=== PATIENT | male | born 1945 | race Caucasian/White ===

== ENCOUNTER → 2020-05-29 11:38 | Outpatient (CLI) | payer MEDICARE, SELFPAY ==
--- NOTE | ~2020-05-29 | CT_ITS ---
EXAMINATION: CT lung screening DATE: 05/29/2020 12:47 INDICATION: Personal history of tobacco dependence, current smoker with 30 pack year history TECHNIQUE: Computed tomography (CT) of the chest was performed without intravenous contrast. The dose -length product (DLP) was 144.58 mGy-cm. Automated exposure control and iterative reconstruction tech [employer] were employed. COMPARISON: 08/14/2019 FINDINGS: There is mild emphysema. There are stable 5 mm nodules of the right lower lobe on images 69 and 101. There are subpleural reticular and groundglass opacities with a lower lung zone predominanc e, likely mild chronic interstitial lung disease. There is no pleural effusion or pneumothorax. No pa thologically enlarged thoracic lymph nodes are identified. The heart size is normal. Calcified wise ry artery atherosclerosis is noted. There are bridging osteophytes at multiple levels in the spine, c onsistent with diffuse idiopathic skeletal hyperostosis (DISH). Pain management devices are implanted in the flanks with their leads coursing through the posterior subcutaneous tissues beyond the superi or margin of the CT. IMPRESSION: 1. Lung-RADS category 2: Benign appearance or behavior. Continue annual screening with noncontrast lo w-dose chest CT in 12 months. Reviewed, dictated and finalized at location B. IMPRESSION: 1. Lung-RADS category 2: Benign appearance or behavior. Continue annual screeni ng with noncontrast low-dose chest CT in 12 months.
== END ==
PROVIDERS: Visit Provider Family Medicine
DX: Z87.891 Personal history of nicotine dependence (principal)
CPT/HCPCS: G0297

== ENCOUNTER 2020-07-24 01:32 | Outpatient (CLI) | payer MEDICARE, SELFPAY ==
[2020-07-25 03:00] LABS: SARS-CoV-2 RNA PCR Negative
== END 2020-07-24 01:33 | disposition home or self-care (01) ==
LOC: ANHCOVIDDT 01:33
PROVIDERS: Visit Provider Internal Medicine Gastroenterology
DX: Z01.812 Encounter for preprocedural laboratory examination (principal); Z20.828 Contact with and (suspected) exposure to other viral communicable diseases
CPT/HCPCS: 87635; C9803; U0003

== ENCOUNTER 2020-07-26 01:26 | Day surgery (SDC) | payer MEDICARE, SELFPAY ==
[2020-07-23 13:19] VITALS: BMI 23.3
[2020-07-26 07:22] VITALS: BP 115/62; PULSE 55; RESP 18; TEMP 36.4; O2SAT 96
[2020-07-26] MEDS: LACTATED RINGERS 1,000 ML 150 ML IV CONT (07:31)
--- NOTE | 2020-07-26 07:35 | WPDANESEPPF ---
Anes - Initial Pre Proc Eval Procedure: Operation Date: 07/26/20 08:30 Proposed Procedures p Esophagogastroduodenoscopy - Armando Ang MD Date/Time: 07/26/20 07:35 Surgeon: Armando Ang MD Pre Op Diagnosis: Martin's Esophagus Patient Data Age: 75 Gender: M Height: 6 ft Weight: 80.2 kg Last Vital Signs Temp 36.4 C L 07/26/20 07:22 Pulse 55 L 07/26/20 07:22 Resp 18 07/26/20 07:22 BP 115/62 07/26/20 07:22 Pulse Ox 96 07/26/20 07:22 Allergies Allergy/AdvReac Type Severity Reaction Status Date / Time No Known Allergies Allergy Verified 07/26/20 07:21 Home Medications Medication Instructions Recorded Confirmed Type aspirin 81 mg PO DAILY 08/14/19 07/23/20 History fexofenadine [Allergy Relief 180 mg PO DAILY 08/14/19 07/23/20 History (fexofenadine)] hydrocodone-acetaminophen 1 tablet PO TID PRN 08/14/19 07/23/20 History lidocaine 1 patch TRANSDERMAL DAILY PRN 08/14/19 07/23/20 History nitroglycerin 1 tab-cap SUBLINGUAL Q15-20M PRN 08/14/19 07/23/20 History pantoprazole 40 mg PO DAILY 08/14/19 07/23/20 History duloxetine 20 mg capsule,delayed 20 mg PO BID #180 cap 01/16/20 07/23/20 Rx release zolpidem 10 mg tablet 10 mg PO .QHS #90 tablet 02/28/20 07/23/20 Rx tizanidine 4 mg capsule 4 mg PO BID #180 cap 03/26/20 07/23/20 Rx diclofenac sodium 75 mg 75 mg PO BID #180 tablet 04/09/20 07/23/20 Rx tablet,delayed release atorvastatin 20 mg PO HS 07/23/20 07/23/20 History bupropion HCl 150 mg PO DAILY 07/23/20 07/23/20 History cholecalciferol (vitamin D3) 25 mcg PO DAILY 07/23/20 07/23/20 History [Vitamin D3] cyanocobalamin (vitamin B-12) 1,000 mcg PO DAILY 07/23/20 07/23/20 History ferrous sulfate 142 mg PO DAILY 07/23/20 07/23/20 History morphine 07/23/20 History potassium 99 mg PO DAILY 07/23/20 07/23/20 History pregabalin 150 mg PO TID 07/23/20 07/23/20 History ropinirole 1 mg PO HS 07/23/20 07/23/20 History trimethoprim 100 mg PO DAILY 07/23/20 07/23/20 History Patient hx anesthesia problems: none Family hx anesthesia problems: none PMFSH Past Medical History Medical History Acute sepsis Anxiety Arthritis, lumbar spine Barretts esophagus BPH w/o urinary obs/LUTS CAD (coronary artery disease) Carpal tunnel syndrome DDD (degenerative disc disease) Delirium due to general medical condition Depression Elevated blood pressure reading without diagnosis of hypertension Elevated troponin Esophagitis GERD (gastroesophageal reflux disease) History of angina History of heart attack Hypercholesteremia Hyperlipidemia, unspecified Hypertension Infectious encephalopathy Left cataract Nicotine dependence, cigarettes, uncomplicated Nicotine dependence, unspecified, uncomplicated Normocytic anemia Occlusion and stenosis of bilateral carotid arteries Other intervertebral disc degeneration, thoracic region Pneumonia PVD (peripheral vascular disease) Sleep apnea Urinary tract infection UTI (urinary tract infection) Surgical History Surgical History History of angioplasty History of appendectomy History of laminectomy History of repair of right rotator cuff Hx of cardiac cath with 3 stents Family History Family History Grandparent Diabetes mellitus Mother Family history of cardiovascular disease Acute myocardial infarction Father Family history of Alzheimer's disease Social History Social History Smoking packs per day: 1 Smoking cigarettes per day: 20.0 Years smoked: 55 Smoking pack-years: 55.00 Smoking status: Current every day smoker Tobacco type: cigarettes Second hand tobacco smoke exposure: Yes Alcohol intake: current Drinks per week: 5 Substance use: never Substance use type: does not use Living arrangements: with [facility]
--- NOTE | 2020-07-26 07:54 | WPDGICN ---
Assessment and Plan Assessment and plan (1) Martin's esophagus: Code(s): K22.70 - Martin's esophagus without dysplasia Status: Acute Assessment and Plan: Patient with known Martin's esophagus felt to be secondary to acid reflux he has had low-grade dysplasia by endoscopic biopsy as recently as 2018. Plan is to continue proton pump inhibitor on daily basis. Strict anti reflux measures encouraged. Follow-up EGD did at least every 3 years but depending on results of histology (2) Gastro-esophageal reflux disease with esophagitis: Code(s): K21.0 - Gastro-esophageal reflux disease with esophagitis Status: Acute GI Consult Note Consult date/time: 07/26/20 07:54 HPI: Gregory Scherer is a 75 year old male Seen in evaluation at the request of Dr. Encarnacion. Patient has a known history of Martin's esophagus. He denies any heartburn or dysphagia. Most recent endoscopy in 2018 revealed low-grade dysplasia. Patient presents today for surveillance EGD with additional biopsies. Continued use of pantoprazole on a daily basis advised anti-reflux measures strongly encourage. Patient currently denies any overt symptoms. Review of Systems Review of Systems: All systems reviewed & are unremarkable except as noted in HPI and below PMFSH Past Medical History Medical History (Updated 07/26/20 @ 07:55 by Armando Ang MD) Acute sepsis Anxiety Arthritis, lumbar spine Barretts esophagus BPH w/o urinary obs/LUTS CAD (coronary artery disease) Carpal tunnel syndrome DDD (degenerative disc disease) Delirium due to general medical condition Depression Elevated blood pressure reading without diagnosis of hypertension Elevated troponin Esophagitis GERD (gastroesophageal reflux disease) History of angina History of heart attack Hypercholesteremia Hyperlipidemia, unspecified Hypertension Infectious encephalopathy Left cataract Nicotine dependence, cigarettes, uncomplicated Nicotine dependence, unspecified, uncomplicated Normocytic anemia Occlusion and stenosis of bilateral carotid arteries Other intervertebral disc degeneration, thoracic region Pneumonia PVD (peripheral vascular disease) Sleep apnea Urinary tract infection UTI (urinary tract infection) Surgical History Surgical History History of angioplasty History of appendectomy History of laminectomy History of repair of right rotator cuff Hx of cardiac cath with 3 stents Family History Family History Grandparent Diabetes mellitus Mother Family history of cardiovascular disease Acute myocardial infarction Father Family history of Alzheimer's disease Social History Social History Smoking packs per day: 1 Smoking cigarettes per day: 20.0 Years smoked: 55 Smoking pack-years: 55.00 Smoking status: Current every day smoker Tobacco type: cigarettes Second hand tobacco smoke exposure: Yes Alcohol intake: current Drinks per week: 5 Substance use: never Substance use type: does not use Living arrangements: with family Spiritual care concerns: No Agree to blood products: Yes Meds Home Medications and Allergies Home Medications Medication Instructions Recorded Confirmed Type aspirin 81 mg PO DAILY 08/14/19 07/23/20 History fexofenadine [Allergy Relief 180 mg PO DAILY 08/14/19 07/23/20 History (fexofenadine)] hydrocodone-acetaminophen 1 tablet PO TID PRN 08/14/19 07/23/20 History lidocaine 1 patch TRANSDERMAL DAILY PRN 08/14/19 07/23/20 History nitroglycerin 1 tab-cap SUBLINGUAL Q15-20M PRN 08/14/19 07/23/20 History pantoprazole 40 mg PO DAILY 08/14/19 07/23/20 History duloxetine 20 mg capsule,delayed 20 mg PO BID #180 cap 01/16/20 07/23/20 Rx release zolpidem 10 mg tablet 10 mg PO .QHS #90 tablet 02/28/20 07/23/20 Rx tizanidine 4 mg c
[2020-07-26 08:45] VITALS: BP 79/53; PULSE 47; RESP 21; O2SAT 98
[2020-07-26 08:55] VITALS: BP 84/53; PULSE 46; RESP 18; O2SAT 99
[2020-07-26 09:05] VITALS: BP 88/56; PULSE 47; RESP 20; O2SAT 99
[2020-07-26 09:15] VITALS: BP 104/63; PULSE 46; RESP 18; O2SAT 99
== END 2020-07-26 09:28 | disposition home or self-care (01) ==
PROVIDERS: PCP Family Medicine; Visit Provider Internal Medicine Gastroenterology
PROC: 0DJ08ZZ Inspection of Upper Intestinal Tract, Via Natural or Artificial Opening Endoscopic (ICD-10-PCS; CPT 43235; principal; 2020-07-26 08:30)
DX: K22.70 Barrett's esophagus without dysplasia (principal); K21.00 Gastro-esophageal reflux disease with esophagitis, without bleeding; Q39.4 Esophageal web; I10 Essential (primary) hypertension; I65.23 Occlusion and stenosis of bilateral carotid arteries; I73.9 Peripheral vascular disease, unspecified; I20.9 Angina pectoris, unspecified; E78.00 Pure hypercholesterolemia, unspecified; E78.5 Hyperlipidemia, unspecified; G47.30 Sleep apnea, unspecified; N40.0 Benign prostatic hyperplasia without lower urinary tract symptoms; M47.816 Spondylosis without myelopathy or radiculopathy, lumbar region; F41.9 Anxiety disorder, unspecified; F32.9 Major depressive disorder, single episode, unspecified; F17.210 Nicotine dependence, cigarettes, uncomplicated; Z95.5 Presence of coronary angioplasty implant and graft
CPT/HCPCS: 43239; 43450; 88305; 88342; J2704; J7120

== ENCOUNTER → 2021-06-30 08:16 | Outpatient (CLI) | payer MEDICARE, SELFPAY ==
--- NOTE | ~2021-06-30 | CT_ITS ---
EXAMINATION: CT lung screening DATE: 06/30/2021 08:47 INDICATION: Nicotine dependence, cigarettes, with unspecified nicotine-i TECHNIQUE: Computed tomography (CT) of the chest was performed without intravenous contrast. Addition al 3D reconstructions utilizing coronal maximum intensity projection (MIP) were performed. Automated exposure control and iterative reconstruction technique were employed. The dose-length product was 12 7.28 mGy-cm. COMPARISON: 05/29/2020 FINDINGS: Mild emphysema. Chronic irregular septal line thickening at the periphery of the lungs with lower alfonso g predominance without honeycombing consistent with nonspecific interstitial pneumonia (NSIP) pattern chronic interstitial lung disease. Again seen are several scattered small calcified and noncalcified pulmonary nodules. No interval meade ge in the 2 largest a 5 mm noncalcified nodules in the right lower lobe. No new or enlarging pulmonar y nodules, pneumonia, pulmonary edema or pleural effusion. Heart size is normal. Atherosclerotic oriana nary artery calcifications and possible stenting. Aortic valve calcification. Thoracic aorta is mikal l in caliber. No pathologically enlarged thoracic lymphadenopathy. 2 mm nonobstructing stone in upper pole calyx of the left kidney. Moderate thoracic spondylosis. Chronic mild anterior wedging at T5 an d T7. Intrathecal catheter extending cephalad along the upper lumbar and lower thoracic spine with di stal tip at level of T10. Pain management device is at the bilateral flanks with leads extending into the subcutaneous tissues overlying the posterior aspect of the upper thorax and additional leads ext ending into the visualized central canal of the lower cervical spine and beyond the cephalad margin o f the [id number]. IMPRESSION: 1. Lung-RADS category 2: Benign appearance or behavior. Continue annual screening with noncontrast lo w-dose chest CT in 12 months. 2. Mild emphysema with stable appearance of mild NSIP pattern chronic interstitial lung disease. Reviewed, dictated and finalized at location A. IMPRESSION: 1. Lung-RADS category 2: Benign appearance or behavior. Continue annual screeni ng with noncontrast low-dose chest CT in 12 months. 2. Mild emphysema with stable appearance of mild NSIP pattern chronic interstit ial lung disease.
== END ==
PROVIDERS: PCP Family Medicine; Visit Provider Physician Assistant
DX: Z12.2 Encounter for screening for malignant neoplasm of respiratory organs (principal); Z87.891 Personal history of nicotine dependence; J43.9 Emphysema, unspecified
CPT/HCPCS: 71271

== ENCOUNTER 2021-08-25 00:44 | Day surgery (SDC) | payer MEDICARE, SELFPAY ==
[2021-08-06 13:51] VITALS: BMI 23.9
--- NOTE | 2021-08-25 09:20 | WPDGICN ---
Assessment and Plan Assessment and plan (1) Encounter for screening colonoscopy: Code(s): Z12.11 - Encounter for screening for malignant neoplasm of colon Status: Acute Assessment and Plan: Patient appears to be at average risk for colon polyps. Referred for screening colonoscopy which will be performed today. (2) Paula's esophagus: Code(s): K22.70 - Paula's esophagus without dysplasia Status: Acute Assessment and Plan: Patient with Paula's esophagus. [place] be on the basis of chronic GE reflux disease most recent EGD in 2019 revealed no dysplasia. Anticipate follow-up EGD at 3 year intervals if symptoms remain stable. Continue PPI therapy. (3) Gastro-esophageal reflux disease with esophagitis: Code(s): K21.0 - Gastro-esophageal reflux disease with esophagitis Status: Acute Assessment and Plan: Patient has GE reflux appears stable on current therapy. GI Consult Note Consult date/time: 08/25/21 09:20 HPI: Gregory Scherer is a 76 year old male Presents for screening colonoscopy. Is been at least 10 years since last screening exam. His current weight appetite bowel movements are normal. Patient denies any blood in his stools. Family history noncontributory. Patient does have a past medical history of Paula's esophagus. Most recent EGD in 2019 revealed no dysplasia. He is anticipating follow-up EGD in 2022. Continue anti-reflux measures and PPI therapy. He denies heartburn or dysphagia. Review of Systems Review of Systems: All systems reviewed & are unremarkable except as noted in HPI and below PMFSH Past Medical History Medical History (Updated 08/25/21 @ 09:22 by Armando Ang MD) Abnormal findings on esophagogastroduodenoscopy (EGD) 07.26.20 paula's esophagus/ path pending esophageal web bougied Acute sepsis Anxiety Arthritis, lumbar spine Barretts esophagus BPH w/o urinary obs/LUTS CAD (coronary artery disease) Carpal tunnel syndrome DDD (degenerative disc disease) Delirium due to general medical condition Depression Elevated blood pressure reading without diagnosis of hypertension Elevated troponin Esophageal web egd 07.26.20 bougied Esophagitis GERD (gastroesophageal reflux disease) History of angina History of heart attack Hypercholesteremia Hyperlipidemia, unspecified Hypertension Infectious encephalopathy Left cataract Nicotine dependence, cigarettes, uncomplicated Nicotine dependence, unspecified, uncomplicated Normocytic anemia Occlusion and stenosis of bilateral carotid arteries Other intervertebral disc degeneration, thoracic region Pneumonia PVD (peripheral vascular disease) Sleep apnea Urethral stricture dilated Urinary tract infection UTI (urinary tract infection) Surgical History Surgical History (Updated 06/13/21 @ 14:56 by Twyla Reyes [employer]IC[employer]) History of angioplasty History of appendectomy (~1975) History of laminectomy (~01/13/19) History of repair of right rotator cuff (~1998) Hx of cardiac cath with 3 stents Family History Family History Grandparent Diabetes mellitus Mother Family history of cardiovascular disease Acute myocardial infarction Father Family history of Alzheimer's disease Social History Social History Smoking packs per day: 1 Smoking cigarettes per day: 20.0 Years smoked: 55 Smoking pack-years: 55.00 Tobacco type: cigarettes Second hand tobacco smoke exposure: Yes Alcohol intake: current Drinks per week: 5 Substance use: never Substance use type: does not use Living arrangements: with family Spiritual care concerns: No Agree to blood products: Yes Meds Home Medications and Allergies Home Medications Medication Instructions Recorded Confirmed Type fexofenadine [Allergy Relief 180 mg PO DAILY 08/14/19 11
[2021-08-25 09:32] VITALS: BP 102/72; PULSE 63; RESP 16; TEMP 35.7; O2SAT 98; BMI 23.7
[2021-08-25] MEDS: LACTATED RINGERS 1,000 ML 150 ML IV CONT (09:41)
--- NOTE | 2021-08-25 10:00 | WPDANESEPPF ---
Anes - Initial Pre Proc Eval Procedure: Operation Date: 08/25/21 10:00 Proposed Procedures p Screening Colonoscopy - Armando Ang MD Date/Time: 08/25/21 10:00 Surgeon: Armando Ang MD Pre Op Diagnosis: neoplasm screening Patient Data Age: 76 Gender: M Height: 1.83 m Weight: 79.3 kg Last Vital Signs Temp 96.3 F L 08/25/21 09:32 Pulse 63 08/25/21 09:32 Resp 16 08/25/21 09:32 BP 102/72 08/25/21 09:32 Pulse Ox 98 08/25/21 09:32 Allergies Allergy/AdvReac Type Severity Reaction Status Date / Time No Known Allergies Allergy Verified 08/25/21 09:28 Home Medications Medication Instructions Recorded Confirmed Type fexofenadine [Allergy Relief 180 mg PO DAILY 08/14/19 08/06/21 History (fexofenadine)] hydrocodone-acetaminophen 1 tablet PO TID PRN 08/14/19 08/06/21 History lidocaine 1 patch TRANSDERMAL DAILY PRN 08/14/19 08/06/21 History nitroglycerin 1 tab-cap SUBLINGUAL Q15-20M PRN 08/14/19 08/06/21 History cholecalciferol (vitamin D3) 25 mcg PO DAILY 07/23/20 08/06/21 History [Vitamin D3] cyanocobalamin (vitamin B-12) 1,000 mcg PO DAILY 07/23/20 08/06/21 History ferrous sulfate 142 mg PO DAILY 07/23/20 08/06/21 History morphine 07/23/20 06/22/21 History potassium 99 mg PO DAILY 07/23/20 08/06/21 History trimethoprim 100 mg PO DAILY 07/23/20 08/06/21 History bupropion HCl 150 mg 24 hr tablet, See Rx Instructions .ROUTE 12/23/20 08/06/21 Rx extended release .COMPLEX #90 tablet duloxetine 20 mg capsule,delayed See Rx Instructions .ROUTE 05/06/21 08/06/21 Rx release .COMPLEX #180 cap zolpidem 10 mg tablet 10 mg PO QHS #90 tablet 05/27/21 08/06/21 Rx pantoprazole 40 mg tablet,delayed 40 mg PO BID #180 tablet 05/28/21 08/06/21 Rx release pregabalin 150 mg capsule 150 mg PO TID 90 Days #270 cap 08/04/21 08/06/21 Rx atorvastatin 20 mg tablet See Rx Instructions .ROUTE 08/22/21 08/25/21 Rx .COMPLEX #90 tablet diclofenac sodium 75 mg See Rx Instructions .ROUTE 08/22/21 08/25/21 Rx tablet,delayed release .COMPLEX #180 tablet ropinirole 1 mg tablet See Rx Instructions .ROUTE 08/22/21 08/25/21 Rx .COMPLEX #90 tablet tizanidine 4 mg capsule See Rx Instructions .ROUTE 08/22/21 08/25/21 Rx .COMPLEX #180 cap Patient hx anesthesia problems: none Family hx anesthesia problems: none Results Review: All pre-operative results and documents have been reviewed as part of the pre-operative evaluation. [facility] Past Medical History Medical History (Updated 08/25/21 @ 09:22 by Armando Ang MD) Abnormal findings on esophagogastroduodenoscopy (EGD) .20 paula's esophagus/ path pending esophageal web bougied Acute sepsis Anxiety Arthritis, lumbar spine Barretts esophagus BPH w/o urinary obs/LUTS CAD (coronary artery disease) Carpal tunnel syndrome DDD (degenerative disc disease) Delirium due to general medical condition Depression Elevated blood pressure reading without diagnosis of hypertension Elevated troponin Esophageal web egd .20 bougied Esophagitis GERD (gastroesophageal reflux disease) History of angina History of heart attack Hypercholesteremia Hyperlipidemia, unspecified Hypertension Infectious encephalopathy Left cataract Nicotine dependence, cigarettes, uncomplicated Nicotine dependence, unspecified, uncomplicated Normocytic anemia Occlusion and stenosis of bilateral carotid arteries Other intervertebral disc degeneration, thoracic region Pneumonia PVD (peripheral vascular disease) Sleep apnea Urethral stricture dilated Urinary tract infection UTI (urinary tract infection) Surgical History Surgical History (Updated 06/13/21 @ 14:56 by Twyla Reyes CMA) History of angioplasty History of appendectomy (~1975) History of laminectomy (~01/13/19) History of repair of right rotator cuff (~1998) Hx of cardiac cath with 3 stents Family History Family History Sunni
[2021-08-25 10:17] VITALS: BP 91/67; PULSE 62; RESP 13; O2SAT 100
[2021-08-25 10:27] VITALS: BP 92/47; PULSE 61; RESP 16; O2SAT 95
[2021-08-25 10:37] VITALS: BP 127/74; PULSE 54; RESP 16; O2SAT 99
[2021-08-25 10:47] VITALS: BP 118/76; PULSE 57; RESP 16; O2SAT 99
== END 2021-08-25 11:12 | disposition home or self-care (01) ==
PROVIDERS: PCP Family Medicine; Visit Provider Internal Medicine Gastroenterology
PROC: 0DJD8ZZ Inspection of Lower Intestinal Tract, Via Natural or Artificial Opening Endoscopic (ICD-10-PCS; CPT 45378; principal; 2021-08-25 10:00)
DX: Z12.11 Encounter for screening for malignant neoplasm of colon (principal); K64.8 Other hemorrhoids; K57.30 Diverticulosis of large intestine without perforation or abscess without bleeding; K22.70 Barrett's esophagus without dysplasia; K21.00 Gastro-esophageal reflux disease with esophagitis, without bleeding; M19.90 Unspecified osteoarthritis, unspecified site; N40.0 Benign prostatic hyperplasia without lower urinary tract symptoms; I25.10 Atherosclerotic heart disease of native coronary artery without angina pectoris; F41.8 Other specified anxiety disorders; E78.00 Pure hypercholesterolemia, unspecified; I10 Essential (primary) hypertension; E78.5 Hyperlipidemia, unspecified; D64.9 Anemia, unspecified; I73.9 Peripheral vascular disease, unspecified; G47.30 Sleep apnea, unspecified; I65.23 Occlusion and stenosis of bilateral carotid arteries; G56.00 Carpal tunnel syndrome, unspecified upper limb; M51.34 Other intervertebral disc degeneration, thoracic region; F17.210 Nicotine dependence, cigarettes, uncomplicated
CPT/HCPCS: G0121; J2704; J7120

== ENCOUNTER 2021-08-29 15:47 | Emergency (ER) | payer MEDICARE, SELFPAY ==
--- NOTE | ~2021-08-29 | XR_ITS ---
EXAMINATION: XR nasal bones min 3V EXAM DATE: 08/29/2021 16:17 INDICATION: Fell today. Nose pain. TECHNIQUE: Frontal and bilateral lateral projections of the nasal bones. There are no prior studies for comparison. FINDINGS: There may be some soft tissue swelling over the nose. No nasal bone fracture. Orbital rims appear intact. IMPRESSION: No nasal bone fracture. Reviewed, dictated and finalized at location A. ER IMPRESSION: No nasal bone fracture.
--- NOTE | ~2021-08-29 | XR_ITS ---
EXAMINATION: XR wrist LT min 3V, XR forearm LT 2V EXAM DATE: 08/29/2021 16:17 (accession [id number]), 08/29/2021 16:16 (accession [id number]) INDICATION: Fall, left wrist, forearm pain. TECHNIQUE: Left wrist frontal, frontal with ulnar deviation, oblique and lateral projections obtained and reviewed. Frontal and lateral projections left forearm. There are no prior studies for comparis on. FINDINGS: Left wrist scapholunate joint space is maintained. There are no acute forearm or wrist frac tures or dislocations identified. There is no subcutaneous gas. The soft tissue is unremarkable. There are no radiopaque foreign bodies. IMPRESSION: Left forearm, wrist exam without acute osseous findings. Reviewed, dictated and finalized at location A. MECHANIC IMPRESSION: Left forearm, wrist exam without acute osseous findings.
--- NOTE | 2021-08-29 15:54 | ED.FALL ---
HPI - Fall General Chief Complaint: Fall Stated Complaint: fall Time Seen by Provider: 08/29/21 15:54 Source: patient, RN notes reviewed and old records reviewed Mode of arrival: ambulatory Limitations: no limitations History of Present Illness HPI Narrative: 76-year-old male presents with daughter post slip and fall landing on his left arm. Patient also fell and hit his face, small cut noted to the top of the nose, bleeding is controlled. Significant bruising noted. Pain on the ulnar aspect distal forearm and ulnar aspect wrist and hand. Has bruising across the forehead and the nose. Patient denies any loss of consciousness. No headaches, blurry vision, change in vision. Denies chest pain or shortness of breath. No neck pain, midline tenderness. Denies dizziness. Multiple discussions had with patient and daughter in regards to going to the ER for evaluation, concern for brain bleed or fractures of the spine. Both patient and daughter stated that they just want to be evaluated for the wrist today. Also requesting an x-ray of the nose. Discussed that x-rays are limited for face syndrome more accurate would be a CT scan and he would have to go to the ER. Both had declined at this time and would [facility]. Patient's daughter states he is up-to-date with his tetanus. Related Data Home Medications Medication Instructions Recorded Confirmed fexofenadine [Allergy Relief 180 mg PO DAILY 08/14/19 08/29/21 (fexofenadine)] hydrocodone-acetaminophen 1 tablet PO TID PRN 08/14/19 08/29/21 lidocaine 1 patch TRANSDERMAL DAILY PRN 08/14/19 08/29/21 nitroglycerin 1 tab-cap SUBLINGUAL Q15-20M 08/14/19 08/06/21 cholecalciferol (vitamin D3) 25 mcg PO DAILY 07/23/20 08/29/21 [Vitamin D3] cyanocobalamin (vitamin B-12) 1,000 mcg PO DAILY 07/23/20 08/29/21 ferrous sulfate 142 mg PO DAILY 07/23/20 08/29/21 morphine DIRECTED 07/23/20 06/22/21 potassium 99 mg PO DAILY 07/23/20 08/29/21 trimethoprim 100 mg PO DAILY 07/23/20 08/29/21 Allergies Allergy/AdvReac Type Severity Reaction Status Date / Time No Known Allergies Allergy Verified 08/29/21 15:58 Review of Systems Review of Systems: All systems reviewed & are unremarkable except as noted in HPI and below Constitutional: Constitutional: Reports no additional constitutional complaints, Denies chills and Denies fever(s) Eyes: Eyes: Reports no additional eye complaints, Denies change in vision and Denies photophobia ENT: Reports as per HPI, Denies dizziness and Denies nasal congestion Cardiovascular: Cardiovascular: Reports no additional cardiovascular complaints and Denies chest pain Respiratory: Respiratory: Reports no additional respiratory complaints, Denies cough and Denies dyspnea Gastrointestinal: Gastrointestinal: Reports no additional gastrointestinal complaints, Denies abdominal pain, Denies nausea and Denies vomiting Musculoskeletal: Musculoskeletal: Reports as per HPI Comments: Left wrist, forearm Integumentary/Breasts: Skin/Breast: Reports as per HPI Neurologic: Reports system reviewed and no additional complaints, except as documented, Denies confusion, Denies vertigo, Denies dizziness, Denies syncope, Denies headache(s), Denies focal weakness, Denies numbness and Denies weakness Psychiatric: Psychiatric: Reports no additional psychiatric complaints Allergic/Immunologic: Allergic/Immunologic: Reports no additional allergic/immunologic complaints [facility] Past Medical History Medical History (Updated 08/29/21 @ 17:32 by Maryjane Mishra) Abnormal findings on esophagogastroduodenoscopy (EGD) 11.6.20 paula's esophagus/ path pending esophageal web bougied Acute sepsis Anxiety Arthritis, lumbar spine Barretts esophagus BPH w/o urinary obs/LUTS CAD (coronary artery disease) Carpal tunnel syndrome DDD (degenerative disc disease) Delirium due to general medical condition Depression Elevated blood pressure reading without d
[2021-08-29 16:24] VITALS: BP 162/64; PULSE 62; RESP 18; TEMP 36.4; O2SAT 97
== END 2021-08-29 16:42 | disposition home or self-care (01) ==
PROVIDERS: Emergency Provider Nurse Practitioner; PCP Family Medicine
DX: S01.21XA Laceration without foreign body of nose, initial encounter (principal); W19.XXXA Unspecified fall, initial encounter; M25.532 Pain in left wrist; Z87.891 Personal history of nicotine dependence; M47.816 Spondylosis without myelopathy or radiculopathy, lumbar region; K22.70 Barrett's esophagus without dysplasia; N40.0 Benign prostatic hyperplasia without lower urinary tract symptoms; I25.10 Atherosclerotic heart disease of native coronary artery without angina pectoris; K21.9 Gastro-esophageal reflux disease without esophagitis; I65.23 Occlusion and stenosis of bilateral carotid arteries; I73.9 Peripheral vascular disease, unspecified; G47.30 Sleep apnea, unspecified
CPT/HCPCS: 12011; 70160; 73090; 73110; 99214; G0463

== ENCOUNTER 2021-12-17 11:50 | Outpatient (CLI) | payer MEDICARE, SELFPAY ==
--- NOTE | ~2021-12-17 | XR_ITS ---
EXAMINATION: XR scoliosis survey DATE: 12/17/2021 12:36 INDICATION: Scoliosis. TECHNIQUE: Upright and lateral views of the entire spine standing were obtained. COMPARISON: CT chest, abdomen, and pelvis 08/14/2019 FINDINGS: There is 14 degrees dextroscoliosis of thoracolumbar spine from T12 to L4 by the Campos metho d. There is kyphosis of lumbar spine. There is chronic height loss of L4 and L5 vertebral bodies. The re is severely decreased disc height from L2-L3 through L5-S1 with endplate remodeling. There is mild chronic anterior wedging of T5 and T7 vertebral bodies. There is mild thoracic spondylosis. There ar e electrodes in the posterior thorax soft tissues. There are epidural electrodes in cervical spine. IMPRESSION: 1. 14 degrees dextroscoliosis of thoracolumbar spine. 2. Mild thoracic spondylosis and severe lumbar spondylosis. Reviewed, dictated and finalized at location A.
== END 2021-12-17 11:51 | disposition home or self-care (01) ==
PROVIDERS: PCP Family Medicine; Visit Provider Neurological Surgery
DX: M41.9 Scoliosis, unspecified (principal); M47.894 Other spondylosis, thoracic region; M47.896 Other spondylosis, lumbar region
CPT/HCPCS: 72082

== ENCOUNTER 2022-01-06 09:16 | Outpatient (CLI) | payer MEDICARE, SELFPAY ==
--- NOTE | 2022-01-06 09:27 | ECG_ITS ---
Vent rate 67 BPM AL int 366 ms DRS dur 134 ms QT/QTc 407/422 ms P-R-T axes -20 157 73 Avg RR 893 ms QTcB 430 ms OTcF 422 ms Normal Sinus Rhythm INTRAVENTRICULAR CONDUCTION DELAY Electronically Signed On 01-14-2022 13:08:42 CDT by Ember GUPTA
== END 2022-01-06 09:17 | disposition home or self-care (01) ==
LOC: ANHSURGERY 09:23
PROVIDERS: PCP Family Medicine; Visit Provider Urology
DX: N40.0 Benign prostatic hyperplasia without lower urinary tract symptoms (principal); E78.00 Pure hypercholesterolemia, unspecified; Z01.818 Encounter for other preprocedural examination
CPT/HCPCS: 87077; 87086; 87088; 87186; 93005

== ENCOUNTER 2022-01-13 00:50 | Day surgery (SDC) | payer MEDICARE, SELFPAY ==
[2021-12-31 14:04] VITALS: BMI 21.8
--- NOTE | 2021-12-31 14:38 | PC.NURSE ---
Report to the Outpatient Waiting Room, entrance under the green pavilion located off [facility], at time _6:00AM on date __01/13/22 . OR Time: __7:30AM . - You and your visitor will be asked a series of questions to screen for COVID 19 for your protection. - A mask is required within the hospital. Preoperative COVID Testing Requirements: No COVID Test needed if: (proof is required; if not received patient will have Rapid Test prior to entry) - Patient has received COVID Vaccine at least 14 days prior to procedure date or - Patient has positive COVID test result within last 90 days of surgery date. COVID Test needed if above criteria is not met If not COVID vaccinated a COVID test must be conducted within 72 hours of surgery and patient is asked to isolate self from time of testing until procedure. You will go to the [facility] for your COVID testing. The [facility] is located at the corner of [address] [facility]. You will only be called if COVID results are positive and your surgeon may reschedule your elective surgery date. Patients may have clear liquids (water, carbonated beverages, clear teas, apple juice) until 3 hours prior to surgery with a maximum of 20 ounces. - No food from midnight until time of surgery - Infants may have breast milk until 4 hours before surgery, formula 6 hours prior to surgery. - Children will be allowed to drink immediately following surgery. If applicable, please bring a bottle or sippy cup to assist with drinking. Juice, water, soda, and popsicles are readily available. For infants on formula, please bring formula the day of surgery. Pacifiers are allowed. Take the following medications with a SIP of water the morning of surgery: _BUPROPION, DULOXETINE, HYDROCODONE NEEDED, TRIMETHOPRIM Medications to discontinue per physician HOLD ASPIRIN 7 DAYS PRE-OP- LAST DOSE 01/06/22, HOLD ALL VITAMINS/SUPPLEMENTS( VIT D & VIT B) 3 DAYS NM-OP, LAST DOSE 01/09/22__ Please no make-up, nail urdu, hairspray, perfume, deodorant, or body powder the day of surgery. No jewelry (including any body piercings) or valuables the day of surgery, leave them at home. Please take a shower or bath the night before, or the morning of, surgery with an antibacterial soap. Wear comfortable, loose fitting clothing. Children are encouraged to wear pajamas. - Jewelry must be removed prior to entering the operating room. Rings and piercings that are not removed may be cut off. - The hospital will not accept responsibility for valuables. - Please leave all valuables, including medications, at home the day of surgery. If you are going home after surgery, a licensed locomotive driver must drive you home. - NO public transportation without another adult. - We recommend that an adult stay with you for 24 hours following discharge. - We also recommend that you do not drive, make important decision, drink alcoholic beverages, or take any drugs that were not prescribed by your health care provider for at least 24 hours after your discharge time. For Pediatric surgeries, we recommend two adults accompany the child home (only one inside the building at this time). One visitor will be allowed to accompany the patient into the hospital. Patients visitor will be instructed to remain with patient at all times or leave the building. We will allow the visitor to come back to the postoperative area when patient is ready. Follow any additional instructions given to you from your surgeon. Telephone instructions given to __PATIENT and asked if any additional questions and then verbalized understanding. Patient advised to call surgeon office or pre surgery nurse liaison [phone] if any additional questions.
[2022-01-13] VITALS (9 sets, daily range): BP systolic 125–152; BP diastolic 62–80; PULSE 51–78; RESP 10–18; TEMP 36.4–36.5; O2SAT 95–100
--- NOTE | 2022-01-13 06:56 | WPDANESEPPF ---
Anes - Initial Pre Proc Eval Procedure: Operation Date: 01/13/22 07:30 Proposed Procedures p Flexible Cystoscopy - Zak Holley MD s Circumcision - Zak Holley MD Date/Time: 01/13/22 06:56 Surgeon: Zak Holley MD Pre Op Diagnosis: BPH, Phimosis Patient Data Age: 76 Gender: M Height: 1.83 m Weight: 81.1 kg Last Vital Signs Temp 36.4 C 01/13/22 06:28 Pulse 51 L 01/13/22 06:28 Resp 18 01/13/22 06:28 BP 140/62 01/13/22 06:28 Pulse Ox 96 01/13/22 06:28 Allergies Allergy/AdvReac Type Severity Reaction Status Date / Time No Known Allergies Allergy Verified 01/13/22 06:10 Home Medications Medication Instructions Recorded Confirmed Type fexofenadine [Allergy Relief 180 mg PO DAILY 08/14/19 01/13/22 History (fexofenadine)] hydrocodone-acetaminophen 1 tablet PO TID PRN 08/14/19 01/13/22 History lidocaine 1 patch TRANSDERMAL DAILY PRN 08/14/19 12/31/21 History cholecalciferol (vitamin D3) 25 mcg PO DAILY 07/23/20 01/13/22 History [Vitamin D3] cyanocobalamin (vitamin B-12) 1,000 mcg PO DAILY 07/23/20 01/13/22 History morphine See Rx Instructions .ROUTE .COMPLEX 07/23/20 12/31/21 History potassium 99 mg PO DAILY 07/23/20 01/13/22 History trimethoprim 100 mg PO QAM 07/23/20 01/13/22 History pantoprazole 40 mg tablet,delayed 40 mg PO BID #180 tablet 05/28/21 01/13/22 Rx release zolpidem 10 mg tablet 10 mg PO QHS #90 tablet 08/27/21 01/13/22 Rx aspirin [Adult Low Dose Aspirin] 81 mg PO DAILY 12/31/21 01/13/22 History atorvastatin 20 mg PO DAILY 12/31/21 01/13/22 History bupropion HCl 150 mg PO QAM 12/31/21 01/13/22 History diclofenac sodium 75 mg PO BID 12/31/21 01/13/22 History duloxetine 20 mg PO QAM 12/31/21 01/13/22 History nitroglycerin 0.4 mg SUBLINGUAL Q5-10M PRN 12/31/21 12/31/21 History ropinirole 1 mg PO HS 12/31/21 01/13/22 History tamsulosin 0.4 mg PO HS 12/31/21 01/13/22 History tizanidine 4 mg PO BID 12/31/21 01/13/22 History Patient hx anesthesia problems: none Family hx anesthesia problems: none Results Review: All pre-operative results and documents have been reviewed as part of the pre-operative evaluation. [facility] Past Medical History Medical History Abnormal findings on esophagogastroduodenoscopy (EGD) .20 paula's esophagus/ path pending esophageal web bougied Acute sepsis Anxiety Arthritis, lumbar spine Barretts esophagus BPH w/o urinary obs/LUTS CAD (coronary artery disease) Carpal tunnel syndrome DDD (degenerative disc disease) Delirium due to general medical condition Depression Elevated blood pressure reading without diagnosis of hypertension Elevated troponin Esophageal web egd .03.09 bougied Esophagitis GERD (gastroesophageal reflux disease) History of angina History of heart attack Hypercholesteremia Hyperlipidemia, unspecified Hypertension Infectious encephalopathy Left cataract Nicotine dependence, cigarettes, uncomplicated Nicotine dependence, unspecified, uncomplicated Normocytic anemia Occlusion and stenosis of bilateral carotid arteries Other intervertebral disc degeneration, thoracic region Pneumonia PVD (peripheral vascular disease) Sleep apnea Urethral stricture dilated Urinary tract infection UTI (urinary tract infection) Surgical History Surgical History History of angioplasty History of appendectomy (~1975) History of laminectomy (~01/13/19) History of repair of right rotator cuff (~1998) Hx of cardiac cath with 3 stents Family History Family History Grandparent Diabetes mellitus Mother Family history of cardiovascular disease Acute myocardial infarction Father Family history of Alzheimer's disease Social History Social History Smoking packs per day: 1 Sm
[2022-01-13] MEDS: LACTATED RINGERS 1,000 ML 30 ML IV CONT (07:12)
--- NOTE | 2022-01-13 07:23 | WPDHPUPDATE1 ---
History and Physical Update Update Date/Time: 01/13/22 07:23 History and Physical has been reviewed, including an updated exam of the patient. There are NO changes in the patient's condition. Risks, benefits, and alternatives have been discussed and questions answered. Patient agrees to proceed with procedure. Proceed with circumcision and cystoscopy
[2022-01-13] MEDS: ceFAZolin 2 GM/D5W 50 ML 2 GM/50 ML BAG IVPB (07:30)
[2022-01-13] MEDS: BUPIVACAINE HCL 0.5% PF 30 ML VIAL 10 ML INFILTRATE (07:44)
--- NOTE | 2022-01-13 08:35 | W.PM.PROC2 ---
Procedure Note - Detailed Date of Procedure 01/13/22 Pre-op Diagnosis BPH, Phimosis Post-op Diagnosis Same (Meatal stenosis-hypospadiac glanular meatus) Procedure Performed Urethral dilation, flexible cystoscopy, circumcision revision Surgeon Zak Holley MD Anesthesia General Description of Procedure Patient was taken the operative suite correctly identified. Once anesthesia was obtained was prepped draped usual sterile fashion. He had a very tight phimosis with with skin that had the appearance of some BXO. We proceeded to do a dorsal slit in order to retract the foreskin back. Upon retraction it was noted that he had an opening that almost had the appearance of hypospadias with the opening at the coronal ridge area. This was tight and thus we dilated up to 20 Romanian. Sixteen Romanian flexible scope was then inserted. He had some mild bulbar narrowing but allowed passage of the scope. Prostate had some mild lateral lobe hypertrophy. The bladder itself has 1+ trabeculation. Both ureteral orifices normal anatomic position. No tumors noted. Scope was removed. At this point time given the appearance of prior surgical intervention he did not have a lot of foreskin. Simply excised the tissue circumferentially that appeared fibrosed and stenotic. We then reapproximated the skin using 3-0 chromic in interrupted fashion. Patient had minimal subcoronal tissue at the dorsal aspect. We approximated as well as could be expected. Some of this will need to simply heal over with time. Antibiotic ointment was placed around the incision and Xeroform gauze was placed. The patient's then notified me postoperatively that he had circumcision as a child with some sort of revision at the age of 9 or 10. This was not mentioned by the patient initially. Drains No Packing No Pathology Yes Complications No immediate complications Condition Stable Disposition PACU
== END 2022-01-13 10:30 | disposition home or self-care (01) ==
PROVIDERS: PCP Family Medicine; Visit Provider Urology
PROC: (CPT 52352; principal; 2022-01-13 07:30)
PROC: (CPT 54161; 2022-01-13 07:30)
DX: N40.0 Benign prostatic hyperplasia without lower urinary tract symptoms (principal); N47.1 Phimosis; N35.911 Unspecified urethral stricture, male, meatal; N48.0 Leukoplakia of penis; I10 Essential (primary) hypertension; E78.5 Hyperlipidemia, unspecified; K21.9 Gastro-esophageal reflux disease without esophagitis; F41.8 Other specified anxiety disorders; I25.10 Atherosclerotic heart disease of native coronary artery without angina pectoris; I25.2 Old myocardial infarction; I73.9 Peripheral vascular disease, unspecified; Z95.5 Presence of coronary angioplasty implant and graft; F17.210 Nicotine dependence, cigarettes, uncomplicated
CPT/HCPCS: 52281; 54161; 88304; A9270; C1769; J0690; J1100; J2370; J2405; J2704; J3010; J7120

== ENCOUNTER → 2022-05-12 14:19 | Outpatient (CLI) | payer MEDICARE, SELFPAY ==
--- NOTE | ~2022-05-12 | XR_ITS ---
EXAMINATION: XR facial bones min 3V DATE: 05/12/2022 15:09 INDICATION: Unspecified injury of face, initial encounter. TECHNIQUE: 3 views of the facial bones were obtained. COMPARISON: Nasal bone radiographs 08/29/2021, head CT 08/14/2019 FINDINGS: Bone alignment is normal. No fracture. IMPRESSION: 1. No fracture. Reviewed, dictated and finalized at location A. IMPRESSION: 1. No fracture.
--- NOTE | ~2022-05-12 | XR_ITS ---
EXAMINATION: XR shoulder LT min 2V, XR humerus LT DATE: 05/12/2022 15:09 INDICATION: Left shoulder and proximal humeral pain. TECHNIQUE: 1. AP internally and externally rotated, AP oblique externally rotated, axillary and transscapular Y views of the affected shoulder were obtained. 2. Internal and externally rotated views of the left humerus were obtained. COMPARISON: 12/28/2016 FINDINGS: Again seen is an old fracture lateral left clavicle, unclear whether this has united or remains nonun ited from the provided projections. No acute fractures identified. Mild osteoarthritis at the left ac romioclavicular and glenohumeral joints as well as at the radiocapitellar articulation of the left el bow joint. Electric stimulator leads project over the lateral left infraclavicular region. Soft tissu es are unremarkable. Visualized portion of the left lung are clear. Additional stimulator leads proje ct over the lower cervical and upper thoracic spine. IMPRESSION: 1. Old nondisplaced fracture of the lateral left clavicle, unclear whether this remains united or unu nited. If clinically indicated, CT could be obtained for more definitive determination. No acute osse ous abnormality. 2. Mild osteoarthritis at the left shoulder and elbow. Reviewed, dictated and finalized at location A. IMPRESSION: 1. Old nondisplaced fracture of the lateral left clavicle, unclear whether this remains united or ununited. If clinically indicated, CT could be obtained for more definitive determination. No acute osseous abnormality. 2. Mild osteoarthritis at the left shoulder and elbow.
== END ==
PROVIDERS: PCP Family Medicine; Visit Provider Physician Assistant
DX: S09.93XA Unspecified injury of face, initial encounter (principal); X58.XXXA Exposure to other specified factors, initial encounter; M19.022 Primary osteoarthritis, left elbow; M19.012 Primary osteoarthritis, left shoulder
CPT/HCPCS: 70150; 73030; 73060

== ENCOUNTER 2022-06-10 07:49 | Outpatient (CLI) | payer MEDICARE, SELFPAY ==
--- NOTE | 2022-07-09 07:50 | WPDSLEEPSTUD ---
Sleep Study Date of Study: 06/10/22 Ordering Provider: Dayton Irby PA-C Interpreting Physician: Peace Curtis DO Sleep Study Type: Split Polysomnogram Height: 1.83 m Weight: 79.379 kg Body Mass Index: 23.7 Neck Circumference (inches): 16.5 [place]: 5 Reason for Sleep Study Previously diagnosed sleep apnea. Not currently on CPAP. Sleep History The patient is a 71-year-old male with anxiety, Paula's esophagus coronary artery disease depression, GERD hyperlipidemia, hypertension, peripheral vascular disease tobacco use and previously diagnosed sleep apnea a sleep study ordered by his primary care to requalify for PAP. The patient denies awakening from sleep short of breath. He rarely awakens at night with heartburn, belching or. He constantly snores and is frequently loud enough others complain. He rarely has trouble sleeping when he has a cold. He denies waking up gasping for throughout the night. He occasionally has breathing problems at night observed himself or others. He denies sweating excessively at night. He denies having heart palpitations or irregular heartbeats during the night. He frequently falls asleep during the but never while driving. He denies sleep paralysis, cataplexy and hypnagogic / hypnopompic hallucinations. He denies feeling afraid of going to sleep. He denies having nightmares. He denies remembering his dreams. He denies having racing through his mind. He denies feeling sad or depressed. He rarely has anxiety. He rarely has muscular tension. He rarely notices parts of his body jerk. He denies kicking during the night. He denies having crawling and aching feelings in his legs. He occasionally has leg pain during the night. He denies grinding his teeth during sleep and denies awakening with morning jaw pain. He is constantly pain during the day but rarely awakened by pain during the night. He rarely wakes feeling stiff in the morning. He occasionally wakes with sore achy muscles. He constantly wakes with pain in the neck, spine other joints. He goes to bed at 10:30 p.m. on both weekdays and weekends. It takes him 10 minutes to fall asleep. Wakes up 2-3 times throughout the night to urinate. He is able to fall back asleep within to 10 minutes. He wakes up at 8:30 a.m. on both weekdays and weekends. He typically gets 8-10 hours of sleep night. He will stay in bed for 1 hour after waking up in the morning. He currently lives with his . he does not consume any caffeinated beverages within 2 hours of bedtime. He does engage in physical exercise before bedtime. He denies reading watching television before falling asleep. He will take naps afternoon or the evening and they are refreshing. He drinks 1 cup of coffee morning. He quit smoking cigarettes about 1 month ago. He drinks alcohol socially. He denies recreational drug use. [facility] Past Medical History Medical History Abnormal findings on esophagogastroduodenoscopy (EGD) 11.6.20 paula's esophagus/ path pending esophageal web bougied Acute sepsis Anxiety Arthritis, lumbar spine Barretts esophagus BMI 29.0-29.9,adult BPH w/o urinary obs/LUTS CAD (coronary artery disease) Carpal tunnel syndrome Chronic UTI DDD (degenerative disc disease) Delirium due to general medical condition Depression Elevated blood pressure reading without diagnosis of hypertension Elevated troponin Encounter to establish care Esophageal web egd 11.6.20 bougied Esophagitis GERD (gastroesophageal reflux disease) History of angina History of heart attack Hypercholesteremia Hyperlipidemia, unspecified Hypertension Infectious encephalopathy Left cataract Nicotine dependence, cigarettes, uncomplicated Nicotine dependence, unspecified, uncomplicated Normocytic anemia Occlusion and stenosis of bilateral carotid arteries On lobsterman drug therapy Other intervertebral disc degeneration, thoraci
[2022-07-09 09:40] VITALS: BMI 23.7
== END 2022-06-11 07:10 | disposition home or self-care (01) ==
LOC: ANHCSM 07:51
PROVIDERS: PCP Family Medicine; Visit Provider Physician Assistant
DX: G47.39 Other sleep apnea (principal)
CPT/HCPCS: 95811

== ENCOUNTER 2022-06-21 15:52 | Emergency (ER) | payer MEDICARE, SELFPAY ==
[2022-06-21] VITALS (20 sets, daily range): BP systolic 111–172; BP diastolic 52–84; PULSE 54–71; RESP 8–22; TEMP 36.9; O2SAT 96–100
--- NOTE | ~2022-06-21 | CT_ITS ---
EXAMINATION: CT brain wo con DATE: 06/21/2022 18:31 INDICATION: head injury 1 week ago . TECHNIQUE: Computed tomography (CT) of the head was performed without intravenous contrast. The mA wa s adjusted according to patient size. Iterative reconstruction technique was employed. The dose-lengt h product was 605.33 mGy-cm. COMPARISON: 08/14/2019 FINDINGS: No acute intracranial hemorrhage or extra-axial fluid collection. No hydrocephalus, mass, or herniation. No acute ischemic infarct. Unremarkable dural venous sinus attenuation. No acute osseous abnormality. Unfused C1 posterior arch. Left frontal soft tissue contusion. The aerated spaces are clear. Mild chronic white matter change. Moderate atrophy. Atherosclerotic intracranial calcifications. IMPRESSION: No acute intracranial process. Reviewed, dictated and finalized at location K.
--- NOTE | 2022-06-21 16:07 | ECG_ITS ---
Measurements Intervals [place] Rate: 66 P: 98 NC: 153 QRS: -43 QRSD: 137 T: 80 QT: 422 QTc: 443 Interpretive Statements SINUS RHYTHM WITH OCCASIONAL VENTRICULAR PREMATURE COMPLEXES MARKED LEFT AXIS DEVIATION [QRS AXIS < -30]/LEFT ANTERIOR HEMIBLOCK ABNORMAL ECG COMPARED TO ECG 08/14/2019 20:00:21 PVC IS SEEN NO OTHER SIGNIFICANT DIFFERENCE Electronically Signed On 06-22-2022 14:35:46 CDT by Richard Craft M.D.
[2022-06-21 16:19] LABS: Basophils Absolute Auto 0.1 K/mm3 (0.0-0.1); Basophils Percent Auto 1.3 % (0.2-1.2); Eosinophils Absolute Auto 0.9 K/mm3 (0-0.3); Eosinophils Percent Auto 10.4 % (0-4.4); Hematocrit 39.1 % (42.0-52.0); Hemoglobin 12.9 g/dL (14.0-18.0); Immature Granulocyte Absolute 0.02 K/mm3 (0.00-0.031); Immature Granulocyte Percent A 0.2 % (0-0.5); Lymphocytes Absolute Auto 2.46 K/mm3 (0.9-3.2); Lymphocytes Percent Auto 29.3 % (18.3-44.2); Mean Corpuscular Hemoglobin 32.3 pg (26-34); Mean Platelet Volume 9.5 fl (7.4-10.4); Monocytes Absolute Auto 0.8 K/mm3 (0.1-0.6); Monocytes Percent Auto 9.4 % (2.6-8.5); Neutrophils Absolute Auto 4.1 K/mm3 (1.3-6.7); Neutrophils Percent Auto 49.4 % (45.5-73.1); Platelet Count Result 258 k/mm3 (150-375); Red Blood Count 3.99 M/mm3 (4.6-6.20); Red Cell Distribution Width 12.7 % (11.5-14.5); White Blood Count 8.4 K/mm3 (4.5-10.0)
[2022-06-21 16:30] LABS: Alanine Aminotransferase 26 U/L (6-50); Albumin Level 4.1 g/dL (3.5-5.1); Alkaline Phosphatase 74 U/L (38-126); Anion Gap 7 mmol/L (8-16); Aspartate Amino Transferase 26 U/L (17-59); Bilirubin,Total 0.4 mg/dL (0.2-1.3); Blood Urea Nitrogen 25 mg/dL (9-20); Calcium 8.8 mg/dL (8.4-10.2); Carbon Dioxide 28 mmol/L (22-30); Chloride 101 mmol/L (98-107); Estimated CRCL calculation 54 ml/min; Estimated Glomerular Filt Rate > 60; Glucose 144 mg/dL (65-110); Potassium 4.2 mmol/L (3.4-5.0); Prothrombin Time 13.1 Seconds (11.1-14.7); Sodium 136 mmol/L (137-145)
[2022-06-21 16:31] LABS: Partial Thromboplastin Time 34.1 SECONDS (22.3-36.8)
[2022-06-21 17:32] LABS: Appearance Urine Clear (Clear); Bilirubin Urine Negative (Negative); Blood Urine Negative (Negative); Color Urine Yellow (Yellow); Glucose Urine UA Negative (Negative); Ketones Urine Negative (Negative); Leukocyte Esterase Ur 1+ LEU/UL (Negative); Nitrate Urine Negative (Negative); Protein Urine Negative (Negative); Specific Grav Ur 1.015 (1.001-1.035)
[2022-06-21 17:36] LABS: Bacteria Urine 4+ /hpf; Mucus Urine Rare /lpf; RBC Urine 0-2 /hpf (0-2)
[2022-06-21 17:38] LABS: Add Urine Microscopic? YES
--- NOTE | 2022-06-21 20:25 | ED.GENADULT ---
HPI - General Adult General Chief complaint: Weakness Stated complaint: hip and back pain Time Seen by Provider: 06/21/22 16:30 History of Present Illness HPI narrative: 76-year-old male with history of urinary retention presented the emergency department for evaluation for a persistent urinary tract infection. Patint has had prior follow up with [facility] for prostate and urinary retention issues. Patient was started on nitrofurantoin for his urinary tract infection. states that he was started on antibiotics on Wednesday but on Wednesday he was still having some fatigue. Patient states that today he feels that his urine is improving today and it is clear with less of a foul odor. Patient reports he did have a fall last week. Related Data Home Medications Medication Instructions Recorded Confirmed fexofenadine 180 mg tablet 180 mg PO DAILY 08/14/19 05/21/22 (Allergy Relief (fexofenadine)) hydrocodone 10 mg-acetaminophen 1 tablet PO TID PRN Pain 08/14/19 05/21/22 325 mg tablet lidocaine 5 % topical patch 1 patch transdermal DAILY PRN Pain 08/14/19 05/21/22 cholecalciferol (vitamin D3) 25 25 mcg PO DAILY 07/23/20 05/21/22 mcg (1,000 unit) capsule (Vitamin D3) cyanocobalamin (vitamin B-12) 1,000 mcg PO DAILY 07/23/20 05/21/22 1,000 mcg tablet morphine See Rx Instructions .Route .COMPLEX 07/23/20 05/21/22 potassium 99 mg tablet 99 mg PO DAILY 07/23/20 05/21/22 trimethoprim 100 mg tablet 100 mg PO QAM 07/23/20 05/21/22 aspirin 81 mg tablet 81 mg PO DAILY 12/31/21 05/21/22 nitroglycerin 0.4 mg sublingual 0.4 mg sublingual Q5-10M PRN Chest 12/31/21 05/21/22 tablet Pain tamsulosin 0.4 mg capsule 0.4 mg PO HS 12/31/21 05/21/22 Allergies Allergy/AdvReac Type Severity Reaction Status Date / Time No Known Allergies Allergy Verified 05/21/22 14:45 Review of Systems Review of Systems: CONSTITUTIONAL: Denies fever, chills, or sweats. EYES: Denies visual changes, redness, or discharge. ENT: Denies rhinorrhea, congestion, sore throat, or otalgia. CARDIOVASCULAR: Denies chest pain, palpitations, or edema. RESPIRATORY: Denies cough or dyspnea. GASTROINTESTINAL: See HPI GENITOURINARY: See HPI SKIN: Denies rash or itching. MUSCULOSKELETAL: Denies back pain, joint pain, or myalgia. NEUROLOGIC: Denies headache, numbness, or weakness. [facility] Past Medical History Medical History Abnormal findings on esophagogastroduodenoscopy (EGD) 11.03.09 paula's esophagus/ path pending esophageal web bougied Acute sepsis Anxiety Arthritis, lumbar spine Barretts esophagus BPH w/o urinary obs/LUTS CAD (coronary artery disease) Carpal tunnel syndrome DDD (degenerative disc disease) Delirium due to general medical condition Depression Elevated blood pressure reading without diagnosis of hypertension Elevated troponin Esophageal web egd .03.09 bougied Esophagitis GERD (gastroesophageal reflux disease) History of angina History of heart attack Hypercholesteremia Hyperlipidemia, unspecified Hypertension Infectious encephalopathy Left cataract Nicotine dependence, cigarettes, uncomplicated Nicotine dependence, unspecified, uncomplicated Normocytic anemia Occlusion and stenosis of bilateral carotid arteries Other intervertebral disc degeneration, thoracic region Pneumonia PVD (peripheral vascular disease) Sleep apnea Urethral stricture dilated Urinary tract infection UTI (urinary tract infection) Surgical History Surgical History History of angioplasty History of appendectomy (~1975) History of laminectomy (~01/13/19) History of repair of right rotator cuff (~1998) Hx of cardiac cath with 3 stents Family History Family History Grandparent Diabetes mellitus Mother Family history of cardiovascular disease Acute myocardial infarction Father
== END 2022-06-21 21:10 | disposition home or self-care (01) ==
PROVIDERS: Emergency Medicine; Emergency Provider Emergency Medicine; PCP Family Medicine
DX: K59.00 Constipation, unspecified (principal); N39.0 Urinary tract infection, site not specified; I25.10 Atherosclerotic heart disease of native coronary artery without angina pectoris; I25.2 Old myocardial infarction; E78.5 Hyperlipidemia, unspecified; I10 Essential (primary) hypertension; I73.9 Peripheral vascular disease, unspecified; G47.30 Sleep apnea, unspecified; F41.9 Anxiety disorder, unspecified; F32.A Depression, unspecified; N40.0 Benign prostatic hyperplasia without lower urinary tract symptoms; I65.23 Occlusion and stenosis of bilateral carotid arteries; K21.9 Gastro-esophageal reflux disease without esophagitis; F17.210 Nicotine dependence, cigarettes, uncomplicated; Z79.82 Long term (current) use of aspirin; Z95.5 Presence of coronary angioplasty implant and graft; Z79.891 Long term (current) use of opiate analgesic
CPT/HCPCS: 36415; 70450; 80053; 81001; 85025; 85610; 85730; 93005; 99284

== ENCOUNTER 2022-07-13 12:35 | Outpatient (CLI) | payer MEDICARE, SELFPAY ==
--- NOTE | ~2022-07-13 | CT_ITS ---
EXAMINATION: CT lumbar spine wo con DATE: 07/13/2022 13:23 INDICATION: Chronic back pain. TECHNIQUE: Computed tomography (CT) of the lumbar spine was performed without intravenous contrast. A utomated exposure control and iterative reconstruction technique were employed. The dose-length produ ct was 1028.69 mGy-cm. COMPARISON: CT abdomen and pelvis 08/14/2019 FINDINGS: There is 14 degrees dextroscoliosis of lumbar spine. There is 6 mm anterolisthesis of L2 on L3. There is a chronic compression fracture of L4 with 2/5 loss of height. There is severely decreas ed disc height from L2-L3 through L5-S1 with endplate remodeling. There are laminectomies from L2 to L5. There is an intrathecal catheter with tip in thoracic spine. There is a fusiform aneurysm of infr arenal aorta measuring up to 3.5 cm. The following disc levels are specifically discussed: L1-L2: The disc is bulging. There is moderate bilateral facet joint osteoarthritis. There is mild rita ateral neural foraminal stenosis. There is mild central canal stenosis. L2-L3: The disc is bulging. There is severe bilateral facet joint osteoarthritis. There is moderate b ilateral neural foraminal stenosis. There is mild central canal stenosis with posterior decompression . L3-L4: The disc is bulging. There is severe bilateral facet joint osteoarthritis. There is moderate b ilateral neural foraminal stenosis. There is mild central canal stenosis with posterior decompression . L4-L5: The disc is bulging. There is severe right and moderate left facet joint osteoarthritis. There is moderate bilateral neural foraminal stenosis. There is mild central canal stenosis with posterior decompression. L5-S1: The disc is bulging. There is mild bilateral facet joint osteoarthritis. There is moderate rita ateral neural foraminal stenosis. There is mild central canal stenosis with posterior decompression. IMPRESSION: 1. Severe lumbar spondylosis. 2. Lumbar dextroscoliosis. 3. 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 Reviewed, dictated and finalized at location A.
--- NOTE | ~2022-07-13 | XR_ITS ---
XR abdomen/kub 1V 07/13/2022 14:09 INDICATION: Abdomen pain. Chronic pain. TECHNIQUE: KUB COMPARISON: None FINDINGS: Bowel gas pattern is normal. Moderate retained fecal material in the colon. There are multi ple battery packs overlying the abdomen. There is residual contrast in nondilated renal collecting sy stems. There is contrast in the bladder. Severe lumbar spondylosis with compression fractures of L4 a nd L5, likely chronic There is no evidence of free air, mass, organomegaly, ascites or obstruction. No abnormal calculi are seen. The bones appear intact. IMPRESSION: 1: Fecal impaction of the colon. Reviewed, dictated and finalized at location B.
--- NOTE | ~2022-07-13 | CT_ITS ---
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 TECHNIQUE: Computed tomographic angiography (CTA) of the chest was performed with 100 mL Omnipaque-35 0 intravenous contrast. Automated exposure control and iterative reconstruction technique were employ ed. The dose-length product was 658.61 mGy-cm. Maximum intensity projection 3D-reconstructions of the aorta and other arteries were constructed by the technologist on a separate workstation. COMPARISON: Chest CT 06/30/2021 FINDINGS: There is mild emphysema. There is chronic widespread septal thickening in the lungs with a lower lung predominance. There is a stable 5 mm nodule in right lower lobe, likely benign. There is a stable 7 mm nodule at right major fissure, likely benign. No pleural effusion. The heart size is nor mal. There are coronary artery calcifications. No pericardial effusion. Thoracic aorta is normal in c aliber. There is mild aortic atherosclerosis. There is mild bilateral gynecomastia. There are subcuta neous electronic device is in the flanks bilaterally with electrodes in cervical spine. There is left abdominal pump with intrathecal catheter with tip at T10. There is mild chronic anterior wedging of T5 and T7 vertebral bodies. There is mild lumbar spondylosis. IMPRESSION: 1. Mild atherosclerosis of thoracic aorta. No thoracic aortic aneurysm. 2. Diffuse lung disease, likely a combination of mild emphysema and mild chronic interstitial lung di sease. Reviewed, dictated and finalized at location A. IMPRESSION: 1. Mild atherosclerosis of thoracic aorta. No thoracic aortic aneurysm. 2. Diffuse lung disease, likely a combination of mild emphysema and mild chroni c interstitial lung disease.
--- NOTE | ~2022-07-13 | CT_ITS ---
EXAMINATION: CT lung screening DATE: 07/13/2022 13:24 INDICATION: Lung cancer screening examination. TECHNIQUE: Computed tomography (CT) of the chest was performed without intravenous contrast. The dose -length product was 156.62 mGy-cm. Automated exposure control and iterative reconstruction technique were employed. COMPARISON: CT dated 06/30/2021 FINDINGS: Heart size is normal. No thoracic lymphadenopathy. There is atherosclerosis of the aorta an d coronary arteries. There is a small nonobstructing left renal stone partially visualized. No signif icant pleural or pericardial abnormality. There are a few small calcified granulomas of the lungs. Th ere is emphysema. There are chronic interstitial changes peripherally, consistent with chronic inters titial lung disease. There is a 5 mm nodule in the right lower lobe, image 94. Stable 6 mm right lowe r lobe nodule, image 66. Additional smaller nodules are unchanged in both lungs allowing for differen bradley of technique. No endobronchial lesions. No pneumothorax. There are mild wedge compression deformi ties of mid thoracic vertebra. Moderate thoracic spondylosis. IMPRESSION: 1. Lung-RADS category 2: Benign appearance or behavior. Continue annual screening with noncontrast lo w-dose chest CT in 12 months. Reviewed, dictated and finalized at location B. IMPRESSION: 1. Lung-RADS category 2: Benign appearance or behavior. Continue annual screeni ng with noncontrast low-dose chest CT in 12 months.
--- NOTE | ~2022-07-13 | CT_ITS ---
EXAMINATION: CT abdomen pelvis wo con DATE: 07/13/2022 13:24 INDICATION: Urinary tract infection. TECHNIQUE: Computed tomography (CT) of the abdomen and pelvis was performed without intravenous contr ast. Automated exposure control and iterative reconstruction technique were employed. The dose-length product was 768.23 mGy-cm. COMPARISON: CT abdomen and pelvis 08/14/2019 FINDINGS: The visualized portions of the lung bases demonstrate emphysema and chronic lung disease. N o pleural effusion. The heart size is normal. There are coronary artery calcifications. No pericardia l effusion. The liver, gallbladder, spleen, pancreas, and adrenal glands are normal. Calcifications o f the krish of the kidneys are likely vascular. There is calcified atherosclerosis of the aorta and ma ny of the other arteries. There is a 3.5 cm fusiform aneurysm of infrarenal aorta. There is diffuse b ladder wall thickening. The prostate is mildly enlarged. There is diverticulosis of the colon without evidence of diverticulitis. The appendix is normal. There are no pathologically enlarged lymph nodes . There is no free intraperitoneal fluid. There are electronic devices in the subcutaneous fat in the flanks bilaterally. There is an intrathecal catheter with subcutaneous pump in the left anterior abd omen. There is severe lumbar spondylosis. There is a chronic compression fracture of L4. IMPRESSION: 1. Diffuse bladder wall thickening, which may be secondary to chronic outlet obstruction and/or cysti tis. 2. 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 Reviewed, dictated and finalized at location A. IMPRESSION: 1. Diffuse bladder wall thickening, which may be secondary to chronic outlet ob struction and/or cystitis. 2. 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
--- NOTE | ~2022-07-13 | XR_ITS ---
XR lumbar spine 6V w bending 07/13/2022 14:10 Indication: History of chronic back pain Procedure: 7 views of the lumbar spine Comparison: No prior studies for comparison. Findings: There is severe loss of disc height at all lumbar levels. There are mild chronic superior e ndplate compression deformities of L4 and L5. There is degenerative anterolisthesis at L2-3. Osteopen ia. Mild dextroscoliosis. There is residual contrast in the nondilated renal collecting systems and u reters. Large amount of retained fecal material in the colon, consistent with fecal impaction. Impression: 1: Mild chronic superior endplate compression deformities of L4 and L5. 2: Severe lumbar spondylosis with dextroscoliosis. Reviewed, dictated and finalized at location B. Impression: 1: Mild chronic superior endplate compression deformities of L4 and L5. 2: Severe lumbar spondylosis with dextroscoliosis.
== END 2022-07-13 12:36 | disposition home or self-care (01) ==
LOC: ANHIMG 12:43
PROVIDERS: PCP Internal Medicine; Visit Provider Internal Medicine
DX: N39.0 Urinary tract infection, site not specified (principal); M41.9 Scoliosis, unspecified; M54.9 Dorsalgia, unspecified; G89.29 Other chronic pain; Z87.828 Personal history of other (healed) physical injury and trauma; I70.0 Atherosclerosis of aorta; J98.4 Other disorders of lung; M47.896 Other spondylosis, lumbar region; I71.43 Infrarenal abdominal aortic aneurysm, without rupture; Z87.891 Personal history of nicotine dependence
CPT/HCPCS: 71271; 71275; 72114; 72131; 74018; 74176; Q9967

== ENCOUNTER 2022-07-22 14:00 | Outpatient (CLI) | payer MEDICARE, SELFPAY ==
--- NOTE | ~2022-07-22 | US_ITS ---
EXAMINATION: US arterial duplex UE DATE: 07/22/2022 15:10 INDICATION: Peripheral arterial disease. Atherosclerotic heart disease of [place] coronary arteries. TECHNIQUE: Multiple grayscale and Doppler ultrasound images of the upper limb arteries were obtained. COMPARISON: Chest CTA 07/13/22 FINDINGS: Peak systolic velocity is 71 cm/s right common carotid artery, 190 cm/s in right subclavian artery, 57 cm/s in distal right subclavian artery, 64 cm/s in right axillary artery, up to 86 cm/s i n the brachial arteries, 72 cm/s in right radial artery, and 70 cm/s in right ulnar artery. There is no significant stenosis in right subclavian artery on color Doppler images. Peak systolic velocity is 72 cm/s in left common carotid artery, 44 cm/s in left subclavian artery, 3 9 cm/s left axillary artery, up to 45 cm/s in the brachial arteries, 33 cm/s in radial artery, and 42 cm/s in ulnar artery. IMPRESSION: 1. Relatively decreased peak systolic velocity in left subclavian artery secondary to focal total occ lusion of proximal left subclavian artery seen by CTA. The location of the occlusion would be expecte d to cause subclavian steal. Reviewed, dictated and finalized at location A. IMPRESSION: 1. Relatively decreased peak systolic velocity in left subclavian artery second margaret to focal total occlusion of proximal left subclavian artery seen by CTA. Th e location of the occlusion would be expected to cause subclavian steal.
== END 2022-07-22 14:01 | disposition home or self-care (01) ==
PROVIDERS: PCP Internal Medicine; Visit Provider Internal Medicine
DX: I25.118 Atherosclerotic heart disease of native coronary artery with other forms of angina pectoris (principal); I73.9 Peripheral vascular disease, unspecified; I70.0 Atherosclerosis of aorta; I99.8 Other disorder of circulatory system; I72.3 Aneurysm of iliac artery; R68.89 Other general symptoms and signs; I25.10 Atherosclerotic heart disease of native coronary artery without angina pectoris; I71.20 Thoracic aortic aneurysm, without rupture, unspecified
CPT/HCPCS: 93930

== ENCOUNTER 2022-07-27 09:40 | Outpatient (CLI) | payer MEDICARE, SELFPAY ==
[2022-07-27 10:20] LABS: Urine Cotinine NEGATIVE
== END 2022-07-27 09:41 | disposition home or self-care (01) ==
LOC: ANHLAB 09:42
PROVIDERS: PCP Internal Medicine; Visit Provider Internal Medicine
DX: G89.4 Chronic pain syndrome (principal); Z87.891 Personal history of nicotine dependence
CPT/HCPCS: 80307

== ENCOUNTER 2022-09-15 17:48 | Emergency (ER) | payer MEDICARE, SELFPAY ==
[2022-09-15 17:56] VITALS: BP 126/64; PULSE 70; RESP 16; TEMP 36.3; O2SAT 98
--- NOTE | 2022-09-15 20:19 | ED.GENADULT ---
HPI - General Adult General Chief complaint: Urogenital-Male Stated complaint: UTI Time Seen by Provider: 09/15/22 19:34 History of Present Illness HPI narrative: 77-year-old male history of recent Phillips placement after a right subclavian bypass surgery, incontinence, frequent UTIs, presented with dysuria. Patient, had recent surgery for a subclavian bypass about 4 days ago where a Phillips was placed removed after the surgery. Ever since the surgery was done, he has been having burning with urination, feeling similar to his previous UTIs. He denied fevers, chills, nausea, vomiting, abdominal pain, chest pain, shortness of breath, diarrhea. Past medical history: Urinary incontinence, frequent UTIs, CAD status post stent Past surgical history: Right subclavian bypass surgery, appendectomy, back surgery Medications: Aspirin, atorvastatin Allergies: No known drug allergies Social: Denied smoking, alcohol, recreational drugs Related Data Home Medications Medication Instructions Recorded Confirmed fexofenadine 180 mg tablet 180 mg PO DAILY 08/14/19 07/27/22 (Allergy Relief (fexofenadine)) hydrocodone 10 mg-acetaminophen 1 tablet PO TID PRN Pain 08/14/19 07/27/22 325 mg tablet cholecalciferol (vitamin D3) 25 25 mcg PO DAILY 07/23/20 07/27/22 mcg (1,000 unit) capsule (Vitamin D3) cyanocobalamin (vitamin B-12) 1,000 mcg PO DAILY 07/23/20 07/27/22 1,000 mcg tablet morphine See Rx Instructions .Route .COMPLEX 07/23/20 07/27/22 potassium 99 mg tablet 99 mg PO DAILY 07/23/20 07/27/22 trimethoprim 100 mg tablet 100 mg PO QAM 07/23/20 07/27/22 aspirin 81 mg tablet 81 mg PO DAILY 12/31/21 07/27/22 nitroglycerin 0.4 mg sublingual 0.4 mg sublingual Q5-10M PRN Chest 12/31/21 07/27/22 tablet Pain vibegron 75 mg tablet (Gemtesa) 75 mg PO DAILY 07/08/22 07/27/22 pregabalin 150 mg capsule 150 mg PO BID 07/27/22 07/27/22 terbinafine HCl 250 mg tablet 250 mg PO DAILY 07/27/22 07/27/22 Allergies Allergy/AdvReac Type Severity Reaction Status Date / Time No Known Allergies Allergy Verified 07/27/22 09:27 Review of Systems Review of Systems: See [facility] Past Medical History Medical History Abnormal findings on esophagogastroduodenoscopy (EGD) .03.09 paula's esophagus/ path pending esophageal web bougied Acute sepsis Anxiety Arthritis, lumbar spine Barretts esophagus BMI 28.0-28.9,adult BMI 29.0-29.9,adult BPH w/o urinary obs/LUTS CAD (coronary artery disease) Carpal tunnel syndrome Chronic UTI DDD (degenerative disc disease) Delirium due to general medical condition Depression Dextroscoliosis Diastolic dysfunction Elevated blood pressure reading without diagnosis of hypertension Elevated troponin Encounter to establish care Esophageal web egd 07.26.20 bougied Esophagitis Follow up GERD (gastroesophageal reflux disease) History of angina History of heart attack Hypercholesteremia Hyperlipidemia, unspecified Hypertension Infectious encephalopathy Left cataract Muscle weakness Nicotine dependence, cigarettes, uncomplicated Nicotine dependence, unspecified, uncomplicated Normocytic anemia Occlusion and stenosis of bilateral carotid arteries On filler leaf cutter long drug therapy Other intervertebral disc degeneration, thoracic region Personal history of nicotine dependence Pneumonia PVD (peripheral vascular disease) Sleep apnea Spinal stenosis 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
[2022-09-15 20:40] LABS: Add Urine Microscopic? YES; Appearance Urine Slightly Cloudy (Clear); Bilirubin Urine Negative (Negative); Blood Urine Trace-Intact (Negative); Color Urine Yellow (Yellow); Glucose Urine UA Negative (Negative); Ketones Urine Trace mg/dL (Negative); Leukocyte Esterase Ur 1+ LEU/UL (Negative); Nitrate Urine Positive (Negative); Protein Urine Trace mg/dL (Negative)
[2022-09-15 21:12] LABS: Bacteria Urine Trace /hpf; Mucus Urine Rare /lpf; Squamous Epithelial Cell Urine Rare /hpf (Few); WBC Urine >75 /hpf
[2022-09-15] MEDS: CEPHALEXIN 500 MG CAPSULE PO (22:00)
== END 2022-09-15 22:45 | disposition home or self-care (01) ==
PROVIDERS: Family Medicine; Emergency Provider Emergency Medicine; PCP Internal Medicine
DX: N39.0 Urinary tract infection, site not specified (principal); F41.9 Anxiety disorder, unspecified; M19.90 Unspecified osteoarthritis, unspecified site; I25.10 Atherosclerotic heart disease of native coronary artery without angina pectoris; F32.9 Major depressive disorder, single episode, unspecified; K21.9 Gastro-esophageal reflux disease without esophagitis; I10 Essential (primary) hypertension; G47.30 Sleep apnea, unspecified; F17.210 Nicotine dependence, cigarettes, uncomplicated
CPT/HCPCS: 51702; 81001; 87077; 87086; 87186; 99283; A9270

== ENCOUNTER 2022-10-16 15:41 | Emergency (ER) | payer MEDICARE, SELFPAY ==
--- NOTE | ~2022-10-16 | XR_ITS ---
EXAMINATION: XR shoulder LT min 2V DATE: 10/16/2022 16:30 INDICATION: Left shoulder injury. TECHNIQUE: 4 views of left shoulder were obtained. COMPARISON: Chest CT 07/13/2022 FINDINGS: There is an old fracture of distal clavicle with nonunion. No acute fracture. There is mild osteoarthritis of glenohumeral joint. Acromioclavicular joint is normal. There are wires in the post erior thorax. Epidural electrodes are noted. IMPRESSION: 1. 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 2. Mild osteoarthritis of glenohumeral joint. Reviewed, dictated and finalized at location A. HER ADVISOR
--- NOTE | ~2022-10-16 | XR_ITS ---
EXAMINATION: XR knee LT min 4V DATE: 10/16/2022 16:30 INDICATION: Left knee injury. TECHNIQUE: 4 views of left knee were obtained. COMPARISON: Left knee radiographs 12/24/2021 FINDINGS: Bone alignment is normal. No fracture. Osteopenia is noted. There is mild tricompartmental osteoarthritis characterized by marginal osteophytes. No joint space narrowing. No knee joint effusio n. IMPRESSION: 1. Mild left knee osteoarthritis. Reviewed, dictated and finalized at location A. D CARE LEADER
--- NOTE | ~2022-10-16 | CT_ITS ---
EXAMINATION: CT facial bones wo con DATE: 10/16/2022 16:38 INDICATION: Fall. Head injury. TECHNIQUE: Computed tomography (CT) of the facial bones and maxillofacial region was performed withou t intravenous contrast. Automated exposure control and iterative reconstruction technique were employ ed. The dose-length product was 456.16 mGy-cm. COMPARISON: head CT 08/14/19, 06/21/22 FINDINGS: There is left periorbital soft tissue swelling. The orbits are normal. There is rightward d eviation of anterior nasal septum. The posterior nasal septum demonstrates leftward deviation superio rly and rightward deviation inferiorly. There is mild mucosal thickening in the paranasal sinuses. Th ere are fracture deformities of the nasal bones. There is moderate cervical spondylosis. IMPRESSION: 1. Age-indeterminate fracture deformities of the nasal bones. Reviewed, dictated and finalized at location A. L ENGINEER IN TRAINING
--- NOTE | ~2022-10-16 | XR_ITS ---
EXAMINATION: XR scapula LT DATE: 10/16/2022 16:30 INDICATION: Left scapular injury. TECHNIQUE: 2 views of left scapula were obtained. COMPARISON: Chest CT 07/13/2022 FINDINGS: There is an old fracture of distal left clavicle with nonunion. No acute fracture. There is mild osteoarthritis of glenohumeral joint. Epidural electrodes are noted. There are wires in the pos terior thorax. IMPRESSION: 1. Mild osteoarthritis of glenohumeral joint. Reviewed, dictated and finalized at location A. NCT HISTORY INSTRUCTOR
--- NOTE | ~2022-10-16 | CT_ITS ---
EXAMINATION: CT brain wo con DATE: 10/16/2022 16:33 INDICATION: Fall. TECHNIQUE: Computed tomography (CT) of the head was performed without intravenous contrast. The mA wa s adjusted according to patient size. Iterative reconstruction technique was employed. The dose-lengt h product was 605.33 mGy-cm. COMPARISON: Head CT 06/21/2022 FINDINGS: There are scattered areas of low attenuation in the cerebral white matter, which is within normal limits for the patient's age. There is no intracranial hemorrhage, acute infarction, or abnorm al intracranial mass lesion. There is mild mucosal thickening in the paranasal sinuses. There is left periorbital soft tissue swelling. There is a trace left mastoid effusion. IMPRESSION: 1. Normal aging brain. Reviewed, dictated and finalized at location A. ANDER POLICE RESERVES IMPRESSION: 1. Normal aging brain.
[2022-10-16 15:46] VITALS: BP 116/93; PULSE 64; RESP 16; TEMP 36.6; O2SAT 98
--- NOTE | 2022-10-16 17:26 | ED.FALL ---
HPI - Fall General Chief Complaint: Fall Stated Complaint: fall, hit head Time Seen by Provider: 10/16/22 15:46 Source: RN notes reviewed History of Present Illness HPI Narrative: Patient presents emergency department from home for a fall. Patient states he was going to eat fish and beer for lunch today when he was walking in the restaurant and there is a small lip at the door and he fell states he struck his face as well as hurt his left shoulder and his left knee states that following the fall he got up and continue to eat his fish and beer states he then went to the eyeglass store to fix his eyeglasses before coming to the emergency department for further evaluation he notes pain and swelling to the left forehead as well as pain in left shoulder and left knee he has been up and walking throughout the day denies any loss of consciousness denies any chest pain or shortness of breath abdominal pain nausea or vomiting states he has a history of chronic back pain and also had gone to his physical therapy for his back pain following his fall. Unsure of his last tetanus shot Related Data Home Medications Medication Instructions Recorded Confirmed fexofenadine 180 mg tablet 180 mg PO DAILY 08/14/19 07/27/22 (Allergy Relief (fexofenadine)) hydrocodone 10 mg-acetaminophen 1 tablet PO TID PRN Pain 08/14/19 07/27/22 325 mg tablet cholecalciferol (vitamin D3) 25 25 mcg PO DAILY 07/23/20 07/27/22 mcg (1,000 unit) capsule (Vitamin D3) cyanocobalamin (vitamin B-12) 1,000 mcg PO DAILY 07/23/20 07/27/22 1,000 mcg tablet morphine See Rx Instructions .Route .COMPLEX 07/23/20 07/27/22 potassium 99 mg tablet 99 mg PO DAILY 07/23/20 07/27/22 trimethoprim 100 mg tablet 100 mg PO QAM 07/23/20 07/27/22 aspirin 81 mg tablet 81 mg PO DAILY 12/31/21 07/27/22 nitroglycerin 0.4 mg sublingual 0.4 mg sublingual Q5-10M PRN Chest 12/31/21 07/27/22 tablet Pain vibegron 75 mg tablet (Gemtesa) 75 mg PO DAILY 07/08/22 07/27/22 pregabalin 150 mg capsule 150 mg PO BID 07/27/22 07/27/22 terbinafine HCl 250 mg tablet 250 mg PO DAILY 07/27/22 07/27/22 teriparatide 20 mcg/dose (600 20 mcg subcut DAILY 10/15/22 mcg/2.4 mL) subcutaneous pen injector (Forteo) Allergies Allergy/AdvReac Type Severity Reaction Status Date / Time No Known Allergies Allergy Verified 07/27/22 09:27 Review of Systems Review of Systems: Gen.: Denies fevers or chills Eyes: Denies eye pain or visual change ENT: Denies congestion Respiratory: Denies shortness of breath or cough CV: Denies chest pain or palpitations GI: Denies abdominal pain nausea, emesis Musculoskeletal: See HPI Neuro: Denies numbness, tingling, weakness or focal weakness Skin: Denies rash Except as documented, all other systems reviewed and negative [facility] Past Medical History Medical History Abnormal findings on esophagogastroduodenoscopy (EGD) 07.26.20 paula's esophagus/ path pending esophageal web bougied Acute sepsis Anxiety Arthritis, lumbar spine Barretts esophagus BMI 28.0-28.9,adult BMI 29.0-29.9,adult BPH w/o urinary obs/LUTS CAD (coronary artery disease) Carpal tunnel syndrome Chronic UTI DDD (degenerative disc disease) Delirium due to general medical condition Depression Dextroscoliosis Diastolic dysfunction Elevated blood pressure reading without diagnosis of hypertension Elevated troponin Encounter to establish care Esophageal web egd 07.26.20 bougied Esophagitis Follow up GERD (gastroesophageal reflux disease) History of angina History of heart attack Hypercholesteremia Hyperlipidemia, unspecified Hypertension Infectious encephalopathy Left cataract Muscle weakness Nicotine dependence, cigarettes, uncomplicated Nicotine dependence, unspecified, uncomplicated Normocytic anemia Occlusion and stenosis of bilateral carotid arteries On fdc drug therapy Other intervertebral disc degeneration, thoracic region Per
== END 2022-10-16 18:24 | disposition home or self-care (01) ==
PROVIDERS: Emergency Provider Emergency Medicine; PCP Internal Medicine
DX: S80.02XA Contusion of left knee, initial encounter (principal); S40.012A Contusion of left shoulder, initial encounter; S05.12XA Contusion of eyeball and orbital tissues, left eye, initial encounter; S60.512A Abrasion of left hand, initial encounter; I25.10 Atherosclerotic heart disease of native coronary artery without angina pectoris; I25.2 Old myocardial infarction; E78.00 Pure hypercholesterolemia, unspecified; I10 Essential (primary) hypertension; I65.23 Occlusion and stenosis of bilateral carotid arteries; I73.9 Peripheral vascular disease, unspecified; N40.0 Benign prostatic hyperplasia without lower urinary tract symptoms; K22.70 Barrett's esophagus without dysplasia; K21.9 Gastro-esophageal reflux disease without esophagitis; G47.30 Sleep apnea, unspecified; E53.1 Pyridoxine deficiency; E55.9 Vitamin D deficiency, unspecified; F17.210 Nicotine dependence, cigarettes, uncomplicated; Z95.5 Presence of coronary angioplasty implant and graft; Z79.82 Long term (current) use of aspirin; Z87.440 Personal history of urinary (tract) infections; M17.12 Unilateral primary osteoarthritis, left knee; M19.012 Primary osteoarthritis, left shoulder; W18.09XA Striking against other object with subsequent fall, initial encounter
CPT/HCPCS: 70450; 70486; 73010; 73030; 73564; 99284

== ENCOUNTER 2022-11-24 11:54 | Outpatient (CLI) | payer MEDICARE, SELFPAY ==
--- NOTE | ~2022-11-24 | XR_ITS ---
XR heel RT min 2V DATE: 11/24/2022 12:29 INDICATION: Wound from popped blister nonhealing TECHNIQUE: Axial and lateral views COMPARISON: None FINDINGS: No subcutaneous emphysema. Mild posterior calcaneal enthesopathy. No fracture or bone destr uction of the calcaneus. IMPRESSION: Mild posterior calcaneal enthesopathy Reviewed, dictated and finalized at location L. L EXPERT
== END 2022-11-24 11:55 | disposition home or self-care (01) ==
PROVIDERS: PCP Internal Medicine; Visit Provider Internal Medicine
DX: M79.673 Pain in unspecified foot (principal); S91.309A Unspecified open wound, unspecified foot, initial encounter; X58.XXXA Exposure to other specified factors, initial encounter; M77.31 Calcaneal spur, right foot
CPT/HCPCS: 73650

== ENCOUNTER 2022-12-15 11:00 | Outpatient (RCR) | payer MEDICARE, SELFPAY ==
--- NOTE | 2022-09-30 11:35 | PTOPEVAL1 ---
Assessment and note entered by Sujata Barros DPT Evaluation Information Assessment Status Evaluation Subjective Information Pt reports he is having trouble walking, stooped over for awhile . Multiple back surgeries, most recently in 2020. Has been referred for a total back reconstruction, has meeting Wednesday to discuss the options. Implanted TENS unit. Patient has fallen several times, had surgery for subclavial artery occlusion and surgery on September 10. Related the occlusion to the falls. Has been diagnosed with stenosis as well. Difficulty getting up and down from a chair. Pt has a morphine pump, reports back pain at times. reports they have been weaning the morphine dose in order to do surgery. Highest back pain 8-9/10 and lowest 0/10. Pain increases significantly with walking, also reports fatigue. Diagnosed with covid and UTI end of August. Patient goal: build up muscles, get out of a chair easier. Dresses and bathes independently, not cooking or cleaning currently. Patient and his wfie report no restrictions per MD right now. Has several walkers , arrives to therapy with a cane. Reported Pain Level Pain Score 2: Self Report Assessment PT Clinical Summary The patient is presenting to skilled therapy with a history of falls, back pain and multiple back surgeries, and a recent surgery for subclavial artery occlusion. He presents with decreased strength and endurance, flexibility impairments, decreased balance and gait impairments impacting his ability to do household walking and his safety with mobility. He will benefit from therapy to address these impairments and improve household navigation and decrease fall risk. Plan of Care Interventions Gait Training,Hot Pack/Cold Pack,Manual Therapy, Neuro Re-education,Patient/Caregiver Education, Therapeutic Activities,Therapeutic Exercise,Self- Care/Home Management PT Services Indicated Yes Treatment Frequency and 2 times a week for 6weeks Duration These treatments will address the objective and functional deficits as defined above. The patient will be advanced safely and appropriately in order for the patient to progress towards his/her prior level of function. Additional exercises will be introduced and as well as a comprehensive home exercise program upon discharge, if needed, ?to ensure carryover of functional gains achieved in the clinic. This treatment plan has been reviewed and agreement upon by the patient.
--- NOTE | 2022-09-30 11:53 | OTOPDC ---
Assessment and note entered by Janett Reyna OTR/Estrella Evaluation Information Assessment Status Evaluation Assessment Status Evaluation Diagnosis Subclavian Steal syndrome L UE Subjective Information Patient presents to Outpatient OT for Subclavian Steal Syndrome which he had surgery to correct on September 10, 2022. Patient does not report any changes with functional use of L UE. Patient reports had a previous injury to L UE about 15 years ago which affected use of L digit 2 ROM. Patient reports chronic pain in L shoulder for the past 7 years Reported Pain Level Pain Score 0: Self Report Pain Score 2: Self Report Assessment OT Clinical Summary Gregory Reid is a 77 year old male who presents to Outpatient OT following a surgery to correct a subclavian steal syndrome of L UE. Patient has a history of previous L UE injuries from ~15 year prior which has overall affected strength of L UE. Patient reports functional use of L UE has not changed since surgery or diagnosis of subclavian steal syndrome. Patient demonstrated decreased strength/coordination in L UE compared to R UE, although patient reports this is his baseline function. Patient was issued a theraputty and theraband HEP for UE strengthening, good return demo and verbalization of understanding from patient and patient's . Patient is to be discharged from skilled OT at this time, independent with HEP. Patient and patient's agreeable to plan. Thank you for the refferal. Plan of Care OT Services Indicated No
--- NOTE | 2022-10-28 15:10 | PTOPPROG ---
Assessment and note entered by Sujata Barros DPT Evaluation Information Assessment Status Progress Subjective Information Pt's reports she is noticing some improvements with therapy, but other times has more trouble getting around but thinks it may be medication related. One fall since starting therapy. Has to go on a medicine for 3 months then will be getting a neck surgery. Then likely will be getting a back reconstruction sometime this year. reports he has been able to walk longer distances when using his walker. Pt reports highest back pain in the last week 6-03/29 and lowest 5/10. States it is easier for him to stand up with his walker. Assessment PT Clinical Summary The patient has made some progress in therapy. He reports decreased back pain and improvements with his ability to stand. He demonstrates improved distance on the 2 minute walk test, improved time on 5 times sit to stand, and improved hamstring flexibility. He continues to display overall weakness and postural impairments and will highly benefit from further therapy to improve functional mobility and decrease fall risk. Plan of Care Interventions Gait Training,Hot Pack/Cold Pack,Manual Therapy, Neuro Re-education,Patient/Caregiver Education, Therapeutic Activities,Therapeutic Exercise,Self- Care/Home Management PT Services Indicated Yes Treatment Frequency and 2 times a week for 4 weeks starting after patients Duration return from [place] These treatments will address the objective and functional deficits as defined above. The patient will be advanced safely and appropriately in order for the patient to progress towards his/her prior level of function. Additional exercises will be introduced and as well as a comprehensive home exercise program upon discharge, if needed, ?to ensure carryover of functional gains achieved in the clinic. This treatment plan has been reviewed and agreement upon by the patient.
--- NOTE | 2022-11-24 14:01 | PCPTNOTE ---
Patient no showed this date. Patient unaware of appointed this date and states he will make his next appointment.
--- NOTE | 2022-12-21 13:13 | PCPTNOTE ---
Patient's called to cancel, Franklin fell and fractured his femur and had surgery over the weekend. Will be going to inpatient therapy.
--- NOTE | 2022-12-23 08:42 | PTOPDC ---
Assessment and note entered by Sujata Barros DPT Evaluation Information Assessment Status Discharge - Pt Not Present Subjective Information Assessment PT Clinical Summary Patient is being discharged from outpatient therapy. He fell over the weekend and sustained a femur fracture and is now an inpatient at [facility]. Plan of Care PT Services Indicated
== END 2022-12-23 10:22 | disposition home or self-care (01) ==
LOC: ANHGOSHPT 11:00
PROVIDERS: PCP Internal Medicine; Visit Provider Internal Medicine
DX: G45.8 Other transient cerebral ischemic attacks and related syndromes (principal)
CPT/HCPCS: 97110; 97112; 97116; 97140; 97163; 97165; 97530; 99199

== ENCOUNTER 2022-12-18 19:12 | Inpatient (IN) | payer MEDICARE, SELFPAY ==
[2022-12-18] VITALS (11 sets, daily range): BP systolic 127–157; BP diastolic 60–81; PULSE 68–94; RESP 13–20; TEMP 36.3–36.6; O2SAT 95–100; BMI 21.5
--- NOTE | ~2022-12-18 | CT_ITS ---
EXAMINATION: CT brain wo con INDICATION: Head injury COMPARISON: 10/16/2022 TECHNIQUE: Standard unenhanced head CT. The dose-length product (DLP) was 605.33 mGy-cm. The mA was a djusted according to patient size. Iterative reconstruction technique was employed. FINDINGS: There is no acute intraparenchymal hemorrhage. No evidence of mass lesion. No evidence of a cute infarction. There is moderate periventricular and subcortical hypodensity probably related to sm all vessel ischemic disease. There is moderate prominence of the sulci and ventricles related to cere bral atrophy. Intracranial calcified cerebral atherosclerosis is noted. There are no extra-axial benito ections. There is no mass effect or midline shift. The orbits and soft tissues are unremarkable. The visualized sinuses and mastoid air cells are well aerated. IMPRESSION: 1. No acute intracranial abnormality. 2. Age related findings. Reviewed, dictated and finalized at location F.
--- NOTE | ~2022-12-18 | CT_ITS ---
EXAMINATION: CT cervical spine wo con DATE: 12/18/2022 19:50 INDICATION: Neck pain TECHNIQUE: Computed tomography (CT) of the cervical spine was performed without intravenous contrast. The dose-length product (DLP) was 429.75 mGy-cm. Automated exposure control and iterative reconstruc tion technique were employed. COMPARISON: 09/17/2006 FINDINGS: Bone alignment is normal. There is no fracture. There is moderate loss of intervertebral di sc space height at C5-6. The vertebral body heights and alignment are maintained. The odontoid proces s is intact. Neurostimulator leads project in the central spinal canal at C5, C6, and C7. The prevert ebral soft tissues are normal. There is moderate multilevel facet and uncovertebral joint osteoarthri tis. There is fibrous union of the posterior C1 ring. IMPRESSION: 1. Moderate cervical spondylosis without acute osseous abnormality. Reviewed, dictated and finalized at location F.
--- NOTE | ~2022-12-18 | XR_ITS ---
EXAMINATION: XR surgery orthopedic DATE: 12/19/2022 14:15 CDT INDICATION: LT IT NAIL . TECHNIQUE: 7 fluoroscopic images of the left hip were obtained during left intertrochanteric nail darlene cement performed by the surgeon. I was not present in the operating room. Fluoroscopy exposure time w as seconds. Air Kerma 35.467 mGy. DAP 0.7031 mGym2. COMPARISON: X-ray left hip, 12/18/2022 FINDINGS: Multiple fluoroscopic images demonstrate intertrochanteric nail placement in the left hip, bridging a n intertrochanteric fracture in near-anatomic alignment. IMPRESSION: Fluoroscopic documentation of left intertrochanteric nail placement. Please refer to the operative no te for complete procedural details . Reviewed, dictated and finalized at location K. IMPRESSION: Fluoroscopic documentation of left intertrochanteric nail placement. Please ref er to the operative note for complete procedural details .
--- NOTE | ~2022-12-18 | XR_ITS ---
EXAMINATION: XR hip LT 2V w AP pelvis INDICATION: Left hip pain, initial encounter TECHNIQUE: AP view the pelvis and two views of the left hip are obtained. COMPARISON: 08/29/2021 FINDINGS: There is an acute, traumatic, closed, intertrochanteric fracture of the left femur. The fem oral head is well-seated in the acetabulum. The lesser trochanter appears to exist as a separate frac ture fragment. No additional acute fracture is identified. There is severe lumbar spondylosis. A supr apubic catheter is noted. IMPRESSION: 1. Acute intertrochanteric fracture of the left femur. Reviewed, dictated and finalized at location F.
--- NOTE | ~2022-12-18 | XR_ITS ---
EXAMINATION: XR chest 1V INDICATION: Pain after fall TECHNIQUE: Frontal view of the chest is obtained. COMPARISON: 08/14/2019 FINDINGS: The lungs are free of acute opacities. No pleural effusion or pneumothorax. Multiple neuros timulator wires project over the thorax. The cardiomediastinal silhouette is normal. IMPRESSION: 1. No acute cardiopulmonary abnormality. Reviewed, dictated and finalized at location F.
--- NOTE | 2022-12-18 19:16 | ECG_ITS ---
Measurements Intervals [place] Rate: 73 P: 49 NC: 151 QRS: -57 QRSD: 132 T: 81 QT: 395 QTc: 436 Interpretive Statements SINUS RHYTHM RIGHT BUNDLE BRANCH BLOCK LEFT ANTERIOR FASCICULAR BLOCK BASELINE ARTIFACT- I, II, III, AVR, AVL, AVF, V3-V5 ABNORMAL ECG COMPARED TO ECG 06/21/2022 16:16:00 RIGHT BUNDLE BRANCH BLOCK NOW PRESENT Electronically Signed On 12-18-2022 22:01:54 CDT by Mulugeta Zayas D.O.
[2022-12-18 19:36] LABS: Basophils Absolute Auto 0.1 K/mm3 (0.0-0.1); Basophils Percent Auto 0.4 % (0.2-1.2); Eosinophils Absolute Auto 0.1 K/mm3 (0-0.3); Eosinophils Percent Auto 0.5 % (0-4.4); Hematocrit 38.6 % (42.0-52.0); Hemoglobin 12.8 g/dL (14.0-18.0); Immature Granulocyte Absolute 0.04 K/mm3 (0.00-0.031); Immature Granulocyte Percent A 0.3 % (0-0.5); Lymphocytes Absolute Auto 1.26 K/mm3 (0.9-3.2); Lymphocytes Percent Auto 9.1 % (18.3-44.2); Mean Corpuscular HGB Conc 33.2 g/dl (32-36); Mean Corpuscular Hemoglobin 31.4 pg (26-34); Mean Corpuscular Volume 94.8 fl (80-100); Mean Platelet Volume 9.4 fl (7.4-10.4); Monocytes Percent Auto 7.3 % (2.6-8.5); Neutrophils Absolute Auto 11.4 K/mm3 (1.3-6.7); Neutrophils Percent Auto 82.4 % (45.5-73.1); Platelet Count Result 280 k/mm3 (150-375); Red Blood Count 4.07 M/mm3 (4.6-6.20); Red Cell Distribution Width 13.8 % (11.5-14.5); White Blood Count 13.8 K/mm3 (4.5-10.0)
[2022-12-18 19:46] LABS: INR 1.1; Prothrombin Time 14.2 Seconds (11.1-14.7)
[2022-12-18 19:47] LABS: Alanine Aminotransferase 35 U/L (6-50); Albumin Level 4.2 g/dL (3.5-5.1); Alkaline Phosphatase 77 U/L (38-126); Anion Gap 6 mmol/L (8-16); Aspartate Amino Transferase 35 U/L (17-59); Bilirubin,Total 0.5 mg/dL (0.2-1.3); Blood Urea Nitrogen 29 mg/dL (9-20); Calcium 9.7 mg/dL (8.4-10.2); Carbon Dioxide 30 mmol/L (22-30); Chloride 99 mmol/L (98-107); Estimated CRCL calculation 85 ml/min; Estimated Glomerular Filt Rate > 60; Glucose 118 mg/dL (65-110); Partial Thromboplastin Time 29.4 SECONDS (22.3-36.8); Potassium 4.1 mmol/L (3.4-5.0); Sodium 135 mmol/L (137-145)
[2022-12-18 19:51] LABS: Appearance Urine Cloudy (Clear); Bacteria Urine 4+ /hpf; Bilirubin Urine 1+ (Negative); Blood Urine Negative (Negative); Color Urine Dark Yellow (Yellow); Glucose Urine UA Negative (Negative); Ketones Urine Trace mg/dL (Negative); Leukocyte Esterase Ur 3+ LEU/UL (Negative); Need Manual Microscopic Reviewed; Nitrate Urine Positive (Negative); Non Pathogenic Casts 0-2; Protein Urine 1+ mg/dL (Negative); Specific Grav Ur 1.024 (1.001-1.035); Squamous Epithelial Cell Urine None seen /hpf (Few); WBC Urine 51-100 /hpf; pH Urine 5.5 (5.0-9.0)
[2022-12-18 19:52] LABS: Add Urine Microscopic? YES
--- NOTE | 2022-12-18 20:12 | ED.GENADULT ---
HPI - General Adult General Chief complaint: Extremity Injury, Lower Stated complaint: fall, hip pain Source: RN notes reviewed History of Present Illness HPI narrative: Patient presents emergency department from home via EMS for left hip pain. Patient states he was going outside and tripped over his feet and fell landing on his left side at that time the patient was laying on the ground was unable to get up and neighbors came over and help carry him into the house. Patient bit in the house for an hour when his returned home and patient was unable to get up and called EMS. Patient was noted to have deformity to his left hip for further evaluation. Patient is mildly slow to respond but does not believe that he struck his head he does get frequent UTIs per the and is slower to respond when he has UTIs he denies any fevers or chills chest pain shortness of breath or any other symptoms. He does have a wound on his right heel that he is currently being treated for Related Data Home Medications Medication Instructions Recorded Confirmed fexofenadine 180 mg tablet 180 mg PO DAILY 08/14/19 11/24/22 (Allergy Relief (fexofenadine)) hydrocodone 10 mg-acetaminophen 1 tablet PO TID PRN Pain 08/14/19 11/24/22 325 mg tablet cholecalciferol (vitamin D3) 25 25 mcg PO DAILY 07/23/20 11/24/22 mcg (1,000 unit) capsule (Vitamin D3) cyanocobalamin (vitamin B-12) 1,000 mcg PO DAILY 07/23/20 11/24/22 1,000 mcg tablet morphine See Rx Instructions .Route .COMPLEX 07/23/20 11/24/22 potassium 99 mg tablet 99 mg PO DAILY 07/23/20 11/24/22 trimethoprim 100 mg tablet 100 mg PO QAM 07/23/20 11/24/22 aspirin 81 mg tablet 81 mg PO DAILY 12/31/21 11/24/22 nitroglycerin 0.4 mg sublingual 0.4 mg sublingual Q5-10M PRN Chest 12/31/21 11/24/22 tablet Pain vibegron 75 mg tablet (Gemtesa) 75 mg PO DAILY 07/08/22 11/24/22 terbinafine HCl 250 mg tablet 250 mg PO DAILY 07/27/22 11/24/22 Allergies Allergy/AdvReac Type Severity Reaction Status Date / Time No Known Allergies Allergy Verified 10/29/22 09:43 Review of Systems Review of Systems: Gen.: Denies fevers or chills ENT: Denies congestion Respiratory: Denies shortness of breath or cough CV: Denies chest pain or palpitations GI: Denies abdominal pain nausea, emesis or diarrhea Musculoskeletal: see HPI Neuro: Denies numbness, tingling, weakness or focal weakness Skin: Denies rash Except as documented, all other systems reviewed and negative [facility] Past Medical History Medical History Abnormal findings on esophagogastroduodenoscopy (EGD) 11.03.09 paula's esophagus/ path pending esophageal web bougied Acute sepsis Anxiety Arthritis, lumbar spine Barretts esophagus BMI 24.0-24.9, adult BMI 28.0-28.9,adult BMI 29.0-29.9,adult BPH w/o urinary obs/LUTS CAD (coronary artery disease) Carpal tunnel syndrome Chronic UTI DDD (degenerative disc disease) Delirium due to general medical condition Depression Dextroscoliosis Diastolic dysfunction Elevated blood pressure reading without diagnosis of hypertension Elevated troponin Encounter to establish care Esophageal web egd .03.09 bougied Esophagitis Follow up GERD (gastroesophageal reflux disease) Heel pain History of angina History of heart attack Hypercholesteremia Hyperlipidemia, unspecified Hypertension Infectious encephalopathy Left cataract Muscle weakness Nicotine dependence, cigarettes, uncomplicated Nicotine dependence, unspecified, uncomplicated Normocytic anemia Occlusion and stenosis of bilateral carotid arteries On rn long term care drug therapy Open wound of right heel Other intervertebral disc degeneration, thoracic region Personal history of nicotine dependence Pneumonia PVD (peripheral vascular disease) Sleep apnea Spinal stenosis 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
[2022-12-18] MEDS: MORPHINE SULFATE (*CRX) 2 MG/ML INJ IV PUSH ×2 (20:20→21:43)
[2022-12-18] MEDS: SODIUM CHLORIDE 0.9% IV 1,000 ML 100 ML IV CONT (21:43)
[2022-12-19] VITALS (10 sets, daily range): BP systolic 113–174; BP diastolic 64–95; PULSE 71–102; RESP 11–20; TEMP 36.2–37.1; O2SAT 97–100
--- NOTE | 2022-12-19 00:06 | PC.NURSE ---
This patient, Gregory Scherer, was admitted to 3 Medical Room 340-01. Patient/family oriented to hospital policies and general routines including ID bracelet, bed and alarms, visiting hours, pain management, procedures, bathroom and other care routines, personal items, smoking policy, room service/diet, and visiting hours. Information on how to activate the Rapid Response Team has been discussed. Patient/Family are encouraged to report perceived risks to care and to ask questions if they do not understand what they are told or what they should do. Pt unsure regarding some of his medical history call placed to and message left for return call.
[2022-12-19 06:16] LABS: Basophils Absolute Auto 0.1 K/mm3 (0.0-0.1); Basophils Percent Auto 0.5 % (0.2-1.2); Eosinophils Absolute Auto 0.1 K/mm3 (0-0.3); Eosinophils Percent Auto 1.1 % (0-4.4); Hematocrit 37.1 % (42.0-52.0); Hemoglobin 12.3 g/dL (14.0-18.0); Immature Granulocyte Absolute 0.03 K/mm3 (0.00-0.031); Immature Granulocyte Percent A 0.3 % (0-0.5); Lymphocytes Absolute Auto 2.47 K/mm3 (0.9-3.2); Lymphocytes Percent Auto 21.3 % (18.3-44.2); Mean Corpuscular HGB Conc 33.2 g/dl (32-36); Mean Corpuscular Hemoglobin 31.5 pg (26-34); Mean Corpuscular Volume 95.1 fl (80-100); Mean Platelet Volume 9.2 fl (7.4-10.4); Monocytes Absolute Auto 1.2 K/mm3 (0.1-0.6); Monocytes Percent Auto 10.5 % (2.6-8.5); Neutrophils Absolute Auto 7.7 K/mm3 (1.3-6.7); Neutrophils Percent Auto 66.3 % (45.5-73.1); Platelet Count Result 259 k/mm3 (150-375); Red Cell Distribution Width 13.7 % (11.5-14.5); White Blood Count 11.6 K/mm3 (4.5-10.0)
[2022-12-19 06:29] LABS: Alanine Aminotransferase 34 U/L (6-50); Albumin Level 4.1 g/dL (3.5-5.1); Alkaline Phosphatase 68 U/L (38-126); Anion Gap 5 mmol/L (8-16); Aspartate Amino Transferase 34 U/L (17-59); Bilirubin,Total 0.6 mg/dL (0.2-1.3); Blood Urea Nitrogen 24 mg/dL (9-20); Calcium 9.6 mg/dL (8.4-10.2); Carbon Dioxide 33 mmol/L (22-30); Chloride 99 mmol/L (98-107); Estimated CRCL calculation 79 ml/min; Estimated Glomerular Filt Rate > 60; Glucose 110 mg/dL (65-110); Potassium 4.2 mmol/L (3.4-5.0); Sodium 137 mmol/L (137-145)
--- NOTE | 2022-12-19 06:59 | WPDANESEPP ---
Anes - Eval Pre Procedure Procedure: Operation Date: 12/19/22 09:00 Proposed Procedures p Left Intertrochanteric Nail - Jareth Simmons MD Date/Time: 12/19/22 06:59 Pre Op Diagnosis: left hip fracture uti Patient Data Age: 77 Gender: M Height: 1.83 m Weight: 72 kg Last Vital Signs Temp 97.2 F L 12/19/22 04:25 Pulse 77 12/19/22 04:25 Resp 16 12/19/22 04:25 BP 143/69 H 12/19/22 04:25 Pulse Ox 97 12/19/22 04:25 O2 Del Method Room Air 12/19/22 00:01 Allergies Allergy/AdvReac Type Severity Reaction Status Date / Time No Known Allergies Allergy Verified 10/29/22 09:43 Home Medications Medication Instructions Recorded Confirmed Type fexofenadine 180 mg tablet 180 mg PO DAILY 08/14/19 11/24/22 History (Allergy Relief (fexofenadine)) hydrocodone 10 mg-acetaminophen 1 tablet PO TID PRN Pain 08/14/19 11/24/22 History 325 mg tablet cholecalciferol (vitamin D3) 25 25 mcg PO DAILY 07/23/20 11/24/22 History mcg (1,000 unit) capsule (Vitamin D3) cyanocobalamin (vitamin B-12) 1,000 mcg PO DAILY 07/23/20 11/24/22 History 1,000 mcg tablet morphine See Rx Instructions .Route .COMPLEX 07/23/20 11/24/22 History potassium 99 mg tablet 99 mg PO DAILY 07/23/20 11/24/22 History trimethoprim 100 mg tablet 100 mg PO QAM 07/23/20 11/24/22 History aspirin 81 mg tablet 81 mg PO DAILY 12/31/21 11/24/22 History nitroglycerin 0.4 mg sublingual 0.4 mg sublingual Q5-10M PRN Chest 12/31/21 11/24/22 History tablet Pain duloxetine 20 mg capsule,delayed See Rx Instructions .Route 05/21/22 11/24/22 Rx release .COMPLEX #180 caps vibegron 75 mg tablet (Gemtesa) 75 mg PO DAILY 07/08/22 11/24/22 History pantoprazole 40 mg tablet,delayed 40 mg PO BID #180 tabs 07/27/22 11/24/22 Rx release terbinafine HCl 250 mg tablet 250 mg PO DAILY 07/27/22 11/24/22 History atorvastatin 20 mg tablet See Rx Instructions .Route 08/14/22 11/24/22 Rx .COMPLEX #90 tabs pen needle, diabetic 31 gauge x #50 ea 10/26/22 11/24/22 Rx 12/03 (Comfort EZ Pen [place]) gabapentin 100 mg capsule 200 mg PO TID #180 caps 10/29/22 11/24/22 Rx tizanidine 2 mg capsule 2 mg PO BID PRN muscle spasticity 11/24/22 11/24/22 Rx #60 caps diclofenac sodium 75 mg See Rx Instructions .Route 12/03/22 Rx tablet,delayed release .COMPLEX #180 tabs teriparatide 20 mcg/dose (600 See Rx Instructions .Route 12/18/22 Rx mcg/2.4 mL) subcutaneous pen .COMPLEX #2.4 mL injector (TimeLyneseAarki) Laboratory Tests 12/18/22 12/18/22 12/18/22 19:24 19:24 19:24 WBC 13.8 K/mm3 H K/mm3 (4.5-10.0) RBC 4.07 M/mm3 L M/mm3 (4.6-6.20) Hgb 12.8 g/dL L g/dL (14.0-18.0) Hct 38.6 % L % (42.0-52.0) MCV 94.8 fl fl (80-100) MCH 31.4 pg pg (26-34) MCHC 33.2 g/dl g/dl (32-36) RDW 13.8 % % (11.5-14.5) Plt Count 280 k/mm3 k/mm3 (150-375) MPV 9.4 fl fl (7.4-10.4) Immature Gran % (Auto) 0.3 % % (0-0.5) Neut % (Auto) 82.4 % H % (45.5-73.1) Lymph % (Auto) 9.1 % L % (18.3-44.2) [place] % (Auto) 7.3 % % (2.6-8.5) Eos % (Auto) 0.5 % % (0-4.4) Baso % (Auto) 0.4 % % (0.2-1.2) Lymph # (Auto) 1.26 K/mm3 K/mm3 (0.9-3.2) [place] # (Auto) 1.0 K/mm3 H K/mm3 (0.1-0.6) Eos # (Auto) 0.1 K/mm3 K/mm3 (0-0.3) Baso # (Auto) 0.1 K/mm3 K/mm3 (0.0-0.1) Abs Immat Gran (auto) 0.04 K/mm3 H K/mm3 (0.00-0.031) Absolute Neuts (auto) 11.4 K/mm3 H K/mm3 (1.3-6.7) Absolute Nucleated RBC 0.0 K/mm3 K/mm3 (0.0-0.012) Nucleated RBC % 0.0 % % (0.0-0.2) PT 14.2 Seconds Seconds (11.1-14.7) INR 1.1 APTT 29.4 SECONDS SECONDS (22.3-36.8) Sodium 135 mmol/L L mmol/L (137-145) Potassium 4.1 mmol/L mmol/L (3.4-5.0) Chloride 99 mmol/L mmol/L (98-107) Carbon
--- NOTE | 2022-12-19 07:21 | PC.NURSE ---
Spoke with Dr. Simmons and he would like the hospitilast to see pt as soon as possible prior to OR and would also like cardiology consult for clearance also. Spoke with Rebecca and Dr. Travis regarding seeing pt.
--- NOTE | 2022-12-19 08:50 | PM.IMHP ---
H&P: HPI History of Present Illness Date/Time: 12/19/22 08:50 Chief Complaint: 12/19/2022 Narrative: date of service: 12/19/2022 Gregory Scherer is a 77-year-old male with an extensive medical history to include chronic back pain with history of laminectomy and active morphine pain pump and spinal cord stimulator implant, peripheral vascular disease and chronic right foot wound established with podiatry and vascular surgery with questionable reports of bone infection currently on oral antibiotics for 1 month, scheduled to see ID in 2 weeks, coronary artery disease s/p angioplasty and cardiac stents, chronic UTIs, tobacco abuse, hypertension, hyperlipidemia, subclavian steal syndrome s/p subclavian bypass, and suspected dementia followed by memory care but not formally diagnosed, and multiple other medical problems who presented to the emergency department on 12/18/2022 with complaints of left hip pain. On presentation to the ED, the patient's vital signs were stable, WBC 13.8, additional laboratory workup unremarkable, UA slightly abnormal with positive nitrates and 3+ leuk esterase, head CT showed no acute findings, cervical spine CT showed moderate cervical spondylosis, CXR with no acute findings, and hip/pelvis x-ray showed acute intertrochanteric fracture of the left femur. On my evaluation of the patient, when asked what brought him into the hospital he replies I don't know. I then asked him if he fell and he said he thought so. I asked him if he lost his balance or felt dizzy and he said I think I lost my balance. He endorses 10/10 pain but when asked to point to where he is having pain he had to stop to think. His then asked him where he was having pain and he stated he did not know. At this point his stepped in to provide the remaining history. She stated that she was not home at the time and the patient went outside using his cane instead of his walker. She states that he has been wearing slip-on shoes due to his foot wound and she believes that his shoe caught on the sidewalk or slid off of him and he fell onto the sidewalk. His neighbors witnessed the event and were able to bring him inside and put him in a recliner. When the got home shortly after she was not able to assist him to get out of the recliner at which time she called EMS to bring the patient in for evaluation. She states that he became confused upon arrival to the hospital when he was found to have a urinary tract infection. She states that this is quite typical for him to be confused this way with a UTI and it sounds that there are some chronic issues with confusion and the patient has undiagnosed dementia. She states the patient has not complained of any dysuria, hematuria, urgency, or frequency over the past several days. She states that he does have occasional episodes of incontinence and lately has been reluctant to leave the house due to concerns for incontinence. He is established with Urology and being managed for treatment of chronic UTIs with daily trimethoprim therapy. His is quite frustrated that his right foot wound has not been wrapped properly. She states that this wound requires a compressive dressing per direction of his vascular surgeon, Dr. Aragon. the patient has been admitted to the hospitalist service and will be seen in consultation by Orthopedic surgery and Cardiology. Review of Systems Review of Systems: ROS unobtainable: Yes unobtainable due to mental status PMFSH Past Medical History Medical History Abnormal findings on esophagogastroduodenoscopy (EGD) 11.6.20 paula's esophagus/ path pending esophageal web bougied Acute sepsis Anxiety Arthritis, lumbar spine Barretts esophagus BPH w/o urinary obs/LUTS CAD (coronary artery disease) Carpal tunnel syndrome Chronic back pain with active pain pump Chronic UTI DDD (degenerative disc disease) Delirium due t
--- NOTE | 2022-12-19 09:24 | PM.CNCAR ---
Assessment and Plan Assessment and plan (1) Preop cardiovascular exam: Code(s): Z01.810 - Encounter for preprocedural cardiovascular examination Status: Acute Assessment and Plan: 77-year-old male with CAD, history of ME in the remote ME in 2007, status post PTCA/stenting of RCA, and subsequent PTCA stenting of LAD-intervention report not available; hypertension, dyslipidemia, LILO intolerant to CPAP, Martin's esophagus. Patient admitted to the hospital after he had a fall, found to have Acute intertrochanteric fracture of the left femur. Patient is anticipated to undergo orthopedic surgery. Patient has known CAD, history of ME, and remote PCI/stenting. At present, he does not have any active cardiac ischemic symptoms. EKG does not show any acute ST segment abnormality. Patient recently had left subclavian vascular surgery, and apparently did reasonably well without any major adverse cardiovascular events. Based on patient's current clinical status, he would be at an intermediate but acceptable risk for orthopedic surgery for any major adverse cardiovascular events. Continue aspirin, statin. (2) CAD (coronary artery disease): Code(s): I25.10 - Atherosclerotic heart disease of [place] coronary artery without angina pectoris Status: Acute Assessment and Plan: Known CAD, history of PCI/stenting. No active ischemic symptoms. Continue aspirin, statin. (3) Aortic stenosis: Code(s): I35.0 - Nonrheumatic aortic (valve) stenosis Status: Acute Assessment and Plan: Outpatient clinical and echocardiographic surveillance for progression of aortic stenosis. History of Present Illness History of Present Illness Consult date/time: 12/19/22 09:24 Requesting physician: Jareth Simmons MD Consult reason: pre-op evaluation Reason For Visit: left hip fracture uti Narrative: DATE OF CONSULT: 12/19/2022 REASON FOR CONSULT: Preop evaluation REQUESTING PHYSICIAN:MD Iris CHIEF COMPLAINT: Fall, left hip pain HPI: 77-year-old male with CAD, history of ME in the remote ME in 2007, status post PTCA/stenting of RCA, and subsequent PTCA stenting of LAD-intervention report not available; hypertension, dyslipidemia, LILO intolerant to CPAP, Martin's esophagus. Patient follows up with Dr. Craft for his cardiovascular care. He presented to [facility] Emergency Room on 12/18/2022 after he had a mechanical fall. He denied any preceding symptoms of chest pain, shortness of breath, dizziness or syncope. At baseline, patient has limited mobility due to back pain. He has not had any recent angina or dyspnea for his lower activity. Patient follows up with Dr. Craft for his cardiovascular care. X-ray showed Acute intertrochanteric fracture of the left femur. CT head did not show any acute intracranial abnormality. Chest x-ray unremarkable. EKG on my personal evaluation showed sinus rhythm, right bundle-branch block, left anterior fascicular block. No acute ST segment abnormality. Review of patient's previous medical records showed echocardiogram from 06/29/2018 which reported normal LVEF, grade 1 diastolic dysfunction, mild biatrial enlargement, calcified aortic valve with mild aortic stenosis with mild aortic regurgitation. Subsequent echocardiogram performed in outpatient clinic with unknown date reportedly showed mild aortic stenosis based on the clinical notes. He had MPI done on 08/05/2022 which reportedly showed LVEF 48% with ischemia. Based on the outpatient notes from Dr. Craft, patient was deemed to be appropriate candidate for recent left subclavian vascular surgery. As per patient's , he did well after recent vascular surgery without any major cardiovascular events. I personally reviewed patient's extensive medical records from [facility] and from [facility]. Review of Systems Review of Systems: General: Positive for fatigue Psychological: Negative for anxiety
[2022-12-19] MEDS: GABAPENTIN 100 MG CAPSULE 200 MG PO ×2 (10:29→17:25)
[2022-12-19] MEDS: PANTOPRAZOLE 40 MG TABLET PO ×2 (10:29→20:19)
[2022-12-19] MEDS: CYANOCOBALAMIN 1,000 MCG TABLET 1000 MCG PO (10:29)
[2022-12-19] MEDS: DOXYCYCLINE HYCLATE 100 MG TABLET PO ×2 (10:29→20:19)
[2022-12-19] MEDS: DULoxetine HCL 20 MG CAPSULE.DR PO ×2 (10:30→20:19)
--- NOTE | 2022-12-19 12:06 | PM.CNOR ---
Assessment and Plan Assessment and plan (1) Intertrochanteric fracture of left femur: Code(s): S72.142A - Displaced intertrochanteric fracture of left femur, initial encounter for closed fracture Status: Acute Assessment and Plan: Patient is a 77-year-old gentleman who was admitted to the hospital yesterday evening after a fall sustaining a closed comminuted displaced left intertrochanteric hip fracture. Patient has a rather extensive past medical history. 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 He has a pain pump in the left lower quadrant for that. He also has pain pump or stimulator in the cervical spine that is scheduled to be removed in January. He sees a neurosurgeon at [facility] monitoring his lumbar spine disease as well. After the catheter or lead removal from his cervical spine he is planning to undergo a major reconstructive fusion in lumbar spine. Patient has history of severe neuropathy and he has he will ulceration of the right heel and has seen the paper sorter and counter Dr. Bonilla for that and he recently saw the vascular specialist in [place] who felt that he had adequate circulation to heal this and did not need a vascular procedure. His past medical history also includes significant heart disease with stenting and aortic stenosis. He does take a baby aspirin daily. The county agricultural agent Dr. Toure saw him this morning and reviewed his history and his previous testing and felt that he was at intermediate risk for cardiac event but was stable to proceed with repair of his left hip fracture at this time without further intervention. On exam he is a little bit confused. He knew the year but he could not remember the name of present by Sahil or President Bradley. He did not know which hospital he was at. Is usually less confused this according to his but since he has been in the hospital he has had bit more confusion associated with the medications he has been on here. He was noted on admission to have a significant urinary tract infection. He takes trimethoprim and chronically and was started on doxycycline this morning. On exam he does have a 2+ dorsalis pedis pulse. His numbness in his feet he is able to wiggle his toes. Impression: Patient has comminuted left intertrochanteric hip fracture. I have discussed treatment options and have recommended proceeding with open reduction internal fixation with trochanteric nail device. I discussed risks of surgery with him and his in detail and we reviewed risk of infection which is elevated in smokers and risk of delayed healing which is elevated in smokers. Risk of blood clots was discussed and I would recommend we use Eliquis for 5 weeks postoperatively for DVT prophylaxis. He is at increased risk for cardiac complications because of his history of previous stenting in heart attack. He is at increased risk for stroke because of history of carotid artery atherosclerotic disease. His hemoglobin is 12.3 this morning. Some patients will require transfusion with this type of fracture. We discussed the risk of medical complications leading to mortality and patient and his understand. Option of non operative treatment was discussed but it would be very unlikely he would walk again with that option and he would like to proceed with surgery to attempt to have the best possible result. He does use a walker or cane normally and plans to use a walker consistently from now on to decrease his risk of further falls. We will proceed as discussed. 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
--- NOTE | 2022-12-19 12:17 | WPDHPUPDATE1 ---
History and Physical Update Update Date/Time: 12/19/22 12:17 History and Physical has been reviewed, including an updated exam of the patient. There are NO changes in the patient's condition. Risks, benefits, and alternatives have been discussed and questions answered. Patient agrees to proceed with procedure.
[2022-12-19] MEDS: TRANEXAMIC ACID 1,000MG/ISO100 1,000 MG/100 ML BAG 200 MG IVPB (12:21)
[2022-12-19] MEDS: LACTATED RINGERS 1,000 ML 30 ML IV CONT ×2 (12:52→15:43)
--- NOTE | 2022-12-19 12:59 | WPDANESEPPF ---
Anes - Initial Pre Proc Eval Procedure: Operation Date: 12/19/22 12:30 Proposed Procedures p Left Intertrochanteric Nail - Jareth Simmons MD Date/Time: 12/19/22 12:59 Surgeon: Rebecca Mckee PA-C Pre Op Diagnosis: left hip fracture uti Patient Data Age: 77 Gender: M Height: 1.83 m Weight: 72 kg Last Vital Signs Temp 36.2 C L 12/19/22 04:25 Pulse 77 12/19/22 04:25 Resp 16 12/19/22 04:25 BP 143/69 H 12/19/22 04:25 Pulse Ox 97 12/19/22 04:25 O2 Del Method Room Air 12/19/22 00:01 Allergies Allergy/AdvReac Type Severity Reaction Status Date / Time No Known Allergies Allergy Verified 10/29/22 09:43 Home Medications Medication Instructions Recorded Confirmed Type hydrocodone 10 mg-acetaminophen 1 tablet PO TID PRN Pain 08/14/19 12/19/22 History 325 mg tablet cholecalciferol (vitamin D3) 25 25 mcg PO DAILY 07/23/20 12/19/22 History mcg (1,000 unit) capsule (Vitamin D3) cyanocobalamin (vitamin B-12) 1,000 mcg PO DAILY 07/23/20 12/19/22 History 1,000 mcg tablet morphine See Rx Instructions .Route .COMPLEX 07/23/20 12/19/22 History potassium 99 mg tablet 99 mg PO DAILY 07/23/20 12/19/22 History trimethoprim 100 mg tablet 100 mg PO QAM 07/23/20 12/19/22 History aspirin 81 mg tablet 81 mg PO DAILY 12/31/21 12/19/22 History nitroglycerin 0.4 mg sublingual 0.4 mg sublingual Q5-10M PRN Chest 12/31/21 12/19/22 History tablet Pain pantoprazole 40 mg tablet,delayed 40 mg PO BID #180 tabs 07/27/22 12/19/22 Rx release atorvastatin 20 mg tablet See Rx Instructions .Route 08/14/22 12/19/22 Rx .COMPLEX #90 tabs pen needle, diabetic 31 gauge x #50 ea 10/26/22 11/24/22 Rx 12/03 (Comfort EZ Pen Carrington) diclofenac sodium 75 mg See Rx Instructions .Route 12/03/22 12/19/22 Rx tablet,delayed release .COMPLEX #180 tabs teriparatide 20 mcg/dose (600 See Rx Instructions .Route 12/18/22 12/19/22 Rx mcg/2.4 mL) subcutaneous pen .COMPLEX #2.4 mL injector (Forteo) collagenase clostridium histo. 250 250 unit topical BID 12/19/22 12/19/22 History unit/gram topical ointment (Santyl) doxycycline hyclate 100 mg capsule 100 mg PO BID 12/19/22 12/19/22 History duloxetine 20 mg capsule,delayed 20 mg PO BID 12/19/22 12/19/22 History release gabapentin 100 mg capsule 200 mg PO BID 12/19/22 12/19/22 History teriparatide 20 mcg/dose (600 20 mcg subcut HS 12/19/22 12/19/22 History mcg/2.4 mL) subcutaneous pen injector (Forteo) trospium 20 mg tablet 20 mg PO BID 12/19/22 12/19/22 History Laboratory Tests 12/18/22 12/18/22 12/18/22 19:24 19:24 19:24 WBC 13.8 K/mm3 H K/mm3 (4.5-10.0) RBC 4.07 M/mm3 L M/mm3 (4.6-6.20) Hgb 12.8 g/dL L g/dL (14.0-18.0) Hct 38.6 % L % (42.0-52.0) MCV 94.8 fl fl (80-100) MCH 31.4 pg pg (26-34) MCHC 33.2 g/dl g/dl (32-36) RDW 13.8 % % (11.5-14.5) Plt Count 280 k/mm3 k/mm3 (150-375) MPV 9.4 fl fl (7.4-10.4) Immature Gran % (Auto) 0.3 % % (0-0.5) Neut % (Auto) 82.4 % H % (45.5-73.1) Lymph % (Auto) 9.1 % L % (18.3-44.2) [place] % (Auto) 7.3 % % (2.6-8.5) Eos % (Auto) 0.5 % % (0-4.4) Baso % (Auto) 0.4 % % (0.2-1.2) Lymph # (Auto) 1.26 K/mm3 K/mm3 (0.9-3.2) [place] # (Auto) 1.0 K/mm3 H K/mm3 (0.1-0.6) Eos # (Auto) 0.1 K/mm3 K/mm3 (0-0.3) Baso # (Auto) 0.1 K/mm3 K/mm3 (0.0-0.1) Abs Immat Gran (auto) 0.04 K/mm3 H K/mm3 (0.00-0.031) Absolute Neuts (auto) 11.4 K/mm3 H K/mm3 (1.3-6.7) Absolute Nucleated RBC 0.0 K/mm3 K/mm3 (0.0-0.012) Nucleated RBC % 0.0 % % (0.0-0.2) PT 14.2 Seconds Seconds (11.1-14.7) INR 1.1 APTT 29.4 SECONDS SECONDS (22.3-36.8) Sodium 135 mmol/L L mmol/L (137-145) Potassium 4.1 mmol/L mmol/L
--- NOTE | 2022-12-19 15:24 | P.OP_ITS ---
Procedure Note - Detailed Date of Procedure 12/19/22 Pre-op Diagnosis Four part left intertrochanteric hip fracture Post-op Diagnosis Same Procedure Performed Open reduction internal fixation left intertrochanteric hip fracture with Arthr ex ES trochanteric nail device Surgeon Jareth Simmons MD [employer] Wheel Operator Parvin Arguello Anesthesia General Description of Procedure Patient brought to the operating room and general anesthesia was administered. He received 2 g Ancef weight based vancomycin 1 g of tranexamic acid. The left hip and thigh was scrubbed with the chlorhexidine cloth. Soft roll and Coban placed on the left foot and he was placed in the traction boot the right hip flexed abducted out of the way. Left hip was prepped draped usual fashion. Under fluoro we could bring the fracture out to length with longitudinal traction but the medial translation of the distal medial spike of the head neck fragment remained medially displaced by about 6 or 7 mm. We tried various maneuvers such as pushing on the left thigh medially and pushing on the right hip medially applying traction in different degrees of rotation but that bit of displacement did not correct. A 2 in incision was made proximal to the greater trochanter guide pin inserted through the fashion through the fracture between the superior femoral neck and greater trochanter and we used a starter Reamer to open this area up and then paced placed along guidewire. We measured for a 33 cm huy. The canal was reamed to 13 mm which obtained significant chatter. His isthmus was markedly smaller than the proximal diameter of the intramedullary canal due to unusually thick cortices. The 33 cm x 11 mm 125 degree huy was inserted to the appropriate depth. We then made a 2 in incision for the lag screw in the anti rotation screw and used a [place] elevator to elevate the vastus lateralis off the lateral and anterior surface of the femoral shaft there and placed a small bone hook carefully along the bone and over the top of the distal spike of the head neck fragment and I tried various maneuvers to try to pull this spike against the medial femoral shaft to reduce the but was unsuccessful and I have concluded that there is displacement of the iliopsoas tendon preventing reduction as much of the lesser trochanter was still intact. We reduced the fracture otherwise bringing the fully out to length with longitudinal traction and use of muscle paralysis and endotracheal anesthesia to avoid a varus alignment and maintained pressure on the lateral aspect of the right hip to avoid varus distraction and placed a guide pin low in the femoral head perfect center on the lateral view and then a 2nd guide pin used in the anti rotation hole. We drilled for 120 mm telescoping lag screw which was inserted to about 8 mm from subchondral bone the lag screw locked to the huy and the activation pin removed. Traction was released to allow impaction and minimal impaction occurred and a 100 mm anti rotation screw was placed superiorly. We then placed the interlocking screw in the mid shaft hole completing fixation. Final fluoroscopic x-rays showed appropriate alignment of the fracture and hardware position the wounds irrigated with antibiotic solution. The fascia and the proximal and middle incisions were closed was closed with 1. Vicryl and the skin closed with 2-0 subcutaneous Vicryl and glue EBL was 150. Bone quality seemed to be very good. No known complications.
--- NOTE | 2022-12-19 15:42 | SUR.OPER ---
left foot color remains same stronger +2 pulse
[2022-12-19] MEDS: fentaNYL CITRATE INJ (*CRX) 100 MCG/2 ML VIAL 25 MCG IV PUSH ×4 (16:12→16:47)
--- NOTE | 2022-12-19 16:44 | PC.NURSE ---
Returned from OR per []. Report received from [kelsey].
[2022-12-19] MEDS: COLLAGENASE OINT 30 GM TUBE 1 APPLIC TOPICAL (17:22)
[2022-12-19] MEDS: SENNA/DOCUSATE SODIUM TABLET 2 TAB PO (17:24)
[2022-12-19] MEDS: ACETAMINOPHEN 500 MG TABLET 1000 MG PO (17:25)
--- NOTE | 2022-12-19 19:04 | PHAR ---
RX [id number] IDENTIFIED Forteo Subcutaneous Solution: 250 MCG/1 ML AMDINISTER 0.08ML (20MCG) UNDER THE SKIN DAILY
[2022-12-19] MEDS: APIXABAN 2.5 MG TABLET PO (20:19)
[2022-12-19] MEDS: oxyCODONE HCL (*CRX) 5 MG TAB IR PO (20:19)
[2022-12-19] MEDS: ATORVASTATIN 20 MG TABLET PO (20:19)
[2022-12-19] MEDS: ceFAZolin 1 GM/NS 50 ML 1 GM/50 ML BAG IVPB (20:24)
[2022-12-20] VITALS (10 sets, daily range): BP systolic 118–131; BP diastolic 52–78; PULSE 66–82; RESP 18–20; TEMP 36.6–37; O2SAT 95–99
[2022-12-20] MEDS: ACETAMINOPHEN 500 MG TABLET 1000 MG PO ×4 (00:06→17:08)
[2022-12-20] MEDS: oxyCODONE HCL (*CRX) 5 MG TAB IR PO ×6 (00:07→20:23)
[2022-12-20] MEDS: ceFAZolin 1 GM/NS 50 ML 1 GM/50 ML BAG IVPB (05:07)
[2022-12-20 06:03] LABS: Basophils Percent Auto 0.4 % (0.2-1.2); Eosinophils Percent Auto 0.2 % (0-4.4); Hematocrit 30.1 % (42.0-52.0); Hemoglobin 9.8 g/dL (14.0-18.0); Immature Granulocyte Absolute 0.04 K/mm3 (0.00-0.031); Immature Granulocyte Percent A 0.4 % (0-0.5); Lymphocytes Absolute Auto 1.86 K/mm3 (0.9-3.2); Lymphocytes Percent Auto 16.5 % (18.3-44.2); Mean Corpuscular HGB Conc 32.6 g/dl (32-36); Mean Corpuscular Hemoglobin 31.4 pg (26-34); Mean Corpuscular Volume 96.5 fl (80-100); Mean Platelet Volume 9.4 fl (7.4-10.4); Monocytes Absolute Auto 1.5 K/mm3 (0.1-0.6); Monocytes Percent Auto 13.2 % (2.6-8.5); Neutrophils Absolute Auto 7.8 K/mm3 (1.3-6.7); Neutrophils Percent Auto 69.3 % (45.5-73.1); Platelet Count Result 204 k/mm3 (150-375); Red Blood Count 3.12 M/mm3 (4.6-6.20); Red Cell Distribution Width 14.1 % (11.5-14.5); White Blood Count 11.3 K/mm3 (4.5-10.0)
[2022-12-20 06:15] LABS: Anion Gap 4 mmol/L (8-16); Blood Urea Nitrogen 17 mg/dL (9-20); Calcium 8.6 mg/dL (8.4-10.2); Carbon Dioxide 32 mmol/L (22-30); Chloride 101 mmol/L (98-107); Estimated CRCL calculation 91 ml/min; Estimated Glomerular Filt Rate > 60; Glucose 114 mg/dL (65-110); Potassium 4.1 mmol/L (3.4-5.0); Sodium 137 mmol/L (137-145)
[2022-12-20] MEDS: PANTOPRAZOLE 40 MG TABLET PO ×2 (07:59→20:23)
[2022-12-20] MEDS: ASPIRIN 81 MG CHEWABLE TABLET PO (07:59)
[2022-12-20] MEDS: APIXABAN 2.5 MG TABLET PO ×2 (07:59→20:23)
[2022-12-20] MEDS: CYANOCOBALAMIN 1,000 MCG TABLET 1000 MCG PO (08:00)
[2022-12-20] MEDS: CHOLECALCIFEROL 1,000 UNITS TABLET 1000 UNITS PO (08:00)
[2022-12-20] MEDS: GABAPENTIN 100 MG CAPSULE 200 MG PO ×2 (08:00→16:40)
[2022-12-20] MEDS: SENNA/DOCUSATE SODIUM TABLET 2 TAB PO ×2 (08:00→16:40)
[2022-12-20] MEDS: DOXYCYCLINE HYCLATE 100 MG TABLET PO ×2 (08:00→20:23)
[2022-12-20] MEDS: DULoxetine HCL 20 MG CAPSULE.DR PO ×2 (08:01→20:24)
[2022-12-20] MEDS: polyethylene glycoL 3350 17 GM POWD.PACK PO (08:01)
[2022-12-20] MEDS: COLLAGENASE OINT 30 GM TUBE 1 APPLIC TOPICAL ×2 (08:02→16:41)
--- NOTE | 2022-12-20 10:46 | PM.PNORT ---
Progress Note: A&P Assessment and Plan (1) Intertrochanteric fracture of left femur: Code(s): S72.142A - Displaced intertrochanteric fracture of left femur, initial encounter for closed fracture Status: Acute Assessment and Plan: Patient is postop day 1 after internal fixation left intertrochanteric fracture. He is comfortable sitting up in the chair today. The pain control regimen has worked satisfactorily for him thus far. We will continue with the current regimen. At discharge I would expect he would return to his pre-injury regimen of 10 mg Lynd[place] 4 times a day. He is in good spirits today talkative pleasant cheerful. He shows signs of some confusion still. He misspoke and said that he lived in [place] but when I corrected him and stated that I thought he lives in [place] he immediately corrected himself. He knows he is at [facility] and he is here because he injured his leg. I reviewed the surgery that he had with him yesterday showed him the incisions which are dry and no sign of bleeding. There is no significant swelling in his thigh. His laboratory studies are satisfactory. His hemoglobin is 9.8 which is expected drop with this type of fracture and surgery. Platelets 166416. Creatinine 0.6. Urine culture came back at E coli. 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 The E coli is sensitive to ceftriaxone which he is currently on 1 g Q 24 hours. We will discontinue the Ancef dose that he had for this afternoon since he is on the chart ceftriaxone and will defer to the hospitalist service to switch him to an appropriate oral alternative when they feel that is appropriate. His right heel is wrapped with gauze over a Telfa with the special ointment on the heel sore. I had a long discussion with the patient's yesterday. The nurse from the vascular surgeon's office recommended that he wrap the heel with an Sumit wrap on top of the dressings. I explained that that is usually not what we do for a pressure sore over a bony prominence but the Sumit wrap compression dressing is more appropriate for venous stasis ulcerations and that is not what this is. We do have the Mepilex special heel sponge dressing on the back of his left heel to protect that was in the hospital. She is going to clarify with the vascular surgeon's office precisely how the right heel is supposed to be addressed. I offered to refer her to the local [facility] as they are experts with managing these types of wounds. The vascular surgeon has already indicated that he is not going to recommend any type of vascular treatment as he feels the vascular supply to the right foot is adequate for healing. Dr. Elmore is following the patient. At discharge I am concerned that will be confusion on what specific orders the rehab facility is to follow with respect to the right heel pressure sore. I am going to consult Dr. Elmore is to see possibly tomorrow to address that question as he is managing the heel sore and I would like it to be managed according to his wishes. I spoke to patient's Shilo this morning and she has decided she would like patient to go to acute rehab as her 1st choice at the [facility] rehab facility which would be excellent for this patient as he would benefit from rehab. He was not doing particularly well from a functional standpoint prior to his fall. If he is not accepted into the acute rehab her 2nd choice would be the [facility] senior care Unit. Subjective Subjective Date/Time Seen: 12/20/22 10:46 Objective Data Vital Signs Vital Signs: Vital Signs - 24 hr 12/19/22 15:50 12/19/22 16:05 12/19/22 16:20 Temperature 37.1 C Pulse Rate 71 78 72 Respiratory Rate 14 20 11 L Blood Pressure 168/78 H 174/90 H 124/95 H Pulse Oximetry 100 100 100 Oxygen Delivery Simple Face Mask Simple Face Mask Simple Face Mask Oxygen Flow Rate 8 8 8 12/19/22
--- NOTE | 2022-12-20 11:57 | P.PNAN_ITS ---
Anes - Prog Note Post-Op Date/Time: 12/20/22 11:57 Cardiovascular status: normal Respiratory status: normal Airway patency: baseline Mental status: baseline Post-Op hydration status: normal Vital Signs: Last Vital Signs Temp 37.0 C 12/20/22 10:38 Pulse 80 12/20/22 10:38 Resp 20 12/20/22 10:38 BP 128/66 12/20/22 10:38 Pulse Ox 96 12/20/22 10:38 O2 Del Method Room Air 12/20/22 09:59 O2 Flow Rate 8 12/19/22 16:20 Pain Score (VAS): 11/27 I/O: Intake & Output 12/19/22 12/20/22 12/20/22 23:59 07:59 15:59 Intake Total 1270 250 490 Output Total 720 1850 Balance 550 -1600 490 Laboratory Tests 12/20/22 05:49 12/20/22 05:49 12/20/22 12/20/22 05:49 05:49 WBC 11.3 H RBC 3.12 L Hgb 9.8 L Hct 30.1 L MCV 96.5 MCH 31.4 MCHC 32.6 RDW 14.1 Plt Count 204 MPV 9.4 Immature Gran % (Auto) 0.4 Neut % (Auto) 69.3 Lymph % (Auto) 16.5 L [place] % (Auto) 13.2 H Eos % (Auto) 0.2 Baso % (Auto) 0.4 Lymph # (Auto) 1.86 [place] # (Auto) 1.5 H Eos # (Auto) 0.0 Baso # (Auto) 0.0 Abs Immat Gran (auto) 0.04 H Absolute Neuts (auto) 7.8 H Absolute Nucleated RBC 0.0 Nucleated RBC % 0.0 Sodium 137 Potassium 4.1 Chloride 101 Carbon Dioxide 32 H Anion Gap 4 L BUN 17 Creatinine 0.60 L Estim Creat Clear Calc 91 Estimated GFR > 60 Glucose 114 H Calcium 8.6 Microbiology 12/18/22 19:27 Urine Clean Catch Urine Culture - Final Escherichia Coli Post-procedural complaints: none Patient Feedback: Patient satisfied with anesthetic care.
--- NOTE | 2022-12-20 12:26 | PM.PNCARD ---
Progress Note: A&P Assessment and Plan (1) Preop cardiovascular exam: Code(s): Z01.810 - Encounter for preprocedural cardiovascular examination Status: Acute Assessment and Plan: 77-year-old male with CAD, history of [place], status post PTCA/stenting of RCA, and subsequent PTCA stenting of LAD-intervention report not available; hypertension, dyslipidemia, LILO intolerant to CPAP, Martin's esophagus. Patient admitted to the hospital after he had a fall, found to have Acute intertrochanteric fracture of the left femur. He is post op day 1 ORIF of left intertrochanteric fracture. Postop care as per primary team/orthopedic surgery. Stable from cardiovascular standpoint. continue aspirin, statin. DVT prophylaxis. Outpatient follow-up with Dr. Craft for longitudinal cardiac care. Will sign off. Please call with any questions. Subjective Date/time seen: 12/20/22 12:26 Interval history: 12/20/2022-patient is sitting up in the chair, denies any cardiovascular symptoms including chest pain or shortness of breath. He is post op day 1 ORIF of left intertrochanteric fracture Exam Narrative: PHYSICAL EXAMINATION: GENERAL: Alert, no acute distress MENTAL STATUS: affect appropriate to mood EYES: Extraocular movements intact, no pallor EARS: External ears appear normal, hearing grossly normal NOSE: Normal and patent, no discharge MOUTH: Mucous membranes moist, tongue normal NECK: Supple, no JVD CHEST: Good respiratory effort, clear to auscultation HEART: Normal rate, regular rhythm, distant heart sounds, soft systolic murmur ABDOMEN: Soft, nontender NEUROLOGICAL: Mildly somnolent, speech coherent MUSCULOSKELETAL: No major deformity, no amputation EXTREMITIES: No pedal edema, limited movement left lower extremity SKIN: no rash on the exposed area, no cyanosis PSYCHIATRIC: Normal mood, appropriate affect Objective Data Vital Signs Vital Signs: Vital Signs - 24 hr 12/19/22 15:50 12/19/22 16:05 12/19/22 16:20 Temperature 37.1 C Pulse Rate 71 78 72 Respiratory Rate 14 20 11 L Blood Pressure 168/78 H 174/90 H 124/95 H Pulse Oximetry 100 100 100 Oxygen Delivery Simple Face Mask Simple Face Mask Simple Face Mask Oxygen Flow Rate 8 8 8 12/19/22 16:35 12/19/22 17:38 12/19/22 18:38 Temperature 36.6 C 36.6 C Pulse Rate 74 102 H 80 Respiratory Rate 16 20 20 Blood Pressure 171/76 H 145/76 H 126/69 Pulse Oximetry 98 97 98 Oxygen Delivery Room Air Oxygen Flow Rate 12/19/22 20:02 12/19/22 20:00 12/19/22 20:00 Temperature 36.3 C L Pulse Rate 93 91 93 Respiratory Rate 18 18 Blood Pressure 127/64 Pulse Oximetry 97 97 Oxygen Delivery Room Air Oxygen Flow Rate 12/19/22 23:59 12/20/22 00:00 12/20/22 04:02 Temperature 36.3 C L 36.6 C Pulse Rate 80 77 66 Respiratory Rate 16 18 Blood Pressure 113/67 131/78 Pulse Oximetry 98 97 Oxygen Delivery Oxygen Flow Rate 12/20/22 04:00 12/20/22 08:31 12/20/22 08:00 Temperature Pulse Rate 70 74 Respiratory Rate Blood Pressure Pulse Oximetry Oxygen Delivery Room Air Oxygen Flow Rate 12/20/22 09:59 12/20/22 10:38 12/20/22 12:00 Temperature 37.0 C 36.8 C Pulse Rate 80 75 Respiratory Rate 20 20 Blood Pressure 128/66 118/59 L Pulse Oximetry 95 96 99 Oxygen Delivery Room Air Oxygen Flow Rate Intake/Output Intake/Output: Intake & Output 12/17/22 12/18/22 12/19/22 12/20/22 23:59 23:59 23:59 23:59 Intake Total 150 2620 740 Output Total 1070 1850 Balance 150 1550 -1110 Meds/Results Medications: Active Medications Generic Name Dose Route Start Last Admin Trade Name Marija PRN Reason Stop Dose Admin Acetaminophen 1,000 mg 12/19/22 18:00 12/20/22 11:05 Acetaminophen 500 Mg Tablet PO 1,000 mg Q6HR SHAHRIAR Administration Apixaban 2.5 mg 12/19/22 21:00 12/20/22 07:59 Apixaban 2.5 Mg Tablet PO 2.5 mg Q12HR SHAHRIAR Administra
--- NOTE | 2022-12-20 12:46 | P.PNIM_ITS ---
Progress Note: A&P Assessment and Plan (1) Closed intertrochanteric fracture of left hip: Code(s): S72.142A - Displaced intertrochanteric fracture of left femur, initial encounter for closed fracture Status: Acute Assessment and Plan: secondary to mechanical fall. Hip/pelvis x-ray revealed acute intertrochanteric fracture of the left femur * appreciate orthopedic surgery consultation. * patient underwent ORIF on 12/19/2022. Tolerated the procedure well * appreciate PT/OT eval * supportive care. continue analgesics as needed (2) Acute UTI: Code(s): N39.0 - Urinary tract infection, site not specified Status: Acute Assessment and Plan: Patient with history of frequent UTIs maintained on daily trimethoprim. UA abnormal on presentation with positive nitrates and 3+ leuk esterase * urine culture with growth of >100k E coli * continue IV ceftriaxone based on susceptibility report (3) Fall: Code(s): W19.XXXA - Unspecified fall, initial encounter Status: Acute Assessment and Plan: sounds to be a mechanical fall. Patient did not report precipitating symptoms, however is a poor historian * unclear if the patient hit his head, however head CT with no acute finding * implement fall precautions (4) Wound of right foot: Code(s): S91.301A - Unspecified open wound, right foot, initial encounter Status: Acute Assessment and Plan: patient with chronic right foot wound managed by podiatry and vascular surgery, awaiting ID evaluation * continue p.o. doxycycline 100 mg q.12 * will need to continue with outpatient follow-up (5) CAD (coronary artery disease): Code(s): I25.10 - Atherosclerotic heart disease of [place] coronary artery without angina pectoris Status: Acute Assessment and Plan: no acute issues at this time * patient was evaluated by Cardiology prior to surgery * continue to follow-up with his primary housing quality standard inspector (6) Chronic back pain: Code(s): M54.9 - Dorsalgia, unspecified; G89.29 - Other chronic pain Status: Acute Assessment and Plan: ongoing issue, patient is established with neurosurgery. * Patient does have an active pain pump * also has an implanted TENS unit which is scheduled for removal and replacement in January * continue supportive care (7) Altered mental status: Code(s): R41.82 - Altered mental status, unspecified Status: Acute Assessment and Plan: mental status is significantly improved today * likely secondary to UTI * patient does have chronic memory deficit and is established with a memory care physician. does not seem to be far off his baseline at this time Subjective Date/time seen: 12/20/22 12:46 Interval history: Date of service: 12/20/22 Gregory cSherer is a 77-year-old male with an extensive medical history to include chronic back pain with history of laminectomy and active morphine pain pump and spinal cord stimulator implant,? peripheral vascular disease and chronic right foot wound established with podiatry and vascular surgery with questionable reports of bone infection currently on oral antibiotics for 1 month, scheduled to see ID in 2 weeks, coronary artery disease s/p angioplasty and cardiac stents, chronic UTIs, tobacco abuse, hypertension, hyperlipidemia, subclavian steal syndrome s/p subclavian bypass, and suspected dementia followed by memory care but not formally diagnosed, and multiple other medical problems who Is seen in follow-up f
--- NOTE | 2022-12-20 12:46 | PM.IMPN ---
Progress Note: A&P Assessment and Plan (1) Closed intertrochanteric fracture of left hip: Code(s): S72.142A - Displaced intertrochanteric fracture of left femur, initial encounter for closed fracture Status: Acute Assessment and Plan: secondary to mechanical fall. Hip/pelvis x-ray revealed acute intertrochanteric fracture of the left femur appreciate orthopedic surgery consultation. patient underwent ORIF on 12/19/2022. Tolerated the procedure well appreciate PT/OT eval supportive care. continue analgesics as needed (2) Acute UTI: Code(s): N39.0 - Urinary tract infection, site not specified Status: Acute Assessment and Plan: Patient with history of frequent UTIs maintained on daily trimethoprim. UA abnormal on presentation with positive nitrates and 3+ leuk esterase urine culture with growth of >100k E coli continue IV ceftriaxone based on susceptibility report (3) Fall: Code(s): W19.XXXA - Unspecified fall, initial encounter Status: Acute Assessment and Plan: sounds to be a mechanical fall. Patient did not report precipitating symptoms, however is a poor historian unclear if the patient hit his head, however head CT with no acute finding implement fall precautions (4) Wound of right foot: Code(s): S91.301A - Unspecified open wound, right foot, initial encounter Status: Acute Assessment and Plan: patient with chronic right foot wound managed by podiatry and vascular surgery, awaiting ID evaluation continue p.o. doxycycline 100 mg q.12 will need to continue with outpatient follow-up (5) CAD (coronary artery disease): Code(s): I25.10 - Atherosclerotic heart disease of [place] coronary artery without angina pectoris Status: Acute Assessment and Plan: no acute issues at this time patient was evaluated by Cardiology prior to surgery continue to follow-up with his primary form press operator (6) Chronic back pain: Code(s): M54.9 - Dorsalgia, unspecified; G89.29 - Other chronic pain Status: Acute Assessment and Plan: ongoing issue, patient is established with neurosurgery. Patient does have an active pain pump also has an implanted TENS unit which is scheduled for removal and replacement in January continue supportive care (7) Altered mental status: Code(s): R41.82 - Altered mental status, unspecified Status: Acute Assessment and Plan: mental status is significantly improved today likely secondary to UTI patient does have chronic memory deficit and is established with a memory care physician. does not seem to be far off his baseline at this time Subjective Date/time seen: 12/20/22 12:46 Interval history: Date of service: 12/20/22 Gregory Scherer is a 77-year-old male with an extensive medical history to include chronic back pain with history of laminectomy and active morphine pain pump and spinal cord stimulator implant,? peripheral vascular disease and chronic right foot wound established with podiatry and vascular surgery with questionable reports of bone infection currently on oral antibiotics for 1 month, scheduled to see ID in 2 weeks, coronary artery disease s/p angioplasty and cardiac stents, chronic UTIs, tobacco abuse, hypertension, hyperlipidemia, subclavian steal syndrome s/p subclavian bypass, and suspected dementia followed by memory care but not formally diagnosed, and multiple other medical problems who Is seen in follow-up for left hip fracture. patient reports that he is better today. he is much more alert with a more logical thought process. he tells me that he is having a significant amount of pain today, states it is pretty bad , especially when he got out of bed and moved to the chair. States it is not much better rest but slightly improved. He was able to pivot with a walker and felt he did well with this. He d
[2022-12-20] MEDS: ATORVASTATIN 20 MG TABLET PO (20:23)
--- NOTE | 2022-12-20 21:18 | PC.NURSE ---
Consult for Dr. Bonilla attempted to leave message through exchange however voice mail box is full. Will try cell phone in AM.
[2022-12-21] VITALS: PULSE 79
[2022-12-21] MEDS: oxyCODONE HCL (*CRX) 5 MG TAB IR PO ×6 (00:20→20:43)
[2022-12-21] MEDS: ACETAMINOPHEN 500 MG TABLET 1000 MG PO ×5 (00:20→23:56)
[2022-12-21 04:00] VITALS: PULSE 80
[2022-12-21 06:26] LABS: Hemoglobin 8.6 g/dL (14.0-18.0); Mean Corpuscular HGB Conc 33.1 g/dl (32-36); Mean Corpuscular Volume 96.7 fl (80-100); Mean Platelet Volume 9.5 fl (7.4-10.4); Platelet Count Result 207 k/mm3 (150-375); Red Blood Count 2.69 M/mm3 (4.6-6.20); White Blood Count 12.5 K/mm3 (4.5-10.0)
[2022-12-21 06:36] LABS: Anion Gap 2 mmol/L (8-16); Blood Urea Nitrogen 18 mg/dL (9-20); Calcium 8.7 mg/dL (8.4-10.2); Carbon Dioxide 32 mmol/L (22-30); Chloride 98 mmol/L (98-107); Estimated CRCL calculation 107 ml/min; Estimated Glomerular Filt Rate > 60; Glucose 113 mg/dL (65-110); Potassium 3.7 mmol/L (3.4-5.0); Sodium 132 mmol/L (137-145)
[2022-12-21 08:30] VITALS: PULSE 69
[2022-12-21] MEDS: CYANOCOBALAMIN 1,000 MCG TABLET 1000 MCG PO (08:47)
[2022-12-21] MEDS: ASPIRIN 81 MG CHEWABLE TABLET PO (08:47)
[2022-12-21] MEDS: PANTOPRAZOLE 40 MG TABLET PO ×2 (08:47→20:43)
[2022-12-21] MEDS: DULoxetine HCL 20 MG CAPSULE.DR PO ×2 (08:47→20:43)
[2022-12-21] MEDS: SENNA/DOCUSATE SODIUM TABLET 2 TAB PO ×2 (08:47→16:42)
[2022-12-21] MEDS: COLLAGENASE OINT 30 GM TUBE 1 APPLIC TOPICAL ×2 (08:48→16:42)
[2022-12-21] MEDS: CHOLECALCIFEROL 1,000 UNITS TABLET 1000 UNITS PO (08:48)
[2022-12-21] MEDS: GABAPENTIN 100 MG CAPSULE 200 MG PO ×2 (08:48→16:42)
[2022-12-21] MEDS: DOXYCYCLINE HYCLATE 100 MG TABLET PO ×2 (08:48→20:43)
[2022-12-21] MEDS: polyethylene glycoL 3350 17 GM POWD.PACK PO (08:48)
[2022-12-21] MEDS: APIXABAN 2.5 MG TABLET PO ×2 (08:48→20:43)
--- NOTE | 2022-12-21 11:42 | PC.NURSE ---
RN attempted to call Dr. Elmore for consult with no response
[2022-12-21 12:00] VITALS: PULSE 88
--- NOTE | 2022-12-21 13:46 | PM.PNORT ---
Subjective Subjective Date/Time Seen: 12/21/22 13:46 patient is postop day 2. He is alert. He is up in chair. He states that his pain is well controlled at this point. 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 This is most likely due from the sore his posterior calcaneus. They did have an appointment set up with Infectious Disease in [address]. Care coordination is working on acute rehab facility placement. They have not found 1 yet. Hemoglobin is at 8.6 today, he seems to be tolerating this without any issues. Therapy has had him standing but has not ambulated at this point. Hopefully patient will get accepted to rehab facility and be discharged tomorrow. We will continue to follow while he is here. Objective Data Vital Signs Vital Signs: Vital Signs - 24 hr 12/20/22 16:00 12/20/22 14:38 12/20/22 20:00 Temperature 36.6 C Pulse Rate 80 77 82 Respiratory Rate 20 Blood Pressure 120/52 L Pulse Oximetry 98 Oxygen Delivery 12/20/22 20:00 12/21/22 00:00 12/21/22 04:00 Temperature Pulse Rate 82 79 80 Respiratory Rate 20 Blood Pressure Pulse Oximetry 98 Oxygen Delivery Room Air 12/21/22 08:30 12/21/22 08:30 12/21/22 12:00 Temperature Pulse Rate 69 88 Respiratory Rate Blood Pressure Pulse Oximetry Oxygen Delivery Room Air Intake/Output Intake/Output: Intake & Output 12/18/22 12/19/22 12/20/22 12/21/22 23:59 23:59 23:59 23:59 Intake Total 150 2620 1470 480 Output Total 1070 2300 Balance 150 1550 -830 480 Meds/Results Medications: Active Medications Generic Name Dose Route Start Last Admin Trade Name Freq PRN Reason Stop Dose Admin Acetaminophen 1,000 mg 12/19/22 18:00 12/21/22 12:42 Acetaminophen 500 Mg Tablet PO 1,000 mg Q6HR SHAHRIAR Administration Apixaban 2.5 mg 12/19/22 21:00 12/21/22 08:48 Apixaban 2.5 Mg Tablet PO 2.5 mg Q12HR SHAHRIAR Administration Aspirin 81 mg 12/20/22 08:00 12/21/22 08:47 Aspirin 81 Mg Chewable Tablet PO 81 mg DAILY@0800 SHAHRIAR Administration Atorvastatin Calcium 20 mg 12/19/22 21:00 12/20/22 20:23 Atorvastatin 20 Mg Tablet PO 20 mg HS SHAHRIAR Administration Collagenase 1 applic 12/21/22 09:00 Collagenase Oint 30 Gm Tube TOPICAL DAILY SHAHRIAR Cyanocobalamin 1,000 mcg 12/19/22 09:00 12/21/22 08:47 Cyanocobalamin 1,000 Mcg Tablet PO 1,000 mcg DAILY SHAHRIAR Administration Doxycycline Hyclate 100 mg 12/20/22 21:00 12/21/22 08:48 Doxycycline Hyclate 100 Mg Tablet PO 100 mg Q12HR SHAHRIAR Administration Duloxetine HCl 20 mg 12/19/22 10:00 12/21/22 08:47 Duloxetine Hcl 20 Mg Capsule.Dr PO 20 mg Q12HR SHAHRIAR Administration Gabapentin 200 mg 12/19/22 10:00 12/21/22 08:48 Gabapentin 100 Mg Capsule PO 200 mg BID SHAHRIAR Administration Home Med 1 each 12/19/22 21:00 12/20/22 20:24 Home Medicationnonformulary Drug (Teriparatide [Forteo] 20 Mcg/Dose (600mcg/2.4ml) Pen Inj SUB-Q 01/18/23 20:59 1 each HS SHAHRIAR Administration Ceftriaxone Sodium 1 gm in 50 mls @ 100 mls/hr 12/19/22 21:00 12/20/22 20:55 Rocephin 1 Gm/Ns 50 Ml IVPB Infused Q24H SHAHRIAR Infusion Miscellaneous Information 0 each 12/19/22 00:01 Trospium Is Nonformulary - Can Patient Bring From Home? XX 01/18/23 00:00 CLARIFY SHAHRIAR Morphine Sulfate 2 mg 12/19/22 16:53 Morphine Sulfate (*Crx) 2 Mg/Ml Inj IV PUSH Q1H PRN Pain Rated 7-10 Naloxone HCl 0.1 mg 12/19/22 16:53 Naloxone Hcl 0.4 Mg/Ml Vial IV PUSH Q2M PRN Opiate Reversal Nitroglycerin 0.4 mg 12/19/22 09:50 Nitroglycerin Sl 0.4 Mg Tablet SUBLINGUAL Q5MIN PRN Chest Pain Non-Formulary Medication 20 mg 12/19/22 17:00 Trospium PO 01/18/23 16:59 BID SHAHRIAR Non-Formulary Medication 99 mg 12/20/22 09:00 Potassium PO 05/02/23 08:59 DAILY SHAHRIAR Oxycodone HCl 5 mg 12/19/22 21:00 12/21/22 12:42 Oxycodo
[2022-12-21 14:35] VITALS: BP 120/62; PULSE 80; RESP 18; TEMP 36.8; O2SAT 97
--- NOTE | 2022-12-21 16:47 | P.PNIM_ITS ---
Progress Note: A&P Assessment and Plan (1) Closed intertrochanteric fracture of left hip: Code(s): S72.142A - Displaced intertrochanteric fracture of left femur, initial encounter for closed fracture Status: Acute Assessment and Plan: secondary to mechanical fall. Hip/pelvis x-ray revealed acute intertrochanteric fracture of the left femur * appreciate orthopedic surgery consultation. * patient underwent ORIF on 12/19/2022. Tolerated the procedure well * appreciate PT/OT eval * supportive care. continue analgesics as needed (2) Acute UTI: Code(s): N39.0 - Urinary tract infection, site not specified Status: Acute Assessment and Plan: Patient with history of frequent UTIs maintained on daily trimethoprim. UA abnormal on presentation with positive nitrates and 3+ leuk esterase * urine culture with growth of >100k E coli * continue IV ceftriaxone based on susceptibility report (3) Fall: Code(s): W19.XXXA - Unspecified fall, initial encounter Status: Acute Assessment and Plan: sounds to be a mechanical fall. Patient did not report precipitating symptoms, however is a poor historian * unclear if the patient hit his head, however head CT with no acute finding * implement fall precautions (4) Wound of right foot: Code(s): S91.301A - Unspecified open wound, right foot, initial encounter Status: Acute Assessment and Plan: patient with chronic right foot wound managed by podiatry and vascular surgery, awaiting ID evaluation * continue p.o. doxycycline 100 mg q.12 * will need to continue with outpatient follow-up * spoke with patient's infectious disease doctor's office today, recommends contacting vascular surgeon for further management. Will call tomorrow during business hours (5) CAD (coronary artery disease): Code(s): I25.10 - Atherosclerotic heart disease of [place] coronary artery without angina pectoris Status: Acute Assessment and Plan: no acute issues at this time * patient was evaluated by Cardiology prior to surgery * continue to follow-up with his primary manager metal (6) Chronic back pain: Code(s): M54.9 - Dorsalgia, unspecified; G89.29 - Other chronic pain Status: Acute Assessment and Plan: ongoing issue, patient is established with neurosurgery. * Patient does have an active pain pump * also has an implanted TENS unit which is scheduled for removal and replacement in January * continue supportive care (7) Altered mental status: Code(s): R41.82 - Altered mental status, unspecified Status: Acute Assessment and Plan: mental status is overall improved * likely secondary to UTI * patient does have chronic memory deficit and is established with a memory care physician. * patient is near his baseline at this time Time Spent With Patient Time: 60 minutes Time with patient: Greater than 35 minutes Subjective Date/time seen: 12/21/22 16:47 Interval history: Date of service: 12/20/22 Gregory Scherer is a 77-year-old male with an extensive medical history to include chronic back pain with history of laminectomy and active morphine pain pump and spinal cord stimulator implant,? peripheral vascular disease and chronic right foot wound established with podiatry and vascular surgery with questionable reports of bone infection currently on oral antibiotics for 1 month, scheduled to see ID in 2 weeks, coronary artery disease s/p angioplasty an
--- NOTE | 2022-12-21 16:47 | PM.IMPN ---
Progress Note: A&P Assessment and Plan (1) Closed intertrochanteric fracture of left hip: Code(s): S72.142A - Displaced intertrochanteric fracture of left femur, initial encounter for closed fracture Status: Acute Assessment and Plan: secondary to mechanical fall. Hip/pelvis x-ray revealed acute intertrochanteric fracture of the left femur appreciate orthopedic surgery consultation. patient underwent ORIF on 12/19/2022. Tolerated the procedure well appreciate PT/OT eval supportive care. continue analgesics as needed (2) Acute UTI: Code(s): N39.0 - Urinary tract infection, site not specified Status: Acute Assessment and Plan: Patient with history of frequent UTIs maintained on daily trimethoprim. UA abnormal on presentation with positive nitrates and 3+ leuk esterase urine culture with growth of >100k E coli continue IV ceftriaxone based on susceptibility report (3) Fall: Code(s): W19.XXXA - Unspecified fall, initial encounter Status: Acute Assessment and Plan: sounds to be a mechanical fall. Patient did not report precipitating symptoms, however is a poor historian unclear if the patient hit his head, however head CT with no acute finding implement fall precautions (4) Wound of right foot: Code(s): S91.301A - Unspecified open wound, right foot, initial encounter Status: Acute Assessment and Plan: patient with chronic right foot wound managed by podiatry and vascular surgery, awaiting ID evaluation continue p.o. doxycycline 100 mg q.12 will need to continue with outpatient follow-up spoke with patient's infectious disease doctor's office today, recommends contacting vascular surgeon for further management. Will call tomorrow during business hours (5) CAD (coronary artery disease): Code(s): I25.10 - Atherosclerotic heart disease of [place] coronary artery without angina pectoris Status: Acute Assessment and Plan: no acute issues at this time patient was evaluated by Cardiology prior to surgery continue to follow-up with his primary database programmer analyst (6) Chronic back pain: Code(s): M54.9 - Dorsalgia, unspecified; G89.29 - Other chronic pain Status: Acute Assessment and Plan: ongoing issue, patient is established with neurosurgery. Patient does have an active pain pump also has an implanted TENS unit which is scheduled for removal and replacement in May continue supportive care (7) Altered mental status: Code(s): R41.82 - Altered mental status, unspecified Status: Acute Assessment and Plan: mental status is overall improved likely secondary to UTI patient does have chronic memory deficit and is established with a memory care physician. patient is near his baseline at this time Time Spent With Patient Time: 60 minutes Time with patient: Greater than 35 minutes Subjective Date/time seen: 12/21/22 16:47 Interval history: Date of service: 12/20/22 Gregory Scherer is a 77-year-old male with an extensive medical history to include chronic back pain with history of laminectomy and active morphine pain pump and spinal cord stimulator implant,? peripheral vascular disease and chronic right foot wound established with podiatry and vascular surgery with questionable reports of bone infection currently on oral antibiotics for 1 month, scheduled to see ID in 2 weeks, coronary artery disease s/p angioplasty and cardiac stents, chronic UTIs, tobacco abuse, hypertension, hyperlipidemia, subclavian steal syndrome s/p subclavian bypass, and suspected dementia followed by memory care but not formally diagnosed, and multiple other medical problems who is seen in follow-up for left hip fracture. patient states he is doing fairly well today. He does complain of pain that he rates as 8/10. When asked where his pain is, the patient is unable t
--- NOTE | 2022-12-21 17:33 | PM.IMHP ---
H&P: HPI History of Present Illness Date/Time: 12/21/22 17:33 Chief Complaint: wound to the right posterior heel Review of Systems Review of Systems: No F/C/N/V. No right heel pain. [facility] Past Medical History Medical History Abnormal findings on esophagogastroduodenoscopy (EGD) .03.09 paula's esophagus/ path pending esophageal web bougied Acute sepsis Anxiety Arthritis, lumbar spine Barretts esophagus BPH w/o urinary obs/LUTS CAD (coronary artery disease) Carpal tunnel syndrome Chronic back pain with active pain pump Chronic UTI DDD (degenerative disc disease) Delirium due to general medical condition Depression Dextroscoliosis Diastolic dysfunction Elevated blood pressure reading without diagnosis of hypertension Elevated troponin Encounter to establish care Esophageal web egd 07.26.20 bougied Esophagitis Follow up GERD (gastroesophageal reflux disease) Heel pain History of angina History of heart attack Hypercholesteremia Hyperlipidemia, unspecified Hypertension Infectious encephalopathy Left cataract Nicotine dependence, cigarettes, uncomplicated Nicotine dependence, unspecified, uncomplicated Normocytic anemia Occlusion and stenosis of bilateral carotid arteries On fdc drug therapy Open wound of right heel Other intervertebral disc degeneration, thoracic region Personal history of nicotine dependence Pneumonia PVD (peripheral vascular disease) Sleep apnea Spinal cord stimulator status Spinal stenosis 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 Urethral stricture dilated UTI (urinary tract infection) Vitamin B6 deficiency Vitamin D deficiency Surgical History Surgical History History of angioplasty History of appendectomy (~1975) History of circumcision (~12/2021) History of laminectomy (~01/13/19) History of repair of right rotator cuff (~1998) Hx of cardiac cath with 3 stents Family History Family History Grandparent Diabetes mellitus Mother Family history of cardiovascular disease Acute myocardial infarction Hyperlipidemia Father Family history of Alzheimer's disease Sibling Alive and well Social History Social History Social History: lives at home with . PCP is Dr. Israel Smoking packs per day: 1 Smoking cigarettes per day: 20.0 Years smoked: 50 Smoking pack-years: 50.00 Smoking status: Former smoker Tobacco type: cigarettes Second hand tobacco smoke exposure: Yes Alcohol intake: current Drinks per week: 0 Alcohol use details: Social use Substance use: never Substance use type: does not use Lack of Transportation: No Lack of Food: Never True Current Housing: I Have Housing Concerned About Future Housing: No Difficulty Paying Gas/Electric Bills: Decline to Answer Difficulty Paying for Meds: Decline to Answer Currently Unemployed: Decline to Answer Education: Decline to Answer Difficulty w/ Childcare or Family Care: No Living arrangements: with family Occupation/Education: retired Gender identity (if verbalized by the patient): Male Spiritual care concerns: No Agree to blood products: Yes Meds Home Medications and Allergies Home Medications Medication Instructions Recorded Confirmed Type hydrocodone 10 mg-acetaminophen 1 tablet PO TID PRN Pain 08/14/19 12/19/22 History 325 mg tablet cholecalciferol (vitamin D3) 25 25 mcg PO DAILY 07/23/20 12/19/22 History mcg (1,000 unit) capsule (Vitamin D3) cyanocobalamin (vitamin B-12) 1,000 mcg PO DAILY 07/23/20 12/19/22 History 1,000 mcg tablet morphine See Rx Instructions .Route .COMPLEX 07/23/20 12/19/22 History potassium 99 mg tablet 99 mg PO DAILY 07/23/20 12/19/22 History trimet
[2022-12-21 20:00] VITALS: PULSE 80; PULSE 86; RESP 18; O2SAT 97
[2022-12-21] MEDS: ATORVASTATIN 20 MG TABLET PO (20:43)
[2022-12-22] VITALS: PULSE 75
[2022-12-22] MEDS: oxyCODONE HCL (*CRX) 5 MG TAB IR PO ×4 (01:54→13:23)
[2022-12-22 04:00] VITALS: PULSE 96
[2022-12-22] MEDS: ACETAMINOPHEN 500 MG TABLET 1000 MG PO ×2 (05:29→12:41)
--- NOTE | 2022-12-22 06:47 | PM.PNORT ---
Subjective Subjective Date/Time Seen: 12/22/22 06:47 postop day 3 patient is alert. Dressings are dry. Morning labs have been ordered. Care coordination is working on rehab placement at this point. Discharge instructions have been completed under orthopedic standpoint as well as medications. He may be transferred when placement is available. Objective Data Vital Signs Vital Signs: Vital Signs - 24 hr 12/21/22 08:30 12/21/22 08:30 12/21/22 12:00 Temperature Pulse Rate 69 88 Respiratory Rate Blood Pressure Pulse Oximetry Oxygen Delivery Room Air 12/21/22 14:35 12/21/22 20:00 12/21/22 20:00 Temperature 36.8 C Pulse Rate 80 86 80 Respiratory Rate 18 18 Blood Pressure 120/62 Pulse Oximetry 97 97 Oxygen Delivery Room Air 12/22/22 00:00 12/22/22 04:00 Temperature Pulse Rate 75 96 Respiratory Rate Blood Pressure Pulse Oximetry Oxygen Delivery Intake/Output Intake/Output: Intake & Output 12/19/22 12/20/22 12/21/22 12/22/22 23:59 23:59 23:59 23:59 Intake Total 2620 1470 1510 Output Total 1070 2300 Balance 1550 -830 1510 Meds/Results Medications: Active Medications Generic Name Dose Route Start Last Admin Trade Name Thomasq PRN Reason Stop Dose Admin Acetaminophen 1,000 mg 12/19/22 18:00 12/22/22 05:29 Acetaminophen 500 Mg Tablet PO 1,000 mg Q6HR SHAHRIAR Administration Apixaban 2.5 mg 12/19/22 21:00 12/21/22 20:43 Apixaban 2.5 Mg Tablet PO 2.5 mg Q12HR SHAHRIAR Administration Aspirin 81 mg 12/20/22 08:00 12/21/22 08:47 Aspirin 81 Mg Chewable Tablet PO 81 mg DAILY@0800 SHAHRIAR Administration Atorvastatin Calcium 20 mg 12/19/22 21:00 12/21/22 20:43 Atorvastatin 20 Mg Tablet PO 20 mg HS SHAHRIAR Administration Collagenase 1 applic 12/21/22 09:00 12/21/22 16:42 Collagenase Oint 30 Gm Tube TOPICAL 1 applic DAILY SHAHRIAR Administration Cyanocobalamin 1,000 mcg 12/19/22 09:00 12/21/22 08:47 Cyanocobalamin 1,000 Mcg Tablet PO 1,000 mcg DAILY SHAHRIAR Administration Doxycycline Hyclate 100 mg 12/20/22 21:00 12/21/22 20:43 Doxycycline Hyclate 100 Mg Tablet PO 100 mg Q12HR SHAHRIAR Administration Duloxetine HCl 20 mg 12/19/22 10:00 12/21/22 20:43 Duloxetine Hcl 20 Mg Capsule.Dr PO 20 mg Q12HR SHAHRIAR Administration Gabapentin 200 mg 12/19/22 10:00 12/21/22 16:42 Gabapentin 100 Mg Capsule PO 200 mg BID SHAHRIAR Administration Home Med 1 each 12/19/22 21:00 12/21/22 20:51 Home Medicationnonformulary Drug (Teriparatide [Forteo] 20 Mcg/Dose (600mcg/2.4ml) Pen Inj SUB-Q 01/18/23 20:59 1 each HS SHAHRIAR Administration Ceftriaxone Sodium 1 gm in 50 mls @ 100 mls/hr 12/19/22 21:00 12/21/22 21:13 Rocephin 1 Gm/Ns 50 Ml IVPB Infused Q24H SHAHRIAR Infusion Miscellaneous Information 0 each 12/19/22 00:01 Trospium Is Nonformulary - Can Patient Bring From Home? XX 01/18/23 00:00 CLARIFY SHAHRIAR Morphine Sulfate 2 mg 12/19/22 16:53 Morphine Sulfate (*Crx) 2 Mg/Ml Inj IV PUSH Q1H PRN Pain Rated 7-10 Naloxone HCl 0.1 mg 12/19/22 16:53 Naloxone Hcl 0.4 Mg/Ml Vial IV PUSH Q2M PRN Opiate Reversal Nitroglycerin 0.4 mg 12/19/22 09:50 Nitroglycerin Sl 0.4 Mg Tablet SUBLINGUAL Q5MIN PRN Chest Pain Non-Formulary Medication 20 mg 12/19/22 17:00 Trospium PO 01/18/23 16:59 BID SHAHRIAR Non-Formulary Medication 99 mg 12/20/22 09:00 Potassium PO 01/19/23 08:59 DAILY SHAHRIAR Oxycodone HCl 5 mg 12/19/22 21:00 12/22/22 05:30 Oxycodone Hcl (*Crx) 5 Mg Tab Ir PO 5 mg Q4HR SHAHRIAR Administration Oxycodone HCl 5 mg 12/19/22 16:53 Oxycodone Hcl (*Crx) 5 Mg Tab Ir PO Q4H PRN Pain Rated 4-10 Pantoprazole Sodium 40 mg 12/19/22 10:00 12/21/22 20:43 Pantoprazole 40 Mg Tablet PO 40 mg Q12HR SHAHRIAR Administration Polyethylene Glycol 17 gm 12/20/22 09:00 12/21/22 08:48 Polyethylene Glycol 3350 17 Gm Powd.Pack PO 17
[2022-12-22 07:10] LABS: Basophils Absolute Auto 0.1 K/mm3 (0.0-0.1); Basophils Percent Auto 0.7 % (0.2-1.2); Eosinophils Absolute Auto 0.4 K/mm3 (0-0.3); Eosinophils Percent Auto 4.3 % (0-4.4); Hematocrit 25.3 % (42.0-52.0); Hemoglobin 8.2 g/dL (14.0-18.0); Immature Granulocyte Absolute 0.03 K/mm3 (0.00-0.031); Immature Granulocyte Percent A 0.3 % (0-0.5); Lymphocytes Absolute Auto 1.73 K/mm3 (0.9-3.2); Lymphocytes Percent Auto 17.1 % (18.3-44.2); Mean Corpuscular HGB Conc 32.4 g/dl (32-36); Mean Corpuscular Hemoglobin 31.3 pg (26-34); Mean Corpuscular Volume 96.6 fl (80-100); Mean Platelet Volume 9.2 fl (7.4-10.4); Monocytes Absolute Auto 1.1 K/mm3 (0.1-0.6); Monocytes Percent Auto 10.9 % (2.6-8.5); Neutrophils Absolute Auto 6.8 K/mm3 (1.3-6.7); Neutrophils Percent Auto 66.7 % (45.5-73.1); Platelet Count Result 211 k/mm3 (150-375); Red Blood Count 2.62 M/mm3 (4.6-6.20); Red Cell Distribution Width 13.9 % (11.5-14.5); White Blood Count 10.1 K/mm3 (4.5-10.0)
[2022-12-22 07:20] LABS: Anion Gap 2 mmol/L (8-16); Blood Urea Nitrogen 16 mg/dL (9-20); Calcium 9.1 mg/dL (8.4-10.2); Carbon Dioxide 35 mmol/L (22-30); Chloride 98 mmol/L (98-107); Estimated CRCL calculation 91 ml/min; Estimated Glomerular Filt Rate > 60; Glucose 110 mg/dL (65-110); Potassium 4.2 mmol/L (3.4-5.0); Sodium 135 mmol/L (137-145)
[2022-12-22 08:00] VITALS: PULSE 74
[2022-12-22] MEDS: SENNA/DOCUSATE SODIUM TABLET 2 TAB PO (08:08)
[2022-12-22] MEDS: DOXYCYCLINE HYCLATE 100 MG TABLET PO (08:08)
[2022-12-22] MEDS: DULoxetine HCL 20 MG CAPSULE.DR PO (08:08)
[2022-12-22] MEDS: PANTOPRAZOLE 40 MG TABLET PO (08:08)
[2022-12-22] MEDS: CHOLECALCIFEROL 1,000 UNITS TABLET 1000 UNITS PO (08:09)
[2022-12-22] MEDS: CYANOCOBALAMIN 1,000 MCG TABLET 1000 MCG PO (08:09)
[2022-12-22] MEDS: GABAPENTIN 100 MG CAPSULE 200 MG PO (08:09)
[2022-12-22] MEDS: APIXABAN 2.5 MG TABLET PO (08:09)
[2022-12-22] MEDS: polyethylene glycoL 3350 17 GM POWD.PACK PO (08:10)
[2022-12-22] MEDS: COLLAGENASE OINT 30 GM TUBE 1 APPLIC TOPICAL (08:10)
[2022-12-22] MEDS: ASPIRIN 81 MG CHEWABLE TABLET PO (08:10)
[2022-12-22 11:59] VITALS: BP 135/87; PULSE 61; RESP 16; TEMP 36.9; O2SAT 97
[2022-12-22 12:00] VITALS: PULSE 78
--- NOTE | 2022-12-22 12:19 | P.DS_ITS ---
DS: Admitting Diagnosis Discharge Date 12/22/2022 Admitting Diagnosis Left hip fracture DS: Discharge Diagnosis Discharge Diagnosis (1) Closed intertrochanteric fracture of left hip: Code(s): S72.142A - Displaced intertrochanteric fracture of left femur, initial encounter for closed fracture Status: Acute Assessment and Plan: secondary to mechanical fall. Hip/pelvis x-ray revealed acute intertrochanteric fracture of the left femur * appreciate orthopedic surgery consultation. * patient underwent ORIF on 12/19/2022. Tolerated the procedure well * appreciate PT/OT eval. continue therapy at SNF * supportive care provided. continue analgesics as needed (2) Acute UTI: Code(s): N39.0 - Urinary tract infection, site not specified Status: Acute Assessment and Plan: Patient with history of frequent UTIs maintained on daily trimethoprim. UA abnormal on presentation with positive nitrates and 3+ leuk esterase * urine culture with growth of >100k E coli * received IV ceftriaxone based on susceptibility report * continue p.o. cefdinir to complete 7 day course * hold prophylactic trimethoprim while on antibiotics (3) Fall: Code(s): W19.XXXA - Unspecified fall, initial encounter Status: Acute Assessment and Plan: sounds to be a mechanical fall. Patient did not report precipitating symptoms, however is a poor historian * unclear if the patient hit his head, however head CT with no acute finding * implement fall precautions (4) Wound of right foot: Code(s): S91.301A - Unspecified open wound, right foot, initial encounter Status: Acute Assessment and Plan: patient with chronic right foot wound managed by podiatry and vascular surgery, awaiting ID evaluation as an outpatient * discussed case with patient's vascular surgeon. recommends continuing p.o. doxycycline 100 mg q.12 hours as an outpatient and continue with dressing changes as instructed * patient has IV follow-up scheduled for 12/29/2022 (5) CAD (coronary artery disease): Code(s): I25.10 - Atherosclerotic heart disease of [place] coronary artery without angina pectoris Status: Acute Assessment and Plan: no acute issues * patient was evaluated by Cardiology prior to surgery * continue to follow-up with his primary preparer samples and repairs (6) Chronic back pain: Code(s): M54.9 - Dorsalgia, unspecified; G89.29 - Other chronic pain Status: Acute Assessment and Plan: ongoing issue, patient is established with neurosurgery. * Patient does have an active pain pump * also has an implanted TENS unit which is scheduled for removal and r eplacement in January * continue supportive care (7) Altered mental status: Code(s): R41.82 - Altered mental status, unspecified Status: Resolved Assessment and Plan: resolved. Likely secondary to UTI * patient does have chronic memory deficit and is established with a memory care physician. * patient returned to baseline mental status with appropriate treatment for UTI DS: Summary Hospital Course Hospital Course: Date of admission: 12/18/2022 Date of discharge: 12/22/2022 Gregory Scherer is a 77-year-old male with an extensive medical history to include chronic back pain with history of laminectomy and active morphine pain pump and spinal cord stimulator implant,? peripheral vascular disease and chronic right foot wound established with podiatry and vascular surgery with qu
--- NOTE | 2022-12-22 12:19 | PM.DS ---
DS: Admitting Diagnosis Discharge Date 12/22/2022 Admitting Diagnosis Left hip fracture DS: Discharge Diagnosis Discharge Diagnosis (1) Closed intertrochanteric fracture of left hip: Code(s): S72.142A - Displaced intertrochanteric fracture of left femur, initial encounter for closed fracture Status: Acute Assessment and Plan: secondary to mechanical fall. Hip/pelvis x-ray revealed acute intertrochanteric fracture of the left femur appreciate orthopedic surgery consultation. patient underwent ORIF on 12/19/2022. Tolerated the procedure well appreciate PT/OT eval. continue therapy at SNF supportive care provided. continue analgesics as needed (2) Acute UTI: Code(s): N39.0 - Urinary tract infection, site not specified Status: Acute Assessment and Plan: Patient with history of frequent UTIs maintained on daily trimethoprim. UA abnormal on presentation with positive nitrates and 3+ leuk esterase urine culture with growth of >100k E coli received IV ceftriaxone based on susceptibility report continue p.o. cefdinir to complete 7 day course hold prophylactic trimethoprim while on antibiotics (3) Fall: Code(s): W19.XXXA - Unspecified fall, initial encounter Status: Acute Assessment and Plan: sounds to be a mechanical fall. Patient did not report precipitating symptoms, however is a poor historian unclear if the patient hit his head, however head CT with no acute finding implement fall precautions (4) Wound of right foot: Code(s): S91.301A - Unspecified open wound, right foot, initial encounter Status: Acute Assessment and Plan: patient with chronic right foot wound managed by podiatry and vascular surgery, awaiting ID evaluation as an outpatient discussed case with patient's vascular surgeon. recommends continuing p.o. doxycycline 100 mg q.12 hours as an outpatient and continue with dressing changes as instructed patient has IV follow-up scheduled for 12/29/2022 (5) CAD (coronary artery disease): Code(s): I25.10 - Atherosclerotic heart disease of [place] coronary artery without angina pectoris Status: Acute Assessment and Plan: no acute issues patient was evaluated by Cardiology prior to surgery continue to follow-up with his primary nurse outreach case manager (6) Chronic back pain: Code(s): M54.9 - Dorsalgia, unspecified; G89.29 - Other chronic pain Status: Acute Assessment and Plan: ongoing issue, patient is established with neurosurgery. Patient does have an active pain pump also has an implanted TENS unit which is scheduled for removal and replacement in May continue supportive care (7) Altered mental status: Code(s): R41.82 - Altered mental status, unspecified Status: Resolved Assessment and Plan: resolved. Likely secondary to UTI patient does have chronic memory deficit and is established with a memory care physician. patient returned to baseline mental status with appropriate treatment for UTI DS: Summary Hospital Course Hospital Course: Date of admission: 12/18/2022 Date of discharge: 12/22/2022 Gregory Scherer is a 77-year-old male with an extensive medical history to include chronic back pain with history of laminectomy and active morphine pain pump and spinal cord stimulator implant,? peripheral vascular disease and chronic right foot wound established with podiatry and vascular surgery with questionable reports of bone infection currently on oral antibiotics for 1 month, scheduled to see ID in 2 weeks, coronary artery disease s/p angioplasty and cardiac stents, chronic UTIs, tobacco abuse, hypertension, hyperlipidemia, subclavian steal syndrome s/p subclavian bypass, and suspected dementia followed by memory care but not formally diagnosed, and multiple other medical problems who presented to the emergency department on
[2022-12-22 14:00] VITALS: BP 136/56; PULSE 71; RESP 16; TEMP 36.6; O2SAT 96
== END 2022-12-22 16:45 | DRG 481 ==
LOC: ANHED 21:13 → ANH3MED 22:39
PROVIDERS: Orthopaedic Surgery; Physician Assistant Surgical; Admitting Provider Internal Medicine; Emergency Provider Emergency Medicine; PCP Internal Medicine; Visit Provider Physician Assistant
PROC: 0QS704Z Reposition Left Upper Femur with Internal Fixation Device, Open Approach (ICD-10-PCS; CPT 27245; principal; 2022-12-19 12:30)
DX: S72.142A Displaced intertrochanteric fracture of left femur, initial encounter for closed fracture (principal); N39.0 Urinary tract infection, site not specified; B96.20 Unspecified Escherichia coli [E. coli] as the cause of diseases classified elsewhere; T14.8XXA Other injury of unspecified body region, initial encounter; I25.10 Atherosclerotic heart disease of native coronary artery without angina pectoris; M54.9 Dorsalgia, unspecified; G89.29 Other chronic pain; I25.2 Old myocardial infarction; G47.33 Obstructive sleep apnea (adult) (pediatric); I10 Essential (primary) hypertension; E78.5 Hyperlipidemia, unspecified; I35.0 Nonrheumatic aortic (valve) stenosis; Z95.5 Presence of coronary angioplasty implant and graft; Z87.891 Personal history of nicotine dependence; W19.XXXA Unspecified fall, initial encounter
CPT/HCPCS: 36415; 51702; 70450; 71045; 72125; 73502; 80048; 80053; 81001; 85025; 85027; 85610; 85730; 86850; 86900; 86901; 87077; 87086; 87186; 93005; 96365; 96375; 96376; 97110; 97161; 97165; 97530; 97535; 99199; 99285; A9270; C1713; G0378; J0131; J0360; J0690; J0696; J1100; J1170; J2270; J2405; J2704; J2710; J3010; J3370; J7030; J7120

== ENCOUNTER 2023-01-03 09:49 | Emergency (ER) | payer OTHER, MEDICARE, SELFPAY ==
--- NOTE | ~2023-01-03 | US_ITS ---
EXAMINATION: US venous doppler [facility] DATE: 01/03/2023 10:30 INDICATION: Lower limb pain TECHNIQUE: Lim scale images without and with compression and Doppler images of the left lower extrem ity veins were obtained. COMPARISON: None FINDINGS: The left common femoral vein, profunda femoral vein, femoral vein, popliteal vein, peroneal trunk, posterior tibial veins, and greater saphenous vein are patent. IMPRESSION: 1. Patent left lower extremity veins. No evidence of deep venous thrombosis. Reviewed, dictated and finalized at location A.
[2023-01-03 09:32] VITALS: BP 118/79; PULSE 64; RESP 16; TEMP 36.8; O2SAT 100
--- NOTE | 2023-01-03 09:55 | ED.EXTPRO ---
HPI - Extremity Problem General Chief complaint: Extremity Problem,Nontraumatic <Ramon Nichols PA-C - Last Filed: 01/03/23 11:25> Stated complaint: leg pain <TYSHAWN Lee Last Filed: 01/03/23 11:25> Source: patient <Ramon Nichols PA-C - Last Filed: 01/03/23 11:25> Mode of arrival: ambulatory <Ramon Nichols PA-C - Last Filed: 01/03/23 11:25> Limitations: no limitations <Ramon Nichols PA-C - Last Filed: 01/03/23 11:25> History of Present Illness HPI Narrative: This is a 77-year-old male who presents to the ED via EMS from rehab facility for DVT rule out. He had a recent hip fracture and surgery a couple of weeks ago. His rehab hospital staff thought that his left lower extremity looked red and swollen so they ordered a DVT yesterday. He came to the hospital yesterday but the ultrasound department was not staffed. He is returning today to have this order done. He is completely asymptomatic. Denies calf pain, shortness of breath, chest pain. He is on Eliquis. <Ramon Nichols PA-C - Last Filed: 01/03/23 11:25> Related Data Home medications: Home Medications Medication Instructions Recorded Confirmed hydrocodone 10 mg-acetaminophen 1 tablet PO TID PRN Pain 08/14/19 12/25/22 325 mg tablet cholecalciferol (vitamin D3) 25 50 mcg PO DAILY 07/23/20 12/25/22 mcg (1,000 unit) capsule (Vitamin D3) cyanocobalamin (vitamin B-12) 1,000 mcg PO DAILY 07/23/20 12/25/22 1,000 mcg tablet morphine See Rx Instructions .Route .COMPLEX 07/23/20 12/25/22 potassium 99 mg tablet 99 mg PO DAILY 07/23/20 12/25/22 trimethoprim 100 mg tablet 100 mg PO QAM 07/23/20 12/25/22 aspirin 81 mg tablet 81 mg PO DAILY 12/31/21 12/25/22 nitroglycerin 0.4 mg sublingual 0.4 mg sublingual Q5-10M PRN Chest 12/31/21 12/25/22 tablet Pain duloxetine 20 mg capsule,delayed 20 mg PO BID 12/19/22 12/25/22 release gabapentin 100 mg capsule 200 mg PO BID 12/19/22 12/25/22 teriparatide 20 mcg/dose (600 20 mcg subcut HS 12/19/22 12/25/22 mcg/2.4 mL) subcutaneous pen injector (Forteo) trospium 20 mg tablet 20 mg PO BID 12/19/22 12/25/22 atorvastatin 20 mg tablet 20 mg PO DAILY 12/25/22 12/25/22 cetirizine 10 mg tablet 10 mg PO DAILY PRN Allergy Symptoms 12/25/22 12/25/22 diclofenac sodium 75 mg 150 mg PO BID 12/25/22 12/25/22 tablet,delayed release lidocaine 4 % topical patch 1 patch topical DAILY PRN Pain 12/25/22 12/25/22 (Salonpas (lidocaine)) pyridoxine (vitamin B6) 100 mg 100 mg PO DAILY 12/25/22 12/25/22 tablet sennosides 8.6 mg tablet (senna) 17.2 mg PO QAM 12/25/22 12/25/22 sennosides 8.6 mg tablet (senna) 25.8 mg PO HS 12/25/22 12/25/22 zolpidem 10 mg tablet 10 mg PO HS PRN Sleep 12/25/22 12/25/22 <Ramon Nichols PA-C - Last Filed: 01/03/23 11:25> Allergies/Adverse reactions: Allergies Allergy/AdvReac Type Severity Reaction Status Date / Time No Known Allergies Allergy Verified 10/29/22 09:43 <Ramon Nichols PA-C - Last Filed: 01/03/23 11:25> Review of Systems Review of Systems: CONSTITUTIONAL: Denies fever, chills, or sweats. EYES: Denies visual changes, redness, or discharge. ENT: Denies rhinorrhea, congestion, sore throat, or otalgia. CARDIOVASCULAR: Denies chest pain, palpitations, or edema. RESPIRATORY: Denies cough or dyspnea. GASTROINTESTINAL: Denies abdominal pain, nausea, vomiting, or diarrhea. GENITOURINARY: Denies dysuria or hematuria. SKIN: Denies rash or itching. MUSCULOSKELETAL: Endorses left leg swelling and redness, (resolved) Denies back pain, joint pain, or myalgia. NEUROLOGIC: Denies headache, numbness, dizziness, or weakness. PSYCHIATRIC: Denies anxiety or depression. 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
--- NOTE | 2023-01-03 11:46 | PC.NURSE ---
Report called to Yo[facility]. All questions answered. Pt on way back to facility with EMS.
[2023-01-03 11:48] VITALS: BP 121/74; PULSE 66; RESP 18; O2SAT 99
== END 2023-01-03 11:50 | disposition home or self-care (01) ==
PROVIDERS: Emergency Provider Physician Assistant; PCP Internal Medicine
DX: M79.662 Pain in left lower leg (principal); L89.90 Pressure ulcer of unspecified site, unspecified stage; F41.9 Anxiety disorder, unspecified; M19.90 Unspecified osteoarthritis, unspecified site; I25.10 Atherosclerotic heart disease of native coronary artery without angina pectoris; F32.A Depression, unspecified; K21.9 Gastro-esophageal reflux disease without esophagitis
CPT/HCPCS: 93971; 99284

== ENCOUNTER 2023-01-06 09:17 | Outpatient (CLI) | payer MEDICARE, SELFPAY ==
--- NOTE | ~2023-01-06 | CT_ITS ---
Noncontrast CT scan of the right foot CLINICAL HISTORY: Osteomyelitis TECHNIQUE: Axial noncontrast imaging of the foot was performed. Sagittal coronal reformatted images w ere constructed. Dose reduction technique was used on this scan by utilizing automated exposure contr ol and iterative reconstruction technique. The dose-length product (DLP) was 576.25 mGy-cm. Findings: No fracture or dislocation seen. No bony destructive change or cortical erosive change seen to suggest osteomyelitis. There is mild degenerative change at the sesamoid first metatarsal articul ations and first metatarsophalangeal joint. Remaining joint spaces appear preserved. No gross soft tissue abnormality seen. No fluid collection or soft tissue mass seen. Visualized soft tissue structures are grossly intact. IMPRESSION: No CT evidence for osteomyelitis. Consider MR for more sensitive evaluation, as clinically indicated. Mild degenerative changes about the first MTP joint region. Reviewed, dictated and finalized at [facility].
== END 2023-01-06 09:18 | disposition home or self-care (01) ==
PROVIDERS: PCP Internal Medicine; Visit Provider Internal Medicine Infectious Disease
DX: M19.071 Primary osteoarthritis, right ankle and foot (principal)
CPT/HCPCS: 73700

== ENCOUNTER 2023-05-04 09:31 | Outpatient (CLI) | payer MEDICARE, SELFPAY ==
--- NOTE | ~2023-05-04 | CT_ITS ---
EXAMINATION: CT foot RT wo con DATE: 05/04/2023 10:09 INDICATION: Diabetic ulcer at the right foot TECHNIQUE: High resolution computed tomography (CT) of the right foot was performed without intraveno us contrast. Additional sagittal and coronal reconstructions were performed. Automated exposure contr ol and iterative reconstruction technique were employed. The dose-length product was 716.59 mGy-cm. COMPARISON: 01/06/2023 FINDINGS: Bone alignment is normal. No fracture. No cortical erosions or periosteal reaction to suggest osteomy elitis. Small Achilles and plantar calcaneal spurs. Mild polyarticular osteoarthritis at the right an kle, subtalar, talonavicular and, first metatarsophalangeal and several tarsal metatarsal and interph alangeal joints. Soft tissues are unremarkable. No soft tissue gas or radiopaque foreign bodies. No a nkle joint effusion. IMPRESSION: 1. 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 No findings to suggest oste omyelitis. Reviewed, dictated and finalized at location A. IMPRESSION: 1. 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 No fi ndings to suggest osteomyelitis.
[2023-05-04 10:57] LABS: Alanine Aminotransferase 25 U/L (6-50); Albumin Level 4.2 g/dL (3.5-5.1); Alkaline Phosphatase 62 U/L (38-126); Anion Gap 7 mmol/L (8-16); Aspartate Amino Transferase 26 U/L (17-59); Bilirubin,Total 0.4 mg/dL (0.2-1.3); Blood Urea Nitrogen 19 mg/dL (9-20); Calcium 9.7 mg/dL (8.4-10.2); Carbon Dioxide 32 mmol/L (22-30); Chloride 99 mmol/L (98-107); Estimated Glomerular Filt Rate > 60; Glucose 89 mg/dL (65-110); Potassium 4.2 mmol/L (3.4-5.0); Sodium 138 mmol/L (137-145)
[2023-05-04 11:28] LABS: Erythrocyte Sedimentation Rate 43 mm/hr (0-20)
== END 2023-05-04 09:32 | disposition home or self-care (01) ==
PROVIDERS: PCP Internal Medicine; Visit Provider Internal Medicine Infectious Disease
DX: E13.621 Other specified diabetes mellitus with foot ulcer (principal); L97.519 Non-pressure chronic ulcer of other part of right foot with unspecified severity; R74.01 Elevation of levels of liver transaminase levels; M19.071 Primary osteoarthritis, right ankle and foot
CPT/HCPCS: 36415; 73700; 80053; 85652

== ENCOUNTER 2023-09-29 13:00 | Outpatient (RCR) | payer MEDICARE, SELFPAY ==
--- NOTE | 2023-08-04 10:09 | OPREHPOC ---
Outpatient Therapy Plan of Care This is a Multidisciplinary Plan of Care that may contain components documented by all disciplines (PT, OT, and ST.) PT Problem 1 PT Problem #1 Knowledge Deficit PT Goal 1 Goal * indep with HEP PT Problem 2 PT Problem #2 Pain PT Goal 1 Goal * pt report pain rating of 8/10 with increased activity level PT Problem 3 PT Problem #3 Impaired Flexibility PT Goal 1 Goal to improve standing/upright posture, increase ROM in supine: 1* R hip extension 0' 2* R knee extension 0' 3* L hip extension (-5') 4* L knee extension (-5') PT Problem 4 PT Problem #4 Impaired Strength PT Goal 1 Goal 1* pt able to tolerate 40 minutes of aquatic exercises 2* pt report at home, standing/walking tolerance of 15 minutes 3* pt perform 20 reps of R and L supine exercises 4* pt transfer sit to supine without use of UE for L LE PT Problem 5 PT Problem #5 Impaired Functional Mobil PT Goal 1 Goal 1* TUG with wheeled walker 15 seconds 2* sit/stand with use of 1 UE 3* 2 minute walking test distance of 375' 4* Tinetti balance/gait score of 21/28 5* pt able to static stand, without use of UE x 10 seconds
--- NOTE | 2023-08-04 10:09 | PTOPEVAL1 ---
Assessment and note entered by Katie Aaron, PT Evaluation Information Assessment Status Evaluation Diagnosis chronic pain,back pain,s/p L femur fx,spinal stenosis,weakness,decr mobilit Subjective Information to see neuro dr in Sep, for possible lumbar surgery; history includes neck and back surgery with pain; L femur fracture with ORIF December- short stay at [place], then had neck surgery, return to [place], returned home February, then [facility] therapy; no falls in the past 6 months; have lost about 50 # in the past 4-5 years; is not doing any exercises at home; goes to chiropractor 3x/wk for dry needling over L scapular muscle that is tight; ACTIVITY: use wheeled walker, large base quad cane all the time; ranch home with few entry steps, does not go into the basement; is going to manager personal at fitness center-- just started there for strengthening; GOAL: get stronger, move and walk better, not have as much pain; Reported Pain Level Pain Score 9: Self Report Additional Pain Score Comments pain in L shoulder, low back, L hip, radicular pain into L LE to foot; reported walking/standing tolerance 5 minutes; no awakening from sleep due to back pain Assessment PT Clinical Summary Franklin has multiple diagnosis: chronic pain, weakness decreased mobility. History includes neck and back surgery, pain pump, in November had ORIF L femur and neck surgery after fracture. , Dianna is supportive. He uses a rollator or quad cane. Self assessment functional score of 50% limitation in activity level. In September he has an appointment with his neurologist about possible lumbar surgery. With the evaluation: he has weakness of both legs, L weaker than R, with decreased extension ROM of both hips and knees; poor standing balance-- can hold 3 seconds and has loss of balance; poor standing position of trunk and legs; Tinetti balance score of 10/28; TUG of 19 seconds and 2 minute walking test distance of 310'. Skilled PT services are
--- NOTE | 2023-08-10 11:10 | PCPTNOTE ---
Pt cancelled session today due to illness.
--- NOTE | 2023-09-08 12:06 | PTOPEVAL1 ---
Assessment and note entered by Richard Hubbard Evaluation Information Assessment Status Progress Diagnosis chronic pain, back pain, s/p L femur fx, spinal stenosis, weakness Subjective Information Pt. reports that he has improved slightly since beginning therapy. 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 He reports that he is able to stand for 10-15 minutes while at home, but improvements in standing endurance are minimal. He states that he still desires to use a cane and would like to be able to stand longer. He reports that he has been able to return to short distance driving since beginning PT. He states that he is visiting with the neurosurgeon on 10/06/23 Reported Pain Level Pain Score 7: Self Report Assessment PT Clinical Summary Pt. has attended a total of 9 treatment session consisting of land based treatment and aquatic rehab. In this time pt. has demonstrated slight improvements in funcitonal testing and l.e. strength. He continues to present as a high fall risk with funcitonal testing. He continues to present with poor postural awareness because of reduced flexibility and postural awareness. At this time recommend continued skilled PT to continue to improve standing endurance and strength to allow the pt. to continue to improve endurance with standing activities. Plan of Care Interventions Gait Training,Manual Therapy,Neuro Re-education, Therapeutic Activities,Therapeutic Exercise PT Services Indicated Yes Treatment Frequency and 1x/week of aquatic rehab and 1x/week of land based Duration rehab x 6 visits continuing focus on improving strength and standing enduraance. These treatments will address the objective and functional deficits as defined above. The patient will be advanced safely and appropriately in order for the patient to progress towards his/her prior level of function. Additional exercises will be introduced and as well as a comprehensive home exercise program upon discharge, if needed, ?to ensure carryover of functional gains achieved in the clinic. This treatment plan has been reviewed and agreement upon by the patient.
--- NOTE | 2023-09-29 14:16 | PTOPDC ---
Assessment and note entered by Richard Hubbard Discharge Information Assessment Status Discharge Diagnosis chronic pain, back pain, s/p L femur fx, spinal stenosis, weakness Subjective Information Pt. reports that he notices little change in regards to his pain. He states that he will meet with the neurosurgeon on 10/06/23. He reports that he still has difficulty with long periods of standing and cannot stand for any duration without his walker. He reports that he will continue with exercise at home and is ready for discharge. Reported Pain Level Pain Score 8: Self Report Assessment PT Clinical Summary At this time pt. demonstrates only mild improvements in regards to strength, endurance, gait and balance. He continues to present with impaired postural awareness indicating continued need for the walker due to displaced center of gravity. At this time encourage pt. to continue with his HEP and communicate with the surgeon to determine if surgery is indicated. Plan of Care PT Services Indicated D/C from PT to an independent HEP.
== END 2023-09-29 14:48 | disposition home or self-care (01) ==
LOC: ANHPT 13:00
PROVIDERS: PCP Internal Medicine; Visit Provider Internal Medicine
DX: M54.9 Dorsalgia, unspecified (principal); M48.00 Spinal stenosis, site unspecified; R53.1 Weakness; S72.142D Displaced intertrochanteric fracture of left femur, subsequent encounter for closed fracture with routine healing; G89.29 Other chronic pain; Z74.09 Other reduced mobility
CPT/HCPCS: 97110; 97113; 97140; 97162; 97530; 97750

== ENCOUNTER 2024-05-22 18:33 | Inpatient (IN) | payer MEDICARE, SELFPAY ==
[2024-05-22] VITALS (16 sets, daily range): BP systolic 111–135; BP diastolic 55–76; PULSE 77–89; RESP 15–20; TEMP 36.7; O2SAT 98–100
--- NOTE | ~2024-05-22 | XR_ITS ---
EXAMINATION: XR chest 2V DATE: 05/22/2024 20:45 INDICATION: Weakness TECHNIQUE: frontal and lateral views of the chest were obtained. COMPARISON: Chest radiograph dated 12/18/[address] dated 07/13/2022 FINDINGS: Unchanged mild reticular opacities at the bilateral costophrenic angles consistent with chronic inter stitial lung disease. No new airspace opacities, pulmonary edema, pleural effusion or pneumothorax. T he cardiomediastinal silhouette is normal. There are electronic devices projecting over the bilateral upper quadrants with leads extending 05/21/2024 soft tissues posterior to the upper back and shoulders and over the lower cervical spine. Instrumented lower cervical and cervicothoracic posterior spinal fusion. IMPRESSION: 1. Stable appearance of mild chronic interstitial lung disease at the bilateral costophrenic angles. No acute cardiopulmonary disease. Reviewed, dictated and finalized at location A.
--- NOTE | ~2024-05-22 | CT_ITS ---
EXAMINATION: CT brain wo con DATE: 05/22/2024 20:41 INDICATION: Altered mental status TECHNIQUE: Computed tomography (CT) of the head was performed without intravenous contrast. Sagittal and coronal reconstructions were performed. The mA was adjusted according to patient size. Iterative reconstruction technique was employed. The dose-length product was 1059.33 mGy-cm. COMPARISON: head CT dated 12/18/22 FINDINGS: No acute intracranial hemorrhage, acute infarction or abnormal extra axial fluid collection. There is moderate scattered white matter hypoattenuation consistent with chronic small vessel ischemic diseas e. Symmetric prominence of the sulci and ventricles consistent with moderate age-appropriate diffuse cerebral volume loss. No mass/mass effect. The orbits, paranasal sinuses and mastoid air cells are n ormal. IMPRESSION: 1. Age-related changes including moderate diffuse on loss and moderate scattered white matter hypoatt enuation consistent with chronic small vessel ischemic disease. No acute intracranial process. Reviewed, dictated and finalized at location A. IMPRESSION: 1. Age-related changes including moderate diffuse on loss and moderate scattere d white matter hypoattenuation consistent with chronic small vessel ischemic di sease. No acute intracranial process.
--- NOTE | ~2024-05-22 | CT_ITS ---
CT of the Abdomen and Pelvis, and lumbar spine: Indication: Back pain, leukocytosis Technique: 2.5 mm axial scans were obtained through the abdomen and pelvis following intravenous adm inistration of 100 cc of Omnipaque 350. Axial imaging of the lumbar spine was also performed, sagitta l and coronal reformations. Dose reduction technique was used on this scan by utilizing automated exp osure control and iterative reconstruction technique. The dose-length product (DLP) was 804.71 mGy-cm . Findings: Scans through the lung bases are unremarkable. There are a few very subtle hypodense hepatic structure, measuring up to approximately [address] diameter, nonspecific. The spleen, pancreas, gallbladder, and adrenal glands are within normal elrner its. Possible small bilateral nonobstructing renal stones versus renal vascular calcifications. Suspe cted subtle patchy decreased enhancement in the left kidney. There are extensive atherosclerotic calc ifications of the aorta and iliac vessels, with infrarenal abdominal aortic aneurysm measuring 4.2 cm in maximum diameter.. No lymphadenopathy. No bowel obstruction or bowel wall thickening. There is prominent stool at the rectum. Images through the pelvis were performed. There is probable diffuse urinary bladder wall thickening. No pelvic mass seen. No ascites. Lumbar spine findings: There are chronic mild compression deformities L4-L5. There is minimal grade 1 retrolisthesis of L5 over S1. There is 4 mm anterolisthesis of L2 over L3. At L1-L2, there is minimal disc bulge with moderate to advanced facet arthropathy. There is probable moderate central canal stenosis. There is moderate bilateral neural foraminal narrowing. At L2-L3, there is severe degenerative disc narrowing. Disc bulge and severe facet arthropathy result in probable moderate central canal stenosis. There is severe bilateral neural foraminal narrowing. L3-L4, there is severe degenerative disc disease. There is disc bulge and facet arthropathy, probable prior posterior decompression. There is probable moderate central canal stenosis. There is moderate to severe left neural foraminal narrowing, and severe right neural foraminal narrowing. At L4-L5, there is advanced facet arthropathy without disc bulge and probable prior posterior decompr ession. No lesia central canal stenosis. There is severe bilateral neural foraminal compromise. L5-S1, there is severe degenerative disc narrowing. There is disc bulge and severe facet arthropathy with prior posterior decompression. There is advanced bilateral neural foraminal narrowing. Impression: Suspected left pyelonephritis and cystitis. 4.2 cm infrarenal abdominal aortic aneurysm with extensive atherosclerotic calcification of the aorta and iliac vessels. Several subtle hypodense hepatic structure measuring up to 7 mm in greatest diameter. These are too s mall to accurately characterize. Consider follow-up MR imaging to attempt to further evaluate, as ind icated. Possible fecal impaction/constipation. Severe degenerative spondylosis of the lumbar spine, as detailed above, with probable chronic dannie humberto deformities of L4 and L5. Reviewed, dictated and finalized at location M. Impression: Suspected left pyelonephritis and cystitis. 4.2 cm infrarenal abdominal aortic aneurysm with extensive atherosclerotic calc ification of the aorta and iliac vessels. Several subtle hypodense hepatic structure measuring up to 7 mm in greatest nadine meter. These are too small to accurately characterize. Consider follow-up MR im aging to attempt to further evaluate, as indicated. Possible fecal impaction/constipation. Severe degenerative spondylosis of the lumbar spine, as detailed above
--- NOTE | 2024-05-22 20:16 | ECG_ITS ---
Test Date: 2024-05-22 20:51:49 Measurements Intervals [place] Rate: 83 P: 66 TX: 151 QRS: -42 QRSD: 129 T: 98 QT: 373 QTc: 439 Interpretive Statements SINUS RHYTHM WITH SINUS ARRHYTHMIA WITH OCCASIONAL SUPRAVENTRICULAR PREMATURE COMPLEXES LEFT AXIS DEVIATION INTRAVENTRICULAR CONDUCTION DELAY DELAYED PRECORDIAL R/S TRANSITION BORDERLINE ST-T WAVE ABNORMALITY- LAT/HIGH LAT LEADS BASELINE ARTIFACT- I, II, III, AVR, AVL, AVF, V1-V6 BORDERLINE ECG No previous ECG available for comparison Electronically Signed On 05-23-2024 06:39:54 CDT by Mulugeta Zayas D.O.
--- NOTE | 2024-05-22 20:31 | ED.WEAKNESS ---
HPI - Weakness General Chief complaint: Altered Mental Status Stated complaint: poss UTI, weakness, lethargy, AMS Time Seen by Provider: 05/22/24 20:16 Source: patient and family Mode of arrival: wheelchair History of Present Illness HPI Narrative: This is a 78-year-old male that presents to the emergency department for generalized weakness. His brought him in out of concern he may have a UTI. Reports he has been sleeping most of the day. Has been quite lethargic. He has been a little confused as well. Reports he has had UTIs in the past with similar symptoms. He has had a little congestion lately. Otherwise has no focal symptoms. Denies fevers, cough, vomiting, diarrhea. Related Data Home Medications Medication Instructions Recorded Confirmed hydrocodone 10 mg-acetaminophen 1 tablet PO TID PRN Pain 08/14/19 04/19/24 325 mg tablet cyanocobalamin (vitamin B-12) 1,000 mcg PO DAILY 07/23/20 04/19/24 1,000 mcg tablet morphine See Rx Instructions .Route .COMPLEX 07/23/20 04/19/24 aspirin 81 mg tablet 81 mg PO DAILY 12/31/21 04/19/24 nitroglycerin 0.4 mg sublingual 0.4 mg sublingual Q5-10M PRN Chest 12/31/21 04/19/24 tablet Pain trospium 20 mg tablet 20 mg PO BID 12/19/22 04/19/24 cetirizine 10 mg tablet 10 mg PO DAILY PRN Allergy Symptoms 12/25/22 04/19/24 pyridoxine (vitamin B6) 100 mg 100 mg PO DAILY 12/25/22 04/19/24 tablet sennosides 8.6 mg tablet (senna) 25.8 mg PO HS 12/25/22 04/19/24 mirtazapine 15 mg tablet 15 mg PO DAILY 04/01/23 04/19/24 cholecalciferol (vitamin D3) 50 100 mcg PO DAILY 06/17/23 04/19/24 mcg (2,000 unit) capsule Allergies Allergy/AdvReac Type Severity Reaction Status Date / Time No Known Allergies Allergy Verified 04/19/24 10:55 [facility] Past Medical History Medical History (Updated 05/23/24 @ 02:27 by Brie Rendon PA-C) Abnormal CT lung screening Abnormal findings on esophagogastroduodenoscopy (EGD) 07.26.20 paula's esophagus/ path pending esophageal web bougied Acute sepsis Allergic rhinitis Anxiety Arthritis, lumbar spine Paula's esophagus without dysplasia Barretts esophagus BMI 20.0-20.9, adult BMI 21.0-21.9, adult BMI 24.0-24.9, adult BMI 28.0-28.9,adult BMI 29.0-29.9,adult BPH w/o urinary obs/LUTS CAD (coronary artery disease) Carpal tunnel syndrome Chronic back pain with active pain pump Chronic UTI Colon cancer screening DDD (degenerative disc disease) Delirium due to general medical condition Depression Dextroscoliosis Diastolic dysfunction Diverticulosis Elevated blood pressure reading without diagnosis of hypertension Elevated troponin Encounter for Medicare annual wellness exam Encounter to establish care Esophageal web egd 07.26.20 bougied Esophagitis Facial injury Fall Follow up GERD (gastroesophageal reflux disease) Heel pain History of angina History of heart attack Hypercholesteremia Hyperlipidemia, unspecified Hypertension Infectious encephalopathy Left cataract Nicotine dependence Nicotine dependence, cigarettes, uncomplicated Nicotine dependence, unspecified, uncomplicated Normocytic anemia Occlusion and stenosis of bilateral carotid arteries On intermediate project manager drug therapy Open wound of right heel Other intervertebral disc degeneration, thoracic region Personal history of nicotine dependence Pneumonia Preop cardiovascular exam PVD (peripheral vascular disease) Sleep apnea Sleep apnea Spinal cord stimulator status Spinal stenosis 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
[2024-05-22 20:32] LABS: Basophils Absolute Auto 0.1 K/mm3 (0.0-0.1); Basophils Percent Auto 0.3 % (0.2-1.2); Hematocrit 39.9 % (42.0-52.0); Hemoglobin 13.1 g/dL (14.0-18.0); Immature Granulocyte Absolute 0.15 K/mm3 (0.00-0.031); Immature Granulocyte Percent A 0.6 % (0-0.5); Lymphocytes Percent Auto 4.4 % (18.3-44.2); Mean Corpuscular HGB Conc 32.8 g/dl (32-36); Mean Corpuscular Hemoglobin 32.1 pg (26-34); Mean Corpuscular Volume 97.8 fl (80-100); Monocytes Absolute Auto 1.6 K/mm3 (0.1-0.6); Monocytes Percent Auto 6.3 % (2.6-8.5); Neutrophils Absolute Auto 22.3 K/mm3 (1.3-6.7); Neutrophils Percent Auto 88.4 % (45.5-73.1); Platelet Count Result 232 k/mm3 (150-375); Red Blood Count 4.08 M/mm3 (4.6-6.20); Red Cell Distribution Width 12.8 % (11.5-14.5); White Blood Count 25.2 K/mm3 (4.5-10.0)
[2024-05-22 20:46] LABS: INR 1.2; Prothrombin Time 15.2 Seconds (11.1-14.7)
[2024-05-22 20:47] LABS: Partial Thromboplastin Time 34.3 Seconds (22.3-36.8)
[2024-05-22 20:49] LABS: Alanine Aminotransferase 17 U/L (6-50); Albumin Level 4.2 g/dL (3.5-5.1); Alkaline Phosphatase 53 U/L (38-126); Anion Gap 9 mmol/L (4-12); Aspartate Amino Transferase 19 U/L (17-59); Bilirubin,Total 0.8 mg/dL (0.2-1.3); Blood Urea Nitrogen 36 mg/dL (9-20); Calcium 9.5 mg/dL (8.4-10.2); Carbon Dioxide 28 mmol/L (22-30); Chloride 96 mmol/L (98-107); Estimated CRCL calculation 51 ml/min; Estimated Glomerular Filt Rate > 60; Glucose 135 mg/dL (65-110); Sodium 133 mmol/L (137-145)
[2024-05-22 20:59] LABS: CRP 19.4 mg/dL (<1.0)
[2024-05-22] MEDS: SODIUM CHLORIDE 0.9% IV 1,000 ML 999 ML IV CONT ×2 (21:18→22:37)
[2024-05-22 21:25] LABS: Lactic Acid Reflex 1.8 mmol/L (0.7-2.0)
[2024-05-22 21:48] LABS: Bacteria Urine 4+ /hpf; Non Pathogenic Casts 0-2; RBC Urine 0-2 /hpf (0-2); Squamous Epithelial Cell Urine None Seen /hpf (Few); WBC Urine 21-50 /hpf (0-3)
[2024-05-22 21:51] LABS: Influenza A QL RT-PCR Negative (Negative); Influenza B QL RT-PCR Negative (Negative); RSV RNA, RT-PCR Negative (Negative); SARS-CoV-2 RNA PCR Negative (Negative)
[2024-05-22 21:54] LABS: Appearance Urine Sl Cloudy (Clear); Color Urine Yellow (Yellow); pH Urine 5.5 (5.0-9.0)
[2024-05-22 21:55] LABS: Add Urine Microscopic? YES; Bilirubin Urine 1+ (Negative); Blood Urine 1+ (Negative); Glucose Urine UA Negative (Negative); Ketones Urine Trace mg/dL (Negative); Leukocyte Esterase Ur Trace LEU/UL (Negative); Nitrate Urine Negative (Negative); Protein Urine 2+ mg/dL (Negative)
[2024-05-22 22:47] LABS: Lipase 71 U/L (23-300)
[2024-05-23] VITALS (16 sets, daily range): BP systolic 98–128; BP diastolic 48–69; PULSE 58–94; RESP 15–21; TEMP 36.4–37.1; O2SAT 98–100
[2024-05-23] MEDS: IBUPROFEN IV 400 MG in SODIUM CHLORIDE 0.9% IV 100 ML 208 MG IVPB (01:41)
--- NOTE | 2024-05-23 02:55 | PC.NURSE ---
Patient is unable to answer admission questions per self; RN placed left a message for Dianna Scherer, patient's spouse, to assist in completing the admission process.
--- NOTE | 2024-05-23 03:03 | ADMGEN ---
This patient, Gregory Scherer, was admitted to Medical Room 247-. Patient/family oriented to hospital policies and general routines including ID bracelet, bed and alarms, visiting hours, pain management, procedures, bathroom and other care routines, personal items, smoking policy, room service/diet, and visiting hours. Information on how to activate the Rapid Response Team has been discussed. Patient/Family are encouraged to report perceived risks to care and to ask questions if they do not understand what they are told or what they should do.
[2024-05-23] MEDS: BISACODYL 10 MG SUPPOSITORY RECTAL (03:37)
--- NOTE | 2024-05-23 07:29 | PM.IMHP ---
H&P: HPI History of Present Illness Date/Time: 05/23/24 07:29 Chief Complaint: weakness, sleepiness, UTI Narrative: 78-year-old male with PMH CAD s/p 3 stents, HLD, anxiety, BPH, Barretts esophagus, chronic back pain, diverticulosis, GERD, HTN, nicotine dependance, heel wound, LILO, PVD, spinal cord stimulator, urethral stricture, UTI, vit b6, vit d deficiency that presents to the emergency department for generalized weakness. His brought him in out of concern he may have a UTI. Reports he has been sleeping most of the day. Has been quite lethargic. He has been a little confused as well. Reports he has had UTIs in the past with similar symptoms. He has had a little congestion lately. Otherwise has no focal symptoms. Denies fevers, cough, vomiting, diarrhea. in ED: patient presents to ED for altered mental status. Patient is afebrile and nontoxic appearing. His vitals are stable. CBC with leukocytosis to 25.2. Metabolic panel without concerning findings. Lactic acid is not elevated. Urine concerning for UTI- culture is pending. Blood culture pending. Patient started on Rocephin based on previous culture results. CT brain WNL. Chest x-ray without acute cardiopulmonary abnormality. CT abdomen/ pelvis/lumbar spine - bilateral pyelonephritis. 05/23- unable to get much history from pt- he is poor historian. Knows his name and and hospital, but thinks he is in [place] and it is 1983. Denies chest pain, n/v/d. Reports no falling but feeling weak overall. Review of Systems Review of Systems: All systems reviewed & are unremarkable except as noted in HPI and below (h/p) [facility] Past Medical History Medical History (Updated 05/23/24 @ 02:27 by Brie Rendon PA-C) Abnormal CT lung screening Abnormal findings on esophagogastroduodenoscopy (EGD) 11.6.20 paula's esophagus/ path pending esophageal web bougied Acute sepsis Allergic rhinitis Anxiety Arthritis, lumbar spine Paula's esophagus without dysplasia Barretts esophagus BMI 20.0-20.9, adult BMI 21.0-21.9, adult BMI 24.0-24.9, adult BMI 28.0-28.9,adult BMI 29.0-29.9,adult BPH w/o urinary obs/LUTS CAD (coronary artery disease) Carpal tunnel syndrome Chronic back pain with active pain pump Chronic UTI Colon cancer screening DDD (degenerative disc disease) Delirium due to general medical condition Depression Dextroscoliosis Diastolic dysfunction Diverticulosis Elevated blood pressure reading without diagnosis of hypertension Elevated troponin Encounter for Medicare annual wellness exam Encounter to establish care Esophageal web egd 07.26.20 bougied Esophagitis Facial injury Fall Follow up GERD (gastroesophageal reflux disease) Heel pain History of angina History of heart attack Hypercholesteremia Hyperlipidemia, unspecified Hypertension Infectious encephalopathy Left cataract Nicotine dependence Nicotine dependence, cigarettes, uncomplicated Nicotine dependence, unspecified, uncomplicated Normocytic anemia Occlusion and stenosis of bilateral carotid arteries 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 Open wound of right heel Other intervertebral disc degeneration, thoracic region Personal history of nicotine dependence Pneumonia Preop cardiovascular exam PVD (peripheral vascular disease) Sleep apnea Sleep apnea Spinal cord stimulator status Spinal stenosis 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
[2024-05-23] MEDS: ENOXAPARIN 40 MG/0.4 ML SYRINGE SUB-Q (08:41)
--- NOTE | 2024-05-23 14:21 | PC.NURSE ---
On 05/23/24, the student, [Kaur Vivas], provided care and completed [facility] documentation on this patient. I have reviewed the student's documentation and agree with the findings.
[2024-05-24 06:00] VITALS: BP 140/67; PULSE 77; RESP 18; TEMP 36.4; O2SAT 98
[2024-05-24 06:29] VITALS: BP 140/67; PULSE 77; RESP 18; TEMP 36.6; O2SAT 98
--- NOTE | 2024-05-24 07:25 | PM.IMPN ---
Progress Note: A&P Assessment and Plan (1) Acute pyelonephritis: Code(s): N10 - Acute pyelonephritis Status: Acute Assessment and Plan: U/A concerning for UTI with trace leukocyte esterase, pyuria, and 4+ bacteria. CT abdomen pelvis shows suspected left pyelonephritis cystitis. WBC 25.2, lactic normal at 1.8, afebrile, normotensive. - dose of ceftriaxone in ED - continue Rocephin but increase to 2 g given bacteremia. - leukocytosis has improved 11.9 today - blood cultures are growing Gram-negative bacilli - repeat blood cultures ordered 24 hours after antibiotic change - urine culture pending - intake and output (2) Weakness: Code(s): R53.1 - Weakness Status: Acute Assessment and Plan: Likely related to infection verses chronic pain PT/OT consulted and recs are appreciated fall precautions Plan DVT prophylaxis: Lovenox 40 mg Glycemic control: NA Code Status: FULL CODE Disposition: This is a 78-year-old male who presents with increased weakness and some confusion from baseline was found have a urinary tract infection with bilateral pyelonephritis. Blood cultures are growing Gram-negative bacilli. Patient was started on Rocephin 2 g. Blood cultures will be repeated in 24 hours. Patient is from home with his anticipate discharge back home with possibly home health for PT OT. Medication reconciliation obtained via the following: Nurse completed on admission The file time of this note does not necessarily represent the time the patient was seen. Subjective Date/time seen: 05/24/24 07:25 Interval history: 78-year-old male with PMH CAD s/p 3 stents, HLD, anxiety, BPH, Barretts esophagus, chronic back pain, diverticulosis, GERD, HTN, nicotine dependance, heel wound, LILO, PVD, spinal cord stimulator, urethral stricture, UTI, vit b6, vit d deficiency that presents to the emergency department for generalized weakness. 05/24: Seen resting on the edge of the bed with his bedside. He is in no acute distress. He states he is having bowel movements now was able to tolerate his breakfast this morning. He complains of chronic low back pain for which he has a implanted morphine pump. Patient states he follows with rylee Dowd At [facility]. At his last visit he answered all the cognitive questions appropriately. He seemed slightly more confused from his baseline which is what prompted his to bring him to the hospital. Review of Systems Review of Systems: All systems reviewed & are unremarkable except as noted in HPI and below Exam Narrative: General: well appearing, thin, appears stated age. HEENT: normocephalic, atraumatic. Mucous membranes moist. EOMI, PERRLA, bilateral sclera anicteric, no conjunctival injection. Neck supple without JVD, lymphadenopathy, or bruit. Respiratory: clear to auscultation bilaterally. No rales/rhonic/wheezes. Cardiovascular: Regular rate and rhythm, normal S1-S2 upon auscultation. No murmurs, rubs, or clicks. PMI is nondisplaced, capillary refill less than 3 second. Abdomen: Soft, round, no pulsatile masses, nondistended and nontender. No rebound, no guarding. No CVA tenderness, no hepatosplenomegaly. Bowel sounds present to all four quadrants. No high pitch or tinkling sounds, resonant to percussion. Extremities: No cyanosis, clubbing, or edema present. Pulses are palpable 2/2. Active ROM to all four extremities. Neuro: Alert and orientated x 4. PERRLA. Cranial nerves 2-12 intact without focal deficit. Skin: Warm, dry, and intact, without rash, erythema, or lesion. Lines: PIV Incisions: Psych: pleasant, cooperative, normal speech, normal affect, no hallucinations, no dysarthria Objective Data Vital Signs Vital Signs: Vital Signs - 24 hr 05/23/24 08:00 05/23/24 13:50 05/23/24 20:15 Temperature 97.9 F Pulse Rate 66 Re
[2024-05-24 09:12] LABS: Basophils Absolute Auto 0.1 K/mm3 (0.0-0.1); Basophils Percent Auto 0.6 % (0.2-1.2); Eosinophils Absolute Auto 0.1 K/mm3 (0-0.3); Eosinophils Percent Auto 0.5 % (0-4.4); Hemoglobin 12.9 g/dL (14.0-18.0); Immature Granulocyte Absolute 0.04 K/mm3 (0.00-0.031); Immature Granulocyte Percent A 0.3 % (0-0.5); Lymphocytes Absolute Auto 2.12 K/mm3 (0.9-3.2); Lymphocytes Percent Auto 17.8 % (18.3-44.2); Mean Corpuscular HGB Conc 31.5 g/dl (32-36); Mean Corpuscular Hemoglobin 31.6 pg (26-34); Mean Corpuscular Volume 100.5 fl (80-100); Monocytes Absolute Auto 1.2 K/mm3 (0.1-0.6); Monocytes Percent Auto 9.8 % (2.6-8.5); Neutrophils Absolute Auto 8.4 K/mm3 (1.3-6.7); Platelet Count Result 231 k/mm3 (150-375); Red Blood Count 4.08 M/mm3 (4.6-6.20); White Blood Count 11.9 K/mm3 (4.5-10.0)
[2024-05-24] MEDS: CHOLECALCIFEROL 1,000 UNITS TABLET 2000 UNITS PO (09:16)
[2024-05-24] MEDS: PANTOPRAZOLE 40 MG TABLET PO ×2 (09:17→17:07)
[2024-05-24] MEDS: ATORVASTATIN 20 MG TABLET PO (09:17)
[2024-05-24] MEDS: CYANOCOBALAMIN 1,000 MCG TABLET 1000 MCG PO (09:17)
[2024-05-24] MEDS: ASPIRIN 81 MG ENTERIC TABLET PO (09:17)
[2024-05-24] MEDS: ENOXAPARIN 40 MG/0.4 ML SYRINGE SUB-Q (09:19)
[2024-05-24 09:33] LABS: Alanine Aminotransferase 45 U/L (6-50); Alkaline Phosphatase 60 U/L (38-126); Anion Gap 9 mmol/L (4-12); Aspartate Amino Transferase 50 U/L (17-59); Bilirubin,Total 0.4 mg/dL (0.2-1.3); Blood Urea Nitrogen 29 mg/dL (9-20); Calcium 9.8 mg/dL (8.4-10.2); Carbon Dioxide 31 mmol/L (22-30); Chloride 99 mmol/L (98-107); Estimated CRCL calculation 56 ml/min; Estimated Glomerular Filt Rate > 60; Glucose 114 mg/dL (65-110); Magnesium 2.3 mg/dL (1.6-2.3); Potassium 4.4 mmol/L (3.4-5.0); Sodium 139 mmol/L (137-145)
[2024-05-24 12:34] LABS: CRP 16.1 mg/dL (<1.0)
[2024-05-24 14:00] VITALS: BP 137/42; PULSE 69; RESP 16; TEMP 36.2; O2SAT 90
[2024-05-24] MEDS: cefTRIAXone 2 GM/NS 100 ML 2 GM/100 ML BAG IVPB (17:07)
[2024-05-24 20:48] VITALS: BP 127/64; PULSE 70; RESP 18; TEMP 36.7; O2SAT 100
[2024-05-24] MEDS: MIRTAZAPINE 30 MG TABLET PO (20:59)
[2024-05-25 06:00] VITALS: BP 109/58; PULSE 61; RESP 18; TEMP 36.4; O2SAT 97
[2024-05-25 06:20] LABS: Basophils Absolute Auto 0.1 K/mm3 (0.0-0.1); Basophils Percent Auto 0.7 % (0.2-1.2); Eosinophils Absolute Auto 0.1 K/mm3 (0-0.3); Eosinophils Percent Auto 1.7 % (0-4.4); Hematocrit 34.9 % (42.0-52.0); Hemoglobin 11.1 g/dL (14.0-18.0); Immature Granulocyte Absolute 0.02 K/mm3 (0.00-0.031); Immature Granulocyte Percent A 0.3 % (0-0.5); Lymphocytes Absolute Auto 1.43 K/mm3 (0.9-3.2); Lymphocytes Percent Auto 19.7 % (18.3-44.2); Mean Corpuscular HGB Conc 31.8 g/dl (32-36); Mean Corpuscular Hemoglobin 31.4 pg (26-34); Mean Corpuscular Volume 98.9 fl (80-100); Mean Platelet Volume 9.9 fl (7.4-10.4); Monocytes Absolute Auto 0.8 K/mm3 (0.1-0.6); Monocytes Percent Auto 11.6 % (2.6-8.5); Neutrophils Absolute Auto 4.8 K/mm3 (1.3-6.7); Platelet Count Result 217 k/mm3 (150-375); Red Blood Count 3.53 M/mm3 (4.6-6.20); White Blood Count 7.3 K/mm3 (4.5-10.0)
[2024-05-25 06:30] LABS: Alanine Aminotransferase 89 U/L (6-50); Albumin Level 3.3 g/dL (3.5-5.1); Alkaline Phosphatase 57 U/L (38-126); Anion Gap 4 mmol/L (4-12); Aspartate Amino Transferase 71 U/L (17-59); Bilirubin,Total 0.3 mg/dL (0.2-1.3); Blood Urea Nitrogen 24 mg/dL (9-20); Calcium 9.5 mg/dL (8.4-10.2); Carbon Dioxide 31 mmol/L (22-30); Chloride 102 mmol/L (98-107); Estimated CRCL calculation 61 ml/min; Estimated Glomerular Filt Rate > 60; Glucose 95 mg/dL (65-110); Magnesium 2.1 mg/dL (1.6-2.3); Potassium 4.2 mmol/L (3.4-5.0); Sodium 137 mmol/L (137-145)
--- NOTE | 2024-05-25 06:57 | PM.IMPN ---
Progress Note: A&P Assessment and Plan (1) Acute pyelonephritis: Code(s): N10 - Acute pyelonephritis Status: Acute Assessment and Plan: U/A concerning for UTI with trace leukocyte esterase, pyuria, and 4+ bacteria. CT abdomen pelvis shows suspected left pyelonephritis cystitis. WBC 25.2, lactic normal at 1.8, afebrile, normotensive. - dose of ceftriaxone in ED - continue Rocephin but increase to 2 g given bacteremia. - leukocytosis has improved 11.9---> 7.3 - blood cultures are growing Gram-negative bacilli - repeat blood cultures ordered 24 hours after antibiotic change - urine culture pending - intake and output (2) Weakness: Code(s): R53.1 - Weakness Status: Acute Assessment and Plan: Likely related to infection verses chronic pain PT/OT consulted and recs are appreciated fall precautions Plan DVT prophylaxis: Lovenox 40 mg Glycemic control: NA Code Status: FULL CODE Disposition: This is a 78-year-old male who presents with increased weakness and some confusion from baseline was found have a urinary tract infection with bilateral pyelonephritis. Blood cultures are growing Gram-negative bacilli. Patient was started on Rocephin 2 g. Blood cultures will be repeated in 24 hours. Patient is from home with his anticipate discharge back home with possibly home health for PT OT. Medication reconciliation obtained via the following: Nurse completed on admission The file time of this note does not necessarily represent the time the patient was seen. Subjective Date/time seen: 05/25/24 06:57 Interval history: 78-year-old male with PMH CAD s/p 3 stents, HLD, anxiety, BPH, Barretts esophagus, chronic back pain, diverticulosis, GERD, HTN, nicotine dependance, heel wound, LILO, PVD, spinal cord stimulator, urethral stricture, UTI, vit b6, vit d deficiency that presents to the emergency department for generalized weakness. 05/24: Seen resting on the edge of the bed with his bedside. He is in no acute distress. He states he is having bowel movements now was able to tolerate his breakfast this morning. He complains of chronic low back pain for which he has a implanted morphine pump. Patient states he follows with rylee Dowd At [facility]. At his last visit he answered all the cognitive questions appropriately. He seemed slightly more confused from his baseline which is what prompted his to bring him to the hospital. 05/25: Acute events overnight. Blood cultures did positive for Gram-negative bacilli. Patient continues to feel better than when he 1st presented to the hospital. He is having bowel movements and tolerating a diet. He denies fever chills. Review of Systems Review of Systems: All systems reviewed & are unremarkable except as noted in HPI and below Exam Narrative: General: well appearing, thin, appears stated age. HEENT: normocephalic, atraumatic. Mucous membranes moist. EOMI, PERRLA, bilateral sclera anicteric, no conjunctival injection. Neck supple without JVD, lymphadenopathy, or bruit. Respiratory: clear to auscultation bilaterally. No rales/rhonic/wheezes. Cardiovascular: Regular rate and rhythm, normal S1-S2 upon auscultation. No murmurs, rubs, or clicks. PMI is nondisplaced, capillary refill less than 3 second. Abdomen: Soft, round, no pulsatile masses, nondistended and nontender. No rebound, no guarding. No CVA tenderness, no hepatosplenomegaly. Bowel sounds present to all four quadrants. No high pitch or tinkling sounds, resonant to percussion. Extremities: No cyanosis, clubbing, or edema present. Pulses are palpable 2/2. Active ROM to all four extremities. Neuro: Alert and orientated x 4. PERRLA. Cranial nerves 2-12 intact without focal deficit. Skin: Warm, dry, and intact, without rash, erythema, or lesion. Lines: PIV Incisions: Psych: plea
[2024-05-25] MEDS: PANTOPRAZOLE 40 MG TABLET PO ×2 (08:50→17:08)
[2024-05-25] MEDS: ENOXAPARIN 40 MG/0.4 ML SYRINGE SUB-Q (08:50)
[2024-05-25] MEDS: CYANOCOBALAMIN 1,000 MCG TABLET 1000 MCG PO (08:50)
[2024-05-25] MEDS: CHOLECALCIFEROL 1,000 UNITS TABLET 2000 UNITS PO (08:50)
[2024-05-25] MEDS: ATORVASTATIN 20 MG TABLET PO (08:50)
[2024-05-25] MEDS: ASPIRIN 81 MG ENTERIC TABLET PO (08:50)
[2024-05-25 14:00] VITALS: BP 120/66; PULSE 99; RESP 18; TEMP 36.5; O2SAT 99
[2024-05-25] MEDS: cefTRIAXone 2 GM/NS 100 ML 2 GM/100 ML BAG IVPB (14:00)
[2024-05-25] MEDS: MIRTAZAPINE 30 MG TABLET PO (20:24)
[2024-05-25 22:00] VITALS: BP 127/61; PULSE 62; RESP 20; TEMP 36.5; O2SAT 98
[2024-05-26 06:00] VITALS: BP 134/59; PULSE 53; RESP 18; TEMP 36.2; O2SAT 96
[2024-05-26 06:44] LABS: Basophils Absolute Auto 0.1 K/mm3 (0.0-0.1); Basophils Percent Auto 0.8 % (0.2-1.2); Eosinophils Absolute Auto 0.2 K/mm3 (0-0.3); Hematocrit 36.9 % (42.0-52.0); Hemoglobin 11.9 g/dL (14.0-18.0); Immature Granulocyte Absolute 0.01 K/mm3 (0.00-0.031); Immature Granulocyte Percent A 0.1 % (0-0.5); Lymphocytes Absolute Auto 2.11 K/mm3 (0.9-3.2); Lymphocytes Percent Auto 28.3 % (18.3-44.2); Mean Corpuscular HGB Conc 32.2 g/dl (32-36); Mean Corpuscular Hemoglobin 31.5 pg (26-34); Mean Corpuscular Volume 97.6 fl (80-100); Mean Platelet Volume 9.9 fl (7.4-10.4); Monocytes Absolute Auto 0.8 K/mm3 (0.1-0.6); Monocytes Percent Auto 11.1 % (2.6-8.5); Neutrophils Absolute Auto 4.3 K/mm3 (1.3-6.7); Neutrophils Percent Auto 57.7 % (45.5-73.1); Platelet Count Result 242 k/mm3 (150-375); Red Blood Count 3.78 M/mm3 (4.6-6.20); Red Cell Distribution Width 12.7 % (11.5-14.5); White Blood Count 7.5 K/mm3 (4.5-10.0)
--- NOTE | 2024-05-26 06:50 | PM.IMPN ---
Progress Note: A&P Assessment and Plan (1) Acute pyelonephritis: Code(s): N10 - Acute pyelonephritis Status: Acute Assessment and Plan: U/A concerning for UTI with trace leukocyte esterase, pyuria, and 4+ bacteria. CT abdomen pelvis shows suspected left pyelonephritis cystitis. WBC 25.2, lactic normal at 1.8, afebrile, normotensive. - dose of ceftriaxone in ED - continue Rocephin but increase to 2 g given bacteremia. - leukocytosis has improved 11.9---> 7.3 ---> 7.5 - blood cultures are growing Gram-negative bacilli, Ecoli resistant to oral options - Patient needs Rocephin 2 gram daily through 05/30. - repeat blood cultures ordered 24 hours after antibiotic change - urine culture with Ecoli - intake and output (2) Weakness: Code(s): R53.1 - Weakness Status: Acute Assessment and Plan: Likely related to infection verses chronic pain PT/OT consulted and recs are appreciated fall precautions Plan DVT prophylaxis: Lovenox 40 mg Glycemic control: NA Code Status: FULL CODE Disposition: This is a 78-year-old male who presents with increased weakness and some confusion from baseline was found have a urinary tract infection with bilateral pyelonephritis. Blood cultures are growing Gram-negative bacilli. Patient was started on Rocephin 2 g, needs IV antibiotics through 05/30/24. Awaiting clearance of blood cultures. Patient is from home with his anticipate discharge back home with possibly home health for PT OT. May need home health for IV antibiotics vs remaining inpatient for hospitalization. Medication reconciliation obtained via the following: Nurse completed on admission The file time of this note does not necessarily represent the time the patient was seen. Subjective Date/time seen: 05/26/24 06:50 Interval history: 78-year-old male with PMH CAD s/p 3 stents, HLD, anxiety, BPH, Barretts esophagus, chronic back pain, diverticulosis, GERD, HTN, nicotine dependance, heel wound, LILO, PVD, spinal cord stimulator, urethral stricture, UTI, vit b6, vit d deficiency that presents to the emergency department for generalized weakness. 05/24: Seen resting on the edge of the bed with his bedside. He is in no acute distress. He states he is having bowel movements now was able to tolerate his breakfast this morning. He complains of chronic low back pain for which he has a implanted morphine pump. Patient states he follows with [facility] At [facility]. At his last visit he answered all the cognitive questions appropriately. He seemed slightly more confused from his baseline which is what prompted his to bring him to the hospital. 05/25: Acute events overnight. Blood cultures did positive for Gram-negative bacilli. Patient continues to feel better than when he 1st presented to the hospital. He is having bowel movements and tolerating a diet. He denies fever chills. 05/26: No acute events overnight. He is doing well today. No oral options for his infection. Will need line placed and home health consult for IV antibiotics versus remaining in patient to compelte his therapy. Review of Systems Review of Systems: All systems reviewed & are unremarkable except as noted in HPI and below Exam Narrative: General: well appearing, thin, appears stated age. HEENT: normocephalic, atraumatic. Mucous membranes moist. EOMI, PERRLA, bilateral sclera anicteric, no conjunctival injection. Neck supple without JVD, lymphadenopathy, or bruit. Respiratory: clear to auscultation bilaterally. No rales/rhonic/wheezes. Cardiovascular: Regular rate and rhythm, normal S1-S2 upon auscultation. No murmurs, rubs, or clicks. PMI is nondisplaced, capillary refill less than 3 second. Abdomen: Soft, round, no pulsatile masses, nondistended and nontender. No rebound, no guarding. No CVA tenderness, no hepatospl
[2024-05-26 06:58] LABS: Alanine Aminotransferase 85 U/L (6-50); Albumin Level 3.5 g/dL (3.5-5.1); Alkaline Phosphatase 51 U/L (38-126); Anion Gap 7 mmol/L (4-12); Aspartate Amino Transferase 53 U/L (17-59); Bilirubin,Total 0.3 mg/dL (0.2-1.3); Blood Urea Nitrogen 20 mg/dL (9-20); Calcium 9.5 mg/dL (8.4-10.2); Carbon Dioxide 30 mmol/L (22-30); Chloride 100 mmol/L (98-107); Estimated CRCL calculation 69 ml/min; Estimated Glomerular Filt Rate > 60; Glucose 91 mg/dL (65-110); Magnesium 2.1 mg/dL (1.6-2.3); Potassium 3.9 mmol/L (3.4-5.0); Sodium 137 mmol/L (137-145)
[2024-05-26] MEDS: ATORVASTATIN 20 MG TABLET PO (08:11)
[2024-05-26] MEDS: CYANOCOBALAMIN 1,000 MCG TABLET 1000 MCG PO (08:11)
[2024-05-26] MEDS: CHOLECALCIFEROL 1,000 UNITS TABLET 2000 UNITS PO (08:11)
[2024-05-26] MEDS: ENOXAPARIN 40 MG/0.4 ML SYRINGE SUB-Q (08:11)
[2024-05-26] MEDS: PANTOPRAZOLE 40 MG TABLET PO ×2 (08:12→16:18)
[2024-05-26] MEDS: ASPIRIN 81 MG ENTERIC TABLET PO (08:12)
[2024-05-26] MEDS: LORATADINE 10 MG TABLET PO (08:13)
[2024-05-26 14:00] VITALS: BP 123/53; PULSE 99; RESP 12; O2SAT 100
[2024-05-26] MEDS: cefTRIAXone 2 GM/NS 100 ML 2 GM/100 ML BAG IVPB (14:19)
[2024-05-26] MEDS: MIRTAZAPINE 30 MG TABLET PO (20:26)
[2024-05-26] MEDS: SENNOSIDES 8.6 MG TABLET 25.8 MG PO (20:26)
[2024-05-26 21:59] VITALS: BP 128/55; PULSE 70; RESP 20; TEMP 36.3; O2SAT 98
[2024-05-27 04:58] LABS: Basophils Absolute Auto 0.1 K/mm3 (0.0-0.1); Basophils Percent Auto 1.3 % (0.2-1.2); Eosinophils Absolute Auto 0.2 K/mm3 (0-0.3); Eosinophils Percent Auto 3.1 % (0-4.4); Hematocrit 36.2 % (42.0-52.0); Hemoglobin 10.9 g/dL (14.0-18.0); Immature Granulocyte Absolute 0.02 K/mm3 (0.00-0.031); Immature Granulocyte Percent A 0.3 % (0-0.5); Lymphocytes Absolute Auto 2.25 K/mm3 (0.9-3.2); Lymphocytes Percent Auto 33.7 % (18.3-44.2); Mean Corpuscular HGB Conc 30.1 g/dl (32-36); Mean Corpuscular Hemoglobin 31.1 pg (26-34); Mean Corpuscular Volume 103.4 fl (80-100); Mean Platelet Volume 9.8 fl (7.4-10.4); Monocytes Absolute Auto 0.7 K/mm3 (0.1-0.6); Monocytes Percent Auto 10.8 % (2.6-8.5); Neutrophils Absolute Auto 3.4 K/mm3 (1.3-6.7); Neutrophils Percent Auto 50.8 % (45.5-73.1); Platelet Count Result 242 k/mm3 (150-375); Red Cell Distribution Width 12.7 % (11.5-14.5); White Blood Count 6.7 K/mm3 (4.5-10.0)
[2024-05-27 05:20] LABS: Alanine Aminotransferase 74 U/L (6-50); Albumin Level 3.5 g/dL (3.5-5.1); Alkaline Phosphatase 48 U/L (38-126); Anion Gap 11 mmol/L (4-12); Aspartate Amino Transferase 44 U/L (17-59); Bilirubin,Total 0.3 mg/dL (0.2-1.3); Blood Urea Nitrogen 18 mg/dL (9-20); Calcium 9.2 mg/dL (8.4-10.2); Carbon Dioxide 24 mmol/L (22-30); Chloride 101 mmol/L (98-107); Estimated CRCL calculation 69 ml/min; Estimated Glomerular Filt Rate > 60; Glucose 93 mg/dL (65-110); Magnesium 2.2 mg/dL (1.6-2.3); Potassium 3.7 mmol/L (3.4-5.0); Sodium 136 mmol/L (137-145)
[2024-05-27 06:00] VITALS: BP 128/64; PULSE 57; RESP 20; TEMP 36.2; O2SAT 100
--- NOTE | 2024-05-27 07:10 | PM.DS ---
DS: Admitting Diagnosis Discharge Date 05/27 Admitting Diagnosis Weakness DS: Discharge Diagnosis Discharge Diagnosis (1) Acute pyelonephritis: Code(s): N10 - Acute pyelonephritis Status: Acute Assessment and Plan: U/A concerning for UTI with trace leukocyte esterase, pyuria, and 4+ bacteria. CT abdomen pelvis shows suspected left pyelonephritis cystitis. WBC 25.2, lactic normal at 1.8, afebrile, normotensive. - dose of ceftriaxone in ED - continue Rocephin but increase to 2 g given bacteremia. - leukocytosis has improved 11.9---> 7.3 ---> 7.5 - blood cultures are growing Gram-negative bacilli, Ecoli resistant to oral options - Patient needs Rocephin 2 gram daily through 05/30. - repeat blood cultures ordered 24 hours after antibiotic change - urine culture with Ecoli - intake and output (2) Weakness: Code(s): R53.1 - Weakness Status: Acute Assessment and Plan: Likely related to infection verses chronic pain PT/OT consulted and recs are appreciated fall precautions Plan DVT prophylaxis: Lovenox 40 mg Glycemic control: NA Code Status: FULL CODE Disposition: This is a 78-year-old male who presents with increased weakness and some confusion from baseline was found have a urinary tract infection with bilateral pyelonephritis. Blood cultures are growing Gram-negative bacilli. Patient was started on Rocephin 2 g, needs IV antibiotics through 05/30/24. Awaiting clearance of blood cultures. Patient is from home with his anticipate discharge back home with possibly home health for PT OT. May need home health for IV antibiotics vs remaining inpatient for hospitalization. Medication reconciliation obtained via the following: Nurse completed on admission The file time of this note does not necessarily represent the time the patient was seen. DS: Summary Hospital Course Hospital Course: 78-year-old male with PMH CAD s/p 3 stents, HLD, anxiety, BPH, Barretts esophagus, chronic back pain, diverticulosis, GERD, HTN, nicotine dependance, heel wound, LILO, PVD, spinal cord stimulator, urethral stricture, UTI, vit b6, vit d deficiency that presents to the emergency department for generalized weakness. His brought him in out of concern he may have a UTI. Reports he has been sleeping most of the day. Has been quite lethargic. He has been a little confused as well. Reports he has had UTIs in the past with similar symptoms. He has had a little congestion lately. Otherwise has no focal symptoms. Denies fevers, cough, vomiting, diarrhea. in ED: patient presents to ED for altered mental status. Patient is afebrile and nontoxic appearing. His vitals are stable. CBC with leukocytosis to 25.2. Metabolic panel without concerning findings. Lactic acid is not elevated. Urine concerning for UTI- culture is pending. Blood culture pending. Patient started on Rocephin based on previous culture results. CT brain WNL. Chest x-ray without acute cardiopulmonary abnormality. CT abdomen/ pelvis/lumbar spine - bilateral pyelonephritis. Patient was admitted given IV antibiotics with Rocephin. Urine culture and blood cultures grew E coli. No oral options for treatment were available. It was decided that patient would discharge with home health care with his PCP following his IV antibiotics. Repeat blood cultures were negative. PICC line was inserted prior to discharge. Patient discharged with [facility] for daily Rocephin 2 g with last day of antibiotics on 05-30. Overall the patient did well and he was discharged in stable condition. Time Spent with Patient Time attestation: Total time spent providing and/or coordinating discharge services: 75 Exam Narrative: General: well appearing, thin, appears stated age. HEENT: normocephalic, atraumatic. Mucous membranes moist. EOMI, PE
[2024-05-27] MEDS: CYANOCOBALAMIN 1,000 MCG TABLET 1000 MCG PO (08:49)
[2024-05-27] MEDS: ATORVASTATIN 20 MG TABLET PO (08:49)
[2024-05-27] MEDS: CHOLECALCIFEROL 1,000 UNITS TABLET 2000 UNITS PO (08:49)
[2024-05-27] MEDS: ENOXAPARIN 40 MG/0.4 ML SYRINGE SUB-Q (08:49)
[2024-05-27] MEDS: PANTOPRAZOLE 40 MG TABLET PO (08:49)
[2024-05-27] MEDS: ASPIRIN 81 MG ENTERIC TABLET PO (08:49)
[2024-05-27] MEDS: LIDOCAINE HCL 1% LOCAL INJ 2 ML AMPUL 5 ML INFILTRATE (11:45)
[2024-05-27] MEDS: SALINE LOCK FLUSH 10 ML IV PUSH (13:13)
[2024-05-27] MEDS: cefTRIAXone 2 GM/NS 100 ML 2 GM/100 ML BAG IVPB (13:13)
[2024-05-27 14:00] VITALS: BP 113/48; PULSE 89; RESP 12; TEMP 36.4; O2SAT 100
== END 2024-05-27 15:50 | disposition home health service (06) | DRG 690 ==
LOC: ANHED 05-23 02:27 → ANH2MED 05-23 02:53
PROVIDERS: Nurse Practitioner Acute Care; Admitting Provider Internal Medicine; Emergency Provider Physician Assistant; PCP Internal Medicine; Visit Provider Internal Medicine
DX: N10 Acute pyelonephritis (principal); N39.0 Urinary tract infection, site not specified; B96.20 Unspecified Escherichia coli [E. coli] as the cause of diseases classified elsewhere; E78.2 Mixed hyperlipidemia; E55.9 Vitamin D deficiency, unspecified; E53.8 Deficiency of other specified B group vitamins; F41.9 Anxiety disorder, unspecified; G89.29 Other chronic pain; G47.33 Obstructive sleep apnea (adult) (pediatric); I10 Essential (primary) hypertension; I73.9 Peripheral vascular disease, unspecified; I25.10 Atherosclerotic heart disease of native coronary artery without angina pectoris; K22.70 Barrett's esophagus without dysplasia; K57.90 Diverticulosis of intestine, part unspecified, without perforation or abscess without bleeding; K21.9 Gastro-esophageal reflux disease without esophagitis; M54.9 Dorsalgia, unspecified; N40.1 Benign prostatic hyperplasia with lower urinary tract symptoms; R39.12 Poor urinary stream; Z95.5 Presence of coronary angioplasty implant and graft; Z87.891 Personal history of nicotine dependence; Z96.82 Presence of neurostimulator
CPT/HCPCS: 36415; 36569; 70450; 71046; 72132; 74177; 80053; 81001; 83605; 83690; 83735; 85025; 85610; 85730; 86140; 87040; 87077; 87086; 87088; 87186; 87637; 93005; 96361; 96365; 96366; 96367; 96372; 97110; 97161; 97165; 97530; 97535; 99285; A9270; G0378; J0696; J1650; J1741; J7030; Q9967

== ENCOUNTER 2024-08-02 13:13 | Outpatient (NON) | payer MEDICARE, SELFPAY ==
[2024-08-02 13:44] LABS: Add Urine Microscopic? YES; Appearance Urine Turbid (Clear); Bacteria Urine 4+ /hpf; Bilirubin Urine Negative (Negative); Blood Urine Non-Hemolyzed Trace (Negative); Color Urine Yellow (Yellow); Glucose Urine UA Negative (Negative); Ketones Urine Negative (Negative); Leukocyte Esterase Ur 3+ LEU/UL (Negative); Nitrate Urine Negative (Negative); Protein Urine Trace mg/dL (Negative); RBC Urine 0-2 /hpf (0-2); Squamous Epithelial Cell Urine None Seen /hpf (Few); WBC Urine >100 /hpf (0-3)
== END 2024-08-02 13:14 | disposition home or self-care (01) ==
LOC: ANHLAB 13:14
PROVIDERS: PCP Internal Medicine; Visit Provider Internal Medicine
DX: N39.0 Urinary tract infection, site not specified (principal)
CPT/HCPCS: 81001; 87077; 87086; 87186

== ENCOUNTER 2024-08-15 10:54 | Outpatient (NON) | payer MEDICARE, SELFPAY ==
[2024-08-15 11:28] LABS: Add Urine Microscopic? YES; Appearance Urine Clear (Clear); Bacteria Urine None Seen /hpf; Bilirubin Urine Negative (Negative); Blood Urine Negative (Negative); Color Urine Yellow (Yellow); Glucose Urine UA Negative (Negative); Ketones Urine Negative (Negative); Leukocyte Esterase Ur 1+ LEU/UL (Negative); Need Manual Microscopic Reviewed; Nitrate Urine Negative (Negative); Non Pathogenic Casts 0-2; Protein Urine Negative (Negative); RBC Urine 0-2 /hpf (0-2); Specific Grav Ur 1.017 (1.001-1.035); Squamous Epithelial Cell Urine None Seen /hpf (Few); Urobilinogen Urine 0.2 mg/dL (<2.0); WBC Urine 0-5 /hpf (0-3); pH Urine 6.5 (5.0-9.0)
== END 2024-08-15 10:55 | disposition home or self-care (01) ==
PROVIDERS: PCP Internal Medicine; Visit Provider Internal Medicine
DX: N39.0 Urinary tract infection, site not specified (principal); R39.15 Urgency of urination; R30.0 Dysuria
CPT/HCPCS: 81001; 87086

== ENCOUNTER 2024-08-15 14:47 | Outpatient (CLI) | payer MEDICARE, SELFPAY ==
--- NOTE | ~2024-08-15 | XR_ITS ---
EXAMINATION: XR thoracic spine min 4V DATE: 08/15/2024 15:19 INDICATION: Thoracic spine pain. TECHNIQUE: 5 views of thoracic spine were obtained. COMPARISON: None. FINDINGS: There is 12 degrees levoscoliosis of cervicothoracic spine. There are changes of posterior fusion procedure from C4 to T1 with screws and rods. There is a chronic compression fracture of T7 wi th 2/5 loss of height. There are endplate osteophytes at all levels. There is mildly decreased disc h eight at T6-T7. There are disc calcifications at many thoracic levels. Electrodes are noted in the po sterior soft tissues. IMPRESSION: 1. Mild thoracic spondylosis. 2. Posterior fusion of cervicothoracic spine. 3. Cervicothoracic levoscoliosis. Reviewed, dictated and finalized at location A. [employer]
== END 2024-08-15 14:48 | disposition home or self-care (01) ==
LOC: ANHIMG 14:53
PROVIDERS: PCP Internal Medicine; Visit Provider Chiropractor
DX: M47.894 Other spondylosis, thoracic region (principal)
CPT/HCPCS: 72074

== ENCOUNTER 2024-08-24 13:52 | Outpatient (CLI) | payer MEDICARE, SELFPAY ==
--- NOTE | ~2024-08-24 | CT_ITS ---
CT Scan of the Chest without Contrast: Clinical Indication: Lung cancer screening, nicotine dependence Technique: Contiguous sections were acquired throughout the chest without intravenous contrast. Dose reduction technique was used on this scan by utilizing automated exposure control and iterative recon struction technique. The dose-length product (DLP) was 112.47 mGy-cm. COMPARISON: 07/13/2022 Findings: There is no evidence of any significant mediastinal, hilar or axillary lymphadenopathy. There are ext ensive atherosclerotic calcifications of the coronary arteries and aorta. There is no evidence of pleural or pericardial effusion. Calcified right upper lobe granuloma noted. There is mild chronic interstitial change, with mild subp leural reticulation and mild interstitial thickening. There is basilar predominance of findings. Images through the upper abdomen reveal no abnormalities. Impression: Lung RADS 2: Benign appearance. 12 month follow-up screening CT advised. Chronic interstitial pulmonary disease, as above. Reviewed, dictated and finalized at [facility]. P [employer]UCK [employer] Impression: Lung RADS 2: Benign appearance. 12 month follow-up screening CT advised. Chronic interstitial pulmonary disease, as above.
== END 2024-08-24 13:53 | disposition home or self-care (01) ==
PROVIDERS: PCP Internal Medicine; Visit Provider Internal Medicine
DX: Z12.2 Encounter for screening for malignant neoplasm of respiratory organs (principal); Z87.891 Personal history of nicotine dependence; J84.9 Interstitial pulmonary disease, unspecified
CPT/HCPCS: 71271

== ENCOUNTER 2024-09-14 12:20 | Outpatient (CLI) | payer MEDICARE, SELFPAY ==
[2024-09-14 16:03] LABS: Add Urine Microscopic? YES; Appearance Urine Turbid (Clear); Bacteria Urine 4+ /hpf; Bilirubin Urine Negative (Negative); Blood Urine 1+ (Negative); Color Urine Yellow (Yellow); Glucose Urine UA Negative (Negative); Ketones Urine Negative (Negative); Leukocyte Esterase Ur 3+ LEU/UL (Negative); Nitrate Urine Positive (Negative); Protein Urine Trace mg/dL (Negative); RBC Urine 0-2 /hpf (0-2); Specific Grav Ur 1.015 (1.001-1.035); Squamous Epithelial Cell Urine None Seen /hpf (Few); Urobilinogen Urine 0.2 mg/dL (<2.0); WBC Urine >100 /hpf (0-3)
[2024-09-14 16:27] LABS: Need Manual Microscopic Reviewed
== END 2024-09-14 12:21 | disposition home or self-care (01) ==
LOC: ANHLAB 12:22
PROVIDERS: PCP Internal Medicine; Visit Provider Internal Medicine
DX: N39.0 Urinary tract infection, site not specified (principal)
CPT/HCPCS: 81001; 87077; 87086; 87186

== ENCOUNTER 2024-10-04 01:42 | Day surgery (SDC) | payer MEDICARE, SELFPAY ==
[2024-10-03 15:12] VITALS: BMI 21.7
[2024-10-04 11:19] VITALS: BP 140/55; PULSE 72; RESP 18; TEMP 36.3; O2SAT 98
[2024-10-04] MEDS: LACTATED RINGERS 1,000 ML 150 ML IV CONT (11:29)
--- NOTE | 2024-10-04 11:45 | WPDANESEPPF ---
Anes - Initial Pre Proc Eval Procedure: Operation Date: 10/04/24 12:30 Proposed Procedures p Esophagogastroduodenoscopy - Spencer Hoyos MD Date/Time: 10/04/24 11:45 Surgeon: Spencer Hoyos MD Pre Op Diagnosis: Paula's esophagus, GERD, aphagia Patient Data Age: 79 Gender: M Height: 1.83 m Weight: 64.7 kg Last Vital Signs Temp 97.4 F L 10/04/24 11:19 Pulse 72 10/04/24 11:19 Resp 18 10/04/24 11:19 BP 140/55 L 10/04/24 11:19 Pulse Ox 98 10/04/24 11:19 O2 Del Method Room Air 10/04/24 11:19 Allergies Allergy/AdvReac Type Severity Reaction Status Date / Time No Known Allergies Allergy Verified 10/04/24 11:16 Home Medications ?Medication ?Instructions ?Recorded ?Confirmed ?Type hydrocodone 10 mg-acetaminophen 1 tablet PO Q8H PRN Pain 08/14/19 10/04/24 History 325 mg tablet cyanocobalamin (vitamin B-12) 1,000 mcg PO DAILY 07/23/20 10/04/24 History 1,000 mcg tablet morphine See Rx Instructions .Route .COMPLEX 07/23/20 10/03/24 History aspirin 81 mg tablet 81 mg PO DAILY 12/31/21 10/04/24 History nitroglycerin 0.4 mg sublingual 0.4 mg sublingual Q5-10M PRN Chest 12/31/21 10/03/24 History tablet Pain cetirizine 10 mg tablet 10 mg PO DAILY PRN Allergy Symptoms 12/25/22 10/04/24 History sennosides 8.6 mg tablet (senna) 25.8 mg PO BID 12/25/22 10/04/24 History cholecalciferol (vitamin D3) 50 50 mcg PO DAILY 06/17/23 10/04/24 History mcg (2,000 unit) capsule pantoprazole 40 mg tablet,delayed 40 mg PO BID 90 days #180 tabs 11/22/23 10/04/24 Rx release atorvastatin 20 mg tablet 20 mg PO DAILY #90 tabs 03/17/24 10/04/24 Rx acetaminophen 325 mg tablet 325 mg PO DAILY PAIN 05/23/24 10/04/24 History (Tylenol) lidocaine 5 % topical patch 1 patch transdermal DAILY PRN Pain 05/23/24 10/03/24 History mirtazapine 30 mg tablet 30 mg PO HS 05/23/24 10/04/24 History mupirocin 2 % topical ointment 1 applic topical BID 05/23/24 10/04/24 History naproxen 375 mg tablet 375 mg PO BID PRN pain 05/23/24 10/03/24 History vibegron 75 mg tablet (Gemtesa) 75 mg PO HS 05/23/24 10/04/24 History nitrofurantoin See Rx Instructions PO .COMPLEX 09/18/24 10/04/24 Rx monohydrate/macrocrystals 100 mg #30 caps capsule (Macrobid) collagenase clostridium histo. 250 1 applic topical DAILY 10/03/24 10/04/24 History unit/gram topical ointment (Santyl) trimethoprim 100 mg tablet 100 mg PO HS 10/03/24 10/04/24 History Patient hx anesthesia problems: none Family hx anesthesia problems: none Results Review: All pre-operative results and documents have been reviewed as part of the pre-operative evaluation. FORMERLY [facility] Past Medical History Medical History (Reviewed 08/15/24 @ 09:10 by Twyla Siddiqi, [facility]) Abnormal CT lung screening Abnormal findings on esophagogastroduodenoscopy (EGD) 11.6.20 paula's esophagus/ path pending esophageal web bougied Acute sepsis Allergic rhinitis Anxiety Arthritis, lumbar spine Paula's esophagus without dysplasia Barretts esophagus BMI 20.0-20.9, adult BMI 21.0-21.9, adult BMI 24.0-24.9, adult BMI 28.0-28.9,adult BMI 29.0-29.9,adult BPH w/o urinary obs/LUTS CAD (coronary artery disease) Carpal tunnel syndrome Chronic back pain with active pain pump Chronic UTI Colon cancer screening DDD (degenerative disc disease) Delirium due to general medical condition Depression Dextroscoliosis Diastolic dysfunction Diverticulosis Elevated blood pressure reading without diagnosis of hypertension Elevated troponin Encounter for Medicare annual wellness exam Encounter to establish care Esophageal web egd 11.6.20 bougied Esophagitis Facial injury Fall Follow up GERD (gastroesophageal reflux disease) Heel pain History of angina History of heart attack Hypercholesteremia Hyperlipidemia, unspecified Hypertension Infectious encephalopathy Left cataract Nicotine dependence Nicotine dependence, cigarettes, uncomplicated Nicotine dependence, unspecified, uncomplicated Normocytic anemia Occlusion and stenosis of bilateral carotid arteries On mcc drug therapy Open wound of right heel Other intervertebral disc degeneration, thoracic region Personal history of nicotine dependence Pneumonia Preop cardiovascular exam PVD (peripheral vascular disease) Sleep apnea Sleep apnea Spinal cord stimulator status Spinal stenosis 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 Urethral stricture dilated UTI (urinary tract infection) Vitamin B6 deficiency Vitamin D deficiency Wound of right foot Surgical History Surgical History (Reviewed 08/15/24 @ 09:10 by Twyla Siddiqi [facility]) History of angioplasty History of appendectomy (~1975) History of circumcision (~12/2021) History of laminectomy (~01/13/19) History of repair of right rotator cuff (~1998) Hx of cardiac cath with 3 stents Family History Family History (Reviewed 08/15/24 @ 09:10 by Twyla Siddiqi [facility]) Grandparent Diabetes mellitus Mother Family history of cardiovascular disease Acute myocardial infarction Hyperlipidemia Father Family history of Alzheimer's disease Sibling Alive and well Social History Social History (Reviewed 08/15/24 @ 09:10 by Twyla Siddiqi [facility]) Social History: lives at home with . PCP is Dr. Israel Smoking packs per day: 1 Smoking cigarettes per day: 20.0 Years smoked: 60 Smoking pack-years: 60.00 Smoking status: Former smoker Tobacco type: cigarettes Second hand tobacco smoke exposure: Yes Alcohol intake: current Drinks per week: 0 Alcohol use details: Social use Substance use: never Substance use type: does not use Lack of Transportation: No Lack of Food: Never True Current Housing: I Have Housing Concerned About Future Housing: No Difficulty Paying Gas/Electric Bills: Decline to Answer Difficulty Paying for Meds: Decline to Answer Currently Unemployed: Decline to Answer Education: Decline to Answer Difficulty w/ Childcare or Family Care: No Living arrangements: with family Occupation/Education: retired Gender identity (if verbalized by the patient): Male Spiritual care concerns: No Agree to blood products: Yes Anes - Eval Final PreProcedure Day of Procedure 10/04/24 11:45 Patient weight: normal Heart: regular rate and rhythm Lungs: clear to auscultation Airway: Mallampati scale class II Neurological: alert and oriented Last oral intake: >/= 8 hours ASA classification: III Emergent: no Anesthetic plan: proceed Anesthesia type and monitoring: general GIVS and standard monitoring Results Review: All pre-operative results and documents have been reviewed as part of the pre-operative evaluation. Informed Consent: The patient's anesthetic plan and its attendant risks and benefits were discussed with the patient/family/POA. Questions were solicited and answers provided to the satisfaction of the patient/family/POA.
--- NOTE | 2024-10-04 12:35 | P.HP_ITS ---
H&P: HPI History of Present Illness Date/Time: 10/04/24 12:35 Chief Complaint: Dysphagia - vomiting Narrative: the patient is a poor historian but states that over the past few weeks he has been experiencing intolerance to foods, not being able to define if it is dysphagia or vomiting. Regardless, patient describes retching and food coming up back to his mouth immediately after eating and has lost about 10 lb in the past few months. Review of Systems Review of Systems: All systems reviewed & are unremarkable except as noted in HPI and below PMFSH Past Medical History Medical History (Updated 10/04/24 @ 12:38 by Spencer Hoyos MD) Dysphagia BMI 20.0-20.9, adult Diverticulosis Colon cancer screening Encounter for Medicare annual wellness exam BMI 21.0-21.9, adult Preop cardiovascular exam Wound of right foot Chronic back pain with active pain pump Spinal cord stimulator status Fall Open wound of right heel Heel pain BMI 24.0-24.9, adult Dextroscoliosis Diastolic dysfunction Spinal stenosis Vitamin D deficiency Vitamin B6 deficiency Follow up BMI 28.0-28.9,adult 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 Personal history of nicotine dependence Chronic UTI BMI 29.0-29.9,adult On emt intermediate drug therapy Encounter to establish care Sleep apnea Facial injury Urethral stricture dilated Esophageal web egd ..20 bougied Abnormal findings on esophagogastroduodenoscopy (EGD) 07.26.20 paula's esophagus/ path pending esophageal web bougied Nicotine dependence Allergic rhinitis Carpal tunnel syndrome Nicotine dependence, cigarettes, uncomplicated Occlusion and stenosis of bilateral carotid arteries Other intervertebral disc degeneration, thoracic region Abnormal CT lung screening Arthritis, lumbar spine Paula's esophagus without dysplasia Elevated blood pressure reading without diagnosis of hypertension Hyperlipidemia, unspecified BPH w/o urinary obs/LUTS Nicotine dependence, unspecified, uncomplicated Normocytic anemia Esophagitis Infectious encephalopathy Elevated troponin Acute sepsis Delirium due to general medical condition Anxiety Depression DDD (degenerative disc disease) UTI (urinary tract infection) Barretts esophagus GERD (gastroesophageal reflux disease) Sleep apnea Pneumonia Hypertension Hypercholesteremia PVD (peripheral vascular disease) CAD (coronary artery disease) History of angina History of heart attack Left cataract Surgical History Surgical History History of circumcision (~12/2021) History of repair of right rotator cuff (~1998) History of laminectomy (~01/13/19) History of appendectomy (~1975) History of angioplasty Hx of cardiac cath with 3 stents Family History Family History Grandparent Diabetes mellitus Mother Family history of cardiovascular disease Acute myocardial infarction Hyperlipidemia Father Family history of Alzheimer's disease Sibling Alive and well Social History Social History Social History: lives at home with . PCP is Dr. Israel Smoking packs per day: 1 Smoking cigarettes per day: 20.0 Years smoked: 60 Smoking pack-years: 60.00 Smoking status: Former smoker Tobacco type: cigarettes Second hand tobacco smoke exposure: Yes Alcohol intake: current Drinks per week: 0 Alcohol use details: Social use Substance use: never Substance use type: does not use Lack of Transportation: No Lack of Food: Never True Current Housing: I Have Housing Concerned About Future Housing: No Difficulty Paying Gas/Electric Bills: Decline to Answer Difficulty Paying for Meds: Decline to Answer Currently Unemployed: Decline to Answer Education: Decline to Answer Difficulty w/ Childcare or Family Care: No Living arrangements: with family Occupation/Education: retired Gender identity (if verbalized by the patient): Male Spiritual care concerns: No Agree to blood products: Yes Meds Home Medications and Allergies Home Medications ?Medication ?Instructions ?Recorded ?Confirmed ?Type hydrocodone 10 mg-acetaminophen 1 tablet PO Q8H PRN Pain 08/14/19 10/04/24 History 325 mg tablet cyanocobalamin (vitamin B-12) 1,000 mcg PO DAILY 07/23/20 10/04/24 History 1,000 mcg tablet morphine See Rx Instructions .Route .COMPLEX 07/23/20 10/03/24 History aspirin 81 mg tablet 81 mg PO DAILY 12/31/21 10/04/24 History nitroglycerin 0.4 mg sublingual 0.4 mg sublingual Q5-10M PRN Chest 12/31/21 10/03/24 History tablet Pain cetirizine 10 mg tablet 10 mg PO DAILY PRN Allergy Symptoms 12/25/22 10/04/24 History sennosides 8.6 mg tablet (senna) 25.8 mg PO BID 12/25/22 10/04/24 History cholecalciferol (vitamin D3) 50 50 mcg PO DAILY 06/17/23 10/04/24 History mcg (2,000 unit) capsule pantoprazole 40 mg tablet,delayed 40 mg PO BID 90 days #180 tabs 11/22/23 10/04/24 Rx release atorvastatin 20 mg tablet 20 mg PO DAILY #90 tabs 03/17/24 10/04/24 Rx acetaminophen 325 mg tablet 325 mg PO DAILY PAIN 05/23/24 10/04/24 History (Tylenol) lidocaine 5 % topical patch 1 patch transdermal DAILY PRN Pain 05/23/24 10/03/24 History mirtazapine 30 mg tablet 30 mg PO HS 05/23/24 10/04/24 History mupirocin 2 % topical ointment 1 applic topical BID 05/23/24 10/04/24 History naproxen 375 mg tablet 375 mg PO BID PRN pain 05/23/24 10/03/24 History vibegron 75 mg tablet (Gemtesa) 75 mg PO HS 05/23/24 10/04/24 History nitrofurantoin See Rx Instructions PO .COMPLEX 09/18/24 10/04/24 Rx monohydrate/macrocrystals 100 mg #30 caps capsule (Macrobid) collagenase clostridium histo. 250 1 applic topical DAILY 10/03/24 10/04/24 History unit/gram topical ointment (Santyl) trimethoprim 100 mg tablet 100 mg PO HS 10/03/24 10/04/24 History Allergies Allergy/AdvReac Type Severity Reaction Status Date / Time No Known Allergies Allergy Verified 10/04/24 11:16 Vital Signs Vital Signs - 24 hr 10/04/24 11:19 Temperature 97.4 F L Pulse Rate 72 Respiratory Rate 18 Blood Pressure 140/55 L Pulse Oximetry 98 Oxygen Delivery Room Air Exam Const: General: cooperative and healthy appearing Resp: Effort & Inspection: normal respiratory effort and able to speak in complete sentences Auscultation: clear to auscultation bilaterally Cardio: Rate: regular rate Rhythm: regular rhythm GI: Inspection: normal to inspection GI Palp: No No hepatosplenomegaly present Auscultation: normal bowel sounds Rectal Exam: deferred Skin: General skin exam: normal color Psych: Appearance: grossly normal Mental Status: mental status grossly normal Assessment and Plan Assessment and plan (1) Dysphagia: Code(s): R13.10 - Dysphagia, unspecified Status: Acute Assessment and Plan: The patient is deemed a good candidate for the procedure. Consent signed. Will proceed.
[2024-10-04 13:09] VITALS: BP 133/51; PULSE 65; RESP 17; O2SAT 100
[2024-10-04 13:19] VITALS: BP 129/52; PULSE 60; RESP 20; O2SAT 100
[2024-10-04 13:29] VITALS: BP 125/57; PULSE 62; RESP 20; O2SAT 100
== END 2024-10-04 13:43 | disposition home or self-care (01) ==
PROVIDERS: PCP Internal Medicine; Referring Provider Nurse Practitioner; Visit Provider Internal Medicine Gastroenterology
PROC: 0DJ08ZZ Inspection of Upper Intestinal Tract, Via Natural or Artificial Opening Endoscopic (ICD-10-PCS; CPT 43239; principal; 2024-10-04 12:30)
DX: C15.5 Malignant neoplasm of lower third of esophagus (principal); K44.9 Diaphragmatic hernia without obstruction or gangrene; Z87.891 Personal history of nicotine dependence
CPT/HCPCS: 43239; 88305; 88342; J2003; J2704; J7120

== ENCOUNTER 2024-10-12 12:32 | Outpatient (CLI) | payer MEDICARE, SELFPAY ==
--- NOTE | ~2024-10-12 | CT_ITS ---
Clinical Indication: Esophageal mass CT Scan of the Chest, Abdomen, and Pelvis with Contrast: Technique: Contiguous sections were acquired throughout the chest, abdomen, and pelvis after intraven ous administration of 100 cc of Omnipaque 350. Dose reduction technique was used on this scan by josé luis arauz automated exposure control and iterative reconstruction technique. The dose-length product (DL P) was 623.35 mGy-cm. Comparison: 08/24/2024 Findings: There is no evidence of any significant mediastinal, hilar or axillary lymphadenopathy. 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 There is wall thickening of the distal esophagus, especially on the right side (ax ial image 87 for example).. There is no evidence of pleural or pericardial effusion. There there are mild peripheral chronic interstitial changes, worst at the lung bases. Stable calcifi ed granulomas. Stable 4 mm right lower lobe pulmonary nodule (axial image 59). Innumerable hypodense hepatic masses are present, compatible with numerous hepatic metastases. Larges t individual lesion measures approximately 3.1 cm in diameter. The spleen, pancreas, gallbladder, adr enals and kidneys are within normal limits. There is atherosclerotic calcification the aorta with inf rarenal abdominal aortic aneurysm measuring 4.3 cm in maximum diameter, just proximal to the bifurcat ion. 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 No lymphadenopathy. No bowel obstruction or bowel wall thickening. There is no evidence to suggest acute appendicitis. There is diffuse urinary bladder wall thickening. No pelvic mass seen. No ascites. There is probable chronic compression deformity of L4. There is diffuse degenerative spondylosis thro ughout the spine. Impression: Wall thickening of the distal esophagus, especially right side. This is suspicious for esophageal ann plasm given history and associated findings. Consider endoscopy for direct inspection/tissue sampling . Numerous hepatic metastases, as detailed above. Mild chronic pulmonary interstitial disease. 4.3 cm infrarenal abdominal aortic aneurysm. Left common iliac artery dilated to 2.2 cm. Findings compatible with cystitis. Correlate with urinalysis as indicated. Reviewed, dictated and finalized at location [facility]. [facility] Impression: Wall thickening of the distal esophagus, especially right side. This is suspici ous for esophageal neoplasm given history and associated findings. Consider end oscopy for direct inspection/tissue sampling. Numerous hepatic metastases, as detailed above. Mild chronic pulmonary interstitial disease. 4.3 cm infrarenal abdominal aortic aneurysm. Left common iliac artery dilated t o 2.2 cm. Findings compatible with cystitis. Correlate with urinalysis as indicated.
[2024-10-12 13:06] LABS: Estimated Glomerular Filt Rate > 60
== END 2024-10-12 12:33 | disposition home or self-care (01) ==
PROVIDERS: PCP Internal Medicine; Visit Provider Internal Medicine Gastroenterology
DX: J44.9 Chronic obstructive pulmonary disease, unspecified (principal); I71.43 Infrarenal abdominal aortic aneurysm, without rupture; K22.89 Other specified disease of esophagus
CPT/HCPCS: 71260; 74177; Q9967

== ENCOUNTER 2024-10-22 14:24 | Inpatient (IN) | payer MEDICARE, SELFPAY ==
--- NOTE | ~2024-10-22 | XR_ITS ---
EXAMINATION: XR chest 1V portable DATE: 10/22/2024 17:19 INDICATION: Altered mental status. Dehydration. TECHNIQUE: frontal view of the chest was obtained. COMPARISON: Chest CT dated 10/12/2024 and chest radiograph dated 05/22/2024 FINDINGS: There are coarse reticular opacities in the bilateral lower lung zones, right greater left consistent with chronic interstitial lung disease. No new airspace opacities, pleural effusion or pneumothorax. The cardiomediastinal silhouette is normal. Cervicothoracic posterior spinal fusion with bilateral v ertical rods with lateral mass screws at C6 and C7 and pedicle screws at T1. Again seen are electrode s in the soft tissues posterior to the upper thorax. There are thin metallic foreign body projecting over the central mediastinum which is without correlate on the prior study most likely external to th e patient. 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 IMPRESSION: 1. Unchanged mild bibasilar chronic interstitial lung disease. No acute cardiopulmonary disease. Reviewed, dictated and finalized at location A. T PERFORMER IMPRESSION: 1. Unchanged mild bibasilar chronic interstitial lung disease. No acute cardiop ulmonary disease.
--- NOTE | ~2024-10-22 | XR_ITS ---
EXAMINATION: XR chest port-a-cath/central DATE: 10/25/2024 15:25 INDICATION: Port placement. TECHNIQUE: A single frontal view of the chest was obtained. COMPARISON: Chest single view 10/22/2024 FINDINGS: There are interstitial opacities in the lower lung zones. No pleural effusion or pneumothor ax. The heart size is normal. There is a right subclavian port with tip at superior cavoatrial juncti on. Electrodes overlie the chest. There are changes of posterior fusion procedure in cervical thoraci c spine. IMPRESSION: 1. Port tip at the superior cavoatrial junction. 2. Stable interstitial opacities in the lower lung zones, consistent with chronic interstitial lung d isease. Reviewed, dictated and finalized at location A. ROOM TABLE ATTENDANT IMPRESSION: 1. Port tip at the superior cavoatrial junction. 2. Stable interstitial opacities in the lower lung zones, consistent with chron ic interstitial lung disease.
--- NOTE | ~2024-10-22 | XR_ITS ---
INTRAOPERATIVE FLUOROSCOPY: CLINICAL HISTORY: 79 years old Male; TOSHA CATH INSERTION RIGHT SIDE PROCEDURE COMMENTS: Limited intraoperative fluoroscopy of the mediastinum was performed. CUMULATIVE DOSE: 5.9 mGy FLUOROSCOPY TIME: 36.5 seconds FINDINGS/IMPRESSION: Please refer to operative note for further details. Reviewed, dictated and finalized at location A. HEN BATH DESIGNER
--- NOTE | ~2024-10-22 | CT_ITS ---
CT head without contrast Indication: Altered mental status COMPARISON: 05/22/2024 Technique: Serial scans were obtained through the brain without the administration of contrast. Dose reduction technique was used on this scan by utilizing automated exposure control and iterative recon struction technique. The dose-length product (DLP) was 681.00 mGy-cm. Findings: There is no evidence of intracranial hemorrhage, mass lesion, or acute infarct. The ventri cles and subarachnoid spaces are dilated, consistent with moderate atrophy. Low attenuation regions are seen within the periventricular white matter bilaterally, likely representing changes from chroni c microvascular ischemic disease. There is no evidence of edema, mass effect or midline shift. The visualized paranasal sinuses and mastoid air cells are clear. Impression: No intracranial hemorrhage, mass, or acute infarct. Atrophy and chronic white matter changes, as above. Reviewed, dictated and finalized at location . OW INSTALLER Impression: No intracranial hemorrhage, mass, or acute infarct. Atrophy and chronic white matter changes, as above.
--- NOTE | ~2024-10-22 | CT_ITS ---
CLINICAL INDICATION: 79-year-old gentleman with a history of esophageal cancer diagnosed 10/04/2024 pr esents with leukocytosis and altered mental status COMPARISON: 10/12/2024. TECHNIQUE: Multiple contiguous axial images of the abdomen and pelvis were performed following the ad ministration of with 100 mL Omnipaque-350 intravenous contrast The dose-length product (DLP) was 647.61 mGy-cm. Automated exposure control and iterative reconstruction technique were employed. FINDINGS/OBSERVATIONS: Chest: The bilateral lung orourke are clear. The heart is of normal size, without pericardial effusion. Left paratracheal lymphadenopathy is identified. The largest lymph node measuring 9 mm in short axis dimension. A gastroesophageal stent is identified extending into the stomach, presumably traversing the esophage al mass, biopsy-proven malignancy. Liver: Redemonstration of multiple areas of decreased attenuation within the liver, consistent with metastat ic disease, and unchanged from prior. Of note, these areas are amenable to percutaneous biopsy, shoul d that become necessary. The portal vein is patent without a filling defect, although is markedly enlarged. Gallbladder and biliary system: The gallbladder is only minimally distended, and otherwise unremarkable. Pancreas: The pancreas enhances homogeneously without ductal dilatation. Spleen: The spleen enhances homogeneously and is not enlarged measuring 4 cm in longitudinal dimension. Kidneys: The bilateral kidneys enhance symmetrically without hydronephrosis or renal calculi. Adrenal glands: Unremarkable. Gastrointestinal tract: Colonic diverticulosis without surrounding inflammatory change. Fecal stasis within the colon. Appendix: The appendix is not definitively visualized. However, no pericecal inflammatory change is identified suggest the presence of acute appendicitis. Vasculature: Aneurysmal dilatation of the infrarenal abdominal aorta to a maximal diameter of 4.2 cm. This is unch anged from prior. Mural thrombus is noted, also unchanged. Lymph nodes: No pathologically enlarged or morphologically suspicious lymph nodes within the retroperitoneum or at the root of the mesentery. Pelvic structures: The bladder is distended, and otherwise unremarkable. The prostate gland is not enlarged. Body wall and musculoskeletal: Significant degenerative disease within the lumbosacral spine, with osteophyte formation, disc space narrowing, endplate changes and vacuum phenomena. Straightening of the normal lordotic curvature of the lumbar spine is present. No lytic or blastic lesions are present. IMPRESSION: Gastroesophageal stent in position. Innumerable areas of decreased attenuation within the liver, for which metastatic disease is suspecte d. Findings consistent with patient's known esophageal cancer with a patent gastroesophageal stent. Persistent infrarenal abdominal aortic aneurysm, unchanged in size. 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 Reviewed, dictated and finalized at location A. ACTION OPERATOR IMPRESSION: Gastroesophageal stent in position. Innumerable areas of decreased attenuation within the liver, for which metastat ic disease is suspected. Findings consistent with patient's known esophageal cancer with a patent gastro esophageal stent. Persistent infrarenal abdominal aortic aneurysm, unchanged in size. 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
--- OUTSIDE RECORDS SUMMARY | 2024-10-22 13:25 | XMS_ITS | Continuity of Care Document ---
Author Organization [facility] Address [address] [place] [address] [address] [place] [address] Phone Care Team Providers Care Fruit And Vegetable Classer Name Role Phone [facility] [employer] Unavailable Unavail able Germania Núñez Unavailable Unavailable Procedures Procedure Date Anti-reflective Coating Eye Exam & Treatment Refraction Advance Directives Directive Yes / No Effective Date File Name No Information Encounters Encounter Description Practice Location Reason(s) For Visit Diagnoses Date Provider Providers Copied on Encounter [facility], [address] [place] [address] [address], [place], [place], [id number], tel:[phone] [facility] No Information [facility] [employer] . [address] [facility], [facility] [address], [place], [id number], [place]. tel:[phone] Consulting Provider: Germania Núñez, [address] [place] [address], [facility]. tel:[phone] [facility], [address] [place] [address] [address], [place], [place], [id number], tel:[phone] [facility] No Information [address] [employer] [address] , [address], [place], [address], [place]. tel:[phone] Family History Family Member Type Diagnosis Age At Onset No Information Payers Payer name Insurance type Covered constitution party ID Authoriza tion(s) No Information Social History Type Description Quantity Date Captured Comments Sex Male Smoking Status No Information Chief Complaint And Reason For Visit No Information Reason For Referral Reason For Referral No Information History Of Present Illness Encounter Date Complaint History Of Prese nt Illness No Information Functional Status Date Functional Assessmen t No Information Instructions Date Instruction Additional Infor mation No Information Assessments Type Assessment Date No Information Patient Care Teams Name Effective Dates (start - stop) Status Members No Information
--- OUTSIDE RECORDS SUMMARY | 2024-10-22 13:25 | XMS_ITS | Encounter Summary ---
Author Organization [facility] Address [address] [place] [address] Care Team Providers Care Pacs Specialist Name Role Phone Unavailable Primary Care Provider Unavailabl e Encounter Details Date Type Department Care Team (Late st Contact Info) Description 11/07/2007 Outpatient Historical [facility] Cardiology [facility] 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
--- OUTSIDE RECORDS SUMMARY | 2024-10-22 13:25 | XMS_ITS | Clinical Summary ---
Author Organization 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 Gender Identity Not on file Sexual Orientation Not on file Plan of Treatment Upcoming Encounters Date Type Department Care Team (Late st Contact Info) Description 10/23/2024 9:00 AM APPLIANCE SERVICE TECHNICIAN Office Visit [facility] Oncology and Hematology - [place] [address] [facility] [address] [place] [address] Jose Armando Carroll MD [address] [facility] [address] [place] [address] Health Maintenance Due Date Last Done Comments DTAP/TDAP/TD VACCINES (1 - Tdap) 1965 PNEUMOCOCCAL VACCINE 65+ YEARS (1 of 1 - PCV) 07/17/19 96 ZOSTER VACCINE (1 of 2) 1996 RSV VACCINE (60+ or ) (1 - 1-dose 75+ series) 2021 INFLUENZA VACCINE (#1) 2024 [place] Prev entative Visit/Annual Wellness Visit 09/20/2024 Insurance [facility] [id number]
--- OUTSIDE RECORDS SUMMARY | 2024-10-22 13:25 | XMS_ITS | Encounter Summary ---
Author Organization [facility] Address [address] [place] [address] Care Team Providers Care Floor Runner Name Role Phone Unavailable Primary Care Provider Unavailabl e Encounter Details Date Type Department Care Team (Latest Contact Info) Description 11/04/2007 Outpatient Historical [employer]SE [employer]PER Richard Craft MD [address] [facility] [address] [place] [address] Cor Athrscl-Uns Vessel Social History Tobacco Use Types Packs/Day Years Used Date Smoking Tobacco: Never Assessed Sex and Gender Information Value Date Recorded Sex Assigned at Not on file Legal Sex Male 5:30 AM [employer] Gender Identity Not on file Sexual Orientation Not on file documented as of this encounter Plan of Treatment Upcoming Encounters Date Type Department Care Team (Late st Contact Info) Description 10/23/2024 9:00 AM [employer] Office Visit [facility] Oncology and Hematology - [place] [address] [facility] [address] [place] [address] Jose rAmando Carroll MD [address] [facility] [address] [place] [address] documented as of this encounter Procedures Procedure Name Priority Date/Time Associated Diagnosis Comments CL CORONARY ANGIOGRAM Routine 11/07/2007 11:34 AM [employer] documented in this encounter Results * CL CORONARY ANGIOGRAM (11/07/2007 11:34 AM [employer]) Narrative INTERFACE SYSTEM - 11/07/2007 11:34 AM [employer] [facility] [address] [place] [address] [email or web address] Cardiac Catheterization Comprehensive Report Patient: ?Gregory Scherer Study ID: ? [id number] Gender: ? M : ?1945 Age: ?62 years Race: ? 1 Room: Bed: Height: ? 72 in ( 182.9 cm ) Study Date: ? November 07, 2007 Patient status: Outpatient Weight: ? 220 lb ( 100 kg ) Access. #: ?[id number] POC: Attending MD: ?? John Performing MD: ??John Indications and History: HISTORY: Prior cardiovascular procedures: of the distal RCA ( Sep 2007 ). 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 Now admitted today for elective PCI of a LAD lesion that was found at that time Procedure(s) Performed: DIAGNOSTIC PROCEDURES: Selective coronary angiography. SUPPORT INTERVENTIONS: Angioplasty. Stent. Study Conclusions: SUMMARY - ??A successful drug eluting stent with balloon angioplasty was performed on the 90 % lesion in the proximal LAD. Following intervention there was an excellent angiographic appearance with a 0 % residual stenosis. - ??successful PTCA and stenting of the proximalLAD using a 3x13mm Cypher device COMPLICATIONS: There were no complications. Description of Procedure: BACKGROUND INFORMATION: Contrast ( Optiray, 100 ml ) was administered during the procedure. The patient was given 750.000 mcg/kg/hr Angiomax Bolus(IVP) 5mg/ml. The patient was given 1.800 mg/kg/hr Angiomax Drip 250mg/50ml. The patient was given 325.000 mg ASPIRIN. The patient was given 50.000 mL (IV) IV Solutions. The patient was given 3.000 l/min OXYGEN. The patient was given 2.000 mg VERSED (IVP). NARRATIVE: Coronary Interventions: FIRST LESION: First lesion Summary: A successful drug eluting stent with balloon angioplasty was performed on the 90 % lesion in the proximal LAD. Following intervention there was an excellent angiographic appearance with a 0 % residual stenosis. Condition1: --- ??Pressure mmHg ?Rate ?dPdt AO ?? 118-S/ 60-D, 83-M ??56 BPM Prepared and Electronically Authenticated Richard Craft MD Confirmed November 07, 2007 11:25:41 Procedure Note Provider, Historical - 11/25/2007 [address] [address] [place] [address] [email or web address] Cardiac Catheterization Comprehensive Report Patient: Gregory Scherer Study ID: [id number] Gender: M : 1945 Age: 62 years Race: 1 Room: Bed: Height: 72 in ( 182.9 cm ) Study Date: November 07, 2007 Patient status: Outpatient Weight: 220 lb ( 100 kg ) Access. #: [id number] POC: Attending MD: John Garcia MD: John Indications and History: HISTORY: Prior cardiovascular procedures: of the distal RCA ( Sep 2007 ). Pt who recently underwent RCA stenting in the setting of IWOR. Now admittedtoday for elective PCI of a LAD lesion that was found at that time Procedure(s) Performed: DIAGNOSTIC PROCEDURES: Selective coronary angiography. SUPPORT INTERVENTIONS: Angioplasty. Stent. Study Conclusions: SUMMARY - A successful drug eluting stent with balloon angioplasty wasperformed on the 90 % lesion in the proximal LAD. Following intervention there was an excellent angiographic appearance with a 0 % residual stenosis. - successful PTCA and stenting of the proximalLAD using a 3x13mm Cypher device COMPLICATIONS: There were no complications. Description of Procedure: BACKGROUND INFORMATION: Contrast ( Optiray, 100 ml ) was administered during the procedure. The patient was given 750.000 mcg/kg/hr Angiomax Bolus(IVP) 5mg/ml. Thepatient was given 1.800 mg/kg/hr Angiomax Drip 250mg/50ml. The patient was given 325.000 mg ASPIRIN. The patient was given 50.000 mL (IV) IV Solutions.The patient was given 3.000 l/min OXYGEN. The patient was given 2.000 mgVERSED (IVP). NARRATIVE: Coronary Interventions: FIRST LESION: First lesion Summary: A successful drug eluting stent with balloon angioplasty was performed on the 90 % lesion in the proximal LAD.Following intervention there was an excellent angiographic appearance with a 0 % residual stenosis. Condition1: --- Pressure mmHg Rate dPdt AO 118-S/ 60-D, 83-M 56 BPM Prepared and Electronically Authenticated Richard Craft MD Confirmed November 07, 2007 11:25:41 us Richard Craft MD FLUOROSCOPY ORDERABLES Fi nal Result INTERFACE SYSTEM Refer to clinic/hospital department documented in this encounter Visit Diagnoses Diagnosis Coronary atherosclerosis of unspecified type of vessel, [place] or graft documented in this encounter
--- OUTSIDE RECORDS SUMMARY | 2024-10-22 13:26 | XMS_ITS | Referral Summary ---
Author Organization [facility] Address [address] [place] [address] Care Team Providers Care Manager Social Name Role Phone Alejandro Flynn MD Primary Care Provider [phone] Richard Craft MD Unavailable [phone] Jacob Aragon MD Unavailable [phone] Addison Winchester NP Unavailable [phone] Encounters Date Type Department Care Team Description 10/10/2024 Telephone [facility] Scheduling [address] [place] [address] [place] Scheduling Appointments 10/09/2024 10:00 AM ASSOCIATE PROFESSOR OF ART HISTORY - 10/09/2024 11:59 PM ASSOCIATE PROFESSOR OF ART HISTORY Hospital Encounter [facility] [address] [place] [address] Addiosn Winchester NP Long-term current use of opiate analgesic (Primary Dx); Cervicalgia; Chronic bilateral low back pain without sciatica; Lumbosacral spondylosis without myelopathy; Spinal stenosis of lumbar region without neurogenic claudication; Radiculopathy, lumbosacral region; Spondylosis of lumbar region without myelopathy or radiculopathy; Thoracic spine pain; Lumbar post-laminectomy syndrome; Presence of intrathecal pump Discharge Disposition: Discharge to home or self care 09/27/2024 Orders Only [facility] at [address] [place] [phone] Umang Nicole MD PVD (peripheral vascular disease) (HCC) (Primary Dx); Left subclavian artery occlusion; Stenosis of right carotid artery; Subclavian steal syndrome; Infrarenal abdominal aortic aneurysm (AAA) without rupture (HCC) 09/27/2024 10:00 AM ASSOCIATE PROFESSOR OF ART HISTORY Office Visit [facility] at [address] [place] [phone] Umang Nicole MD Infrarenal abdominal aortic aneurysm (AAA) without rupture (HCC) (Primary Dx); Mixed hyperlipidemia; Subclavian steal syndrome; PVD (peripheral vascular disease) (HCC) 09/26/2024 3:00 PM ASSOCIATE PROFESSOR OF ART HISTORY Ancillary Procedure [facility] at [address] [place] [phone] Bilateral carotid artery stenosis 09/26/2024 2:00 PM ASSOCIATE PROFESSOR OF ART HISTORY Ancillary Procedure [facility] at [address] [place] [phone] Infrarenal abdominal aortic aneurysm (AAA) without rupture (HCC) 09/26/2024 1:00 PM ASSOCIATE PROFESSOR OF ART HISTORY Ancillary Procedure [facility] at [address] [place] [phone] Atherosclerotic PVD with intermittent claudication (HCC); Other specified symptoms and signs involving the circulatory and respiratory systems 09/06/2024 3:11 PM ASSOCIATE PROFESSOR OF ART HISTORY - 09/06/2024 11:59 PM ASSOCIATE PROFESSOR OF ART HISTORY Hospital Encounter [facility] [address] [place] [phone] Addison Winchester NP Lumbar post-laminectomy syndrome (Primary Dx); Cervical spinal stenosis; Thoracic spine pain; Spondylosis without myelopathy or radiculopathy, cervicothoracic region Discharge Disposition: Discharge to home or self care 08/23/2024 2:36 PM ASSOCIATE PROFESSOR OF ART HISTORY - 08/23/2024 11:59 PM ASSOCIATE PROFESSOR OF ART HISTORY Hospital Encounter [facility] [address] [place] [phone] Inderjit Goodman MD Thoracic spine pain; Other spondylosis, thoracic region Discharge Disposition: Discharge to home or self care 08/21/2024 Orders Only [facility] [address] [facility] [address] [place] [phone] Umang Nicole MD Atherosclerotic PVD with intermittent claudication (HCC) (Primary Dx); Infrarenal abdominal aortic aneurysm (AAA) without rupture (HCC); Bilateral carotid artery stenosis; Other specified symptoms and signs involving the circulatory and respiratory systems 07/26/2024 10:17 AM ASSOCIATE PROFESSOR OF ART HISTORY - 07/26/2024 11:59 PM ASSOCIATE PROFESSOR OF ART HISTORY Hospital Encounter [facility] [address] [place] [address] Addison Winchester NP Spondylosis of lumbar region without myelopathy or radiculopathy (Primary Dx); Lumbar post-laminectomy syndrome; Presence of intrathecal pump; Thoracic spine pain; Chronic bilateral low back pain without sciatica; Other spondylosis, thoracic region Discharge Disposition: Discharge to home or self care from Last 3 Months Allergies Active Allergy Reactions Criticality Noted Date Comments Tamsulosin Dizziness Low 08/21/2022 Medications vitamin b complex tabletIndication s:Vitamin Deficiency Take 1 tablet by mouth every morning 1000 mcg Active PAIN PUMP, EXTERNAL PHARMACY, 4.2 ml Morphine Continuously running; able to give bolus if needed 0.5mg/mi solution. Active nitroglycerin (NITROSTAT) 0.4 mg SL tablet DISSOLVE 1 TABLET UNDER THE TONGUE EVERY 5 MINUTES NEEDED FOR CHEST PAIN 25 tablet 11 1 Active acetaminophen 500 mg capsuleIndicatio ns:Pain Take 2 capsules (1,000 mg total) by mouth every 6 (six) hours as needed for pain 3 Active aspirin 81 mg enteric coated tabletIndication s:Myocardial Reinfarction Prevention,preve ntion of thrombosis Take 1 tablet (81 mg total) by mouth every morning May restart 2 weeks post-op. February 15 can restart 3 Active senna-docusate (PERICOLACE) 8.6-50 mg Take 2 tablets by mouth 2 (two) times a day 3 Active atorvastatin (Lipitor) 20 mg tabletIndication s:coronary artery disease,hyperlip idemia Take 1 tablet (20 mg total) by mouth every morning 3 10/31/19 25 Active cholecalciferol (Vitamin D3) 1,000 unit capsuleIndicatio ns:Osteoporosis, Vitamin D Deficiency Take 2 capsules (2,000 Units total) by mouth every morning 3 10/31/[address] (Protonix) 40 mg EC tabletIndication s:Stress Ulcer Prophylaxis,Adelaida tment of Non-Bleeding Gastric Disorder Take 1 tablet (40 mg total) by mouth 2 (two) times a day 3 10/31/19 25 Active cetirizine (ZyrTEC) 10 mg tablet 0 3 Active trospium (SANCTURA) 20 mg tablet Take 1 tablet (20 mg total) by mouth 2 (two) times a day 3 Active trimethoprim (TRIMPEX) 100 mg tablet Take 1 tablet (100 mg total) by mouth daily Active lidocaine (LIDODERM) 5 % PLACE 1 PATCH ON THE SKIN DAILY, REMOVE AND DISCARD PATCH WITHIN 12 HOURS OR DIRECTED BY DOCTOR 30 patch 1 3 Active chlorhexidine (PERIDEX) 0.12 % solution RINSE WITH 15ML FOR 30 SECONDS TWICE DAILY AFTER BREAKFAST AND AT BEDTIME . AVOID FOOD OR DRINK FOR 30 MINUTES AFTER 3 Active Gemtesa 75 mg tablet Take 1 tablet by mouth nightly at bedtime. 3 Active lidocaine (LIDODERM) 5 %Indications:Lum bar post-laminectomy syndrome,Thoraci c spine pain,Spinal stenosis of lumbar region without neurogenic claudication,Rad iculopathy, lumbosacral region Place 1 patch on the skin daily Remove & discard patch within 12 hours or as directed by MD. 30 patch 6 4 Active doxycycline hyclate 100 mg capsule Take 1 tablet/capsul e (100 mg total) by mouth daily 4 Active mupirocin (BACTROBAN) 2 % ointment Apply topically 4 Active mirtazapine (REMERON) 30 mg tablet Take 1 tablet (30 mg total) by mouth nightly 30 tablet 11 4 03/21/20 25 Active HYDROcodone-acet aminophen (NORCO) 10-325 mg per tabletIndication s:Pain Take 1 tablet by mouth every 12 (twelve) hours as needed for pain 60 tablet 4 Active Mitigo, PF, 10 mg/mL solution 0 4 Active naproxen (NAPROSYN) 375 mg tabletIndication s:Lumbar post-laminectomy syndrome TAKE 1 TABLET(375 MG) BY MOUTH TWICE DAILY NEEDED FOR PAIN 60 tablet 3 4 Active HYDROcodone-acet aminophen (NORCO) 10-325 mg per tabletIndication s:Pain Take 1 tablet by mouth every 12 (twelve) hours as needed for pain 60 tablet 5 11/25/19 25 Active HYDROcodone-acet aminophen (NORCO) 10-325 mg per tabletIndication s:Pain Take 1 tablet by mouth every 12 (twelve) hours as needed for pain 60 tablet 5 12/25/19 25 Active HYDROcodone-acet aminophen (NORCO) 10-325 mg per tabletIndication s:Pain Take 1 tablet by mouth every 12 (twelve) hours as needed for pain 60 tablet 4 09/25/19 25 Discontin ued(Reord er) HYDROcodone-acet aminophen (NORCO) 10-325 mg per tabletIndication s:Pain Take 1 tablet by mouth every 12 (twelve) hours as needed for pain 60 tablet 5 10/09/19 25 Discontin ued(Reord er) Active Problems Problem Noted Date Diagnosed Date PVD (peripheral vascular disease) 09/28/2024 Assessment & Plan (09/28/2024 1:20 PM ASSOCIATE PROFESSOR OF ART HISTORY): Moderate occlusive disease bilaterally. 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 They report it is healing. We did discuss if the healing Stalls or unable to heal completely I would recommend a lower extremity angiogram possible intervention. We will follow up in 3 months for repeat evaluation. Spondylosis of lumbar region without myelopathy or radiculopathy 05/10/2024 Atherosclerosis with claudication of extremity 0 10/15/2023 Thoracic spine pain 03/16/2023 Myofascial pain 03/12/2023 Cervical myelopathy 02/01/2023 Impaired mobility 11/30/2022 Heel ulceration, right, with fat layer exposed 0 11/27/2022 Assessment & Plan (11/27/2022 10:41 AM ASSOCIATE PROFESSOR OF ART HISTORY): New right heel ulceration to the right posterior heel. Currently being treated with Santyl and oral doxycycline per Podiatry. Continues to have pain to the site denies any purulent drainage. Lower extremity Doppler 11/26/2022 shows triphasic waveforms the left lower extremity and distal biphasic waveforms to the right lower extremity. Plan: Obtain a three-phase bone scan with right foot x-ray to check for any underlying osteomyelitis to the right heel. He is already on oral antibiotics and to continue those. Return in 2 weeks for re-evaluation. Cervical spinal stenosis 10/06/2022 Overview (10/06/2022): Added automatically from request for surgery [id number] Venous congestion 09/29/2022 Assessment & Plan (09/29/2022 1:22 PM ASSOCIATE PROFESSOR OF ART HISTORY): Venous congestion: Left foot discoloration associated with venous congestion as patient has been minimally ambulatory over the past couple of days secondary to postprocedure. No concern for arterial, venous etiology. Patient has palpable distal pulses, motor and sensory are intact. No further workup required. Subclavian artery stenosis (CMS/HCC) 09/10/2022 Stenosis of carotid artery 08/11/2022 Overview (08/11/2022): Added automatically from request for surgery [id number] Subclavian steal syndrome 07/28/2022 Assessment & Plan (09/28/2024 1:19 PM ASSOCIATE PROFESSOR OF ART HISTORY): Status post left carotid subclavian bypass. Continue risk factor modification with ASA statin therapy. Follow up in 1 year with repeat duplex. Left subclavian artery occlusion 07/28/2022 Assessment & Plan (11/27/2022 10:32 AM ASSOCIATE PROFESSOR OF ART HISTORY): Continues to recover well. Denies any symptoms his upper extremities or any dizziness with exertion. Scheduled to follow-up in December with carotid duplex. Assessment & Plan (09/29/2022 1:23 PM ASSOCIATE PROFESSOR OF ART HISTORY): Left subclavian steal syndrome: Patient status post left carotid subclavian formed 09/10/2022. Patient doing well status post surgical intervention. Remains asymptomatic. Patient to follow-up in the office in 3 months with repeat imaging Lumbar post-laminectomy syndrome 04/17/2021 Presence of intrathecal pump 12/10/2020 Mixed hyperlipidemia 02/23/2020 Assessment & Plan (09/28/2024 1:18 PM ASSOCIATE PROFESSOR OF ART HISTORY): Stable continue Lipitor Assessment & Plan (02/23/2020 2:54 PM CDT): Impression: Hyperlipidemia currently on pharmacotherapy. Plan: Continue ongoing statin therapy as directed by PCP. Primary osteoarthritis of left knee 08/01/2019 Chronic pain of left knee 07/26/2019 Idiopathic scoliosis and kyphoscoliosis 12/24/19 19 Overview (12/23/2018): Added automatically from request for surgery [id number] Spinal stenosis of lumbar re gion without neurogenic claudication 10/27/2018 Radiculopathy, lumbosacral region 10/27/2018 Aneurysm artery, iliac (CMS/HCC) 10/07/2018 Abdominal aortic aneurysm (AAA) without rupture 08/04/2018 Overview (08/04/2018): 06/29/2018 ultrasound measured 3.3 x 3.3 cm, CT scan measured 3.1 x 3.7 cm Assessment & Plan (09/28/2024 1:19 PM ASSOCIATE PROFESSOR OF ART HISTORY): 4 cm AAA. Needs ongoing surveillance with repeat aortoiliac duplex in 1 year. Assessment & Plan (04/08/2022 3:39 PM CDT): Currently measures 3.1 x 3.5 cm via aortic duplex. Previously measured 3.25 x 3.37 cm via abdominal duplex 04/03/2021. Patient seen with Dr. Aragon. Plan: Return in 1 year with aortic duplex. Assessment & Plan (02/23/2020 2:54 PM CDT): Impression: Small asymptomatic infrarenal abdominal aortic aneurysm measuring 3.2 cm in greatest transverse dimension on recent aortic duplex. Plan: No surgical intervention currently needed. Recommend ongoing risk factor modifications and follow-up in 1 year for re-evaluation with repeat aortic duplex surveillance. 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 Alcohol Use Standard Drinks/Week Comments Yes 0 (1 standard drink = 0.6 oz pur e alcohol) occassional AUDIT-C Answer Date Recorded Q1: How often do you have a drink containing alcohol? Never 04/07/2024 Q2: How many drinks containi ng alcohol do you have on a typical day when you are drinking? Patient does not drink Q3: How often do you have si x or more drinks on one occasion? Never 04/07/2024 Personal Safety Answer Date Recorded Have you ever been in or are you currently in a harmful physical or emotional relationship or is someone making you feel afraid or unsafe? 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, self-employed realtor Not on file Not on file Not on file Last Filed Vital Signs Vital Sign Reading Time Taken Comments Blood Pressure 133/78 10/09/2024 10:29 AM ASSOCIATE PROFESSOR OF ART HISTORY Pulse 66 10/09/2024 10:29 AM ASSOCIATE PROFESSOR OF ART HISTORY Temperature 36.5 ??C (97.7 ??F) 08/23/2024 2:59 PM CS T Respiratory Rate 17 10/09/2024 10:29 AM ASSOCIATE PROFESSOR OF ART HISTORY Oxygen Saturation 100% 10/09/2024 10:29 AM ASSOCIATE PROFESSOR OF ART HISTORY Inhaled Oxygen Concentration - - Weight 72.6 kg (160 lb) 09/27/2024 10:14 AM ASSOCIATE PROFESSOR OF ART HISTORY Height 182.9 cm (6') 09/27/2024 10:14 AM ASSOCIATE PROFESSOR OF ART HISTORY Body Mass Index 21.7 09/27/2024 10:14 AM ASSOCIATE PROFESSOR OF ART HISTORY Plan of Treatment Not on file Medical Devices Implanted Type Area Poultry Scalder Device Identifier Shelf Expiration Date Model / Serial / Lot Stent Implanted:Qty: 3 Stent N/A: Coronary Artery [employer] 27262 Neurostimulator Implantable Chronic Pain Rs2 - [id number] - [id number] Implanted:Qty: 1 on 06/16/2018 by Inderjit Goodman MD at [facility] N/A: Back Med[employer] Inc 02/14/2019 78770 / [id number] / Med[employer]onic Inc 8782 Ascenda 2 Attached Collet Spinal Segment Revision Catheter - [id number] - [id number] Implanted:Qty: 1 on 01/13/2019 by Hilario Kumar MD at [facility] Spine Lumbar [employer] Inc 12/22/2019 8782 / [id number] / Med[employer]onic Inc 91071 Neurostimulator Implantable Chronic Pain Rs2 - [id number] - [id number] Implanted:Qty: 1 on 05/11/2019 by Inderjit Goodman MD at [facility] N/A: Back [employer] Inc 02/01/2020 75052 / [id number] / Medtronic Neuro 8637-20 Synchromed Ii .78in Sykeston Filter Mesh Pouch Programmable - [id number] - [id number] Implanted:Qty: 1 on 05/06/2021 by Inderjit Goodman MD at [facility] N/A: Abdomen Med[employer] Inc 10/17/2022 8637-20 / [id number] / [employer] 8mm 40cm Stretch Peripheral Thin Wall Graft Vascular Winton-Frankie [id number] - [id number] - [id number] Implanted:Qty: 1 on 09/10/2022 by Jacob Aragon MD at [facility] Left: Subclavian Artery [employer] [id number] 03/17/2027 [id number] / [id number] / Nuvasive Inc Screw Spine Reline C Lock Open Non-Sterile Latex Free [id number] - [id number] Implanted:Qty: 8 on 02/01/2023 by Domingo Srinivasan MD at [facility] N/A: Spine Cervical [employer] [id number] / / Nuv[employer] Inc Andreas Spine Reline C Ti Prebent 4.0x70mm Latex Free [id number] - [id number] Implanted:Qty: 2 on 02/01/2023 by Domingo Srinivasan MD at [facility] N/A: Spine Cervical [employer] Inc [id number] / / Nuvasive Reline C 5.0x35mm Red Screw Implanted:Qty: 2 on 02/01/2023 by Domingo Srinivasan MD at [facility] N/A: Spine Cervical [employer] Inc [id number] / N/A / Abyrx Hemasorb Os-Spa Spatula Wax 2gm Bone Sterile Os-201 - [id number] Implanted:Qty: 1 on 02/01/2023 by Domingo Srinivasan MD at [facility] N/A: Spine Thoracic Abyrx [id number] 02/17/2025 OS-201 / / [id number] [employer] Graft Bone Magnetos 10cc 1-2mm Granules In Moldable Putty [id number] - Sn/A - [id number] Implanted:Qty: 1 on 02/01/2023 by Domingo Srinivasan MD at [facility] N/A: Spine Cervical [employer] [id number] 12/19/2024 703-038- [id number] / N/A / [id number] Nuvasive Inc Screw Spine Reline C Ma 3.5x16mm Non-Sterile Latex Free [id number] - [id number] Implanted:Qty: 6 on 02/01/2023 by Domingo Srinivasan MD at [facility] N/A: Spine Cervical [employer] Inc [id number] / / Explanted Type Area Poultry Scalder Device Identifier Shelf Expiration Date Model / Serial / Lot Spinal Cord Stimulator Generator Explanted:Qty: 1 on 05/11/2019 by Inderjit Goodman MD at [facility] N/A: Back Medtronic [id number] / / Procedures Procedure Name Priority Date/Time Associated Diagnosis Comments US CAROTIDS DUPLEX BILATERAL Schedule Routine, Read Routine (OP Routine) 09/26/2024 2:37 PM ASSOCIATE PROFESSOR OF ART HISTORY Bilateral carotid artery stenosis US DUPLEX SCAN AORTA, IVC ILIAC COMPLETE Schedule Routine, Read Routine (OP Routine) 09/26/2024 2:37 PM ASSOCIATE PROFESSOR OF ART HISTORY Infrarenal abdominal aortic aneurysm (AAA) without rupture (HCC) US ARTERIAL DOPPLER LOWER EXTREMITY BILATERAL Schedule Routine, Read Routine (OP Routine) 09/26/2024 2:37 PM ASSOCIATE PROFESSOR OF ART HISTORY Atherosclerotic PVD with intermittent claudication (HCC) Other specified symptoms and signs involving the circulatory and respiratory systems PAIN MGMT IMAGING CERVICAL/THORACIC FACET/MEDIAL BRANCH BLOCK BILATERAL Schedule Routine, Read Routine (OP Routine) 08/23/2024 3:32 PM ASSOCIATE PROFESSOR OF ART HISTORY Thoracic spine pain Other spondylosis, thoracic region CTA ABDOMEN PELVIS W WO CONTRAST Routine 08/23/2015 12:00 AM ASSOCIATE PROFESSOR OF ART HISTORY from Last 3 Months or Most Recently Relevant to Health Maintenance Results * US Carotids Duplex Bilateral (09/26/2024 2:37 PM ASSOCIATE PROFESSOR OF ART HISTORY) LV EF % CONS SCIMAGE Anatomical Region Laterality Modality Vascular Bilateral Ultrasound 09/26/2024 1:04 PM ASSOCIATE PROFESSOR OF ART HISTORY Narrative 09/27/2024 10:23 AM ASSOCIATE PROFESSOR OF ART HISTORY Vascular & Vein Surgery [address] [place] [address] Carotid Duplex Ultrasound Report Patient Name: ELZA SCHERER W : 1945 (79y 2m) Study Date: 09/26/2024 1:04:36 PM Gender: M Neuropsychology Division Chief: LUIS E Location: [facility] Ref Provider: UMANG NICOLE ?Quality: Adequate Order Provider: UMANG NICOLE ?? PROCEDURES: Carotid Report: Carotid duplex examination of the extracranial arteries was performed using 2D, color and spectral Doppler. ?? INDICATIONS: S/P Lt CCA-SCA BPG 09/10/22 and I65.23 Occlusion and stenosis of bilateral carotid arteries. ?? HISTORY: Hyperlipidemia. Coronary artery disease S/P stent. Former smoker. ?? COMPARISONS: The previous exam was completed on 10/14/23. ?? MEASUREMENTS: Right ?Value ? Left ? Value RT Prox CCA PSV ?78 cm/sec ? Lt Subc PSV ?171 cm/sec RT Prox CCA EDV ?9 cm/sec ?LT Prox CCA PSV ?126 cm/sec RT Distal CCA PSV ?69 cm/sec ? LT Prox CCA EDV ?5 cm/sec RT Distal CCA EDV ?12 cm/sec ? LT Distal CCA PSV ?68 cm/sec RT Prox ICA PSV ?101 cm/sec ?LT Distal CCA EDV ?11 cm/sec RT Prox ICA EDV ?25 cm/sec ? LT Prox ICA PSV ?45 cm/sec RT Mid ICA PSV ? 108 cm/sec ?LT Prox ICA EDV ?10 cm/sec RT Mid ICA EDV ? 19 cm/sec ? LT Mid ICA PSV ? 84 cm/sec RT Distal ICA PSV ?65 cm/sec ? LT Mid ICA EDV ? 21 cm/sec RT Distal ICA EDV ?22 cm/sec ? LT Distal ICA PSV ?92 cm/sec RT ECA Prx PSV ? 47 cm/sec ? LT Distal ICA EDV ?26 cm/sec RT ICA/CCA ? 1.46 ratio ?LT ECA Prx PSV ? 69 cm/sec Rt Vert Dst PSV ?104 cm/sec ?LT ICA/CCA ? 0.66 ratio Lt Vert Dst PSV ?41 cm/sec - ?? FINDINGS: Rt Common Carotid Artery: The plaque in the right CCA appears to be heterogeneous. Rt Internal Carotid Artery: The plaque in the right internal carotid artery appears to be heterogeneous, calcified and irregular. Atherosclerotic changes of the right internal carotid artery without hemodynamically significant Doppler findings. <50% stenosis. Unable to replicate prior elevated velocity. Rt External Carotid Artery: Patent right external carotid artery with evidence of atherosclerotic disease present. Rt Vertebral Artery: The right vertebral artery is patent with antegrade flow. Lt Common Carotid Artery: Duplex imaging of the left common carotid artery is within normal limits without evidence of atherosclerotic disease. Lt Internal Carotid Artery: The plaque in the left internal carotid artery appears to be heterogeneous and smooth. Atherosclerotic changes of the left internal carotid artery without hemodynamically significant Doppler findings. <50% stenosis. Lt External Carotid Artery: The left external carotid artery is patent without evidence of atherosclerotic plaque. Lt Vertebral Artery: The left vertebral artery is patent with antegrade flow. Comments: Brachial artery systolic blood pressure is 144 on the right, 129 on the left. Patent left common carotid to subclavian artery bypass graft with velocities of 306 (proximal anastomosis), 194, 178, 133, 172 (distal anastomosis). Unable to visualize a 0.32 cm segment of the right proximal ICA due to calcific shadowing. ?? CONCLUSIONS: 1. The right internal carotid artery disease is consistent with a less than 50% stenosis. 2. The left internal carotid artery disease is consistent with a less than 50% stenosis. 3. Patent left carotid subclavian bypass with mildly elevated velocities at the proximal anastomosis. ?? ATTESTATION: I have reviewed and interpreted the pertinent images and measurements of this study. I attest to the conclusions in the final report that is provided above. Electronically Signed By: Umang Nicole MD B 09/27/2024 10:22:59 AM ASSOCIATE PROFESSOR OF ART HISTORY Procedure Note Umang Nicole MD - 09/27/2024 Vascular & Vein Surgery [address] [place] [address] Carotid Duplex Ultrasound Report Patient Name: ELZA SCHERER W : 1945 (79y 2m) Study Date: 09/26/2024 1:04:36 PM Gender: M Neuropsychology Division Chief: Location: [facility] Ref Provider: UMANG NICOLE Quality: Adequate Order Provider: UMANG NICOLE PROCEDURES: Carotid Report: Carotid duplex examination of the extracranial arterieswas performed using 2D, color and spectral Doppler. INDICATIONS: S/P Lt CCA-SCA BPG 12/22/22 and I65.23 Occlusion and stenosis of bilateralcarotid arteries. HISTORY: Hyperlipidemia. Coronary artery disease S/P stent. Former smoker. COMPARISONS: The previous exam was completed on 10/14/23. MEASUREMENTS: Right Value Left Value RT Prox CCA PSV 78 cm/sec Lt Subc PSV 171 cm/sec RT Prox CCA EDV 9 cm/sec LT Prox CCA PSV 126 cm/sec RT Distal CCA PSV 69 cm/sec LT Prox CCA EDV 5 cm/sec RT Distal CCA EDV 12 cm/sec LT Distal CCA PSV 68 cm/sec RT Prox ICA PSV 101 cm/sec LT Distal CCA EDV 11 cm/sec RT Prox ICA EDV 25 cm/sec LT Prox ICA PSV 45 cm/sec RT Mid ICA PSV 108 cm/sec LT Prox ICA EDV 10 cm/sec RT Mid ICA EDV 19 cm/sec LT Mid ICA PSV 84 cm/sec RT Distal ICA PSV 65 cm/sec LT Mid ICA EDV 21 cm/sec RT Distal ICA EDV 22 cm/sec LT Distal ICA PSV 92 cm/sec RT ECA Prx PSV 47 cm/sec LT Distal ICA EDV 26 cm/sec RT ICA/CCA 1.46 ratio LT ECA Prx PSV 69 cm/sec Rt Vert Dst PSV 104 cm/sec LT ICA/CCA 0.66 ratio Lt Vert Dst PSV 41 cm/sec - FINDINGS: Rt Common Carotid Artery: The plaque in the right CCA appears to beheterogeneous. Rt Internal Carotid Artery: The plaque in the right internal carotidartery appears to be heterogeneous, calcified and irregular. Atherosclerotic changes of theright internal carotid artery without hemodynamically significant Doppler findings. <50%stenosis. Unable to replicate prior elevated velocity. Rt External Carotid Artery: Patent right external carotid artery withevidence of atherosclerotic disease present. Rt Vertebral Artery: The right vertebral artery is patent with antegradeflow. Lt Common Carotid Artery: Duplex imaging of the left common carotid arteryis within normal limits without evidence of atherosclerotic disease. Lt Internal Carotid Artery: The plaque in the left internal carotid arteryappears to be heterogeneous and smooth. Atherosclerotic changes of the left internalcarotid artery without hemodynamically significant Doppler findings. <50% stenosis. Lt External Carotid Artery: The left external carotid artery is patentwithout evidence of atherosclerotic plaque. Lt Vertebral Artery: The left vertebral artery is patent with antegradeflow. Comments: Brachial artery systolic blood pressure is 144 on the right, 129on the left. Patent left common carotid to subclavian artery bypass graft withvelocities of 306 (proximal anastomosis), 194, 178, 133, 172 (distal anastomosis). Unable tovisualize a 0.32 cm segment of the right proximal ICA due to calcific shadowing. CONCLUSIONS: 1. The right internal carotid artery disease is consistent with a lessthan 50% stenosis. 2. The left internal carotid artery disease is consistent with a less than50% stenosis. 3. Patent left carotid subclavian bypass with mildly elevated velocitiesat the proximal anastomosis. ATTESTATION: I have reviewed and interpreted the pertinent images and measurements ofthis study. I attest to the conclusions in the final report that is provided above. Electronically Signed By: Umang Nicole MD [facility] 09/27/2024 10:22:59 AM ASSOCIATE PROFESSOR OF ART HISTORY Umang Nicole MD [facility] [place] US PROCEDURES Final Result * US Duplex Scan Aorta, IVC Iliac Complete (09/26/2024 2:37 PM ASSOCIATE PROFESSOR OF ART HISTORY) LV EF % CONS SCIMAGE Anatomical Region Laterality Modality Vascular N/A Ultrasound 09/26/2024 1:36 PM ASSOCIATE PROFESSOR OF ART HISTORY Narrative 09/27/2024 10:22 AM ASSOCIATE PROFESSOR OF ART HISTORY Vascular & Vein Surgery [facility] [place] [address] Abdominal Aortic Duplex Ultrasound Report Patient Name: ELZA SCHERERRosalva : 1945 Study Date: 09/26/2024 1:36:32 PM Gender: M Neuropsychology Division Chief: Location: [facility] Ref Provider: UMANG NICOLE ?Quality: Adequate Order Provider: UMANG NICOLE ?? PROCEDURES: Arterial Report: Duplex ultrasound imaging of the abdominal aorta. ?? INDICATIONS: I71.43 Infrarenal abdominal aortic aneurysm, without rupture. ?? HISTORY: Hyperlipidemia. Coronary artery disease S/P stent. Former smoker. ?? COMPARISONS: The previous exam was completed on 10/14/23. ?? MEASUREMENTS: Velocities ?Value ?Diameters ? Value Aorta Prx PSV ? 67.00 cm/sec ? Aorta Prx AP Dim ?2.99 cm Aorta Mid PSV ? 58.00 cm/sec ? Aorta Prx Trans Dim ? 2.27 cm Aorta Dst PSV ? 50.00 cm/sec ? Aorta Mid AP Dim ?2.39 cm Rt Com Iliac Prx PSV ?160.00 cm/sec ?Aorta Mid Trans Dim ? 2.40 cm Lt Com Iliac Prx PSV ?173.00 cm/sec ?Aorta Dst AP Dim ?4.04 cm Aorta Dst Trans Dim ? 3.89 cm Rt Com Iliac Prx AP Dim ? 1.44 cm Rt Com Iliac Prx Trans Dim ?1.39 cm Lt Com Iliac Prx AP Dim ? 1.86 cm Lt Com Iliac Prx Trans Dim ?1.72 cm - ?? MEASUREMENTS: ?? FINDINGS: Study Quality: Technically difficult. Abdominal Aorta: Infrarenal abdominal aortic aneurysm measurin.04 x 3.89 cm. Atherosclerotic plaque noted. Flow velocities and spectral waveforms are within normal limits. Compared to the prior study, there is increase in diameter of distal aorta and left common iliac artery. Tortuous mid to distal aorta and bilateral common iliac arteries. ?? CONCLUSIONS: 1. 4 cm x 3.9 cm infrarenal abdominal aortic aneurysm. ?? ATTESTATION: I have reviewed and interpreted the pertinent images and measurements of this study. I attest to the conclusions in the final report that is provided above. Electronically Signed By: Umang Nicole MD [facility] 09/27/2024 10:21:44 AM ASSOCIATE PROFESSOR OF ART HISTORY Procedure Note Umang Nicole MD - 09/27/2024 Vascular & Vein Surgery [address] [place] [address]. [place] [address] Abdominal Aortic Duplex Ultrasound Report Patient Name: ELZA SCHERER W : 1945 Study Date: 09/26/2024 1:36:32 PM Gender: M Neuropsychology Division Chief: Location: [facility] Ref Provider: UMANG NICOLE Quality: Adequate Order Provider: UMANG NICOLE PROCEDURES: Arterial Report: Duplex ultrasound imaging of the abdominal aorta. INDICATIONS: I71.43 Infrarenal abdominal aortic aneurysm, without rupture. HISTORY: Hyperlipidemia. Coronary artery disease S/P stent. Former smoker. COMPARISONS: The previous exam was completed on 10/14/23. MEASUREMENTS: Velocities Value DiametersValue Aorta Prx PSV 67.00 cm/sec Aorta Prx AP Dim2.99 cm Aorta Mid PSV 58.00 cm/sec Aorta Prx Trans Dim2.27 cm Aorta Dst PSV 50.00 cm/sec Aorta Mid AP Dim2.39 cm Rt Com Iliac Prx PSV 160.00 cm/sec Aorta Mid Trans Dim2.40 cm Lt Com Iliac Prx PSV 173.00 cm/sec Aorta Dst AP Dim4.04 cm Aorta Dst Trans Dim 3.89 cm Rt Com Iliac Prx AP Dim 1.44 cm Rt Com Iliac Prx Trans Dim 1.39 cm Lt Com Iliac Prx AP Dim 1.86 cm Lt Com Iliac Prx Trans Dim 1.72 cm - MEASUREMENTS: FINDINGS: Study Quality: Technically difficult. Abdominal Aorta: Infrarenal abdominal aortic aneurysm measurin.04 x 3.89 cm.Atherosclerotic plaque noted. Flow velocities and spectral waveforms are within normal limits.Compared to the prior study, there is increase in diameter of distal aorta and left commoniliac artery. Tortuous mid to distal aorta and bilateral common iliac arteries. CONCLUSIONS: 1. 4 cm x 3.9 cm infrarenal abdominal aortic aneurysm. ATTESTATION: I have reviewed and interpreted the pertinent images and measurements ofthis study. I attest to the conclusions in the final report that is provided above. Electronically Signed By: Umang Nicole MD B 09/27/2024 10:21:44 AM ASSOCIATE PROFESSOR OF ART HISTORY us Umang Nicole MD IM US PROCEDURES Final Result * US Arterial Doppler Lower Extremity Bilateral (09/26/2024 2:37 PM ASSOCIATE PROFESSOR OF ART HISTORY) LV EF % CONS SCIMAGE Anatomical Region Laterality Modality Vascular Bilateral Ultrasound 09/26/2024 12:5 2 PM ASSOCIATE PROFESSOR OF ART HISTORY Narrative 09/27/2024 10:20 AM ASSOCIATE PROFESSOR OF ART HISTORY Vascular & Vein Surgery [address] [place] [id number] Lower Extremity Arterial Doppler Report Patient Name: ELZA SCHERER W : 1945 Study Date: 09/26/2024 12:52:00 PM Gender: M Neuropsychology Division Chief: Ember Bazzi RVMarlys Location: [facility] Ref Provider: UMANG NICOLE ?Quality: Adequate Order Provider: UMANG NICOLE ?? PROCEDURES: Arterial Report: Bilateral lower extremity arterial Doppler exam at rest. ?? INDICATIONS: I70.219 Atherosclerosis of [place] arteries of extremities with intermittent claudication, unspecified extremity and R09.89 Other specified symptoms and signs involving the circulatory and respiratory systems. ?? HISTORY: Hyperlipidemia. Coronary artery disease S/P stent. Former smoker. ?? COMPARISONS: The previous exam was completed on 10/14/23. Compared to prior there is slight improvement on the right, no significant change on the left. ?? MEASUREMENTS: Right ?Value ? Left ? Value Rt Brachial Pressure ? 144 mmHg ?Lt Brachial Pressure ? 129 mmHg Rt Low Thigh Pressure ?108 mmHg ?Lt Low Thigh Pressure ?154 mmHg Rt Calf Pressure ? 106 mmHg ?Lt Calf Pressure ? 128 mmHg Rt CHICKEN DRESSER Pressure ?106 mmHg ?Lt CHICKEN DRESSER Pressure ?108 mmHg Rt DPA Pressure ?122 mmHg ?Lt DPA Pressure ?139 mmHg Rt 1st Digit Pressure ?46 mmHg ? Lt 1st Digit Pressure ?0 mmHg Rt Low Thigh Index ? 0.75 ?Lt Low Thigh Index ? 1.07 Rt Calf Index ?0.74 ?Lt Calf Index ?0.89 Rt PT KATHIE Resting ?0.74 ?Lt PT KATHIE Resting ?0.75 Rt DP KATHIE Resting ?0.85 ?Lt DP KATHIE Resting ?0.97 Rt Digit 1/Arm Index ? 0.32 ?Lt Digit 1/Arm Index ? 0 - ?? FINDINGS: Right Common Femoral Artery Analysis: The common femoral artery waveform is triphasic. Right Popliteal Artery Analysis: The popliteal waveform is biphasic. Right Posterior Tibial Artery Analysis: The posterior tibial waveform is monophasic. Right Anterior Tibial Artery Analysis: The anterior tibial waveform is monophasic. Right Digits: The right digit waveform is dampened. Left Common Femoral Artery Analysis: The common femoral artery waveform is triphasic. Left Popliteal Artery Analysis: The popliteal waveform is triphasic. Left Posterior Tibial Artery Analysis: The posterior tibial waveform is monophasic. Left Anterior Tibial Artery Analysis: The anterior tibial waveform is biphasic. Left Digits: The left digit waveform is absent. ?? CONCLUSIONS: 1. Ankle-brachial index of 0.5-0.8 is consistent with claudication disease and moderate occlusive arterial disease in the bilateral lower extremities. 2. There is evidence of arterial insufficiency bilaterally at the level of infrapopliteal arteries. ?? ATTESTATION: I have reviewed and interpreted the pertinent images and measurements of this study. I attest to the conclusions in the final report that is provided above. Electronically Signed By: Umang Nicole MD [facility] 09/27/2024 10:20:20 AM ASSOCIATE PROFESSOR OF ART HISTORY Procedure Note Umang Nicole MD - 09/27/2024 Vascular & Vein Surgery [address] [place] [address] Lower Extremity Arterial Doppler Report Patient Name: ELZA SCHERER W : 1945 Study Date: 09/26/2024 12:52:00 PM Gender: M Neuropsychology Division Chief: Ember Bazzi RVT Location: [facility] Ref Provider: UMANG NICOLE Quality: Adequate Order Provider: UMANG NICOLE PROCEDURES: Arterial Report: Bilateral lower extremity arterial Doppler exam at rest. INDICATIONS: I70.219 Atherosclerosis of [place] arteries of extremities withintermittent claudication, unspecified extremity and R09.89 Other specified symptoms and signsinvolving the circulatory and respiratory systems. HISTORY: Hyperlipidemia. Coronary artery disease S/P stent. Former smoker. COMPARISONS: The previous exam was completed on 10/14/23. Compared to prior there is slight improvement on the right, no significantchange on the left. MEASUREMENTS: Right Value Left Value Rt Brachial Pressure 144 mmHg Lt Brachial Pressure 129 mmHg Rt Low Thigh Pressure 108 mmHg Lt Low Thigh Pressure 154 mmHg Rt Calf Pressure 106 mmHg Lt Calf Pressure 128 mmHg Rt CHICKEN DRESSER Pressure 106 mmHg Lt CHICKEN DRESSER Pressure 108 mmHg Rt DPA Pressure 122 mmHg Lt DPA Pressure 139 mmHg Rt 1st Digit Pressure 46 mmHg Lt 1st Digit Pressure 0 mmHg Rt Low Thigh Index 0.75 Lt Low Thigh Index 1.07 Rt Calf Index 0.74 Lt Calf Index 0.89 Rt PT KATHIE Resting 0.74 Lt PT KATHIE Resting 0.75 Rt DP KATHIE Resting 0.85 Lt DP KATHIE Resting 0.97 Rt Digit 1/Arm Index 0.32 Lt Digit 1/Arm Index 0 - FINDINGS: Right Common Femoral Artery Analysis: The common femoral artery waveform is triphasic. Right Popliteal Artery Analysis: The popliteal waveform is biphasic. Right Posterior Tibial Artery Analysis: The posterior tibial waveform is monophasic. Right Anterior Tibial Artery Analysis: The anterior tibial waveform is monophasic. Right Digits: The right digit waveform is dampened. Left Common Femoral Artery Analysis: The common femoral artery waveform is triphasic. Left Popliteal Artery Analysis: The popliteal waveform is triphasic. Left Posterior Tibial Artery Analysis: The posterior tibial waveform is monophasic. Left Anterior Tibial Artery Analysis: The anterior tibial waveform is biphasic. Left Digits: The left digit waveform is absent. CONCLUSIONS: 1. Ankle-brachial index of 0.5-0.8 is consistent with claudication diseaseand moderate occlusive arterial disease in the bilateral lower extremities. 2. There is evidence of arterial insufficiency bilaterally at the level ofinfrapopliteal arteries. ATTESTATION: I have reviewed and interpreted the pertinent images and measurements ofthis study. I attest to the conclusions in the final report that is provided above. Electronically Signed By: Umang Nicole MD [facility] 09/27/2024 10:20:20 AM ASSOCIATE PROFESSOR OF ART HISTORY us Umang Nicole MD IMG US PROCEDURES Final Result * Imaging Cervical/Thoracic Facet Medial Branch Block Bilateral (84180) (08/23/2024 3:32 PM ASSOCIATE PROFESSOR OF ART HISTORY) Narrative RAD_PACS_[facility] - 08/23/2024 3:33 PM ASSOCIATE PROFESSOR OF ART HISTORY The images from this study are not interpreted by Radiology. ??Please refer to the physician's procedure / OR operative note. Addison Winchester NP IM PAIN MGMT PROCEDURES Janis l Result RAD_PACS_CH * CTA Abdomen Pelvis (08/23/2015 12:00 AM ASSOCIATE PROFESSOR OF ART HISTORY) Anatomical Region Laterality Modality Body N/A Computed Tomogra phy 08/23/2015 Narrative 08/24/2015 2:36 PM ASSOCIATE PROFESSOR OF ART HISTORY PROCEDURE: ??CTA ABDOMEN PELVIS WITHOUT AND WITH CONTRAST WITH 3-D VOLUMETRIC RECONSTRUCTIONS HISTORY: ??AAA for further evaluation TECHNIQUE: ??Initial noncontrasted CT of abdomen pelvis was performed. ?? Subsequently contrast enhanced helical CT of the abdomen and pelvis was performed. 100 ml of Omnipaque-350 ??was administered uneventfully via the right antecubital vein. ??Imaging was performed on arterial and venous phase. ?? Reformatted coronal sat images were obtained and reviewed. ??Dedicated 3-D volumetric reconstruction images were obtained and reviewed. COMPARISON: ?? CTA FINDINGS: Noncontrasted phase: ??There is scattered moderate calcific atherosclerosis. ?? No definite evidence of intramural hematoma. Arterial phase: ??The distal abdominal aorta is patent. ??The celiac axis is widely patent and demonstrates normal trifurcation. ??The SMA is widely patent. The GIULIANA is widely patent. ??There is a single widely patent renal artery on the right side. ??There are 2 renal arteries to the left kidney with an accessory renal artery supplying the lower pole. ??Scattered areas of mild mural plaque is seen. ??There is aneurysmal dilatation of the infrarenal abdominal aorta immediately proximal to its bifurcation measuring a maximum of 3.2 cm (coronal image 85). ??There is additional aneurysmal dilatation of the left common iliac artery immediately prior to its bifurcation measuring maximum of 2.1 cm (coronal image 92). ??Scattered calcific atherosclerosis without evidence of high-grade stenosis is present within the external iliac arteries and internal iliac arteries bilaterally. Venous phase: ??No additional findings identified. CT ABDOMEN FINDINGS: Lung Bases: ??The lung bases are clear. Mild subpleural reticulation is noted suggestive of early fibrotic change Liver/Gallbladder/Bile Ducts: ??No focal liver lesions are identified. ??There are no radiopaque gallstones. ??There is no bile duct dilatation. Spleen/Pancreas/Kidneys/Adrenal Glands: ??The spleen, pancreas, kidneys, and adrenal glands are normal. Lymph Nodes/Peritoneum/Mesentery/Omentum: ??There is no upper abdominal free fluid, free air, or lymph node enlargement. Stomach and Bowel: ??No evidence of a bowel obstruction Body Wall: ??No significant osseous or soft tissue abnormalities are identified. Support Devices: ??None. CT PELVIS FINDINGS: Bladder: ??No focal abnormalities are identified. Prostate Gland/Seminal Vesicles: ??No focal abnormalities are identified. Lymph Nodes/Peritoneum/Mesentery/Omentum: ??There is no pelvic free fluid, free air, or lymph node enlargement. Bowel: Extensive uncomplicated diverticulosis Body Wall: ??No significant osseous or soft tissue abnormalities are identified. Support Devices: ??None. COMBINED CONCLUSIONS: ?? Aneurysmal dilatation of the infrarenal abdominal aorta immediately proximal to its bifurcation measuring a maximum 3.1 cm Aneurysmal dilatation of the left common iliac artery immediately prior to the bifurcation measuring a maximum of 2.1 cm. Accessory left renal artery supplying the lower pole. Moderate calcific atherosclerosis Extensive uncomplicated diverticulosis THIS IS AN ELECTRONICALLY VERIFIED REPORT 08/24/2015 2:32 PM: ??Sonido Caceres M.D. Sonido Caceres M.D. JA:kellie 08:39 AM 09:18 AM [facility] [EOD] Procedure Note Provider, MD [facility] - 02/05/2021 PROCEDURE: CTA ABDOMEN PELVIS WITHOUT AND WITH CONTRAST WITH 3-D VOLUMETRIC RECONSTRUCTIONS HISTORY: AAA for further evaluation TECHNIQUE: Initial noncontrasted CT of abdomen pelvis was performed. Subsequently contrast enhanced helical CT of the abdomen and pelvis was performed. 100 ml of Omnipaque-350 was administered uneventfully via the right antecubital vein. Imaging was performed on arterial and venousphase. Reformatted coronal sat images were obtained and reviewed. Dedicated 3-D volumetric reconstruction images were obtained and reviewed. COMPARISON: CTA FINDINGS: Noncontrasted phase: There is scattered moderate calcificatherosclerosis. No definite evidence of intramural hematoma. Arterial phase: The distal abdominal aorta is patent. The celiac axis is widely patent and demonstrates normal trifurcation. The SMA is widelypatent. The GIULIANA is widely patent. There is a single widely patent renal arteryon the right side. There are 2 renal arteries to the left kidney with an accessory renal artery supplying the lower pole. Scattered areas of mild mural plaque is seen. There is aneurysmal dilatation of the infrarenal abdominal aorta immediately proximal to its bifurcation measuring amaximum of 3.2 cm (coronal image 85). There is additional aneurysmal dilatation ofthe left common iliac artery immediately prior to its bifurcation measuring maximum of 2.1 cm (coronal image 92). Scattered calcific atherosclerosis without evidence of high-grade stenosis is present within the externaliliac arteries and internal iliac arteries bilaterally. Venous phase: No additional findings identified. CT ABDOMEN FINDINGS: Lung Bases: The lung bases are clear. Mild subpleural reticulation isnoted suggestive of early fibrotic change Liver/Gallbladder/Bile Ducts: Nofocal liver lesions are identified. There are no radiopaque gallstones. Thereis no bile duct dilatation. Spleen/Pancreas/Kidneys/Adrenal Glands: The spleen, pancreas, kidneys,and adrenal glands are normal. Lymph Nodes/Peritoneum/Mesentery/Omentum: There is no upper abdominalfree fluid, free air, or lymph node enlargement. Stomach and Bowel: No evidence of a bowel obstruction Body Wall: No significant osseous or soft tissue abnormalities are identified. Support Devices: None. CT PELVIS FINDINGS: Bladder: No focal abnormalities are identified. Prostate Gland/Seminal Vesicles: No focal abnormalities are identified. Lymph Nodes/Peritoneum/Mesentery/Omentum: There is no pelvic free fluid,free air, or lymph node enlargement. Bowel: Extensive uncomplicated diverticulosis Body Wall: No significant osseous or soft tissue abnormalities areidentified. Support Devices: None. COMBINED CONCLUSIONS: Aneurysmal dilatation of the infrarenal abdominal aorta immediatelyproximal to its bifurcation measuring a maximum 3.1 cm Aneurysmal dilatation of the left common iliac artery immediately prior tothe bifurcation measuring a maximum of 2.1 cm. Accessory left renal artery supplying the lower pole. Moderate calcific atherosclerosis Extensive uncomplicated diverticulosis THIS IS AN ELECTRONICALLY VERIFIED REPORT 08/24/2015 2:32 PM: Sonido Caceres M.D. Sonido Caceres M.D. JA:kellie 08:39 AM 09:18 AM [facility] [E[facility]] Kali Hurd MD IMG CT PROCEDURES Final Re sult from Last 3 Months or Most Recently Relevant to Health Maintenance Insurance MEDICARE SOLUTIONS [facility] MEDICARE Address: [address] [address] [place] [address] [facility] MEDICARE MEDICARE [facility] MEDICARE SOLUTIONS MEDICARE [facility] Advance Directives For more information, please contact: [phone] Documents on File Type Date Recorded Patient Pet [employer] Concierge Expl anation ADVANCE DIRECTIVE 02/01/2023 5:39 AM Power of Newspaper Managing Editor-Medical * Full Code (Latest Code Status on File) Date Activated Date Inactivated Comments 09/10/2022 2:23 PM 09/12/2022 7:46 PM * Full Code Date Activated Date Inactivated Comments 05/22/2021 10:58 AM 05/23/2021 4:51 AM * Full Code Date Activated Date Inactivated Comments 01/13/2019 7:44 PM 01/15/2019 6:40 PM * Full Code Date Activated Date Inactivated Comments 12/15/2018 1:24 PM 12/16/2018 4:52 AM Care Teams Manager Social Relationship Specialty Start Date End Date Alejandro Flynn MD [address] [place] [address] PCP - General Internal Medicine 07/09/22 Richard Craft MD [address] [place] [address] Consulting Physician Cardiology 09/07/22 Jacob Aragon MD [address] [facility] [address] [place] [address] Consulting Physician Vascular Surgery 09/12/22 [place] [id number] [facility] [address] [place] [address] Nurse Practitioner Pain Management 09/06/24
--- OUTSIDE RECORDS SUMMARY | 2024-10-22 13:26 | XMS_ITS | Encounter Summary ---
Author Organization [facility] Address [address] [place] [address] Care Team Providers Care Heavy Rail Train Operator Name Role Phone Unavailable Primary Care Provider Unavailabl e Encounter Details Date Type Department Care Team (Latest Contact Info) Description 10/12/2007 Inpatient Historical HIS CARDIAC PCU Richard Craft MD [address] [facility] [address] [place] [address] Acute, but Ill-Defined, Cerebrovascular Disease Social History Tobacco Use Types Packs/Day Years Used Date Smoking Tobacco: Never Assessed Sex and Gender Information Value Date Recorded Sex Assigned at Not on file Legal Sex Male 5:30 AM TECHNOLOGY AND ENGINEERING TEACHER Gender Identity Not on file Sexual Orientation Not on file documented as of this encounter Plan of Treatment Upcoming Encounters Date Type Department Care Team (Late st Contact Info) Description 10/23/2024 9:00 AM TECHNOLOGY AND ENGINEERING TEACHER Office Visit [facility] Oncology and Hematology - [place] [address] [facility] [address] [place] [address] Jose Armando Carroll MD [address] [facility] [address] [place] [address] documented as of this encounter Procedures Procedure Name Priority Date/Time Associated Diagnosis Comments CK TOTAL, RELATIVE INDEX Routine 10/14/2007 5:25 AM TECHNOLOGY AND ENGINEERING TEACHER CKMB W/REFLEX CK Routine 10/14/2007 5:25 AM TECHNOLOGY AND ENGINEERING TEACHER TROPONIN (W/REFLEX CKMB/CK) Routine 10/14/2007 5:25 AM TECHNOLOGY AND ENGINEERING TEACHER CBC WITH DIFFERENTIAL Routine 10/14/2007 5:25 AM TECHNOLOGY AND ENGINEERING TEACHER CBC WITH DIFFERENTIAL Routine 10/14/2007 5:25 AM TECHNOLOGY AND ENGINEERING TEACHER BASIC METABOLIC PANEL Routine 10/14/2007 5:25 AM TECHNOLOGY AND ENGINEERING TEACHER CK TOTAL, RELATIVE INDEX Routine 10/13/2007 1:56 PM TECHNOLOGY AND ENGINEERING TEACHER CKMB W/REFLEX CK Routine 10/13/2007 1:56 PM TECHNOLOGY AND ENGINEERING TEACHER TROPONIN (W/REFLEX CKMB/CK) Routine 10/13/2007 1:56 PM TECHNOLOGY AND ENGINEERING TEACHER CK TOTAL, RELATIVE INDEX Routine 10/13/2007 12:40 PM TECHNOLOGY AND ENGINEERING TEACHER CKMB W/REFLEX CK Routine 10/13/2007 12:4 0 PM TECHNOLOGY AND ENGINEERING TEACHER TROPONIN (W/REFLEX CKMB/CK) Routine 10/13/2007 12:40 PM TECHNOLOGY AND ENGINEERING TEACHER CBC WITH DIFFERENTIAL Routine 10/13/2007 11:00 AM TECHNOLOGY AND ENGINEERING TEACHER CBC WITH DIFFERENTIAL Routine 10/13/2007 11:00 AM TECHNOLOGY AND ENGINEERING TEACHER CK TOTAL, RELATIVE INDEX Routine 10/13/2007 4:28 AM TECHNOLOGY AND ENGINEERING TEACHER CKMB W/REFLEX CK Routine 10/13/2007 4:28 AM TECHNOLOGY AND ENGINEERING TEACHER TROPONIN (W/REFLEX CKMB/CK) Routine 10/13/2007 4:28 AM TECHNOLOGY AND ENGINEERING TEACHER CBC WITH DIFFERENTIAL Routine 10/13/2007 4:28 AM TECHNOLOGY AND ENGINEERING TEACHER CBC WITH DIFFERENTIAL Routine 10/13/2007 4:28 AM TECHNOLOGY AND ENGINEERING TEACHER PROTIME-INR Routine 10/13/2007 4:28 AM TECHNOLOGY AND ENGINEERING TEACHER PHOSPHORUS Routine 10/13/2007 4:28 AM TECHNOLOGY AND ENGINEERING TEACHER MAGNESIUM LEVEL Routine 10/13/2007 4:28 AM TECHNOLOGY AND ENGINEERING TEACHER LIPID PANEL Routine 10/13/2007 4:28 AM TECHNOLOGY AND ENGINEERING TEACHER BASIC METABOLIC PANEL Routine 10/13/2007 4:28 AM TECHNOLOGY AND ENGINEERING TEACHER PT AND APTT Routine 10/12/2007 2:10 PM TECHNOLOGY AND ENGINEERING TEACHER CBC WITH DIFFERENTIAL Routine 10/12/2007 2:10 PM TECHNOLOGY AND ENGINEERING TEACHER CBC WITH DIFFERENTIAL Routine 10/12/2007 2:10 PM TECHNOLOGY AND ENGINEERING TEACHER PHOSPHORUS Routine 10/12/2007 2:10 PM TECHNOLOGY AND ENGINEERING TEACHER MAGNESIUM LEVEL Routine 10/12/2007 2:10 PM TECHNOLOGY AND ENGINEERING TEACHER COMPREHENSIVE METABOLIC PANEL Routine 10/12/2007 2:10 PM TECHNOLOGY AND ENGINEERING TEACHER CK TOTAL, RELATIVE INDEX Routine 10/12/2007 1:00 PM TECHNOLOGY AND ENGINEERING TEACHER CKMB W/REFLEX CK Routine 10/12/2007 1:00 PM TECHNOLOGY AND ENGINEERING TEACHER TROPONIN (W/REFLEX CKMB/CK) Routine 10/12/2007 1:00 PM TECHNOLOGY AND ENGINEERING TEACHER documented in this encounter Results * CBC WITH DIFFERENTIAL (10/14/2007 5:25 AM TECHNOLOGY AND ENGINEERING TEACHER) NEUTROPHILS 55 45 - 70 % INTERFAC E SYSTEM LYMPHOCYTES 35 16 - 45 % INTERFAC E SYSTEM MONOCYTES 8 3 - 13 % INTERFACE SYSTEM EOSINOPHILS 3 0 - 7 % INTERFAC E SYSTEM BASOPHILS 0 0 - 2 % INTERFACE SYSTEM NEUTROPHIL ABSOLUTE 5.01 1.90 - 7.00 K/uL INTERFACE SYSTEM LYMPHOCYTE ABSOLUTE 3.16 0.70 - 4.50 K/uL INTERFACE SYSTEM MONOCYTE ABSOLUTE 0.72 0.10 - 1.30 K/uL INTERFACE SYSTEM EOSINOPHIL ABSOLUTE 0.25 0.00 - 0.70 K/uL INTERFACE SYSTEM BASOPHILS ABSOLUTE 0.03 0.00 - 0.20 K/uL INTERFACE SYSTEM 10/14/2007 5:25 AM TECHNOLOGY AND ENGINEERING TEACHER us Pushpa Briones MD HEMATOLOGY ORDERABLES Edited INTERFACE SYSTEM Refer to clinic/hospital department * (ABNORMAL) CBC WITH DIFFERENTIAL (10/14/2007 5:25 AM TECHNOLOGY AND ENGINEERING TEACHER) WBC 9.2 4.0 - 9.8 K/uL INTERFACE SYSTEM RBC 4.47(L) 4.50 - 5.40 M/uL INTERFACE SYSTEM HEMOGLOBIN 14.0 13.6 - 16.5 g/dL INTERFACE SYSTEM HEMATOCRIT 43.0 40.0 - 48.0 % INTERFACE SYSTEM MCV 96.2 82.0 - 99.0 fL INTERFACE SYSTEM MCH 31.3 27.2 - 32.6 pg INTERFACE SYSTEM MCHC 32.6 31.5 - 35.5 % INTERFACE SYSTEM RDW 12.9 11.5 - 14.5 % INTERFACE SYSTEM RDW-STDEV 44.7 37.1 - 48.7 fL INTERFACE SYSTEM PLATELETS 265 140 - 350 K/uL INTERFACE SYSTEM MPV 10.7 9.3 - 12.4 fL INTERFACE SYSTEM 10/14/2007 5:25 AM TECHNOLOGY AND ENGINEERING TEACHER Pushpa Briones MD HEMATOLOGY ORDERABLES Edited Performing Organization Address [facility] Phone Number INTERFACE SYSTEM Refer to clinic/hospital department * CK TOTAL, RELATIVE INDEX (10/14/2007 5:25 AM TECHNOLOGY AND ENGINEERING TEACHER) Pathologist [facility] CK 134 10 - 170 U/L INTERFACE SYSTEM CARDIAC RELATIVE INDEX N/A <=4.0 INTERFACE SYSTEM 10/14/2007 5:25 AM TECHNOLOGY AND ENGINEERING TEACHER Pushpa Briones MD CHEMISTRY ORDERABLES Edited Performing Organization Address [facility] Phone Number INTERFACE SYSTEM Refer to clinic/hospital department * (ABNORMAL) CKMB W/REFLEX CK (10/14/2007 5:25 AM TECHNOLOGY AND ENGINEERING TEACHER) CKMB 9.3(AA) <=6.7 ng/mL INTERFACE SYSTEM Comment:Results called to Ta mmi at 10/14/07 7:50 AM and read back verified. CKMB INTERP See Below INTERFAC E SYSTEM Comment:Elevated CKMB,Consis tent with Myocardial Injury. 10/14/2007 5:25 AM TECHNOLOGY AND ENGINEERING TEACHER Result [facility] Pushpa Briones MD CHEMISTRY ORDERABLES Edited Performing Organization Address [facility] Phone Number INTERFACE SYSTEM Refer to clinic/hospital department * BASIC METABOLIC PANEL (10/14/2007 5:25 AM TECHNOLOGY AND ENGINEERING TEACHER) GLUCOSE 96 65 - 99 mg/dL INTERFACE SYSTEM CREATININE 0.69 0.67 - 1.17 mg/dL INTERFACE SYSTEM CALCIUM 9.3 8.4 - 10.2 mg/dL INTERFACE SYSTEM BUN 16 6 - 20 mg/dL INTERFACE SYSTEM SODIUM 138 135 - 145 mmol/L INTERFACE SYSTEM POTASSIUM 3.9 3.5 - 4.9 mmol/L INTERFACE SYSTEM CHLORIDE 101 96 - 108 mmol/L INTERFACE SYSTEM CO2 30 22 - 30 mmol/L INTERFACE SYSTEM GFR, >60 >=60 mL/min/1.7 sq meter INTERFACE SYSTEM GFR >60 >=60 mL/min/1.7 sq meter INTERFACE SYSTEM Comment: Estimated GFR rate interpretative information for both Americans and non- Americans is available on the [facility] Intranet at: [email or web address] Select: Lab Policies and Procedures Select: Reference Ranges - GFR 10/14/2007 5:25 AM TECHNOLOGY AND ENGINEERING TEACHER Result [facility] Pushpa Briones MD CHEMISTRY ORDERABLES Edited Performing Organization Address [facility] Phone Number INTERFACE SYSTEM Refer to clinic/hospital department * (ABNORMAL) TROPONIN (W/REFLEX CKMB/CK) (10/14/2007 5:25 AM TECHNOLOGY AND ENGINEERING TEACHER) TROPONIN T 0.57(AA) <=0.03 ng/mL INTERFACE SYSTEM Comment:Persistent abnormal result TROPONIN T INTERP See Below INTERFACE SYSTEM Comment:Elevated Troponin-T, Consistent with Myocardial Injury 10/14/2007 5:25 AM TECHNOLOGY AND ENGINEERING TEACHER Result [facility] Pushpa Briones MD CHEMISTRY ORDERABLES Edited Performing Organization Address [facility] de Phone Number INTERFACE SYSTEM Refer to clinic/hospital department * (ABNORMAL) CK TOTAL, RELATIVE INDEX (10/13/2007 1:56 PM TECHNOLOGY AND ENGINEERING TEACHER) CK 276(H) 10 - 170 U/L INTERFACE SYSTEM CARDIAC RELATIVE INDEX 9.9(H) <=4.0 INTERFACE SYSTEM 10/13/2007 1:56 PM TECHNOLOGY AND ENGINEERING TEACHER Pushpa Briones MD CHEMISTRY ORDERABLES Edited Performing Organization Address [facility] de Phone Number INTERFACE SYSTEM Refer to clinic/hospital department * (ABNORMAL) CKMB W/REFLEX CK (10/13/2007 1:56 PM TECHNOLOGY AND ENGINEERING TEACHER) CKMB 27.4(AA) <=6.7 ng/mL INTERFACE SYSTEM Comment:Persistent abnormal result CKMB INTERP See Below INTERFAC E SYSTEM Comment:Elevated CKMB,Consis tent with Myocardial Injury 10/13/2007 1:56 PM TECHNOLOGY AND ENGINEERING TEACHER Pushpa Briones MD CHEMISTRY ORDERABLES Edited Performing Organization Address [facility] de Phone Number INTERFACE SYSTEM Refer to clinic/hospital department * (ABNORMAL) TROPONIN (W/REFLEX CKMB/CK) (10/13/2007 1:56 PM TECHNOLOGY AND ENGINEERING TEACHER) TROPONIN T 0.66(AA) <=0.03 ng/mL INTERFACE SYSTEM Comment:Persistent abnormal result TROPONIN T INTERP See Below INTERFACE SYSTEM Comment:Elevated Troponin-T, Consistent with Myocardial Injury 10/13/2007 1:56 PM TECHNOLOGY AND ENGINEERING TEACHER Pushpa Briones MD CHEMISTRY ORDERABLES Edited Performing Organization Address [facility] de Phone Number INTERFACE SYSTEM Refer to clinic/hospital department * (ABNORMAL) CK TOTAL, RELATIVE INDEX (10/13/2007 12:40 PM TECHNOLOGY AND ENGINEERING TEACHER) CK 296(H) 10 - 170 U/L INTERFACE SYSTEM CARDIAC RELATIVE INDEX 9.7(H) <=4.0 INTERFACE SYSTEM 10/13/2007 12:4 0 PM TECHNOLOGY AND ENGINEERING TEACHER us Helena Maddox MD CHEMISTRY ORDERABLES Edited Performing Organization Address City/[facility]/ZIP Co de Phone Number INTERFACE SYSTEM Refer to clinic/hospital department * (ABNORMAL) CKMB W/REFLEX CK (10/13/2007 12:40 PM TECHNOLOGY AND ENGINEERING TEACHER) CKMB 28.8(AA) <=6.7 ng/mL INTERFACE SYSTEM Comment:Persistent abnormal result CKMB INTERP See Below INTERFAC E SYSTEM Comment:Elevated CKMB,Consis tent with Myocardial Injury 10/13/2007 12:4 0 PM TECHNOLOGY AND ENGINEERING TEACHER Helena Maddox MD CHEMISTRY ORDERABLES Edited Performing Organization Address [facility] Co de Phone Number INTERFACE SYSTEM Refer to clinic/hospital department * (ABNORMAL) TROPONIN (W/REFLEX CKMB/CK) (10/13/2007 12:40 PM TECHNOLOGY AND ENGINEERING TEACHER) TROPONIN T 0.75(AA) <=0.03 ng/mL INTERFACE SYSTEM Comment:Persistent abnormal result TROPONIN T INTERP See Below INTERFACE SYSTEM Comment:Elevated Troponin-T, Consistent with Myocardial Injury 10/13/2007 12:4 0 PM TECHNOLOGY AND ENGINEERING TEACHER Helena Maddox MD CHEMISTRY ORDERABLES Edited Performing Organization Address [place]/[facility] de Phone Number INTERFACE SYSTEM Refer to clinic/hospital department * (ABNORMAL) CBC WITH DIFFERENTIAL (10/13/2007 11:00 AM TECHNOLOGY AND ENGINEERING TEACHER) NEUTROPHILS 64 45 - 70 % INTERFAC E SYSTEM LYMPHOCYTES 27 16 - 45 % INTERFAC E SYSTEM MONOCYTES 8 3 - 13 % INTERFACE SYSTEM EOSINOPHILS 2 0 - 7 % INTERFAC E SYSTEM BASOPHILS 0 0 - 2 % INTERFACE SYSTEM NEUTROPHIL ABSOLUTE 7.01(H) 1.90 - 7.00 K/uL INTERFACE SYSTEM LYMPHOCYTE ABSOLUTE 2.93 0.70 - 4.50 K/uL INTERFACE SYSTEM MONOCYTE ABSOLUTE 0.84 0.10 - 1.30 K/uL INTERFACE SYSTEM EOSINOPHIL ABSOLUTE 0.17 0.00 - 0.70 K/uL INTERFACE SYSTEM BASOPHILS ABSOLUTE 0.02 0.00 - 0.20 K/uL INTERFACE SYSTEM 10/13/2007 11:0 0 AM TECHNOLOGY AND ENGINEERING TEACHER [employer] HEMATOLOGY ORDERABLES Edited INTERFACE SYSTEM Refer to clinic/hospital department * (ABNORMAL) CBC WITH DIFFERENTIAL (10/13/2007 11:00 AM TECHNOLOGY AND ENGINEERING TEACHER) WBC 11.0(H) 4.0 - 9.8 K/uL INTERFACE SYSTEM RBC 4.53 4.50 - 5.40 M/uL INTERFACE SYSTEM HEMOGLOBIN 14.6 13.6 - 16.5 g/dL INTERFACE SYSTEM HEMATOCRIT 43.7 40.0 - 48.0 % INTERFACE SYSTEM MCV 96.5 82.0 - 99.0 fL INTERFACE SYSTEM MCH 32.2 27.2 - 32.6 pg INTERFACE SYSTEM MCHC 33.4 31.5 - 35.5 % INTERFACE SYSTEM RDW 13.2 11.5 - 14.5 % INTERFACE SYSTEM RDW-STDEV 46.2 37.1 - 48.7 fL INTERFACE SYSTEM PLATELETS 273 140 - 350 K/uL INTERFACE SYSTEM MPV 10.5 9.3 - 12.4 fL INTERFACE SYSTEM 10/13/2007 11:0 0 AM TECHNOLOGY AND ENGINEERING TEACHER [employer] HEMATOLOGY ORDERABLES Edited Performing Organization Address [place]/[facility] de Phone Number INTERFACE SYSTEM Refer to clinic/hospital department * CBC WITH DIFFERENTIAL (10/13/2007 4:28 AM TECHNOLOGY AND ENGINEERING TEACHER) NEUTROPHILS 61 45 - 70 % INTERFAC E SYSTEM LYMPHOCYTES 27 16 - 45 % INTERFAC E SYSTEM MONOCYTES 10 3 - 13 % INTERFACE SYSTEM EOSINOPHILS 2 0 - 7 % INTERFAC E SYSTEM BASOPHILS 0 0 - 2 % INTERFACE SYSTEM NEUTROPHIL ABSOLUTE 6.08 1.90 - 7.00 K/uL INTERFACE SYSTEM LYMPHOCYTE ABSOLUTE 2.69 0.70 - 4.50 K/uL INTERFACE SYSTEM MONOCYTE ABSOLUTE 0.95 0.10 - 1.30 K/uL INTERFACE SYSTEM EOSINOPHIL ABSOLUTE 0.16 0.00 - 0.70 K/uL INTERFACE SYSTEM BASOPHILS ABSOLUTE 0.04 0.00 - 0.20 K/uL INTERFACE SYSTEM 10/13/2007 4:28 AM TECHNOLOGY AND ENGINEERING TEACHER us Claudia Silva MD HEMATOLOGY ORDERA BLES Edited Performing Organization Address [place]/[facility] Phone Number INTERFACE SYSTEM Refer to clinic/hospital department * (ABNORMAL) CBC WITH DIFFERENTIAL (10/13/2007 4:28 AM TECHNOLOGY AND ENGINEERING TEACHER) WBC 9.9(H) 4.0 - 9.8 K/uL INTERFACE SYSTEM RBC 4.47(L) 4.50 - 5.40 M/uL INTERFACE SYSTEM HEMOGLOBIN 14.3 13.6 - 16.5 g/dL INTERFACE SYSTEM HEMATOCRIT 43.1 40.0 - 48.0 % INTERFACE SYSTEM MCV 96.4 82.0 - 99.0 fL INTERFACE SYSTEM MCH 32.0 27.2 - 32.6 pg INTERFACE SYSTEM MCHC 33.2 31.5 - 35.5 % INTERFACE SYSTEM RDW 13.4 11.5 - 14.5 % INTERFACE SYSTEM RDW-STDEV 47.1 37.1 - 48.7 fL INTERFACE SYSTEM PLATELETS 270 140 - 350 K/uL INTERFACE SYSTEM MPV 10.7 9.3 - 12.4 fL INTERFACE SYSTEM 10/13/2007 4:28 AM TECHNOLOGY AND ENGINEERING TEACHER us Claudia Silva MD HEMATOLOGY ORDERA BLES Edited Performing Organization Address [facility] Phone Number INTERFACE SYSTEM Refer to clinic/hospital department * (ABNORMAL) CK TOTAL, RELATIVE INDEX (10/13/2007 4:28 AM TECHNOLOGY AND ENGINEERING TEACHER) CK 478(H) 10 - 170 U/L INTERFACE SYSTEM CARDIAC RELATIVE INDEX 10.7(H) <=4.0 INTERFACE SYSTEM 10/13/2007 4:28 AM TECHNOLOGY AND ENGINEERING TEACHER us Richard Craft MD CHEMISTRY ORDERABLES Edit ed Performing Organization Address [facility] Phone Number INTERFACE SYSTEM Refer to clinic/hospital department * (ABNORMAL) CKMB W/REFLEX CK (10/13/2007 4:28 AM TECHNOLOGY AND ENGINEERING TEACHER) CKMB 50.9(AA) <=6.7 ng/mL INTERFACE SYSTEM Comment:Persistent abnormal result CKMB INTERP See Below INTERFAC E SYSTEM Comment:Elevated CKMB,Consis tent with Myocardial Injury 10/13/2007 4:28 AM TECHNOLOGY AND ENGINEERING TEACHER us Richard Craft MD CHEMISTRY ORDERABLES Edit ed Performing Organization Address [facility] Phone Number INTERFACE SYSTEM Refer to clinic/hospital department * PROTIME-INR (10/13/2007 4:28 AM TECHNOLOGY AND ENGINEERING TEACHER) PROTIME 13.0 12.7 - 15.1 Seconds INTERFACE SYSTEM INR 1.0 0.9 - 1.1 INTERFACE SYSTEM Comment: INR Therapeutic Range: Adult: 2.0 - 3.0 for pulmonary embolism or prophylaxis against venous thrombosis or systemic embolization. 2.0 - 3.0 for patients with tissue heart valves. 2.5 - 3.5 for patients with mechanical heart valves or post IN. Pediatric ??(12 years and under): 1.5 - 3.0 Although the target range in children is not well established , INR values of 1.5 - 3.0 are recommended for most patients. Higher values have been used in children with prosthetic cardiac valves and hereditary clotting disorders. (<3 days) therapeutic ranges have not been established. 10/13/2007 4:28 AM TECHNOLOGY AND ENGINEERING TEACHER us Claudia Silva MD HEMATOLOGY ORDERA BLES Edited Performing Organization Address [facility] Phone Number INTERFACE SYSTEM Refer to clinic/hospital department * PHOSPHORUS (10/13/2007 4:28 AM TECHNOLOGY AND ENGINEERING TEACHER) PHOSPHORUS 4.3 2.5 - 4.5 mg/dL INTERFACE SYSTEM 10/13/2007 4:28 AM TECHNOLOGY AND ENGINEERING TEACHER us Claudia Silva MD CHEMISTRY ORDERAB LES Edited Performing Organization Address [facility] de Phone Number INTERFACE SYSTEM Refer to clinic/hospital department * MAGNESIUM LEVEL (10/13/2007 4:28 AM TECHNOLOGY AND ENGINEERING TEACHER) MAGNESIUM 2.4 1.5 - 2.5 mg/dL INTERFACE SYSTEM 10/13/2007 4:28 AM TECHNOLOGY AND ENGINEERING TEACHER Claudia Silva MD CHEMISTRY ORDERAB LES Edited Performing Organization Address City/[facility] Co de Phone Number INTERFACE SYSTEM Refer to clinic/hospital department * (ABNORMAL) LIPID PANEL (10/13/2007 4:28 AM TECHNOLOGY AND ENGINEERING TEACHER) CHOLESTEROL 217(H) 100 - 199 mg/dL INTERFACE SYSTEM TRIGLYCERIDE 203(H) 10 - 149 mg/dL INTERFACE SYSTEM HDL 33(L) 40 - 59 mg/dL INTERFACE SYSTEM CHOL/HDL RATIO 6.6(H) 2.0 - 5.0 INTER FACE SYSTEM LDL CALCULATED 143(H) <=99 mg/dL INTERFACE SYSTEM LIPID PANEL COMMENT See Below INTERFACE SYSTEM Comment: The adult ATP and pediatric NCEP classifications for lipids are available on the [facility] Intranet at: [email or web address] Select: Lab Policies and Procedures,Current Select: Lipid Panel Interpretation 10/13/2007 4:28 AM TECHNOLOGY AND ENGINEERING TEACHER us Claudia Silva MD CHEMISTRY ORDERAB LES Edited Performing Organization Address City/[facility] Co de Phone Number INTERFACE SYSTEM Refer to clinic/hospital department * BASIC METABOLIC PANEL (10/13/2007 4:28 AM TECHNOLOGY AND ENGINEERING TEACHER) GLUCOSE 98 65 - 99 mg/dL INTERFACE SYSTEM CREATININE 0.74 0.67 - 1.17 mg/dL INTERFACE SYSTEM CALCIUM 8.9 8.4 - 10.2 mg/dL INTERFACE SYSTEM BUN 12 6 - 20 mg/dL INTERFACE SYSTEM SODIUM 137 135 - 145 mmol/L INTERFACE SYSTEM POTASSIUM 4.0 3.5 - 4.9 mmol/L INTERFACE SYSTEM CHLORIDE 102 96 - 108 mmol/L INTERFACE SYSTEM CO2 30 22 - 30 mmol/L INTERFACE SYSTEM GFR, >60 >=60 mL/min/1.7 sq meter INTERFACE SYSTEM GFR >60 >=60 mL/min/1.7 sq meter INTERFACE SYSTEM Comment: Estimated GFR rate interpretative information for both Americans and non- Americans is available on the [facility] Intranet at: [email or web address] Select: Lab Policies and Procedures Select: Reference Ranges - GFR 10/13/2007 4:28 AM TECHNOLOGY AND ENGINEERING TEACHER Claudia Silva MD CHEMISTRY ORDERAB LES Edited Performing Organization Address [facility] de Phone Number INTERFACE SYSTEM Refer to clinic/hospital department * (ABNORMAL) TROPONIN (W/REFLEX CKMB/CK) (10/13/2007 4:28 AM TECHNOLOGY AND ENGINEERING TEACHER) Pathologist [facility] TROPONIN T 1.43(AA) <=0.03 ng/mL INTERFACE SYSTEM Comment:Persistent abnormal result TROPONIN T INTERP See Below INTERFACE SYSTEM Comment:Elevated Troponin-T, Consistent with Myocardial Injury 10/13/2007 4:28 AM TECHNOLOGY AND ENGINEERING TEACHER Richard Craft MD CHEMISTRY ORDERABLES Edit ed Performing Organization Address [facility] de Phone Number INTERFACE SYSTEM Refer to clinic/hospital department * CBC WITH DIFFERENTIAL (10/12/2007 2:10 PM TECHNOLOGY AND ENGINEERING TEACHER) NEUTROPHILS 56 45 - 70 % INTERFAC E SYSTEM LYMPHOCYTES 35 16 - 45 % INTERFAC E SYSTEM MONOCYTES 7 3 - 13 % INTERFACE SYSTEM EOSINOPHILS 2 0 - 7 % INTERFAC E SYSTEM BASOPHILS 1 0 - 2 % INTERFACE SYSTEM NEUTROPHIL ABSOLUTE 4.58 1.90 - 7.00 K/uL INTERFACE SYSTEM LYMPHOCYTE ABSOLUTE 2.91 0.70 - 4.50 K/uL INTERFACE SYSTEM MONOCYTE ABSOLUTE 0.57 0.10 - 1.30 K/uL INTERFACE SYSTEM EOSINOPHIL ABSOLUTE 0.13 0.00 - 0.70 K/uL INTERFACE SYSTEM BASOPHILS ABSOLUTE 0.04 0.00 - 0.20 K/uL INTERFACE SYSTEM 10/12/2007 2:10 PM TECHNOLOGY AND ENGINEERING TEACHER [employer] HEMATOLOGY ORDERABLES Edited Performing Organization Address [facility]/State/ZIP Co de Phone Number INTERFACE SYSTEM Refer to clinic/hospital department * (ABNORMAL) CBC WITH DIFFERENTIAL (10/12/2007 2:10 PM TECHNOLOGY AND ENGINEERING TEACHER) WBC 8.2 4.0 - 9.8 K/uL INTERFACE SYSTEM RBC 4.28(L) 4.50 - 5.40 M/uL INTERFACE SYSTEM HEMOGLOBIN 13.5(L) 13.6 - 16.5 g/dL INTERFACE SYSTEM HEMATOCRIT 41.3 40.0 - 48.0 % INTERFACE SYSTEM MCV 96.5 82.0 - 99.0 fL INTERFACE SYSTEM MCH 31.5 27.2 - 32.6 pg INTERFACE SYSTEM MCHC 32.7 31.5 - 35.5 % INTERFACE SYSTEM RDW 13.4 11.5 - 14.5 % INTERFACE SYSTEM RDW-STDEV 46.8 37.1 - 48.7 fL INTERFACE SYSTEM PLATELETS 282 140 - 350 K/uL INTERFACE SYSTEM MPV 10.6 9.3 - 12.4 fL INTERFACE SYSTEM 10/12/2007 2:10 PM TECHNOLOGY AND ENGINEERING TEACHER [employer] HEMATOLOGY ORDERABLES Edited INTERFACE SYSTEM Refer to clinic/hospital department * (ABNORMAL) PT AND APTT (10/12/2007 2:10 PM TECHNOLOGY AND ENGINEERING TEACHER) PROTIME 13.6 12.7 - 15.1 Seconds INTERFACE SYSTEM INR 1.0 0.9 - 1.1 INTERFACE SYSTEM Comment: INR Therapeutic Range: Adult: 2.0 - 3.0 for pulmonary embolism or prophylaxis against venous thrombosis or systemic embolization. 2.0 - 3.0 for patients with tissue heart valves. 2.5 - 3.5 for patients with mechanical heart valves or post IN. Pediatric ??(12 years and under): 1.5 - 3.0 Although the target range in children is not well established , INR values of 1.5 - 3.0 are recommended for most patients. Higher values have been used in children with prosthetic cardiac valves and hereditary clotting disorders. (<3 days) therapeutic ranges have not been established. PTT 42.9(H) 24.4 - 36.4 Seconds INTERFACE SYSTEM Comment: PTT Therapeutic Range: Heparin Level ? PTT (seconds) <0.10 units/mL ? <53 0.10 - 0.30 units/mL ? 53 - 67 0.30 - 0.70 units/mL* ?67 - 95* 0.70 - 1.00 units/mL ?95 - 116 *corresponds to therapeutic range for unfractionated heparin 10/12/2007 2:10 PM TECHNOLOGY AND ENGINEERING TEACHER [place] HEMATOLOGY ORDERABLES Edited Performing Organization Address [facility] Phone Number INTERFACE SYSTEM Refer to clinic/hospital department * PHOSPHORUS (10/12/2007 2:10 PM TECHNOLOGY AND ENGINEERING TEACHER) PHOSPHORUS 3.6 2.5 - 4.5 mg/dL INTERFACE SYSTEM 10/12/2007 2:10 PM TECHNOLOGY AND ENGINEERING TEACHER [employer] CHEMISTRY ORDERABLES Edited Performing Organization Address [facility] Phone Number INTERFACE SYSTEM Refer to clinic/hospital department * MAGNESIUM LEVEL (10/12/2007 2:10 PM TECHNOLOGY AND ENGINEERING TEACHER) MAGNESIUM 2.4 1.5 - 2.5 mg/dL INTERFACE SYSTEM 10/12/2007 2:10 PM TECHNOLOGY AND ENGINEERING TEACHER [place] CHEMISTRY ORDERABLES Edited Performing Organization Address [facility] Phone Number INTERFACE SYSTEM Refer to clinic/hospital department * (ABNORMAL) COMPREHENSIVE METABOLIC PANEL (10/12/2007 2:10 PM TECHNOLOGY AND ENGINEERING TEACHER) GLUCOSE 121(H) 65 - 99 mg/dL INTERFACE SYSTEM CREATININE 0.75 0.67 - 1.17 mg/dL INTERFACE SYSTEM CALCIUM 8.3(L) 8.4 - 10.2 mg/dL INTERFACE SYSTEM ALKALINE PHOSPHATASE 47 40 - 129 U/L INTERFACE SYSTEM AST 41(H) 12 - 38 U/L INTERFACE SYSTEM ALT 23 0 - 41 U/L INTERFACE SYSTEM TOTAL PROTEIN 6.6 6.3 - 8.6 g/dL INTERFACE SYSTEM ALBUMIN 3.9 3.4 - 4.8 g/dL INTERFACE SYSTEM BILIRUBIN TOTAL 0.3 0.2 - 1.0 mg/dL INTERFACE SYSTEM BUN 15 6 - 20 mg/dL INTERFACE SYSTEM SODIUM 136 135 - 145 mmol/L INTERFACE SYSTEM POTASSIUM 3.7 3.5 - 4.9 mmol/L INTERFACE SYSTEM CHLORIDE 100 96 - 108 mmol/L INTERFACE SYSTEM CO2 28 22 - 30 mmol/L INTERFACE SYSTEM GFR, >60 >=60 mL/min/1. 7 sq meter INTERFACE SYSTEM GFR >60 >=60 mL/min/1. 7 sq meter INTERFACE SYSTEM Comment: Estimated GFR rate interpretative information for both Americans and non- Americans is available on the [facility] Intranet at: [email or web address] Select: Lab Policies and Procedures Select: Reference Ranges - GFR 10/12/2007 2:10 PM TECHNOLOGY AND ENGINEERING TEACHER [place] CHEMISTRY ORDERABLES Edited INTERFACE SYSTEM Refer to clinic/hospital department * (ABNORMAL) CK TOTAL, RELATIVE INDEX (10/12/2007 1:00 PM TECHNOLOGY AND ENGINEERING TEACHER) CK 396(H) 10 - 170 U/L INTERFACE SYSTEM CARDIAC RELATIVE INDEX 11.0(H) <=4.0 INTERFACE SYSTEM 10/12/2007 1:00 PM TECHNOLOGY AND ENGINEERING TEACHER Richard Craft MD CHEMISTRY ORDERABLES Edit ed INTERFACE SYSTEM Refer to clinic/hospital department * (ABNORMAL) CKMB W/REFLEX CK (10/12/2007 1:00 PM TECHNOLOGY AND ENGINEERING TEACHER) CKMB 43.7(AA) <=6.7 ng/mL INTERFACE SYSTEM Comment:Results called to de nise at 10/12/07 2:19 PM and read back verified. CKMB INTERP See Below INTERFAC E SYSTEM Comment:Elevated CKMB,Consis tent with Myocardial Injury. 10/12/2007 1:00 PM TECHNOLOGY AND ENGINEERING TEACHER us Richard Craft MD CHEMISTRY ORDERABLES Edit ed Performing Organization Address [facility] de Phone Number INTERFACE SYSTEM Refer to clinic/hospital department * (ABNORMAL) TROPONIN (W/REFLEX CKMB/CK) (10/12/2007 1:00 PM TECHNOLOGY AND ENGINEERING TEACHER) TROPONIN T 0.42(AA) <=0.03 ng/mL INTERFACE SYSTEM Comment:Results called to de nise at 10/12/07 1:52 PM and read back verified. TROPONIN T INTERP See Below INTERFACE SYSTEM Comment:Elevated Troponin-T, Consistent with Myocardial Injury 10/12/2007 1:00 PM TECHNOLOGY AND ENGINEERING TEACHER us Richard Craft MD CHEMISTRY ORDERABLES Edit ed Performing Organization Address [facility] de Phone Number INTERFACE SYSTEM Refer to clinic/hospital department documented in this encounter Visit Diagnoses Diagnosis Acute, but ill-defined, cerebrovascular disease documented in this encounter
--- OUTSIDE RECORDS SUMMARY | 2024-10-22 13:26 | XMS_ITS | Encounter Summary ---
Author Organization [facility] Care Team Providers Care Real Estate Manager Name Role Phone Pepper Encarnacion MD Primary Care Provider + Pepper Encarnacion MD Primary Care Provider + Amanda Patton RN Unavailable Unavailab Alejandro Fry MD Primary Care Provider [phone] Richard Craft MD Unavailable [phone] Jacob Aragon MD Unavailable [phone] Addison Winchester NP Unavailable [phone] Encounter Details Date Type Department Care Team (Latest Contact Info) Description 08/17/2016 Orders Only [facility] CLINCONV ProviderRadames MD [address] [place] [id number] Social History Tobacco Use Types Packs/Day Years Used Date Smoking Tobacco: Never Assessed Comments:Smoking History Pac ks/day: 0 Packs Alcohol Use Standard Drinks/Week Comments Yes 0 (1 standard drink = 0.6 oz pur e alcohol) Sex and Gender Information Value Date Recorded Sex Assigned at Not on file 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 us Historical Provider [facility] [place] [place] Final Result documented in this encounter Visit Diagnoses Not on filedocumented in this encounter Care Teams Real Estate Manager Relationship Specialty Start Date End Date Pepper Encarnacion MD PCP - General 11/04/16 07/08/22 Pepper Encarnacion MD PCP - General 06/16/16 11/03/16 Alejandro Flynn MD [address] [place] [address] PCP - General Internal Medicine 07/09/22 Amanda Patton, LENORA Registered Nurse 06/01/19 2 Richard Craft MD [address] [place] [address] Consulting Physician Cardiology 09/07/22 Jacob Aragon MD [address] [facility] [address] [place] [address] Consulting Physician Vascular Surgery 09/12/22 [place] [address] [facility] [address] [place] [address] Nurse Practitioner Pain Management 09/06/24 documented as of this encounter
--- OUTSIDE RECORDS SUMMARY | 2024-10-22 13:26 | XMS_ITS | Clinical Summary ---
Author Organization [facility] Address [address] [place] [address]. [place] [address] [place] [address] Care Team Providers Care Meat Grading Machine Operator Name Role Phone Unavailable Primary Care Provider Unavailabl e Social History Tobacco Use Types Packs/Day Years Used Date Smoking Tobacco: Never Assessed Sex and Gender Information Value Date Recorded Sex Assigned at Not on file Legal Sex Male 8:32 PM CDT Gender Identity Not on file Sexual Orientation Not on file Plan of Treatment Health Maintenance Due Date Last Done Comments Hepatitis C 1963 DTaP, Tdap and Td Vaccines ( 1 - Tdap) 1965 Zoster Vaccines (1 of 2) 1996 Pneumococcal Vaccine: 65+ Ye ars (1 of 1 - PCV) 2011 RSV Immunization or 60+ Years (1 - 1-dose 75+ series) 2021 COVID-19 Vaccine ( - 2023-2 5 season) 2024 Influenza Adult (#1) 2024 Meningococcal B Vaccine Aged Out No l onger eligible based on patient's age to complete this topic Meningococcal Vaccine Aged Out No chelle parvez eligible based on patient's age to complete this topic RSV Immunizations Under 20 Months Aged Out No longer eligible based on patient's age to complete this topic
--- OUTSIDE RECORDS SUMMARY | 2024-10-22 13:26 | XMS_ITS | Encounter Summary ---
Author Organization [facility] Address [address] [facility] [place] [address] Care Team Providers Care Health Technical Writer Name Role Phone Pepper Encarnacion MD Primary Care Provider [phone] Alejandro Flynn MD Primary Care Provider [phone] Spencer Hoyos Unavailable Unavailable Encounter Details Date Type Department Care Team (Late st Contact Info) Description 10/09/[address] [facility] - Pathology Lab [address] [place] [address] Joseph Lee MD [address] [address] Illness, unspecified Social History Tobacco Use Types Packs/Day Years Used Date Smoking Tobacco: Never Assessed Sex and Gender Information Value Date Recorded Sex Assigned at Not on file Gender Identity Not on file Sexual Orientation Not on file documented as of this encounter Plan of Treatment Pending Results Name Type Priority Associated Diagnoses Date /Time SLIDE PREP HISTOLOGY Pathology Cytology Routine Illness, unspecified 10/09/2024 2:08 PM EDUCATIONAL ASSISTANT TEACHER documented as of this encounter Visit Diagnoses Diagnosis Illness, unspecified documented in this encounter Care Teams Health Technical Writer Relationship Specialty Start Date End Date Pepper Encarnacion MD [address] [place] [address] PCP - General 05/30/18 10/15/24 Alejandro Flynn MD [address] [place] [id number] PCP - General Internal Medicine 10/16/24 Spencer Hoyos [address] [address] Referring Physician 10/16/24 documented as of this encounter
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
--- OUTSIDE RECORDS SUMMARY | 2024-10-22 13:27 | XMS_ITS | Clinical Summary ---
Author Organization [facility] Tip or Skip Address [address] [place] [address] Care Team Providers Care Strap Maker Name Role Phone Alejandro Flynn MD Primary Care Provider [phone] Spencer Hoyos Unavailable Unavailable Source Comments [facility],non-owned Affiliates and Associated Physician Practices is amultiple site organization consisting of ambulatory clinics and hospital sitesin [place], [place] and [place]. This disclosure is being madepursuant to the Care Everywhere program and may not contain all information available regarding this patient. Last updated 18.[facility] Tip or Skip Allergies No known active allergies Medications * Be aware that medications may not be up to date on this document. Alwaysverify current medications with the patient. Medication Sig Dispensed Refills Start Date End Date Status atorvastatin (Lipitor) 20 MG tablet Take 1 (one) tablet by mouth once daily Active B Complex Vitamins (Vitamin B-Complex) TABS Take 1 tablet by mouth every morning Active cephalexin (Keflex) 500 MG tablet Take 1 (one) tablet by mouth every 12 hours FOR 10 DAYS 4 Active Cholecalciferol (Vitamin D3) 25 MCG (1000 UT) Take 2 (two) capsules by mouth every morning 3 10/31/19 25 Active trimethoprim (Trimpex) 100 MG tablet Take 1 (one) tablet by mouth at bedtime Active Gemtesa 75 MG tablet Take 1 (one) tablet by mouth at bedtime Active naproxen (Naprosyn) 375 MG tablet TAKE 1 TABLET(375 MG) BY MOUTH TWICE DAILY NEEDED FOR PAIN 4 Active Morphine Sulf Microinfusion PF (Mitigo) injection 4 Active mirtazapine (Remeron) 30 MG tablet Take 1 (one) tablet by mouth at bedtime Active oxyCODONE, immediate release, (Roxicodone) 5 MG tabletIndications: Acute Pain Take 1 (one) tablet by mouth every 8 hours as needed for Pain Reasons: Acute Pain 8 tablet 5 Active pantoprazole EC (Protonix) 40 MG tabletIndications: Gastroesophageal Reflux Disease,Malignant Neoplasm of Esophagus Take 1 (one) tablet by mouth 2 times daily Reasons: Cancer of the Esophagus, Gastroesophageal Reflux Disease 60 tablet 3 5 Active sucralfate (Carafate) 1 GM/10ML suspensionIndicati ons:Esophagitis Take 10 mL by mouth 4 times daily for 5 days Reasons: Esophagus Inflammation 200 mL 5 10/24/19 25 Active pantoprazole EC (Protonix) 40 MG tablet Take 1 (one) tablet by mouth 2 times daily 10/18/19 25 Discontinu ed(Reorder ) Encounters Date Type Department Care Team Description 10/19/2024 Orders Only [facility] - [facility] [address] [place] [phone] Vitaly Goodson MD Malignant neoplasm of lower third of esophagus (HCC) ; Esophagitis 10/19/2024 Telephone [facility] - [facility] [address] [place] [phone] Rubi Medellin RN General 10/18/2024 11:01 AM PROCEDURE TECH Anesthesia Event [facility] [address] [place] [phone] Sujata Benson MD 10/18/2024 11:00 AM PROCEDURE TECH - 10/18/2024 12:00 PM PROCEDURE TECH Surgery [facility] [address] [place] [phone] Vitaly Goodson MD EUS + Stent 10/18/2024 9:54 AM PROCEDURE TECH - 10/18/2024 2:17 PM PROCEDURE TECH Hospital Encounter [facility] OP [address] [place] [address] Vitaly Goodson MD Surgery General Discharge Disposition: Home or Self Care 10/18/2024 Orders Only [facility] - GI [address] [facility], [place] [phone] Vitaly Goodson MD Other chest pain 10/18/2024 Travel 10/16/2024 Telephone [facility] - GI [address] [facility], [place] [phone] Moo Willett RN Procedure (external referral: EGD + Stent for dysphagia with Dr. Sellers from Dr. Spencer Hoyos f: [phone]) 10/09/2024 Lab Requisition [facility] - Pathology Lab [address] [place] [phone] Joseph Lee MD Illness, unspecified from Last 3 Months Social History Tobacco Use Types Packs/Day Years Used Date Smoking Tobacco: Former Cigarettes Smokeless Tobacco: Never Tobacco Cessation:Counseling Given: Not Answered Alcohol Use Standard Drinks/Week Comments Not Currently 0 (1 standard drink = 0.6 oz pur e alcohol) socially Sex and Gender Information Value Date Recorded Sex Assigned at Not on file Gender Identity Not on file Sexual Orientation Not on file Last Filed Vital Signs Vital Sign Reading Time Taken Comments Blood Pressure 148/69 10/18/2024 1:30 PM PROCEDURE TECH Pulse 65 10/18/2024 1:30 PM PROCEDURE TECH Temperature 36 ??C (96.8 ??F) 10/18/2024 12:50 PM PROCEDURE TECH Respiratory Rate 10 10/18/2024 1:30 PM PROCEDURE TECH Oxygen Saturation 99% 10/18/2024 1:30 PM PROCEDURE TECH Inhaled Oxygen Concentration - - Weight 63 kg (139 lb) 10/18/2024 10:31 AM PROCEDURE TECH Height 182.9 cm (6') 10/18/2024 10:31 AM PROCEDURE TECH Body Mass Index 18.85 10/18/2024 10:31 AM PROCEDURE TECH Plan of Treatment Health Maintenance Due Date Last Done Comments Opioid Medication Agreement - Annual 1945 Opioid Medication Urine Drug Screening 1945 HEPATITIS C SCREENING 07/12/1964 DTAP/TDAP/TD VACCINES (1 - Tdap) 1965 PNEUMOCOCCAL VACCINE 50+ (1 of 1 - PCV) 1996 ZOSTER VACCINE (1 of 2) 1996 Respiratory Syncytial Virus (RSV) Vaccine Pt: or over 60 yrs (1 - 1-dose 75+ series) 2021 COVID-19 VACCINE (1 - 2023-2 5 season) 2024 INFLUENZA VACCINE (#1) 2024 , 08/23/2019, 06/30/2018 DEPRESSION SCREENING 09/20/2024 MEDICARE AWV ? CALENDAR YEAR 2024 HEPATITIS B VACCINE Aged Out No longe r eligible based on patient's age to complete this topic HIB VACCINE Aged Out No longer eligi ble based on patient's age to complete this topic HPV VACCINE Aged Out No longer eligi ble based on patient's age to complete this topic MENINGOCOCCAL (Group B) VACCINE Aged Out No longer eligible b ased on patient's age to complete this topic MENINGOCOCCAL VACCINE Aged Out No chelle parvez eligible based on patient's age to complete this topic Medical Devices Implanted Type Area Knit Goods Mender Device Identifier Shelf Expiration Date Model / Serial / Lot Esophageal Tts Stent 22mm X 150mm Implanted:Qty: 1 on 10/18/2024 by Vitaly Goodson MD at [facility] N/A: Esophagus 03/28/2026 [id number] / [id number] / [id number] Description:[employer] Esophageal Stent 22mm x 150mm Procedures Procedure Name Priority Date/Time Associated Diagnosis Comments ENDOTRACHEAL TUBE NOTE Routine 10/18/2024 11:14 AM PROCEDURE TECH VT ENDOSCOPIC ULTRASOUND EXAM 10/18/2024 10:56 AM PROCEDURE TECH Dysphagia, unspecified type CBC W/O DIFFERENTIAL Routine 10/18/2024 10:41 AM PROCEDURE TECH Pre-op exam BASIC METABOLIC PANEL (CALCIUM TOTAL) Routine 10/18/2024 10:41 AM PROCEDURE TECH Pre-op evaluation ENDOSCOPIC ULTRASONOGRAPHY, GI Routine 10/18/2024 10:31 AM PROCEDURE TECH EKG 12-LEAD Routine 10/18/2024 10:19 AM PROCEDURE TECH Pre-op evaluation from Last 3 Months Results * ETT LINE PERFORMABLE (10/18/2024 11:14 AM PROCEDURE TECH) Narrative Sapna Ojeda APRN-CRNA - 10/18/2024 11:14 AM PROCEDURE TECH Sapna Ojeda APRN-CRNA ? 10/18/2024 11:16 AM Endotracheal Tube Placement: ? Intubation Event Date/Time: ??10/18/2024 11:08 AM Procedure: intubation (34957) Procedure Section: ?? Sedation: under general anesthesia. Indications for Airway Management: ??anesthesia Procedure pretreatments used? ??No Induction: standard IV Patient Position: ??sniffing and supine Mask Ventilation: easy with oral airway. Blade Type: [place] Blade Size: 2 Laryngoscopy View: grade 1 (full cords) Intubation Adjuncts: stylet Nasal Airway Size: 7 Tube: endotracheal tube Placement: oral Tube type: cuff - inflated Depth of Insertion (CM): 23 Measured From: gums Cuff Inflated With: air Number of Attempts: 1. Placement Verified By: direct visualization, CO2 monitor, bilateral breath sounds and chest auscultation CXR Findings: ETT in proper place. Tube secured with: ??adhesive tape. Dentition unchanged? ??Yes Difficult Airway? ??No. Procedure Start Time: 10/18/2024 11:08 AM. Staff Section ? Anesthesia Provider: Sapna Ojdea APRN-CRNA, Performed the procedure Sujata Benson MD GENERAL ANESTHESIA O RDERABLES * (ABNORMAL) CBC W/O DIFFERENTIAL (10/18/2024 10:41 AM [facility] WBC 7.4 4.0 - 10.7 x10E9/L 10/18/2024 10:57 AM [facility] RBC Count 3.86(L) 4.30 - 5.80 x10E12/L 10/18/2024 10:57 AM [facility] Hemoglobin 12.0(L) 13.3 - 17.5 g/dL 10/18/2024 10:57 AM [facility] Hematocrit 36.0(L) 38.7 - 51.1 % 10/18/2024 10:57 AM [facility] MCV 93.3 80.0 - 98.0 fL 10/18/2024 10:57 AM [facility] MCH 31.1 26.7 - 33.6 pg 10/18/2024 10:57 AM [facility] MCHC 33.3 31.7 - 36.3 g/dL 10/18/2024 10:57 AM [facility] RDW-CV 12.2 11.3 - 14.8 % 10/18/2024 10:57 AM [facility] Platelet Count 290 150 - 420 x10E9/L 10/18/2024 10:57 AM [facility] MPV 9.7 7.8 - 11.4 fL 10/18/2024 10:57 AM [facility] Blood BLOOD SPECIMEN / Unknown Venipuncture / Unknown 10/18/2024 10:41 AM [facility] 10/18/2024 10:48 AM [facility] Sujata Benson MD LAB - HEMATOLOGY ORD ERABLES [facility] [address] [place] [address] [phone] * (ABNORMAL) BASIC METABOLIC PANEL (CALCIUM TOTAL) (10/18/2024 10:41 AM [facility]) BUN 23 7 - 26 mg/dL 10/18/2024 11:20 AM [facility] Creatinine 0.81 0.71 - 1.16 mg/dL 10/18/2024 11:20 AM [facility] Sodium 138 136 - 145 mmol/L 10/18/2024 11:20 AM [facility] Potassium 3.7 3.5 - 4.5 mmol/L 10/18/2024 11:20 AM [facility] Chloride 102 98 - 107 mmol/L 10/18/2024 11:20 AM [facility] CO2 26 22 - 29 mmol/L 10/18/2024 11:20 AM [facility] Glucose 93 70 - 99 mg/dL 10/18/2024 11:20 AM [facility] Calcium 9.6 8.4 - 10.2 mg/dL 10/18/2024 11:20 AM [facility] Anion Gap 10 6 - 16 10/18/2024 11:20 AM [facility] BUN/Creatinine Ratio 28(H) 7 - 23 10/18/2024 11:20 AM [facility] Osmolality Calculated 289 275 - 295 mOsm/kg 10/18/2024 11:20 AM [facility] eGFR by CKD-EPI 90 >=90 mL/min/1.7 3 m2 10/18/2024 11:20 AM [facility] Blood BLOOD SPECIMEN / Unknown Venipuncture / Unknown 10/18/2024 10:41 AM PROCEDURE TECH 10/18/2024 10:48 AM PROCEDURE TECH Sujata Benson MD LAB - CHEMISTRY [facility] Organization Address City/State/ZIP Co de Phone Number [facility] [address] [place] [phone], [facility] [phone] * Endoscopic Ultrasonography, GI (10/18/2024 10:31 AM PROCEDURE TECH) Report Endoscopy POC Endoscopy Department Report _ Patient Name: Gregory Scherer ? Procedure Date: 10/18/2024 10:31 AM ?Date of : 1945 Classification: Outpatient ?Gender: Male Ethnicity: Not or ? Race: White _ Providers: ?Vitaly Guillory MD Referring : ? Spencer Hoyos MD; Jud Rutherford APRN; ?Alejandro Flynn MD Procedure: ?Upper EUS Indications: ?Staging of esophageal adenocarcinoma, Dysphagia Medications: ?Monitored Anesthesia Care. See the Anesthesia note ?for documentation of the administered medications. Patient Profile: ?79M presents as direct access referral for EGD/EUS ?and possible esophageal stent placement. 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 09/2024 CT C/A/P ?w/c: Distal esophageal wall thickening, suspected ?hepatic metastases. Description of Procedure: After obtaining informed consent, the endoscope was ?passed under direct vision. Throughout the ?procedure, the patient's blood pressure, pulse, and ?oxygen saturations were monitored continuously. A ?therapeutic gastroscope was introduced through the ?mouth, and advanced to the lower third of ?esophagus. An ultraslim scope was introduced ?through the mouth, and advanced to the second ?portion of the duodenum. A radial array ?echoendoscope was introduced through the mouth, and ?advanced to the lower third of esophagus. The upper ?EUS was accomplished without difficulty. The ?patient tolerated the procedure well. ? Findings: ? ENDOSCOPIC FINDING: : ? The esophagus, esophagogastric junction and gastric cardia were ? carefully examined. 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 A large ? circumferential nearly completely obstructing mass was seen arising ? within the suspected Martin's segment, consistent with known ? adenocarcinoma, extending from 37 to 45 cm from the incisors (EG ? junction at 42 cm) with extensive involvement of the gastric cardia on ? retroflexed examination. The mass could only be traversed with an ? ultraslim endoscope. Findings not amenable to endoscopic gastrostomy ? tube placement due to the degree of luminal narrowing. After ? endosonographic examination as noted below, the decision was made to ? proceed with enteral stent placement. A long 0.035 inch Jagwire was ? advanced through the ultraslim endoscope and coiled in the stomach under ? direct endoscopic visualization. The scope was withdrawn over the ? guidewire. A therapeutic endoscope was advanced over the guidewire. A 22 ? mm x 150 mm esophageal fully covered metal stent (Taewoon) was placed ? across the area of narrowing under endoscopic and fluoroscopic guidance. ? The stent appeared in adequate position, extending from the mid ? esophagus to the proximal gastric body. The decision was made to anchor ? the proximal stent phlange in place via the use of an [id number] ? clip (StentFix, OVESCO) to reduce the risk of migration. Good clip ? placement was noted. There was no evidence of bleeding or perforation at ? the end of the procedure. ? The remainder of the stomach was normal appearing. ? The examined duodenum was normal appearing. ? ENDOSONOGRAPHIC FINDING: : ? The esophagus and adjacent structures were examined endosonographicall y. ? A large hypoechoic obstructing mass was found in the lower third of the ? esophagus. The exam was limited by inability to advance the ? echoendoscope through the area or narrowing. The endosonographic borders ? were poorly-defined. There was sonographic evidence suggesting invasion ? through the muscularis propria. At least two malignant appearing lymph ? nodes measuring up to 12 mm, were visualized in the immediate ? para-esophageal mediastinum. The nodes were round, hypoechoic and had ? well-defined margins. ? Estimated Blood Loss: ? Estimated blood loss was minimal. Complications: ?No immediate complications. Impression: ? 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 Endosonographic staging consistent with at ?least T3N1Mx disease (exam limited by inability to ?pass the echoendoscope through the area of ?narrowing). ?- One 22 mm x 150 mm esophageal fully covered metal ?stent (Taewoon) placed across the area of ?narrowing, and proximally anchored via use of an ?yvan-nab-ddxli clip (StentFix, OVESCO MR ?conditional). Moderate Sedation: ? GA. Recommendation: ? - Monitor for fevers, pain, signs of bleeding, or ?recurrent difficulty swallowing. ?- Start clear liquid diet this evening, then ?advanced to soft diet as tolerated tomorrow. ?- Have small meals, can increase frequency if ?needed to maintain caloric intake. ?- Chew all food thoroughly. Consumed food should be ?soft, moist and easily swallowed. Eat slowly and ?take small bites. ?- Remain in an upright position at least 60 minutes ?after meals. ?- Maintain the head of bed elevated at all times ?given risk of aspiration. ?- Take proton pump inhibitor antacid therapy with ?Pantoprazole (Protonix) 40 mg orally twice daily. ?- Take Tramadol as needed for pain for 5 days. ?- Follow-up with Oncology regarding management of ?known cancer. ?- If recurrent persistent difficulty swallowing, ?present to ER. Note findings not amenable to ?endoscopic gastrostomy tube placement. ?- The potential complications and concerning ?symptoms/finding s, including but not limited to ?early or delayed fevers, infection, pain, ?aspiration, bleeding, perforation, stent ?obstruction and migration, were discussed with the ?patient/caregive r. Emergency contact information ?was provided. ? Attending Participation: ??I personally performed the entire procedure. ? Procedure Code(s): ? --- Professional --- ? 88618, Esophagoscopy, flexible, transoral; with placement of endoscopic ? stent (includes pre- and post-dilation and guide wire passage, when ? performed) ? 89125, Esophagoscopy, flexible, transoral; with endoscopic ultrasound ? examination ? 02144, 59, Fluoroscopy (separate procedure), up to 1 hour physician or ? other qualified health laboratory animal care veterinarian time Diagnosis Code(s): ?--- Professional --- ?K22.89, Other specified disease of esophagus ?C15.9, Malignant neoplasm of esophagus, unspecified ?R13.10, Dysphagia, unspecified CPT copyright 2021 [employer]. All rights reserved. The codes documented in this report are preliminary and upon certified medical coder review may be revised to meet current compliance requirements. Vitaly Guillory MD 10/18/2024 12:24:47 PM Note Initiated On: 10/18/2024 10:31 AM Number of Addenda: 0 ? [facility] ? [address] [place] [address] [facility] 10/18/2024 10:3 1 AM PROCEDURE TECH Vitaly Guillory MD GI PROCEDURE ORDERABLES Performing Organization Address City/State/[facility] Co de Phone Number [facility] from Last 3 Months Care Teams Strap Maker Relationship Specialty Start Date End Date Alejandro Flynn MD [address] [place] [phone] PCP - General Internal Medicine 10/16/24 Spencer Hoyos [address] [address] Referring Physician 10/16/24
--- OUTSIDE RECORDS SUMMARY | 2024-10-22 13:27 | XMS_ITS | Continuity of Care Document ---
Author Organization [facility] Address [address] [place] [address] Phone Care Team Providers Care Account Support Manager Name Role Phone Ana Carlson PTA Unavailable Unavail able Procedures Procedure Date Aquatic Therapy Aquatic Therapy PT Evaluation High Complexity 9 Therapeutic Exercise Neuromuscular Re-Ed Advance Directives Directive Yes / No Effective Date File Name No Information Encounters Encounter Description Practice Location Reason(s) For Visit Diagnoses Date Provider Providers Copied on Encounter [facility], [address] [address], [place], [place], [id number], tel:[phone] [place] No Information [address] [address] [facility], [address], [facility], [place]. tel: [phone] [address], [id number], tel:[phone] [place] Radiculopathy, lumbar regionUnspecifie d abnormalities of gait and mobilityOth symptoms and signs involving the musculoskeletal systemMuscle weakness (generalized) b [address] [address] [facility], [address], [place], [facility], [place]. tel:[phone] Referring Provider: Inderjit De La Rosa, [address], [place], [address]. tel:[phone] [facility] [facility] [address], [place], [place], [id number], tel:[phone] [place] Radiculopathy, lumbar regionUnspecifie d abnormalities of gait and mobilityOth symptoms and signs involving the musculoskeletal systemMuscle weakness (generalized) [address] [facility], [address], [place], [facility], . tel: [phone] Referring Provider: Inderjit De La Rosa, [address] [place] [address] [address], [place], [address]. tel:[phone] [facility] [facility], [place], [place], [id number], tel:[phone] [place] Radiculopathy, lumbar regionUnspecifie d abnormalities of gait and mobilityOth symptoms and signs involving the musculoskeletal systemMuscle weakness (generalized) 9 Frnaco Borjas . Referring Provider: Inderjit De La Rosa, [address] [place] [address] [address], [place], [address]. tel:[phone] Family History Family Member Type Diagnosis Age At Onset No Information Payers Payer name Insurance type Covered libertarian ID Authornedraa tirashaad(s) Medicare [place] MB [id number] [facility] [id number] Social History Type Description Quantity Date Captured [...]
--- OUTSIDE RECORDS SUMMARY | 2024-10-22 13:27 | XMS_ITS | Referral Summary ---
Author Organization [facility] Address [address] [place] [address] Care Team Providers Care Ferry Boat Captain Name Role Phone Alejandro Flynn MD Primary Care Provider [phone] Spencer Hoyos Unavailable Unavailable Source Comments [facility],non-owned Affiliates and Associated Physician Practices is amultiple site organization consisting of ambulatory clinics and hospital sitesin [place], [place], [place] and [place]. This disclosure is being madepursuant to the Care Everywhere program and may not contain all information available regarding this patient. Last updated 18.[facility] Encounters Date Type Department Care Team Description 10/19/2024 Orders Only [facility] - GI [address] [place] [phone] Vitaly Goodson MD Malignant neoplasm of lower third of esophagus (HCC) ; Esophagitis 10/19/2024 Telephone [facility] - GI [address] [place] [phone] Rubi Medellin RN General 10/18/2024 Orders Only [facility] - GI [address] [place] [phone] Vitaly Goodson MD Other chest pain 10/18/2024 Travel 10/18/2024 11:01 AM SHELL GRADER Anesthesia Event [facility] ENDOSCOPY [address] [place] [phone] Sujata Benson MD 10/18/2024 11:00 AM SHELL GRADER - 10/18/2024 12:00 PM [facility] Surgery [facility] ENDOSCOPY [address] [place] [address] Vitaly Goodson MD EUS + Stent 10/18/2024 9:54 AM SHELL GRADER - 10/18/2024 2:17 PM [facility] Hospital Encounter [facility] NANDO OP [address] [place] [address] Vitaly Goodson MD Surgery General Discharge Disposition: Home or Self Care 10/16/2024 Telephone [facility] - GI [address] [facility] [place] [address] Moo Willett RN Procedure (external referral: EGD + Stent for dysphagia with Dr. Sellers from Dr. Spencer Hoyos f: [phone]) 10/09/2024 Lab Requisition [facility] - Pathology Lab [address] [place] [address] Joseph Lee MD Illness, unspecified from Last 3 Months Allergies No known active allergies Medications * [...] times daily 10/18/19 25 Discontinu ed(Reorder ) Social History Tobacco Use Types Packs/Day Years [...] Comments Blood Pressure 148/69 10/18/2024 1:30 PM SHELL GRADER Pulse 65 10/18/2024 1:30 PM SHELL GRADER Temperature 36 ??C (96.8 ??F) 10/18/2024 12:50 PM SHELL GRADER Respiratory Rate 10 10/18/2024 1:30 PM SHELL GRADER Oxygen Saturation 99% 10/18/2024 1:30 PM SHELL GRADER Inhaled Oxygen Concentration - - Weight 63 kg (139 lb) 10/18/2024 10:31 AM SHELL GRADER Height 182.9 cm (6') 10/18/2024 10:31 AM SHELL GRADER Body Mass Index 18.85 10/18/2024 10:31 AM SHELL GRADER Functional Status Functional Status Response Date of Assess ment Is person deaf or have serious hearing difficult y? No 10/18/2024 Is person blind or have serious difficulty seein g? No 10/18/2024 Does person have serious dif ficulty walking/climbing stairs? Yes 10/18/2024 Does person have difficulty dressing/bathing? Ye s 10/18/2024 Does person have difficulty doing errands alone? Yes 10/18/2024 Cognitive Status Response Date of Assessm ent Does person have difficulty concentrating/remembering/making decisions? No 10/18/2024 Plan of Treatment Not on file Medical Devices Implanted Type Area Solderer Assembly Repair Device Identifier Shelf Expiration Date Model / Serial / Lot Esophageal Tts Stent 22mm X 150mm Implanted:Qty: 1 on 10/18/2024 by Vitaly Goodson MD at [facility] N/A: Esophagus 03/28/2026 [id number] / [id number] / [id number] Description:[employer] Esophageal Stent 22mm x 150mm Procedures Procedure Name Priority Date/Time Associated Diagnosis Comments ENDOTRACHEAL TUBE NOTE Routine 10/18/2024 11:14 AM SHELL GRADER [place] ENDOSCOPIC ULTRASOUND EXAM 10/18/2024 10:56 AM SHELL GRADER Dysphagia, unspecified type CBC W/O DIFFERENTIAL Routine 10/18/2024 10:41 AM SHELL GRADER Pre-op exam BASIC METABOLIC PANEL (CALCIUM TOTAL) Routine 10/18/2024 10:41 AM SHELL GRADER Pre-op evaluation ENDOSCOPIC ULTRASONOGRAPHY, GI Routine 10/18/2024 10:31 AM SHELL GRADER EKG 12-LEAD Routine 10/18/2024 10:19 AM SHELL GRADER Pre-op evaluation from Last 3 Months Results * ETT LINE PERFORMABLE (10/18/2024 11:14 AM SHELL GRADER) Narrative Sapna Ojeda APRN-CRNA - 10/18/2024 11:14 AM SHELL GRADER Sapna Ojeda APRN-CRNA ? 10/18/2024 11:16 AM Endotracheal Tube Placement: ? Intubation Event Date/Time: ??10/18/2024 11:08 AM Procedure: intubation (91516) Procedure Section: ?? Sedation: under general anesthesia. [...] AM. Staff Section ? Anesthesia Provider: Sapna Ojeda APRN-LYE PEEL OPERATOR, Performed the procedure Sujata Benson MD GENERAL ANESTHESIA O RDERABLES * (ABNORMAL) CBC W/O DIFFERENTIAL (10/18/2024 10:41 AM [facility]) WBC 7.4 4.0 - 10.7 x10E9/L 10/18/2024 10:57 AM [facility] RBC Count 3.86(L) 4.30 - 5.80 x10E12/L 10/18/2024 10:57 AM [facility] Hemoglobin 12.0(L) 13.3 - 17.5 g/dL 10/18/2024 10:57 AM [facility] Hematocrit 36.0(L) 38.7 - 51.1 % 10/18/2024 10:57 AM [facility] MCV 93.3 80.0 - 98.0 fL 10/18/2024 10:57 AM [facility] MCH 31.1 26.7 - 33.6 pg 10/18/2024 10:57 AM [facility] MCHC 33.3 31.7 - 36.3 g/dL 10/18/2024 10:57 AM [facility] RDW-CV 12.2 11.3 - 14.8 % 10/18/2024 10:57 AM [facility] Platelet Count 290 150 - 420 x10E9/L 10/18/2024 10:57 AM [facility] MPV 9.7 7.8 - 11.4 fL 10/18/2024 10:57 AM [facility] Blood BLOOD SPECIMEN / Unknown Venipuncture / Unknown 10/18/2024 10:41 AM SHELL GRADER 10/18/2024 10:48 AM [facility] Sujata Benson MD LAB - HEMATOLOGY ORD ERABLES Performing Organization Address City/[facility]/ZIP Co de Phone Number [facility] [address] [place] [address] [phone] * (ABNORMAL) BASIC METABOLIC PANEL (CALCIUM TOTAL) (10/18/2024 10:41 AM SHELL GRADER) BUN 23 7 - 26 mg/dL 10/18/2024 11:20 AM [facility] Creatinine 0.81 0.71 - 1.16 mg/dL 10/18/2024 11:20 AM [facility] Sodium 138 136 - 145 mmol/L 10/18/2024 11:20 AM [facility] Potassium 3.7 3.5 - 4.5 mmol/L 10/18/2024 11:20 AM [facility] Chloride 102 98 - 107 mmol/L 10/18/2024 11:20 AM [facility] CO2 26 22 - 29 mmol/L 10/18/2024 11:20 AM [facility] Glucose 93 70 - 99 mg/dL 10/18/2024 11:20 AM [facility] Calcium 9.6 8.4 - 10.2 mg/dL 10/18/2024 11:20 AM [facility] Anion Gap 10 6 - 16 10/18/2024 11:20 AM [facility] BUN/Creatinine Ratio 28(H) 7 - 23 10/18/2024 11:20 AM [facility] Osmolality Calculated 289 275 - 295 mOsm/kg 10/18/2024 11:20 AM [facility] eGFR by CKD-EPI 90 >=90 mL/min/1.7 3 m2 10/18/2024 11:20 AM [facility] Blood BLOOD SPECIMEN / Unknown Venipuncture / Unknown 10/18/2024 10:41 AM SHELL GRADER 10/18/2024 10:48 AM SHELL GRADER Sujata Benson MD LAB - CHEMISTRY HARMAN WILLAMS Performing Organization Address City/State/ZIP [place] de Phone Number [address] [address], [facility] [phone] * Endoscopic Ultrasonography, GI (10/18/2024 10:31 AM SHELL GRADER) Report Endoscopy POC Endoscopy Department Report _ Patient Name: Gregory Scherer ? Procedure Date: 10/18/2024 10:31 AM ?Date of : 1945 Classification: Outpatient ?Gender: Male Ethnicity: Not or ? Race: White _ Providers: ?Vitaly Guillory MD Referring MD: ? 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 A large ? circumferential nearly [...] in place via the use of an gwtq-bll-zveng ? clip (StentFix, [employer]) to reduce the risk of migration. 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 Endosonographic staging consistent with at ?least T3N1Mx disease (exam limited by inability to ?pass the echoendoscope through the area of ?narrowing). ?- One 22 mm x 150 mm esophageal fully covered metal ?stent (Taewoon) placed across the area of ?narrowing, and proximally anchored via use of an ?kzxf-idt-iwhde clip (StentFix, OVESCO MR ?conditional). Moderate Sedation: [...] Procedure Code(s): ? --- Professional --- ? 75098, Esophagoscopy, flexible, transoral; with placement of endoscopic ? stent (includes pre- and post-dilation and guide wire passage, when ? performed) ? 03777, Esophagoscopy, flexible, transoral; with endoscopic ultrasound ? examination ? 47593, 59, Fluoroscopy (separate procedure), up to 1 hour physician or ? other qualified health medical care evaluation specialist time Diagnosis Code(s): ?--- Professional --- ?K22.89, Other specified disease of esophagus ?C15.9, Malignant neoplasm of esophagus, unspecified ?R13.10, Dysphagia, unspecified CPT copyright 2021 [employer]. All rights reserved. The codes documented in this report are preliminary and upon supervisor coke handling review may be revised to meet current compliance requirements. Vitaly Guillory MD 10/18/2024 12:24:47 PM Note Initiated On: 10/18/2024 10:31 AM Number of Addenda: 0 ? [facility] ? [address] [place] [address] [facility] PROVATION 10/18/2024 10:3 1 AM SHELL GRADER Vitaly Giullory MD GI PROCEDURE ORDERABLES Performing Organization Address City/State/[facility] Co de Phone Number [facility] PROVATION from Last 3 Months Care Teams Ferry Boat Captain Relationship Specialty Start Date End Date Alejandro Flynn MD [address] [place] [address] PCP - General Internal Medicine 10/16/24 Spencer Hoyos [address] [place] [address] Referring Physician 10/16/24
--- OUTSIDE RECORDS SUMMARY | 2024-10-22 13:27 | XMS_ITS | Patient Health Summary ---
Author Organization [facility] Address [address] [place] [address] Care Team Providers Care Dehorner Name Role Phone Alejandro Flynn MD Primary Care Provider [phone] Spencer Hoyos Unavailable Unavailable Note from [facility],non-owned Affiliates and Associated Physician Practices is amultiple site organization consisting of ambulatory clinics and hospital sitesin [place], [place], [place] and [place]. This disclosure is being madepursuant to the Care Everywhere program and may not contain all information available regarding this patient. Last updated 18.[facility] Allergies No known active allergies Medications * Be aware that medications may not be up to date on this document. Alwaysverify current medications with the patient. * atorvastatin (Lipitor) 20 MG tablet Take 1 (one) tablet by mouth once daily * B Complex Vitamins (Vitamin B-Complex) TABS Take 1 tablet by mouth every morning * cephalexin (Keflex) 500 MG tablet(Started 08/02/2024) Take 1 (one) tablet by mouth every 12 hours FOR 10 DAYS * Cholecalciferol (Vitamin D3) 25 MCG (1000 UT)(Started 02/08/2023) Take 2 (two) capsules by mouth every morning * trimethoprim (Trimpex) 100 MG tablet Take 1 (one) tablet by mouth at bedtime * Gemtesa 75 MG tablet Take 1 (one) tablet by mouth at bedtime * naproxen (Naprosyn) 375 MG tablet(Started 09/14/2024) TAKE 1 TABLET(375 MG) BY MOUTH TWICE DAILY NEEDED FOR PAIN * Morphine Sulf Microinfusion PF (Mitigo) injection(Started 06/20/2024) * mirtazapine (Remeron) 30 MG tablet Take 1 (one) tablet by mouth at bedtime * oxyCODONE, immediate release, (Roxicodone) 5 MG tablet(Started 10/18/2024) Take 1 (one) tablet by mouth every 8 hours as needed for Pain Reasons: Acute Pain * pantoprazole EC (Protonix) 40 MG tablet(Started 10/18/2024) Take 1 (one) tablet by mouth 2 times daily Reasons: Cancer of the Esophagus, Gastroesophageal Reflux Disease 3 refills by 10/18/2025 * sucralfate (Carafate) 1 GM/10ML suspension(Started 10/19/2024) Take 10 mL by mouth 4 times daily for 5 days Reasons: Esophagus Inflammation Ended Medications* pantoprazole EC (Protonix) 40 MG tablet(Discontinued) Take 1 (one) tablet by mouth 2 times daily Social History Tobacco Use Types Packs/Day Years [...] Comments Blood Pressure 148/69 10/18/2024 1:30 PM TOBACCO STRIPPER HAND Pulse 65 10/18/2024 1:30 PM TOBACCO STRIPPER HAND Temperature 36 ??C (96.8 ??F) 10/18/2024 12:50 PM TOBACCO STRIPPER HAND Respiratory Rate 10 10/18/2024 1:30 PM TOBACCO STRIPPER HAND Oxygen Saturation 99% 10/18/2024 1:30 PM TOBACCO STRIPPER HAND Inhaled Oxygen Concentration - - Weight 63 kg (139 lb) 10/18/2024 10:31 AM TOBACCO STRIPPER HAND Height 182.9 cm (6') 10/18/2024 10:31 AM TOBACCO STRIPPER HAND Body Mass Index 18.85 10/18/2024 10:31 AM TOBACCO STRIPPER HAND Medical Devices Implanted Type Area Optical Manufacturing Technician Device Identifier Shelf Expiration Date Model / Serial / Lot Esophageal Tts Stent 22mm X 150mm Implanted:Qty: 1 on 10/18/2024 by Vitaly Goodson MD at [facility] N/A: Esophagus 03/28/2026 [id number] / [id number] / [id number] Description:[employer] Esophageal Stent 22mm x 150mm Procedures * ENDOTRACHEAL TUBE NOTE(Performed 10/18/2024) * [place] ENDOSCOPIC ULTRASOUND EXAM(Performed 10/18/2024) Performed for Dysphagia, unspecified type * CBC W/O DIFFERENTIAL(Performed 10/18/2024) Performed for Pre-op exam * BASIC METABOLIC PANEL (CALCIUM TOTAL)(Performed 10/18/2024) Performed for Pre-op evaluation * ENDOSCOPIC ULTRASONOGRAPHY, GI(Performed 10/18/2024) * EKG 12-LEAD(Performed 10/18/2024) Performed for Pre-op evaluation * DERMATOPATHOLOGY(Performed 05/19/2021) * DERMATOPATHOLOGY(Performed 03/15/2017) * DERMATOPATHOLOGY(Performed 03/01/2017) Results * ETT LINE PERFORMABLE (10/18/2024 11:14 AM TOBACCO STRIPPER HAND) Narrative Sapna Ojeda APRN-CRNA - 10/18/2024 11:14 AM TOBACCO STRIPPER HAND Sapna Ojeda APRN-CRNA ? 10/18/2024 11:16 AM Endotracheal Tube Placement: ? Intubation Event Date/Time: ??10/18/2024 11:08 AM Procedure: intubation (18286) Procedure Section: ?? Sedation: under general anesthesia. [...] AM. Staff Section ? Anesthesia Provider: Sapna jOeda APRN-CRNA, Performed the procedure Sujata Benson MD GENERAL ANESTHESIA O RDERABLES * (ABNORMAL) CBC W/O DIFFERENTIAL (10/18/2024 10:41 AM TOBACCO STRIPPER HAND) WBC 7.4 4.0 - 10.7 x10E9/L 10/18/2024 10:57 AM [facility] RBC Count 3.86(L) 4.30 - 5.80 x10E12/L 10/18/2024 10:57 AM [facility] Hemoglobin 12.0(L) 13.3 - 17.5 g/dL 10/18/2024 10:57 AM [facility] Hematocrit 36.0(L) 38.7 - 51.1 % 10/18/2024 10:57 AM [facility] MCV 93.3 80.0 - 98.0 fL 10/18/2024 10:57 AM [facility] MCH 31.1 26.7 - 33.6 pg 10/18/2024 10:57 AM [facility] MCHC 33.3 31.7 - 36.3 g/dL 10/18/2024 10:57 AM [facility] RDW-CV 12.2 11.3 - 14.8 % 10/18/2024 10:57 AM [facility] Platelet Count 290 150 - 420 x10E9/L 10/18/2024 10:57 AM [facility] MPV 9.7 7.8 - 11.4 fL 10/18/2024 10:57 AM [facility] Blood BLOOD SPECIMEN / Unknown Venipuncture / Unknown 10/18/2024 10:41 AM TOBACCO STRIPPER HAND 10/18/2024 10:48 AM TOBACCO STRIPPER HAND Sujata Benson MD LAB - HEMATOLOGY ORD ERABLES [facility] [address] [place] [phone], [facility] [phone] * (ABNORMAL) BASIC METABOLIC PANEL (CALCIUM TOTAL) (10/18/2024 10:41 AM TOBACCO STRIPPER HAND) Pathologist [facility] BUN 23 7 - 26 mg/dL 10/18/2024 11:20 AM [facility] Creatinine 0.81 0.71 - 1.16 mg/dL 10/18/2024 11:20 AM [facility] Sodium 138 136 - 145 mmol/L 10/18/2024 11:20 AM [facility] Potassium 3.7 3.5 - 4.5 mmol/L 10/18/2024 11:20 AM [facility] Chloride 102 98 - 107 mmol/L 10/18/2024 11:20 AM [facility] CO2 26 22 - 29 mmol/L 10/18/2024 11:20 AM [facility] Glucose 93 70 - 99 mg/dL 10/18/2024 11:20 AM [facility] Calcium 9.6 8.4 - 10.2 mg/dL 10/18/2024 11:20 AM [facility] Anion Gap 10 6 - 16 10/18/2024 11:20 AM [facility] BUN/Creatinine Ratio 28(H) 7 - 23 10/18/2024 11:20 AM [facility] Osmolality Calculated 289 275 - 295 mOsm/kg 10/18/2024 11:20 AM [facility] eGFR by CKD-EPI 90 >=90 mL/min/1.7 3 m2 10/18/2024 11:20 AM [facility] Blood BLOOD SPECIMEN / Unknown Venipuncture / Unknown 10/18/2024 10:41 AM TOBACCO STRIPPER HAND 10/18/2024 10:48 AM [facility] Sujata Benson MD LAB - CHEMISTRY [facility] Organization Address City/State/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 A large ? circumferential nearly [...] in place via the use of an xtsb-ghj-wuprz ? 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 Endosonographic staging consistent with at ?least T3N1Mx disease (exam limited by inability to ?pass the echoendoscope through the area of ?narrowing). ?- One 22 mm x 150 mm esophageal fully covered metal ?stent (Taewoon) placed across the area of ?narrowing, and proximally anchored via use of an ?vpdy-nxr-yllxq clip (StentFix, OVESCO MR ?conditional). Moderate Sedation: [...] Procedure Code(s): ? --- Professional --- ? 75396, Esophagoscopy, flexible, transoral; with placement of endoscopic ? stent (includes pre- and post-dilation and guide wire passage, when ? performed) ? 75979, Esophagoscopy, flexible, transoral; with endoscopic ultrasound ? examination ? 29550, 59, Fluoroscopy (separate procedure), up to 1 hour physician or ? other qualified health healthcare administrative assistant time Diagnosis Code(s): ?--- Professional --- ?K22.89, Other specified disease of esophagus ?C15.9, Malignant neoplasm of esophagus, unspecified ?R13.10, Dysphagia, unspecified CPT copyright 2021 [place] [employer]. All rights reserved. The codes documented in this report are preliminary and upon activities concierge review may be revised to meet current compliance requirements. Vitaly Guillory MD 10/18/2024 12:24:47 PM Note Initiated On: 10/18/2024 10:31 AM Number of Addenda: 0 ? [facility] ? [address] [place], [place] [address] [place] [address] PROVATION 10/18/2024 10:3 1 AM TOBACCO STRIPPER HAND Vitaly Guillory MD GI PROCEDURE ORDERABLES [facility] PROVATION * DERMATOPATHOLOGY (05/19/2021 3:33 AM CDT) Only the most recent of3 resultswithin the time period is included. Case Report Dermatopathology Report ? Case: [id number] ? Authorizing Provider: ??Krystal Long MD ?Collected: ? 05/19/2021 03:33 AM ? Ordering Location: ? [facility] DermPath Lab ?Received: ?05/20/2021 05:59 AM ? Pathologist: ? Salome Lundberg, ? MD ? Specimen: ?Skin, left helix ? 1 4:59 PM CDT DERMATOPATHOLOGY LABORATORY Final Diagnosis Specimen A. 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 4:59 PM CDT DERMATOPATHOLOGY LABORATORY Gross Description Specimen A: Received is one formalin filled container labeled with the patient's name and designated left helix. The specimen consists of a shave measuring [id number]. Jar 0+. 4:59 PM CDT DERMATOPATHOLOGY LABORATORY Microscopic Description Specimen A. SKIN, left helix: Sections reveal parakeratosis, acanthosis and keratinocyte dysmaturation which is most prominent in the lower epidermis but focally extends through the entire epidermis. 4:59 PM CDT DERMATOPATHOLOGY LABORATORY Disclaimer An external and internal positive and negative controls are appropriate for the histochemical, immunohistochemical and immunofluorescence stain(s) in this case (if any), except where stated explicitly. The performance characteristics of the stain(s) cited in this report were developed and its performance characteristic determined by the Dermatopathology Laboratory at [facility], directed by Dr. Kathryn Redmond. These tests need not be, and therefore are not, approved by the [place] Food and Drug Administration. The tests are used for clinical purposes. Billing Codes Specimen Charges Stain Charges 74353 1 4:59 PM CDT DERMATOPATHOLOGY LABORATORY Embedded Images 4:59 PM CDT DERMATOPATHOLOGY LABORATORY Pathology/Cytolo gy TISSUE SPECIMEN FROM SKIN / Unknown 05/19/2021 3:33 AM CDT 05/20/2021 5:59 AM CDT Krystal Long MD LAB - PATHOLOGY/CYTO LOGY ORDERABLES DERMATOPATHOLOGY LABORATORY [facility] - Department of Dermatology [facility] [address] [place] [address], [address] [phone] Care Teams Dehorner Relationship Specialty Start Date End Date Alejandro Flynn MD [address] [place] [address] PCP - General Internal Medicine 10/16/24 Spencer Hoyos [address] [facility] [address] [address] Referring Physician 10/16/24
[2024-10-22 13:36] VITALS: BP 102/69; PULSE 82; RESP 14; TEMP 36.5; O2SAT 99
--- NOTE | 2024-10-22 17:07 | ECG_ITS ---
Test Date: 2024-10-22 18:03:09 Measurements Intervals [place] Rate: 79 P: 100 IN: 148 QRS: -66 QRSD: 142 T: 93 QT: 376 QTc: 432 Interpretive Statements SINUS RHYTHM RIGHT BUNDLE BRANCH BLOCK LEFT ANTERIOR FASCICULAR BLOCK BASELINE ARTIFACT- I, II, III, AVR, AVL, AVF, V1-V6 ABNORMAL ECG Compared to ECG 05/22/2024 20:51:49 LEFT ANTERIOR FASCICULAR BLOCK NOW PRESENT Electronically Signed On 10-22-2024 19:08:24 WET PAN MIXER by Mulugeta Zayas D.O.
[2024-10-22 17:27] VITALS: BP 115/72; PULSE 87; RESP 21; O2SAT 99
[2024-10-22] MEDS: SODIUM CHLORIDE 0.9% IV 1,000 ML 999 ML IV CONT ×2 (17:45→18:35)
[2024-10-22 17:49] LABS: Basophils Absolute Auto 0.1 K/mm3 (0.0-0.1); Basophils Percent Auto 0.4 % (0.2-1.2); Hematocrit 43.7 % (42.0-52.0); Hemoglobin 14.6 g/dL (14.0-18.0); Immature Granulocyte Absolute 0.26 K/mm3 (0.00-0.031); Immature Granulocyte Percent A 0.8 % (0-0.5); Lymphocytes Absolute Auto 1.28 K/mm3 (0.9-3.2); Lymphocytes Percent Auto 3.9 % (18.3-44.2); Mean Corpuscular HGB Conc 33.4 g/dl (32-36); Mean Corpuscular Hemoglobin 31.9 pg (26-34); Mean Corpuscular Volume 95.6 fl (80-100); Mean Platelet Volume 9.9 fl (7.4-10.4); Monocytes Absolute Auto 1.4 K/mm3 (0.1-0.6); Monocytes Percent Auto 4.4 % (2.6-8.5); Neutrophils Absolute Auto 29.5 K/mm3 (1.3-6.7); Neutrophils Percent Auto 90.5 % (45.5-73.1); Platelet Count Result 281 k/mm3 (150-375); Red Blood Count 4.57 M/mm3 (4.6-6.20); Red Cell Distribution Width 12.7 % (11.5-14.5); White Blood Count 32.6 K/mm3 (4.5-10.0)
[2024-10-22 17:59] LABS: Alanine Aminotransferase 53 U/L (6-50); Albumin Level 4.1 g/dL (3.5-5.1); Alkaline Phosphatase 145 U/L (38-126); Anion Gap 10 mmol/L (4-12); Aspartate Amino Transferase 87 U/L (17-59); Bilirubin,Total 0.7 mg/dL (0.2-1.3); Blood Urea Nitrogen 23 mg/dL (9-20); Calcium 10.4 mg/dL (8.4-10.2); Carbon Dioxide 29 mmol/L (22-30); Chloride 97 mmol/L (98-107); Creatine Kinase 213 U/L (55-170); Estimated CRCL calculation 54 ml/min; Estimated Glomerular Filt Rate > 60; Glucose 135 mg/dL (65-110); Potassium 3.9 mmol/L (3.4-5.0); Sodium 136 mmol/L (137-145)
[2024-10-22 18:09] LABS: INR 1.1; Prothrombin Time 14.2 Seconds (11.1-14.7)
--- NOTE | 2024-10-22 18:21 | ED.AMS ---
HPI - Altered Mental Status General Chief Complaint: Altered Mental Status Stated Complaint: AMS, weak Time Seen by Provider: 10/22/24 17:07 Source: patient, family and old records reviewed Mode of arrival: EMS Limitations: clinical condition and dementia History of Present Illness HPI narrative: Patient is a 79-year-old male who presents the ED via EMS with report of altered mental status. Family at bedside assisted in providing information. Reports patient was recently diagnosed with obstructing esophageal mass/esophageal adenocarcinoma. Was referred to [facility] for esophageal stent placement which was performed 10/18. Since then, family reports patient has had trouble keeping down food and drink. States he is able to swallow, but typically within 1 hour, patient experiences acid reflux and will regurgitate some of the food and liquid. He is on Protonix twice daily and has been taking this. Family is concerned that patient is becoming very dehydrated. They state he has been increasingly weak and altered since this morning. They are also concerned for UTI and states patient has been some early altered in the past with previous UTIs. Denies known fevers. Patient denies any pain. Denies shortness of breath. Denies nausea. Related Data Home Medications ?Medication ?Instructions ?Recorded ?Confirmed ?Last Taken ?Type hydrocodone 10 mg-acetaminophen 1 tablet PO Q8H PRN Pain 08/14/19 10/04/24 10/03/24 History 325 mg tablet cyanocobalamin (vitamin B-12) 1,000 mcg PO DAILY 07/23/20 10/04/24 10/03/24 History 1,000 mcg tablet morphine See Rx Instructions .Route .COMPLEX 07/23/20 10/03/24 Unknown History aspirin 81 mg tablet 81 mg PO DAILY 12/31/21 10/04/24 10/03/24 History nitroglycerin 0.4 mg sublingual 0.4 mg sublingual Q5-10M PRN Chest 12/31/21 10/03/24 Unknown History tablet Pain cetirizine 10 mg tablet 10 mg PO DAILY PRN Allergy Symptoms 12/25/22 10/04/24 10/03/24 History sennosides 8.6 mg tablet (senna) 25.8 mg PO BID 12/25/22 10/04/24 10/03/24 History cholecalciferol (vitamin D3) 50 50 mcg PO DAILY 06/17/23 10/04/24 10/03/24 History mcg (2,000 unit) capsule acetaminophen 325 mg tablet 325 mg PO DAILY PAIN 05/23/24 10/04/24 10/03/24 History (Tylenol) lidocaine 5 % topical patch 1 patch transdermal DAILY PRN Pain 05/23/24 10/03/24 Unknown History mirtazapine 30 mg tablet 30 mg PO HS 05/23/24 10/04/24 10/03/24 History mupirocin 2 % topical ointment 1 applic topical BID 05/23/24 10/04/24 10/03/24 History naproxen 375 mg tablet 375 mg PO BID PRN pain 05/23/24 10/03/24 Unknown History vibegron 75 mg tablet (Gemtesa) 75 mg PO HS 05/23/24 10/04/24 10/03/24 History collagenase clostridium histo. 250 1 applic topical DAILY 10/03/24 10/04/24 10/03/24 History unit/gram topical ointment (Santyl) trimethoprim 100 mg tablet 100 mg PO HS 10/03/24 10/04/24 10/03/24 History Allergies Allergy/AdvReac Type Severity Reaction Status Date / Time No Known Allergies Allergy Verified 10/04/24 11:16 Review of Systems Review of Systems: All systems reviewed & are unremarkable except as noted in HPI. 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, right eye, sequela Mixed hyperlipidemia Osteoporosis Aortic stenosis Diverticulosis Chronic back pain with active pain pump Dextroscoliosis Diastolic dysfunction Spinal stenosis Vitamin D deficiency Vitamin B6 deficiency Chronic UTI Urethral stricture dilated Esophageal web egd ..20 bougied Allergic rhinitis Carpal tunnel syndrome Nicotine dependence, cigarettes, uncomplicated Occlusion and stenosis of bilateral carotid arteries Arthritis, lumbar spine BPH w/o urinary obs/LUTS Normocytic anemia Anxiety Depression DDD (degenerative disc disease) Barretts esophagus (~2019) GERD (gastroesophageal reflux disease) Hypertension PVD (peripheral vascular disease) CAD (coronary artery disease) History of angina Left cataract Surgical History Surgical History Status post open reduction with internal fixation of fracture (12/2022) 4 part left intratrochanteric fracture with IT nail placement 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 PCP is Dr. Israel Smoking packs per day: 1 Smoking cigarettes per day: 20.0 Years smoked: 60 Smoking pack-years: 60.00 Smoking status: Former smoker Tobacco type: cigarettes Second hand tobacco smoke exposure: Yes Alcohol intake: current Drinks per week: 0 Alcohol use details: Social use Substance use: never Substance use type: does not use Lack of Transportation: No Lack of Food: Never True Current Housing: I Have Housing Concerned About Future Housing: No Difficulty Paying Gas/Electric Bills: Decline to Answer Difficulty Paying for Meds: Decline to Answer Currently Unemployed: Decline to Answer Education: Decline to Answer Difficulty w/ Childcare or Family Care: No Living arrangements: with family Occupation/Education: retired Gender identity (if verbalized by the patient): Male Spiritual care concerns: No Agree to blood products: Yes Exam Narrative: GENERAL: Elderly, frail, non-toxic, in no acute distress. HEAD: Normocephalic, atraumatic. RESPIRATORY: Airway patent, respirations nonlabored. Clear to auscultation bilaterally, no rales, rhonchi, wheezing. CARDIOVASCULAR: Regular rate and rhythm without murmurs, rubs, or gallops. ABDOMINAL: Soft, no tenderness throughout abdomen, nondistended. Normoactive BS. MUSCULOSKELETAL: Moves all extremities. No gross deformities. SKIN: Warm, dry, normal color. NEURO: A&O X3. Able to answer all questions, but is confused at times. [place]. Speech clear. Cranial nerves II-XII grossly intact. No ataxic movements. PSYCHIATRIC: Appropriate mood and affect. Normal interaction. Course Vital Signs Vital signs: Vital Signs Temperature 97.7 F 10/22/24 13:36 Pulse Rate 82 10/22/24 13:36 Respiratory Rate 14 10/22/24 13:36 Blood Pressure 102/69 10/22/24 13:36 Pulse Oximetry 99 10/22/24 13:36 Temperature 97.7 F 10/22/24 13:36 Pulse Rate 88 10/23/24 00:13 Respiratory Rate 15 10/23/24 00:13 Blood Pressure 108/56 L 10/23/24 00:13 Pulse Oximetry 99 10/23/24 00:13 Oxygen Delivery Room Air 10/22/24 17:27 MDM - Altered Mental Status MDM Narrative Medical decision making narrative: Patient presented to ED with family with decreased p.o. intake, dehydration, AMS, weakness, recent dx of esophageal cancer. VSS upon arrival. Patient is in no acute distress. No appreciable focal deficits. BP borderline low. Fluids initiated. CBC is with marked leukocytosis of 32.6. Neutrophil predominance. No bandemia. Stable H&H. CMP is fairly unremarkable. No significant electrolyte abnormalities. Kidney function is stable. Initial lactic acid 2.3. Liver enzymes are very mildly elevated. CK also mildly elevated to 213. Fluids ongoing. Viral swabs negative. Urine does appear infectious with 2+ leuk esterase, 11-20 white blood cell count, 4+ urine bacteria. Sent for culture. Blood cultures were obtained. Previous urine cultures have resulted positive for E coli, sensitive to rocephin. This was started in the ED. Initial chest x-ray was clear. Given marked leukocytosis, concern for sepsis, CT of chest/abdomen/pelvis was obtained and shows esophageal stenting in place, no other significant abnormalities. I did attempt to obtain CT brain, however patient's family declines this. States patient is currently presenting very similarly to patient's previous UTIs. Patient will be admitted for further evaluation, continued IV antibiotics and fluids, monitoring of laboratory studies. Discussed case with Dr. Boss, hospitalist, agreeable to admission after CT brain. Will obtain this. Discussed case with Dr. Hoyos, GI, will consult. Recommended Protonix 40 mg IV b.i.d.. Will consult for Dr. Carroll with oncology as patient is scheduled to have appointment tomorrow. CT brain negative. Patient will be admitted. He is looking and feeling improved after fluid administration. Will continue maintenance fluids. Patient is alert oriented x4 and does wish to be full code at this time. Medical Records Attestation: I reviewed the patient's medical records. Lab Data Attestation: I reviewed the patient's lab results. 10/22/24 17:40 10/22/24 17:40 Labs: Lab Results 10/22/24 10/22/24 10/22/24 Range/Units 17:40 17:42 18:20 WBC 32.6 H (4.5-10.0) K/mm3 RBC 4.57 L (4.6-6.20) M/mm3 Hgb 14.6 D (14.0-18.0) g/dL Hct 43.7 (42.0-52.0) % MCV 95.6 (80-100) fl MCH 31.9 (26-34) pg MCHC 33.4 (32-36) g/dl RDW 12.7 (11.5-14.5) % Plt Count 281 (150-375) k/mm3 MPV 9.9 (7.4-10.4) fl Immature Gran % (Auto) 0.8 H (0-0.5) % Neut % (Auto) 90.5 H (45.5-73.1) % Lymph % (Auto) 3.9 L (18.3-44.2) % [place] % (Auto) 4.4 (2.6-8.5) % Eos % (Auto) 0.0 (0-4.4) % Baso % (Auto) 0.4 (0.2-1.2) % Lymph # (Auto) 1.28 (0.9-3.2) K/mm3 [place] # (Auto) 1.4 H (0.1-0.6) K/mm3 Eos # (Auto) 0.0 (0-0.3) K/mm3 Baso # (Auto) 0.1 (0.0-0.1) K/mm3 Abs Immat Gran (auto) 0.26 H (0.00-0.031) K/mm3 Absolute Neuts (auto) 29.5 H (1.3-6.7) K/mm3 Absolute Nucleated RBC 0.000 (0.0-0.012) K/mm3 Nucleated RBC % 0.0 (0.0-0.2) % PT 14.2 (11.1-14.7) Seconds INR 1.1 APTT 33.0 (22.3-36.8) Seconds Sodium 136 L (137-145) mmol/L Potassium 3.9 (3.4-5.0) mmol/L Chloride 97 L (98-107) mmol/L Carbon Dioxide 29 (22-30) mmol/L Anion Gap 10 (4-12) mmol/L BUN 23 H (9-20) mg/dL Creatinine 0.88 (0.7-1.3) mg/dL Estim Creat Clear Calc 54 ml/min Estimated GFR > 60 (59 - ) Glucose 135 H (65-110) mg/dL Lactic Acid (0.7-2.0) mmol/L Calcium 10.4 H (8.4-10.2) mg/dL Total Bilirubin 0.7 (0.2-1.3) mg/dL AST 87 H (17-59) U/L ALT 53 H (6-50) U/L Alkaline Phosphatase 145 H (38-126) U/L Total Creatine Kinase 213 H (55-170) U/L Total Protein 8.0 (6.3-8.2) g/dL Albumin 4.1 (3.5-5.1) g/dL TSH 2.030 (0.465-4.680) uIU/mL Urine Color Yellow (Yellow) Urine Appearance Clear (Clear) Urine pH 5.5 (5.0-9.0) Ur Specific [place] 1.014 (1.001-1.035) Urine Protein Trace (Negative) mg/dL Urine Glucose (UA) Negative (Negative) mg/dL Urine Ketones Trace H (Negative) mg/dL Ur Blood (Man) Negative (Negative) Urine Nitrate Negative (Negative) Urine Bilirubin Negative (Negative) Urine Urobilinogen 0.2 (<2.0) mg/dL Add Ur Microanalysis Reviewed Leukocyte Esterase Rfl 2+ H (Negative) JACQUI/UL Urine RBC 0-2 (0-2) /hpf Urine WBC 11-20 H (0-3) /hpf Ur Squamous Epith Cells None seen (Few) /hpf Urine Bacteria 4+ H /hpf Urine Casts 0-2 Influenza A (RT-PCR) Negative (Negative) Influenza B (RT-PCR) Negative (Negative) RSV (RT-PCR) Negative (Negative) SARS-CoV-2 RNA (RT-PCR) Negative (Negative) 10/22/24 10/22/24 Range/Units 18:31 22:10 WBC (4.5-10.0) K/mm3 RBC (4.6-6.20) M/mm3 Hgb (14.0-18.0) g/dL Hct (42.0-52.0) % MCV (80-100) fl MCH (26-34) pg MCHC (32-36) g/dl RDW (11.5-14.5) % Plt Count (150-375) k/mm3 MPV (7.4-10.4) fl Immature Gran % (Auto) (0-0.5) % Neut % (Auto) (45.5-73.1) % Lymph % (Auto) (18.3-44.2) % [place] % (Auto) (2.6-8.5) % Eos % (Auto) (0-4.4) % Baso % (Auto) (0.2-1.2) % Lymph # (Auto) (0.9-3.2) K/mm3 [place] # (Auto) (0.1-0.6) K/mm3 Eos # (Auto) (0-0.3) K/mm3 Baso # (Auto) (0.0-0.1) K/mm3 Abs Immat Gran (auto) (0.00-0.031) K/mm3 Absolute Neuts (auto) (1.3-6.7) K/mm3 Absolute Nucleated RBC (0.0-0.012) K/mm3 Nucleated RBC % (0.0-0.2) % PT (11.1-14.7) Seconds INR APTT (22.3-36.8) Seconds Sodium (137-145) mmol/L Potassium (3.4-5.0) mmol/L Chloride (98-107) mmol/L Carbon Dioxide (22-30) mmol/L Anion Gap (4-12) mmol/L BUN (9-20) mg/dL Creatinine (0.7-1.3) mg/dL Estim Creat Clear Calc ml/min Estimated GFR (59 - ) Glucose (65-110) mg/dL Lactic Acid 2.3 H 2.2 H (0.7-2.0) mmol/L Calcium (8.4-10.2) mg/dL Total Bilirubin (0.2-1.3) mg/dL AST (17-59) U/L ALT (6-50) U/L Alkaline Phosphatase (38-126) U/L Total Creatine Kinase (55-170) U/L Total Protein (6.3-8.2) g/dL Albumin (3.5-5.1) g/dL TSH (0.465-4.680) uIU/mL Urine Color (Yellow) Urine Appearance (Clear) Urine pH (5.0-9.0) Ur Specific [place] (1.001-1.035) Urine Protein (Negative) mg/dL Urine Glucose (UA) (Negative) mg/dL Urine Ketones (Negative) mg/dL Ur Blood (Man) (Negative) Urine Nitrate (Negative) Urine Bilirubin (Negative) Urine Urobilinogen (<2.0) mg/dL Add Ur Microanalysis Leukocyte Esterase Rfl (Negative) JACQUI/UL Urine RBC (0-2) /hpf Urine WBC (0-3) /hpf Ur Squamous Epith Cells (Few) /hpf Urine Bacteria /hpf Urine Casts Influenza A (RT-PCR) (Negative) Influenza B (RT-PCR) (Negative) RSV (RT-PCR) (Negative) SARS-CoV-2 RNA (RT-PCR) (Negative) Imaging Data Attestation: I personally reviewed and interpreted this imaging study as follows: Radiologist's impression: ITS Impressions Chest X-Ray 10/22/24 17:36 IMPRESSION: 1. Unchanged mild bibasilar chronic interstitial lung disease. No acute cardiopulmonary disease. Chest/Abdomen/Pelvis CT 10/22/24 20:07 IMPRESSION: Gastroesophageal stent in position. Innumerable areas of decreased attenuation within the liver, for which metastatic disease is suspected. Findings consistent with patient's known esophageal cancer with a patent gastroesophageal stent. Persistent infrarenal abdominal aortic aneurysm, unchanged in size. 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 STAT RAD CT brain: No acute intracranial hemorrhage. No midline shift or mass effect. The territory of gay-white matter differentiation is maintained throughout. Age-related cerebral volume loss. Periventricular and subcortical white matter hypoattenuation, consistent with chronic microangiopathy. ECG Data EKG #1: Attestation: I personally reviewed and interpreted this ECG as follows: ECG completion date: 10/22/24 ECG completion time: 18:03 EKG Interpretation: normal rate (79), sinus rhythm and non-specific ST changes Discharge Plan Discharge Clinical Impression: Weakness, Adult failure to thrive, Adenocarcinoma of esophagus UTI (urinary tract infection) Qualifiers: Urinary tract infection type: acute cystitis Hematuria presence: without hematuria Qualified Code(s): N30.00 - Acute cystitis without hematuria Leukocytosis Qualifiers: Leukocytosis type: unspecified Qualified Code(s): D72.829 - Elevated white blood cell count, unspecified Patient Disposition: Still a Patient Condition: Guarded Prognosis Patient Language: Albanian Prescriptions: No Action cholecalciferol (vitamin D3) 50 mcg (2,000 unit) capsule 50 mcg PO DAILY pantoprazole 40 mg tablet,delayed release (DR/EC) 40 mg PO BID 90 Days Qty: 180 3RF cyanocobalamin (vitamin B-12) 1,000 mcg Tablet 1,000 mcg PO DAILY morphine See Rx Instructions .ROUTE .COMPLEX Patient Comments: pain pump-recalled from patient history Rx Instructions: Morphine pain pump in left abdomen for back pain nitroglycerin 0.4 mg tablet, sublingual 0.4 mg sublingual Q5-10M PRN (Reason: Chest Pain) aspirin 81 mg Tablet 81 mg PO DAILY hydrocodone-acetaminophen 10-325 mg tablet 1 tablet PO Q8H PRN (Reason: Pain) naproxen 375 mg tablet 375 mg PO BID PRN (Reason: pain) mirtazapine 30 mg tablet 30 mg PO HS Gemtesa 75 mg tablet 75 mg PO HS acetaminophen [Tylenol] 325 mg Tablet 325 mg PO DAILY lidocaine 5 % adhesive patch,medicated 1 patch transdermal DAILY PRN (Reason: Pain) Rx Instructions: Apply for pain 12 hrs on and off for 12 hrs mupirocin 2 % ointment 1 applic TOPICAL BID Rx Instructions: Apply to Left foot Santyl 250 unit/gram ointment 1 applic TOPICAL DAILY trimethoprim 100 mg tablet 100 mg PO HS atorvastatin 20 mg tablet 20 mg PO DAILY Qty: 90 2RF nitrofurantoin monohyd/m-cryst [Macrobid] 100 mg capsule See Rx Instructions PO .COMPLEX Qty: 30 0RF Rx Instructions: take 1 capsule bid for 10 days and then 1 capsule daily for 10 days orally; must administer with a meal/food sennosides [senna] 8.6 mg Tablet 25.8 mg PO BID cetirizine 10 mg Tablet 10 mg PO DAILY PRN (Reason: Allergy Symptoms) Follow-up/Referrals: Alejandro Flynn MD [Primary Care Provider] -
[2024-10-22 18:28] LABS: Influenza A QL RT-PCR Negative (Negative); Influenza B QL RT-PCR Negative (Negative); RSV RNA, RT-PCR Negative (Negative); SARS-CoV-2 RNA PCR Negative (Negative)
[2024-10-22] MEDS: PANTOPRAZOLE SODIUM IV 40 MG VIAL IV PUSH (18:35)
--- OUTSIDE RECORDS SUMMARY | 2024-10-22 18:58 | XMS_ITS | Continuity of Care Document ---
Author Organization [facility] Address [address] [place] [address] Phone Care Team Providers Care Floor Steward/Stewardess Name Role Phone Ana Carlson PTA Unavailable Unavail able Procedures Procedure Date Aquatic Therapy Aquatic Therapy PT Evaluation High Complexity 9 Therapeutic Exercise Neuromuscular Re-Ed Advance Directives Directive Yes / No Effective Date File Name No Information Encounters Encounter Description Practice Location Reason(s) For Visit Diagnoses Date Provider Providers Copied on Encounter [facility], [address] [address], [place], [place], [id number], tel:[phone] [place] No Information 9 Aldo mays [address] [facility], [address], [facility], [place]. tel: [phone] [address], [id number], tel:[phone] [place] Radiculopathy, lumbar regionUnspecifie d abnormalities of gait and mobilityOth symptoms and signs involving the musculoskeletal systemMuscle weakness (generalized) b 9 Aldo mays [address] [facility], [address], [place], [facility], [place]. [phone] Referring Provider: Inderjit De La Rosa, [address], [place], [address]. tel:[phone] [facility], [place], [place], [id number], tel:[phone] [place] Radiculopathy, lumbar regionUnspecifie d abnormalities of gait and mobilityOth symptoms and signs involving the musculoskeletal systemMuscle weakness (generalized) 9 Aldo mays [address] [facility], [address], [place], [facility], . tel: [phone] Referring Provider: Inderjit De La Rosa, [address] [place] [address] [address], [place], [address]. tel:[phone] [facility], [place], [place], [id number], tel:[phone] [place] Radiculopathy, lumbar regionUnspecifie d abnormalities of gait and mobilityOth symptoms and signs involving the musculoskeletal systemMuscle weakness (generalized) 9 Franco Borjas . Referring Provider: Inderjit De La Rosa, [address] [place] [address] [address], [place], [address]. tel:[phone] Family History Family Member Type Diagnosis Age At Onset No Information Payers Payer name Insurance type Covered republican ID Authornedraa tirashaad(s) Medicare [place] [id number] [facility] [id number] Social History Type Description Quantity Date Captured [...]
--- OUTSIDE RECORDS SUMMARY | 2024-10-22 18:58 | XMS_ITS | Patient Health Summary ---
Author Organization [facility] Address [address] [place] [address] Care Team Providers Care Japanese Professor Name Role Phone Alejandro Flynn MD Primary Care Provider [phone] Spencer Hoyos Unavailable Unavailable Note from [facility],non-owned Affiliates and Associated Physician Practices is amultiple site organization consisting of ambulatory clinics and hospital sitesin [place], [place], [place] and [place]. This disclosure is being madepursuant to the Care Everywhere program and may not contain all information available regarding this patient. Last updated 18.[facility] Allergies No known active allergies Medications * [...] Comments Blood Pressure 148/69 10/18/2024 1:30 PM CULTURE ROOM WORKER Pulse 65 10/18/2024 1:30 PM CULTURE ROOM WORKER Temperature 36 ??C (96.8 ??F) 10/18/2024 12:50 PM CULTURE ROOM WORKER Respiratory Rate 10 10/18/2024 1:30 PM CULTURE ROOM WORKER Oxygen Saturation 99% 10/18/2024 1:30 PM CULTURE ROOM WORKER Inhaled Oxygen Concentration - - Weight 63 kg (139 lb) 10/18/2024 10:31 AM CULTURE ROOM WORKER Height 182.9 cm (6') 10/18/2024 10:31 AM CULTURE ROOM WORKER Body Mass Index 18.85 10/18/2024 10:31 AM CULTURE ROOM WORKER Medical Devices Implanted Type Area Dna Sequencing Associate Device Identifier Shelf Expiration Date Model / Serial / Lot Esophageal Tts Stent 22mm X 150mm Implanted:Qty: 1 on 10/18/2024 by Vitaly Goodson MD at [facility] N/A: Esophagus 03/28/2026 [id number] / [id number] / [id number] Description:[employer] Esophageal Stent 22mm x 150mm Procedures * ENDOTRACHEAL TUBE NOTE(Performed 10/18/2024) * MT ENDOSCOPIC ULTRASOUND EXAM(Performed 10/18/2024) Performed for Dysphagia, unspecified type * CBC W/O DIFFERENTIAL(Performed 10/18/2024) Performed for Pre-op exam * BASIC METABOLIC PANEL (CALCIUM TOTAL)(Performed 10/18/2024) Performed for Pre-op evaluation * ENDOSCOPIC ULTRASONOGRAPHY, GI(Performed 10/18/2024) * EKG 12-LEAD(Performed 10/18/2024) Performed for Pre-op evaluation * DERMATOPATHOLOGY(Performed 05/19/2021) * DERMATOPATHOLOGY(Performed 03/15/2017) * DERMATOPATHOLOGY(Performed 03/01/2017) Results * ETT LINE PERFORMABLE (10/18/2024 11:14 AM CULTURE ROOM WORKER) Narrative Sapna Ojeda APRN-CRNA - 10/18/2024 11:14 AM CULTURE ROOM WORKER Sapna Ojeda APRN-CRNA ? 10/18/2024 11:16 AM Endotracheal Tube Placement: ? Intubation Event Date/Time: ??10/18/2024 11:08 AM Procedure: intubation (09588) Procedure Section: ?? Sedation: under general anesthesia. [...] Staff Section ? Anesthesia Provider: Sapna Ojeda APRN-CRNA, Performed the procedure Sujata Benson MD GENERAL ANESTHESIA O RDERABLES * (ABNORMAL) CBC W/O DIFFERENTIAL (10/18/2024 10:41 AM CULTURE ROOM WORKER) WBC 7.4 4.0 - 10.7 x10E9/L 10/18/2024 10:57 AM [facility] RBC Count 3.86(L) 4.30 - 5.80 x10E12/L 10/18/2024 10:57 AM [facility] Hemoglobin 12.0(L) 13.3 - 17.5 g/dL 10/18/2024 10:57 AM [facility] Hematocrit 36.0(L) 38.7 - 51.1 % 10/18/2024 10:57 AM [facility] MCV 93.3 80.0 - 98.0 fL 10/18/2024 10:57 AM [facility] MCH 31.1 26.7 - 33.6 pg 10/18/2024 10:57 AM [facility] MCHC 33.3 31.7 - 36.3 g/dL 10/18/2024 10:57 AM [facility] RDW-CV 12.2 11.3 - 14.8 % 10/18/2024 10:57 AM [facility] Platelet Count 290 150 - 420 x10E9/L 10/18/2024 10:57 AM [facility] MPV 9.7 7.8 - 11.4 fL 10/18/2024 10:57 AM [facility] Blood BLOOD SPECIMEN / Unknown Venipuncture / Unknown 10/18/2024 10:41 AM CULTURE ROOM WORKER 10/18/2024 10:48 AM CULTURE ROOM WORKER Sujata Benson MD LAB - HEMATOLOGY ORD ERABLES [facility] [address] [place] [id number], [facility] [phone] * (ABNORMAL) BASIC METABOLIC PANEL (CALCIUM TOTAL) (10/18/2024 10:41 AM CULTURE ROOM WORKER) Pathologist [facility] BUN 23 7 - 26 mg/dL 10/18/2024 11:20 AM [facility] Creatinine 0.81 0.71 - 1.16 mg/dL 10/18/2024 11:20 AM [facility] Sodium 138 136 - 145 mmol/L 10/18/2024 11:20 AM [facility] Potassium 3.7 3.5 - 4.5 mmol/L 10/18/2024 11:20 AM [facility] Chloride 102 98 - 107 mmol/L 10/18/2024 11:20 AM [facility] CO2 26 22 - 29 mmol/L 10/18/2024 11:20 AM [facility] Glucose 93 70 - 99 mg/dL 10/18/2024 11:20 AM [facility] Calcium 9.6 8.4 - 10.2 mg/dL 10/18/2024 11:20 AM [facility] Anion Gap 10 6 - 16 10/18/2024 11:20 AM [facility] BUN/Creatinine Ratio 28(H) 7 - 23 10/18/2024 11:20 AM [facility] Osmolality Calculated 289 275 - 295 mOsm/kg 10/18/2024 11:20 AM [facility] eGFR by CKD-EPI 90 >=90 mL/min/1.7 3 m2 10/18/2024 11:20 AM [facility] Blood BLOOD SPECIMEN / Unknown Venipuncture / Unknown 10/18/2024 10:41 AM CULTURE ROOM WORKER 10/18/2024 10:48 AM [facility] Sujata Benson MD LAB - CHEMISTRY HARMAN WILLAMS 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 A large ? circumferential nearly [...] in place via the use of an igoa-ikc-elkmj ? 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 Endosonographic staging consistent with at ?least T3N1Mx disease (exam limited by inability to ?pass the echoendoscope through the area of ?narrowing). ?- One 22 mm x 150 mm esophageal fully covered metal ?stent (Taewoon) placed across the area of ?narrowing, and proximally anchored via use of an ?oglu-krt-qytst clip (StentFix, OVESCO MR ?conditional). Moderate Sedation: [...] Procedure Code(s): ? --- Professional --- ? 40941, Esophagoscopy, flexible, transoral; with placement of endoscopic ? stent (includes pre- and post-dilation and guide wire passage, when ? performed) ? 50275, Esophagoscopy, flexible, transoral; with endoscopic ultrasound ? examination ? 06857, 59, Fluoroscopy (separate procedure), up to 1 hour physician or ? other qualified health nurse healthcare manager time Diagnosis Code(s): ?--- Professional --- ?K22.89, Other specified disease of esophagus ?C15.9, Malignant neoplasm of esophagus, unspecified ?R13.10, Dysphagia, unspecified CPT copyright 2021 [employer] [employer]. All rights reserved. The codes documented in this report are preliminary and upon placement coordinator review may be revised to meet current compliance requirements. Vitaly Guillory MD 10/18/2024 12:24:47 PM Note Initiated On: 10/18/2024 10:31 AM Number of Addenda: 0 ? [facility] ? [address] [place], [place] [address] [place] [address] [employer]OVATION 10/18/2024 10:3 1 AM CULTURE ROOM WORKER Vitaly Guillory MD GI PROCEDURE ORDERABLES [facility] [employer] * DERMATOPATHOLOGY (05/19/2021 3:33 AM CDT) Only the most recent of3 resultswithin the time period is included. Case Report Dermatopathology Report ? Case: [id number] ? Authorizing Provider: ??Krystal oLng MD ?Collected: ? 05/19/2021 03:33 AM ? Ordering Location: ? [facility] DermPath Lab ?Received: ?05/20/2021 05:59 AM ? Pathologist: ? Salome Lundberg, ? MD ? Specimen: ?Skin, left helix ? 1 4:59 PM CDT DERMATOPATHOLOGY LABORATORY Final Diagnosis Specimen A. 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 4:59 PM CDT DERMATOPATHOLOGY LABORATORY Gross Description Specimen A: Received is one formalin filled container labeled with the patient's name and designated left helix. The specimen consists of a shave measuring [id number]. Jar 0+. 4:59 PM CDT DERMATOPATHOLOGY LABORATORY [...] characteristic determined by the Dermatopathology Laboratory at [facility], directed by Dr. Kathryn Redmond. These tests need not be, and therefore are not, approved by the [place] Food and Drug Administration. The tests are used for clinical purposes. Billing Codes Specimen Charges Stain Charges 79544 1 4:59 PM CDT DERMATOPATHOLOGY LABORATORY Embedded Images 4:59 PM CDT DERMATOPATHOLOGY LABORATORY Pathology/Cytolo gy TISSUE SPECIMEN FROM SKIN / Unknown 05/19/2021 3:33 AM CDT 05/20/2021 5:59 AM CDT Krystal Long MD LAB - PATHOLOGY/CYTO LOGY ORDERABLES DERMATOPATHOLOGY LABORATORY [facility] - Department of Dermatology [facility] [address] [place] [address], [address] [phone] Care Teams Japanese Professor Relationship Specialty Start Date End Date Alejandro Flynn MD [address] [place] [address] PCP - General Internal Medicine 10/16/24 Spencer Hoyos [address] [facility] [address] [address] Referring Physician 10/16/24
--- OUTSIDE RECORDS SUMMARY | 2024-10-22 18:58 | XMS_ITS | Encounter Summary ---
Author Organization [facility] Address [address] [place] [address] Care Team Providers Care Award Machine Operator Name Role Phone Unavailable Primary Care Provider Unavailabl e Encounter Details Date Type Department Care Team (Latest Contact Info) Description 11/04/2007 Outpatient Historical HIS CARD XEROX MACHINE MECHANIC Richard Craft MD [address] [facility] [address] [place] [address] Cor Athrscl-Uns Vessel Social History Tobacco Use Types Packs/Day Years Used Date Smoking Tobacco: Never Assessed Sex and Gender Information Value Date Recorded Sex Assigned at Not on file Legal Sex Male 5:30 AM ROTARY DRILLER PROSPECTING Gender Identity Not on file Sexual Orientation Not on file documented as of this encounter Plan of Treatment Upcoming Encounters Date Type Department Care Team (Late st Contact Info) Description 10/23/2024 9:00 AM ROTARY DRILLER PROSPECTING Office Visit [facility] Oncology and Hematology - [place] [address] [facility] [address] [place] [address] Jose Armando Carroll MD [address] [facility] [address] [place] [address] documented as of this encounter Procedures Procedure Name Priority Date/Time Associated Diagnosis Comments CL CORONARY ANGIOGRAM Routine 11/07/2007 11:34 AM ROTARY DRILLER PROSPECTING documented in this encounter Results * CL CORONARY ANGIOGRAM (11/07/2007 11:34 AM ROTARY DRILLER PROSPECTING) Narrative INTERFACE SYSTEM - 11/07/2007 11:34 AM ROTARY DRILLER PROSPECTING [facility] [address] [place] [address] [email or web address] Cardiac Catheterization Comprehensive Report Patient: ?Gregory Scherer Study ID: ? [id number] Gender: ? M : ?1945 Age: ?62 years Race: ? 1 Room: Bed: Height: ? 72 in ( 182.9 cm ) Study Date: ? November 07, 2007 Patient status: Outpatient Weight: ? 220 lb ( 100 kg ) Access. #: ?[id number] POC: Attending MD: ?? John Performing MD: [...] 11:25:41 Procedure Note Provider, Historical - 11/25/2007 [address] [address] [place] [address] [email or web address] Cardiac Catheterization Comprehensive Report Patient: Gregory Scherer Study ID: [id number] Gender: M : 1945 Age: 62 years Race: 1 Room: Bed: Height: 72 in ( 182.9 cm ) Study Date: November 07, 2007 Patient status: Outpatient Weight: 220 lb ( 100 kg ) Access. #: [id number] POC: Attending MD: John Garcia MD: John Indications and History: HISTORY: Prior cardiovascular procedures: of the distal RCA ( Sep 2007 ). Pt who recently underwent RCA stenting in the setting of IWIL. Now admittedtoday for elective PCI of a [...] Coronary atherosclerosis of unspecified type of vessel, [place] or graft documented in this encounter
--- OUTSIDE RECORDS SUMMARY | 2024-10-22 18:58 | XMS_ITS | Encounter Summary ---
Author Organization [facility] Care Team Providers Care Cut Pressman Name Role Phone Pepper Encarnacion MD Primary Care Provider + Pepper Encarnacion MD Primary Care Provider + Amanda Patton RN Unavailable Unavailab Alejandro Fry MD Primary Care Provider [phone] Richard Craft MD Unavailable [phone] Jacob Aragon MD Unavailable [phone] Addison Winchester NP Unavailable [phone] Encounter Details Date Type Department Care Team (Latest Contact Info) Description 08/17/2016 Orders Only [facility] ProviderRadames MD [address] [place] [address] Social History Tobacco Use Types Packs/Day Years Used Date Smoking Tobacco: Never Assessed Comments:Smoking History Pac ks/day: 0 Packs Alcohol Use Standard Drinks/Week Comments Yes 0 (1 standard drink = 0.6 oz pur e alcohol) Sex and Gender Information Value Date Recorded Sex Assigned at Not on file Legal Sex Male 1:58 AM HANDS AND DIAL INSPECTOR Gender Identity Not on file Sexual Orientation Not on file documented as of this encounter Plan of Treatment Not on file documented as of this encounter Procedures Procedure Name Priority Date/Time Associated Diagnosis Comments CARDIOLOGY REPORT 08/19/2016 12: 00 AM HANDS AND DIAL INSPECTOR documented in this encounter Results * CARDIOLOGY REPORT (08/19/2016 12:00 AM HANDS AND DIAL INSPECTOR) Anatomical Region Laterality Modality Other Narrative 08/19/2016 12:00 AM HANDS AND DIAL INSPECTOR Ordered by an unspecified provider. us Historical Provider [facility] [place] Final Result documented in this encounter Visit Diagnoses Not on filedocumented in this encounter Care Teams Cut Pressman Relationship Specialty Start Date End Date Pepper Encarnacion MD PCP - General 11/04/16 07/08/22 Pepper Encarnacion MD PCP - General 06/16/16 11/03/16 Alejandro Flynn MD [address] [place] [address] PCP - General Internal Medicine 07/09/22 Amanda Patton, LENORA Registered Nurse 06/01/19 2 Richard Craft MD [address] [place] [address] Consulting Physician Cardiology 09/07/22 Jacob Aragon MD [address] [facility] [address] [place] [address] Consulting Physician Vascular Surgery 09/12/22 [place] [address] [facility] [address] [place] [address] Nurse Practitioner Pain Management 09/06/24 documented as of this encounter
--- OUTSIDE RECORDS SUMMARY | 2024-10-22 18:58 | XMS_ITS | Clinical Summary ---
Author Organization [facility] Address [address] [place] [address]. [place] [address] [place] [address] Care Team Providers Care Information Director Name Role Phone Unavailable Primary Care Provider [...]
--- OUTSIDE RECORDS SUMMARY | 2024-10-22 18:58 | XMS_ITS | Clinical Summary ---
Author Organization [facility] Address [address] [facility] Attn: Epic Prelude ADT [place] [address] Care Team Providers Care Double Bass Player Name Role Phone Unavailable Primary Care Provider Unavailabl e Social History Tobacco Use Types Packs/Day Years Used Date Smoking Tobacco: Never Assessed Sex and Gender Information Value Date Recorded Sex Assigned at Not on file Legal Sex Male 5:30 AM SLEEPER CUTTER Gender Identity Not on file Sexual Orientation Not on file Plan of Treatment Upcoming Encounters Date Type Department Care Team (Late st Contact Info) Description 10/23/2024 9:00 AM SLEEPER CUTTER Office Visit [facility] Oncology and Hematology - [place] [address] [facility] [address] [place] [address] Jose Armando Carroll MD [address] [facility] [address] [place] [address] Health Maintenance Due Date Last Done Comments DTAP/TDAP/TD VACCINES (1 - Tdap) 1965 PNEUMOCOCCAL VACCINE 65+ YEARS (1 of 1 - PCV) 07/17/19 96 ZOSTER VACCINE (1 of 2) 1996 RSV VACCINE (60+ or ) (1 - 1-dose 75+ series) 2021 INFLUENZA VACCINE (#1) 2024 [place] Prev entative Visit/Annual Wellness Visit 09/20/2024 Insurance [facility] [id number]
--- OUTSIDE RECORDS SUMMARY | 2024-10-22 18:58 | XMS_ITS | Encounter Summary ---
Author Organization [facility] Address [address] [place] [address] Care Team Providers Care Gold Marker Name Role Phone Unavailable Primary Care Provider Unavailabl e Encounter Details Date Type Department Care Team (Late st Contact Info) Description 11/07/2007 Outpatient Historical [facility] Cardiology [facility] [place] [address] Ciro Ross MD NO ADDRESS ON FILE Social History Tobacco Use Types Packs/Day Years Used Date Smoking Tobacco: Never Assessed Sex and Gender Information Value Date Recorded Sex Assigned at Not on file Legal Sex Male 5:30 AM SLAB LIFTING SUPERVISOR Gender Identity Not on file Sexual Orientation Not on file documented as of this encounter Plan of Treatment Upcoming Encounters Date Type Department Care Team (Late st Contact Info) Description 10/23/2024 9:00 AM SLAB LIFTING SUPERVISOR Office Visit [facility] Oncology and Hematology - [place] [address] [facility] [address] [place] [address] Jose Armando Carroll MD [address] [facility] [address] [place] [address] documented as of this encounter Visit Diagnoses Not on filedocumented in this encounter
--- OUTSIDE RECORDS SUMMARY | 2024-10-22 18:58 | XMS_ITS | Encounter Summary ---
Author Organization [facility] Address [address] [place] [address] Care Team Providers Care Front Desk Person Name Role Phone Unavailable Primary Care Provider Unavailabl e Encounter Details Date Type Department Care Team (Latest Contact Info) Description 10/12/2007 Inpatient Historical HIS CARDIAC PCU Richard Craft MD [address] [facility] [address] [place] [address] Acute, but Ill-Defined, Cerebrovascular Disease Social History Tobacco Use Types Packs/Day Years Used Date Smoking Tobacco: Never Assessed Sex and Gender Information Value Date Recorded Sex Assigned at Not on file Legal Sex Male 5:30 AM MATTRESS STRIPPER Gender Identity Not on file Sexual Orientation Not on file documented as of this encounter Plan of Treatment Upcoming Encounters Date Type Department Care Team (Late st Contact Info) Description 10/23/2024 9:00 AM MATTRESS STRIPPER Office Visit [facility] Oncology and Hematology - [place] [address] [facility] [address] [place] [address] Jose Armando Carroll MD [address] [facility] [address] [place] [address] documented as of this encounter Procedures Procedure Name Priority Date/Time Associated Diagnosis Comments CK TOTAL, RELATIVE INDEX Routine 10/14/2007 5:25 AM MATTRESS STRIPPER CKMB W/REFLEX CK Routine 10/14/2007 5:25 AM MATTRESS STRIPPER TROPONIN (W/REFLEX CKMB/CK) Routine 10/14/2007 5:25 AM MATTRESS STRIPPER CBC WITH DIFFERENTIAL Routine 10/14/2007 5:25 AM MATTRESS STRIPPER CBC WITH DIFFERENTIAL Routine 10/14/2007 5:25 AM MATTRESS STRIPPER BASIC METABOLIC PANEL Routine 10/14/2007 5:25 AM MATTRESS STRIPPER CK TOTAL, RELATIVE INDEX Routine 10/13/2007 1:56 PM MATTRESS STRIPPER CKMB W/REFLEX CK Routine 10/13/2007 1:56 PM MATTRESS STRIPPER TROPONIN (W/REFLEX CKMB/CK) Routine 10/13/2007 1:56 PM MATTRESS STRIPPER CK TOTAL, RELATIVE INDEX Routine 10/13/2007 12:40 PM MATTRESS STRIPPER CKMB W/REFLEX CK Routine 10/13/2007 12:4 0 PM MATTRESS STRIPPER TROPONIN (W/REFLEX CKMB/CK) Routine 10/13/2007 12:40 PM MATTRESS STRIPPER CBC WITH DIFFERENTIAL Routine 10/13/2007 11:00 AM MATTRESS STRIPPER CBC WITH DIFFERENTIAL Routine 10/13/2007 11:00 AM MATTRESS STRIPPER CK TOTAL, RELATIVE INDEX Routine 10/13/2007 4:28 AM MATTRESS STRIPPER CKMB W/REFLEX CK Routine 10/13/2007 4:28 AM MATTRESS STRIPPER TROPONIN (W/REFLEX CKMB/CK) Routine 10/13/2007 4:28 AM MATTRESS STRIPPER CBC WITH DIFFERENTIAL Routine 10/13/2007 4:28 AM MATTRESS STRIPPER CBC WITH DIFFERENTIAL Routine 10/13/2007 4:28 AM MATTRESS STRIPPER PROTIME-INR Routine 10/13/2007 4:28 AM MATTRESS STRIPPER PHOSPHORUS Routine 10/13/2007 4:28 AM MATTRESS STRIPPER MAGNESIUM LEVEL Routine 10/13/2007 4:28 AM MATTRESS STRIPPER LIPID PANEL Routine 10/13/2007 4:28 AM MATTRESS STRIPPER BASIC METABOLIC PANEL Routine 10/13/2007 4:28 AM MATTRESS STRIPPER PT AND APTT Routine 10/12/2007 2:10 PM MATTRESS STRIPPER CBC WITH DIFFERENTIAL Routine 10/12/2007 2:10 PM MATTRESS STRIPPER CBC WITH DIFFERENTIAL Routine 10/12/2007 2:10 PM MATTRESS STRIPPER PHOSPHORUS Routine 10/12/2007 2:10 PM MATTRESS STRIPPER MAGNESIUM LEVEL Routine 10/12/2007 2:10 PM MATTRESS STRIPPER COMPREHENSIVE METABOLIC PANEL Routine 10/12/2007 2:10 PM MATTRESS STRIPPER CK TOTAL, RELATIVE INDEX Routine 10/12/2007 1:00 PM MATTRESS STRIPPER CKMB W/REFLEX CK Routine 10/12/2007 1:00 PM MATTRESS STRIPPER TROPONIN (W/REFLEX CKMB/CK) Routine 10/12/2007 1:00 PM MATTRESS STRIPPER documented in this encounter Results * CBC WITH DIFFERENTIAL (10/14/2007 5:25 AM MATTRESS STRIPPER) NEUTROPHILS 55 45 - 70 % INTERFAC [...] 0.20 K/uL INTERFACE SYSTEM 10/14/2007 5:25 AM MATTRESS STRIPPER us Pushpa Briones MD HEMATOLOGY ORDERABLES Edited INTERFACE SYSTEM Refer to clinic/hospital department * (ABNORMAL) CBC WITH DIFFERENTIAL (10/14/2007 5:25 AM MATTRESS STRIPPER) WBC 9.2 4.0 - 9.8 K/uL INTERFACE [...] 12.4 fL INTERFACE SYSTEM 10/14/2007 5:25 AM MATTRESS STRIPPER Pushpa Briones MD HEMATOLOGY ORDERABLES Edited Performing Organization Address [facility] Phone Number INTERFACE SYSTEM Refer to clinic/hospital department * CK TOTAL, RELATIVE INDEX (10/14/2007 5:25 AM MATTRESS STRIPPER) Pathologist [facility] CK 134 10 - 170 U/L INTERFACE SYSTEM CARDIAC RELATIVE INDEX N/A <=4.0 INTERFACE SYSTEM 10/14/2007 5:25 AM MATTRESS STRIPPER Pushpa Briones MD CHEMISTRY ORDERABLES Edited Performing Organization Address [facility] Phone Number INTERFACE SYSTEM Refer to clinic/hospital department * (ABNORMAL) CKMB W/REFLEX CK (10/14/2007 5:25 AM MATTRESS STRIPPER) CKMB 9.3(AA) <=6.7 ng/mL INTERFACE SYSTEM Comment:Results called to Ta mmi at 10/14/07 7:50 AM and read back verified. CKMB INTERP See Below INTERFAC E SYSTEM Comment:Elevated CKMB,Consis tent with Myocardial Injury. 10/14/2007 5:25 AM MATTRESS STRIPPER Result [facility] Pushpa Briones MD CHEMISTRY ORDERABLES Edited Performing Organization Address [facility] Phone Number INTERFACE SYSTEM Refer to clinic/hospital department * BASIC METABOLIC PANEL (10/14/2007 5:25 AM MATTRESS STRIPPER) GLUCOSE 96 65 - 99 mg/dL INTERFACE [...] and non- Americans is available on the [facility] Intran[facility] at: [email or web address] Select: Lab Policies and Procedures Select: Reference Ranges - GFR 10/14/2007 5:25 AM MATTRESS STRIPPER Result [facility] uPshpa Briones MD CHEMISTRY ORDERABLES Edited Performing Organization Address [facility] Phone Number INTERFACE SYSTEM Refer to clinic/hospital department * (ABNORMAL) TROPONIN (W/REFLEX CKMB/CK) (10/14/2007 5:25 AM MATTRESS STRIPPER) TROPONIN T 0.57(AA) <=0.03 ng/mL INTERFACE SYSTEM Comment:Persistent abnormal result TROPONIN T INTERP See Below INTERFACE SYSTEM Comment:Elevated Troponin-T, Consistent with Myocardial Injury 10/14/2007 5:25 AM MATTRESS STRIPPER Result [facility] Pushpa Briones MD CHEMISTRY ORDERABLES Edited Performing Organization Address [facility] de Phone Number INTERFACE SYSTEM Refer to clinic/hospital department * (ABNORMAL) CK TOTAL, RELATIVE INDEX (10/13/2007 1:56 PM MATTRESS STRIPPER) CK 276(H) 10 - 170 U/L INTERFACE SYSTEM CARDIAC RELATIVE INDEX 9.9(H) <=4.0 INTERFACE SYSTEM 10/13/2007 1:56 PM MATTRESS STRIPPER Pushpa Briones MD CHEMISTRY ORDERABLES Edited Performing Organization Address [facility] de Phone Number INTERFACE SYSTEM Refer to clinic/hospital department * (ABNORMAL) CKMB W/REFLEX CK (10/13/2007 1:56 PM MATTRESS STRIPPER) CKMB 27.4(AA) <=6.7 ng/mL INTERFACE SYSTEM Comment:Persistent abnormal result CKMB INTERP See Below INTERFAC E SYSTEM Comment:Elevated CKMB,Consis tent with Myocardial Injury 10/13/2007 1:56 PM MATTRESS STRIPPER Pushpa Briones MD CHEMISTRY ORDERABLES Edited Performing Organization Address [facility] de Phone Number INTERFACE SYSTEM Refer to clinic/hospital department * (ABNORMAL) TROPONIN (W/REFLEX CKMB/CK) (10/13/2007 1:56 PM MATTRESS STRIPPER) TROPONIN T 0.66(AA) <=0.03 ng/mL INTERFACE SYSTEM Comment:Persistent abnormal result TROPONIN T INTERP See Below INTERFACE SYSTEM Comment:Elevated Troponin-T, Consistent with Myocardial Injury 10/13/2007 1:56 PM MATTRESS STRIPPER Pushpa Briones MD CHEMISTRY ORDERABLES Edited Performing Organization Address [facility] de Phone Number INTERFACE SYSTEM Refer to clinic/hospital department * (ABNORMAL) CK TOTAL, RELATIVE INDEX (10/13/2007 12:40 PM MATTRESS STRIPPER) CK 296(H) 10 - 170 U/L INTERFACE SYSTEM CARDIAC RELATIVE INDEX 9.7(H) <=4.0 INTERFACE SYSTEM 10/13/2007 12:4 0 PM MATTRESS STRIPPER us Helena Maddox MD CHEMISTRY ORDERABLES Edited Performing Organization Address [facility]/ZIP Co de Phone Number INTERFACE SYSTEM Refer to clinic/hospital department * (ABNORMAL) CKMB W/REFLEX CK (10/13/2007 12:40 PM MATTRESS STRIPPER) CKMB 28.8(AA) <=6.7 ng/mL INTERFACE SYSTEM Comment:Persistent abnormal result CKMB INTERP See Below INTERFAC E SYSTEM Comment:Elevated CKMB,Consis tent with Myocardial Injury 10/13/2007 12:4 0 PM MATTRESS STRIPPER Helena Maddox MD CHEMISTRY ORDERABLES Edited Performing Organization Address [facility] Co de Phone Number INTERFACE SYSTEM Refer to clinic/hospital department * (ABNORMAL) TROPONIN (W/REFLEX CKMB/CK) (10/13/2007 12:40 PM MATTRESS STRIPPER) TROPONIN T 0.75(AA) <=0.03 ng/mL INTERFACE SYSTEM Comment:Persistent abnormal result TROPONIN T INTERP See Below INTERFACE SYSTEM Comment:Elevated Troponin-T, Consistent with Myocardial Injury 10/13/2007 12:4 0 PM MATTRESS STRIPPER Helena Maddox MD CHEMISTRY ORDERABLES Edited Performing Organization Address [facility] de Phone Number INTERFACE SYSTEM Refer to clinic/hospital department * (ABNORMAL) CBC WITH DIFFERENTIAL (10/13/2007 11:00 AM MATTRESS STRIPPER) NEUTROPHILS 64 45 - 70 % INTERFAC [...] K/uL INTERFACE SYSTEM 10/13/2007 11:0 0 AM MATTRESS STRIPPER [email or web address] HEMATOLOGY ORDERABLES Edited INTERFACE SYSTEM Refer to clinic/hospital department * (ABNORMAL) CBC WITH DIFFERENTIAL (10/13/2007 11:00 AM MATTRESS STRIPPER) WBC 11.0(H) 4.0 - 9.8 K/uL INTERFACE [...] fL INTERFACE SYSTEM 10/13/2007 11:0 0 AM MATTRESS STRIPPER [email or web address] HEMATOLOGY ORDERABLES Edited Performing Organization Address [facility] de Phone Number INTERFACE SYSTEM Refer to clinic/hospital department * CBC WITH DIFFERENTIAL (10/13/2007 4:28 AM MATTRESS STRIPPER) NEUTROPHILS 61 45 - 70 % INTERFAC [...] 0.20 K/uL INTERFACE SYSTEM 10/13/2007 4:28 AM MATTRESS STRIPPER us Claudia Silva MD HEMATOLOGY ORDERA BLES Edited Performing Organization Address [facility] Phone Number INTERFACE SYSTEM Refer to clinic/hospital department * (ABNORMAL) CBC WITH DIFFERENTIAL (10/13/2007 4:28 AM MATTRESS STRIPPER) WBC 9.9(H) 4.0 - 9.8 K/uL INTERFACE [...] 12.4 fL INTERFACE SYSTEM 10/13/2007 4:28 AM MATTRESS STRIPPER us Claudia Silva MD HEMATOLOGY ORDERA BLES Edited Performing Organization Address [facility] Phone Number INTERFACE SYSTEM Refer to clinic/hospital department * (ABNORMAL) CK TOTAL, RELATIVE INDEX (10/13/2007 4:28 AM MATTRESS STRIPPER) CK 478(H) 10 - 170 U/L INTERFACE SYSTEM CARDIAC RELATIVE INDEX 10.7(H) <=4.0 INTERFACE SYSTEM 10/13/2007 4:28 AM MATTRESS STRIPPER us Richard Craft MD CHEMISTRY ORDERABLES Edit ed Performing Organization Address [facility] Phone Number INTERFACE SYSTEM Refer to clinic/hospital department * (ABNORMAL) CKMB W/REFLEX CK (10/13/2007 4:28 AM MATTRESS STRIPPER) CKMB 50.9(AA) <=6.7 ng/mL INTERFACE SYSTEM Comment:Persistent abnormal result CKMB INTERP See Below INTERFAC E SYSTEM Comment:Elevated CKMB,Consis tent with Myocardial Injury 10/13/2007 4:28 AM MATTRESS STRIPPER us Richard Craft MD CHEMISTRY ORDERABLES Edit ed Performing Organization Address [facility] Phone Number INTERFACE SYSTEM Refer to clinic/hospital department * PROTIME-INR (10/13/2007 4:28 AM MATTRESS STRIPPER) PROTIME 13.0 12.7 - 15.1 Seconds INTERFACE SYSTEM INR 1.0 0.9 - 1.1 INTERFACE SYSTEM Comment: INR Therapeutic Range: Adult: 2.0 - 3.0 for pulmonary embolism or prophylaxis against venous thrombosis or systemic embolization. 2.0 - 3.0 for patients with tissue heart valves. 2.5 - 3.5 for patients with mechanical heart valves or post AK. Pediatric ??(12 years and under): 1.5 - 3.0 Although the target range in children is not well established , INR values of 1.5 - 3.0 are recommended for most patients. Higher values have been used in children with prosthetic cardiac valves and hereditary clotting disorders. (<3 days) therapeutic ranges have not been established. 10/13/2007 4:28 AM MATTRESS STRIPPER us Claudia Silva MD HEMATOLOGY ORDERA BLES Edited Performing Organization Address [facility] Phone Number INTERFACE SYSTEM Refer to clinic/hospital department * PHOSPHORUS (10/13/2007 4:28 AM MATTRESS STRIPPER) PHOSPHORUS 4.3 2.5 - 4.5 mg/dL INTERFACE SYSTEM 10/13/2007 4:28 AM MATTRESS STRIPPER us Claudia Silva MD CHEMISTRY ORDERAB LES Edited Performing Organization Address [facility] de Phone Number INTERFACE SYSTEM Refer to clinic/hospital department * MAGNESIUM LEVEL (10/13/2007 4:28 AM MATTRESS STRIPPER) MAGNESIUM 2.4 1.5 - 2.5 mg/dL INTERFACE SYSTEM 10/13/2007 4:28 AM MATTRESS STRIPPER Claudia Silva MD CHEMISTRY ORDERAB LES Edited Performing Organization Address [facility] Co de Phone Number INTERFACE SYSTEM Refer to clinic/hospital department * (ABNORMAL) LIPID PANEL (10/13/2007 4:28 AM MATTRESS STRIPPER) CHOLESTEROL 217(H) 100 - 199 mg/dL INTERFACE SYSTEM TRIGLYCERIDE 203(H) 10 - 149 mg/dL INTERFACE SYSTEM HDL 33(L) 40 - 59 mg/dL INTERFACE SYSTEM CHOL/HDL RATIO 6.6(H) 2.0 - 5.0 INTER FACE SYSTEM LDL CALCULATED 143(H) <=99 mg/dL INTERFACE SYSTEM LIPID PANEL COMMENT See Below INTERFACE SYSTEM Comment: The adult ATP and pediatric NCEP classifications for lipids are available on the [facility] at: [email or web address] Select: Lab Policies and Procedures,Current Select: Lipid Panel Interpretation 10/13/2007 4:28 AM MATTRESS STRIPPER us Claudia Silva MD CHEMISTRY ORDERAB LES Edited Performing Organization Address [facility] Co de Phone Number INTERFACE SYSTEM Refer to clinic/hospital department * BASIC METABOLIC PANEL (10/13/2007 4:28 AM MATTRESS STRIPPER) GLUCOSE 98 65 - 99 mg/dL INTERFACE [...] and non- Americans is available on the [facility] at: [email or web address] Select: Lab Policies and Procedures Select: Reference Ranges - GFR 10/13/2007 4:28 AM MATTRESS STRIPPER Claudia Silva MD CHEMISTRY ORDERAB LES Edited Performing Organization Address [facility] de Phone Number INTERFACE SYSTEM Refer to clinic/hospital department * (ABNORMAL) TROPONIN (W/REFLEX CKMB/CK) (10/13/2007 4:28 AM MATTRESS STRIPPER) Pathologist [facility] TROPONIN T 1.43(AA) <=0.03 ng/mL INTERFACE SYSTEM Comment:Persistent abnormal result TROPONIN T INTERP See Below INTERFACE SYSTEM Comment:Elevated Troponin-T, Consistent with Myocardial Injury 10/13/2007 4:28 AM MATTRESS STRIPPER Richard Craft MD CHEMISTRY ORDERABLES Edit ed Performing Organization Address [facility] de Phone Number INTERFACE SYSTEM Refer to clinic/hospital department * CBC WITH DIFFERENTIAL (10/12/2007 2:10 PM MATTRESS STRIPPER) NEUTROPHILS 56 45 - 70 % INTERFAC [...] 0.20 K/uL INTERFACE SYSTEM 10/12/2007 2:10 PM MATTRESS STRIPPER [employer] HEMATOLOGY ORDERABLES Edited Performing Organization Address [facility]/State/ZIP Co de Phone Number INTERFACE SYSTEM Refer to clinic/hospital department * (ABNORMAL) CBC WITH DIFFERENTIAL (10/12/2007 2:10 PM MATTRESS STRIPPER) WBC 8.2 4.0 - 9.8 K/uL INTERFACE [...] 12.4 fL INTERFACE SYSTEM 10/12/2007 2:10 PM MATTRESS STRIPPER [employer] HEMATOLOGY ORDERABLES Edited INTERFACE SYSTEM Refer to clinic/hospital department * (ABNORMAL) PT AND APTT (10/12/2007 2:10 PM MATTRESS STRIPPER) PROTIME 13.6 12.7 - 15.1 Seconds INTERFACE SYSTEM INR 1.0 0.9 - 1.1 INTERFACE SYSTEM Comment: INR Therapeutic Range: Adult: 2.0 - 3.0 for pulmonary embolism or prophylaxis against venous thrombosis or systemic embolization. 2.0 - 3.0 for patients with tissue heart valves. 2.5 - 3.5 for patients with mechanical heart valves or post [place]. Pediatric ??(12 years and under): 1.5 - [...] range for unfractionated heparin 10/12/2007 2:10 PM MATTRESS STRIPPER [employer] HEMATOLOGY ORDERABLES Edited Performing Organization Address [facility] Phone Number INTERFACE SYSTEM Refer to clinic/hospital department * PHOSPHORUS (10/12/2007 2:10 PM MATTRESS STRIPPER) PHOSPHORUS 3.6 2.5 - 4.5 mg/dL INTERFACE SYSTEM 10/12/2007 2:10 PM MATTRESS STRIPPER [employer] CHEMISTRY ORDERABLES Edited Performing Organization Address [facility] Phone Number INTERFACE SYSTEM Refer to clinic/hospital department * MAGNESIUM LEVEL (10/12/2007 2:10 PM MATTRESS STRIPPER) MAGNESIUM 2.4 1.5 - 2.5 mg/dL INTERFACE SYSTEM 10/12/2007 2:10 PM MATTRESS STRIPPER [employer] CHEMISTRY ORDERABLES Edited Performing Organization Address [facility] Phone Number INTERFACE SYSTEM Refer to clinic/hospital department * (ABNORMAL) COMPREHENSIVE METABOLIC PANEL (10/12/2007 2:10 PM MATTRESS STRIPPER) GLUCOSE 121(H) 65 - 99 mg/dL INTERFACE [...] and non- Americans is available on the [facility] at: [email or web address] Select: Lab Policies and Procedures Select: Reference Ranges - GFR 10/12/2007 2:10 PM MATTRESS STRIPPER [employer] CHEMISTRY ORDERABLES Edited INTERFACE SYSTEM Refer to clinic/hospital department * (ABNORMAL) CK TOTAL, RELATIVE INDEX (10/12/2007 1:00 PM MATTRESS STRIPPER) CK 396(H) 10 - 170 U/L INTERFACE SYSTEM CARDIAC RELATIVE INDEX 11.0(H) <=4.0 INTERFACE SYSTEM 10/12/2007 1:00 PM MATTRESS STRIPPER Richard Craft MD CHEMISTRY ORDERABLES Edit ed INTERFACE SYSTEM Refer to clinic/hospital department * (ABNORMAL) CKMB W/REFLEX CK (10/12/2007 1:00 PM MATTRESS STRIPPER) CKMB 43.7(AA) <=6.7 ng/mL INTERFACE SYSTEM Comment:Results called to de nise at 10/12/07 2:19 PM and read back verified. CKMB INTERP See Below INTERFAC E SYSTEM Comment:Elevated CKMB,Consis tent with Myocardial Injury. 10/12/2007 1:00 PM MATTRESS STRIPPER us Richard Craft MD CHEMISTRY ORDERABLES Edit ed Performing Organization Address [facility] de Phone Number INTERFACE SYSTEM Refer to clinic/hospital department * (ABNORMAL) TROPONIN (W/REFLEX CKMB/CK) (10/12/2007 1:00 PM MATTRESS STRIPPER) TROPONIN T 0.42(AA) <=0.03 ng/mL INTERFACE SYSTEM Comment:Results called to de nise at 10/12/07 1:52 PM and read back verified. TROPONIN T INTERP See Below INTERFACE SYSTEM Comment:Elevated Troponin-T, Consistent with Myocardial Injury 10/12/2007 1:00 PM MATTRESS STRIPPER us Richard Craft MD CHEMISTRY ORDERABLES Edit ed Performing Organization Address [facility] de Phone Number INTERFACE SYSTEM Refer to clinic/hospital department documented in this encounter Visit Diagnoses Diagnosis Acute, but ill-defined, cerebrovascular disease documented in this encounter
--- OUTSIDE RECORDS SUMMARY | 2024-10-22 18:58 | XMS_ITS | Clinical Summary ---
Author Organization [facility] Address [address] [place] [address] Care Team Providers Care Coat Presser Name Role Phone Alejandro Flynn MD Primary Care Provider [phone] Richard Craft MD Unavailable [phone] Jacob Aragon MD Unavailable [phone] Addison Winchester NP Unavailable [phone] Allergies Active Allergy Reactions Criticality Noted [...] 09/28/2024 Assessment & Plan (09/28/2024 1:20 PM DATABASE TECHNICIAN): Moderate occlusive disease bilaterally. Has a appears to be what a mixed arterial venous wound to the right lower extremity following with his hand chain maker. They report it is healing. We did [...] 11/27/2022 Assessment & Plan (11/27/2022 10:41 AM DATABASE TECHNICIAN): New right heel ulceration to the right [...] (10/06/2022): Added automatically from request for surgery [id number] Venous congestion 09/29/2022 Assessment & Plan (09/29/2022 1:22 PM DATABASE TECHNICIAN): Venous congestion: Left foot discoloration associated with venous congestion as patient has been minimally ambulatory over the past couple of days secondary to postprocedure. No concern for arterial, venous etiology. Patient has palpable distal pulses, motor and sensory are intact. No further workup required. Subclavian artery stenosis (CMS/HCC) 09/10/2022 Stenosis of carotid artery 08/11/2022 Overview (08/11/2022): Added automatically from request for surgery [id number] Subclavian steal syndrome 07/28/2022 Assessment & Plan (09/28/2024 1:19 PM DATABASE TECHNICIAN): Status post left carotid subclavian bypass. Continue risk factor modification with ASA statin therapy. Follow up in 1 year with repeat duplex. Left subclavian artery occlusion 07/28/2022 Assessment & Plan (11/27/2022 10:32 AM DATABASE TECHNICIAN): Continues to recover well. Denies any symptoms his upper extremities or any dizziness with exertion. Scheduled to follow-up in December with carotid duplex. Assessment & Plan (09/29/2022 1:23 PM DATABASE TECHNICIAN): Left subclavian steal syndrome: Patient status post left carotid subclavian formed 09/10/2022. Patient doing well status post surgical intervention. Remains asymptomatic. Patient to follow-up in the office in 3 months with repeat imaging Lumbar post-laminectomy syndrome 04/17/2021 Presence of intrathecal pump 12/10/2020 Mixed hyperlipidemia 02/23/2020 Assessment & Plan (09/28/2024 1:18 PM DATABASE TECHNICIAN): Stable continue Lipitor Assessment & Plan (02/23/2020 2:54 PM CDT): Impression: Hyperlipidemia currently on pharmacotherapy. Plan: Continue ongoing statin therapy as directed by PCP. Primary osteoarthritis of left knee 08/01/2019 Chronic pain of left knee 07/26/2019 Idiopathic scoliosis and kyphoscoliosis 12/24/19 19 Overview (12/23/2018): Added automatically from request for surgery [id number] Spinal stenosis of lumbar re gion without neurogenic claudication 10/27/2018 Radiculopathy, lumbosacral region 10/27/2018 Aneurysm artery, iliac (CMS/HCC) 10/07/2018 Abdominal aortic aneurysm (AAA) without rupture 08/04/2018 Overview (08/04/2018): 06/29/2018 ultrasound measured 3.3 x 3.3 cm, CT scan measured 3.1 x 3.7 cm Assessment & Plan (09/28/2024 1:19 PM DATABASE TECHNICIAN): 4 cm AAA. 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) 08/25/2016 Encounters Date Type Department Care Team Description 10/10/2024 Telephone [facility] Scheduling [address] [place] [address] [place] Scheduling Appointments 10/09/2024 10:00 AM DATABASE TECHNICIAN - 10/09/2024 11:59 PM DATABASE TECHNICIAN Hospital Encounter [facility] [address] [place] [address] Addison Winchester NP Long-term current use of opiate analgesic (Primary Dx); Cervicalgia; Chronic bilateral low back pain without sciatica; Lumbosacral spondylosis without myelopathy; Spinal stenosis of lumbar region without neurogenic claudication; Radiculopathy, lumbosacral region; Spondylosis of lumbar region without myelopathy or radiculopathy; Thoracic spine pain; Lumbar post-laminectomy syndrome; Presence of intrathecal pump Discharge Disposition: Discharge to home or self care 09/27/2024 10:00 AM DATABASE TECHNICIAN Office Visit [facility] at [address] [place] [address] Umang Nicole MD Infrarenal abdominal aortic aneurysm (AAA) without rupture (HCC) (Primary Dx); Mixed hyperlipidemia; Subclavian steal syndrome; PVD (peripheral vascular disease) (HCC) 09/27/2024 Orders Only [facility] at [address] [place] [address] Umang Nicole MD PVD (peripheral vascular disease) (HCC) (Primary Dx); Left subclavian artery occlusion; Stenosis of right carotid artery; Subclavian steal syndrome; Infrarenal abdominal aortic aneurysm (AAA) without rupture (HCC) 09/26/2024 3:00 PM DATABASE TECHNICIAN Ancillary Procedure [facility] at [address] [place] [phone] Bilateral carotid artery stenosis 09/26/2024 2:00 PM DATABASE TECHNICIAN Ancillary Procedure [facility] at [address] [place] [phone] Infrarenal abdominal aortic aneurysm (AAA) without rupture (HCC) 09/26/2024 1:00 PM DATABASE TECHNICIAN Ancillary Procedure [facility] at [address] [place] [phone] Atherosclerotic PVD with intermittent claudication (HCC); Other specified symptoms and signs involving the circulatory and respiratory systems 09/06/2024 3:11 PM DATABASE TECHNICIAN - 09/06/2024 11:59 PM DATABASE TECHNICIAN Hospital Encounter [facility] [address] [place] [address] Addison Winchester NP Lumbar post-laminectomy syndrome (Primary Dx); Cervical spinal stenosis; Thoracic spine pain; Spondylosis without myelopathy or radiculopathy, cervicothoracic region Discharge Disposition: Discharge to home or self care 08/23/2024 2:36 PM DATABASE TECHNICIAN - 08/23/2024 11:59 PM DATABASE TECHNICIAN Hospital Encounter [facility] [address] [place] [address] Inderjit Goodman MD Thoracic spine pain; Other spondylosis, thoracic region Discharge Disposition: Discharge to home or self care 08/21/2024 Orders Only [facility] [address] [facility] [address] [place] [address] Umang Nicole MD Atherosclerotic PVD with intermittent claudication (HCC) (Primary Dx); Infrarenal abdominal aortic aneurysm (AAA) without rupture (HCC); Bilateral carotid artery stenosis; Other specified symptoms and signs involving the circulatory and respiratory systems 07/26/2024 10:17 AM DATABASE TECHNICIAN - 07/26/2024 11:59 PM DATABASE TECHNICIAN Hospital Encounter [facility] [address] [place] [address] Addison Winchester NP Spondylosis of lumbar region [...] (coronary artery disease) Chronic pain disorder Cancer ([facility]/HCC) ([facility]) 2020 skin, ear Chest pain Pt states [...] on file Legal Sex Male 1:58 AM DATABASE TECHNICIAN Gender Identity Not on file Sexual Orientation Not on file 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 Not on file Not on file 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, self-employed realtor Not on file Not on file Not on file Obstetrics History Last Filed Vital Signs Vital Sign Reading Time Taken Comments Blood Pressure 133/78 10/09/2024 10:29 AM DATABASE TECHNICIAN Pulse 66 10/09/2024 10:29 AM DATABASE TECHNICIAN Temperature 36.5 ??C (97.7 ??F) 08/23/2024 2:59 PM CS T Respiratory Rate 17 10/09/2024 10:29 AM DATABASE TECHNICIAN Oxygen Saturation 100% 10/09/2024 10:29 AM DATABASE TECHNICIAN Inhaled Oxygen Concentration - - Weight 72.6 kg (160 lb) 09/27/2024 10:14 AM DATABASE TECHNICIAN Height 182.9 cm (6') 09/27/2024 10:14 AM DATABASE TECHNICIAN Body Mass Index 21.7 09/27/2024 10:14 AM DATABASE TECHNICIAN Plan of Treatment Health Maintenance Due Date [...] history exists Medical Devices Implanted Type Area Consignee Device Identifier Shelf Expiration Date Model / Serial / Lot Stent Implanted:Qty: 3 Stent N/A: Coronary Artery Medtronic Inc 03711 Neurostimulator Implantable Chronic Pain Rs2 - [id number] - [id number] Implanted:Qty: 1 on 06/16/2018 by Inderjit Goodman MD at [facility] N/A: Back Med[employer]onic Inc 02/14/2019 15698 / [id number] / Medtronic Inc 8782 Ascenda 2 Attached Collet Spinal Segment Revision Catheter - [id number] - [id number] Implanted:Qty: 1 on 01/13/2019 by Hilario Kumar MD at [facility] Spine Lumbar Med[employer] Inc 12/22/2019 8782 / [id number] / Medtronic Inc 89762 Neurostimulator Implantable Chronic Pain Rs2 - [id number] - [id number] Implanted:Qty: 1 on 05/11/2019 by Inderjit Goodman MD at [facility] N/A: Back Med[employer]onic Inc 02/01/2020 29636 / [id number] / Medtronic Neuro 8637-20 Synchromed Ii .78in [place] Filter Mesh Pouch Programmable - [id number] - [id number] Implanted:Qty: 1 on 05/06/2021 by Inderjit Goodman MD at [facility] N/A: Abdomen Med[employer]onic Inc 10/17/2022 8637-20 / [id number] / [employer] 8mm 40cm Stretch Peripheral Thin Wall Graft Vascular [place] [id number] - [id number] - [id number] Implanted:Qty: 1 on 09/10/2022 by Jacob Aragon MD at [facility] Left: Subclavian Artery [employer] [id number] 03/17/2027 [id number] / [id number] / Nuvasive Inc Screw Spine Reline C Lock Open Non-Sterile Latex Free [id number] - [id number] Implanted:Qty: 8 on 02/01/2023 by Domingo Srinivasan MD at [facility] N/A: Spine Cervical [employer] Inc [id number] / / Nuvasive Inc Andreas Spine Reline C Ti Prebent 4.0x70mm Latex Free [id number] - [id number] Implanted:Qty: 2 on 02/01/2023 by Domingo Srinivasan MD at [facility] N/A: Spine Cervical [employer]uv[employer] Inc [id number] / / Nuvasive Reline C 5.0x35mm Red Screw Implanted:Qty: 2 on 02/01/2023 by Domingo Srinivasan MD at [facility] N/A: Spine Cervical [employer] Inc [id number] / N/A / Abyrx Hemasorb Os-Spa Spatula Wax 2gm Bone Sterile Os-201 - [id number] Implanted:Qty: 1 on 02/01/2023 by Domingo Srinivasan MD at [facility] N/A: Spine Thoracic Abyrx [id number] 02/17/2025 OS-201 / / [id number] [employer] Graft Bone Magnetos 10cc 1-2mm Granules In Moldable Putty [id number]-[id number] - Sn/A - [id number] Implanted:Qty: 1 on 02/01/2023 by Domingo Srinivasan MD at [facility] N/A: Spine Cervical [employer] [id number] 12/19/2024 703-038- US / N/A / [id number] Nuvasive Inc Screw Spine Reline C Ma 3.5x16mm Non-Sterile Latex Free [id number] - [id number] Implanted:Qty: 6 on 02/01/2023 by Domingo Srinivasan MD at [facility] N/A: Spine Cervical Nuv[employer] Inc [id number] / / Explanted Type Area Consignee Device Identifier Shelf Expiration Date Model / Serial / Lot Spinal Cord Stimulator Generator Explanted:Qty: 1 on 05/11/2019 by Inderjit Goodman MD at [facility] N/A: Back Medtronic 13294 / / Procedures Procedure Name Priority Date/Time Associated Diagnosis Comments US CAROTIDS DUPLEX BILATERAL Schedule Routine, Read Routine (OP Routine) 09/26/2024 2:37 PM DATABASE TECHNICIAN Bilateral carotid artery stenosis US DUPLEX SCAN AORTA, IVC ILIAC COMPLETE Schedule Routine, Read Routine (OP Routine) 09/26/2024 2:37 PM DATABASE TECHNICIAN Infrarenal abdominal aortic aneurysm (AAA) without rupture (HCC) US ARTERIAL DOPPLER LOWER EXTREMITY BILATERAL Schedule Routine, Read Routine (OP Routine) 09/26/2024 2:37 PM DATABASE TECHNICIAN Atherosclerotic PVD with intermittent claudication (HCC) Other specified symptoms and signs involving the circulatory and respiratory systems PAIN MGMT IMAGING CERVICAL/THORACIC FACET/MEDIAL BRANCH BLOCK BILATERAL Schedule Routine, Read Routine (OP Routine) 08/23/2024 3:32 PM DATABASE TECHNICIAN Thoracic spine pain Other spondylosis, thoracic region CTA ABDOMEN PELVIS W WO CONTRAST Routine 08/23/2015 12:00 AM DATABASE TECHNICIAN from Last 3 Months or Most Recently Relevant to Health Maintenance Results * US Carotids Duplex Bilateral (09/26/2024 2:37 PM DATABASE TECHNICIAN) LV EF % CONS SCIMAGE Anatomical Region Laterality Modality Vascular Bilateral Ultrasound 09/26/2024 1:04 PM DATABASE TECHNICIAN Narrative 09/27/2024 10:23 AM DATABASE TECHNICIAN Vascular & Vein Surgery [address] [place] [address]. [place] [address] Carotid Duplex Ultrasound Report Patient Name: ELZA SCHERER W : 1945 (79y 2m) Study Date: 09/26/2024 1:04:36 PM Gender: M Excel Specialist: Location: [facility] Ref Provider: UMANG NICOLE ?Quality: [...] above. Electronically Signed By: Umang Nicole MD [facility] 09/27/2024 10:22:59 AM DATABASE TECHNICIAN Procedure Note Umang Nicole MD - 09/27/2024 Vascular & Vein Surgery [address] [place] [address] Carotid Duplex Ultrasound Report Patient Name: ELZA SCHERERRosalva : 1945 (79y 2m) Study Date: 09/26/2024 1:04:36 PM Gender: M Excel Specialist: LUIS E Location: [facility] Ref Provider: UMANG [...] By: MD IMELDA Gastelum 09/27/2024 10:22:59 AM DATABASE TECHNICIAN Umang Nicole MD IMG US PROCEDURES Final Result * US Duplex Scan Aorta, IVC Iliac Complete (09/26/2024 2:37 PM DATABASE TECHNICIAN) LV EF % CONS SCIMAGE Anatomical Region Laterality Modality Vascular N/A Ultrasound 09/26/2024 1:36 PM DATABASE TECHNICIAN Narrative 09/27/2024 10:22 AM DATABASE TECHNICIAN Vascular & Vein Surgery [address] [place] [address]. [place] [address] Abdominal Aortic Duplex Ultrasound Report Patient Name: ELZA SCHERER W : 1945 Study Date: 09/26/2024 1:36:32 PM Gender: M Excel Specialist: Location: [facility] Ref Provider: UMANG NICOLE ?Quality: [...] above. Electronically Signed By: Umang Nicole MD [facility] 09/27/2024 10:21:44 AM DATABASE TECHNICIAN Procedure Note Umang Nicole MD - 09/27/2024 Vascular & Vein Surgery [address] [place] [address]. [place] [address] Abdominal Aortic Duplex Ultrasound Report Patient Name: ELZA SCHERER W : 1945 Study Date: 09/26/2024 1:36:32 PM Gender: M Excel Specialist: Location: [facility] Ref Provider: UMANG NICOLE Quality: [...] above. Electronically Signed By: Umang Nicole MD [facility] 09/27/2024 10:21:44 AM DATABASE TECHNICIAN us Umang Nicole MD IMG US PROCEDURES Final Result * US Arterial Doppler Lower Extremity Bilateral (09/26/2024 2:37 PM DATABASE TECHNICIAN) LV EF % CONS SCIMAGE Anatomical Region Laterality Modality Vascular Bilateral Ultrasound 09/26/2024 12:5 2 PM DATABASE TECHNICIAN Narrative 09/27/2024 10:20 AM DATABASE TECHNICIAN Vascular & Vein Surgery [address] [place] [address] Lower Extremity Arterial Doppler Report Patient Name: ELZA SCHERER W : 1945 Study Date: 09/26/2024 12:52:00 PM Gender: M Excel Specialist: Ember Bazzi RVT Location: [facility] Ref Provider: UMANG NICOLE ?Quality: Adequate Order Provider: UMANG NICOLE ?? PROCEDURES: Arterial Report: Bilateral lower extremity arterial Doppler exam at rest. ?? INDICATIONS: I70.219 Atherosclerosis of [place] arteries of extremities with intermittent claudication, unspecified [...] ?Lt Calf Pressure ? 128 mmHg Rt PLATFORM CONSULTANT Pressure ?106 mmHg ?Lt PLATFORM CONSULTANT Pressure ?108 mmHg Rt DPA Pressure ?122 [...] By: MD IMELDA Gastelum 09/27/2024 10:20:20 AM DATABASE TECHNICIAN Procedure Note Umang Nicole MD - 09/27/2024 Vascular & Vein Surgery [address] [place] [address]. [place] [address] Lower Extremity Arterial Doppler Report Patient Name: ELZA SCHERER W : 1945 Study Date: 09/26/2024 12:52:00 PM Gender: M Excel Specialist: Ember Bazzi RVMarlys Location: [facility] Ref Provider: UMANG NICOLE Quality: Adequate Order Provider: UMANG NICOLE PROCEDURES: Arterial Report: Bilateral lower extremity arterial Doppler exam at rest. INDICATIONS: I70.219 Atherosclerosis of [place] arteries of extremities withintermittent claudication, unspecified extremity [...] mmHg Lt Calf Pressure 128 mmHg Rt PLATFORM CONSULTANT Pressure 106 mmHg Lt PLATFORM CONSULTANT Pressure 108 mmHg Rt DPA Pressure 122 [...] above. Electronically Signed By: Umang Nicole MD [facility] 09/27/2024 10:20:20 AM DATABASE TECHNICIAN Umang Nicole MD IMG US PROCEDURES Final Result * Imaging Cervical/Thoracic Facet Medial Branch Block Bilateral ([id number]) (08/23/2024 3:32 PM DATABASE TECHNICIAN) Narrative [facility] - 08/23/2024 3:33 PM DATABASE TECHNICIAN The images from this study are not interpreted by Radiology. ??Please refer to the physician's procedure / OR operative note. Addison Winchester NP IMG PAIN MGMT PROCEDURES Janis l Result [facility] * CTA Abdomen Pelvis (08/23/2015 12:00 AM DATABASE TECHNICIAN) Anatomical Region Laterality Modality Body N/A Computed Tomogra phy 08/23/2015 Narrative 08/24/2015 2:36 PM DATABASE TECHNICIAN PROCEDURE: ??CTA ABDOMEN PELVIS WITHOUT AND WITH [...] Caceres M.D. JA:kellie 08:39 AM 09:18 AM [facility] [[facility]] Procedure Note Provider, MD Radames [...] M.D. Bethany Fried:kellie 08:39 AM 09:18 AM [facility] [[facility]] Kali Hurd MD [facility] CT PROCEDURES Final Re sult from Last 3 Months or Most Recently Relevant to Health Maintenance Insurance MEDICARE SOLUTIONS [facility] MEDICARE MEDICARE [facility] MEDICARE SOLUTIONS MEDICARE [employer] [facility] Advance Directives For more information, please contact: [phone] Documents on File Type Date Recorded Patient Radio Communications Superintendent Expl anation ADVANCE DIRECTIVE 02/01/2023 5:39 AM Power of Home Health Clinical Liaison-Medical * Full Code (Latest Code Status on File) Date Activated Date Inactivated Comments 09/10/2022 2:23 PM 09/12/2022 7:46 PM * Full Code Date Activated Date Inactivated Comments 05/22/2021 10:58 AM 05/23/2021 4:51 AM * Full Code Date Activated Date Inactivated Comments 01/13/2019 7:44 PM 01/15/2019 6:40 PM * Full Code Date Activated Date Inactivated Comments 12/15/2018 1:24 PM 12/16/2018 4:52 AM Care Teams Coat Presser Relationship Specialty Start Date End Date Alejandro Flynn MD [address] [facility] [address] [place] [address] [address] [place] [address] PCP - General Internal Medicine 07/09/22 Richard Craft MD [address] [facility] [address] [place] [address] Consulting Physician Cardiology 09/07/22 Jcaob Aragon MD [address] [address] Consulting Physician Vascular Surgery 09/12/22 [place] [address] [place] [address] Nurse Practitioner Pain Management 09/06/24
--- OUTSIDE RECORDS SUMMARY | 2024-10-22 18:58 | XMS_ITS | Continuity of Care Document ---
Author Organization [facility] [place] [address] [place] [address] [address] [place] [address] Phone Care Team Providers Care Direct Entry Midwife Name Role Phone [facility] Unavailable Unavail able Germania Núñez Unavailable Unavailable Procedures Procedure Date Anti-reflective Coating Eye Exam & Treatment Refraction Advance Directives Directive Yes / No Effective Date File Name No Information Encounters Encounter Description Practice Location Reason(s) For Visit Diagnoses Date Provider Providers Copied on Encounter [facility], [address] [place] [address] [address], [place], [place], [id number], tel:[phone] [facility] No Information 8 [facility] [employer] . [address] [facility] [address], [facility] [address], [place], [id number], [place]. tel:[phone] Consulting Provider: Germania Núñez, [address] [place] [address], [facility]. tel:[phone] [facility], [address] [place] [address] [address], [place], [place], [id number], tel:[phone] [facility] No Information 8 [employer]. [address] , [address], [place], [address], [place]. tel:[phone] Family History Family Member Type Diagnosis Age At Onset No Information Payers Payer name Insurance type Covered alliance party ID Authoriza tion(s) No Information Social [...]
--- OUTSIDE RECORDS SUMMARY | 2024-10-22 18:58 | XMS_ITS | Encounter Summary ---
Author Organization [facility] Address [address] [facility] [place] [address] Care Team Providers Care Pens And Pencils Repairer Name Role Phone Pepper Encarnacion MD Primary Care Provider [phone] Alejandro Flynn MD Primary Care Provider [phone] Spencer Hoyos Unavailable Unavailable Encounter Details Date Type Department Care Team (Late st Contact Info) Description 10/09/2024 Lab Requisition [facility] - Pathology Lab [address] [place] [address] Joseph Lee MD [address] [address] Illness, unspecified Social History Tobacco [...] Cytology Routine Illness, unspecified 10/09/2024 2:08 PM POWER GENERATION PLANT OPERATOR documented as of this encounter Visit Diagnoses Diagnosis Illness, unspecified documented in this encounter Care Teams Pens And Pencils Repairer Relationship Specialty Start Date End Date Pepper Encarnacion MD [address] [place] [address] PCP - General 05/30/18 10/15/24 Alejandro Flynn MD [address] [place] [address] PCP - General Internal Medicine 10/16/24 Spencer Hoyos [address] [address] Referring Physician 10/16/24 documented as of this encounter
--- OUTSIDE RECORDS SUMMARY | 2024-10-22 18:58 | XMS_ITS | Referral Summary ---
Author Organization [facility] Address [address] [place] [address] Care Team Providers Care Field Interviewer Name Role Phone Alejandro Flynn MD Primary Care Provider [phone] Richard Craft MD Unavailable [phone] Jacob Aragon MD Unavailable [phone] Addison Winchester NP Unavailable [phone] Encounters Date Type Department Care Team Description 10/10/2024 Telephone [facility] Scheduling [address] [place] [address] [place] Scheduling Appointments 10/09/2024 10:00 AM TERMITE CONTROL REPRESENTATIVE - 10/09/2024 11:59 PM TERMITE CONTROL REPRESENTATIVE Hospital Encounter [facility] [address] [place] [address] Addison Winchester NP Long-term current use of opiate analgesic (Primary Dx); Cervicalgia; Chronic bilateral low back pain without sciatica; Lumbosacral spondylosis without myelopathy; Spinal stenosis of lumbar region without neurogenic claudication; Radiculopathy, lumbosacral region; Spondylosis of lumbar region without myelopathy or radiculopathy; Thoracic spine pain; Lumbar post-laminectomy syndrome; Presence of intrathecal pump Discharge Disposition: Discharge to home or self care 09/27/2024 Orders Only [facility] Vascular at [address] [place] [phone] Umang Nicole MD PVD (peripheral vascular disease) (HCC) (Primary Dx); Left subclavian artery occlusion; Stenosis of right carotid artery; Subclavian steal syndrome; Infrarenal abdominal aortic aneurysm (AAA) without rupture (HCC) 09/27/2024 10:00 AM TERMITE CONTROL REPRESENTATIVE Office Visit [facility] Vascular at [address] [place] [phone] Umang Nicole MD Infrarenal abdominal aortic aneurysm (AAA) without rupture (HCC) (Primary Dx); Mixed hyperlipidemia; Subclavian steal syndrome; PVD (peripheral vascular disease) (HCC) 09/26/2024 3:00 PM TERMITE CONTROL REPRESENTATIVE Ancillary Procedure [facility] Vascular and Vein Surgery at [address] [place] [phone] Bilateral carotid artery stenosis 09/26/2024 2:00 PM TERMITE CONTROL REPRESENTATIVE Ancillary Procedure [facility] Vascular and Vein Surgery at [address] [place] [phone] Infrarenal abdominal aortic aneurysm (AAA) without rupture (HCC) 09/26/2024 1:00 PM TERMITE CONTROL REPRESENTATIVE Ancillary Procedure [facility] Vascular and Vein Surgery at [address] [place] [phone] Atherosclerotic PVD with intermittent claudication (HCC); Other specified symptoms and signs involving the circulatory and respiratory systems 09/06/2024 3:11 PM TERMITE CONTROL REPRESENTATIVE - 09/06/2024 11:59 PM TERMITE CONTROL REPRESENTATIVE Hospital Encounter [facility] [address] [place] [address] Addison Winchester NP Lumbar post-laminectomy syndrome (Primary Dx); Cervical spinal stenosis; Thoracic spine pain; Spondylosis without myelopathy or radiculopathy, cervicothoracic region Discharge Disposition: Discharge to home or self care 08/23/2024 2:36 PM TERMITE CONTROL REPRESENTATIVE - 08/23/2024 11:59 PM TERMITE CONTROL REPRESENTATIVE Hospital Encounter [facility] [address] [place] [phone] Inderjit Goodman MD Thoracic spine pain; Other spondylosis, thoracic region Discharge Disposition: Discharge to home or self care 08/21/2024 Orders Only [facility] Medical Group Vascular and Vein Surgery [address] [facility] [address] [place] [phone] Umang Nicole MD Atherosclerotic PVD with intermittent claudication (HCC) (Primary Dx); Infrarenal abdominal aortic aneurysm (AAA) without rupture (HCC); Bilateral carotid artery stenosis; Other specified symptoms and signs involving the circulatory and respiratory systems 07/26/2024 10:17 AM TERMITE CONTROL REPRESENTATIVE - 07/26/2024 11:59 PM TERMITE CONTROL REPRESENTATIVE Hospital Encounter [facility] [address] [place] [address] Addison Winchester NP Spondylosis of lumbar region [...] 09/28/2024 Assessment & Plan (09/28/2024 1:20 PM TERMITE CONTROL REPRESENTATIVE): Moderate occlusive disease bilaterally. Has a appears to be what a mixed arterial venous wound to the right lower extremity following with his lodging manager. They report it is healing. We did [...] 11/27/2022 Assessment & Plan (11/27/2022 10:41 AM TERMITE CONTROL REPRESENTATIVE): New right heel ulceration to the right [...] (10/06/2022): Added automatically from request for surgery [id number] Venous congestion 09/29/2022 Assessment & Plan (09/29/2022 1:22 PM TERMITE CONTROL REPRESENTATIVE): Venous congestion: Left foot discoloration associated with venous congestion as patient has been minimally ambulatory over the past couple of days secondary to postprocedure. No concern for arterial, venous etiology. Patient has palpable distal pulses, motor and sensory are intact. No further workup required. Subclavian artery stenosis (CMS/HCC) 09/10/2022 Stenosis of carotid artery 08/11/2022 Overview (08/11/2022): Added automatically from request for surgery [id number] Subclavian steal syndrome 07/28/2022 Assessment & Plan (09/28/2024 1:19 PM TERMITE CONTROL REPRESENTATIVE): Status post left carotid subclavian bypass. Continue risk factor modification with ASA statin therapy. Follow up in 1 year with repeat duplex. Left subclavian artery occlusion 07/28/2022 Assessment & Plan (11/27/2022 10:32 AM TERMITE CONTROL REPRESENTATIVE): Continues to recover well. Denies any symptoms his upper extremities or any dizziness with exertion. Scheduled to follow-up in December with carotid duplex. Assessment & Plan (09/29/2022 1:23 PM TERMITE CONTROL REPRESENTATIVE): Left subclavian steal syndrome: Patient status post left carotid subclavian formed 09/10/2022. Patient doing well status post surgical intervention. Remains asymptomatic. Patient to follow-up in the office in 3 months with repeat imaging Lumbar post-laminectomy syndrome 04/17/2021 Presence of intrathecal pump 12/10/2020 Mixed hyperlipidemia 02/23/2020 Assessment & Plan (09/28/2024 1:18 PM TERMITE CONTROL REPRESENTATIVE): Stable continue Lipitor Assessment & Plan (02/23/2020 2:54 PM CDT): Impression: Hyperlipidemia currently on pharmacotherapy. Plan: Continue ongoing statin therapy as directed by PCP. Primary osteoarthritis of left knee 08/01/2019 Chronic pain of left knee 07/26/2019 Idiopathic scoliosis and kyphoscoliosis 12/24/19 19 Overview (12/23/2018): Added automatically from request for surgery [id number] Spinal stenosis of lumbar re gion without neurogenic claudication 10/27/2018 Radiculopathy, lumbosacral region 10/27/2018 Aneurysm artery, iliac (CMS/HCC) 10/07/2018 Abdominal aortic aneurysm (AAA) without rupture 08/04/2018 Overview (08/04/2018): 06/29/2018 ultrasound measured 3.3 x 3.3 cm, CT scan measured 3.1 x 3.7 cm Assessment & Plan (09/28/2024 1:19 PM TERMITE CONTROL REPRESENTATIVE): 4 cm AAA. 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, self-employed realtor Not on file Not on file Not on file Last Filed Vital Signs Vital Sign Reading Time Taken Comments Blood Pressure 133/78 10/09/2024 10:29 AM TERMITE CONTROL REPRESENTATIVE Pulse 66 10/09/2024 10:29 AM TERMITE CONTROL REPRESENTATIVE Temperature 36.5 ??C (97.7 ??F) 08/23/2024 2:59 PM CS T Respiratory Rate 17 10/09/2024 10:29 AM TERMITE CONTROL REPRESENTATIVE Oxygen Saturation 100% 10/09/2024 10:29 AM TERMITE CONTROL REPRESENTATIVE Inhaled Oxygen Concentration - - Weight 72.6 kg (160 lb) 09/27/2024 10:14 AM TERMITE CONTROL REPRESENTATIVE Height 182.9 cm (6') 09/27/2024 10:14 AM TERMITE CONTROL REPRESENTATIVE Body Mass Index 21.7 09/27/2024 10:14 AM TERMITE CONTROL REPRESENTATIVE Plan of Treatment Not on file Medical Devices Implanted Type Area Air Export Coordinator Device Identifier Shelf Expiration Date Model / Serial / Lot Stent Implanted:Qty: 3 Stent N/A: Coronary Artery [employer] Inc 27696 Neurostimulator Implantable Chronic Pain Rs2 - [id number] - [id number] Implanted:Qty: 1 on 06/16/2018 by Inderjit Goodman MD at [facility] N/A: Back Med[employer] Inc 02/14/2019 16706 / [id number] / Medtronic Inc 8782 Ascenda 2 Attached Collet Spinal Segment Revision Catheter - [id number] - [id number] Implanted:Qty: 1 on 01/13/2019 by Hilario Kumar MD at [facility] Spine Lumbar Med[employer] Inc 12/22/2019 8782 / [id number] / Medtronic Inc 50473 Neurostimulator Implantable Chronic Pain Rs2 - [id number] - [id number] Implanted:Qty: 1 on 05/11/2019 by Inderjit Goodman MD at [facility] N/A: Back Med[employer] Inc 02/01/2020 20509 / [id number] / Medtronic Neuro 8637-20 Synchromed Ii .78in [place] Filter Mesh Pouch Programmable - [id number] - [id number] Implanted:Qty: 1 on 05/06/2021 by Inderjit Goodman MD at [facility] N/A: Abdomen Med[employer] Inc 10/17/2022 8637-20 / [id number] / Wl [employer] 8mm 40cm Stretch Peripheral Thin Wall Graft Vascular [place] Tb1433 - [id number] - [id number] Implanted:Qty: 1 on 09/10/2022 by Jacob Aragon MD at [facility] Left: Subclavian Artery Wl [employer] [id number] 03/17/2027 [id number] / [id number] / Nuvasive Inc Screw Spine Reline C Lock Open Non-Sterile Latex Free [id number] - [id number] Implanted:Qty: 8 on 02/01/2023 by Domingo Srinivasan MD at [facility] N/A: Spine Cervical [employer] Inc [id number] / / Nuvasive Inc Andreas Spine Reline C Ti Prebent 4.0x70mm Latex Free [id number] - [id number] Implanted:Qty: 2 on 02/01/2023 by Domingo Srinivasan MD at [facility] N/A: Spine Cervical [employer] Inc [id number] / / Nuvasive Reline C 5.0x35mm Red Screw Implanted:Qty: 2 on 02/01/2023 by Domingo Srinivasan MD at [facility] N/A: Spine Cervical [employer] Inc [id number] / N/A / Abyrx Hemasorb Os-Spa Spatula Wax 2gm Bone Sterile Os-201 - [id number] Implanted:Qty: 1 on 02/01/2023 by Domingo Srinivasan MD at [facility] N/A: Spine Thoracic Abyrx [id number] 02/17/2025 OS-201 / / [id number] [employer] Graft Bone Magnetos 10cc 1-2mm Granules In Moldable Putty [id number] - Sn/A - [id number] Implanted:Qty: 1 on 02/01/2023 by Domingo Srinivasan MD at [facility] N/A: Spine Cervical [employer] [id number] 12/19/2024 703-038- US / N/A / [id number] Nuvasive Inc Screw Spine Reline C Ma 3.5x16mm Non-Sterile Latex Free [id number] - [id number] Implanted:Qty: 6 on 02/01/2023 by Domingo Srinivasan MD at [facility] N/A: Spine Cervical [employer] Inc [id number] / / Explanted Type Area Air Export Coordinator Device Identifier Shelf Expiration Date Model / Serial / Lot Spinal Cord Stimulator Generator Explanted:Qty: 1 on 05/11/2019 by Inderjit Goodman MD at [facility] N/A: Back Medtronic [id number] / / Procedures Procedure Name Priority Date/Time Associated Diagnosis Comments US CAROTIDS DUPLEX BILATERAL Schedule Routine, Read Routine (OP Routine) 09/26/2024 2:37 PM TERMITE CONTROL REPRESENTATIVE Bilateral carotid artery stenosis US DUPLEX SCAN AORTA, IVC ILIAC COMPLETE Schedule Routine, Read Routine (OP Routine) 09/26/2024 2:37 PM TERMITE CONTROL REPRESENTATIVE Infrarenal abdominal aortic aneurysm (AAA) without rupture (HCC) US ARTERIAL DOPPLER LOWER EXTREMITY BILATERAL Schedule Routine, Read Routine (OP Routine) 09/26/2024 2:37 PM TERMITE CONTROL REPRESENTATIVE Atherosclerotic PVD with intermittent claudication (HCC) Other specified symptoms and signs involving the circulatory and respiratory systems PAIN MGMT IMAGING CERVICAL/THORACIC FACET/MEDIAL BRANCH BLOCK BILATERAL Schedule Routine, Read Routine (OP Routine) 08/23/2024 3:32 PM TERMITE CONTROL REPRESENTATIVE Thoracic spine pain Other spondylosis, thoracic region CTA ABDOMEN PELVIS W WO CONTRAST Routine 08/23/2015 12:00 AM TERMITE CONTROL REPRESENTATIVE from Last 3 Months or Most Recently Relevant to Health Maintenance Results * US Carotids Duplex Bilateral (09/26/2024 2:37 PM TERMITE CONTROL REPRESENTATIVE) LV EF % CONS SCIMAGE Anatomical Region Laterality Modality Vascular Bilateral Ultrasound 09/26/2024 1:04 PM TERMITE CONTROL REPRESENTATIVE Narrative 09/27/2024 10:23 AM TERMITE CONTROL REPRESENTATIVE Vascular & Vein Surgery [address] [place] [address] Carotid Duplex Ultrasound Report Patient Name: ELZA SCHERER W : 1945 (79y 2m) Study Date: 09/26/2024 1:04:36 PM Gender: M Pipelines Laborer: LUIS E Location: [facility] Ref Provider: UMANG [...] Umang Nicole MD B 09/27/2024 10:22:59 AM TERMITE CONTROL REPRESENTATIVE Procedure Note Umang Nicole MD - 09/27/2024 Vascular & Vein Surgery [address] [place] [address] Carotid Duplex Ultrasound Report Patient Name: ELZA SCHERER W : 1945 (79y 2m) Study Date: 09/26/2024 1:04:36 PM Gender: M Pipelines Laborer: Location: LOCATED WITHIN [facility] Ref Provider: UMANG NICOLE Quality: Adequate Order [...] above. Electronically Signed By: Umang Nicole MD [facility] 09/27/2024 10:22:59 AM TERMITE CONTROL REPRESENTATIVE Umang Nicole MD [facility] US PROCEDURES Final Result * US Duplex Scan Aorta, IVC Iliac Complete (09/26/2024 2:37 PM TERMITE CONTROL REPRESENTATIVE) LV EF % CONS SCIMAGE Anatomical Region Laterality Modality Vascular N/A Ultrasound 09/26/2024 1:36 PM TERMITE CONTROL REPRESENTATIVE Narrative 09/27/2024 10:22 AM TERMITE CONTROL REPRESENTATIVE Vascular & Vein Surgery [facility] [place] [address] Abdominal Aortic Duplex Ultrasound Report Patient Name: ELZA SCHERERRosalva : 1945 Study Date: 09/26/2024 1:36:32 PM Gender: M Pipelines Laborer: Location: [facility] Ref Provider: UMANG NICOLE ?Quality: [...] that is provided above. Electronically Signed By: mUang Nicole MD [facility] 09/27/2024 10:21:44 AM TERMITE CONTROL REPRESENTATIVE Procedure Note Umang Nicole MD - 09/27/2024 Vascular & Vein Surgery [address] [place] [address]. [place] [address] Abdominal Aortic Duplex Ultrasound Report Patient Name: ELZA SCHERER W : 1945 Study Date: 09/26/2024 1:36:32 PM Gender: M Pipelines Laborer: Location: [facility] Ref Provider: UMANG NICOLE Quality: Adequate Order [...] Umang Nicole MD B 09/27/2024 10:21:44 AM TERMITE CONTROL REPRESENTATIVE us Umang Nicole MD IM US PROCEDURES Final Result * US Arterial Doppler Lower Extremity Bilateral (09/26/2024 2:37 PM TERMITE CONTROL REPRESENTATIVE) LV EF % CONS SCIMAGE Anatomical Region Laterality Modality Vascular Bilateral Ultrasound 09/26/2024 12:5 2 PM TERMITE CONTROL REPRESENTATIVE Narrative 09/27/2024 10:20 AM TERMITE CONTROL REPRESENTATIVE Vascular & Vein Surgery [address] [place] [address] Lower Extremity Arterial Doppler Report Patient Name: ELZA SCHERER W : 1945 Study Date: 09/26/2024 12:52:00 PM Gender: M Pipelines Laborer: Ebmer Bazzi RVMarlys Location: [facility] Ref Provider: UMANG NICOLE ?Quality: Adequate Order Provider: UMANG NICOLE ?? PROCEDURES: Arterial Report: Bilateral lower extremity arterial Doppler exam at rest. ?? INDICATIONS: I70.219 Atherosclerosis of [place] arteries of extremities with intermittent claudication, unspecified [...] ?Lt Calf Pressure ? 128 mmHg Rt LABOR/EXCAVATOR Pressure ?106 mmHg ?Lt LABOR/EXCAVATOR Pressure ?108 mmHg Rt DPA Pressure ?122 [...] above. Electronically Signed By: Umang Nicole MD [facility] 09/27/2024 10:20:20 AM TERMITE CONTROL REPRESENTATIVE Procedure Note Umang Nicole MD - 09/27/2024 Vascular & Vein Surgery [address] [place] [address] Lower Extremity Arterial Doppler Report Patient Name: ELZA SCHERER W : 1945 Study Date: 09/26/2024 12:52:00 PM Gender: M Pipelines Laborer: Ember Bazzi RVT Location: [facility] Ref Provider: UMANG NICOLE Quality: Adequate Order Provider: MUANG NICOLE PROCEDURES: Arterial Report: Bilateral lower extremity arterial Doppler exam at rest. INDICATIONS: I70.219 Atherosclerosis of [place] arteries of extremities withintermittent claudication, unspecified extremity [...] mmHg Lt Calf Pressure 128 mmHg Rt LABOR/EXCAVATOR Pressure 106 mmHg Lt LABOR/EXCAVATOR Pressure 108 mmHg Rt DPA Pressure 122 [...] above. Electronically Signed By: Umang Nicole MD [facility] 09/27/2024 10:20:20 AM TERMITE CONTROL REPRESENTATIVE us Umang Nicole MD IMG US PROCEDURES Final Result * Imaging Cervical/Thoracic Facet Medial Branch Block Bilateral (01375) (08/23/2024 3:32 PM TERMITE CONTROL REPRESENTATIVE) Narrative RAD_PACS_CH - 08/23/2024 3:33 PM TERMITE CONTROL REPRESENTATIVE The images from this study are not interpreted by Radiology. ??Please refer to the physician's procedure / OR operative note. Addison Winchester NP IM PAIN MGMT PROCEDURES Janis l Result RAD_PACS_CH * CTA Abdomen Pelvis (08/23/2015 12:00 AM TERMITE CONTROL REPRESENTATIVE) Anatomical Region Laterality Modality Body N/A Computed Tomogra phy 08/23/2015 Narrative 08/24/2015 2:36 PM TERMITE CONTROL REPRESENTATIVE PROCEDURE: ??CTA ABDOMEN PELVIS WITHOUT AND WITH [...] Caceres M.D. JA:[email or web address] 08:39 AM 09:18 AM [facility] [[facility]] Procedure Note Provider, MD Radames - [...] Caceres M.D. JA:[email or web address] 08:39 AM 09:18 AM [facility] [[facility]] Kali Hurd MD IMG CT PROCEDURES Final Re sult from Last 3 Months or Most Recently Relevant to Health Maintenance Insurance MEDICARE SOLUTIONS [facility] MEDICARE MEDICARE [facility] MEDICARE SOLUTIONS MEDICARE [facility] Advance Directives For more information, please contact: [phone] Documents on File Type Date Recorded Patient Cashier Or Checker Stock Clerk Expl anation ADVANCE DIRECTIVE 02/01/2023 5:39 AM Power of Viscosity Inspector-Medical * Full Code (Latest Code Status on File) Date Activated Date Inactivated Comments 09/10/2022 2:23 PM 09/12/2022 7:46 PM * Full Code Date Activated Date Inactivated Comments 05/22/2021 10:58 AM 05/23/2021 4:51 AM * Full Code Date Activated Date Inactivated Comments 01/13/2019 7:44 PM 01/15/2019 6:40 PM * Full Code Date Activated Date Inactivated Comments 12/15/2018 1:24 PM 12/16/2018 4:52 AM Care Teams Field Interviewer Relationship Specialty Start Date End Date Alejandro Flynn MD [address] [place] [address] PCP - General Internal Medicine 07/09/22 Richard Craft MD [address] [place] [address] Consulting Physician Cardiology 09/07/22 Jacob Aragon MD [address] [facility] [address] [place] [address] Consulting Physician Vascular Surgery 09/12/22 [place] [address] [facility] [address] [place] [address] Nurse Practitioner Pain Management 09/06/24
--- OUTSIDE RECORDS SUMMARY | 2024-10-22 18:59 | XMS_ITS | Clinical Summary ---
Author Organization [facility] [employer] Address [address] [place] [address] Care Team Providers Care Boarder Hand Name Role Phone Alejandro Flynn MD Primary Care Provider [phone] Spencer Hoyos Unavailable Unavailable Source Comments [facility],non-owned Affiliates and Associated Physician Practices is amultiple site organization consisting of ambulatory clinics and hospital sitesin [place], [place], [place] and [place]. This disclosure is being madepursuant to the Care Everywhere program and may not contain all information available regarding this patient. Last updated 18.[facility] [employer] Allergies No known active allergies Medications * [...] Orders Only [facility] - [facility] [address] [place] [phone] Vitaly Goodson MD Malignant neoplasm of lower third of esophagus (HCC) ; Esophagitis 10/19/2024 Telephone [facility] - GI [address] [place] [phone] Rubi Medellin RN General 10/18/2024 11:01 AM DENTAL INTERN Anesthesia Event [facility] [address] [place] [phone] Sujata Benson MD 10/18/2024 11:00 AM DENTAL INTERN - 10/18/2024 12:00 PM DENTAL INTERN Surgery [facility] [address] [place] [phone] Vitaly Goodson MD EUS + Stent 10/18/2024 9:54 AM DENTAL INTERN - 10/18/2024 2:17 PM DENTAL INTERN Hospital Encounter [facility] [address] [place] [address] Vitaly Goodson MD Surgery General Discharge Disposition: Home or Self Care 10/18/2024 Orders Only [facility] - GI [address] [facility], [place] [phone] Vitaly Goodson MD Other chest pain 10/18/2024 Travel 10/16/2024 Telephone [facility] - GI [address] [facility], [place] [phone] Moo Willett RN Procedure (external referral: EGD + Stent for dysphagia with Dr. Sellers from Dr. Spencer Hoyos f: [phone]) 10/09/2024 Lab Requisition [facility] - Pathology Lab [address] [place] [phone] Joseph Lee MD Illness, unspecified from Last [...] Comments Blood Pressure 148/69 10/18/2024 1:30 PM DENTAL INTERN Pulse 65 10/18/2024 1:30 PM DENTAL INTERN Temperature 36 ??C (96.8 ??F) 10/18/2024 12:50 PM DENTAL INTERN Respiratory Rate 10 10/18/2024 1:30 PM DENTAL INTERN Oxygen Saturation 99% 10/18/2024 1:30 PM DENTAL INTERN Inhaled Oxygen Concentration - - Weight 63 kg (139 lb) 10/18/2024 10:31 AM DENTAL INTERN Height 182.9 cm (6') 10/18/2024 10:31 AM DENTAL INTERN Body Mass Index 18.85 10/18/2024 10:31 AM DENTAL INTERN Plan of Treatment Health Maintenance Due Date [...] this topic Medical Devices Implanted Type Area Metalsmith Helper Device Identifier Shelf Expiration Date Model / Serial / Lot Esophageal Tts Stent 22mm X 150mm Implanted:Qty: 1 on 10/18/2024 by Vitaly Goodson MD at [facility] N/A: Esophagus 03/28/2026 [id number] / [id number] / [id number] Description:[employer] Esophageal Stent 22mm x 150mm Procedures Procedure Name Priority Date/Time Associated Diagnosis Comments ENDOTRACHEAL TUBE NOTE Routine 10/18/2024 11:14 AM DENTAL INTERN [place] ENDOSCOPIC ULTRASOUND EXAM 10/18/2024 10:56 AM DENTAL INTERN Dysphagia, unspecified type CBC W/O DIFFERENTIAL Routine 10/18/2024 10:41 AM DENTAL INTERN Pre-op exam BASIC METABOLIC PANEL (CALCIUM TOTAL) Routine 10/18/2024 10:41 AM DENTAL INTERN Pre-op evaluation ENDOSCOPIC ULTRASONOGRAPHY, GI Routine 10/18/2024 10:31 AM DENTAL INTERN EKG 12-LEAD Routine 10/18/2024 10:19 AM DENTAL INTERN Pre-op evaluation from Last 3 Months Results * ETT LINE PERFORMABLE (10/18/2024 11:14 AM DENTAL INTERN) Narrative Sapna Ojeda APRN-CRNA - 10/18/2024 11:14 AM DENTAL INTERN Sapna Ojeda APRN-CRNA ? 10/18/2024 11:16 AM Endotracheal Tube Placement: ? Intubation Event Date/Time: ??10/18/2024 11:08 AM Procedure: intubation (45625) Procedure Section: ?? Sedation: under general anesthesia. [...] (ABNORMAL) CBC W/O DIFFERENTIAL (10/18/2024 10:41 AM [facility]) [facility] WBC 7.4 4.0 - 10.7 x10E9/L 10/18/2024 10:57 AM [facility] RBC Count 3.86(L) 4.30 - 5.80 x10E12/L 10/18/2024 10:[address] [facility] Hemoglobin 12.0(L) 13.3 - 17.5 g/dL 10/18/2024 10:[address] [facility] Hematocrit 36.0(L) 38.7 - 51.1 % 10/18/2024 10:[address] [facility] MCV 93.3 80.0 - 98.0 fL 10/18/2024 10:[address] [facility] MCH 31.1 26.7 - 33.6 pg 10/18/2024 10:[address] [facility] MCHC 33.3 31.7 - 36.3 g/dL 10/18/2024 10:[address] [facility] RDW-CV 12.2 11.3 - 14.8 % 10/18/2024 10:[address] [facility] Platelet Count 290 150 - 420 x10E9/L 10/18/2024 10:[address] [facility] MPV 9.7 7.8 - 11.4 fL 10/18/2024 10:[address] [facility] Blood BLOOD SPECIMEN / Unknown Venipuncture / Unknown 10/18/2024 10:41 AM [facility] 10/18/2024 10:48 AM [facility] Sujata Benson MD LAB - HEMATOLOGY ORD ERABLES [facility] [address] [place] [address] [phone] * (ABNORMAL) BASIC METABOLIC PANEL (CALCIUM TOTAL) (10/18/2024 10:41 AM [facility]) BUN 23 7 - 26 mg/dL 10/18/2024 11:[address] [facility] Creatinine 0.81 0.71 - 1.16 mg/dL 10/18/2024 11:[address] [facility] Sodium 138 136 - 145 mmol/L 10/18/2024 11:[address] [facility] Potassium 3.7 3.5 - 4.5 mmol/L 10/18/2024 11:[address] [facility] Chloride 102 98 - 107 mmol/L 10/18/2024 11:[address] [facility] CO2 26 22 - 29 mmol/L 10/18/2024 11:[address] [facility] Glucose 93 70 - 99 mg/dL 10/18/2024 11:[address] [facility] Calcium 9.6 8.4 - 10.2 mg/dL 10/18/2024 11:[address] [facility] Anion Gap 10 6 - 16 10/18/2024 11:[address] [facility] BUN/Creatinine Ratio 28(H) 7 - 23 10/18/2024 11:[address] [facility] Osmolality Calculated 289 275 - 295 mOsm/kg 10/18/2024 11:[address] [facility] eGFR by CKD-EPI 90 >=90 mL/min/1.7 3 m2 10/18/2024 11:[address] 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 A large ? circumferential nearly [...] in place via the use of an carz-ylh-ceywx ? 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 Endosonographic staging consistent with at ?least T3N1Mx disease (exam limited by inability to ?pass the echoendoscope through the area of ?narrowing). ?- One 22 mm x 150 mm esophageal fully covered metal ?stent (Taewoon) placed across the area of ?narrowing, and proximally anchored via use of an ?ueis-ljn-mrvqz clip (StentFix, [employer]ES[employer] MR ?conditional). Moderate Sedation: [...] Procedure Code(s): ? --- Professional --- ? 51054, Esophagoscopy, flexible, transoral; with placement of endoscopic ? stent (includes pre- and post-dilation and guide wire passage, when ? performed) ? 45497, Esophagoscopy, flexible, transoral; with endoscopic ultrasound ? examination ? 94487, 59, Fluoroscopy (separate procedure), up to 1 hour physician or ? other qualified health child care attendant time Diagnosis Code(s): ?--- Professional --- ?K22.89, Other specified disease of esophagus ?C15.9, Malignant neoplasm of esophagus, unspecified ?R13.10, Dysphagia, unspecified CPT copyright 2021 [employer]. All rights reserved. The codes documented in this report are preliminary and upon public health dentist review may be revised to meet current compliance requirements. Vitaly Guillory MD 10/18/2024 12:24:47 PM Note Initiated On: 10/18/2024 10:31 AM Number of Addenda: 0 ? [facility] ? [address] [place] [address] [facility] 10/18/2024 10:3 1 AM DENTAL INTERN Vitaly Guillory MD GI PROCEDURE ORDERABLES Performing Organization Address City/State/[facility] Co de Phone Number [facility] from Last 3 Months Care Teams Boarder Hand Relationship Specialty Start Date End Date Alejandro Flynn MD [address] [place] [phone] PCP - General Internal Medicine 10/16/24 Spencer Hoyos [address] [phone] Referring Physician 10/16/24
--- OUTSIDE RECORDS SUMMARY | 2024-10-22 18:59 | XMS_ITS | Referral Summary ---
Author Organization [facility] Address [address] [place] [address] Care Team Providers Care Cognos Consultant Name Role Phone Alejandro Flynn MD Primary Care Provider [phone] Spencer Hoyos Unavailable Unavailable Source Comments [facility],non-owned Affiliates and Associated Physician Practices is amultiple site organization consisting of ambulatory clinics and hospital sitesin [place], [place], [place] and [place]. This disclosure is being madepursuant to the Care Everywhere program and may not contain all information available regarding this patient. Last updated 18.[facility] Encounters Date Type Department Care Team Description 10/19/2024 Orders Only [facility] - GI [address] [place] [phone] Vitaly Goodson MD Malignant neoplasm of lower third of esophagus (HCC) ; Esophagitis 10/19/2024 Telephone [facility] - GI [address] [place] [phone] Rubi Medellin RN General 10/18/2024 Orders Only [facility] - GI [address] [place] [phone] Vitaly Goodson MD Other chest pain 10/18/2024 Travel 10/18/2024 11:01 AM FINAL FINISHER FORGING DIES Anesthesia Event [facility] [address] [place] [phone] Sujata Benson MD 10/18/2024 11:00 AM FINAL FINISHER FORGING DIES - 10/18/2024 12:00 PM [facility] Surgery [facility] [address] [place] [address] Vitaly Goodson MD EUS + Stent 10/18/2024 9:54 AM FINAL FINISHER FORGING DIES - 10/18/2024 2:17 PM [facility] Hospital Encounter [facility] [address] [place] [address] Vitaly Goodson MD Surgery General Discharge Disposition: Home or Self Care 10/16/2024 Telephone [facility] - GI [address] [facility] [place] [address] Moo Willett RN Procedure (external referral: EGD + Stent for dysphagia with Dr. Sellers from Dr. Spencer Hoyos f: [phone]) 10/09/2024 Lab Requisition [facility] - Pathology Lab [address] [place] [address] Joseph Lee MD Illness, unspecified from Last [...] Comments Blood Pressure 148/69 10/18/2024 1:30 PM FINAL FINISHER FORGING DIES Pulse 65 10/18/2024 1:30 PM FINAL FINISHER FORGING DIES Temperature 36 ??C (96.8 ??F) 10/18/2024 12:50 PM FINAL FINISHER FORGING DIES Respiratory Rate 10 10/18/2024 1:30 PM FINAL FINISHER FORGING DIES Oxygen Saturation 99% 10/18/2024 1:30 PM FINAL FINISHER FORGING DIES Inhaled Oxygen Concentration - - Weight 63 kg (139 lb) 10/18/2024 10:31 AM FINAL FINISHER FORGING DIES Height 182.9 cm (6') 10/18/2024 10:31 AM FINAL FINISHER FORGING DIES Body Mass Index 18.85 10/18/2024 10:31 AM FINAL FINISHER FORGING DIES Functional Status Functional Status Response Date of [...] on file Medical Devices Implanted Type Area Automatic Hemmer Device Identifier Shelf Expiration Date Model / Serial / Lot Esophageal Tts Stent 22mm X 150mm Implanted:Qty: 1 on 10/18/2024 by Vitaly Goodson MD at [facility] N/A: Esophagus 03/28/2026 [id number] / [id number] / [id number] Description:[employer] Esophageal Stent 22mm x 150mm Procedures Procedure Name Priority Date/Time Associated Diagnosis Comments ENDOTRACHEAL TUBE NOTE Routine 10/18/2024 11:14 AM FINAL FINISHER FORGING DIES [place] ENDOSCOPIC ULTRASOUND EXAM 10/18/2024 10:56 AM FINAL FINISHER FORGING DIES Dysphagia, unspecified type CBC W/O DIFFERENTIAL Routine 10/18/2024 10:41 AM FINAL FINISHER FORGING DIES Pre-op exam BASIC METABOLIC PANEL (CALCIUM TOTAL) Routine 10/18/2024 10:41 AM FINAL FINISHER FORGING DIES Pre-op evaluation ENDOSCOPIC ULTRASONOGRAPHY, GI Routine 10/18/2024 10:31 AM FINAL FINISHER FORGING DIES EKG 12-LEAD Routine 10/18/2024 10:19 AM FINAL FINISHER FORGING DIES Pre-op evaluation from Last 3 Months Results * ETT LINE PERFORMABLE (10/18/2024 11:14 AM FINAL FINISHER FORGING DIES) Narrative Sapna Ojeda APRN-CRNA - 10/18/2024 11:14 AM FINAL FINISHER FORGING DIES Sapna Ojeda APRN-CRNA ? 10/18/2024 11:16 AM Endotracheal Tube Placement: ? Intubation Event Date/Time: ??10/18/2024 11:08 AM Procedure: intubation (33755) Procedure Section: ?? Sedation: under general anesthesia. [...] Staff Section ? Anesthesia Provider: Sapna Ojeda APRN-STOCK ANALYST, Performed the procedure Sujata Benson MD GENERAL ANESTHESIA O RDERABLES * (ABNORMAL) CBC W/O DIFFERENTIAL (10/18/2024 10:41 AM [facility]) WBC 7.4 4.0 - 10.7 x10E9/L 10/18/2024 10:[address] [facility] RBC Count 3.86(L) 4.30 - [...] Unknown Venipuncture / Unknown 10/18/2024 10:41 AM FINAL FINISHER FORGING DIES 10/18/2024 10:48 AM [facility] Sujata Benson MD LAB - HEMATOLOGY ORD ERABLES Performing Organization Address City/[facility]/ZIP Co de Phone Number [facility] [address] [place] [address] [phone] * (ABNORMAL) BASIC METABOLIC PANEL (CALCIUM TOTAL) (10/18/2024 10:41 AM FINAL FINISHER FORGING DIES) BUN 23 7 - 26 mg/dL 10/18/2024 [...] Unknown Venipuncture / Unknown 10/18/2024 10:41 AM FINAL FINISHER FORGING DIES 10/18/2024 10:48 AM FINAL FINISHER FORGING DIES Sujata Benson MD LAB - CHEMISTRY HARMAN WILLAMS Performing Organization Address City/State/ZIP Ct de Phone Number [address] [address], [facility] [phone] * Endoscopic Ultrasonography, GI (10/18/2024 10:31 AM FINAL FINISHER FORGING DIES) Report Endoscopy POC Endoscopy Department Report _ [...] 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 A large ? circumferential nearly [...] in place via the use of an smox-qam-gdpvw ? clip (StentFix, [employer]) to reduce the risk of migration. 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 Endosonographic staging consistent with at ?least T3N1Mx disease (exam limited by inability to ?pass the echoendoscope through the area of ?narrowing). ?- One 22 mm x 150 mm esophageal fully covered metal ?stent (Taewoon) placed across the area of ?narrowing, and proximally anchored via use of an ?csbm-wwx-gkrap clip (StentFix, OVESCO MR ?conditional). Moderate Sedation: [...] Procedure Code(s): ? --- Professional --- ? 74248, Esophagoscopy, flexible, transoral; with placement of endoscopic ? stent (includes pre- and post-dilation and guide wire passage, when ? performed) ? 29637, Esophagoscopy, flexible, transoral; with endoscopic ultrasound ? examination ? 51883, 59, Fluoroscopy (separate procedure), up to 1 hour physician or ? other qualified health director of primary care time Diagnosis Code(s): ?--- Professional --- ?K22.89, Other specified disease of esophagus ?C15.9, Malignant neoplasm of esophagus, unspecified ?R13.10, Dysphagia, unspecified CPT copyright 2021 [employer]. All rights reserved. The codes documented in this report are preliminary and upon groundman/lineman review may be revised to meet current compliance requirements. Vitaly Guillory MD 10/18/2024 12:24:47 PM Note Initiated On: 10/18/2024 10:31 AM Number of Addenda: 0 ? [facility] ? [address] [place] [address] [facility] 10/18/2024 10:3 1 AM FINAL FINISHER FORGING DIES Vitaly Guillory MD GI PROCEDURE ORDERABLES Performing Organization Address City/State/[facility] Co de Phone Number [facility] from Last 3 Months Care Teams Cognos Consultant Relationship Specialty Start Date End Date Alejandro Flynn MD [address] [place] [address] PCP - General Internal Medicine 10/16/24 Spencer Hoyos [address] [place] [phone] Referring Physician 10/16/24
[2024-10-22 19:03] LABS: Lactic Acid Reflex 2.3 mmol/L (0.7-2.0)
[2024-10-22 19:12] LABS: Add Urine Microscopic? YES; Appearance Urine Clear (Clear); Bacteria Urine 4+ /hpf; Bilirubin Urine Negative (Negative); Blood Urine Negative (Negative); Color Urine Yellow (Yellow); Glucose Urine UA Negative (Negative); Ketones Urine Trace mg/dL (Negative); Leukocyte Esterase Ur 2+ LEU/UL (Negative); Need Manual Microscopic Reviewed; Nitrate Urine Negative (Negative); Non Pathogenic Casts 0-2; Protein Urine Trace mg/dL (Negative); RBC Urine 0-2 /hpf (0-2); Specific Grav Ur 1.014 (1.001-1.035); Squamous Epithelial Cell Urine None Seen /hpf (Few); Urobilinogen Urine 0.2 mg/dL (<2.0); pH Urine 5.5 (5.0-9.0)
[2024-10-22 21:04] VITALS: BP 114/60; PULSE 73; RESP 19; O2SAT 99
[2024-10-22 21:50] LABS: Reflex Lactic Acid Yes or No Add Lactic
[2024-10-22 22:25] LABS: Lactic Acid 2.2 mmol/L (0.7-2.0)
[2024-10-23 00:13] VITALS: BP 108/56; PULSE 88; RESP 15; O2SAT 99
[2024-10-23 01:07] VITALS: BP 99/55; PULSE 90; RESP 17; TEMP 37.1; O2SAT 99
--- NOTE | 2024-10-23 01:30 | ADMGEN ---
This patient, Gregory Scherer, was admitted to 3 [facility] Surg Room 322-02. Patient/family oriented to hospital policies and general routines including ID bracelet, bed and alarms, visiting hours, pain management, procedures, bathroom and other care routines, personal items, smoking policy, room service/diet, and visiting hours. Information on how to activate the Rapid Response Team has been discussed. Patient/Family are encouraged to report perceived risks to care and to ask questions if they do not understand what they are told or what they should do.
[2024-10-23 01:31] VITALS: BMI 18.5
[2024-10-23] MEDS: SODIUM CHLORIDE 0.9% IV 1,000 ML 100 ML IV CONT ×2 (01:52→18:42)
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
--- NOTE | 2024-10-23 02:09 | PC.NURSE ---
RN left a message for patient's spouse, Dianna Scherer, to confirm PMH as recalled/confirmed with patient and to obtain home medication list. [employer] Forming Machine Helper notified that home med list is unable to be completed at present time. RN will update when information is available.
[2024-10-23] MEDS: FAMOTIDINE 20 MG/2 ML VIAL IV PUSH ×3 (02:19→21:38)
[2024-10-23 05:14] VITALS: BP 114/54; PULSE 76; RESP 17; TEMP 36.5; O2SAT 99
[2024-10-23] MEDS: SUCRALFATE SUSP 100 MG/ML 10 ML UDC 1000 MG PO ×4 (05:29→21:38)
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
[2024-10-23 14:00] VITALS: BP 127/64; PULSE 76; RESP 17; TEMP 37.4; O2SAT 100
--- NOTE | 2024-10-23 15:50 | P.PNCROSS_ITS ---
Event Note Event Note Event Note: Interval history: This is a 79-year-old male with a significant past medical history metastatic adeno carcinoma of the esophagus, chronic UTI, dementia, hyperlipidemia, GERD who presented to the hospital today with complaints of generalized weakness and increased confusion. Workup in the hospital included a chest x-ray which shown unchanged mild bibasilar chronic interstitial lung disease, no acute cardiopulmonary disease. Chest /abdomen/ pelvis CT shown gastroesophageal stent in position, multiple areas of decreased attenuation within the liver with suspicion for metastatic disease, findings consistent with patient's known esophageal cancer with a patent gastroesophageal stent, persistent infrarenal abdominal aortic aneurysm unchanged in size, 4.2 cm, redemonstration of a left common iliac artery aneurysm also unchanged in size of [address] was negative for any acute intracranial hemorrhage/mass /infarct, atrophy and chronic white matter changes were all present. Initial labs showed a white blood cell count of 32.6, sodium 136, chloride 97, lactic acid 2.3> 2.2, calcium 10.4, AST 87, ALT 53, alkaline phos 145, total CK 213. UA was obtained and showed trace ketones, 2+ leukocytes, 11-20 urine WBC, 4+ urine bacteria. Respiratory panel was negative for influenza a and B, RSV, COVID. Blood and urine cultures were obtained and pending. Review of Past urine cultures showed E coli with some resistance to fluoroquinolones, gentamicin, Bactrim, Augmentin, Unasyn however has been sensitive to Rocephin. Patient was given 2 L of normal saline, Protonix, Rocephin while in the ED. He was started on IV fluids for hydration. Subjective: Patient denies any fever, chills, nausea, vomiting, diarrhea, abdominal pain, chest pain, shortness a breath. Labs and imaging reviewed. Exam: General: In no acute distress, well nourished Head: atraumatic, no encephalopathy Eyes: PERRLA, sclera clear ENT: moist mucous membranes, nasal passages clear Neck: supple, no JVD, no adenopathy, trachea midline Cardiac: Normal S1 and S2. No murmur, gallops or friction rubs, peripheral pulses intact. Respiratory: Lungs clear to auscultation, no adventitious lung sounds, currently on room air Gastrointestinal: soft, non-distended, non-tender, normoactive bowel sounds. : voiding without difficulty. Extremities: moves all extremities well, no edema Skin: clean, dry, intact. No wounds or lesions. Neuro: Alert and oriented x2, cranial nerves intact, no neuro deficits. Psych: normal mood, normal affect, interactive Plan: * continue Rocephin for UTI * white blood cell count 32.6, lactic acid 2.3>2.2, calcium 10.4, liver enzymes elevated- AST 87, ALT 53, alk-phos 145, total CK 213 * urine culture and blood cultures obtained and pending * respiratory panel was negative * GI consulted * oncology consulted * continue neuro checks * PT and OT ordered * medication reconciliation address * continue IV fluids
[2024-10-23 16:11] LABS: Basophils Absolute Auto 0.1 K/mm3 (0.0-0.1); Basophils Percent Auto 0.3 % (0.2-1.2); Eosinophils Absolute Auto 0.1 K/mm3 (0-0.3); Eosinophils Percent Auto 0.6 % (0-4.4); Hematocrit 35.3 % (42.0-52.0); Hemoglobin 11.4 g/dL (14.0-18.0); Immature Granulocyte Absolute 0.16 K/mm3 (0.00-0.031); Immature Granulocyte Percent A 0.7 % (0-0.5); Lymphocytes Absolute Auto 1.66 K/mm3 (0.9-3.2); Lymphocytes Percent Auto 7.4 % (18.3-44.2); Mean Corpuscular HGB Conc 32.3 g/dl (32-36); Mean Corpuscular Hemoglobin 31.2 pg (26-34); Mean Corpuscular Volume 96.7 fl (80-100); Mean Platelet Volume 9.7 fl (7.4-10.4); Monocytes Absolute Auto 1.8 K/mm3 (0.1-0.6); Neutrophils Absolute Auto 18.6 K/mm3 (1.3-6.7); Platelet Count Result 252 k/mm3 (150-375); Red Blood Count 3.65 M/mm3 (4.6-6.20); Red Cell Distribution Width 12.6 % (11.5-14.5); White Blood Count 22.4 K/mm3 (4.5-10.0)
[2024-10-23 16:20] LABS: Alanine Aminotransferase 63 U/L (6-50); Albumin Level 3.3 g/dL (3.5-5.1); Alkaline Phosphatase 123 U/L (38-126); Anion Gap 7 mmol/L (4-12); Aspartate Amino Transferase 98 U/L (17-59); Bilirubin,Total 0.5 mg/dL (0.2-1.3); Blood Urea Nitrogen 25 mg/dL (9-20); Calcium 9.1 mg/dL (8.4-10.2); Carbon Dioxide 27 mmol/L (22-30); Chloride 101 mmol/L (98-107); Estimated CRCL calculation 57 ml/min; Estimated Glomerular Filt Rate > 60; Glucose 103 mg/dL (65-110); Potassium 3.5 mmol/L (3.4-5.0); Sodium 135 mmol/L (137-145)
[2024-10-23] MEDS: PANTOPRAZOLE 40 MG TABLET PO (17:53)
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
[2024-10-23 19:20] LABS: Iron 33 ug/dL (49-181)
[2024-10-23 19:30] LABS: Percent Iron Saturation 16 % (20-50)
[2024-10-23 20:30] LABS: Folic Acid 3.8 ng/mL (2.76->20); Vitamin B12 > 1000.0 pg/mL (239-931)
[2024-10-23 21:30] VITALS: BP 132/63; PULSE 66; RESP 16; TEMP 36.2; O2SAT 100
[2024-10-23] MEDS: MIRTAZAPINE 30 MG TABLET PO (21:45)
[2024-10-23] MEDS: TRIMETHOPRIM 100 MG TABLET PO (21:45)
[2024-10-24 05:45] VITALS: BP 134/60; PULSE 59; RESP 16; TEMP 36.4; O2SAT 97
[2024-10-24 06:17] LABS: Basophils Absolute Auto 0.1 K/mm3 (0.0-0.1); Basophils Percent Auto 0.4 % (0.2-1.2); Eosinophils Absolute Auto 0.2 K/mm3 (0-0.3); Eosinophils Percent Auto 1.5 % (0-4.4); Hematocrit 33.9 % (42.0-52.0); Hemoglobin 10.8 g/dL (14.0-18.0); Immature Granulocyte Absolute 0.07 K/mm3 (0.00-0.031); Immature Granulocyte Percent A 0.5 % (0-0.5); Lymphocytes Absolute Auto 1.89 K/mm3 (0.9-3.2); Lymphocytes Percent Auto 12.2 % (18.3-44.2); Mean Corpuscular HGB Conc 31.9 g/dl (32-36); Mean Corpuscular Hemoglobin 31.2 pg (26-34); Mean Platelet Volume 10.6 fl (7.4-10.4); Monocytes Absolute Auto 1.7 K/mm3 (0.1-0.6); Monocytes Percent Auto 10.7 % (2.6-8.5); Neutrophils Absolute Auto 11.6 K/mm3 (1.3-6.7); Neutrophils Percent Auto 74.7 % (45.5-73.1); Platelet Count Result 197 k/mm3 (150-375); Red Blood Count 3.46 M/mm3 (4.6-6.20); Red Cell Distribution Width 12.3 % (11.5-14.5); White Blood Count 15.5 K/mm3 (4.5-10.0)
[2024-10-24 06:24] LABS: Alanine Aminotransferase 57 U/L (6-50); Albumin Level 2.8 g/dL (3.5-5.1); Alkaline Phosphatase 109 U/L (38-126); Anion Gap 4 mmol/L (4-12); Aspartate Amino Transferase 71 U/L (17-59); Bilirubin,Total 0.5 mg/dL (0.2-1.3); Blood Urea Nitrogen 22 mg/dL (9-20); Calcium 8.7 mg/dL (8.4-10.2); Carbon Dioxide 27 mmol/L (22-30); Chloride 104 mmol/L (98-107); Creatine Kinase 108 U/L (55-170); Estimated CRCL calculation 68 ml/min; Estimated Glomerular Filt Rate > 60; Glucose 88 mg/dL (65-110); Potassium 3.3 mmol/L (3.4-5.0); Sodium 135 mmol/L (137-145)
[2024-10-24] MEDS: SODIUM CHLORIDE 0.9% IV 1,000 ML 100 ML IV CONT ×2 (06:53→21:45)
--- NOTE | 2024-10-24 07:48 | P.PNGI_ITS ---
Progress Note: A&P Assessment and Plan (1) Primary adenocarcinoma of esophagus with metastasis: Code(s): C15.9 - Malignant neoplasm of esophagus, unspecified Status: Acute Assessment and Plan: The patient presents with advanced esophageal carcinoma with metastatic disease. A recent esophageal stent placement has been performed. As previously discussed, post-stent placement regurgitation is an expected occurrence. To manage this, the patient should be prescribed double-dose PPIs orally. Dietary modifications are crucial: small, frequent meals are recommended; the patient should avoid lying down immediately after eating; bedtime snacks should be strictly avoided; the last meal should be consumed at least three hours before bedtime; and elevating the head of the bed during sleep is strongly recommended. the patient can be discharged home with all these recommendations. Time Spent With Patient Time with patient: less than 15 minutes Subjective Date/time seen: 10/24/24 07:48 Interval history: the patient feels much better, did not have further reflux episodes after Simple general anti-reflux measures have been implemented. Exam Narrative: unchanged from previous. Objective Data Vital Signs Vital Signs: Vital Signs - 24 hr 10/23/24 14:00 10/23/24 15:10 10/23/24 21:30 Temperature 99.3 F 97.2 F L Pulse Rate 76 66 Respiratory Rate 17 16 Blood Pressure 127/64 132/63 Pulse Oximetry 100 100 Oxygen Delivery Room Air 10/24/24 05:45 Temperature 97.6 F Pulse Rate 59 L Respiratory Rate 16 Blood Pressure 134/60 Pulse Oximetry 97 Oxygen Delivery Intake/Output Intake/Output: Intake & Output 10/21/24 10/22/24 10/23/24 10/24/24 23:59 23:59 23:59 23:59 Intake Total 2049 1649 1600 Balance 2049 165 1600 Meds/Results Medications: Active Medications Generic Name Dose Route Start Last Admin Trade Name Freq PRN Reason Stop Dose Admin Acetaminophen 650 mg 10/22/24 23:59 Acetaminophen 325 Mg Tablet PO Q4H PRN Mild Pain (1-3) or Fever Hydrocodone Bitart/Acetaminophen 1 tab 10/23/24 15:47 Hydrocodone/Acetaminophen (*Crx) 10-325 Mg Tablet PO Q8H PRN Pain 4-6 Aspirin 81 mg 10/24/24 09:00 Aspirin 81 Mg Enteric Tablet PO [facility] Atorvastatin Calcium 20 mg 10/24/24 09:00 Atorvastatin 20 Mg Tablet PO DAILY [facility] Cyanocobalamin 1,000 mcg 10/24/24 09:00 Cyanocobalamin 1,000 Mcg Tablet PO DAILY [facility] Dextrose 12.5 gm 10/23/24 00:04 Dextrose 50% 25 Gm/50 Ml Syringe IV PUSH PRN PRN Hypoglycemia Protocol Famotidine 20 mg 10/23/24 02:05 10/23/24 21:38 Famotidine 20 Mg/2 Ml Vial IV PUSH 20 mg Q12HR SH[facility]AR Administration Glucagon 1 mg 10/23/24 00:04 Glucagon For Inj 1 Mg Vial IM PRN PRN Hypoglycemia Protocol Glucose 15 gm 10/23/24 00:04 Glucose Oral Gel 15 Gm Of Glucse In 37.5 Gm Tube PO PRN PRN Hypoglycemia Protocol Ceftriaxone Sodium 1 gm in 50 mls @ 100 mls/hr 10/23/24 21:00 10/23/24 21:39 Rocephin 1 Gm/Ns 50 Ml IVPB 100 mls/hr Q24H SH[facility] Administration Sodium Chloride 1,000 mls @ 100 mls/hr 10/22/24 22:30 10/24/24 06:53 Normal Saline Iv IV CONT 100 mls/hr .Q10H [facility] Administration Dextrose 1,000 mls @ 100 mls/hr 10/23/24 00:04 Dextrose 5% 1,000 Ml IVPB PRN PRN Hypoglycemia Protocol Lidocaine 1 patch 10/23/24 15:47 Lidocaine 5% Patch TRANSDERM DAILY PRN Pain Loratadine 10 mg 10/23/24 15:59 Loratadine 10 Mg Tablet PO DAILY PRN Allergy Symptoms Mirtazapine 30 mg 10/23/24 21:00 10/23/24 21:45 Mirtazapine 30 Mg Tablet PO 30 mg HS [facility] Administration Miscellaneous Information 1 each 10/23/24 00:01 Naproxen Prn Pain . Vague Order. Has 3 Pain Meds Prn Currently That Cover The 1-10 Pain S XX 11/22/24 00:00 [facility] Miscellaneous Information 1 each 10/23/24 00:01 Gemtesa Is Nonformulary. Can He Use Home Supply? XX 11/22/24 00:00 [facility] Morphine Sulfate 2 mg 10/22/24 23:59 Morphine Sulfate (*Crx) 2 Mg/Ml Inj IV PUSH Q2H PRN Pain Rated 7-10 Naproxen 375 mg 10/23/24 15:47 Naproxen 375 Mg Tablet PO BID PRN pain Non-Formulary Medication 75 mg 10/23/24 21:00 Vibegron [Gemtesa] PO 11/22/24 20:59 [facility] Ondansetron HCl 4 mg 10/22/24 23:59 Ondansetron Inj 4 Mg/2 Ml Vial IV PUSH Q4H PRN Nausea Pantoprazole Sodium 40 mg 10/23/24 17:00 10/23/24 17:53 Pantoprazole 40 Mg Tablet PO 40 mg BID [facility] Administration Senna 17.2 mg 10/24/24 09:00 Sennosides 8.6 Mg Tablet PO DAILY [facility] Sucralfate 1,000 mg 10/23/24 06:30 10/23/24 21:38 Sucralfate Susp 100 Mg/Ml 10 Ml Udc PO 1,000 mg ACHS SH[facility] Administration Trimethoprim 100 mg 10/23/24 21:00 10/23/24 21:45 Trimethoprim 100 Mg Tablet PO 100 mg [facility] Administration Vitamin D 2,000 units 10/24/24 09:00 Cholecalciferol 1,000 Units Tablet PO DAILY [facility] Radiology Results: ITS Impressions Chest X-Ray 10/22/24 17:36 IMPRESSION: 1. Unchanged mild bibasilar chronic interstitial lung disease. No acute cardiopulmonary disease. Chest/Abdomen/Pelvis CT 10/22/24 20:07 IMPRESSION: Gastroesophageal stent in position. Innumerable areas of decreased attenuation within the liver, for which metastatic disease is suspected. Findings consistent with patient's known esophageal cancer with a patent gastroesophageal stent. Persistent infrarenal abdominal aortic aneurysm, unchanged in size. 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 Head CT 10/23/24 05:35 Impression: No intracranial hemorrhage, mass, or acute infarct. Atrophy and chronic white matter changes, as above. Labs Labs: Laboratory Results - last 24 hr 10/23/24 10/24/24 16:01 05:54 WBC 22.4 H 15.5 H RBC 3.65 L 3.46 L Hgb 11.4 L D 10.8 L Hct 35.3 L 33.9 L MCV 96.7 98.0 MCH 31.2 31.2 MCHC 32.3 31.9 L RDW 12.6 12.3 Plt Count 252 197 MPV 9.7 10.6 H Immature Gran % (Auto) 0.7 H 0.5 Neut % (Auto) 83.0 H 74.7 H Lymph % (Auto) 7.4 L 12.2 L Lipscomb % (Auto) 8.0 10.7 H Eos % (Auto) 0.6 1.5 Baso % (Auto) 0.3 0.4 Lymph # (Auto) 1.66 1.89 Lipscomb # (Auto) 1.8 H 1.7 H Eos # (Auto) 0.1 0.2 Baso # (Auto) 0.1 0.1 Abs Immat Gran (auto) 0.16 H 0.07 H Absolute Neuts (auto) 18.6 H 11.6 H Absolute Nucleated RBC 0.000 0.000 Nucleated RBC % 0.0 0.0 Sodium 135 L 135 L Potassium 3.5 3.3 L Chloride 101 104 Carbon Dioxide 27 27 Anion Gap 7 4 BUN 25 H 22 H Creatinine 0.81 0.67 L Estim Creat Clear Calc 57 68 Estimated GFR > 60 > 60 Glucose 103 88 Calcium 9.1 8.7 Iron 33 L TIBC 208 L % Saturation 16 L Ferritin 48.50 Total Bilirubin 0.5 0.5 AST 98 H 71 H ALT 63 H 57 H Alkaline Phosphatase 123 109 Total Creatine Kinase 108 Total Protein 6.0 L 6.0 L Albumin 3.3 L 2.8 L Vitamin B12 > 1000.0 H Folate 3.8
[2024-10-24] MEDS: ASPIRIN 81 MG ENTERIC TABLET PO (08:39)
[2024-10-24] MEDS: PANTOPRAZOLE 40 MG TABLET PO ×2 (08:39→18:33)
[2024-10-24] MEDS: ATORVASTATIN 20 MG TABLET PO (08:39)
[2024-10-24] MEDS: CYANOCOBALAMIN 1,000 MCG TABLET 1000 MCG PO (08:39)
[2024-10-24] MEDS: CHOLECALCIFEROL 1,000 UNITS TABLET 2000 UNITS PO (08:39)
[2024-10-24] MEDS: SENNOSIDES 8.6 MG TABLET 17.2 MG PO (08:39)
[2024-10-24] MEDS: FAMOTIDINE 20 MG/2 ML VIAL IV PUSH ×2 (08:43→21:19)
--- NOTE | 2024-10-24 09:25 | P.PNIM_ITS ---
Progress Note: A&P Assessment and Plan (1) UTI (urinary tract infection): Qualifiers: Hematuria presence: without hematuria Urinary tract infection type: acute cystitis Qualified Code(s): N30.00 - Acute cystitis without hematuria Code(s): N39.0 - Urinary tract infection, site not specified Status: Acute Assessment and Plan: * UA shown trace ketones, 2+ leuk, 11-20 WBCs, 4+ bacteria * Blood and urine cultures obtained and pending * Previous urine cultures grew E coli sensitive to Rocephin * Continue Rocephin (2) Acute confusion due to medical condition: Code(s): F05 - Delirium due to known physiological condition Status: Acute Assessment and Plan: possibly secondary to UTI versus Dementia * sitter at bedside for acute agitation at night time. * Continue neuro checks * head CT was negative for any acute intracranial findings, showed atrophy and chronic white matter changes (3) Adult failure to thrive: Code(s): R62.7 - Adult failure to thrive Status: Acute Assessment and Plan: * PT and OT ordered (4) Severe protein-calorie malnutrition: Code(s): E43 - Unspecified severe protein-calorie malnutrition Status: Acute Assessment and Plan: severe protein calorie malnutrition due to secondary to new cancer diagnosis * BMI 20.2, 67.5 kg * encourage po intake * [employer] consulted (5) Dehydration: Code(s): E86.0 - Dehydration Status: Acute Assessment and Plan: * IVF continued due to poor po intake (6) Primary adenocarcinoma of esophagus with metastasis: Code(s): C15.9 - Malignant neoplasm of esophagus, unspecified Status: Acute Assessment and Plan: * 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 * GI consulted and recommending Dual PPI therapy with Pepcid and Protonix * Oncology consulted * Plan for port placement this admission for palliative chemotherapy Time Spent With Patient Time with patient: 25 - 35 minutes Subjective Date/time seen: 10/24/24 09:25 Interval history: Interval summary: This is a 79-year-old male with a significant past medical history metastatic adeno carcinoma of the esophagus, chronic UTI, dementia, hyperlipidemia, GERD who presented to the hospital today with complaints of generalized weakness and increased confusion. Workup in the hospital included a chest x-ray which shown unchanged mild bibasilar chronic interstitial lung disease, no acute cardiopulmonary disease. Chest /abdomen/ pelvis CT shown gastroesophageal stent in position, multiple areas of decreased attenuation within the liver with suspicion for metastatic disease, findings consistent with patient's known esophageal cancer with a patent gastroesophageal stent, persistent infrarenal abdominal aortic aneurysm unchanged in size, 4.2 cm, redemonstration of a left common iliac artery aneurysm also unchanged in size of [address] was negative for any acute intracranial hemorrhage/mass /infarct, atrophy and chronic white matter changes were all present. Initial labs showed a white blood cell count of 32.6, sodium 136, chloride 97, lactic acid 2.3> 2.2, calcium 10.4, AST 87, ALT 53, alkaline phos 145, total CK 213. UA was obtained and showed trace ketones, 2+ leukocytes, 11-20 urine WBC, 4+ urine bacteria. Respiratory panel was negative for influenza a and B, RSV, COVID. Blood and urine cultures were obtained and pending. Review of Past urine cultures showed E coli with some resistance to fluoroquinolones, gentamicin, Bactrim, Augmentin, Unasyn however has been sensitive to Rocephin. Patient was given 2 L of normal saline, Protonix, Rocephin while in the ED. He was started on IV fluids for hydration. Oncology and GI consulted. Subjective: Nursing states that he was agitated last night and tried climbing out of the bed multiple times, requiring bedside sitter. Labs reviewed. Review of Systems Review of Systems: All systems reviewed & are unremarkable except as noted in HPI and below Exam Narrative: General: In no acute distress, well nourished Cardiac: Normal S1 and S2. No murmur, gallops or friction rubs, peripheral pulses intact. Respiratory: Lungs clear to auscultation, no adventitious lung sounds, currently on room air Gastrointestinal: soft, non-distended, non-tender, normoactive bowel sounds. : voiding without difficulty. Neuro: Alert and oriented x1-2 Psych: agitated overnight requiring sitter Objective Data Vital Signs Vital Signs: Vital Signs - 24 hr 10/23/24 14:00 10/23/24 15:10 10/23/24 21:30 Temperature 99.3 F 97.2 F L Pulse Rate 76 66 Respiratory Rate 17 16 Blood Pressure 127/64 132/63 Pulse Oximetry 100 100 Oxygen Delivery Room Air 10/24/24 05:45 Temperature 97.6 F Pulse Rate 59 L Respiratory Rate 16 Blood Pressure 134/60 Pulse Oximetry 97 Oxygen Delivery Intake/Output Intake/Output: Intake & Output 10/21/24 10/22/24 10/23/24 10/24/24 23:59 23:59 23:59 23:59 Intake Total 2049 1649 1600 Balance 2049 1649 1600 Meds/Results Medications: Active Medications Generic Name Dose Route Start Last Admin Trade Name Freq PRN Reason Stop Dose Admin Acetaminophen 650 mg 10/22/24 23:59 Acetaminophen 325 Mg Tablet PO Q4H PRN Mild Pain (1-3) or Fever Hydrocodone Bitart/Acetaminophen 1 tab 10/23/24 15:47 Hydrocodone/Acetaminophen (*Crx) 10-325 Mg Tablet PO Q8H PRN Pain 4-6 Aspirin 81 mg 10/24/24 09:00 10/24/24 08:39 Aspirin 81 Mg Enteric Tablet PO 81 mg QAM SH[facility]RIAR Administration Atorvastatin Calcium 20 mg 10/24/24 09:00 10/24/24 08:39 Atorvastatin 20 Mg Tablet PO 20 mg DAILY [facility] Administration Cyanocobalamin 1,000 mcg 10/24/24 09:00 10/24/24 08:39 Cyanocobalamin 1,000 Mcg Tablet PO 1,000 mcg DAILY [facility] Administration Dextrose 12.5 gm 10/23/24 00:04 Dextrose 50% 25 Gm/50 Ml Syringe IV PUSH PRN PRN Hypoglycemia Protocol Famotidine 20 mg 10/23/24 02:05 10/24/24 08:43 Famotidine 20 Mg/2 Ml Vial IV PUSH 20 mg Q12HR [facility] Administration Glucagon 1 mg 10/23/24 00:04 Glucagon For Inj 1 Mg Vial IM PRN PRN Hypoglycemia Protocol Glucose 15 gm 10/23/24 00:04 Glucose Oral Gel 15 Gm Of Glucse In 37.5 Gm Tube PO PRN PRN Hypoglycemia Protocol Ceftriaxone Sodium 1 gm in 50 mls @ 100 mls/hr 10/23/24 21:00 10/23/24 21:39 Rocephin 1 Gm/Ns 50 Ml IVPB 100 mls/hr Q24H [facility] Administration Sodium Chloride 1,000 mls @ 100 mls/hr 10/22/24 22:30 10/24/24 06:53 Normal Saline Iv IV CONT 100 mls/hr .Q10H [facility] Administration Dextrose 1,000 mls @ 100 mls/hr 10/23/24 00:04 Dextrose 5% 1,000 Ml IVPB PRN PRN Hypoglycemia Protocol Lidocaine 1 patch 10/23/24 15:47 Lidocaine 5% Patch TRANSDERM DAILY PRN Pain Loratadine 10 mg 10/23/24 15:59 Loratadine 10 Mg Tablet PO DAILY PRN Allergy Symptoms Mirtazapine 30 mg 10/23/24 21:00 10/23/24 21:45 Mirtazapine 30 Mg Tablet PO 30 mg HS [facility] Administration Miscellaneous Information 1 each 10/23/24 00:01 Naproxen Prn Pain . Vague Order. Has 3 Pain Meds Prn Currently That Cover The 1-10 Pain S XX 11/22/24 00:00 [facility] Miscellaneous Information 1 each 10/23/24 00:01 Gemtesa Is Nonformulary. Can He Use Home Supply? XX 11/22/24 00:00 [facility] Morphine Sulfate 2 mg 10/22/24 23:59 Morphine Sulfate (*Crx) 2 Mg/Ml Inj IV PUSH Q2H PRN Pain Rated 7-10 Naproxen 375 mg 10/23/24 15:47 Naproxen 375 Mg Tablet PO BID PRN pain Non-Formulary Medication 75 mg 10/23/24 21:00 Vibegron [Gemtesa] PO 11/22/24 20:59 HS [facility] Ondansetron HCl 4 mg 10/22/24 23:59 Ondansetron Inj 4 Mg/2 Ml Vial IV PUSH Q4H PRN Nausea Pantoprazole Sodium 40 mg 10/23/24 17:00 10/24/24 08:39 Pantoprazole 40 Mg Tablet PO 40 mg BID [facility] Administration Senna 17.2 mg 10/24/24 09:00 10/24/24 08:39 Sennosides 8.6 Mg Tablet PO 17.2 mg DAILY [facility] Administration Sucralfate 1,000 mg 10/23/24 06:30 10/24/24 08:38 Sucralfate Susp 100 Mg/Ml 10 Ml Udc PO Not Given ACHS [facility] Trimethoprim 100 mg 10/23/24 21:00 10/23/24 21:45 Trimethoprim 100 Mg Tablet PO 100 mg HS [facility] Administration Vitamin D 2,000 units 10/24/24 09:00 10/24/24 08:39 Cholecalciferol 1,000 Units Tablet PO 2,000 units DAILY [facility] Administration Radiology Results: ITS Impressions Chest X-Ray 10/22/24 17:36 IMPRESSION: 1. Unchanged mild bibasilar chronic interstitial lung disease. No acute cardiopulmonary disease. Chest/Abdomen/Pelvis CT 10/22/24 20:07 IMPRESSION: Gastroesophageal stent in position. Innumerable areas of decreased attenuation within the liver, for which metastatic disease is suspected. Findings consistent with patient's known esophageal cancer with a patent gastroesophageal stent. Persistent infrarenal abdominal aortic aneurysm, unchanged in size. 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 Head CT 10/23/24 05:35 Impression: No intracranial hemorrhage, mass, or acute infarct. Atrophy and chronic white matter changes, as above. Labs Labs: Laboratory Results - last 24 hr 10/23/24 10/24/24 16:01 05:54 WBC 22.4 H 15.5 H RBC 3.65 L 3.46 L Hgb 11.4 L D 10.8 L Hct 35.3 L 33.9 L MCV 96.7 98.0 MCH 31.2 31.2 MCHC 32.3 31.9 L RDW 12.6 12.3 Plt Count 252 197 MPV 9.7 10.6 H Immature Gran % (Auto) 0.7 H 0.5 Neut % (Auto) 83.0 H 74.7 H Lymph % (Auto) 7.4 L 12.2 L Sutton % (Auto) 8.0 10.7 H Eos % (Auto) 0.6 1.5 Baso % (Auto) 0.3 0.4 Lymph # (Auto) 1.66 1.89 Sutton # (Auto) 1.8 H 1.7 H Eos # (Auto) 0.1 0.2 Baso # (Auto) 0.1 0.1 Abs Immat Gran (auto) 0.16 H 0.07 H Absolute Neuts (auto) 18.6 H 11.6 H Absolute Nucleated RBC 0.000 0.000 Nucleated RBC % 0.0 0.0 Sodium 135 L 135 L Potassium 3.5 3.3 L Chloride 101 104 Carbon Dioxide 27 27 Anion Gap 7 4 BUN 25 H 22 H Creatinine 0.81 0.67 L Estim Creat Clear Calc 57 68 Estimated GFR > 60 > 60 Glucose 103 88 Calcium 9.1 8.7 Iron 33 L TIBC 208 L % Saturation 16 L Ferritin 48.50 Total Bilirubin 0.5 0.5 AST 98 H 71 H ALT 63 H 57 H Alkaline Phosphatase 123 109 Total Creatine Kinase 108 Total Protein 6.0 L 6.0 L Albumin 3.3 L 2.8 L Vitamin B12 > 1000.0 H Folate 3.8 Quality VTE Prophylaxis VTE prophylaxis: mechanical ordered
[2024-10-24] MEDS: SUCRALFATE SUSP 100 MG/ML 10 ML UDC 1000 MG PO ×2 (12:11→21:25)
[2024-10-24 12:21] VITALS: BMI 20.2
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
[2024-10-24 14:00] VITALS: BP 101/49; PULSE 60; RESP 16; TEMP 36.9; O2SAT 98
--- NOTE | 2024-10-24 15:21 | PHAR ---
Pharmacy verified home med: Gemtesa 75 mg tablet take 1 tablet by mouth at bedtime
[2024-10-24 21:13] VITALS: BP 114/43; PULSE 65; RESP 12; TEMP 36.5; O2SAT 99
[2024-10-24] MEDS: MIRTAZAPINE 30 MG TABLET PO (21:25)
[2024-10-24] MEDS: VIBEGRON 75 MG 1 EACH PO (21:25)
[2024-10-24] MEDS: TRIMETHOPRIM 100 MG TABLET PO (21:25)
[2024-10-25] VITALS (10 sets, daily range): BP systolic 117–168; BP diastolic 43–83; PULSE 64–84; RESP 12–17; TEMP 36.4–37.3; O2SAT 95–100
[2024-10-25] MEDS: SUCRALFATE SUSP 100 MG/ML 10 ML UDC 1000 MG PO ×2 (05:41→20:51)
[2024-10-25] MEDS: SODIUM CHLORIDE 0.9% IV 1,000 ML 100 ML IV CONT (09:16)
[2024-10-25] MEDS: FAMOTIDINE 20 MG/2 ML VIAL IV PUSH ×2 (09:24→20:50)
--- NOTE | 2024-10-25 09:24 | PC.NURSE ---
pt npo for a procedure. called to surgery pre-op to inquire about holding po meds and they stated to hold all po meds
[2024-10-25 10:25] LABS: Basophils Absolute Auto 0.1 K/mm3 (0.0-0.1); Basophils Percent Auto 0.4 % (0.2-1.2); Eosinophils Absolute Auto 0.3 K/mm3 (0-0.3); Hematocrit 35.7 % (42.0-52.0); Hemoglobin 11.4 g/dL (14.0-18.0); Immature Granulocyte Absolute 0.05 K/mm3 (0.00-0.031); Immature Granulocyte Percent A 0.4 % (0-0.5); Lymphocytes Absolute Auto 2.25 K/mm3 (0.9-3.2); Mean Corpuscular HGB Conc 31.9 g/dl (32-36); Mean Corpuscular Hemoglobin 30.8 pg (26-34); Mean Corpuscular Volume 96.5 fl (80-100); Mean Platelet Volume 10.4 fl (7.4-10.4); Monocytes Percent Auto 9.1 % (2.6-8.5); Neutrophils Absolute Auto 7.6 K/mm3 (1.3-6.7); Neutrophils Percent Auto 67.1 % (45.5-73.1); Platelet Count Result 243 k/mm3 (150-375); Red Cell Distribution Width 12.4 % (11.5-14.5); White Blood Count 11.3 K/mm3 (4.5-10.0)
[2024-10-25 10:41] LABS: Alanine Aminotransferase 64 U/L (6-50); Albumin Level 2.9 g/dL (3.5-5.1); Alkaline Phosphatase 120 U/L (38-126); Anion Gap 4 mmol/L (4-12); Aspartate Amino Transferase 59 U/L (17-59); Bilirubin,Total 0.5 mg/dL (0.2-1.3); Blood Urea Nitrogen 12 mg/dL (9-20); Calcium 8.7 mg/dL (8.4-10.2); Carbon Dioxide 27 mmol/L (22-30); Chloride 105 mmol/L (98-107); Estimated CRCL calculation 78 ml/min; Estimated Glomerular Filt Rate > 60; Glucose 95 mg/dL (65-110); Potassium 3.3 mmol/L (3.4-5.0); Sodium 136 mmol/L (137-145)
[2024-10-25] MEDS: LACTATED RINGERS 1,000 ML 30 ML IV CONT (13:30)
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
--- NOTE | 2024-10-25 14:34 | WPDHPUPDATE1 ---
History and Physical Update Update Date/Time: 10/25/24 14:34 History and Physical has been reviewed, including an updated exam of the patient. There are NO changes in the patient's condition. Risks, benefits, and alternatives have been discussed and questions answered. Patient agrees to proceed with procedure.
--- NOTE | 2024-10-25 14:35 | WPDHPUPDATE1 ---
History and Physical Update Update Date/Time: 10/25/24 14:35 History and Physical has been reviewed, including an updated exam of the patient. There are NO changes in the patient's condition. Risks, benefits, and alternatives have been discussed and questions answered. Patient agrees to proceed with procedure.
[2024-10-25] MEDS: HEPARIN SODIUM, PORCINE 10,000 UNITS/10 ML VIAL 10 UNITS IRRIGATION (14:53)
[2024-10-25] MEDS: HEPARIN SODIUM 5,000 UNITS/ML VIAL 5000 UNITS IV PUSH (14:54)
[2024-10-25] MEDS: BUPIVACAINE/EPINEPHRINE 0.5% 50 ML VIAL 20 ML INFILTRATE (14:55)
--- NOTE | 2024-10-25 15:12 | W.PM.PROC2 ---
Procedure Note - Detailed Date of Procedure 10/25/24 Pre-op Diagnosis Esophageal cancer Post-op Diagnosis Same Procedure Performed placement right subclavian venous access device under fluroscopic guidance Surgeon Shante Gibbons MD Anesthesia MAC and Local Indications 79-year-old male with esophageal cancer needing access for chemotherapy Findings 1st stick right subclavian Description of Procedure Patient was brought into the operating room and placed in the supine position. After adequate induction of mac anesthesia, the patient was prepped and draped in normal sterile fashion. Time-out was then done to verify the patient's identity, as well as the procedure being performed. I began by making a small incision in the right chest, I then gained access into the right subclavian vein with an 18 gauge needle. I then placed the guidewire into the vein and confirmed placement via fluoroscopic guidance. I then locally anesthetized the area in the right chest. I then enlarged the incision around the guidewire including making a subcutaneous pocket inferiorly to allow placement of the port itself. I then placed a dilating sheath over the guidewire into the right subclavian vein via sterile Seldinger technique. This was once again done and confirmed via fluoroscopic guidance. I then removed the dilator and the guidewire, now just leaving the sheath in the vein. I then fed the previously flushed catheter into the right subclavian vein under fluoroscopic guidance. At approximately 20 cm, the catheter was noted to be near the atrial caval junction. I then peeled away the sheath, now just leaving the catheter in the vein. I then was able to easily draw and flush from the catheter. The catheter was cut to fit and attached to the port itself. The port was placed into the previously made subcutaneous pocket and sutured in with 0 Ethibond suture. Final fluoroscopic view showed the termination of the catheter at the atrial caval junction with a nice smooth curvature back to the port itself. I was able to gain access to the port with a Sesay needle and was able to easily draw and flush from the port. I then flushed 4 cc of a final heparin flush into the port. The incision was closed with 3 0 Vicryl suture in the subcutaneous tissue and the skin was closed with 4 O Monocryl subcuticular suture. Dermabond was then placed on wound. The patient tolerated the procedure well and will be sent to the recovery room in stable condition. Implants R SCV VAD Estimated Blood Loss 5 Drains No Packing No Pathology None sent Complications No immediate complications Condition Stable Disposition PACU [facility] Billing Surgery - Charge Forward: Surgery Billing
--- NOTE | 2024-10-25 15:56 | SUR.PHASEI ---
RN called office at [phone] for transfer orders
--- NOTE | 2024-10-25 16:36 | SUR.PHASEI ---
LENORA called Dr Gibbons cell for transfer orders at [phone]
--- NOTE | 2024-10-25 17:57 | P.PNIM_ITS ---
Progress Note: A&P Assessment and Plan (1) UTI (urinary tract infection): Qualifiers: Hematuria presence: without hematuria Urinary tract infection type: acute cystitis Qualified Code(s): N30.00 - Acute cystitis without hematuria Code(s): N39.0 - Urinary tract infection, site not specified Status: Acute Assessment and Plan: * UA shown trace ketones, 2+ leuk, 11-20 WBCs, 4+ bacteria * Blood and urine cultures obtained and pending * Previous urine cultures grew E coli sensitive to Rocephin * Continue Rocephin 2/5 * urine culture showing E coli sensitive to Rocephin, there is no good oral option and he will continue Rocephin until Wednesday * blood cultures are showing no growth to date on preliminary read * White blood cell count down to 11.3 (2) Acute confusion due to medical condition: Code(s): F05 - Delirium due to known physiological condition Status: Acute Assessment and Plan: possibly secondary to UTI versus Dementia * sitter at bedside for acute agitation at night time. * Continue neuro checks * head CT was negative for any acute intracranial findings, showed atrophy and chronic white matter changes 2/ * continue neuro checks (3) Adult failure to thrive: Code(s): R62.7 - Adult failure to thrive Status: Acute Assessment and Plan: * PT and OT ordered 2 * continue PT and OT (4) Severe protein-calorie malnutrition: Code(s): E43 - Unspecified severe protein-calorie malnutrition Status: Acute Assessment and Plan: severe protein calorie malnutrition due to secondary to new cancer diagnosis * BMI 20.2, 67.5 kg * encourage po intake * Brokerage Office Manager consulted 2 * no change (5) Dehydration: Code(s): E86.0 - Dehydration Status: Acute Assessment and Plan: * IVF continued due to poor po intake 2 * appears euvolemic * IV fluids discontinue * encourage p.o. intake (6) Primary adenocarcinoma of esophagus with metastasis: Code(s): C15.9 - Malignant neoplasm of esophagus, unspecified Status: Acute Assessment and Plan: * 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 * GI consulted and recommending Dual PPI therapy with Pepcid and Protonix * Oncology consulted * Plan for port placement this admission for palliative chemotherapy 10/25 * right chest wall port placed today, open to air with surgical glue Time Spent With Patient Time with patient: 25 - 35 minutes Subjective Date/time seen: 10/25/24 17:57 Interval history: Interval summary: This is a 79-year-old male with a significant past medical history metastatic adeno carcinoma of the esophagus, chronic UTI, dementia, hyperlipidemia, GERD who presented to the hospital today with complaints of generalized weakness and increased confusion. Workup in the hospital included a chest x-ray which shown unchanged mild bibasilar chronic interstitial lung disease, no acute cardiopulmonary disease. Chest /abdomen/ pelvis CT shown gastroesophageal stent in position, multiple areas of decreased attenuation within the liver with nicole picion for metastatic disease, findings consistent with patient's known esophageal cancer with a patent gastroesophageal stent, persistent infrarenal abdominal aortic aneurysm unchanged in size, 4.2 cm, re-demonstration of a left common iliac artery aneurysm also unchanged in size of [address] was negative for any acute intracranial hemorrhage/mass /infarct, atrophy and chronic white matter changes were all present. Initial labs showed a white blood cell count of 32.6, sodium 136, chloride 97, lactic acid 2.3> 2.2, calcium 10.4, AST 87, ALT 53, alkaline phos 145, total CK 213. UA was obtained and showed trace ketones, 2+ leukocytes, 11-20 urine WBC, 4+ urine bacteria. Respiratory panel was negative for influenza a and B, RSV, COVID. Blood and urine cultures were obtained and pending. Review of Past urine cultures showed E coli with some resistance to fluoroquinolones, gentamicin, Bactrim, Augmentin, Unasyn however has been sensitive to Rocephin. Patient was given 2 L of normal saline, Protonix, Rocephin while in the ED. He was started on IV fluids for hydration. Oncology and GI consulted. Subjective: Patient denies any new complaints today. Labs reviewed. Review of Systems Review of Systems: All systems reviewed & are unremarkable except as noted in HPI and below Exam Narrative: General: In no acute distress, well nourished Cardiac: Normal S1 and S2. No murmur, gallops or friction rubs, peripheral pulses intact. Respiratory: Lungs clear to auscultation, no adventitious lung sounds, currently on room air Gastrointestinal: soft, non-distended, non-tender, normoactive bowel sounds. : voiding without difficulty. Neuro: Alert and oriented x1-2 Psych: agitated overnight requiring sitter Skin: right chest wall port site with surgical glue Objective Data Vital Signs Vital Signs: Vital Signs - 24 hr 10/24/24 21:13 10/25/24 06:00 10/25/24 08:00 Temperature 97.7 F 97.6 F Pulse Rate 65 64 Respiratory Rate 12 12 Blood Pressure 114/43 L 135/43 L Pulse Oximetry 99 96 Oxygen Delivery Room Air 10/25/24 15:12 10/25/24 15:25 10/25/24 15:40 Temperature 98.1 F Pulse Rate 77 66 75 Respiratory Rate 17 15 15 Blood Pressure 144/72 H 147/58 H 147/83 H Pulse Oximetry 100 96 95 Oxygen Delivery Room Air Room Air 10/25/24 15:55 10/25/24 16:10 10/25/24 16:25 Temperature Pulse Rate 65 66 69 Respiratory Rate 15 17 14 Blood Pressure 132/76 117/66 128/62 Pulse Oximetry 95 95 98 Oxygen Delivery Room Air Room Air Room Air 10/25/24 16:40 Temperature Pulse Rate 76 Respiratory Rate 13 Blood Pressure 144/77 H Pulse Oximetry 98 Oxygen Delivery Room Air Intake/Output Intake/Output: Intake & Output 10/22/24 10/23/24 10/24/24 10/25/24 23:59 23:59 23:59 23:59 Intake Total 2049 170 3438 1600 Balance 2049 170 3438 1600 Meds/Results Medications: Active Medications Generic Name Dose Route Start Last Admin Trade Name Freq PRN Reason Stop Dose Admin Acetaminophen 650 mg 10/22/24 23:59 Acetaminophen 325 Mg Tablet PO Q4H PRN Mild Pain (1-3) or Fever Hydrocodone Bitart/Acetaminophen 1 tab 10/23/24 15:47 Hydrocodone/Acetaminophen (*Crx) 10-325 Mg Tablet PO Q8H PRN Pain 4-6 Aspirin 81 mg 10/24/24 09:00 10/24/24 08:39 Aspirin 81 Mg Enteric Tablet PO 81 mg QAM SHAHRIAR Administration Atorvastatin Calcium 20 mg 10/24/24 09:00 10/24/24 08:39 Atorvastatin 20 Mg Tablet PO 20 mg DAILY SHAHRIAR Administration Cyanocobalamin 1,000 mcg 10/24/24 09:00 10/24/24 08:39 Cyanocobalamin 1,000 Mcg Tablet PO 1,000 mcg DAILY SHAHRIAR Administration Dextrose 12.5 gm 10/23/24 00:04 Dextrose 50% 25 Gm/50 Ml Syringe IV PUSH PRN PRN Hypoglycemia Protocol Famotidine 20 mg 10/23/24 02:05 10/25/24 09:24 Famotidine 20 Mg/2 Ml Vial IV PUSH 20 mg Q12HR SHAHRIAR Administration Glucagon 1 mg 10/23/24 00:04 Glucagon For Inj 1 Mg Vial IM PRN PRN Hypoglycemia Protocol Glucose 15 gm 10/23/24 00:04 Glucose Oral Gel 15 Gm Of Glucse In 37.5 Gm Tube PO PRN PRN Hypoglycemia Protocol Home Med 1 each 10/24/24 21:00 10/24/24 21:25 Vibegron [Gemtesa] 75 Mg Tablet *Home Supply* PO 11/23/24 20:59 1 each HS SHAHRIAR Administration Ceftriaxone Sodium 1 gm in 50 mls @ 100 mls/hr 10/23/24 21:00 10/24/24 21:19 Rocephin 1 Gm/Ns 50 Ml IVPB 10/28/24 21:29 100 mls/hr Q24H SHAHRIAR Administration Sodium Chloride 1,000 mls @ 100 mls/hr 10/22/24 22:30 10/25/24 09:16 Normal Saline Iv IV CONT 100 mls/hr .Q10H SHAHRIAR Administration Dextrose 1,000 mls @ 100 mls/hr 10/23/24 00:04 Dextrose 5% 1,000 Ml IVPB PRN PRN Hypoglycemia Protocol Lidocaine 1 patch 10/23/24 15:47 Lidocaine 5% Patch TRANSDERM DAILY PRN Pain Loratadine 10 mg 10/23/24 15:59 Loratadine 10 Mg Tablet PO DAILY PRN Allergy Symptoms Mirtazapine 30 mg 10/23/24 21:00 10/24/24 21:25 Mirtazapine 30 Mg Tablet PO 30 mg HS SHAHRIAR Administration Miscellaneous Information 1 each 10/23/24 00:01 Naproxen Prn Pain . Vague Order. Has 3 Pain Meds Prn Currently That Cover The 1-10 Pain S XX 11/22/24 00:00 CLARIFY SHAHRIAR Morphine Sulfate 2 mg 10/22/24 23:59 Morphine Sulfate (*Crx) 2 Mg/Ml Inj IV PUSH Q2H PRN Pain Rated 7-10 Naproxen 375 mg 10/23/24 15:47 Naproxen 375 Mg Tablet PO BID PRN pain Ondansetron HCl 4 mg 10/22/24 23:59 Ondansetron Inj 4 Mg/2 Ml Vial IV PUSH Q4H PRN Nausea Pantoprazole Sodium 40 mg 10/23/24 17:00 10/24/24 18:33 Pantoprazole 40 Mg Tablet PO 40 mg BID SHAHRIAR Administration Senna 17.2 mg 10/24/24 09:00 10/24/24 08:39 Sennosides 8.6 Mg Tablet PO 17.2 mg DAILY SHAHRIAR Administration Sucralfate 1,000 mg 10/23/24 06:30 10/25/24 12:00 Sucralfate Susp 100 Mg/Ml 10 Ml Udc PO Not Given ACHS SHAHRIAR Trimethoprim 100 mg 10/23/24 21:00 10/24/24 21:25 Trimethoprim 100 Mg Tablet PO 100 mg HS SHAHRIAR Administration Vitamin D 2,000 units 10/24/24 09:00 10/24/24 08:39 Cholecalciferol 1,000 Units Tablet PO 2,000 units DAILY SHAHRIAR Administration Radiology Results: ITS Impressions Chest/Abdomen/Pelvis CT 10/22/24 20:07 IMPRESSION: Gastroesophageal stent in position. Innumerable areas of decreased attenuation within the liver, for which metastatic disease is suspected. Findings consistent with patient's known esophageal cancer with a patent gastroesophageal stent. Persistent infrarenal abdominal aortic aneurysm, unchanged in size. 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 Head CT 10/23/24 05:35 Impression: No intracranial hemorrhage, mass, or acute infarct. Atrophy and chronic white matter changes, as above. Chest X-Ray 10/25/24 15:25 IMPRESSION: 1. Port tip at the superior cavoatrial junction. 2. Stable interstitial opacities in the lower lung zones, consistent with chronic interstitial lung disease. Labs Labs: Laboratory Results - last 24 hr 10/25/24 10:08 WBC 11.3 H RBC 3.70 L Hgb 11.4 L Hct 35.7 L MCV 96.5 MCH 30.8 MCHC 31.9 L RDW 12.4 Plt Count 243 MPV 10.4 Immature Gran % (Auto) 0.4 Neut % (Auto) 67.1 Lymph % (Auto) 20.0 [place] % (Auto) 9.1 H Eos % (Auto) 3.0 Baso % (Auto) 0.4 Lymph # (Auto) 2.25 [place] # (Auto) 1.0 H Eos # (Auto) 0.3 Baso # (Auto) 0.1 Abs Immat Gran (auto) 0.05 H Absolute Neuts (auto) 7.6 H Absolute Nucleated RBC 0.000 Nucleated RBC % 0.0 Sodium 136 L Potassium 3.3 L Chloride 105 Carbon Dioxide 27 Anion Gap 4 BUN 12 D Creatinine 0.63 L Estim Creat Clear Calc 78 Estimated GFR > 60 Glucose 95 Calcium 8.7 Total Bilirubin 0.5 AST 59 ALT 64 H Alkaline Phosphatase 120 Total Protein 6.0 L Albumin 2.9 L Quality VTE Prophylaxis VTE prophylaxis: mechanical ordered
[2024-10-25] MEDS: PANTOPRAZOLE 40 MG TABLET PO (18:01)
[2024-10-25] MEDS: TRIMETHOPRIM 100 MG TABLET PO (20:49)
[2024-10-25] MEDS: MIRTAZAPINE 30 MG TABLET PO (20:49)
[2024-10-25] MEDS: VIBEGRON 75 MG 1 EACH PO (20:50)
[2024-10-25] MEDS: POTASSIUM CHLORIDE 20 MEQ ER TABLET 40 MEQ PO (20:50)
[2024-10-26 05:44] VITALS: BP 105/56; PULSE 55; RESP 14; TEMP 36.3; O2SAT 98
[2024-10-26] MEDS: SUCRALFATE SUSP 100 MG/ML 10 ML UDC 1000 MG PO ×4 (05:56→20:32)
--- NOTE | 2024-10-26 09:30 | P.PNIM_ITS ---
Progress Note: A&P Assessment and Plan (1) UTI (urinary tract infection): Qualifiers: Hematuria presence: without hematuria Urinary tract infection type: acute cystitis Qualified Code(s): N30.00 - Acute cystitis without hematuria Code(s): N39.0 - Urinary tract infection, site not specified Status: Acute Assessment and Plan: * UA shown trace ketones, 2+ leuk, 11-20 WBCs, 4+ bacteria * Blood and urine cultures obtained and pending * Previous urine cultures grew E coli sensitive to Rocephin * Continue Rocephin 10/25 * urine culture showing E coli sensitive to Rocephin, there is no good oral option and he will continue Rocephin until Wednesday * blood cultures are showing no growth to date on preliminary read * White blood cell count down to 11.3 10/26 * Continue Rocephin until Wednesday * Likely discharge on Wednesday * Blood culture still showing no growth to date on preliminary read * White blood cell count 10.6 (2) Acute confusion due to medical condition: Code(s): F05 - Delirium due to known physiological condition Status: Acute Assessment and Plan: possibly secondary to UTI versus Dementia * sitter at bedside for acute agitation at night time. * Continue neuro checks * head CT was negative for any acute intracranial findings, showed atrophy and chronic white matter changes 10/25 * continue neuro checks 10/26 * No change (3) Adult failure to thrive: Code(s): R62.7 - Adult failure to thrive Status: Acute Assessment and Plan: * PT and OT ordered 2 * continue PT and OT 10/26 * No change (4) Severe protein-calorie malnutrition: Code(s): E43 - Unspecified severe protein-calorie malnutrition Status: Acute Assessment and Plan: severe protein calorie malnutrition due to secondary to new cancer diagnosis * BMI 20.2, 67.5 kg * encourage po intake * Integrated Logistics Operations Manager consulted 2 * no change (5) Dehydration: Code(s): E86.0 - Dehydration Status: Acute Assessment and Plan: * IVF continued due to poor po intake 10/25 * appears euvolemic * IV fluids discontinue * encourage p.o. 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 * GI consulted and recommending Dual PPI therapy with Pepcid and Protonix * Oncology consulted * Plan for port placement this admission for palliative chemotherapy 10/25 * right chest wall port placed today, open to air with surgical glue 10/26 * No change Time Spent With Patient Time with patient: 25 - 35 minutes Subjective Date/time seen: 10/26/24 09:30 Interval history: Interval summary: This is a 79-year-old male with a significant past medical history metastatic adeno carcinoma of the esophagus, chronic UTI, dementia, hyperlipidemia, GERD who presented to the hospital today with complaints of generalized weakness and increased confusion. Workup in the hospital included a chest x-ray which shown unchanged mild bibasilar chronic interstitial lung disease, no acute cardiopulmonary disease. Chest /abdomen/ pelvis CT shown gastroesophageal stent in position, multiple areas of decreased attenuation within the liver with suspicion for metastatic disease, findings consistent with patient's known esophageal cancer with a patent gastroesophageal stent, persistent infrarenal abdominal aortic aneurysm unchanged in size, 4.2 cm, re-demonstration of a left common iliac artery aneurysm also unchanged in size of [address] was negative for any acute intracranial hemorrhage/mass /infarct, atrophy and chronic white matter changes were all present. Initial labs showed a white blood cell count of 32.6, sodium 136, chloride 97, lactic acid 2.3> 2.2, calcium 10.4, AST 87, ALT 53, alkaline phos 145, total CK 213. UA was obtained and showed trace ketones, 2+ leukocytes, 11-20 urine WBC, 4+ urine bacteria. Respiratory panel was negative for influenza a and B, RSV, COVID. Blood and urine cultures were obtained and pending. Review of Past urine cultures showed E coli with some resistance to fluoroquinolones, gentamicin, Bactrim, Augmentin, Unasyn however has been sensitive to Rocephin. Patient was given 2 L of normal saline, Protonix, Rocephin while in the ED. He was started on IV fluids for hydration. Oncology and GI consulted. Subjective: Patient denies any new complaints today. Labs reviewed. Review of Systems Review of Systems: All systems reviewed & are unremarkable except as noted in HPI and below Exam Narrative: General: In no acute distress, well nourished Cardiac: Normal S1 and S2. No murmur, gallops or friction rubs, peripheral pulses intact. Respiratory: Lungs clear to auscultation, no adventitious lung sounds, currently on room air Gastrointestinal: soft, non-distended, non-tender, normoactive bowel sounds. : voiding without difficulty. Neuro: Alert and oriented x2 Skin: right chest wall port site with surgical glue Objective Data Vital Signs Vital Signs: Vital Signs - 24 hr 10/25/24 15:12 10/25/24 15:25 10/25/24 15:34 Temperature 98.1 F 97.8 F Pulse Rate 77 66 84 Respiratory Rate 17 15 16 Blood Pressure 144/72 H 147/58 H 168/63 H Pulse Oximetry 100 96 97 Oxygen Delivery Room Air 10/25/24 15:40 10/25/24 15:55 10/25/24 16:10 Temperature Pulse Rate 75 65 66 Respiratory Rate 15 15 17 Blood Pressure 147/83 H 132/76 117/66 Pulse Oximetry 95 95 95 Oxygen Delivery Room Air Room Air Room Air 10/25/24 16:25 10/25/24 16:40 10/25/24 22:00 Temperature 99.2 F Pulse Rate 69 76 65 Respiratory Rate 14 13 16 Blood Pressure 128/62 144/77 H 134/74 Pulse Oximetry 98 98 100 Oxygen Delivery Room Air Room Air 10/26/24 05:44 Temperature 97.3 F L Pulse Rate 55 L Respiratory Rate 14 Blood Pressure 105/56 L Pulse Oximetry 98 Oxygen Delivery Intake/Output Intake/Output: Intake & Output 10/23/24 10/24/24 10/25/24 10/26/24 23:59 23:59 23:59 23:59 Intake Total 1700 3488 1840 Output Total 200 Balance 1700 3488 1640 Meds/Results Medications: Active Medications Generic Name Dose Route Start Last Admin Trade Name Freq PRN Reason Stop Dose Admin Acetaminophen 650 mg 10/22/24 23:59 Acetaminophen 325 Mg Tablet PO Q4H PRN Mild Pain (1-3) or Fever Hydrocodone Bitart/Acetaminophen 1 tab 10/23/24 15:47 Hydrocodone/Acetaminophen (*Crx) 10-325 Mg Tablet PO Q8H PRN Pain 4-6 Aspirin 81 mg 10/24/24 09:00 10/25/24 17:56 Aspirin 81 Mg Enteric Tablet PO Not Given QAM SHAHRIAR Atorvastatin Calcium 20 mg 10/24/24 09:00 10/25/24 17:56 Atorvastatin 20 Mg Tablet PO Not Given DAILY SHAHRIAR Cyanocobalamin 1,000 mcg 10/24/24 09:00 10/25/24 17:56 Cyanocobalamin 1,000 Mcg Tablet PO Not Given DAILY SHAHRIAR Dextrose 12.5 gm 10/23/24 00:04 Dextrose 50% 25 Gm/50 Ml Syringe IV PUSH PRN PRN Hypoglycemia Protocol Famotidine 20 mg 10/23/24 02:05 10/25/24 20:50 Famotidine 20 Mg/2 Ml Vial IV PUSH 20 mg Q12HR SHAHRIAR Administration Glucagon 1 mg 10/23/24 00:04 Glucagon For Inj 1 Mg Vial IM PRN PRN Hypoglycemia Protocol Glucose 15 gm 10/23/24 00:04 Glucose Oral Gel 15 Gm Of Glucse In 37.5 Gm Tube PO PRN PRN Hypoglycemia Protocol Home Med 1 each 10/24/24 21:00 10/25/24 20:50 Vibegron [Gemtesa] 75 Mg Tablet *Home Supply* PO 11/23/24 20:59 1 each HS SHAHRIAR Administration Ceftriaxone Sodium 1 gm in 50 mls @ 100 mls/hr 10/23/24 21:00 10/25/24 20:50 Rocephin 1 Gm/Ns 50 Ml IVPB 10/28/24 21:29 100 mls/hr Q24H SHAHRIAR Administration Dextrose 1,000 mls @ 100 mls/hr 10/23/24 00:04 Dextrose 5% 1,000 Ml IVPB PRN PRN Hypoglycemia Protocol Lidocaine 1 patch 10/23/24 15:47 Lidocaine 5% Patch TRANSDERM DAILY PRN Pain Loratadine 10 mg 10/23/24 15:59 Loratadine 10 Mg Tablet PO DAILY PRN Allergy Symptoms Mirtazapine 30 mg 10/23/24 21:00 10/25/24 20:49 Mirtazapine 30 Mg Tablet PO 30 mg HS SHAHRIAR Administration Miscellaneous Information 1 each 10/23/24 00:01 Naproxen Prn Pain . Vague Order. Has 3 Pain Meds Prn Currently That Cover The 1-10 Pain S XX 11/22/24 00:00 CLARIFY SHAHRIAR Morphine Sulfate 2 mg 10/22/24 23:59 Morphine Sulfate (*Crx) 2 Mg/Ml Inj IV PUSH Q2H PRN Pain Rated 7-10 Naproxen 375 mg 10/23/24 15:47 Naproxen 375 Mg Tablet PO BID PRN pain Ondansetron HCl 4 mg 10/22/24 23:59 Ondansetron Inj 4 Mg/2 Ml Vial IV PUSH Q4H PRN Nausea Pantoprazole Sodium 40 mg 10/23/24 17:00 10/25/24 18:01 Pantoprazole 40 Mg Tablet PO 40 mg BID SHAHRIAR Administration Senna 17.2 mg 10/24/24 09:00 10/25/24 17:57 Sennosides 8.6 Mg Tablet PO Not Given DAILY SHAHRIAR Sucralfate 1,000 mg 10/23/24 06:30 10/26/24 05:56 Sucralfate Susp 100 Mg/Ml 10 Ml Udc PO 1,000 mg ACHS SHAHRIAR Administration Trimethoprim 100 mg 10/23/24 21:00 10/25/24 20:49 Trimethoprim 100 Mg Tablet PO 100 mg HS SHAHRIAR Administration Vitamin D 2,000 units 10/24/24 09:00 10/25/24 17:56 Cholecalciferol 1,000 Units Tablet PO Not Given DAILY SHAHRIAR Radiology Results: ITS Impressions Chest/Abdomen/Pelvis CT 10/22/24 20:07 IMPRESSION: Gastroesophageal stent in position. Innumerable areas of decreased attenuation within the liver, for which metastatic disease is suspected. Findings consistent with patient's known esophageal cancer with a patent gastroesophageal stent. Persistent infrarenal abdominal aortic aneurysm, unchanged in size. 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 Head CT 10/23/24 05:35 Impression: No intracranial hemorrhage, mass, or acute infarct. Atrophy and chronic white matter changes, as above. Chest X-Ray 10/25/24 15:25 IMPRESSION: 1. Port tip at the superior cavoatrial junction. 2. Stable interstitial opacities in the lower lung zones, consistent with chronic interstitial lung disease. Labs Labs: Laboratory Results - last 24 hr 10/25/24 10:08 WBC 11.3 H RBC 3.70 L Hgb 11.4 L Hct 35.7 L MCV 96.5 MCH 30.8 MCHC 31.9 L RDW 12.4 Plt Count 243 MPV 10.4 Immature Gran % (Auto) 0.4 Neut % (Auto) 67.1 Lymph % (Auto) 20.0 [place] % (Auto) 9.1 H Eos % (Auto) 3.0 Baso % (Auto) 0.4 Lymph # (Auto) 2.25 [place] # (Auto) 1.0 H Eos # (Auto) 0.3 Baso # (Auto) 0.1 Abs Immat Gran (auto) 0.05 H Absolute Neuts (auto) 7.6 H Absolute Nucleated RBC 0.000 Nucleated RBC % 0.0 Sodium 136 L Potassium 3.3 L Chloride 105 Carbon Dioxide 27 Anion Gap 4 BUN 12 D Creatinine 0.63 L Estim Creat Clear Calc 78 Estimated GFR > 60 Glucose 95 Calcium 8.7 Total Bilirubin 0.5 AST 59 ALT 64 H Alkaline Phosphatase 120 Total Protein 6.0 L Albumin 2.9 L Quality VTE Prophylaxis VTE prophylaxis: mechanical ordered
[2024-10-26 10:13] LABS: Basophils Absolute Auto 0.1 K/mm3 (0.0-0.1); Basophils Percent Auto 0.6 % (0.2-1.2); Eosinophils Absolute Auto 0.3 K/mm3 (0-0.3); Eosinophils Percent Auto 3.2 % (0-4.4); Hematocrit 36.8 % (42.0-52.0); Immature Granulocyte Absolute 0.06 K/mm3 (0.00-0.031); Immature Granulocyte Percent A 0.6 % (0-0.5); Lymphocytes Absolute Auto 1.29 K/mm3 (0.9-3.2); Lymphocytes Percent Auto 12.2 % (18.3-44.2); Mean Corpuscular HGB Conc 32.6 g/dl (32-36); Mean Corpuscular Hemoglobin 31.3 pg (26-34); Mean Corpuscular Volume 95.8 fl (80-100); Monocytes Absolute Auto 0.8 K/mm3 (0.1-0.6); Monocytes Percent Auto 7.6 % (2.6-8.5); Neutrophils Absolute Auto 8.1 K/mm3 (1.3-6.7); Neutrophils Percent Auto 75.8 % (45.5-73.1); Platelet Count Result 256 k/mm3 (150-375); Red Blood Count 3.84 M/mm3 (4.6-6.20); Red Cell Distribution Width 12.4 % (11.5-14.5); White Blood Count 10.6 K/mm3 (4.5-10.0)
[2024-10-26] MEDS: ASPIRIN 81 MG ENTERIC TABLET PO (10:25)
[2024-10-26 10:26] LABS: Alanine Aminotransferase 53 U/L (6-50); Albumin Level 2.8 g/dL (3.5-5.1); Alkaline Phosphatase 122 U/L (38-126); Anion Gap 6 mmol/L (4-12); Aspartate Amino Transferase 47 U/L (17-59); Bilirubin,Total 0.5 mg/dL (0.2-1.3); Blood Urea Nitrogen 13 mg/dL (9-20); Calcium 9.1 mg/dL (8.4-10.2); Carbon Dioxide 30 mmol/L (22-30); Chloride 103 mmol/L (98-107); Estimated CRCL calculation 72 ml/min; Estimated Glomerular Filt Rate > 60; Glucose 138 mg/dL (65-110); Potassium 3.3 mmol/L (3.4-5.0); Sodium 139 mmol/L (137-145)
[2024-10-26] MEDS: SENNOSIDES 8.6 MG TABLET 17.2 MG PO (10:26)
[2024-10-26] MEDS: CYANOCOBALAMIN 1,000 MCG TABLET 1000 MCG PO (10:26)
[2024-10-26] MEDS: PANTOPRAZOLE 40 MG TABLET PO ×2 (10:26→17:39)
[2024-10-26] MEDS: CHOLECALCIFEROL 1,000 UNITS TABLET 2000 UNITS PO (10:26)
[2024-10-26] MEDS: ATORVASTATIN 20 MG TABLET PO (10:26)
[2024-10-26] MEDS: FAMOTIDINE 20 MG/2 ML VIAL IV PUSH ×2 (10:27→20:32)
[2024-10-26 10:35] VITALS: O2SAT 98
[2024-10-26 20:00] VITALS: PULSE 55; RESP 14; O2SAT 98
[2024-10-26] MEDS: VIBEGRON 75 MG 1 EACH PO (20:32)
[2024-10-26] MEDS: TRIMETHOPRIM 100 MG TABLET PO (20:32)
[2024-10-26] MEDS: MIRTAZAPINE 30 MG TABLET PO (20:32)
[2024-10-26 22:37] VITALS: BP 135/57; PULSE 77; RESP 20; TEMP 36.6; O2SAT 99
[2024-10-27] MEDS: SUCRALFATE SUSP 100 MG/ML 10 ML UDC 1000 MG PO ×4 (05:42→20:41)
[2024-10-27 06:00] VITALS: BP 130/57; PULSE 65; RESP 20; TEMP 36.7; O2SAT 100
[2024-10-27] MEDS: PANTOPRAZOLE 40 MG TABLET PO ×2 (08:50→16:57)
[2024-10-27] MEDS: ASPIRIN 81 MG ENTERIC TABLET PO (08:50)
[2024-10-27] MEDS: SENNOSIDES 8.6 MG TABLET 17.2 MG PO (08:50)
[2024-10-27] MEDS: CYANOCOBALAMIN 1,000 MCG TABLET 1000 MCG PO (08:51)
[2024-10-27] MEDS: CHOLECALCIFEROL 1,000 UNITS TABLET 2000 UNITS PO (08:51)
[2024-10-27] MEDS: ATORVASTATIN 20 MG TABLET PO (08:51)
[2024-10-27] MEDS: FAMOTIDINE 20 MG/2 ML VIAL IV PUSH ×2 (08:54→20:41)
[2024-10-27 11:50] LABS: Alanine Aminotransferase 56 U/L (6-50); Albumin Level 2.8 g/dL (3.5-5.1); Alkaline Phosphatase 117 U/L (38-126); Anion Gap 5 mmol/L (4-12); Aspartate Amino Transferase 54 U/L (17-59); Bilirubin,Total 0.4 mg/dL (0.2-1.3); Blood Urea Nitrogen 20 mg/dL (9-20); Calcium 9.1 mg/dL (8.4-10.2); Carbon Dioxide 31 mmol/L (22-30); Chloride 103 mmol/L (98-107); Estimated CRCL calculation 68 ml/min; Estimated Glomerular Filt Rate > 60; Glucose 107 mg/dL (65-110); Potassium 3.4 mmol/L (3.4-5.0); Sodium 139 mmol/L (137-145)
[2024-10-27 11:54] LABS: Basophils Absolute Auto 0.1 K/mm3 (0.0-0.1); Basophils Percent Auto 0.8 % (0.2-1.2); Eosinophils Absolute Auto 0.3 K/mm3 (0-0.3); Eosinophils Percent Auto 3.4 % (0-4.4); Hematocrit 36.5 % (42.0-52.0); Hemoglobin 11.8 g/dL (14.0-18.0); Immature Granulocyte Absolute 0.04 K/mm3 (0.00-0.031); Immature Granulocyte Percent A 0.4 % (0-0.5); Lymphocytes Percent Auto 14.8 % (18.3-44.2); Mean Corpuscular HGB Conc 32.3 g/dl (32-36); Mean Corpuscular Hemoglobin 31.4 pg (26-34); Mean Corpuscular Volume 97.1 fl (80-100); Mean Platelet Volume 10.3 fl (7.4-10.4); Monocytes Absolute Auto 1.1 K/mm3 (0.1-0.6); Monocytes Percent Auto 10.4 % (2.6-8.5); Neutrophils Absolute Auto 7.1 K/mm3 (1.3-6.7); Neutrophils Percent Auto 70.2 % (45.5-73.1); Platelet Count Result 270 k/mm3 (150-375); Red Blood Count 3.76 M/mm3 (4.6-6.20); Red Cell Distribution Width 12.4 % (11.5-14.5); White Blood Count 10.1 K/mm3 (4.5-10.0)
--- NOTE | 2024-10-27 13:58 | P.PNIM_ITS ---
Progress Note: A&P Assessment and Plan (1) UTI (urinary tract infection): Qualifiers: Hematuria presence: without hematuria Urinary tract infection type: acute cystitis Qualified Code(s): N30.00 - Acute cystitis without hematuria Code(s): N39.0 - Urinary tract infection, site not specified Status: Acute Assessment and Plan: * UA shown trace ketones, 2+ leuk, 11-20 WBCs, 4+ bacteria * Blood and urine cultures obtained and pending * Previous urine cultures grew E coli sensitive to Rocephin * Continue Rocephin 10/25 * urine culture showing E coli sensitive to Rocephin, there is no good oral option and he will continue Rocephin until Wednesday * blood cultures are showing no growth to date on preliminary read * White blood cell count down to 11.3 10/26 * Continue Rocephin until Wednesday * Likely discharge on Wednesday * Blood culture still showing no growth to date on preliminary read * White blood cell count 10.6 10/27 * continue Rocephin * White blood cell count down to 10.1 * blood culture still showing no growth to date on preliminary read (2) Acute confusion due to medical condition: Code(s): F05 - Delirium due to known physiological condition Status: Acute Assessment and Plan: possibly secondary to UTI versus Dementia * sitter at bedside for acute agitation at night time. * Continue neuro checks * head CT was negative for any acute intracranial findings, showed atrophy and chronic white matter changes 10/25 * continue neuro checks 10/26 * No change 10/27 * at baseline mental function (3) Adult failure to thrive: Code(s): R62.7 - Adult failure to thrive Status: Acute Assessment and Plan: * PT and OT ordered 10/25 * continue PT and OT 10/26 * No change 10/27 * no change to current treatment plan (4) Severe protein-calorie malnutrition: Code(s): E43 - Unspecified severe protein-calorie malnutrition Status: Acute Assessment and Plan: severe protein calorie malnutrition due to secondary to new cancer diagnosis * BMI 20.2, 67.5 kg * encourage po intake * Crutch Maker consulted 10/25 * no change 10/26 * continue ensure enlive t.i.d. and Sergei b.i.d. * encourage p.o. intake (5) Dehydration: Code(s): E86.0 - Dehydration Status: Acute Assessment and Plan: * IVF continued due to poor po intake 10/25 * appears euvolemic * IV fluids discontinue * encourage p.o. 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 * GI consulted and recommending Dual PPI therapy with Pepcid and Protonix * Oncology consulted * Plan for port placement this admission for palliative chemotherapy 10/25 * right chest wall port placed today, open to air with surgical glue 10/26 * No change Time Spent With Patient Time with patient: 25 - 35 minutes Subjective Date/time seen: 10/27/24 13:58 Interval history: Interval summary: This is a 79-year-old male with a significant past medical history metastatic adeno carcinoma of the esophagus, chronic UTI, dementia, hyperlipidemia, GERD who presented to the hospital today with complaints of generalized weakness and increased confusion. Workup in the hospital included a chest x-ray which shown unchanged mild bibasilar chronic interstitial lung disease, no acute cardiopulmonary disease. Chest /abdomen/ pelvis CT shown gastroesophageal stent in position, multiple areas of decreased attenuation within the liver with suspicion for metastatic disease, findings consistent with patient's known esophageal cancer with a patent gastroesophageal stent, persistent infrarenal abdominal aortic aneurysm unchanged in size, 4.2 cm, re-demonstration of a left common iliac artery aneurysm also unchanged in size of [address] was negative for any acute intracranial hemorrhage/mass /infarct, atrophy and chronic white matter changes were all present. Initial labs showed a white blood cell count of 32.6, sodium 136, chloride 97, lactic acid 2.3> 2.2, calcium 10.4, AST 87, ALT 53, alkaline phos 145, total CK 213. UA was obtained and showed trace ketones, 2+ leukocytes, 11-20 urine WBC, 4+ urine bacteria. Respiratory panel was negative for influenza a and B, RSV, COVID. Blood and urine cultures were obtained and pending. Review of Past urine cultures showed E coli with some resistance to fluoroquinolones, gentamicin, Bactrim, Augmentin, Unasyn however has been sensitive to Rocephin. Patient was given 2 L of normal saline, Protonix, Rocephin while in the ED. He was started on IV fluids for hydration. Oncology and GI consulted. Subjective: Patient denies any new complaints today. Labs reviewed. Review of Systems Review of Systems: All systems reviewed & are unremarkable except as noted in HPI and below Exam Narrative: General: In no acute distress, well nourished Cardiac: Normal S1 and S2. No murmur, gallops or friction rubs, peripheral pulses intact. Respiratory: Lungs clear to auscultation, no adventitious lung sounds, currently on room air Gastrointestinal: soft, non-distended, non-tender, normoactive bowel sounds. : voiding without difficulty. Neuro: Alert and oriented x2 Skin: right chest wall port site with surgical glue Objective Data Vital Signs Vital Signs: Vital Signs - 24 hr 10/26/24 20:00 10/26/24 22:37 10/27/24 06:00 Temperature 97.9 F 98.0 F Pulse Rate 55 L 77 65 Respiratory Rate 14 20 20 Blood Pressure 135/57 L 130/57 L Pulse Oximetry 98 99 100 Oxygen Delivery Room Air 10/27/24 08:50 Temperature Pulse Rate Respiratory Rate Blood Pressure Pulse Oximetry Oxygen Delivery Room Air Intake/Output Intake/Output: Intake & Output 10/24/24 10/25/24 10/26/24 10/27/24 23:59 23:59 23:59 23:59 Intake Total 3488 1890 1030 420 Output Total 200 Balance 3488 1690 1030 420 Meds/Results Medications: Active Medications Generic Name Dose Route Start Last Admin Trade Name Freq PRN Reason Stop Dose Admin Acetaminophen 650 mg 10/22/24 23:59 Acetaminophen 325 Mg Tablet PO Q4H PRN Mild Pain (1-3) or Fever Hydrocodone Bitart/Acetaminophen 1 tab 10/23/24 15:47 Hydrocodone/Acetaminophen (*Crx) 10-325 Mg Tablet PO Q8H PRN Pain 4-6 Aspirin 81 mg 10/24/24 09:00 10/27/24 08:50 Aspirin 81 Mg Enteric Tablet PO 81 mg QAM SHAHRIAR Administration Atorvastatin Calcium 20 mg 10/24/24 09:00 10/27/24 08:51 Atorvastatin 20 Mg Tablet PO 20 mg DAILY SHAHRIAR Administration Cyanocobalamin 1,000 mcg 10/24/24 09:00 10/27/24 08:51 Cyanocobalamin 1,000 Mcg Tablet PO 1,000 mcg DAILY SHAHRIAR Administration Dextrose 12.5 gm 10/23/24 00:04 Dextrose 50% 25 Gm/50 Ml Syringe IV PUSH PRN PRN Hypoglycemia Protocol Famotidine 20 mg 10/23/24 02:05 10/27/24 08:54 Famotidine 20 Mg/2 Ml Vial IV PUSH 20 mg Q12HR SHAHRIAR Administration Glucagon 1 mg 10/23/24 00:04 Glucagon For Inj 1 Mg Vial IM PRN PRN Hypoglycemia Protocol Glucose 15 gm 10/23/24 00:04 Glucose Oral Gel 15 Gm Of Glucse In 37.5 Gm Tube PO PRN PRN Hypoglycemia Protocol Home Med 1 each 10/24/24 21:00 10/26/24 20:32 Vibegron [Gemtesa] 75 Mg Tablet *Home Supply* PO 11/23/24 20:59 1 each HS SHAHRIAR Administration Ceftriaxone Sodium 1 gm in 50 mls @ 100 mls/hr 10/23/24 21:00 10/26/24 21:02 Rocephin 1 Gm/Ns 50 Ml IVPB 10/27/24 23:59 Infused Q24H SHAHRIAR Infusion Dextrose 1,000 mls @ 100 mls/hr 10/23/24 00:04 Dextrose 5% 1,000 Ml IVPB PRN PRN Hypoglycemia Protocol Ceftriaxone Sodium 1 gm in 50 mls @ 100 mls/hr 10/28/24 14:00 Rocephin 1 Gm/Ns 50 Ml IVPB 10/28/24 14:29 Q24H SHAHRIAR Lidocaine 1 patch 10/23/24 15:47 Lidocaine 5% Patch TRANSDERM DAILY PRN Pain Loratadine 10 mg 10/23/24 15:59 Loratadine 10 Mg Tablet PO DAILY PRN Allergy Symptoms Mirtazapine 30 mg 10/23/24 21:00 10/26/24 20:32 Mirtazapine 30 Mg Tablet PO 30 mg HS SHAHRIAR Administration Miscellaneous Information 1 each 10/23/24 00:01 Naproxen Prn Pain . Vague Order. Has 3 Pain Meds Prn Currently That Cover The 1-10 Pain S XX 11/22/24 00:00 CLARIFY SHAHRIAR Morphine Sulfate 2 mg 10/22/24 23:59 Morphine Sulfate (*Crx) 2 Mg/Ml Inj IV PUSH Q2H PRN Pain Rated 7-10 Naproxen 375 mg 10/23/24 15:47 Naproxen 375 Mg Tablet PO BID PRN pain Ondansetron HCl 4 mg 10/22/24 23:59 Ondansetron Inj 4 Mg/2 Ml Vial IV PUSH Q4H PRN Nausea Pantoprazole Sodium 40 mg 10/23/24 17:00 10/27/24 08:50 Pantoprazole 40 Mg Tablet PO 40 mg BID SHAHRIAR Administration Senna 17.2 mg 10/24/24 09:00 10/27/24 08:50 Sennosides 8.6 Mg Tablet PO 17.2 mg DAILY SHAHRIAR Administration Sucralfate 1,000 mg 10/23/24 06:30 10/27/24 11:49 Sucralfate Susp 100 Mg/Ml 10 Ml Udc PO 1,000 mg ACHS SHAHRIAR Administration Trimethoprim 100 mg 10/23/24 21:00 10/26/24 20:32 Trimethoprim 100 Mg Tablet PO 100 mg HS SHAHRIAR Administration Vitamin D 2,000 units 10/24/24 09:00 10/27/24 08:51 Cholecalciferol 1,000 Units Tablet PO 2,000 units DAILY SHAHRIAR Administration Radiology Results: ITS Impressions Chest/Abdomen/Pelvis CT 10/22/24 20:07 IMPRESSION: Gastroesophageal stent in position. Innumerable areas of decreased attenuation within the liver, for which metastatic disease is suspected. Findings consistent with patient's known esophageal cancer with a patent gastroesophageal stent. Persistent infrarenal abdominal aortic aneurysm, unchanged in size. 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 Head CT 10/23/24 05:35 Impression: No intracranial hemorrhage, mass, or acute infarct. Atrophy and chronic white matter changes, as above. Chest X-Ray 10/25/24 15:25 IMPRESSION: 1. Port tip at the superior cavoatrial junction. 2. Stable interstitial opacities in the lower lung zones, consistent with chronic interstitial lung disease. Labs Labs: Laboratory Results - last 24 hr 10/27/24 11:08 WBC 10.1 H RBC 3.76 L Hgb 11.8 L Hct 36.5 L MCV 97.1 MCH 31.4 MCHC 32.3 RDW 12.4 Plt Count 270 MPV 10.3 Immature Gran % (Auto) 0.4 Neut % (Auto) 70.2 Lymph % (Auto) 14.8 L [place] % (Auto) 10.4 H Eos % (Auto) 3.4 Baso % (Auto) 0.8 Lymph # (Auto) 1.50 [place]lee # (Auto) 1.1 H Eos # (Auto) 0.3 Baso # (Auto) 0.1 Abs Immat Gran (auto) 0.04 H Absolute Neuts (auto) 7.1 H Absolute Nucleated RBC 0.000 Nucleated RBC % 0.0 Sodium 139 Potassium 3.4 Chloride 103 Carbon Dioxide 31 H Anion Gap 5 BUN 20 Creatinine 0.70 Estim Creat Clear Calc 68 Estimated GFR > 60 Glucose 107 Calcium 9.1 Total Bilirubin 0.4 AST 54 ALT 56 H Alkaline Phosphatase 117 Total Protein 6.0 L Albumin 2.8 L Quality VTE Prophylaxis VTE prophylaxis: mechanical ordered
[2024-10-27 14:00] VITALS: BP 123/79; PULSE 83; RESP 16; TEMP 36.9; O2SAT 100
[2024-10-27] MEDS: TRIMETHOPRIM 100 MG TABLET PO (20:41)
[2024-10-27] MEDS: MIRTAZAPINE 30 MG TABLET PO (20:41)
[2024-10-27] MEDS: VIBEGRON 75 MG 1 EACH PO (20:42)
[2024-10-27 20:50] VITALS: BP 119/55; PULSE 68; RESP 18; TEMP 36.4; O2SAT 98
[2024-10-28 05:26] VITALS: BP 140/55; PULSE 61; RESP 16; TEMP 36.6; O2SAT 98
[2024-10-28] MEDS: SUCRALFATE SUSP 100 MG/ML 10 ML UDC 1000 MG PO ×2 (05:57→11:20)
[2024-10-28 06:52] LABS: Basophils Absolute Auto 0.1 K/mm3 (0.0-0.1); Basophils Percent Auto 0.7 % (0.2-1.2); Eosinophils Absolute Auto 0.6 K/mm3 (0-0.3); Eosinophils Percent Auto 5.1 % (0-4.4); Hematocrit 35.1 % (42.0-52.0); Hemoglobin 11.1 g/dL (14.0-18.0); Immature Granulocyte Absolute 0.06 K/mm3 (0.00-0.031); Immature Granulocyte Percent A 0.6 % (0-0.5); Lymphocytes Absolute Auto 2.48 K/mm3 (0.9-3.2); Lymphocytes Percent Auto 23.2 % (18.3-44.2); Mean Corpuscular HGB Conc 31.6 g/dl (32-36); Mean Corpuscular Hemoglobin 30.7 pg (26-34); Mean Corpuscular Volume 97.2 fl (80-100); Mean Platelet Volume 9.8 fl (7.4-10.4); Monocytes Absolute Auto 1.1 K/mm3 (0.1-0.6); Monocytes Percent Auto 10.3 % (2.6-8.5); Neutrophils Absolute Auto 6.4 K/mm3 (1.3-6.7); Neutrophils Percent Auto 60.1 % (45.5-73.1); Platelet Count Result 280 k/mm3 (150-375); Red Blood Count 3.61 M/mm3 (4.6-6.20); Red Cell Distribution Width 12.3 % (11.5-14.5); White Blood Count 10.7 K/mm3 (4.5-10.0)
[2024-10-28 06:57] LABS: Alanine Aminotransferase 68 U/L (6-50); Albumin Level 2.9 g/dL (3.5-5.1); Alkaline Phosphatase 129 U/L (38-126); Anion Gap 4 mmol/L (4-12); Aspartate Amino Transferase 66 U/L (17-59); Bilirubin,Total 0.4 mg/dL (0.2-1.3); Blood Urea Nitrogen 22 mg/dL (9-20); Carbon Dioxide 30 mmol/L (22-30); Chloride 102 mmol/L (98-107); Estimated CRCL calculation 76 ml/min; Estimated Glomerular Filt Rate > 60; Glucose 90 mg/dL (65-110); Potassium 3.4 mmol/L (3.4-5.0); Sodium 136 mmol/L (137-145)
[2024-10-28] MEDS: FAMOTIDINE 20 MG/2 ML VIAL IV PUSH (10:20)
[2024-10-28] MEDS: PANTOPRAZOLE 40 MG TABLET PO (10:20)
[2024-10-28] MEDS: CYANOCOBALAMIN 1,000 MCG TABLET 1000 MCG PO (10:20)
[2024-10-28] MEDS: SENNOSIDES 8.6 MG TABLET 17.2 MG PO (10:20)
[2024-10-28] MEDS: CHOLECALCIFEROL 1,000 UNITS TABLET 2000 UNITS PO (10:20)
[2024-10-28] MEDS: ATORVASTATIN 20 MG TABLET PO (10:21)
[2024-10-28] MEDS: ASPIRIN 81 MG ENTERIC TABLET PO (10:25)
--- NOTE | 2024-10-28 10:47 | P.DS_ITS ---
DS: Admitting Diagnosis Discharge Date 10/28/24 DS: Summary Time Spent with Patient Time attestation: Total time spent providing and/or coordinating discharge services: DS: Data Data Completed and Pending Labs on day of discharge: Labs from last 24 hours 10/28/24 10/27/24 06:34 11:08 WBC 10.7 H 10.1 H RBC 3.61 L 3.76 L Hgb 11.1 L 11.8 L Hct 35.1 L 36.5 L MCV 97.2 97.1 MCH 30.7 31.4 MCHC 31.6 L 32.3 RDW 12.3 12.4 Plt Count 280 270 MPV 9.8 10.3 Immature Gran % (Auto) 0.6 H 0.4 Neut % (Auto) 60.1 70.2 Lymph % (Auto) 23.2 14.8 L Child[place] % (Auto) 10.3 H 10.4 H Eos % (Auto) 5.1 H 3.4 Baso % (Auto) 0.7 0.8 Lymph # (Auto) 2.48 1.50 [place] # (Auto) 1.1 H 1.1 H Eos # (Auto) 0.6 H 0.3 Baso # (Auto) 0.1 0.1 Abs Immat Gran (auto) 0.06 H 0.04 H Absolute Neuts (auto) 6.4 7.1 H Absolute Nucleated RBC 0.000 0.000 Nucleated RBC % 0.0 0.0 Sodium 136 L 139 Potassium 3.4 3.4 Chloride 102 103 Carbon Dioxide 30 31 H Anion Gap 4 5 BUN 22 H 20 Creatinine 0.62 L 0.70 Estim Creat Clear Calc 76 68 Estimated GFR > 60 > 60 Glucose 90 107 Calcium 9.0 9.1 Total Bilirubin 0.4 0.4 AST 66 H 54 ALT 68 H 56 H Alkaline Phosphatase 129 H 117 Total Protein 6.0 L 6.0 L Albumin 2.9 L 2.8 L Preliminary micro results at discharge 10/22/24 22:42 Blood Culture - Preliminary Blood 10/22/24 22:42 Blood Culture - Preliminary Blood Discharge Plan Discharge Attending physician on discharge: Arian Whitlock Consulting providers: Jose Armando Carroll; Shante Gibbons Discharging Clinician: Renee Joseph Anticipated Discharge Date/Time: 10/28/24 10:40 Patient Disposition: Home, Self-Care Activity: as tolerated Diet: as tolerated, regular and other - see discharge instructions Discharge Instructions: * Continue soft and bite sized with meals * You finished a full course of IV antibiotics for your UTI. * Follow up with Oncology--call for appointment Patient Instructions: Antibiotic Form Patient Language: Yoruba Stand Alone Forms: General Discharge Information Follow-up/Referrals: Jose Armando Carroll MD [Physician] - Call for Appointment Alejandro Flynn MD [Primary Care Provider] - 1 Week Discharge Medications: New sucralfate [Carafate] 1 gram tablet 1 g PO WMHS Qty: 120 0RF Continued cholecalciferol (vitamin D3) 50 mcg (2,000 unit) capsule 50 mcg PO DAILY pantoprazole 40 mg tablet,delayed release (DR/EC) 40 mg PO BID 90 Days Qty: 180 3RF cyanocobalamin (vitamin B-12) 1,000 mcg Tablet 1,000 mcg PO DAILY morphine See Rx Instructions .ROUTE .COMPLEX Patient Comments: pain pump-recalled from patient history Rx Instructions: Morphine pain pump in left abdomen for back pain nitroglycerin 0.4 mg tablet, sublingual 0.4 mg sublingual Q5-10M PRN (Reason: Chest Pain) aspirin 81 mg Tablet 81 mg PO DAILY senna 8.6 mg capsule 25.8 mg PO HS hydrocodone-acetaminophen 10-325 mg tablet 1 tablet PO Q8H PRN (Reason: Pain) naproxen 375 mg tablet 375 mg PO BID PRN (Reason: pain) mirtazapine 30 mg tablet 30 mg PO HS Gemtesa 75 mg tablet 75 mg PO HS acetaminophen [Tylenol] 325 mg Tablet 325 mg PO DAILY lidocaine 5 % adhesive patch,medicated 1 patch transdermal DAILY PRN (Reason: Pain) Rx Instructions: Apply for pain 12 hrs on and off for 12 hrs mupirocin 2 % ointment 1 applic TOPICAL BID Rx Instructions: Apply to Left foot trimethoprim 100 mg tablet 100 mg PO HS atorvastatin 20 mg tablet 20 mg PO DAILY Qty: 90 2RF sennosides [senna] 8.6 mg Tablet 17.2 mg PO DAILY cetirizine 10 mg Tablet 10 mg PO DAILY PRN (Reason: Allergy Symptoms) Date of admission: 10/24/24 11:54 Primary Care Provider: Alejandro Flynn Admitting Provider: Dorota Boss Attending physician on admission: Renee Joseph Condition: Improved
== END 2024-10-28 14:55 | disposition home health service (06) | DRG 689 ==
LOC: ANHED 10-23 00:35 → ANH3MEDSUR 10-23 00:48
PROVIDERS: Internal Medicine Hematology & Oncology; Surgery; Admitting Provider Internal Medicine; Emergency Provider Physician Assistant; PCP Internal Medicine; Visit Provider Nurse Practitioner Acute Care
PROC: 0JH63WZ Insertion of Totally Implantable Vascular Access Device into Chest Subcutaneous Tissue and Fascia, Percutaneous Approach (ICD-10-PCS; principal; 2024-10-25 14:30)
DX: N39.0 Urinary tract infection, site not specified (principal); E43 Unspecified severe protein-calorie malnutrition; C15.9 Malignant neoplasm of esophagus, unspecified; C78.7 Secondary malignant neoplasm of liver and intrahepatic bile duct; F05 Delirium due to known physiological condition; I35.0 Nonrheumatic aortic (valve) stenosis; I25.10 Atherosclerotic heart disease of native coronary artery without angina pectoris; I65.23 Occlusion and stenosis of bilateral carotid arteries; I73.9 Peripheral vascular disease, unspecified; E86.0 Dehydration; E53.1 Pyridoxine deficiency; E55.9 Vitamin D deficiency, unspecified; E78.2 Mixed hyperlipidemia; D64.9 Anemia, unspecified; J43.9 Emphysema, unspecified; K57.30 Diverticulosis of large intestine without perforation or abscess without bleeding; K21.9 Gastro-esophageal reflux disease without esophagitis; N40.0 Benign prostatic hyperplasia without lower urinary tract symptoms; Z20.822 Contact with and (suspected) exposure to COVID-19; F03.90 Unspecified dementia, unspecified severity, without behavioral disturbance, psychotic disturbance, mood disturbance, and anxiety; M47.816 Spondylosis without myelopathy or radiculopathy, lumbar region; M81.0 Age-related osteoporosis without current pathological fracture; M48.061 Spinal stenosis, lumbar region without neurogenic claudication; M48.00 Spinal stenosis, site unspecified; M41.9 Scoliosis, unspecified; M54.9 Dorsalgia, unspecified; G89.29 Other chronic pain; G25.81 Restless legs syndrome; G47.30 Sleep apnea, unspecified; H54.61 Unqualified visual loss, right eye, normal vision left eye; F41.9 Anxiety disorder, unspecified; F32.A Depression, unspecified; Z96.89 Presence of other specified functional implants; T14.90XS Injury, unspecified, sequela; Z87.891 Personal history of nicotine dependence; Z95.5 Presence of coronary angioplasty implant and graft; Z79.82 Long term (current) use of aspirin; Z68.20 Body mass index [BMI] 20.0-20.9, adult
CPT/HCPCS: 36415; 70450; 71045; 71260; 74177; 77001; 80053; 81001; 82550; 82607; 82728; 82746; 83540; 83550; 83605; 84443; 85025; 85610; 85730; 87040; 87086; 87186; 87637; 93005; 96361; 96365; 96375; 97110; 97162; 97165; 97530; 97535; 99213; 99285; A9270; C1788; G0378; G0463; J0696; J1644; J2470; J2704; J7030; J7120; Q9967

== ENCOUNTER 2024-10-31 15:15 | Outpatient (CLI) | payer MEDICARE, SELFPAY ==
[2024-10-31 15:45] LABS: Kit Draw Collected
--- OUTSIDE RECORDS SUMMARY | 2024-10-31 15:56 | XMS_ITS | Clinical Summary ---
Author Organization [facility] Address [address] [place] [address] Care Team Providers Care Oncology Physician Assistant Name Role Phone Alejandro Flynn MD Primary Care Provider [phone] Richard Craft MD Unavailable [phone] Jacob Aragon MD Unavailable [phone] Addison Winchester NP Unavailable [phone] Allergies Active Allergy Reactions Criticality Noted [...] mg total) by mouth every morning 3 Active cholecalciferol (Vitamin D3) 1,000 unit capsuleIndicatio ns:Osteoporosis, Vitamin D Deficiency Take 2 capsules (2,000 Units total) by mouth every morning [address] (Protonix) 40 mg EC tabletIndication s:Stress Ulcer Prophylaxis,Adelaida tment of Non-Bleeding Gastric Disorder Take 1 tablet (40 mg total) by mouth 2 (two) times a day 3 Active cetirizine (ZyrTEC) 10 mg tablet 0 [...] within 12 hours or as directed by . 30 patch 6 4 Active doxycycline hyclate [...] 09/28/2024 Assessment & Plan (09/28/2024 1:20 PM NEWS DIRECTOR): Moderate occlusive disease bilaterally. Has a appears to be what a mixed arterial venous wound to the right lower extremity following with his therapy site coordinator. They report it is healing. We did [...] 11/27/2022 Assessment & Plan (11/27/2022 10:41 AM NEWS DIRECTOR): New right heel ulceration to the right [...] (10/06/2022): Added automatically from request for surgery [id number] Venous congestion 09/29/2022 Assessment & Plan (09/29/2022 1:22 PM NEWS DIRECTOR): Venous congestion: Left foot discoloration associated with venous congestion as patient has been minimally ambulatory over the past couple of days secondary to postprocedure. No concern for arterial, venous etiology. Patient has palpable distal pulses, motor and sensory are intact. No further workup required. Subclavian artery stenosis (CMS/HCC) 09/10/2022 Stenosis of carotid artery 08/11/2022 Overview (08/11/2022): Added automatically from request for surgery [id number] Subclavian steal syndrome 07/28/2022 Assessment & Plan (09/28/2024 1:19 PM NEWS DIRECTOR): Status post left carotid subclavian bypass. Continue risk factor modification with ASA statin therapy. Follow up in 1 year with repeat duplex. Left subclavian artery occlusion 07/28/2022 Assessment & Plan (11/27/2022 10:32 AM NEWS DIRECTOR): Continues to recover well. Denies any symptoms his upper extremities or any dizziness with exertion. Scheduled to follow-up in December with carotid duplex. Assessment & Plan (09/29/2022 1:23 PM NEWS DIRECTOR): Left subclavian steal syndrome: Patient status post left carotid subclavian formed 09/10/2022. Patient doing well status post surgical intervention. Remains asymptomatic. Patient to follow-up in the office in 3 months with repeat imaging Lumbar post-laminectomy syndrome 04/17/2021 Presence of intrathecal pump 12/10/2020 Mixed hyperlipidemia 02/23/2020 Assessment & Plan (09/28/2024 1:18 PM NEWS DIRECTOR): Stable continue Lipitor Assessment & Plan (02/23/2020 2:54 PM CDT): Impression: Hyperlipidemia currently on pharmacotherapy. Plan: Continue ongoing statin therapy as directed by PCP. Primary osteoarthritis of left knee 08/01/2019 Chronic pain of left knee 07/26/2019 Idiopathic scoliosis and kyphoscoliosis 12/24/19 Overview (12/23/2018): Added automatically from request for surgery [id number] Spinal stenosis of lumbar re gion without neurogenic claudication 10/27/2018 Radiculopathy, lumbosacral region 10/27/2018 Aneurysm artery, iliac (CMS/HCC) 10/07/2018 Abdominal aortic aneurysm (AAA) without rupture 08/04/2018 Overview (08/04/2018): 06/29/2018 ultrasound measured 3.3 x 3.3 cm, CT scan measured 3.1 x 3.7 cm Assessment & Plan (09/28/2024 1:19 PM NEWS DIRECTOR): 4 cm AAA. 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) 08/25/2016 Encounters Date Type Department Care Team Description 10/10/2024 Telephone [facility] Scheduling [address] [place] [address] [place] Scheduling Appointments 10/09/2024 10:00 AM NEWS DIRECTOR - 10/09/2024 11:59 PM NEWS DIRECTOR Hospital Encounter [facility] [address] [place] [address] Addison Winchester, ABEL Long-term current use of opiate analgesic (Primary Dx); Cervicalgia; Chronic bilateral low back pain without sciatica; Lumbosacral spondylosis without myelopathy; Spinal stenosis of lumbar region without neurogenic claudication; Radiculopathy, lumbosacral region; Spondylosis of lumbar region without myelopathy or radiculopathy; Thoracic spine pain; Lumbar post-laminectomy syndrome; Presence of intrathecal pump Discharge Disposition: Discharge to home or self care 09/27/2024 10:00 AM NEWS DIRECTOR Office Visit [facility] Vascular at [address] [place] [phone] Umang Nicole MD Infrarenal abdominal aortic aneurysm (AAA) without rupture (HCC) (Primary Dx); Mixed hyperlipidemia; Subclavian steal syndrome; PVD (peripheral vascular disease) (HCC) 09/27/[address] [facility] at [address] [place] [phone] Umang Nicole MD PVD (peripheral vascular disease) (HCC) (Primary Dx); Left subclavian artery occlusion; Stenosis of right carotid artery; Subclavian steal syndrome; Infrarenal abdominal aortic aneurysm (AAA) without rupture (HCC) 09/26/2024 3:00 PM NEWS DIRECTOR Ancillary Procedure [facility] Vein Surgery at [address] [place] [address] Bilateral carotid artery stenosis 09/26/2024 2:00 PM NEWS DIRECTOR Ancillary Procedure [facility] Vascular and Vein Surgery at [address] [place] [address] Infrarenal abdominal aortic aneurysm (AAA) without rupture (HCC) 09/26/2024 1:00 PM NEWS DIRECTOR Ancillary Procedure [facility] Vascular and Vein Surgery at [address] [place] [address] Atherosclerotic PVD with intermittent claudication (HCC); Other specified symptoms and signs involving the circulatory and respiratory systems 09/06/2024 3:11 PM NEWS DIRECTOR - 09/06/2024 11:59 PM NEWS DIRECTOR Hospital Encounter [facility] [address] [place] [address] Addison Winchester NP Lumbar post-laminectomy syndrome (Primary Dx); Cervical spinal stenosis; Thoracic spine pain; Spondylosis without myelopathy or radiculopathy, cervicothoracic region Discharge Disposition: Discharge to home or self care 08/23/2024 2:36 PM NEWS DIRECTOR - 08/23/2024 11:59 PM NEWS DIRECTOR Hospital Encounter [facility] [address] [place] [address] Inderjit Goodman MD Thoracic spine pain; Other spondylosis, thoracic region Discharge Disposition: Discharge to home or self care 08/21/[address] [facility] Vascular and Vein Surgery [address] [facility] [address] [place] [phone] Umang Nicoel MD Atherosclerotic PVD with intermittent claudication (HCC) (Primary Dx); Infrarenal abdominal aortic aneurysm (AAA) without rupture (HCC); Bilateral carotid artery stenosis; Other specified symptoms and signs involving the circulatory and respiratory systems from Last 3 Months Immunizations Name Administration Dates Next Due Influenza, Quad, Adjuvantated, Intramuscular 12/ 08/2022 Influenza, Quadrivalent, Rec ombinant, Egg Free, [...] (coronary artery disease) Chronic pain disorder Cancer (CMS/HCC) (HCC) 2020 skin, ear Chest pain Pt states not r eally when asked about recent episodes of chest pain. Ear problems Gastric reflux History of transfusion Lumbar stenosis Hypotension Chronic kidney disease 1999 Blindness of right eye 1959 Has some peripheral vision. 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, self-employed realtor Not on file Not on file Not on file Obstetrics History Last Filed Vital Signs Vital Sign Reading Time Taken Comments Blood Pressure 133/78 10/09/2024 10:29 AM NEWS DIRECTOR Pulse 66 10/09/2024 10:29 AM NEWS DIRECTOR Temperature 36.5 C (97.7 F) 08/23/2024 2:59 PM NEWS DIRECTOR Respiratory Rate 17 10/09/2024 10:29 AM NEWS DIRECTOR Oxygen Saturation 100% 10/09/2024 10:29 AM NEWS DIRECTOR Inhaled Oxygen Concentration - - Weight 72.6 kg (160 lb) 09/27/2024 10:14 AM NEWS DIRECTOR Height 182.9 cm (6') 09/27/2024 10:14 AM NEWS DIRECTOR Body Mass Index 21.7 09/27/2024 10:14 AM NEWS DIRECTOR Plan of Treatment Health Maintenance Due Date [...] history exists Medical Devices Implanted Type Area Literacy Education Professor Device Identifier Shelf Expiration Date Model / Serial / Lot Stent Implanted:Qty: 3 Stent N/A: Coronary Artery Med[employer] Inc 32925 Neurostimulator Implantable Chronic Pain Rs2 - [id number] - [id number] Implanted:Qty: 1 on 06/16/2018 by Inderjit Goodman MD at [facility] N/A: Back Med[employer] Inc 02/14/2019 49477 / [id number] / Medtronic Inc 8782 Ascenda 2 Attached Collet Spinal Segment Revision Catheter - [id number] - [id number] Implanted:Qty: 1 on 01/13/2019 by Hilario Kumar MD at [facility] Spine Lumbar [employer] Inc 12/22/2019 8782 / [id number] / Med[employer]onic Inc 89356 Neurostimulator Implantable Chronic Pain Rs2 - [id number] - [id number] Implanted:Qty: 1 on 05/11/2019 by Inderjit Goodman MD at [facility] N/A: Back Med[employer] Inc 02/01/2020 37969 / [id number] / Medtronic Neuro 8637-20 Synchromed Ii .78in [place] Filter Mesh Pouch Programmable - [id number] - [id number] Implanted:Qty: 1 on 05/06/2021 by Inderjit Goodman MD at [facility] N/A: Abdomen Med[employer] Inc 10/17/2022 8637-20 / [id number] / [employer] 8mm 40cm Stretch Peripheral Thin Wall Graft Vascular [place] Sn4501 - [id number] - [id number] Implanted:Qty: 1 on 09/10/2022 by Jacob Aragno MD at [facility] Left: Subclavian Artery [employer] [id number] 03/17/2027 [id number] / [id number] / Nuvasive Inc Screw Spine Reline C Lock Open Non-Sterile Latex Free [id number] - [id number] Implanted:Qty: 8 on 02/01/2023 by Domingo Srinivasan MD at [facility] N/A: Spine Cervical [employer] Inc [id number] / / Nuvasive Inc Andreas Spine Reline C Ti Prebent 4.0x70mm Latex Free [id number] - [id number] Implanted:Qty: 2 on 02/01/2023 by Domingo Srinivasan MD at [facility] N/A: Spine Cervical [employer] Inc [id number] / / Nuvasive Reline C 5.0x35mm Red Screw Implanted:Qty: 2 on 02/01/2023 by Domingo Srinivasan MD at [facility] N/A: Spine Cervical [employer] Inc [id number] / N/A / Abyrx Hemasorb Os-Spa Spatula Wax 2gm Bone Sterile Os-201 - [id number] Implanted:Qty: 1 on 02/01/2023 by Domingo Srinivasan MD at [facility] N/A: Spine Thoracic Abyrx [id number] 02/17/2025 OS-201 / / [id number] [employer] Graft Bone Magnetos 10cc 1-2mm Granules In Moldable Putty [id number]-[id number] - Sn/A - [id number] Implanted:Qty: 1 on 02/01/2023 by Domingo Srinivasan MD at [facility] N/A: Spine Cervical [employer] [id number] 12/19/2024 703-038- US / N/A / [id number] Nuvasive Inc Screw Spine Reline C Ma 3.5x16mm Non-Sterile Latex Free [id number] - [id number] Implanted:Qty: 6 on 02/01/2023 by Domingo Srinivasan MD at [facility] N/A: Spine Cervical [employer]uv[employer] Inc [id number] / / Explanted Type Area Literacy Education Professor Device Identifier Shelf Expiration Date Model / Serial / Lot Spinal Cord Stimulator Generator Explanted:Qty: 1 on 05/11/2019 by Inderjit Goodman MD at [facility] N/A: Back Medtronic [id number] / / Procedures Procedure Name Priority Date/Time Associated Diagnosis Comments US CAROTIDS DUPLEX BILATERAL Schedule Routine, Read Routine (OP Routine) 09/26/2024 2:37 PM NEWS DIRECTOR Bilateral carotid artery stenosis US DUPLEX SCAN AORTA, IVC ILIAC COMPLETE Schedule Routine, Read Routine (OP Routine) 09/26/2024 2:37 PM NEWS DIRECTOR Infrarenal abdominal aortic aneurysm (AAA) without rupture (HCC) US ARTERIAL DOPPLER LOWER EXTREMITY BILATERAL Schedule Routine, Read Routine (OP Routine) 09/26/2024 2:37 PM NEWS DIRECTOR Atherosclerotic PVD with intermittent claudication (HCC) Other specified symptoms and signs involving the circulatory and respiratory systems PAIN MGMT IMAGING CERVICAL/THORACIC FACET/MEDIAL BRANCH BLOCK BILATERAL Schedule Routine, Read Routine (OP Routine) 08/23/2024 3:32 PM NEWS DIRECTOR Thoracic spine pain Other spondylosis, thoracic region CTA ABDOMEN PELVIS W WO CONTRAST Routine 08/23/2015 12:00 AM NEWS DIRECTOR from Last 3 Months or Most Recently Relevant to Health Maintenance Results * US Carotids Duplex Bilateral (09/26/2024 2:37 PM NEWS DIRECTOR) LV EF % CONS SCIMAGE Anatomical Region Laterality Modality Vascular Bilateral Ultrasound 09/26/2024 1:04 PM NEWS DIRECTOR Narrative 09/27/2024 10:23 AM NEWS DIRECTOR Vascular & Vein Surgery [address] [place] [address] Carotid Duplex Ultrasound Report Patient Name: ELZA SCHERER W : 1945 (79y 2m) Study Date: 09/26/2024 1:04:36 PM Gender: M Ocean Freight Forwarder: LUIS E Location: [facility] Ref Provider: UMANG NICOLE Quality: Adequate Order Provider: UMANG NICOLE PROCEDURES: Carotid Report: Carotid duplex examination of the extracranial arteries was performed using 2D, color and spectral Doppler. INDICATIONS: S/P Lt CCA-SCA BPG 09/10/22 and I65.23 Occlusion and stenosis of bilateral carotid arteries. HISTORY: Hyperlipidemia. Coronary artery disease S/P [...] mildly elevated velocities at the proximal anastomosis. ATTESTATION: I have reviewed and interpreted the pertinent images and measurements of this study. I attest to the conclusions in the final report that is provided above. Electronically Signed By: Umang Nicole MD [facility] 09/27/2024 10:22:59 AM NEWS DIRECTOR Procedure Note Umang Nicole MD - 09/27/2024 Vascular & Vein Surgery [address] [place] [address] Carotid Duplex Ultrasound Report Patient Name: ELZA SCHERER W : 1945 (79y 2m) Study Date: 09/26/2024 1:04:36 PM Gender: M Ocean Freight Forwarder: LUIS E Location: [facility] Ref Provider: UMANG NICOLE Quality: [...] By: MD IMELDA Gastelum 09/27/2024 10:22:59 AM NEWS DIRECTOR us Umang Nicole MD IMG US PROCEDURES Final Result * US Duplex Scan Aorta, IVC Iliac Complete (09/26/2024 2:37 PM NEWS DIRECTOR) LV EF % CONS SCIMAGE Anatomical Region Laterality Modality Vascular N/A Ultrasound 09/26/2024 1:36 PM NEWS DIRECTOR Narrative 09/27/2024 10:22 AM NEWS DIRECTOR Vascular & Vein Surgery [address] [place] [address] Abdominal Aortic Duplex Ultrasound Report Patient Name: ELZA SCHERER W : 1945 Study Date: 09/26/2024 1:36:32 PM Gender: M Ocean Freight Forwarder: Location: [facility] Ref Provider: UMANG NICOLE Quality: Adequate Order Provider: UMANG NICOLE PROCEDURES: Arterial Report: Duplex ultrasound imaging of the abdominal aorta. INDICATIONS: I71.43 Infrarenal abdominal aortic aneurysm, without rupture. HISTORY: Hyperlipidemia. Coronary artery disease S/P stent. Former smoker. COMPARISONS: The previous exam was completed on 10/14/23. MEASUREMENTS: Velocities Value Diameters Value Aorta Prx PSV 67.00 cm/sec Aorta Prx AP Dim 2.99 cm Aorta Mid PSV 58.00 cm/sec Aorta Prx Trans Dim 2.27 cm Aorta Dst PSV 50.00 cm/sec Aorta Mid AP Dim 2.39 cm Rt Com Iliac Prx PSV 160.00 cm/sec Aorta Mid Trans Dim 2.40 cm Lt Com Iliac Prx PSV 173.00 cm/sec Aorta Dst AP Dim 4.04 cm Aorta Dst Trans Dim 3.89 cm [...] above. Electronically Signed By: Umang Nicole MD [facility] 09/27/2024 10:21:44 AM NEWS DIRECTOR Procedure Note Umang Nicole MD - 09/27/2024 Vascular & Vein Surgery [address] [place] [address] Abdominal Aortic Duplex Ultrasound Report Patient Name: ELZA SCHERER W : 1945 Study Date: 09/26/2024 1:36:32 PM Gender: M Ocean Freight Forwarder: LUIS E Location: [facility] Provider: UMANG NICOLE Quality: Adequate Order Provider: [...] Umang Nicole MD B 09/27/2024 10:21:44 AM NEWS DIRECTOR us Umang Nicole MD IM US PROCEDURES Final Result * US Arterial Doppler Lower Extremity Bilateral (09/26/2024 2:37 PM NEWS DIRECTOR) LV EF % CONS SCIMAGE Anatomical Region Laterality Modality Vascular Bilateral Ultrasound 09/26/2024 12:5 2 PM NEWS DIRECTOR Narrative 09/27/2024 10:20 AM NEWS DIRECTOR Vascular & Vein Surgery [address] [place] [address] Lower Extremity Arterial Doppler Report Patient Name: ELZA SCHERER W : 1945 Study Date: 09/26/2024 12:52:00 PM Gender: M Ocean Freight Forwarder: Ember Bazzi RVT Location: [facility] Ref Provider: UMANG NICOLE Quality: Adequate Order Provider: UMANG NICOLE PROCEDURES: Arterial Report: Bilateral lower extremity arterial Doppler exam at rest. INDICATIONS: I70.219 Atherosclerosis of [place] arteries of extremities with intermittent claudication, unspecified extremity and R09.89 Other specified symptoms and signs involving the circulatory and respiratory systems. HISTORY: Hyperlipidemia. Coronary artery disease S/P stent. Former smoker. COMPARISONS: The previous exam was completed on 10/14/23. Compared to prior there is slight improvement on the right, no significant change on the left. MEASUREMENTS: Right Value Left Value Rt Brachial Pressure 144 mmHg Lt Brachial Pressure 129 mmHg Rt Low Thigh Pressure 108 mmHg Lt Low Thigh Pressure 154 mmHg Rt Calf Pressure 106 mmHg Lt Calf Pressure 128 mmHg Rt LIGHT INDUSTRIAL Pressure 106 mmHg Lt LIGHT INDUSTRIAL Pressure 108 mmHg Rt DPA Pressure 122 [...] bilaterally at the level of infrapopliteal arteries. ATTESTATION: I have reviewed and interpreted the pertinent images and measurements of this study. I attest to the conclusions in the final report that is provided above. Electronically Signed By: Umang Nicole MD [facility] 09/27/2024 10:20:20 AM NEWS DIRECTOR Procedure Note Umang Nicole MD - 09/27/2024 Vascular & Vein Surgery [address] [facility] [place] [address] Lower Extremity Arterial Doppler Report Patient Name: ELZA SCHERER W : 1945 Study Date: 09/26/2024 12:52:00 PM Gender: M Ocean Freight Forwarder: Ember Bazzi RVT Location: [facility] Ref Provider: UMANG NICOLE Quality: Adequate Order Provider: UMANG NICOLE PROCEDURES: Arterial Report: Bilateral lower extremity arterial Doppler exam at rest. INDICATIONS: I70.219 Atherosclerosis of [place] arteries of extremities withintermittent claudication, unspecified extremity [...] mmHg Lt Calf Pressure 128 mmHg Rt LIGHT INDUSTRIAL Pressure 106 mmHg Lt LIGHT INDUSTRIAL Pressure 108 mmHg Rt DPA Pressure 122 [...] above. Electronically Signed By: Umang Nicole MD [facility] 09/27/2024 10:20:20 AM NEWS DIRECTOR Umang Nicole MD IMG US PROCEDURES Final Result * Imaging Cervical/Thoracic Facet Medial Branch Block Bilateral (69440) (08/23/2024 3:32 PM NEWS DIRECTOR) Narrative RAD_PACS_[facility] - 08/23/2024 3:33 PM NEWS DIRECTOR The images from this study are not interpreted by Radiology. Please refer to the physician's procedure / OR operative note. Addison Winchester NP IMG PAIN MGMT PROCEDURES Janis l Result RAD_PACS_[facility] * CTA Abdomen Pelvis (08/23/2015 12:00 AM NEWS DIRECTOR) Anatomical Region Laterality Modality Body N/A Computed Tomogra phy 08/23/2015 Narrative 08/24/2015 2:36 PM NEWS DIRECTOR PROCEDURE: CTA ABDOMEN PELVIS WITHOUT AND WITH CONTRAST WITH 3-D VOLUMETRIC RECONSTRUCTIONS HISTORY: AAA for further evaluation TECHNIQUE: Initial noncontrasted CT of abdomen pelvis was performed. Subsequently contrast enhanced helical CT of the abdomen and pelvis was performed. 100 ml of Omnipaque-350 was administered uneventfully via the right antecubital vein. Imaging was performed on arterial and venous phase. Reformatted coronal sat images were obtained and reviewed. Dedicated 3-D volumetric reconstruction images were obtained and reviewed. COMPARISON: CTA FINDINGS: Noncontrasted phase: There is scattered moderate calcific atherosclerosis. No definite evidence of intramural hematoma. Arterial phase: The distal abdominal aorta is patent. The celiac axis is widely patent and demonstrates normal trifurcation. The SMA is widely patent. The GIULIANA is widely patent. There is a single widely patent renal artery on the right side. There are 2 renal arteries to the left kidney with an accessory renal artery supplying the lower pole. Scattered areas of mild mural plaque is seen. There is aneurysmal dilatation of the infrarenal abdominal aorta immediately proximal to its bifurcation measuring a maximum of 3.2 cm (coronal image 85). There is additional aneurysmal dilatation of the left [...] suggestive of early fibrotic change Liver/Gallbladder/Bile Ducts: No focal liver lesions are identified. There are no radiopaque gallstones. There is no bile duct dilatation. Spleen/Pancreas/Kidneys/Adrenal Glands: The spleen, pancreas, kidneys, and adrenal glands are normal. Lymph Nodes/Peritoneum/Mesentery/Omentum: There is no upper abdominal free fluid, free air, or lymph node enlargement. Stomach and Bowel: No evidence of a bowel obstruction Body Wall: No significant osseous or soft tissue abnormalities are identified. Support Devices: None. CT PELVIS FINDINGS: Bladder: No focal abnormalities are identified. Prostate Gland/Seminal Vesicles: No focal abnormalities are identified. Lymph Nodes/Peritoneum/Mesentery/Omentum: There is no pelvic free fluid, free air, or lymph node enlargement. Bowel: Extensive uncomplicated diverticulosis Body Wall: No significant osseous or soft tissue abnormalities are identified. Support Devices: None. COMBINED CONCLUSIONS: Aneurysmal dilatation [...] Caceres M.D. JA:kellie 08:39 AM 09:18 AM [facility] [[facility]] Procedure Note Provider, MD [...] Caceres M.D. JA:kellie 08:39 AM 09:18 AM [facility] [[facility]] Kali Hurd MD IM CT PROCEDURES Final Re sult from Last 3 Months or Most Recently Relevant to Health Maintenance Insurance MEDICARE SOLUTIONS [facility] MEDICARE MEDICARE BLUE [place] MEDICARE SOLUT[place] MEDICARE BLUE [place] Advance Directives For more information, please contact: [phone] Documents on File Type Date Recorded Patient Employment Legal Assistant Expl anation ADVANCE DIRECTIVE 02/01/2023 5:39 AM Power of Local [employer] * Full Code (Latest Code Status on File) Date Activated Date Inactivated Comments 09/10/2022 2:23 PM 09/12/2022 7:46 PM * Full Code Date Activated Date Inactivated Comments 05/22/2021 10:58 AM 05/23/2021 4:51 AM * Full Code Date Activated Date Inactivated Comments 01/13/2019 7:44 PM 01/15/2019 6:40 PM * Full Code Date Activated Date Inactivated Comments 12/15/2018 1:24 PM 12/16/2018 4:52 AM Care Teams Oncology Physician Assistant Relationship Specialty Start Date End Date Alejandro Flynn MD [address] [place] [address] PCP - General Internal Medicine 07/09/22 Richard Craft MD [address] [place] [address] Consulting Physician Cardiology 09/07/22 Jacob Aragon MD [address] [place] [address] Consulting Physician Vascular Surgery 09/12/22 [place] [address] [facility] [address] [place] [address] Nurse Practitioner Pain Management 09/06/24
--- OUTSIDE RECORDS SUMMARY | 2024-10-31 15:56 | XMS_ITS | Encounter Summary ---
Author Organization [facility] Care Team Providers Care Snuff Box Finisher Name Role Phone Pepper Encarnacion MD Primary Care Provider + Pepper Encarnacion MD Primary Care Provider + Amanda Patton RN Unavailable Unavailab Alejandro Fry MD Primary Care Provider Richard Craft MD Unavailable [phone] Jacob Aragon MD Unavailable [phone] Addison Winchester NP Unavailable [phone] Encounter Details Date Type Department Care Team (Latest Contact Info) Description 08/17/2016 Orders Only [facility] ProviderRadames MD [address] [place] [id number] Social History Tobacco Use Types Packs/Day Years Used Date Smoking Tobacco: Never Assessed Comments:Smoking History Pac ks/day: 0 Packs Alcohol Use Standard Drinks/Week Comments Yes 0 (1 standard drink = 0.6 oz pur e alcohol) Sex and Gender Information Value Date Recorded Sex Assigned at Not on file Legal Sex Male 1:58 AM [facility] Gender Identity Not on file Sexual Orientation Not on file documented as of this encounter Plan of Treatment Not on file documented as of this encounter Procedures Procedure Name Priority Date/Time Associated Diagnosis Comments CARDIOLOGY REPORT 08/19/2016 12: 00 AM [facility] documented in this encounter Results * CARDIOLOGY REPORT (08/19/2016 12:00 AM [facility]) Anatomical Region Laterality Modality Other Narrative 08/19/2016 12:00 AM [facility] Ordered by an unspecified provider. us Historical Provider [facility] [place] [place] Final Result documented in this encounter Visit Diagnoses Not on filedocumented in this encounter Care Teams Snuff Box Finisher Relationship Specialty Start Date End Date Pepper Encarnacion MD PCP - General 11/04/16 07/08/22 Pepper Encarnacion MD PCP - General 06/16/16 11/03/16 Alejandro Flynn MD [address] [place] [address] PCP - General Internal Medicine 07/09/22 Amanda Patton, LENORA Registered Nurse 06/01/19 2 Richard Craft MD [address] [place] [address] Consulting Physician Cardiology 09/07/22 Jacob Aragon MD [address] [facility] [address] [place] [address] Consulting Physician Vascular Surgery 09/12/22 [place] [address] [facility] [address] [place] [address] Nurse Practitioner Pain Management 09/06/24 documented as of this encounter
--- OUTSIDE RECORDS SUMMARY | 2024-10-31 15:56 | XMS_ITS | Encounter Summary ---
Author Organization [facility] Address [address] [place] [address] Care Team Providers Care Patient Escort Name Role Phone Alejandro Flynn MD Primary Care Provider + Encounter Details Date Type Department Care Team (Latest Contact Info) Description 10/12/2007 Inpatient Historical HIS CARDIAC PCU Richard Craft MD [address] [facility] [address] [place] [address] Acute, but Ill-Defined, Cerebrovascular Disease Social History Tobacco Use Types Packs/Day Years Used Date Smoking Tobacco: Never Assessed Sex and Gender Information Value Date Recorded Sex Assigned at Not on file Legal Sex Male 5:30 AM MATERIAL REQUIREMENTS PLANNING MANAGER Gender Identity Not on file Sexual Orientation Not on file documented as of this encounter Plan of Treatment Upcoming Encounters Date Type Department Care Team (Late st Contact Info) Description 11/07/2024 9:15 AM MATERIAL REQUIREMENTS PLANNING MANAGER Appointment [facility] Nuclear Medicine [address] [place] [phone] [id number] Jose Armando Carroll MD [address] [facility] [address] [place] [address] documented as of this encounter Procedures Procedure Name Priority Date/Time Associated Diagnosis Comments CK TOTAL, RELATIVE INDEX Routine 10/14/2007 5:25 AM MATERIAL REQUIREMENTS PLANNING MANAGER CKMB W/REFLEX CK Routine 10/14/2007 5:25 AM MATERIAL REQUIREMENTS PLANNING MANAGER TROPONIN (W/REFLEX CKMB/CK) Routine 10/14/2007 5:25 AM MATERIAL REQUIREMENTS PLANNING MANAGER CBC WITH DIFFERENTIAL Routine 10/14/2007 5:25 AM MATERIAL REQUIREMENTS PLANNING MANAGER CBC WITH DIFFERENTIAL Routine 10/14/2007 5:25 AM MATERIAL REQUIREMENTS PLANNING MANAGER BASIC METABOLIC PANEL Routine 10/14/2007 5:25 AM MATERIAL REQUIREMENTS PLANNING MANAGER CK TOTAL, RELATIVE INDEX Routine 10/13/2007 1:56 PM MATERIAL REQUIREMENTS PLANNING MANAGER CKMB W/REFLEX CK Routine 10/13/2007 1:56 PM MATERIAL REQUIREMENTS PLANNING MANAGER TROPONIN (W/REFLEX CKMB/CK) Routine 10/13/2007 1:56 PM MATERIAL REQUIREMENTS PLANNING MANAGER CK TOTAL, RELATIVE INDEX Routine 10/13/2007 12:40 PM MATERIAL REQUIREMENTS PLANNING MANAGER CKMB W/REFLEX CK Routine 10/13/2007 12:4 0 PM MATERIAL REQUIREMENTS PLANNING MANAGER TROPONIN (W/REFLEX CKMB/CK) Routine 10/13/2007 12:40 PM MATERIAL REQUIREMENTS PLANNING MANAGER CBC WITH DIFFERENTIAL Routine 10/13/2007 11:00 AM MATERIAL REQUIREMENTS PLANNING MANAGER CBC WITH DIFFERENTIAL Routine 10/13/2007 11:00 AM MATERIAL REQUIREMENTS PLANNING MANAGER CK TOTAL, RELATIVE INDEX Routine 10/13/2007 4:28 AM MATERIAL REQUIREMENTS PLANNING MANAGER CKMB W/REFLEX CK Routine 10/13/2007 4:28 AM MATERIAL REQUIREMENTS PLANNING MANAGER TROPONIN (W/REFLEX CKMB/CK) Routine 10/13/2007 4:28 AM MATERIAL REQUIREMENTS PLANNING MANAGER CBC WITH DIFFERENTIAL Routine 10/13/2007 4:28 AM MATERIAL REQUIREMENTS PLANNING MANAGER CBC WITH DIFFERENTIAL Routine 10/13/2007 4:28 AM MATERIAL REQUIREMENTS PLANNING MANAGER PROTIME-INR Routine 10/13/2007 4:28 AM MATERIAL REQUIREMENTS PLANNING MANAGER PHOSPHORUS Routine 10/13/2007 4:28 AM MATERIAL REQUIREMENTS PLANNING MANAGER MAGNESIUM LEVEL Routine 10/13/2007 4:28 AM MATERIAL REQUIREMENTS PLANNING MANAGER LIPID PANEL Routine 10/13/2007 4:28 AM MATERIAL REQUIREMENTS PLANNING MANAGER BASIC METABOLIC PANEL Routine 10/13/2007 4:28 AM MATERIAL REQUIREMENTS PLANNING MANAGER PT AND APTT Routine 10/12/2007 2:10 PM MATERIAL REQUIREMENTS PLANNING MANAGER CBC WITH DIFFERENTIAL Routine 10/12/2007 2:10 PM MATERIAL REQUIREMENTS PLANNING MANAGER CBC WITH DIFFERENTIAL Routine 10/12/2007 2:10 PM MATERIAL REQUIREMENTS PLANNING MANAGER PHOSPHORUS Routine 10/12/2007 2:10 PM MATERIAL REQUIREMENTS PLANNING MANAGER MAGNESIUM LEVEL Routine 10/12/2007 2:10 PM MATERIAL REQUIREMENTS PLANNING MANAGER COMPREHENSIVE METABOLIC PANEL Routine 10/12/2007 2:10 PM MATERIAL REQUIREMENTS PLANNING MANAGER CK TOTAL, RELATIVE INDEX Routine 10/12/2007 1:00 PM MATERIAL REQUIREMENTS PLANNING MANAGER CKMB W/REFLEX CK Routine 10/12/2007 1:00 PM MATERIAL REQUIREMENTS PLANNING MANAGER TROPONIN (W/REFLEX CKMB/CK) Routine 10/12/2007 1:00 PM MATERIAL REQUIREMENTS PLANNING MANAGER documented in this encounter Results * CBC WITH DIFFERENTIAL (10/14/2007 5:25 AM MATERIAL REQUIREMENTS PLANNING MANAGER) NEUTROPHILS 55 45 - 70 % INTERFAC [...] 0.20 K/uL INTERFACE SYSTEM 10/14/2007 5:25 AM MATERIAL REQUIREMENTS PLANNING MANAGER Pushpa Briones MD HEMATOLOGY ORDERABLES Edited Performing Organization Address City/[facility] Phone Number INTERFACE SYSTEM Refer to clinic/hospital department * (ABNORMAL) CBC WITH DIFFERENTIAL (10/14/2007 5:25 AM MATERIAL REQUIREMENTS PLANNING MANAGER) WBC 9.2 4.0 - 9.8 K/uL INTERFACE [...] 12.4 fL INTERFACE SYSTEM 10/14/2007 5:25 AM MATERIAL REQUIREMENTS PLANNING MANAGER Pushpa Briones MD HEMATOLOGY ORDERABLES Edited Performing Organization Address [facility] Phone Number INTERFACE SYSTEM Refer to clinic/hospital department * CK TOTAL, RELATIVE INDEX (10/14/2007 5:25 AM MATERIAL REQUIREMENTS PLANNING MANAGER) CK 134 10 - 170 U/L INTERFACE SYSTEM CARDIAC RELATIVE INDEX N/A <=4.0 INTERFACE SYSTEM 10/14/2007 5:25 AM MATERIAL REQUIREMENTS PLANNING MANAGER Pushpa Briones MD CHEMISTRY ORDERABLES Edited Performing Organization Address [facility] Co de Phone Number INTERFACE SYSTEM Refer to clinic/hospital department * (ABNORMAL) CKMB W/REFLEX CK (10/14/2007 5:25 AM MATERIAL REQUIREMENTS PLANNING MANAGER) CKMB 9.3(AA) <=6.7 ng/mL INTERFACE SYSTEM Comment:Results called to Ta mmi at 10/14/07 7:50 AM and read back verified. CKMB INTERP See Below INTERFAC E SYSTEM Comment:Elevated CKMB,Consis tent with Myocardial Injury. 10/14/2007 5:25 AM MATERIAL REQUIREMENTS PLANNING MANAGER Pushpa Briones MD CHEMISTRY ORDERABLES Edited Performing Organization Address City/[facility]/ZIP Co de Phone Number INTERFACE SYSTEM Refer to clinic/hospital department * BASIC METABOLIC PANEL (10/14/2007 5:25 AM MATERIAL REQUIREMENTS PLANNING MANAGER) GLUCOSE 96 65 - 99 mg/dL INTERFACE [...] and non- Americans is available on the [facility] Intranet at: [email or web address] Select: Lab Policies and Procedures Select: Reference Ranges - GFR 10/14/2007 5:25 AM MATERIAL REQUIREMENTS PLANNING MANAGER Pushpa Briones MD CHEMISTRY ORDERABLES Edited INTERFACE SYSTEM Refer to clinic/hospital department * (ABNORMAL) TROPONIN (W/REFLEX CKMB/CK) (10/14/2007 5:25 AM MATERIAL REQUIREMENTS PLANNING MANAGER) TROPONIN T 0.57(AA) <=0.03 ng/mL INTERFACE SYSTEM Comment:Persistent abnormal result TROPONIN T INTERP See Below INTERFACE SYSTEM Comment:Elevated Troponin-T, Consistent with Myocardial Injury 10/14/2007 5:25 AM MATERIAL REQUIREMENTS PLANNING MANAGER Result [facility] Pushpa Briones MD CHEMISTRY ORDERABLES Edited Performing Organization Address City/[facility] Co de Phone Number INTERFACE SYSTEM Refer to clinic/hospital department * (ABNORMAL) CK TOTAL, RELATIVE INDEX (10/13/2007 1:56 PM MATERIAL REQUIREMENTS PLANNING MANAGER) CK 276(H) 10 - 170 U/L INTERFACE SYSTEM CARDIAC RELATIVE INDEX 9.9(H) <=4.0 INTERFACE SYSTEM 10/13/2007 1:56 PM MATERIAL REQUIREMENTS PLANNING MANAGER Result [facility] Pushpa Briones MD CHEMISTRY ORDERABLES Edited Performing Organization Address [facility] de Phone Number INTERFACE SYSTEM Refer to clinic/hospital department * (ABNORMAL) CKMB W/REFLEX CK (10/13/2007 1:56 PM MATERIAL REQUIREMENTS PLANNING MANAGER) CKMB 27.4(AA) <=6.7 ng/mL INTERFACE SYSTEM Comment:Persistent abnormal result CKMB INTERP See Below INTERFAC E SYSTEM Comment:Elevated CKMB,Consis tent with Myocardial Injury 10/13/2007 1:56 PM MATERIAL REQUIREMENTS PLANNING MANAGER Result [facility] Pushpa Briones MD CHEMISTRY ORDERABLES Edited Performing Organization Address [facility] de Phone Number INTERFACE SYSTEM Refer to clinic/hospital department * (ABNORMAL) TROPONIN (W/REFLEX CKMB/CK) (10/13/2007 1:56 PM MATERIAL REQUIREMENTS PLANNING MANAGER) TROPONIN T 0.66(AA) <=0.03 ng/mL INTERFACE SYSTEM Comment:Persistent abnormal result TROPONIN T INTERP See Below INTERFACE SYSTEM Comment:Elevated Troponin-T, Consistent with Myocardial Injury 10/13/2007 1:56 PM MATERIAL REQUIREMENTS PLANNING MANAGER Result [facility] Pushpa Briones MD CHEMISTRY ORDERABLES Edited Performing Organization Address City/[facility] Co de Phone Number INTERFACE SYSTEM Refer to clinic/hospital department * (ABNORMAL) CK TOTAL, RELATIVE INDEX (10/13/2007 12:40 PM MATERIAL REQUIREMENTS PLANNING MANAGER) CK 296(H) 10 - 170 U/L INTERFACE SYSTEM CARDIAC RELATIVE INDEX 9.7(H) <=4.0 INTERFACE SYSTEM 10/13/2007 12:4 0 PM MATERIAL REQUIREMENTS PLANNING MANAGER us Helena Maddox MD CHEMISTRY ORDERABLES Edited Performing Organization Address [facility] Phone Number INTERFACE SYSTEM Refer to clinic/hospital department * (ABNORMAL) CKMB W/REFLEX CK (10/13/2007 12:40 PM MATERIAL REQUIREMENTS PLANNING MANAGER) CKMB 28.8(AA) <=6.7 ng/mL INTERFACE SYSTEM Comment:Persistent abnormal result CKMB INTERP See Below INTERFAC E SYSTEM Comment:Elevated CKMB,Consis tent with Myocardial Injury 10/13/2007 12:4 0 PM MATERIAL REQUIREMENTS PLANNING MANAGER us Helena aMddox MD CHEMISTRY ORDERABLES Edited Performing Organization Address [facility] Phone Number INTERFACE SYSTEM Refer to clinic/hospital department * (ABNORMAL) TROPONIN (W/REFLEX CKMB/CK) (10/13/2007 12:40 PM MATERIAL REQUIREMENTS PLANNING MANAGER) TROPONIN T 0.75(AA) <=0.03 ng/mL INTERFACE SYSTEM Comment:Persistent abnormal result TROPONIN T INTERP See Below INTERFACE SYSTEM Comment:Elevated Troponin-T, Consistent with Myocardial Injury 10/13/2007 12:4 0 PM MATERIAL REQUIREMENTS PLANNING MANAGER us Helena Maddox MD CHEMISTRY ORDERABLES Edited Performing Organization Address [facility] Phone Number INTERFACE SYSTEM Refer to clinic/hospital department * (ABNORMAL) CBC WITH DIFFERENTIAL (10/13/2007 11:00 AM MATERIAL REQUIREMENTS PLANNING MANAGER) NEUTROPHILS 64 45 - 70 % INTERFAC [...] K/uL INTERFACE SYSTEM 10/13/2007 11:0 0 AM MATERIAL REQUIREMENTS PLANNING MANAGER [employer] HEMATOLOGY ORDERABLES Edited Performing Organization Address City/[facility] de Phone Number INTERFACE SYSTEM Refer to clinic/hospital department * (ABNORMAL) CBC WITH DIFFERENTIAL (10/13/2007 11:00 AM MATERIAL REQUIREMENTS PLANNING MANAGER) WBC 11.0(H) 4.0 - 9.8 K/uL INTERFACE [...] fL INTERFACE SYSTEM 10/13/2007 11:0 0 AM MATERIAL REQUIREMENTS PLANNING MANAGER [employer] HEMATOLOGY ORDERABLES Edited Performing Organization Address City/[facility] de Phone Number INTERFACE SYSTEM Refer to clinic/hospital department * CBC WITH DIFFERENTIAL (10/13/2007 4:28 AM MATERIAL REQUIREMENTS PLANNING MANAGER) NEUTROPHILS 61 45 - 70 % INTERFAC [...] 0.20 K/uL INTERFACE SYSTEM 10/13/2007 4:28 AM MATERIAL REQUIREMENTS PLANNING MANAGER us Claudia Silva MD HEMATOLOGY ORDERA BLES Edited Performing Organization Address City/[facility]/ZIP Co de Phone Number INTERFACE SYSTEM Refer to clinic/hospital department * (ABNORMAL) CBC WITH DIFFERENTIAL (10/13/2007 4:28 AM MATERIAL REQUIREMENTS PLANNING MANAGER) WBC 9.9(H) 4.0 - 9.8 K/uL INTERFACE [...] 12.4 fL INTERFACE SYSTEM 10/13/2007 4:28 AM MATERIAL REQUIREMENTS PLANNING MANAGER us Claudia Silva MD HEMATOLOGY ORDERA BLES Edited Performing Organization Address City/[facility] Co de Phone Number INTERFACE SYSTEM Refer to clinic/hospital department * (ABNORMAL) CK TOTAL, RELATIVE INDEX (10/13/2007 4:28 AM MATERIAL REQUIREMENTS PLANNING MANAGER) CK 478(H) 10 - 170 U/L INTERFACE SYSTEM CARDIAC RELATIVE INDEX 10.7(H) <=4.0 INTERFACE SYSTEM 10/13/2007 4:28 AM MATERIAL REQUIREMENTS PLANNING MANAGER us Richard Craft MD CHEMISTRY ORDERABLES Edit ed Performing Organization Address City/[facility] de Phone Number INTERFACE SYSTEM Refer to clinic/hospital department * (ABNORMAL) CKMB W/REFLEX CK (10/13/2007 4:28 AM MATERIAL REQUIREMENTS PLANNING MANAGER) CKMB 50.9(AA) <=6.7 ng/mL INTERFACE SYSTEM Comment:Persistent abnormal result CKMB INTERP See Below INTERFAC E SYSTEM Comment:Elevated CKMB,Consis tent with Myocardial Injury 10/13/2007 4:28 AM MATERIAL REQUIREMENTS PLANNING MANAGER us Richard Craft MD CHEMISTRY ORDERABLES Edit ed Performing Organization Address [facility] de Phone Number INTERFACE SYSTEM Refer to clinic/hospital department * PROTIME-INR (10/13/2007 4:28 AM MATERIAL REQUIREMENTS PLANNING MANAGER) PROTIME 13.0 12.7 - 15.1 Seconds INTERFACE SYSTEM INR 1.0 0.9 - 1.1 INTERFACE SYSTEM Comment: INR Therapeutic Range: Adult: 2.0 - 3.0 for pulmonary embolism or prophylaxis against venous thrombosis or systemic embolization. 2.0 - 3.0 for patients with tissue heart valves. 2.5 - 3.5 for patients with mechanical heart valves or post TX. Pediatric (12 years and under): 1.5 - 3.0 Although the target range in children is not well established , INR values of 1.5 - 3.0 are recommended for most patients. Higher values have been used in children with prosthetic cardiac valves and hereditary clotting disorders. (<3 days) therapeutic ranges have not been established. 10/13/2007 4:28 AM MATERIAL REQUIREMENTS PLANNING MANAGER us Claudia Silva MD HEMATOLOGY ORDERA BLES Edited Performing Organization Address [facility] de Phone Number INTERFACE SYSTEM Refer to clinic/hospital department * PHOSPHORUS (10/13/2007 4:28 AM MATERIAL REQUIREMENTS PLANNING MANAGER) PHOSPHORUS 4.3 2.5 - 4.5 mg/dL INTERFACE SYSTEM 10/13/2007 4:28 AM MATERIAL REQUIREMENTS PLANNING MANAGER us Claudia Silva MD CHEMISTRY ORDERAB LES Edited INTERFACE SYSTEM Refer to clinic/hospital department * MAGNESIUM LEVEL (10/13/2007 4:28 AM MATERIAL REQUIREMENTS PLANNING MANAGER) MAGNESIUM 2.4 1.5 - 2.5 mg/dL INTERFACE SYSTEM 10/13/2007 4:28 AM MATERIAL REQUIREMENTS PLANNING MANAGER us Claudia Silva MD CHEMISTRY ORDERAB LES Edited Performing Organization Address [facility] Co de Phone Number INTERFACE SYSTEM Refer to clinic/hospital department * (ABNORMAL) LIPID PANEL (10/13/2007 4:28 AM MATERIAL REQUIREMENTS PLANNING MANAGER) CHOLESTEROL 217(H) 100 - 199 mg/dL INTERFACE SYSTEM TRIGLYCERIDE 203(H) 10 - 149 mg/dL INTERFACE SYSTEM HDL 33(L) 40 - 59 mg/dL INTERFACE SYSTEM CHOL/HDL RATIO 6.6(H) 2.0 - 5.0 INTER FACE SYSTEM LDL CALCULATED 143(H) <=99 mg/dL INTERFACE SYSTEM LIPID PANEL COMMENT See Below INTERFACE SYSTEM Comment: The adult ATP and pediatric NCEP classifications for lipids are available on the [facility] Intranet at: [email or web address] Select: Lab Policies and Procedures,Current Select: Lipid Panel Interpretation 10/13/2007 4:28 AM MATERIAL REQUIREMENTS PLANNING MANAGER us Claudia Silva MD CHEMISTRY ORDERAB LES Edited Performing Organization Address City/[facility]/ZIP Co de Phone Number INTERFACE SYSTEM Refer to clinic/hospital department * BASIC METABOLIC PANEL (10/13/2007 4:28 AM MATERIAL REQUIREMENTS PLANNING MANAGER) GLUCOSE 98 65 - 99 mg/dL INTERFACE [...] and non- Americans is available on the [facility] Intranet at: [email or web address] Select: Lab Policies and Procedures Select: Reference Ranges - GFR 10/13/2007 4:28 AM MATERIAL REQUIREMENTS PLANNING MANAGER us Claudia Silva MD CHEMISTRY ORDERAB LES Edited INTERFACE SYSTEM Refer to clinic/hospital department * (ABNORMAL) TROPONIN (W/REFLEX CKMB/CK) (10/13/2007 4:28 AM MATERIAL REQUIREMENTS PLANNING MANAGER) Pathologist [facility] TROPONIN T 1.43(AA) <=0.03 ng/mL INTERFACE SYSTEM Comment:Persistent abnormal result TROPONIN T INTERP See Below INTERFACE SYSTEM Comment:Elevated Troponin-T, Consistent with Myocardial Injury 10/13/2007 4:28 AM MATERIAL REQUIREMENTS PLANNING MANAGER us Ricahrd Craft MD CHEMISTRY ORDERABLES Edit ed Performing Organization Address City/[facility]/ZIP Co de Phone Number INTERFACE SYSTEM Refer to clinic/hospital department * CBC WITH DIFFERENTIAL (10/12/2007 2:10 PM MATERIAL REQUIREMENTS PLANNING MANAGER) NEUTROPHILS 56 45 - 70 % INTERFAC [...] 0.20 K/uL INTERFACE SYSTEM 10/12/2007 2:10 PM MATERIAL REQUIREMENTS PLANNING MANAGER [employer] HEMATOLOGY ORDERABLES Edited Performing Organization Address City/[facility] de Phone Number INTERFACE SYSTEM Refer to clinic/hospital department * (ABNORMAL) CBC WITH DIFFERENTIAL (10/12/2007 2:10 PM MATERIAL REQUIREMENTS PLANNING MANAGER) WBC 8.2 4.0 - 9.8 K/uL INTERFACE [...] 12.4 fL INTERFACE SYSTEM 10/12/2007 2:10 PM MATERIAL REQUIREMENTS PLANNING MANAGER [employer] HEMATOLOGY ORDERABLES Edited Performing Organization Address [facility] Phone Number INTERFACE SYSTEM Refer to clinic/hospital department * (ABNORMAL) PT AND APTT (10/12/2007 2:10 PM MATERIAL REQUIREMENTS PLANNING MANAGER) PROTIME 13.6 12.7 - 15.1 Seconds INTERFACE SYSTEM INR 1.0 0.9 - 1.1 INTERFACE SYSTEM Comment: INR Therapeutic Range: Adult: 2.0 - 3.0 for pulmonary embolism or prophylaxis against venous thrombosis or systemic embolization. 2.0 - 3.0 for patients with tissue heart valves. 2.5 - 3.5 for patients with mechanical heart valves or post TX. Pediatric (12 years and under): 1.5 - 3.0 Although [...] SYSTEM Comment: PTT Therapeutic Range: Heparin Level PTT (seconds) <0.10 units/mL <53 0.10 - 0.30 units/mL 53 - 67 0.30 - 0.70 units/mL* 67 - 95* 0.70 - 1.00 units/mL 95 - 116 *corresponds to therapeutic range for unfractionated heparin 10/12/2007 2:10 PM MATERIAL REQUIREMENTS PLANNING MANAGER [employer] HEMATOLOGY ORDERABLES Edited Performing Organization Address [facility] Phone Number INTERFACE SYSTEM Refer to clinic/hospital department * PHOSPHORUS (10/12/2007 2:10 PM MATERIAL REQUIREMENTS PLANNING MANAGER) PHOSPHORUS 3.6 2.5 - 4.5 mg/dL INTERFACE SYSTEM 10/12/2007 2:10 PM MATERIAL REQUIREMENTS PLANNING MANAGER [employer] CHEMISTRY ORDERABLES Edited Performing Organization Address [facility] Phone Number INTERFACE SYSTEM Refer to clinic/hospital department * MAGNESIUM LEVEL (10/12/2007 2:10 PM MATERIAL REQUIREMENTS PLANNING MANAGER) MAGNESIUM 2.4 1.5 - 2.5 mg/dL INTERFACE SYSTEM 10/12/2007 2:10 PM MATERIAL REQUIREMENTS PLANNING MANAGER [employer] CHEMISTRY ORDERABLES Edited Performing Organization Address [facility] Phone Number INTERFACE SYSTEM Refer to clinic/hospital department * (ABNORMAL) COMPREHENSIVE METABOLIC PANEL (10/12/2007 2:10 PM MATERIAL REQUIREMENTS PLANNING MANAGER) GLUCOSE 121(H) 65 - 99 mg/dL INTERFACE [...] and non- Americans is available on the [facility] Intranet at: [email or web address] Select: Lab Policies and Procedures Select: Reference Ranges - GFR 10/12/2007 2:10 PM MATERIAL REQUIREMENTS PLANNING MANAGER [employer] CHEMISTRY ORDERABLES Edited Performing Organization Address City/[facility]/ZIP Co de Phone Number INTERFACE SYSTEM Refer to clinic/hospital department * (ABNORMAL) CK TOTAL, RELATIVE INDEX (10/12/2007 1:00 PM MATERIAL REQUIREMENTS PLANNING MANAGER) CK 396(H) 10 - 170 U/L INTERFACE SYSTEM CARDIAC RELATIVE INDEX 11.0(H) <=4.0 INTERFACE SYSTEM 10/12/2007 1:00 PM MATERIAL REQUIREMENTS PLANNING MANAGER Richard Craft MD CHEMISTRY ORDERABLES Edit ed Performing Organization Address [facility]/ZIP Co de Phone Number INTERFACE SYSTEM Refer to clinic/hospital department * (ABNORMAL) CKMB W/REFLEX CK (10/12/2007 1:00 PM MATERIAL REQUIREMENTS PLANNING MANAGER) CKMB 43.7(AA) <=6.7 ng/mL INTERFACE SYSTEM Comment:Results called to de nise at 10/12/07 2:19 PM and read back verified. CKMB INTERP See Below INTERFAC E SYSTEM Comment:Elevated CKMB,Consis tent with Myocardial Injury. 10/12/2007 1:00 PM MATERIAL REQUIREMENTS PLANNING MANAGER us Richard Craft MD CHEMISTRY ORDERABLES Edit ed INTERFACE SYSTEM Refer to clinic/hospital department * (ABNORMAL) TROPONIN (W/REFLEX CKMB/CK) (10/12/2007 1:00 PM MATERIAL REQUIREMENTS PLANNING MANAGER) TROPONIN T 0.42(AA) <=0.03 ng/mL INTERFACE SYSTEM Comment:Results called to de nise at 10/12/07 1:52 PM and read back verified. TROPONIN T INTERP See Below INTERFACE SYSTEM Comment:Elevated Troponin-T, Consistent with Myocardial Injury 10/12/2007 1:00 PM MATERIAL REQUIREMENTS PLANNING MANAGER us Richard Craft MD CHEMISTRY ORDERABLES Edit ed Performing Organization Address [facility] Co de Phone Number INTERFACE SYSTEM Refer to clinic/hospital department documented in this encounter Visit Diagnoses Diagnosis Acute, but ill-defined, cerebrovascular disease documented in this encounter Care Teams Patient Escort Relationship Specialty Start Date End Date Alejandro lFynn MD [address] [place] [address] PCP - General Internal Medicine 10/31/24 documented as of this encounter
--- OUTSIDE RECORDS SUMMARY | 2024-10-31 15:56 | XMS_ITS | Encounter Summary ---
Author Organization [facility] Address [address] [place] [address] Care Team Providers Care Computational Chemist Name Role Phone Pepper Encarnacion MD Primary Care Provider + [phone] Alejandro Flynn MD Primary Care Provider [phone] Spencer Hoyos MD Unavailable Unavailabl e Encounter Details Date Type Department Care Team (Late st Contact Info) Description 10/09/2024 Lab Requisition [facility] - Pathology Lab [address] [place] [address] Joseph Lee MD [address] [facility] [address] [place] [id number] Illness, unspecified Social History Tobacco Use [...] Cytology Routine Illness, unspecified 10/09/2024 2:08 PM MEDICAL CASE WORKER documented as of this encounter Visit Diagnoses Diagnosis Illness, unspecified documented in this encounter Care Teams Computational Chemist Relationship Specialty Start Date End Date Pepper Encarnacion MD [address] [place] [id number] PCP - General 05/30/18 10/15/24 Alejandro Flynn MD [address] [place] [id number] PCP - General Internal Medicine 10/16/24 [place] [address] [address] Referring Physician 10/16/24 documented as of this encounter
--- OUTSIDE RECORDS SUMMARY | 2024-10-31 15:56 | XMS_ITS | Clinical Summary ---
Author Organization [facility] Address [address] [place] [address] Care Team Providers Care Belt Dresser Name Role Phone Alejandro Flynn MD Primary Care Provider [phone] Spencer Hoyos MD Unavailable Unavailabl e Source Comments [facility],non-owned Affiliates and Associated Physician Practices is amultiple site organization consisting of ambulatory clinics and hospital sitesin [place], [place], [place] and [place]. This disclosure is being madepursuant to the Care Everywhere program and may not contain all information available regarding this patient. Last updated 18.[facility] Allergies No known active allergies Medications * [...] (two) capsules by mouth every morning 3 Active trimethoprim (Trimpex) 100 MG tablet Take [...] Active oxyCODONE, immediate release, (Roxicodone) 5 MG tabletIndications :Acute Pain Take 1 (one) tablet by mouth every 8 hours as needed for Pain Reasons: Acute Pain 8 tablet 5 Active pantoprazole EC (Protonix) 40 MG tabletIndications :Gastroesophageal Reflux Disease,Malignant Neoplasm of Esophagus Take 1 (one) tablet by mouth 2 times daily Reasons: Cancer of the Esophagus, Gastroesophageal Reflux Disease 60 tablet 3 5 Active pantoprazole EC (Protonix) 40 MG tablet Take 1 (one) tablet by mouth 2 times daily 10/18/19 25 Discontinue d(Reorder) sucralfate (Carafate) 1 GM/10ML suspensionIndicat ions:Esophagitis Take 10 mL by mouth 4 times daily for 5 days Reasons: Esophagus Inflammation 200 mL 5 10/24/19 25 Encounters Date Type Department Care Team Description 10/19/2024 Orders Only [facility] - [facility] [address] [place] [phone] Vitaly Goodson MD Malignant neoplasm of lower third of esophagus (HCC) ; Esophagitis 10/19/2024 Telephone [facility] - [address] [phone] Rubi Medellin RN General 10/18/2024 11:01 AM ACUTE CARE SURGEON Anesthesia Event [facility] ENDOSCOPY [address] [place] [phone] Sujata Benson MD 10/18/2024 11:00 AM ACUTE CARE SURGEON - 10/18/2024 12:00 PM ACUTE CARE SURGEON Surgery [facility] ENDOSCOPY [address] [place] [phone] Vitaly Goodson MD EUS + Stent 10/18/2024 9:54 AM ACUTE CARE SURGEON - 10/18/2024 2:17 PM ACUTE CARE SURGEON Hospital Encounter [facility] OP [address] [place] [address] Vitaly Goodson MD Surgery General Discharge Disposition: Home or Self Care 10/18/2024 Orders Only [facility] - GI [address] [facility], [place] [phone] Vitaly Goodson MD Other chest pain 10/18/2024 Travel 10/16/2024 Telephone [facility] - GI [address] [facility], [place] [phone] Moo Willett RN Procedure (external referral: EGD + Stent for dysphagia with Dr. Sellers from Dr. Spencer Hoyos f: [phone]) 10/09/2024 Lab Requisition [facility] - Pathology Lab [address] [place] [phone] Joseph Lee MD Illness, unspecified from Last [...] Comments Blood Pressure 148/69 10/18/2024 1:30 PM ACUTE CARE SURGEON Pulse 65 10/18/2024 1:30 PM ACUTE CARE SURGEON Temperature 36 C (96.8 F) 10/18/2024 12:50 PM ACUTE CARE SURGEON Respiratory Rate 10 10/18/2024 1:30 PM ACUTE CARE SURGEON Oxygen Saturation 99% 10/18/2024 1:30 PM ACUTE CARE SURGEON Inhaled Oxygen Concentration - - Weight 63 kg (139 lb) 10/18/2024 10:31 AM ACUTE CARE SURGEON Height 182.9 cm (6') 10/18/2024 10:31 AM ACUTE CARE SURGEON Body Mass Index 18.85 10/18/2024 10:31 AM ACUTE CARE SURGEON Plan of Treatment Health Maintenance Due Date Last Done Comments MEDICARE AWV 12 MONTHS 1945 Opioid Medication Agreement - Annual 1945 Opioid Medication Urine Drug Screening 1945 HEPATITIS C SCREENING 07/12/1964 DTAP/TDAP/TD VACCINES (1 - Tdap) 1965 PNEUMOCOCCAL VACCINE 50+ (1 of 1 - PCV) 1996 ZOSTER VACCINE (1 of 2) 1996 Respiratory Syncytial Virus (RSV) Vaccine Pt: or over 60 yrs (1 - 1-dose 75+ series) 2021 COVID-19 VACCINE ( - 2023-2 5 season) 2024 INFLUENZA VACCINE (#1) 2024 , 08/23/2019, 06/30/2018 DEPRESSION SCREENING 09/20/2024 MEDICARE AWV CALENDAR YEAR 2024 HEPATITIS B VACCINE Aged [...] this topic Medical Devices Implanted Type Area Bioinformatics Computer Scientist Device Identifier Shelf Expiration Date Model / Serial / Lot Esophageal Tts Stent 22mm X 150mm Implanted:Qty: 1 on 10/18/2024 by Vitaly Goodson MD at [facility] N/A: Esophagus 03/28/2026 [id number] / [id number] / [id number] Description:[employer] Esophageal Stent 22mm x 150mm Procedures Procedure Name Priority Date/Time Associated Diagnosis Comments ENDOTRACHEAL TUBE NOTE Routine 10/18/2024 11:14 AM ACUTE CARE SURGEON NC ENDOSCOPIC ULTRASOUND EXAM 10/18/2024 10:56 AM ACUTE CARE SURGEON Dysphagia, unspecified type CBC W/O DIFFERENTIAL Routine 10/18/2024 10:41 AM ACUTE CARE SURGEON Pre-op exam BASIC METABOLIC PANEL (CALCIUM TOTAL) Routine 10/18/2024 10:41 AM ACUTE CARE SURGEON Pre-op evaluation ENDOSCOPIC ULTRASONOGRAPHY, GI Routine 10/18/2024 10:31 AM ACUTE CARE SURGEON EKG 12-LEAD Routine 10/18/2024 10:19 AM ACUTE CARE SURGEON Pre-op evaluation from Last 3 Months Results * ETT LINE PERFORMABLE (10/18/2024 11:14 AM ACUTE CARE SURGEON) Narrative Sapna Ojeda APRN-CRNA - 10/18/2024 11:14 AM ACUTE CARE SURGEON Sapna Ojeda APRN-CRNA 10/18/2024 11:16 AM Endotracheal Tube Placement: Intubation Event Date/Time: 10/18/2024 11:08 AM Procedure: intubation ([id number]) Procedure Section: Sedation: under general anesthesia. Indications for Airway Management: anesthesia Procedure pretreatments used? No Induction: standard IV Patient Position: sniffing and supine Mask Ventilation: easy with oral [...] ETT in proper place. Tube secured with: adhesive tape. Dentition unchanged? Yes Difficult Airway? No. Procedure Start Time: 10/18/2024 11:08 AM. Staff Section Anesthesia Provider: Sapna Ojeda APRN-CRNA, Performed the procedure Sujata Benson MD GENERAL ANESTHESIA O RDERABLES * (ABNORMAL) CBC W/O DIFFERENTIAL (10/18/2024 10:41 AM [facility]) WBC 7.4 4.0 - 10.7 x10E9/L 10/18/2024 10:[address] [facility] RBC Count 3.86(L) 4.30 - 5.80 x10E12/L 10/18/2024 10:[address] [facility] Hemoglobin 12.0(L) 13.3 - 17.5 g/dL 10/18/2024 10:57 AM [facility] Hematocrit 36.0(L) 38.7 - 51.1 % 10/18/2024 10:[address] [facility] MCV 93.3 80.0 - 98.0 fL 10/18/2024 10:57 AM [facility] MCH 31.1 26.7 - 33.6 pg 10/18/2024 10:57 AM [facility] MCHC 33.3 31.7 - 36.3 g/dL 10/18/2024 10:57 AM [facility] RDW-CV 12.2 11.3 - 14.8 % 10/18/2024 10:57 AM [facility] Platelet Count 290 150 - 420 x10E9/L 10/18/2024 10:57 AM [facility] MPV 9.7 7.8 - 11.4 fL 10/18/2024 10:57 AM [facility] Blood BLOOD SPECIMEN / Unknown Venipuncture / Unknown 10/18/2024 10:41 AM ACUTE CARE SURGEON 10/18/2024 10:48 AM ACUTE CARE SURGEON Sujata Benson MD LAB - HEMATOLOGY ORD ERABLES Performing Organization Address [facility] Co de Phone Number [address] [phone] [phone] * (ABNORMAL) BASIC METABOLIC PANEL (CALCIUM TOTAL) (10/18/2024 10:41 AM [facility]) BUN 23 7 - 26 mg/dL 10/18/2024 11:20 AM [facility] Creatinine 0.81 0.71 - 1.16 mg/dL 10/18/2024 11:20 AM [facility] Sodium 138 136 - 145 mmol/L 10/18/2024 11:20 AM [facility] Potassium 3.7 3.5 - 4.5 mmol/L 10/18/2024 11:20 AM [facility] Chloride 102 98 - 107 mmol/L 10/18/2024 11:20 AM [facility] CO2 26 22 - 29 mmol/L 10/18/2024 11:20 AM [facility] Glucose 93 70 - 99 mg/dL 10/18/2024 11:20 AM [facility] Calcium 9.6 8.4 - 10.2 mg/dL 10/18/2024 11:20 AM ACUTE CARE SURGEON [facility] Anion Gap 10 6 - 16 10/18/2024 11:20 AM [facility] BUN/Creatinine Ratio 28(H) 7 - 23 10/18/2024 11:20 AM [facility] Osmolality Calculated 289 275 - 295 mOsm/kg 10/18/2024 11:20 AM [facility] eGFR by CKD-EPI 90 >=90 mL/min/1.7 3 m2 10/18/2024 11:20 AM [facility] Blood BLOOD SPECIMEN / Unknown Venipuncture / Unknown 10/18/2024 10:41 AM ACUTE CARE SURGEON 10/18/2024 10:48 AM ACUTE CARE SURGEON Sujata Benson MD LAB - CHEMISTRY [facility] Organization Address City/State/ZIP Co de Phone Number [facility] [address] [place] [phone], [facility] [phone] * Endoscopic Ultrasonography, GI (10/18/2024 10:31 AM ACUTE CARE SURGEON) Report Endoscopy POC Endoscopy Department Report _ Patient Name: Gregory Scherer Procedure Date: 10/18/2024 10:31 AM Date of : 1945 Classification: Outpatient Gender: Male Ethnicity: Not or Race: White _ Providers: Vitaly Guilloyr MD Referring MD: Spencer Hoyos MD; Jud Rutherford APRN; Alejandro Flynn MD Procedure: Upper EUS Indications: Staging of esophageal adenocarcinoma, Dysphagia Medications: Monitored Anesthesia Care. See the Anesthesia note for documentation of the administered medications. Patient Profile: 79M presents as direct access referral for EGD/EUS and possible esophageal stent placement. 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 09/2024 CT C/A/P w/c: Distal esophageal wall thickening, suspected hepatic metastases. Description of Procedure: After obtaining informed consent, the endoscope was passed under direct vision. Throughout the procedure, the patient's blood pressure, pulse, and oxygen saturations were monitored continuously. A therapeutic gastroscope was introduced through the mouth, and advanced to the lower third of esophagus. An ultraslim scope was introduced through the mouth, and advanced to the second portion of the duodenum. A radial array echoendoscope was introduced through the mouth, and advanced to the lower third of esophagus. The upper EUS was accomplished without difficulty. The patient tolerated the procedure well. Findings: ENDOSCOPIC FINDING: : The esophagus, esophagogastric junction and gastric cardia were carefully examined. 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 A large circumferential nearly completely obstructing mass was seen arising within the suspected Martin's segment, consistent with known adenocarcinoma, extending from 37 to 45 cm from the incisors (EG junction at 42 cm) with extensive involvement of the gastric cardia on retroflexed examination. The mass could only be traversed with an ultraslim endoscope. Findings not amenable to endoscopic gastrostomy tube placement due to the degree of luminal narrowing. After endosonographic examination as noted below, the decision was made to proceed with enteral stent placement. A long 0.035 inch Jagwire was advanced through the ultraslim endoscope and coiled in the stomach under direct endoscopic visualization. The scope was withdrawn over the guidewire. A therapeutic endoscope was advanced over the guidewire. A 22 mm x 150 mm esophageal fully covered metal stent (Taewoon) was placed across the area of narrowing under endoscopic and fluoroscopic guidance. The stent appeared in adequate position, extending from the mid esophagus to the proximal gastric body. The decision was made to anchor the proximal stent phlange in place via the use of an ezej-fos-kiwvc clip (StentFix, StrikeIron) to reduce the risk of migration. Good clip placement was noted. There was no evidence of bleeding or perforation at the end of the procedure. The remainder of the stomach was normal appearing. The examined duodenum was normal appearing. ENDOSONOGRAPHIC FINDING: : The esophagus and adjacent structures were examined endosonographicall y. A large hypoechoic obstructing mass was found in the lower third of the esophagus. The exam was limited by inability to advance the echoendoscope through the area or narrowing. The endosonographic borders were poorly-defined. There was sonographic evidence suggesting invasion through the muscularis propria. At least two malignant appearing lymph nodes measuring up to 12 mm, were visualized in the immediate para-esophageal mediastinum. The nodes were round, hypoechoic and had well-defined margins. Estimated Blood Loss: Estimated blood loss was minimal. Complications: No immediate complications. 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 Endosonographic staging consistent with at least T3N1Mx disease (exam limited by inability to pass the echoendoscope through the area of narrowing). - One 22 mm x 150 mm esophageal fully covered metal stent (Taewoon) placed across the area of narrowing, and proximally anchored via use of an askn-ibr-xohvo clip (StentFix, OVESCO MR conditional). Moderate Sedation: GA. Recommendation: - Monitor for fevers, pain, signs of bleeding, or recurrent difficulty swallowing. - Start clear liquid diet this evening, then advanced to soft diet as tolerated tomorrow. - Have small meals, can increase frequency if needed to maintain caloric intake. - Chew all food thoroughly. Consumed food should be soft, moist and easily swallowed. Eat slowly and take small bites. - Remain in an upright position at least 60 minutes after meals. - Maintain the head of bed elevated at all times given risk of aspiration. - Take proton pump inhibitor antacid therapy with Pantoprazole (Protonix) 40 mg orally twice daily. - Take Tramadol as needed for pain for 5 days. - Follow-up with Oncology regarding management of known cancer. - If recurrent persistent difficulty swallowing, present to ER. Note findings not amenable to endoscopic gastrostomy tube placement. - The potential complications and concerning symptoms/findings, including but not limited to early or delayed fevers, infection, pain, aspiration, bleeding, perforation, stent obstruction and migration, were discussed with the patient/caregiver. Emergency contact information was provided. Attending Participation: I personally performed the entire procedure. Procedure Code(s): --- Professional --- 87433, Esophagoscopy, flexible, transoral; with placement of endoscopic stent (includes pre- and post-dilation and guide wire passage, when performed) 49553, Esophagoscopy, flexible, transoral; with endoscopic ultrasound examination 68129, 59, Fluoroscopy (separate procedure), up to 1 hour physician or other qualified health morning caregiver time Diagnosis Code(s): --- Professional --- K22.89, Other specified disease of esophagus C15.9, Malignant neoplasm of esophagus, unspecified R13.10, Dysphagia, unspecified CPT copyright 2021 [employer]. All rights reserved. The codes documented in this report are preliminary and upon medical record coder review may be revised to meet current compliance requirements. Vitaly Guillory MD 10/18/2024 12:24:47 PM Note Initiated On: 10/18/2024 10:31 AM Number of Addenda: [address] [address] [facility] 10/18/2024 10:3 1 AM ACUTE CARE SURGEON Vitaly Guillory MD GI PROCEDURE ORDERABLES [facility] * EKG 12-LEAD (10/18/2024 10:19 AM ACUTE CARE SURGEON) Ventricular Rate 64 BPM [facility] Atrial Rate 64 BPM [facility] P-R Interval 150 ms [facility] QRS Duration ms 134 ms [facility] Q-T Interval ms 430 ms [facility] QTC Calculation (Bezet) 443 ms [facility] Calculated P [place] 53 degrees [facility] Calculated R [place] -42 degrees [facility] Calculated T [place] 88 degrees [facility] Interpretation EKG SINUS RHYTHM WITH PREMATURE ATRIAL COMPLEXES LEFT AXIS DEVIATION NON-SPECIFIC INTRA-VENTRIC ULAR CONDUCTION BLOCK MINIMAL VOLTAGE CRITERIA FOR LVH, MAY BE NORMAL VARIANT ( Gonzalez product ) ABNORMAL ECG NO PREVIOUS ECGS AVAILABLE Confirmed by RAISSA VILLANUEVA, SERAFINREEVES ([id number]) on 10/28/2024 11:25:47 AM [facility] M[facility] 10/18/2024 10:1 9 AM ACUTE CARE SURGEON 10/28/2024 11:25 AM ACUTE CARE SURGEON Sujata Benson MD ECG ORDERABLES [facility] LILLY from Last 3 Months Care Teams Belt Dresser Relationship Specialty Start Date End Date Alejandro Flynn MD [address] [facility] [place] [address] PCP - General Internal Medicine 10/16/24 [place] [address] [address] Referring Physician 10/16/24
--- OUTSIDE RECORDS SUMMARY | 2024-10-31 15:56 | XMS_ITS | Patient Health Summary ---
Author Organization [facility] Address [address] [place] [address] Care Team Providers Care Salicylic Acid Blender Name Role Phone Alejandro Flynn MD Primary Care Provider [phone] Spencer Hoyos MD Unavailable Unavailabl e Note from [facility],non-owned Affiliates and Associated Physician Practices is amultiple site organization consisting of ambulatory clinics and hospital sitesin [place], [place], [place] and [place]. This disclosure is being madepursuant to the Care Everywhere program and may not contain all information available regarding this patient. Last updated 18.[facility] Allergies No known active allergies Medications [...] Gastroesophageal Reflux Disease 3 refills by 10/18/2025 Ended Medications* pantoprazole EC (Protonix) 40 MG tablet(Discontinued) Take 1 (one) tablet by mouth 2 times daily * sucralfate (Carafate) 1 GM/10ML suspension(Started 10/19/2024)() Take 10 mL by mouth 4 times daily for 5 days Reasons: Esophagus Inflammation Social History Tobacco Use Types Packs/Day Years [...] Comments Blood Pressure 148/69 10/18/2024 1:30 PM CLOSING AGENT Pulse 65 10/18/2024 1:30 PM CLOSING AGENT Temperature 36 C (96.8 F) 10/18/2024 12:50 PM CLOSING AGENT Respiratory Rate 10 10/18/2024 1:30 PM CLOSING AGENT Oxygen Saturation 99% 10/18/2024 1:30 PM CLOSING AGENT Inhaled Oxygen Concentration - - Weight 63 kg (139 lb) 10/18/2024 10:31 AM CLOSING AGENT Height 182.9 cm (6') 10/18/2024 10:31 AM CLOSING AGENT Body Mass Index 18.85 10/18/2024 10:31 AM CLOSING AGENT Medical Devices Implanted Type Area Auto Damage Insurance Appraiser Device Identifier Shelf Expiration Date Model / Serial / Lot Esophageal Tts Stent 22mm X 150mm Implanted:Qty: 1 on 10/18/2024 by Vitaly Goodson MD at [facility] N/A: Esophagus 03/28/2026 [id number] / [id number] / [id number] Description:[employer] Esophageal Stent 22mm x 150mm Procedures * ENDOTRACHEAL TUBE NOTE(Performed 10/18/2024) * AL ENDOSCOPIC ULTRASOUND EXAM(Performed 10/18/2024) Performed for Dysphagia, unspecified type * CBC W/O DIFFERENTIAL(Performed 10/18/2024) Performed for Pre-op exam * BASIC METABOLIC PANEL (CALCIUM TOTAL)(Performed 10/18/2024) Performed for Pre-op evaluation * ENDOSCOPIC ULTRASONOGRAPHY, GI(Performed 10/18/2024) * EKG 12-LEAD(Performed 10/18/2024) Performed for Pre-op evaluation * DERMATOPATHOLOGY(Performed 05/19/2021) * DERMATOPATHOLOGY(Performed 03/15/2017) * DERMATOPATHOLOGY(Performed 03/01/2017) Results * ETT LINE PERFORMABLE (10/18/2024 11:14 AM CLOSING AGENT) Narrative Sapna Ojeda APRN-CRNA - 10/18/2024 11:14 AM CLOSING AGENT Sapna Ojeda APRN-CRNA 10/18/2024 11:16 AM Endotracheal Tube Placement: Intubation Event Date/Time: 10/18/2024 11:08 AM Procedure: intubation (69593) Procedure Section: Sedation: under general anesthesia. Indications [...] (ABNORMAL) CBC W/O DIFFERENTIAL (10/18/2024 10:41 AM [facility]) WBC 7.4 4.0 - 10.7 [...] Unknown Venipuncture / Unknown 10/18/2024 10:41 AM CLOSING AGENT 10/18/2024 10:48 AM [facility] Sujata Benson MD LAB - HEMATOLOGY ORD ERABLES [facility] [address] [place] [address], [facility] [phone] * (ABNORMAL) BASIC METABOLIC PANEL (CALCIUM TOTAL) (10/18/2024 10:41 AM [facility]) Pathologist [facility] BUN 23 7 - 26 mg/dL 10/18/2024 [...] Unknown Venipuncture / Unknown 10/18/2024 10:41 AM CLOSING AGENT 10/18/2024 10:48 AM [facility] Sujata Benson MD LAB - CHEMISTRY HARMAN Garcia Organization Address City/State/ZIP Co de Phone Number [facility] [address] [place] [id number] [phone] * Endoscopic Ultrasonography, GI (10/18/2024 10:31 AM CLOSING AGENT) Report Endoscopy POC Endoscopy Department Report _ Patient Name: Gregory Scherer Procedure Date: 10/18/2024 10:31 AM Date of : 1945 Classification: Outpatient Gender: Male Ethnicity: Not or Race: White _ Providers: Vitaly Guillory MD Referring MD: Spencer Hoyos MD; Jud [...] 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 A large circumferential nearly completely [...] in place via the use of an oyjm-ecy-oxtzp clip (StentFix, [employer]) to reduce the risk of migration. 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 Endosonographic staging consistent with at least T3N1Mx disease (exam limited by inability to pass the echoendoscope through the area of narrowing). - One 22 mm x 150 mm esophageal fully covered metal stent (Taewoon) placed across the area of narrowing, and proximally anchored via use of an vdzj-izo-ytaxf clip (StentFix, OVESCO MR conditional). Moderate Sedation: [...] entire procedure. Procedure Code(s): --- Professional --- 03880, Esophagoscopy, flexible, transoral; with placement of endoscopic stent (includes pre- and post-dilation and guide wire passage, when performed) 83500, Esophagoscopy, flexible, transoral; with endoscopic ultrasound examination 05146, 59, Fluoroscopy (separate procedure), up to 1 hour physician or other qualified health acute care surgeon time Diagnosis Code(s): --- Professional --- K22.89, Other specified disease of esophagus C15.9, Malignant neoplasm of esophagus, unspecified R13.10, Dysphagia, unspecified CPT copyright 2021 [employer]. All rights reserved. The codes documented in this report are preliminary and upon principal research economist review may be revised to meet current compliance requirements. Vitaly Guillory MD 10/18/2024 12:24:47 PM Note Initiated On: 10/18/2024 10:31 AM Number of Addenda: 0 [facility] [address] [place] [id number] [facility] 10/18/2024 10:3 1 AM CLOSING AGENT Vitaly Guillory MD GI PROCEDURE ORDERABLES Performing Organization Address [facility] Co de Phone Number [facility] * EKG 12-LEAD (10/18/2024 10:19 AM CLOSING AGENT) Ventricular Rate 64 BPM [facility] Atrial Rate 64 BPM [facility] P-R Interval 150 ms [facility] QRS Duration ms 134 ms [facility] Q-T Interval ms 430 ms [facility] QTC Calculation (Bezet) 443 ms [facility] Calculated P [place] 53 degrees [facility] Calculated R [place] -42 degrees [facility] Calculated T [place] 88 degrees [facility] Interpretation EKG SINUS RHYTHM WITH PREMATURE ATRIAL COMPLEXES LEFT AXIS DEVIATION NON-SPECIFIC INTRA-VENTRIC ULAR CONDUCTION BLOCK MINIMAL VOLTAGE CRITERIA FOR LVH, MAY BE NORMAL VARIANT ( Gonzalez product ) ABNORMAL ECG NO PREVIOUS ECGS AVAILABLE Confirmed by RAISSA VILLANUEVA, [facility] ([id number]) on 10/28/2024 11:25:47 AM [facility] 10/18/2024 10:1 9 AM CLOSING AGENT 10/28/2024 11:25 AM CLOSING AGENT Sujata Benson MD ECG ORDERABLES Performing Organization Address [facility] Co de Phone Number [facility] * DERMATOPATHOLOGY (05/19/2021 3:33 AM CDT) Only the most recent of3 resultswithin the time period is included. Case Report Dermatopathology Report Case: [id number] Authorizing Provider: Krystal Long MD Collected: 05/19/2021 03:33 AM Ordering Location: [facility] Lab Received: 05/20/2021 05:59 AM Pathologist: Salome Lundberg MD Specimen: Skin, left helix 4:59 PM CDT DERMATOPATHOLOGY LABORATORY Final Diagnosis Specimen A. 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 4:59 PM CDT DERMATOPATHOLOGY LABORATORY Gross Description Specimen A: Received is one formalin filled container labeled with the patient's name and designated left helix. The specimen consists of a shave measuring [id number]. Jar 0+. 4:59 PM CDT DERMATOPATHOLOGY LABORATORY [...] characteristic determined by the Dermatopathology Laboratory at [facility], directed by Dr. Kathryn Redmond. These tests need not be, and therefore are not, approved by the [place] Food and Drug Administration. The tests are used for clinical purposes. Billing Codes Specimen Charges Stain Charges 35752 1 4:59 PM CDT DERMATOPATHOLOGY LABORATORY Embedded Images 4:59 PM CDT DERMATOPATHOLOGY LABORATORY Pathology/Cytolo gy TISSUE SPECIMEN FROM SKIN / Unknown 05/19/2021 3:33 AM CDT 05/20/2021 5:59 AM CDT Krystal Long MD LAB - PATHOLOGY/CYTO LOGY ORDERABLES DERMATOPATHOLOGY LABORATORY [facility] - Department of Dermatology [facility] Specialized Medicine [address] [place] [address], [address] [phone] Care Teams Salicylic Acid Blender Relationship Specialty Start Date End Date Alejandro Flynn MD [address]] [place] [address] PCP - General Internal Medicine 10/16/24 [place] [address] [address] Referring Physician 10/16/24
--- OUTSIDE RECORDS SUMMARY | 2024-10-31 15:56 | XMS_ITS | Clinical Summary ---
Author Organization [facility] marisol [facility] Address [address] [address] Care Team Providers Care Pressure Tester Operator Name Role Phone Alejandro Flynn MD Primary Care Provider + Allergies No known active allergies Medications atorvastatin (LIPITOR) 20 mg tablet Take 20 mg by mouth daily. 3 Active mirtazapine (REMERON) 30 mg tablet Take 30 mg by mouth daily at bedtime. 4 Active pantoprazole (PROTONIX) 40 mg Tablet, Delayed Release (E.C.) Take 40 mg by mouth 2 times daily. Active trimethoprim (TRIMPEX) 100 mg tablet Take 100 mg by mouth daily at bedtime. Active Gemtesa 75 mg Tablet Take 75 mg by mouth daily at bedtime. 3 Active naproxen (NAPROSYN) 375 mg tablet Take 375 mg by mouth 2 times daily as needed for Pain. 4 Active aspirin (ECOTRIN EC) 81 mg Tablet, Delayed Release (E.C.) Take 81 mg by mouth daily. 3 Active cholecalciferol , Vitamin D3, (VITAMIN D3) 25 mcg (1,000 unit) Capsule Take 2,000 Units by mouth daily. 3 10/31/19 25 Active cetirizine (ZyrTEC) 10 mg tablet Take 10 mg by mouth 1 time daily as needed for Allergies. 3 Active IRON PS [id number] IC ACID ORAL Take by mouth daily. Active acetaminophen (TYLENOL) 325 mg tablet Take 325 mg by mouth Continuous as needed for Pain. Active sennosides-docu sate sodium (SENNA-S) 8.6-50 mg tablet Take 1 Tablet by mouth daily. Active HYDROcodone-josé luis taminophen (NORCO) 10-325 mg Tablet Take 1 Tablet by mouth. 4 12/25/19 25 Active lidocaine (LIDODERM) 5 % Adhesive Patch, Medicated Apply 1 Patch to skin as directed daily. 3 Active nitroglycerin (NITROSTAT) 0.4 mg Tablet, Sublingual Place 0.4 mg under tongue every 5 minutes as needed for Chest Pain. Active ROPivacaine 2 mg/mL (0.2 %) Solution by See Admin Instructions route continuously. Active sucralfate (CARAFATE) 100 mg/mL suspension Take 1 Gram by mouth 4 times daily. 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) from Last 3 Months Family History Medical History Relation Name Comments No Known Problems Child Prostate Cancer Father Heart Failure Mother BLOOD CLOT ROLLY T HIT HER LUNG IN HER 40'S THAT PASSED THROUGH HEART TO LUNG No Known Problems Sister 1 Relation Name Status Comments Child Alive Father Mother Sister 1 Alive Sister 2 Social History Tobacco Use Types Packs/Day Years Used Date Smoking Tobacco: Former Cigarettes 0 09/20/2021 - 09/20/1965 Smokeless Tobacco: Never Tobacco Cessation:Counseling Given: Not Answered Alcohol Use Standard Drinks/Week Comments Yes 0 (1 standard drink = 0.6 oz pur e alcohol) Occasionally Sex and Gender Information Value Date Recorded Sex Assigned at Not on file Legal Sex Male 5:30 AM COORDINATE MEASURING MACHINE TECHNICIAN Gender Identity Not on file Sexual Orientation Not on file Last Filed Vital Signs Vital Sign Reading Time Taken Comments Blood Pressure 122/81 10/30/2024 3:39 PM COORDINATE MEASURING MACHINE TECHNICIAN Pulse 87 10/30/2024 3:39 PM COORDINATE MEASURING MACHINE TECHNICIAN Temperature 36.2 C (97.1 F) 10/30/2024 3:39 PM COORDINATE MEASURING MACHINE TECHNICIAN Respiratory Rate 14 10/30/2024 3:39 PM COORDINATE MEASURING MACHINE TECHNICIAN Oxygen Saturation 98% 10/30/2024 3:39 PM COORDINATE MEASURING MACHINE TECHNICIAN Inhaled Oxygen Concentration - - Weight 59.9 kg (132 lb) 10/30/2024 3:39 PM COORDINATE MEASURING MACHINE TECHNICIAN Height 182.9 cm (6') 10/30/2024 3:39 PM COORDINATE MEASURING MACHINE TECHNICIAN Body Mass Index 17.9 10/30/2024 3:39 PM COORDINATE MEASURING MACHINE TECHNICIAN Plan of Treatment Upcoming Encounters Date Type Department Care Team (Late st Contact Info) Description 11/07/2024 9:15 AM COORDINATE MEASURING MACHINE TECHNICIAN Appointment [facility] Nuclear Medicine [address] [place] [address] [phone] Jose Armando Carroll MD [facility] [facility] [address] [place] [phone] Health Maintenance Due Date Last Done Comments DTAP/TDAP/TD VACCINES (1 - Tdap) 1965 PNEUMOCOCCAL VACCINE 65+ YEA RS (1 of 1 - PCV) 1996 ZOSTER VACCINE (1 of 2) 1996 RSV VACCINE (60+ or ) (1 - 1-dose 75+ series) 2021 INFLUENZA VACCINE (#1) 2024 2, 06/13/2021, 08/23/2019, Additional history exists Insurance [facility] [id number] [facility] [id number] Care Teams Pressure Tester Operator Relationship Specialty Start Date End Date Alejandro Flynn MD [address] [place] [address] PCP - General Internal Medicine 10/31/24
--- OUTSIDE RECORDS SUMMARY | 2024-10-31 15:56 | XMS_ITS | Encounter Summary ---
Author Organization [facility] Address [address] [place] [address] Care Team Providers Care Cell Tuber Hand Name Role Phone Alejandro Flynn MD Primary Care Provider + Encounter Details Date Type Department Care Team (Late st Contact Info) Description 11/07/2007 Outpatient Historical [facility] Cardiology [address] [facility] [address] [place] [address] Ciro Ross MD NO ADDRESS ON FILE Social History Tobacco Use Types Packs/Day Years Used Date Smoking Tobacco: Never Assessed Sex and Gender Information Value Date Recorded Sex Assigned at Not on file Legal Sex Male 5:30 AM RETAIL ASSISTANT Gender Identity Not on file Sexual Orientation Not on file documented as of this encounter Plan of Treatment Upcoming Encounters Date Type Department Care Team (Late st Contact Info) Description 11/07/2024 9:15 AM RETAIL ASSISTANT Appointment [facility] Nuclear Medicine [address] [place] [id number] Jose Armando Carroll MD [address] [facility] [address] [place] [address] documented as of this encounter Visit Diagnoses Not on filedocumented in this encounter Care Teams Cell Tuber Hand Relationship Specialty Start Date End Date Alejandro Flynn MD [address] [place] [address] PCP - General Internal Medicine 10/31/24 documented as of this encounter
--- OUTSIDE RECORDS SUMMARY | 2024-10-31 15:56 | XMS_ITS | Referral Summary ---
Author Organization [facility] Address [address] [place] [address] Care Team Providers Care Mixer Operator Helper Hot Metal Name Role Phone Alejandro Flynn MD Primary Care Provider [phone] Spencer Hoyos MD Unavailable Unavailabl e Source Comments [facility],non-owned Affiliates and Associated Physician Practices is amultiple site organization consisting of ambulatory clinics and hospital sitesin [place], [place], [place] and [place]. This disclosure is being madepursuant to the Care Everywhere program and may not contain all information available regarding this patient. Last updated 18.[facility] Encounters Date Type Department Care Team Description 10/19/2024 Orders Only [facility] - GI [address] [place] [phone] Vitaly Goodson MD Malignant neoplasm of lower third of esophagus (HCC) ; Esophagitis 10/19/2024 Telephone [facility] [address] [place] [phone] Rubi Medellin RN General 10/18/2024 Orders Only [facility] [address] [place] [phone] Vitaly Goodson MD Other chest pain 10/18/2024 Travel 10/18/2024 11:01 AM CENTRIFUGAL CASTING MACHINE OPERATOR Anesthesia Event [facility] [address] [place] [phone] Sujata Benson MD 10/18/2024 11:00 AM CENTRIFUGAL CASTING MACHINE OPERATOR - 10/18/2024 12:00 PM [facility] Surgery [facility] [address] [place] [address] Vitaly Goodson MD EUS + Stent 10/18/2024 9:54 AM CENTRIFUGAL CASTING MACHINE OPERATOR - 10/18/2024 2:17 PM [facility] Hospital Encounter [facility] [address] [place] [address] Vitaly Goodson MD Surgery General Discharge Disposition: Home or Self Care 10/16/2024 Telephone [facility] - GI [address] [facility], [place] [phone] Moo Willett RN Procedure (external referral: EGD + Stent for dysphagia with Dr. Sellers from Dr. Spencer Hoyos f: [phone]) 10/09/2024 Lab Requisition [facility] - Pathology Lab [address] [place] [address] Joseph Lee MD Illness, unspecified from Last [...] Esophagus Inflammation 200 mL 5 10/24/19 25 Social History Tobacco Use Types Packs/Day Years [...] Comments Blood Pressure 148/69 10/18/2024 1:30 PM CENTRIFUGAL CASTING MACHINE OPERATOR Pulse 65 10/18/2024 1:30 PM CENTRIFUGAL CASTING MACHINE OPERATOR Temperature 36 C (96.8 F) 10/18/2024 12:50 PM CENTRIFUGAL CASTING MACHINE OPERATOR Respiratory Rate 10 10/18/2024 1:30 PM CENTRIFUGAL CASTING MACHINE OPERATOR Oxygen Saturation 99% 10/18/2024 1:30 PM CENTRIFUGAL CASTING MACHINE OPERATOR Inhaled Oxygen Concentration - - Weight 63 kg (139 lb) 10/18/2024 10:31 AM CENTRIFUGAL CASTING MACHINE OPERATOR Height 182.9 cm (6') 10/18/2024 10:31 AM CENTRIFUGAL CASTING MACHINE OPERATOR Body Mass Index 18.85 10/18/2024 10:31 AM CENTRIFUGAL CASTING MACHINE OPERATOR Functional Status Functional Status Response Date of [...] on file Medical Devices Implanted Type Area Dielectric Testing Machine Operator Device Identifier Shelf Expiration Date Model / Serial / Lot Esophageal Tts Stent 22mm X 150mm Implanted:Qty: 1 on 10/18/2024 by Vitaly Goodson MD at [facility] N/A: Esophagus 03/28/2026 [id number] / [id number] / [id number] Description:[employer] Esophageal Stent 22mm x 150mm Procedures Procedure Name Priority Date/Time Associated Diagnosis Comments ENDOTRACHEAL TUBE NOTE Routine 10/18/2024 11:14 AM CENTRIFUGAL CASTING MACHINE OPERATOR [place] ENDOSCOPIC ULTRASOUND EXAM 10/18/2024 10:56 AM CENTRIFUGAL CASTING MACHINE OPERATOR Dysphagia, unspecified type CBC W/O DIFFERENTIAL Routine 10/18/2024 10:41 AM CENTRIFUGAL CASTING MACHINE OPERATOR Pre-op exam BASIC METABOLIC PANEL (CALCIUM TOTAL) Routine 10/18/2024 10:41 AM CENTRIFUGAL CASTING MACHINE OPERATOR Pre-op evaluation ENDOSCOPIC ULTRASONOGRAPHY, GI Routine 10/18/2024 10:31 AM CENTRIFUGAL CASTING MACHINE OPERATOR EKG 12-LEAD Routine 10/18/2024 10:19 AM CENTRIFUGAL CASTING MACHINE OPERATOR Pre-op evaluation from Last 3 Months Results * ETT LINE PERFORMABLE (10/18/2024 11:14 AM CENTRIFUGAL CASTING MACHINE OPERATOR) Narrative Sapna Ojeda APRN-CRNA - 10/18/2024 11:14 AM CENTRIFUGAL CASTING MACHINE OPERATOR Sapna Ojeda APRN-CRNA 10/18/2024 11:16 AM Endotracheal Tube Placement: Intubation Event Date/Time: 10/18/2024 11:08 AM Procedure: intubation (51821) Procedure Section: Sedation: under general anesthesia. Indications [...] (ABNORMAL) CBC W/O DIFFERENTIAL (10/18/2024 10:41 AM [facility]) WBC 7.4 4.0 - 10.7 x10E9/L 10/18/2024 10:57 AM [facility] RBC Count 3.86(L) 4.30 - 5.80 x10E12/L 10/18/2024 10:57 AM [facility] Hemoglobin 12.0(L) 13.3 - 17.5 g/dL 10/18/2024 10:57 AM [facility] Hematocrit 36.0(L) 38.7 - 51.1 % 10/18/2024 10:57 AM [facility] MCV 93.3 80.0 - 98.0 fL 10/18/2024 10:57 AM [facility] MCH 31.1 26.7 - 33.6 pg 10/18/2024 10:57 AM [facility] MCHC 33.3 31.7 - 36.3 g/dL 10/18/2024 10:57 AM [facility] RDW-CV 12.2 11.3 - 14.8 % 10/18/2024 10:57 AM [facility] Platelet Count 290 150 - 420 x10E9/L 10/18/2024 10:57 AM [facility] MPV 9.7 7.8 - 11.4 fL 10/18/2024 10:57 AM [facility] Blood BLOOD SPECIMEN / Unknown Venipuncture / Unknown 10/18/2024 10:41 AM CENTRIFUGAL CASTING MACHINE OPERATOR 10/18/2024 10:48 AM CENTRIFUGAL CASTING MACHINE OPERATOR Sujata Benson MD LAB - HEMATOLOGY ORD [facility] [address] [place] [address], [facility] [phone] * (ABNORMAL) BASIC METABOLIC PANEL (CALCIUM TOTAL) (10/18/2024 10:41 AM CENTRIFUGAL CASTING MACHINE OPERATOR) BUN 23 7 - 26 mg/dL 10/18/2024 11:20 AM [facility] Creatinine 0.81 0.71 - 1.16 mg/dL 10/18/2024 11:20 AM [facility] Sodium 138 136 - 145 mmol/L 10/18/2024 11:20 AM [facility] Potassium 3.7 3.5 - 4.5 mmol/L 10/18/2024 11:20 AM [facility] Chloride 102 98 - 107 mmol/L 10/18/2024 11:20 AM [facility] CO2 26 22 - 29 mmol/L 10/18/2024 11:20 AM [facility] Glucose 93 70 - 99 mg/dL 10/18/2024 11:20 AM [facility] Calcium 9.6 8.4 - 10.2 mg/dL 10/18/2024 11:20 AM [facility] Anion Gap 10 6 - 16 10/18/2024 11:20 AM [facility] BUN/Creatinine Ratio 28(H) 7 - 23 10/18/2024 11:20 AM [facility] Osmolality Calculated 289 275 - 295 mOsm/kg 10/18/2024 11:20 AM [facility] eGFR by CKD-EPI 90 >=90 mL/min/1.7 3 m2 10/18/2024 11:20 AM [facility] Blood BLOOD SPECIMEN / Unknown Venipuncture / Unknown 10/18/2024 10:41 AM CENTRIFUGAL CASTING MACHINE OPERATOR 10/18/2024 10:48 AM CENTRIFUGAL CASTING MACHINE OPERATOR Sujata Benson MD LAB - CORRIE WILLAMS [facility] [address] [place] [address], [facility] [phone] * Endoscopic Ultrasonography, GI (10/18/2024 10:31 AM CENTRIFUGAL CASTING MACHINE OPERATOR) Report Endoscopy POC Endoscopy Department Report _ [...] 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 Endosonographic staging consistent with at least T3N1Mx disease (exam limited by inability to pass the echoendoscope through the area of narrowing). - One 22 mm x 150 mm esophageal fully covered metal stent (Taewoon) placed across the area of narrowing, and proximally anchored via use of an cxzk-vln-oefvl clip (StentFix, OVESSCIC SA [employer] MR conditional). Moderate Sedation: GA. Recommendation: - [...] entire procedure. Procedure Code(s): --- Professional --- 29096, Esophagoscopy, flexible, transoral; with placement of endoscopic stent (includes pre- and post-dilation and guide wire passage, when performed) 49796, Esophagoscopy, flexible, transoral; with endoscopic ultrasound examination 53124, 59, Fluoroscopy (separate procedure), up to 1 hour physician or other qualified health director day care center time Diagnosis Code(s): --- Professional --- K22.89, Other specified disease of esophagus C15.9, Malignant neoplasm of esophagus, unspecified R13.10, Dysphagia, unspecified CPT copyright 2021 [employer]. All rights reserved. The codes documented in this report are preliminary and upon dietetic aide review may be revised to meet current compliance requirements. Vitaly Guillory MD 10/18/2024 12:24:47 PM Note Initiated On: 10/18/2024 10:31 AM Number of Addenda: [address] [id number] [facility] 10/18/2024 10:3 1 AM CENTRIFUGAL CASTING MACHINE OPERATOR Vitaly Guillory MD GI PROCEDURE ORDERABLES Performing Organization Address [facility] de Phone Number [facility] * EKG 12-LEAD (10/18/2024 10:19 AM CENTRIFUGAL CASTING MACHINE OPERATOR) Ventricular Rate 64 BPM [facility] Atrial Rate 64 BPM [facility] P-R Interval 150 ms [facility] QRS Duration ms 134 ms [facility] Q-T Interval ms 430 ms [facility] QTC Calculation (Bezet) 443 ms [facility] Calculated P [place] 53 degrees [facility] Calculated R [place] -42 degrees [facility] Calculated T [place] 88 degrees [facility] Interpretation EKG SINUS RHYTHM WITH PREMATURE ATRIAL COMPLEXES LEFT AXIS DEVIATION NON-SPECIFIC INTRA-VENTRIC ULAR CONDUCTION BLOCK MINIMAL VOLTAGE CRITERIA FOR LVH, MAY BE NORMAL VARIANT ( Gonzalez product ) ABNORMAL ECG NO PREVIOUS ECGS AVAILABLE Confirmed by RAISSA VILLANUEVA, SERAFINLALA ([id number]) on 10/28/2024 11:25:47 AM [facility] 10/18/2024 10:1 9 AM CENTRIFUGAL CASTING MACHINE OPERATOR 10/28/2024 11:25 AM CENTRIFUGAL CASTING MACHINE OPERATOR Sujata Benson MD ECG ORDERABLES Performing Organization Address [facility] Co de Phone Number [facility] from Last 3 Months Care Teams Mixer Operator Helper Hot Metal Relationship Specialty Start Date End Date Alejandro Flynn MD [address] [place] [address] PCP - General Internal Medicine 10/16/24 [place] [address] [address] Referring Physician 10/16/24
--- OUTSIDE RECORDS SUMMARY | 2024-10-31 15:56 | XMS_ITS | Referral Summary ---
Author Organization [facility] Address [address] [place] [address] Care Team Providers Care Artist'S Model Name Role Phone Alejandro Flynn MD Primary Care Provider [phone] Richard Craft MD Unavailable [phone] Jacob Aragon MD Unavailable [phone] Addison Winchester NP Unavailable [phone] Encounters Date Type Department Care Team Description 10/10/2024 Telephone [facility] Scheduling [address] [place] [address] [place] Scheduling Appointments 10/09/2024 10:00 AM DISCHARGE SPECIALIST - 10/09/2024 11:59 PM DISCHARGE SPECIALIST Hospital Encounter [facility] [address] [place] [address] Addison Winchester NP Long-term current use of opiate analgesic (Primary Dx); Cervicalgia; Chronic bilateral low back pain without sciatica; Lumbosacral spondylosis without myelopathy; Spinal stenosis of lumbar region without neurogenic claudication; Radiculopathy, lumbosacral region; Spondylosis of lumbar region without myelopathy or radiculopathy; Thoracic spine pain; Lumbar post-laminectomy syndrome; Presence of intrathecal pump Discharge Disposition: Discharge to home or self care 09/27/2024 Orders Only [facility] Vascular at [address] [place] [phone] Umang Gooden MD PVD (peripheral vascular disease) (HCC) (Primary Dx); Left subclavian artery occlusion; Stenosis of right carotid artery; Subclavian steal syndrome; Infrarenal abdominal aortic aneurysm (AAA) without rupture (HCC) 09/27/2024 10:00 AM DISCHARGE SPECIALIST Office Visit [facility] Vascular at [address] [place] [phone] Umang Gooden MD Infrarenal abdominal aortic aneurysm (AAA) without rupture (HCC) (Primary Dx); Mixed hyperlipidemia; Subclavian steal syndrome; PVD (peripheral vascular disease) (HCC) 09/26/2024 3:00 PM DISCHARGE SPECIALIST Ancillary Procedure [facility] Vascular and Vein Surgery at [address] [place] [phone] Bilateral carotid artery stenosis 09/26/2024 2:00 PM DISCHARGE SPECIALIST Ancillary Procedure [facility] Vascular and Vein Surgery at [address] [place] [phone] Infrarenal abdominal aortic aneurysm (AAA) without rupture (HCC) 09/26/2024 1:00 PM DISCHARGE SPECIALIST Ancillary Procedure [facility] Vascular and Vein Surgery at [address] [place] [phone] Atherosclerotic PVD with intermittent claudication (HCC); Other specified symptoms and signs involving the circulatory and respiratory systems 09/06/2024 3:11 PM DISCHARGE SPECIALIST - 09/06/2024 11:59 PM DISCHARGE SPECIALIST Hospital Encounter [facility] [address] [place] [address] Addison Winchester NP Lumbar post-laminectomy syndrome (Primary Dx); Cervical spinal stenosis; Thoracic spine pain; Spondylosis without myelopathy or radiculopathy, cervicothoracic region Discharge Disposition: Discharge to home or self care 08/23/2024 2:36 PM DISCHARGE SPECIALIST - 08/23/2024 11:59 PM DISCHARGE SPECIALIST Hospital Encounter [facility] [address] [place] [address] Inderjit Goodman MD Thoracic spine pain; Other spondylosis, thoracic region Discharge Disposition: Discharge to home or self care 08/21/2024 Orders Only [facility] Vascular and Vein Surgery [address] [facility] [address] [place] [phone] Umang Gooden MD Atherosclerotic PVD with intermittent claudication (HCC) (Primary Dx); Infrarenal abdominal aortic aneurysm (AAA) without rupture (HCC); Bilateral carotid artery stenosis; Other specified symptoms and signs involving the circulatory and respiratory systems from Last 3 Months Allergies Active Allergy [...] 09/28/2024 Assessment & Plan (09/28/2024 1:20 PM DISCHARGE SPECIALIST): Moderate occlusive disease bilaterally. Has a appears to be what a mixed arterial venous wound to the right lower extremity following with his cro. They report it is healing. We did [...] 11/27/2022 Assessment & Plan (11/27/2022 10:41 AM DISCHARGE SPECIALIST): New right heel ulceration to the right [...] (10/06/2022): Added automatically from request for surgery [id number] Venous congestion 09/29/2022 Assessment & Plan (09/29/2022 1:22 PM DISCHARGE SPECIALIST): Venous congestion: Left foot discoloration associated with venous congestion as patient has been minimally ambulatory over the past couple of days secondary to postprocedure. No concern for arterial, venous etiology. Patient has palpable distal pulses, motor and sensory are intact. No further workup required. Subclavian artery stenosis (CMS/HCC) 09/10/2022 Stenosis of carotid artery 08/11/2022 Overview (08/11/2022): Added automatically from request for surgery [id number] Subclavian steal syndrome 07/28/2022 Assessment & Plan (09/28/2024 1:19 PM DISCHARGE SPECIALIST): Status post left carotid subclavian bypass. Continue risk factor modification with ASA statin therapy. Follow up in 1 year with repeat duplex. Left subclavian artery occlusion 07/28/2022 Assessment & Plan (11/27/2022 10:32 AM DISCHARGE SPECIALIST): Continues to recover well. Denies any symptoms his upper extremities or any dizziness with exertion. Scheduled to follow-up in December with carotid duplex. Assessment & Plan (09/29/2022 1:23 PM DISCHARGE SPECIALIST): Left subclavian steal syndrome: Patient status post left carotid subclavian formed 09/10/2022. Patient doing well status post surgical intervention. Remains asymptomatic. Patient to follow-up in the office in 3 months with repeat imaging Lumbar post-laminectomy syndrome 04/17/2021 Presence of intrathecal pump 12/10/2020 Mixed hyperlipidemia 02/23/2020 Assessment & Plan (09/28/2024 1:18 PM DISCHARGE SPECIALIST): Stable continue Lipitor Assessment & Plan (02/23/2020 2:54 PM CDT): Impression: Hyperlipidemia currently on pharmacotherapy. Plan: Continue ongoing statin therapy as directed by PCP. Primary osteoarthritis of left knee 08/01/2019 Chronic pain of left knee 07/26/2019 Idiopathic scoliosis and kyphoscoliosis 12/24/19 19 Overview (12/23/2018): Added automatically from request for surgery [id number] Spinal stenosis of lumbar re gion without neurogenic claudication 10/27/2018 Radiculopathy, lumbosacral region 10/27/2018 Aneurysm artery, iliac (CMS/HCC) 10/07/2018 Abdominal aortic aneurysm (AAA) without rupture 08/04/2018 Overview (08/04/2018): 06/29/2018 ultrasound measured 3.3 x 3.3 cm, CT scan measured 3.1 x 3.7 cm Assessment & Plan (09/28/2024 1:19 PM DISCHARGE SPECIALIST): 4 cm AAA. 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, self-employed realtor Not on file Not on file Not on file Last Filed Vital Signs Vital Sign Reading Time Taken Comments Blood Pressure 133/78 10/09/2024 10:29 AM DISCHARGE SPECIALIST Pulse 66 10/09/2024 10:29 AM DISCHARGE SPECIALIST Temperature 36.5 C (97.7 F) 08/23/2024 2:59 PM DISCHARGE SPECIALIST Respiratory Rate 17 10/09/2024 10:29 AM DISCHARGE SPECIALIST Oxygen Saturation 100% 10/09/2024 10:29 AM DISCHARGE SPECIALIST Inhaled Oxygen Concentration - - Weight 72.6 kg (160 lb) 09/27/2024 10:14 AM DISCHARGE SPECIALIST Height 182.9 cm (6') 09/27/2024 10:14 AM DISCHARGE SPECIALIST Body Mass Index 21.7 09/27/2024 10:14 AM DISCHARGE SPECIALIST Plan of Treatment Not on file Medical Devices Implanted Type Area Film Library Clerk Device Identifier Shelf Expiration Date Model / Serial / Lot Stent Implanted:Qty: 3 Stent N/A: Coronary Artery [employer] Inc 16959 Neurostimulator Implantable Chronic Pain Rs2 - [id number] - [id number] Implanted:Qty: 1 on 06/16/2018 by Inderjit Goodman MD at [facility] N/A: Back [employer] Inc 02/14/2019 65205 / [id number] / Med[employer] Inc 8782 Ascenda 2 Attached Collet Spinal Segment Revision Catheter - [id number] - [id number] Implanted:Qty: 1 on 01/13/2019 by Hilario Kumar MD at [facility] Spine Lumbar [employer] Inc 12/22/2019 8782 / [id number] / Med[employer]onic Inc 84371 Neurostimulator Implantable Chronic Pain Rs2 - [id number] - [id number] Implanted:Qty: 1 on 05/11/2019 by Inderjit Goodman MD at [facility] N/A: Back [employer] Inc 02/01/2020 05504 / [id number] / Medtronic Neuro 8637-20 Synchromed Ii .78in [place] Filter Mesh Pouch Programmable - [id number] - [id number] Implanted:Qty: 1 on 05/06/2021 by Inderjit Goodman MD at [facility] N/A: Abdomen [employer] Inc 10/17/2022 8637-20 / [id number] / [employer] 8mm 40cm Stretch Peripheral Thin Wall Graft Vascular Points-Frankie [id number] - [id number] - [id number] Implanted:Qty: 1 on 09/10/2022 by Jacob Aragon MD at [facility] Left: Subclavian Artery [employer] [id number] 03/17/2027 [id number] / [id number] / Nuvasive Inc Screw Spine Reline C Lock Open Non-Sterile Latex Free [id number] - [id number] Implanted:Qty: 8 on 02/01/2023 by Domingo Srinivasan MD at [facility] N/A: Spine Cervical [employer] Inc [id number] / / Nuv[employer] Inc Andreas Spine Reline C Ti Prebent 4.0x70mm Latex Free [id number] - [id number] Implanted:Qty: 2 on 02/01/2023 by Domingo Srinivasan MD at [facility] N/A: Spine Cervical [employer] Inc [id number] / / Nuvasive Reline C 5.0x35mm Red Screw Implanted:Qty: 2 on 02/01/2023 by Domingo Srinivasan MD at [facility] N/A: Spine Cervical [employer] Inc [id number] / N/A / Abyrx Hemasorb Os-Spa Spatula Wax 2gm Bone Sterile Os-201 - [id number] Implanted:Qty: 1 on 02/01/2023 by Domingo Srinivasan MD at [facility] N/A: Spine Thoracic Abyrx [id number] 02/17/2025 OS-201 / / [id number] [employer] Graft Bone Magnetos 10cc 1-2mm Granules In Moldable Putty 703-038-[id number] - Sn/A - [id number] Implanted:Qty: 1 on 02/01/2023 by Domingo Srinivasan MD at [facility] N/A: Spine Cervical [employer] [id number] 12/19/2024 703-038- US / N/A / [id number] Nuv[employer] Inc Screw Spine Reline C Ma 3.5x16mm Non-Sterile Latex Free [id number] - [id number] Implanted:Qty: 6 on 02/01/2023 by Domingo Srinivasan MD at [facility] N/A: Spine Cervical [employer] Inc [id number] / / Explanted Type Area Film Library Clerk Device Identifier Shelf Expiration Date Model / Serial / Lot Spinal Cord Stimulator Generator Explanted:Qty: 1 on 05/11/2019 by Inderjit Goodman MD at [facility] N/A: Back Medtronic [id number] / / Procedures Procedure Name Priority Date/Time Associated Diagnosis Comments US CAROTIDS DUPLEX BILATERAL Schedule Routine, Read Routine (OP Routine) 09/26/2024 2:37 PM DISCHARGE SPECIALIST Bilateral carotid artery stenosis US DUPLEX SCAN AORTA, IVC ILIAC COMPLETE Schedule Routine, Read Routine (OP Routine) 09/26/2024 2:37 PM DISCHARGE SPECIALIST Infrarenal abdominal aortic aneurysm (AAA) without rupture (HCC) US ARTERIAL DOPPLER LOWER EXTREMITY BILATERAL Schedule Routine, Read Routine (OP Routine) 09/26/2024 2:37 PM DISCHARGE SPECIALIST Atherosclerotic PVD with intermittent claudication (HCC) Other specified symptoms and signs involving the circulatory and respiratory systems PAIN MGMT IMAGING CERVICAL/THORACIC FACET/MEDIAL BRANCH BLOCK BILATERAL Schedule Routine, Read Routine (OP Routine) 08/23/2024 3:32 PM DISCHARGE SPECIALIST Thoracic spine pain Other spondylosis, thoracic region CTA ABDOMEN PELVIS W WO CONTRAST Routine 08/23/2015 12:00 AM DISCHARGE SPECIALIST from Last 3 Months or Most Recently Relevant to Health Maintenance Results * US Carotids Duplex Bilateral (09/26/2024 2:37 PM DISCHARGE SPECIALIST) LV EF % CONS SCIMAGE Anatomical Region Laterality Modality Vascular Bilateral Ultrasound 09/26/2024 1:04 PM DISCHARGE SPECIALIST Narrative 09/27/2024 10:23 AM DISCHARGE SPECIALIST Vascular & Vein Surgery [address] [place] [address] Carotid Duplex Ultrasound Report Patient Name: ELZA SCHERER W : 1945 (79y 2m) Study Date: 09/26/2024 1:04:36 PM Gender: M Door Closer: LUIS E Location: [facility] Ref Provider: UMANG GOODEN Quality: Adequate Order Provider: UMANG GOODEN PROCEDURES: Carotid Report: Carotid duplex examination of [...] is provided above. Electronically Signed By: Umang Gooden MD [place] 09/27/2024 10:22:59 AM DISCHARGE SPECIALIST Procedure Note Umang Gooden MD - 09/27/2024 Vascular & Vein Surgery [address] [place] [address] Carotid Duplex Ultrasound Report Patient Name: ELZA SCHERER W : 1945 (79y 2m) Study Date: 09/26/2024 1:04:36 PM Gender: M Door Closer: LUIS E Location: [facility] Ref Provider: UMANG GOODEN Quality: Adequate Order Provider: UMANG GOODEN PROCEDURES: Carotid Report: Carotid duplex examination of [...] is provided above. Electronically Signed By: Umang Gooden MD [facility] 09/27/2024 10:22:59 AM DISCHARGE SPECIALIST us Umang Gooden MD [facility] US PROCEDURES Final Result * US Duplex Scan Aorta, IVC Iliac Complete (09/26/2024 2:37 PM DISCHARGE SPECIALIST) LV EF % CONS SCIMAGE Anatomical Region Laterality Modality Vascular N/A Ultrasound 09/26/2024 1:36 PM DISCHARGE SPECIALIST Narrative 09/27/2024 10:22 AM DISCHARGE SPECIALIST Vascular & Vein Surgery [address] [place] [address]. [place] [address] Abdominal Aortic Duplex Ultrasound Report Patient Name: ELZA SCHERER W : 1945 Study Date: 09/26/2024 1:36:32 PM Gender: M Door Closer: LUIS E Location: [facility] Ref Provider: UMANG GOODEN Quality: Adequate Order Provider: UMANG GOODEN PROCEDURES: Arterial Report: Duplex ultrasound imaging of [...] is provided above. Electronically Signed By: Umang Gooden MD B 09/27/2024 10:21:44 AM DISCHARGE SPECIALIST Procedure Note Umang Gooden MD - 09/27/2024 Vascular & Vein Surgery [address] [place] [address] Abdominal Aortic Duplex Ultrasound Report Patient Name: ELZA SCHERER W : 1945 Study Date: 09/26/2024 1:36:32 PM Gender: M Door Closer: Location: [facility] Provider: UMANG GOODEN Quality: Adequate Order Provider: UMANG GOODEN PROCEDURES: Arterial Report: Duplex ultrasound imaging of [...] is provided above. Electronically Signed By: Umang Gooden MD [facility] 09/27/2024 10:21:44 AM DISCHARGE SPECIALIST us Umang Gooden MD [facility] US PROCEDURES Final Result * US Arterial Doppler Lower Extremity Bilateral (09/26/2024 2:37 PM DISCHARGE SPECIALIST) LV EF % CONS SCIMAGE Anatomical Region Laterality Modality Vascular Bilateral Ultrasound 09/26/2024 12:5 2 PM DISCHARGE SPECIALIST Narrative 09/27/2024 10:20 AM DISCHARGE SPECIALIST Vascular & Vein Surgery [facility] [place] [address] Lower Extremity Arterial Doppler Report Patient Name: ELZA SCHERER W : 1945 Study Date: 09/26/2024 12:52:00 PM Gender: M Door Closer: Ember Bazzi RVT Location: [facility] Ref Provider: UMANG GOODEN Quality: Adequate Order Provider: UMANG GOODEN PROCEDURES: Arterial Report: Bilateral lower extremity arterial Doppler exam at rest. INDICATIONS: I70.219 Atherosclerosis of [place] arteries of extremities with intermittent claudication, unspecified [...] mmHg Lt Calf Pressure 128 mmHg Rt RN CARDIAC REHAB Pressure 106 mmHg Lt RN CARDIAC REHAB Pressure 108 mmHg Rt DPA Pressure 122 [...] is provided above. Electronically Signed By: Umang Gooden MD [facility] 09/27/2024 10:20:20 AM DISCHARGE SPECIALIST Procedure Note Umang Gooden MD - 09/27/2024 Vascular & Vein Surgery [address] [place] [address] Lower Extremity Arterial Doppler Report Patient Name: ELZA SCHERER W : 1945 Study Date: 09/26/2024 12:52:00 PM Gender: M Door Closer: Ember Bazzi RVT Location: [facility] Ref Provider: UMANG GOODEN Quality: Adequate Order Provider: UMANG GOODEN PROCEDURES: Arterial Report: Bilateral lower extremity arterial Doppler exam at rest. INDICATIONS: I70.219 Atherosclerosis of [place] arteries of extremities withintermittent claudication, unspecified extremity [...] mmHg Lt Calf Pressure 128 mmHg Rt RN CARDIAC REHAB Pressure 106 mmHg Lt RN CARDIAC REHAB Pressure 108 mmHg Rt DPA Pressure 122 [...] By: MD IMELDA Gastelum 09/27/2024 10:20:20 AM DISCHARGE SPECIALIST us Umang Gooden MD IMG US PROCEDURES Final Result * Imaging Cervical/Thoracic Facet Medial Branch Block Bilateral (83211) (08/23/2024 3:32 PM DISCHARGE SPECIALIST) Narrative RAD_PACS_CH - 08/23/2024 3:33 PM DISCHARGE SPECIALIST The images from this study are not interpreted by Radiology. Please refer to the physician's procedure / OR operative note. Addison Winchester NP IMG PAIN MGMT PROCEDURES Janis l Result RAD_PACS_[facility] * CTA Abdomen Pelvis (08/23/2015 12:00 AM DISCHARGE SPECIALIST) Anatomical Region Laterality Modality Body N/A Computed Tomogra phy 08/23/2015 Narrative 08/24/2015 2:36 PM DISCHARGE SPECIALIST PROCEDURE: CTA ABDOMEN PELVIS WITHOUT AND WITH [...] Caceres M.D. JA:kellie 08:39 AM 09:18 AM [facility] [[facility]] Procedure Note Provider, MD Radames [...] Caceres M.D. JA:kellie 08:39 AM 09:18 AM [facility] [E[facility]] [facility] Vineet Hurd MD IMG CT PROCEDURES Final Re sult from Last 3 Months or Most Recently Relevant to Health Maintenance Insurance MEDICARE SOLUTIONS [facility] MEDICARE MEDICARE [facility] MEDICARE SOLUTIONS MEDICARE [facility] Advance Directives For more information, please contact: [phone] Documents on File Type Date Recorded Patient Early Childhood Director Expl anation ADVANCE DIRECTIVE 02/01/2023 5:39 AM Power of Assistant Dean Of Students-Medical * Full Code (Latest Code Status on File) Date Activated Date Inactivated Comments 09/10/2022 2:23 PM 09/12/2022 7:46 PM * Full Code Date Activated Date Inactivated Comments 05/22/2021 10:58 AM 05/23/2021 4:51 AM * Full Code Date Activated Date Inactivated Comments 01/13/2019 7:44 PM 01/15/2019 6:40 PM * Full Code Date Activated Date Inactivated Comments 12/15/2018 1:24 PM 12/16/2018 4:52 AM Care Teams Artist'S Model Relationship Specialty Start Date End Date Alejandro Flynn MD [address] [facility] [address] [facility] [address] [place] [address] PCP - General Internal Medicine 07/09/22 Richard Craft MD [address] [facility] [address] [facility] [address] [place] [address] Consulting Physician Cardiology 09/07/22 Jacob Aragon MD [address] [address] Consulting Physician Vascular Surgery 09/12/22 [place] [address] [facility] [address] [place] [address] Nurse Practitioner Pain Management 09/06/24
--- OUTSIDE RECORDS SUMMARY | 2024-10-31 15:56 | XMS_ITS | Clinical Summary ---
Author Organization [facility] Address [facility] [place] [address] Care Team Providers Care Automation Specialist Name Role Phone Unavailable Primary Care [...]
--- OUTSIDE RECORDS SUMMARY | 2024-10-31 15:56 | XMS_ITS | Encounter Summary ---
Author Organization [facility] Address [address] [place] [address] Care Team Providers Care Program Director/Traffic Director Name Role Phone Alejandro Flynn MD Primary Care Provider + Encounter Details Date Type Department Care Team (Latest Contact Info) Description 11/04/2007 Outpatient Historical HIS CARD AVIONICS SYSTEM ENGINEER Richard Craft MD [address] [facility] [address] [place] [address] Cor Athrscl-Uns Vessel Social History Tobacco Use Types Packs/Day Years Used Date Smoking Tobacco: Never Assessed Sex and Gender Information Value Date Recorded Sex Assigned at Not on file Legal Sex Male 5:30 AM DISH ROOM WORKER Gender Identity Not on file Sexual Orientation Not on file documented as of this encounter Plan of Treatment Upcoming Encounters Date Type Department Care Team (Late st Contact Info) Description 11/07/2024 9:15 AM DISH ROOM WORKER Appointment [facility] Nuclear Medicine [address] [place] [phone] [id number] Jose Armando Carroll MD [address] [facility] [address] [place] [address] documented as of this encounter Procedures Procedure Name Priority Date/Time Associated Diagnosis Comments CL CORONARY ANGIOGRAM Routine 11/07/2007 11:34 AM DISH ROOM WORKER documented in this encounter Results * CL CORONARY ANGIOGRAM (11/07/2007 11:34 AM DISH ROOM WORKER) Narrative INTERFACE SYSTEM - 11/07/2007 11:34 AM DISH ROOM WORKER [facility] [address] [place] [address] [email or web address] Cardiac Catheterization Comprehensive Report Patient: Gregory Scherer Study ID: [id number] Gender: M : 1945 Age: 62 years Race: 1 Room: Bed: Height: 72 in ( 182.9 cm ) Study Date: November 07, 2007 Patient status: Outpatient Weight: 220 lb ( 100 kg ) Access. #: [id number] POC: Attending MD: John Performing MD: John Indications and History: HISTORY: Prior [...] 11:25:41 Procedure Note Provider, Historical - 11/25/2007 [place] [address] [place] [address] [email or web address] Cardiac Catheterization Comprehensive Report Patient: Gregory Scherer Study ID: [id number] Gender: Jay : 1945 Age: 62 years Race: 1 Room: Bed: Height: 72 in ( 182.9 cm ) Study Date: November 07, 2007 Patient status: Outpatient Weight: 220 lb ( 100 kg ) Access. #: [id number] POC: Attending MD: John Performing MD: John Indications and History: HISTORY: Prior cardiovascular procedures: of the distal RCA ( Sep 2007 ). 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 Now admittedtoday for elective PCI of a [...] Coronary atherosclerosis of unspecified type of vessel, [place] or graft documented in this encounter Care Teams Program Director/Traffic Director Relationship Specialty Start Date End Date Alejandro Flynn MD [address] [place] [address] PCP - General Internal Medicine 10/31/24 documented as of this encounter
--- OUTSIDE RECORDS SUMMARY | 2024-10-31 15:56 | XMS_ITS | Encounter Summary ---
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) Procedures PET TUMOR OR INFECTION IMG W CT SKB MD Jose Armando Carroll MD [address] [place] [phone] Phone: tel: fax: Referral ID Status Reason Start Date Expiration Date Visits Requested Visits Authorized [id number] Pending Review CRS to Schedule 10/30/2024 11/30/2025 1 1 RDS MANAGER * Eval and Treat (Routine) - Open Specialty Diagnoses / Procedures Referred By Contac t Referred To Contact Oncology Diagnoses 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) Procedures CA OFFICE/OUTPATIENT ESTABLISHED MOD MDM 30 MIN CA OFFICE/OUTPATIENT NEW MODERATE MDM 45 MINUTES Jose Armando Carroll MD [address] [place] [phone] Phone: tel: fax: Referral ID Status Reason Start Date Expiration Date V isits Requested Visits Authorized [id number] Open STL CTS 10/30/2024 10/31/2025 1 1 RDS MANAGER Reason for Visit * Reason Comments Establish Care Cancer Encounter Details Date Type Department Care Team (Late st Contact Info) Description 10/30/2024 4:00 PM RECORDS MANAGER Office Visit [facility] Oncology and Hematology - [place] [address] [facility] [address] [place] [address] Jose Armando Carroll MD [address] 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) (Primary Dx) Social History Tobacco Use Types Packs/Day Years Used Date Smoking Tobacco: Former Cigarettes 0 09/20/2021 - 09/20/1965 Smokeless Tobacco: Never Tobacco Cessation:Counseling Given: Not Answered Alcohol Use Standard Drinks/Week Comments Yes 0 (1 standard drink = 0.6 oz pur e alcohol) Occasionally Sex and Gender Information Value Date Recorded Sex Assigned at Not on file Legal Sex Male 5:30 AM RECORDS MANAGER Gender Identity Not on file Sexual Orientation Not on file documented as of this encounter Last Filed Vital Signs Vital Sign Reading Time Taken Comments Blood Pressure 122/81 10/30/2024 3:39 PM RECORDS MANAGER Pulse 87 10/30/2024 3:39 PM RECORDS MANAGER Temperature 36.2 C (97.1 F) 10/30/2024 3:39 PM RECORDS MANAGER Respiratory Rate 14 10/30/2024 3:39 PM RECORDS MANAGER Oxygen Saturation 98% 10/30/2024 3:39 PM RECORDS MANAGER Inhaled Oxygen Concentration - - Weight 59.9 kg (132 lb) 10/30/2024 3:39 PM RECORDS MANAGER Height 182.9 cm (6') 10/30/2024 3:39 PM RECORDS MANAGER Body Mass Index 17.9 10/30/2024 3:39 PM RECORDS MANAGER documented in this encounter Progress Notes * Jose Armando Carroll MD - 10/30/2024 4:12 PM CST Hematology-oncology consult Note Requesting Physician Primary Care Physician No primary care provider on file. Problem list There is no problem list on file for this patient. Previous TREATMENT ? Measurable Disease ? Reason for Visit Gregory Scherer is a 79 y.o. male who was referred for consultation for metastatic esophageal cancer. 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 Pathology cameback positive for HER2/ned negative adenocarcinoma of esophagus. Patient had CT scan chest abdomen pelvis done that showed multiple liver masses and esophageal mass. Patient has chronic back pain andhas been using morphine pump. He denies any diarrhea and constipation. No melena hematochezia. He has been eating poorly and complain of tiredness and fatigue. He was discharged from the hospital on October 28, 2024. He had Mediport placed prior to the discharge. No other new complaints. Past Medical History Past Medical History: Diagnosis Date Depression Diverticulitis History of heart attack Hyperlipidemia Malignant neoplasm (CMS/HCC) Tinnitus Urinary tract infection, site not specified 2017,2018,2019,2020,2021,2022,2023,2024 Surgical History Past Surgical History: Procedure Laterality Date HX APPENDECTOMY 1975 HX CORONARY STENT PLACEMENT 2007 HX ESOPHAGEAL SURGERY Esophageal Stent 2024 HX EYE SURGERY Right 1959 HX LAMINECTOMY 2022 HX REPAIR FLEXOR / EXTENSOR TENDON OF FOREARM / WRIST Left 1996 HX ROTATOR CUFF REPAIR Right 1998 Medications Current Outpatient Medications Medication Sig Dispense Refill atorvastatin (LIPITOR) 20 mg tablet Take 20 mg by mouth daily. mirtazapine (REMERON) 30 mg tablet Take 30 mg by mouth daily at bedtime. Gemtesa 75 mg Tablet Take 75 mg by mouth daily at bedtime. naproxen (NAPROSYN) 375 mg tablet Take 375 mg by mouth 2 times daily as needed for Pain. aspirin (ECOTRIN EC) 81 mg Tablet, Delayed Release (E.C.) Take 81 mg by mouth daily. cholecalciferol, Vitamin D3, (VITAMIN D3) 25 mcg (1,000 unit) Capsule Take 2,000 Units by mouth daily. cetirizine (ZyrTEC) 10 mg tablet Take 10 mg by mouth 1 time daily as needed for Allergies. IRON PS [id number] ACID ORAL Take by mouth daily. acetaminophen (TYLENOL) 325 mg tablet Take 325 mg by mouth Continuous as needed for Pain. sennosides-docusate sodium (SENNA-S) 8.6-50 mg tablet Take 1 Tablet by mouth daily. HYDROcodone-acetaminophen (NORCO) 10-325 mg Tablet Take 1 Tablet by mouth. lidocaine (LIDODERM) 5 % Adhesive Patch, Medicated Apply 1 Patch to skin as directed daily. nitroglycerin (NITROSTAT) 0.4 mg Tablet, Sublingual Place 0.4 mg under tongue every 5 minutes as needed for Chest Pain. sucralfate (CARAFATE) 100 mg/mL suspension Take 1 Gram by mouth 4 times daily. pantoprazole (PROTONIX) 40 mg Tablet, Delayed Release (E.C.) Take 40 mg by mouth 2 times daily. trimethoprim (TRIMPEX) 100 mg tablet Take 100 mg by mouth daily at bedtime. ROPivacaine 2 mg/mL (0.2 %) Solution by See Admin Instructions route continuously. No current facility-administered medications for this visit. Allergies No Known Allergies Immunizations: There is no immunization history on file for this patient. Family History Family History Problem Relation Name Age of Onset Prostate Cancer Father Heart Failure Mother BLOOD CLOT THAT HIT HER LUNG IN HER 40'S THAT PASSED THROUGH HEART TO LUNG No Known Problems Sister No Known Problems Child Social History Social History Tobacco Use Smoking status: Former Types: Cigarettes Start date: 09/20/2021 Quit date: 09/20/1965 Years since quittin.1 Smokeless tobacco: Never Substance Use Topics Alcohol use: Yes Comment: Occasionally Review of Systems Constitutional: Patient did not mention fever; no night sweats; no anorexia; no weight loss, complain of tiredness and fatigue NEENT: Patient did not mention headache; no change in vision; no change in hearing; no sore throat;no dysphagia Respiratory: Patient did not mention shortness of breath; no pleuritic chest pain; no cough; no hemoptysis Cardiac: Patient did not mention cardiac-like chest pain; no palpitations; no orthopnea; no PND; noDOE GI: Patient did not mention abdominal pain; no nausea; no vomiting; no diarrhea; no hematochezia; no melena : Patient did not mention dysuria; no frequency; no hesitancy; no hematuria DATA PROCESSING CLERK: Musculosketetal: Patient did not mention bone pain; no arthralgia; no joint swelling; no myalgia; Skin: Patient did not mention pruritis; no rash; no petechiae; no ecchymoses Endocrine: Patient did not mention polydipsia; no polyuria; no unusual weight gain Neuro: Patient did not mention headache; no change in vision; no sensory changes; no muscle weakness; no confusion; no seizures Psych: Patient did not mention anxiety; no depression; Physical Exam Vitals: As per nursing note Constitutional: Well developed, well nourished, no acute distress, non-toxic appearance Teeth and gum. No signs of infection or swelling. Eyes: PERRL, conjunctiva normal HEENT: Atraumatic, external ears normal, nose normal, oropharynx moist, no pharyngeal exudates. no sinus tenderness Neck- normal range of motion, no tenderness, supple Respiratory: No respiratory distress, normal breath sounds, no rales, no wheezing Cardiovascular: Normal rate, normal rhythm, no murmurs, no gallops, no rubs GI: Soft, nondistended, normal bowel sounds, nontender, no splenomegaly, no hepatomegaly, no mass, no rebound, no guarding : No costovertebral angle tenderness Musculoskeletal: No edema, no tenderness, no deformities. Back- no tenderness Integument: Well hydrated, no rash, Digits and nails inspection normal Lymphatic: No lymphadenopathy noted Neurologic: Alert & oriented x 3, CN 2-12 normal, normal motor function, normal sensory function, no focal deficits noted Psychiatric: Speech and behavior appropriate ? labs No results found for this or any previous visit (from the past 24 hours). Pathology ? Imaging & Other Studies Performance Status? ECOG performance status 2 Assessment / Plan: ? 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 [address] scan chest abdomen and pelvis done on October 22, 2024 showed innumerable areas of decreased attenuation within the liver compatible with metastatic disease consistent with patient known esophageal cancer. There is left paratracheal lymphadenopathy. I have discussed this finding with patient and the family in detail. We will order the PET scan as well as chemotherapy teaching for FOLFOX and pembrolizumab regimen. I will order [employer] Nex[employer] ration sequencing. I have discussed the side effects of chemotherapy in detail. We will start treatment hopefully next week. I will see him back with cycle #2 of chemotherapy. I have answered all questions to patient and the family satisfaction. Chronic back pain. Patient is on morphine pump as well as on hydrocodone. Normocytic anemia. Will continue to observe and provide necessary replacement therapy. Thank you very much [facility] allowing [facility] Please feel free to contact if I can be of any further assistance in your patient???s care requiring hematology or oncology evaluation. Sincerely, ? ? Jose Armando Carroll M.D. cell TOBACCO COUNSELING He is not a tobacco/nicotine user. Jose Armando Carroll MD ,10/30/2024 4:14 PM ? Total time spent 60 minutes, two third of the total time spent counseling patient [id number]. CC:? RDS MANAGER documented in this encounter Plan of Treatment Upcoming Encounters Date Type Department Care Team (Late st Contact Info) Description 11/07/2024 9:15 AM RECORDS MANAGER Appointment 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
--- OUTSIDE RECORDS SUMMARY | 2024-10-31 15:56 | XMS_ITS | Encounter Summary ---
Author Organization [facility] [employer] [facility] Address [address] [place] [address] Care Team Providers Care Machine Adjuster Name Role Phone Alejandro Flynn MD Primary Care Provider + Encounter Details Date Type Department Care Team (Late Contact Info) Description 10/31/2024 Orders Only [facility] Oncology and Hematology - [place] [address] 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) (Primary Dx) Social History Tobacco Use Types Packs/Day Years Used Date Smoking Tobacco: Former Cigarettes 0 09/20/2021 - 09/20/1965 Smokeless Tobacco: Never Alcohol Use Standard Drinks/Week Comments Yes 0 (1 standard drink = 0.6 oz pur e alcohol) Occasionally Sex and Gender Information Value Date Recorded Sex Assigned at Not on file Legal Sex Male 5:30 AM AUTOMATED EQUIPMENT ENGINEER TECHNICIAN Gender Identity Not on file Sexual Orientation Not on file documented as of this encounter Plan of Treatment Upcoming Encounters Date Type Department Care Team (Late st Contact Info) Description 11/07/2024 9:15 AM AUTOMATED EQUIPMENT ENGINEER TECHNICIAN Appointment [facility] Nuclear Medicine [address] [place] [phone] [id number] Jose Armando Carroll MD [address] [facility] [address] [place] [address] Pending Results Name Type Priority Associated Diagnoses Date /Time TEMPUS XT DNA AND RNA Lab Routine 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) 10/31/2024 11:08 AM AUTOMATED EQUIPMENT ENGINEER TECHNICIAN TEMPUS XT NORMAL BLOOD Lab Routine 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) 10/31/2024 11:08 AM AUTOMATED EQUIPMENT ENGINEER TECHNICIAN Scheduled Orders Name Type Priority Associated Diagnoses Orde r Schedule TEMPUS XT DNA AND RNA Lab Routine 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) Expected: 10/31/2024, Expires: 10/31/2025 TEMPUS XF Lab Routine 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
== END 2024-10-31 15:16 | disposition home or self-care (01) ==
LOC: ANHLAB 15:16
PROVIDERS: PCP Internal Medicine; Visit Provider Internal Medicine Hematology & Oncology
DX: C15.5 Malignant neoplasm of lower third of esophagus (principal)
CPT/HCPCS: 36415

== ENCOUNTER 2024-11-20 12:07 | Outpatient (CLI) | payer MEDICARE, SELFPAY | END 2024-11-20 12:08 | disposition home or self-care (01) | PROVIDERS: PCP Internal Medicine; Visit Provider Nurse Practitioner | DX: C15.9 Malignant neoplasm of esophagus, unspecified (principal) | CPT/HCPCS: 74018 ==

== ENCOUNTER 2024-12-31 10:01 | Inpatient (IN) | payer SELFPAY ==
[2024-12-31] VITALS (12 sets, daily range): BP systolic 111–143; BP diastolic 59–102; PULSE 54–92; RESP 12–20; TEMP 36.1–36.6; O2SAT 93–100; BMI 18.6
--- NOTE | ~2024-12-31 | XR_ITS ---
[id number] Ordering provider: Jamilah Brody MD History: . fall . Comparison: None. FINDINGS: BONES: No acute fracture or dislocation. JOINT SPACES: Slight narrowing of the lateral compartment. SOFT TISSUES: Vascular calcification IMPRESSION: No acute osseous abnormality right knee. Reviewed, dictated and finalized at location A.
--- NOTE | ~2024-12-31 | CT_ITS ---
Procedure: CT hip RT wo con Ordering provider: Jamilah Brody MD History: . FRACTURE . Comparison: None. Technique: Thin slice axial CT of the No IV contrast was given. Sagittal and coronal reformatted imag es were also obtained and reviewed. Radiation reduction technique utilized.The dose-length product wa s 205.32 mGy-cm. Findings: BONES: Comminuted fracture involving the intertrochanteric area with displacement of the lesser troch anter. JOINT SPACES: Severe osteoarthritic changes of the right and left hip. SOFT TISSUES: Vascular calcifications. Aneurysmal dilatation of the distal aorta measuring 4.2 cm. Sl ightly dilated common iliac arteries. Thickened wall of the rectum suggestive of proctitis. Phillips's catheter seen in the urinary bladder.. IMPRESSION: Comminuted fracture in the right intertrochanteric area of the femur. 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 Proctitis is highly suggestive. Reviewed, dictated and finalized at location A.
--- NOTE | ~2024-12-31 | XR_ITS ---
XR chest 1V portable Ordering provider: Jamilah Brody MD History: 79 years Male with . Pre op . Comparison: October 25, 2024 FINDINGS: MEDIASTINUM: The cardiac silhouette is not enlarged. Right Port-A-Cath with the tip overlying the sup erior vena cava. LUNGS: No infiltrates, effusions or pneumothorax. Prominent bronchovascular markings in the lower lob es. OTHER: Stimulator is projected over the left and right upper abdomen No free air under the diaphragm. Postoperative changes in the cervical spine. Degenerative changes in the thoracic spine. IMPRESSION: Prominent bronchovascular markings in the lower lobes. Other appearances are unremarkable. Reviewed, dictated and finalized at location A. IMPRESSION: Prominent bronchovascular markings in the lower lobes. Other appearances are un remarkable.
--- NOTE | ~2024-12-31 | XR_ITS ---
XR knee LT 3V Ordering provider: Jamilah Brody MD History: . fall . Comparison: None. FINDINGS: BONES: No acute fracture or dislocation. Postoperative changes in the distal left femur. Small chip of bone is seen in the superior aspect of the patella suggestive of a fracture osteophyte. JOINT SPACES: Normal. SOFT TISSUES: Vascular calcifications IMPRESSION: Possible fracture of an osteophyte in the superior patella. Otherwise no acute osseous abnormalities. Reviewed, dictated and finalized at location A.
--- NOTE | ~2024-12-31 | XR_ITS ---
XR femur RT min 2V Ordering provider: Jamilah Brody MD History: . fall c/o right femur pain. Landed on knees . Comparison: None. FINDINGS: BONES: Fracture of the lesser trochanter with lucency in the intertrochanteric area suggestive of an intertrochanteric fracture. CT is advised. Transverse fracture in the proximal femoral metastasis at the level of the lesser trochanter is also not excluded. JOINT SPACES: Mild right hip osteoarthritic changes. SOFT TISSUES: Vascular calcifications. IMPRESSION: Fracture of the lesser trochanter with highly suggestive intertrochanteric fracture. Transverse fract ure in the proximal metaphysis of the femur at the level of the lesser trochanter is not excluded. Reviewed, dictated and finalized at location A. IMPRESSION: Fracture of the lesser trochanter with highly suggestive intertrochanteric frac ture. Transverse fracture in the proximal metaphysis of the femur at the level of the lesser trochanter is not excluded.
--- NOTE | ~2024-12-31 | CT_ITS ---
Procedure: CT knee LT wo con Ordering provider: Jamilah Brody MD History: . FRACTURE . Comparison: None. Technique: Thin slice axial CT of the No IV contrast was given. Sagittal and coronal reformatted imag es were also obtained and reviewed. Findings: BONES: Fracture osteophytes seen in the superior aspect of the patella. Postoperative changes in the distal femur. JOINT SPACES: Normal. SOFT TISSUES: Soft tissue density seen in the area of the quadriceps tendon. IMPRESSION: Highly suggestive fracture osteophyte in the superior patella with soft tissue swelling anterior to t he quadriceps tendon suggestive of edema. Postoperative changes in the distal femur. Reviewed, dictated and finalized at location A. IMPRESSION: Highly suggestive fracture osteophyte in the superior patella with soft tissue swelling anterior to the quadriceps tendon suggestive of edema. Postoperative changes in the distal femur.
--- NOTE | ~2024-12-31 | CT_ITS ---
CT chest abdomen wo con Ordering provider: Lauren Marsh APRN History: . re eval of esophageal ca(mets to liver,lungs) . Comparison: October 22, 2022 Technique: CT chest without IV contrast. CT abdomen and pelvis without oral and IV contrast. Radiatio n reduction technique utilized.The dose-length product was 716.68 mGy-cm. FINDINGS: The study is limited due to lack of IV contrast. CHEST: Right Port-A-Cath with the tip in the superior vena cava. --VISUALIZED THORACIC INLET: Normal as visualized. --MEDIASTINUM: Aorta/coronary arteries: Mild atheromatous disease. Heart/other: The heart is not enlarged. Lymph nodes: No mediastinal or hilar adenopathy. Precarinal lymph node is seen measuring 1.3 cm. --LUNGS: No pulmonary nodules or masses. No infiltrates or effusions. No pneumothorax. Emphysematous/ fibrotic changes are seen in the lungs. --MUSCULOSKELETAL: Soft tissues: The superficial soft tissues are normal. Bones: Age appropriate degenerative changes of the spine. ABDOMEN/PELVIS: --MUSCULOSKELETAL: Bones: Age appropriate degenerative changes of the spine. Superficial soft tissues: The superficial soft tissues are normal. --UPPER ABDOMINAL ORGANS: Liver: Multiple hypodensities in the liver suggestive of metastatic lesions. Gallbladder: Not demonstrated. Spleen: Normal. Stomach/duodenum: thickening of the distal esophagus. Stent is seen inside of the stomach most likely migrated from the esophagus. Pancreas: Not well demonstrated. Adrenals: Normal. Kidneys: Possible bilateral kidney stones versus vascular calcifications. --BOWEL AND MESENTERY: Colon: No evidence of diverticulitis.. Appendix is not demonstrated. Small Bowel: Normal. No obstruction. Peritoneum/mesentery: No free air or free fluid. No mesenteric lymphadenopathy. --RETROPERITONEUM: Aneurysmal dilatation of the distal aorta measuring 4.3 x 3.1 cm. Dilatation of t he iliac arteries seen. Moderate atheromatous disease of the abdominal aorta. No retroperitoneal lym phadenopathy. IMPRESSION: CHEST: 1. No evidence of acute cardiopulmonary pathology. ABDOMEN/PELVIS: 1. Multiple metastatic lesions in the liver.. 2. Migrated stent from the esophagus into the stomach. 3. Thickening of the distal esophagus. 4. Unchanged aneurysm seen in the distal aorta and iliac arteries.. 5. No evidence of diverticulitis or intestinal obstruction seen. Reviewed, dictated and finalized at location A.
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
--- NOTE | 2024-12-31 10:51 | ECG_ITS ---
Test Date: 2024-12-31 12:28:53 Measurements Intervals [place] Rate: 76 P: 0 ND: 0 QRS: -46 QRSD: 134 T: 89 QT: 449 QTc: 506 Interpretive Statements SINUS RHYTHM WITH ATRIAL PREMATURE COMPLEXES RIGHT BUNDLE BRANCH BLOCK LEFT ANTERIOR FASCICULAR BLOCK BASELINE ARTIFACT- I, II, III, AVR, AVL, AVF, V1-V6 ABNORMAL ECG Compared to ECG 10/22/2024 18:03:09 NO SIGNIFICANT CHANGE Electronically Signed On 12-31-2024 14:54:14 CDT by Mulugeta Zayas D.O.
[2024-12-31 11:11] LABS: Basophils Percent Auto 1.2 % (0.2-1.2); Eosinophils Absolute Auto 0.1 K/mm3 (0-0.3); Eosinophils Percent Auto 5.1 % (0-4.4); Hematocrit 33.1 % (42.0-52.0); Hemoglobin 10.6 g/dL (14.0-18.0); Immature Granulocyte Absolute 0.01 K/mm3 (0.00-0.031); Immature Granulocyte Percent A 0.4 % (0-0.5); Lymphocytes Absolute Auto 0.78 K/mm3 (0.9-3.2); Lymphocytes Percent Auto 30.7 % (18.3-44.2); Mean Corpuscular Hemoglobin 30.9 pg (26-34); Mean Corpuscular Volume 96.5 fl (80-100); Mean Platelet Volume 9.7 fl (7.4-10.4); Monocytes Absolute Auto 0.1 K/mm3 (0.1-0.6); Monocytes Percent Auto 4.7 % (2.6-8.5); Neutrophils Absolute Auto 1.5 K/mm3 (1.3-6.7); Neutrophils Percent Auto 57.9 % (45.5-73.1); Platelet Count Result 136 k/mm3 (150-375); Red Blood Count 3.43 M/mm3 (4.6-6.20); Red Cell Distribution Width 16.4 % (11.5-14.5); White Blood Count 2.5 K/mm3 (4.5-10.0)
[2024-12-31 11:26] LABS: INR 1.1; Partial Thromboplastin Time 25.3 Seconds (22.3-36.8); Prothrombin Time 14.5 Seconds (11.1-14.7)
[2024-12-31 11:28] LABS: Alanine Aminotransferase 57 U/L (6-50); Albumin Level 3.5 g/dL (3.5-5.1); Alkaline Phosphatase 74 U/L (38-126); Anion Gap 4 mmol/L (4-12); Aspartate Amino Transferase 42 U/L (17-59); Bilirubin,Total 0.5 mg/dL (0.2-1.3); Blood Urea Nitrogen 35 mg/dL (9-20); Calcium 9.4 mg/dL (8.4-10.2); Carbon Dioxide 28 mmol/L (22-30); Chloride 104 mmol/L (98-107); Estimated CRCL calculation 70 ml/min; Estimated Glomerular Filt Rate > 60; Glucose 114 mg/dL (65-110); Potassium 3.8 mmol/L (3.4-5.0); Sodium 136 mmol/L (137-145)
[2024-12-31 13:11] LABS: Add Urine Microscopic? YES; Appearance Urine Clear (Clear); Bacteria Urine None Seen /hpf; Bilirubin Urine Negative (Negative); Blood Urine Negative (Negative); Color Urine Yellow (Yellow); Glucose Urine UA Negative (Negative); Ketones Urine Negative (Negative); Leukocyte Esterase Ur Negative LEU/UL (Negative); Nitrate Urine Negative (Negative); Non Pathogenic Casts 0-2; Protein Urine Trace mg/dL (Negative); Specific Grav Ur 1.023 (1.001-1.035); Squamous Epithelial Cell Urine Occasional /hpf (Few); Urobilinogen Urine 0.2 mg/dL (<2.0); WBC Urine 0-5 /hpf (0-3); pH Urine 5.5 (5.0-9.0)
[2024-12-31] MEDS: SODIUM CHLORIDE 0.9% IV 1,000 ML 125 ML IV CONT (13:47)
[2024-12-31] MEDS: HYDROmorphone HCL INJ (*CRX) 1 MG/ML SYR 0.5 MG IV PUSH ×2 (14:09→20:41)
[2024-12-31] MEDS: ONDANSETRON INJ 4 MG/2 ML VIAL IV PUSH (14:09)
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
--- NOTE | 2024-12-31 15:38 | ADMGEN ---
This patient, Gregory Scherer, was admitted to Medical Room 246-01. Patient/family oriented to hospital policies and general routines including ID bracelet, bed and alarms, visiting hours, pain management, procedures, bathroom and other care routines, personal items, smoking policy, room service/diet, and visiting hours. Information on how to activate the Rapid Response Team has been discussed. Patient/Family are encouraged to report perceived risks to care and to ask questions if they do not understand what they are told or what they should do.
[2024-12-31] MEDS: PANTOPRAZOLE 40 MG TABLET PO (18:51)
[2024-12-31] MEDS: SENNOSIDES 8.6 MG TABLET 25.8 MG PO (20:34)
[2024-12-31] MEDS: MIRTAZAPINE SOLTAB 15 MG TAB.DISPER PO (20:34)
[2025-01-01 05:32] LABS: Basophils Percent Auto 1.2 % (0.2-1.2); Eosinophils Absolute Auto 0.1 K/mm3 (0-0.3); Eosinophils Percent Auto 1.7 % (0-4.4); Hematocrit 28.8 % (42.0-52.0); Immature Granulocyte Absolute 0.02 K/mm3 (0.00-0.031); Immature Granulocyte Percent A 0.6 % (0-0.5); Lymphocytes Percent Auto 46.4 % (18.3-44.2); Mean Corpuscular HGB Conc 31.3 g/dl (32-36); Mean Corpuscular Volume 99.3 fl (80-100); Mean Platelet Volume 9.6 fl (7.4-10.4); Monocytes Absolute Auto 0.3 K/mm3 (0.1-0.6); Monocytes Percent Auto 7.5 % (2.6-8.5); Neutrophils Absolute Auto 1.5 K/mm3 (1.3-6.7); Neutrophils Percent Auto 42.6 % (45.5-73.1); Platelet Count Result 134 k/mm3 (150-375); Red Cell Distribution Width 16.4 % (11.5-14.5); White Blood Count 3.5 K/mm3 (4.5-10.0)
[2025-01-01 05:46] LABS: Anion Gap 8 mmol/L (4-12); Blood Urea Nitrogen 30 mg/dL (9-20); Calcium 8.9 mg/dL (8.4-10.2); Carbon Dioxide 26 mmol/L (22-30); Chloride 103 mmol/L (98-107); Estimated CRCL calculation 70 ml/min; Estimated Glomerular Filt Rate > 60; Glucose 95 mg/dL (65-110); Potassium 3.7 mmol/L (3.4-5.0); Sodium 137 mmol/L (137-145)
[2025-01-01 06:00] VITALS: BP 135/51; PULSE 65; RESP 18; TEMP 36.1; O2SAT 100
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
--- NOTE | 2025-01-01 08:15 | PM.IMPN ---
Progress Note: A&P Assessment and Plan (1) Intertrochanteric fracture of right femur: Qualifiers: Encounter type: initial encounter Fracture alignment: displaced Fracture type: closed Qualified Code(s): S72.141A - Displaced intertrochanteric fracture of right femur, initial encounter for closed fracture Code(s): S72.141A - Displaced intertrochanteric fracture of right femur, initial encounter for closed fracture Status: Acute Assessment and Plan: Femur XR, R: Fracture of the lesser trochanter with highly suggestive intertrochanteric fracture. Transverse fracture in the proximal metaphysis of the femur at the level of the lesser trochanter is not excluded. Hip CT: Comminuted fracture in the right intertrochanteric area of the femur. 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 Proctitis is highly suggestive. Orthopedics consulted, requesting Sebastian VILLANUEVA. Spoke with provider, patient will likely be poor surgical candidate - however will make NPO at midnight in case of surgical clearance. aware. Analgesics p.r.n. If patient is a surgical candidate, will need PT/OT postop Care coordination for rehab placement versus hospice dependent on if patient is surgical candidate. Bed rest. no acute interventions for surgical repair-ortho discussed options with family supportive measures for now (2) Left patella fracture: Qualifiers: Encounter type: initial encounter Fracture alignment: nondisplaced Fracture morphology: osteochondral Fracture type: closed Qualified Code(s): S82.015A - Nondisplaced osteochondral fracture of left patella, initial encounter for closed fracture Code(s): S82.002A - Unspecified fracture of left patella, initial encounter for closed fracture Status: Suspected Assessment and Plan: Knee XR, L: Possible fracture of an osteophyte in the superior patella. Otherwise no acute osseous abnormalities. Knee CT: Highly suggestive fracture osteophyte in the superior patella with soft tissue swelling anterior to the quadriceps tendon suggestive of edema. Postoperative changes in the distal femur. Orthopedics consulted. Analgesics p.r.n. (3) Weakness: Code(s): R53.1 - Weakness Status: Acute Assessment and Plan: ongoing, chronic. ambulates with walker or utilizes wheelchair as of late. care coordination for rehab placement versus hospice. (4) Primary adenocarcinoma of esophagus with metastasis: Code(s): C15.9 - Malignant neoplasm of esophagus, unspecified Status: Acute Assessment and Plan: Hx of stage IV esophageal cancer with metastasis. Follows with Glen VILLANUEVA Last chemotherapy treatment 5 days ago, 12/27. (5) Obstructive sleep apnea (adult) (pediatric): Code(s): G47.33 - Obstructive sleep apnea (adult) (pediatric) Status: Chronic Assessment and Plan: Resolved with weight loss due to chemo. Plan Diet: Heart healthy GI Prophylaxis: Not currently indicated DVT Prophylaxis: SCDs Lines: Peripheral Code Status: DNR Time Spent With Patient Time with patient: 25 - 35 minutes Subjective Date/time seen: 01/01/25 08:15 Interval history: 79 y/o M with PMH of anemia, RLS, sleep apnea, mild pulmonary emphysema, esophageal cancer (stage IV w/ mets to liver, lung, diaphragm, lymph nodes S/P chemotherapy and immunotherapy), HLD, osteoporosis, aortic stenosis, diastolic dysfunction, spinal stenosis, stenosis of the bilateral carotid arteries, BPH, GERD, peripheral vascular disease, hypertension, coronary artery disease admitted for a ground level fall. He didnot hit hit head or loss of consciousness. ED workup showed: WBC 2.5, hemoglobin 10.6 (at baseline), sodium 136, creatinine 0.66 and GFR >60, glucose 114, ALT 57, UA unremarkable except for in 3-5 RBC. Femur XR showed a fracture of the lesser trochanteric with highly suggestive intratrochanteric fracture, transverse fracture of the proximal metaphyseal of the femur at the level of the lesser trochanteric is not excluded. R knee XR showed no acute osseous abnormality. L knee XR showed possible fracture of an osteophyte in the superior patella, otherwise no acute abnormalities. CXR showed prominent bronchovascular markings in the lower lobes, otherwise appearance is unremarkable. Knee CT showed highly suggestive fracture osteophyte in the superior patella soft tissue swelling anterior to the quadriceps tendon suggestive of edema, postoperative changes in the distal femur. Hip CT showed comminuted fracture of the right intratrochanteric area of the femur, aneurysm in the distal aorta, proctitis is highly suggestive. Pt is seen and examined. Ortho is consulted. Due to multiple comorbidities- pt and family elected to proceed with conservative measures. Will consult care coordiantion bess croft comfort measures/hospice as family were discussing this as an options. pt is restin on his rt side- states taht is least painful position. IV fluids for now. not much appetite. Review of Systems Review of Systems: All systems reviewed & are unremarkable except as noted in HPI and below (limited due to somnolence) Exam Const: General: comfortable and no acute distress Other: , male, chronically ill-appearing, cachectic HENMT: Face/Nose/Sinus: Normal nares present Mouth: Yes dry mucous membranes Eyes: General: appearance normal, both eyes and all related structures Sclera: sclerae normal Pupils: Equal, round and reactive pupils present EOM: EOMs intact bilaterally Resp: Effort & Inspection: normal respiratory effort Auscultation: clear to auscultation bilaterally Cardio: Rate: regular rate Rhythm: regular rhythm Other: S1-S2 present without murmur, rub, ectopy GI: Other: Abdomen soft, nondistended, nontender. Normoactive bowel sounds in all quadrants. Skin: General skin exam: no rashes or lesions noted Wounds: no wounds Other: Slight purple hue to bilateral feet, blanches. Neuro: Cranial nerves: Yes Equal, round and reactive pupils present Other: Very somnolent, received Dilaudid prior to exam. A&O times 3-4 at baseline. Moving all extremities. Sensation intact. Extrem: Other: DP pulses nonpalpable. Dopplerable bilaterally. Psych: Other: Unable to assess due to somnolence. Objective Data Vital Signs Vital Signs: Vital Signs - 24 hr 12/31/24 10:10 12/31/24 10:18 12/31/24 10:32 Temperature 97.8 F 97.8 F Pulse Rate 72 72 71 Respiratory Rate 12 16 12 Blood Pressure 142/73 H 142/73 H 143/66 H Pulse Oximetry 100 100 100 Oxygen Delivery Room Air 12/31/24 11:01 12/31/24 11:31 12/31/24 12:01 Temperature 97.9 F 97.6 F Pulse Rate 75 70 70 Respiratory Rate 18 14 20 Blood Pressure 111/59 L 120/59 L 120/65 Pulse Oximetry 100 100 100 Oxygen Delivery 12/31/24 12:31 12/31/24 13:01 12/31/24 13:40 Temperature 97.9 F 97.8 F Pulse Rate 85 75 85 Respiratory Rate 17 18 20 Blood Pressure 139/102 H 134/78 130/76 Pulse Oximetry 98 97 100 Oxygen Delivery 12/31/24 14:01 12/31/24 15:27 12/31/24 19:30 Temperature 97.7 F 97.7 F Pulse Rate 92 87 Respiratory Rate 18 14 Blood Pressure 112/78 121/70 Pulse Oximetry 98 98 Oxygen Delivery Room Air 12/31/24 20:00 12/31/24 22:00 01/01/25 06:00 Temperature 97 F L 97 F L Pulse Rate 54 L 65 Respiratory Rate 16 18 Blood Pressure 111/73 135/51 L Pulse Oximetry 93 100 Oxygen Delivery Room Air Intake/Output Intake/Output: Intake & Output 12/29/24 12/30/24 12/31/24 01/01/25 23:59 23:59 23:59 23:59 Intake Total 0 150 Output Total 400 Balance 0 -250 Meds/Results Medications: Active Medications Generic Name Dose Route Start Last Admin Trade Name Freq PRN Reason Stop Dose Admin Acetaminophen 650 mg 12/31/24 13:35 Acetaminophen 325 Mg Tablet PO Q4H PRN Mild Pain (1-3) or Fever Hydrocodone Bitart/Acetaminophen 1 tab 12/31/24 15:09 Hydrocodone/Acetaminophen (*Crx) 5-325 Mg Tablet PO Q6H PRN Pain Rated 4-6 Hydrocodone Bitart/Acetaminophen 1 tab 12/31/24 17:12 Hydrocodone/Acetaminophen (*Crx) 10-325 Mg Tablet PO Q8H PRN Pain Rated 4-6 Aspirin 81 mg 01/01/25 09:00 Aspirin 81 Mg Chewable Tablet PO DAILY [facility] Atorvastatin Calcium 20 mg 01/01/25 09:00 Atorvastatin 20 Mg Tablet PO QAM [facility] Escitalopram Oxalate 20 mg 01/01/25 09:00 Escitalopram Oxalate 10 Mg Tablet PO DAILY SHAHRIAR Hydromorphone HCl 0.5 mg 12/31/24 13:35 12/31/24 20:41 Hydromorphone Hcl Inj (*Crx) 1 Mg/Ml Syr IV PUSH 0.5 mg Q4H PRN Administration Pain Rated 7-10 Sodium Chloride 1,000 mls @ 125 mls/hr 12/31/24 13:35 12/31/24 13:47 Normal Saline Iv IV CONT 125 mls/hr .Q8H SHAHRIAR Administration Lidocaine 1 patch 12/31/24 17:12 Lidocaine 5% Patch TRANSDERM DAILY PRN Pain Megestrol Acetate 400 mg 01/01/25 09:00 Megestrol Acetate (*Chemo) Oral Susp 40 Mg/Ml Syr PO DAILY SHAHRIAR Mirtazapine 15 mg 12/31/24 21:00 12/31/24 20:34 Mirtazapine Soltab 15 Mg Tab.Disper PO 15 mg HS SHAHRIAR Administration Miscellaneous Information 0 each 12/31/24 00:01 Foster 10/325mg Duplicate With Foster 5mg/325mg Ordered For Pain 4-6. Please Clarify XX 01/30/25 00:00 CLARIFY SHAHRIAR Miscellaneous Information 0 each 12/31/24 00:01 Clarify Linked Order For Sucralfate- Not Sure Why Its Rectal??? XX 01/30/25 00:00 CLARIFY SHAHRIAR Naloxone HCl 0.1 mg 12/31/24 15:09 Naloxone Hcl 0.4 Mg/Ml Vial IV PUSH Q5MIN PRN Sedation Ondansetron HCl 4 mg 12/31/24 13:35 Ondansetron Inj 4 Mg/2 Ml Vial IV PUSH Q4H PRN Nausea Pantoprazole Sodium 40 mg 12/31/24 17:35 12/31/24 18:51 Pantoprazole 40 Mg Tablet PO 40 mg BID SHAHRIAR Administration Senna 25.8 mg 12/31/24 21:00 12/31/24 20:34 Sennosides 8.6 Mg Tablet PO 25.8 mg HS SHAHRIAR Administration Sucralfate 1,000 mg 12/31/24 17:12 Sucralfate Susp 100 Mg/Ml 10 Ml Udc PO ACHS PRN dysphagia Radiology Results: ITS Impressions Femur X-Ray 12/31/24 11:13 IMPRESSION: Fracture of the lesser trochanter with highly suggestive intertrochanteric fracture. Transverse fracture in the proximal metaphysis of the femur at the level of the lesser trochanter is not excluded. Knee X-Ray 12/31/24 11:17 IMPRESSION: Possible fracture of an osteophyte in the superior patella. Otherwise no acute osseous abnormalities. Chest X-Ray 12/31/24 11:22 IMPRESSION: Prominent bronchovascular markings in the lower lobes. Other appearances are unremarkable. Knee CT 12/31/24 13:45 IMPRESSION: Highly suggestive fracture osteophyte in the superior patella with soft tissue swelling anterior to the quadriceps tendon suggestive of edema. Postoperative changes in the distal femur. Hip CT 12/31/24 13:51 IMPRESSION: Comminuted fracture in the right intertrochanteric area of the femur. 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 Proctitis is highly suggestive. Labs Labs: Laboratory Results - last 24 hr 12/31/24 12/31/24 12/31/24 11:05 11:06 13:01 WBC 2.5 L RBC 3.43 L Hgb 10.6 L Hct 33.1 L MCV 96.5 MCH 30.9 MCHC 32.0 RDW 16.4 H Plt Count 136 L MPV 9.7 Immature Gran % (Auto) 0.4 Neut % (Auto) 57.9 Lymph % (Auto) 30.7 [place] % (Auto) 4.7 Eos % (Auto) 5.1 H Baso % (Auto) 1.2 Lymph # (Auto) 0.78 L [place] # (Auto) 0.1 Eos # (Auto) 0.1 Baso # (Auto) 0.0 Abs Immat Gran (auto) 0.01 Absolute Neuts (auto) 1.5 Absolute Nucleated RBC 0.000 Nucleated RBC % 0.0 PT 14.5 INR 1.1 APTT 25.3 Sodium 136 L Potassium 3.8 Chloride 104 Carbon Dioxide 28 Anion Gap 4 BUN 35 H Creatinine 0.66 L Estim Creat Clear Calc 70 Estimated GFR > 60 Glucose 114 H Calcium 9.4 Total Bilirubin 0.5 AST 42 ALT 57 H Alkaline Phosphatase 74 Total Protein 7.0 Albumin 3.5 Urine Color Yellow Urine Appearance Clear Urine pH 5.5 Ur Specific [place] 1.023 Urine Protein Trace Urine Glucose (UA) Negative Urine Ketones Negative Ur Blood (Man) Negative Urine Nitrate Negative Urine Bilirubin Negative Urine Urobilinogen 0.2 Leukocyte Esterase Rfl Negative Urine RBC 3-5 H Urine WBC 0-5 Ur Squamous Epith Cells Occasional Urine Bacteria None seen Urine Casts 0-2 01/01/25 05:09 WBC 3.5 L RBC 2.90 L Hgb 9.0 L Hct 28.8 L MCV 99.3 MCH 31.0 MCHC 31.3 L RDW 16.4 H Plt Count 134 L MPV 9.6 Immature Gran % (Auto) 0.6 H Neut % (Auto) 42.6 L Lymph % (Auto) 46.4 H [place] % (Auto) 7.5 Eos % (Auto) 1.7 Baso % (Auto) 1.2 Lymph # (Auto) 1.60 [place] # (Auto) 0.3 Eos # (Auto) 0.1 Baso # (Auto) 0.0 Abs Immat Gran (auto) 0.02 Absolute Neuts (auto) 1.5 Absolute Nucleated RBC 0.000 Nucleated RBC % 0.0 PT INR APTT Sodium 137 Potassium 3.7 Chloride 103 Carbon Dioxide 26 Anion Gap 8 BUN 30 H Creatinine 0.66 L Estim Creat Clear Calc 70 Estimated GFR > 60 Glucose 95 Calcium 8.9 Total Bilirubin AST ALT Alkaline Phosphatase Total Protein Albumin Urine Color Urine Appearance Urine pH Ur Specific [place] Urine Protein Urine Glucose (UA) Urine Ketones Ur Blood (Man) Urine Nitrate Urine Bilirubin Urine Urobilinogen Leukocyte Esterase Rfl Urine RBC Urine WBC Ur Squamous Epith Cells Urine Bacteria Urine Casts Quality VTE Prophylaxis VTE prophylaxis: mechanical ordered
[2025-01-01] MEDS: ESCITALOPRAM OXALATE 10 MG TABLET 20 MG PO (09:24)
[2025-01-01] MEDS: PANTOPRAZOLE 40 MG TABLET PO ×2 (09:24→18:16)
[2025-01-01] MEDS: ATORVASTATIN 20 MG TABLET PO (09:25)
[2025-01-01] MEDS: ASPIRIN 81 MG CHEWABLE TABLET PO (09:25)
[2025-01-01] MEDS: MEGESTROL ACETATE (*CHEMO) ORAL SUSP 40 MG/ML SYR 400 MG PO (09:25)
[2025-01-01] MEDS: HYDROmorphone HCL INJ (*CRX) 1 MG/ML SYR 0.5 MG IV PUSH (09:32)
[2025-01-01 12:08] VITALS: BMI 18.6
[2025-01-01] MEDS: SODIUM CHLORIDE 0.9% IV 1,000 ML 125 ML IV CONT ×3 (12:42→20:17)
[2025-01-01 14:00] VITALS: BP 120/54; PULSE 63; RESP 14; TEMP 37.1; O2SAT 100
[2025-01-01] MEDS: MIRTAZAPINE SOLTAB 15 MG TAB.DISPER PO (20:18)
[2025-01-01] MEDS: SENNOSIDES 8.6 MG TABLET 25.8 MG PO (20:18)
[2025-01-01 21:44] VITALS: BP 119/45; PULSE 66; RESP 16; TEMP 36.8; O2SAT 98
[2025-01-02] MEDS: SODIUM CHLORIDE 0.9% IV 1,000 ML 125 ML IV CONT ×2 (05:32→16:00)
[2025-01-02 06:00] VITALS: BP 155/54; PULSE 75; RESP 18; TEMP 36.4; O2SAT 99
[2025-01-02] MEDS: HYDROmorphone HCL INJ (*CRX) 1 MG/ML SYR 0.5 MG IV PUSH (06:19)
[2025-01-02] MEDS: MEGESTROL ACETATE (*CHEMO) ORAL SUSP 40 MG/ML SYR 400 MG PO (09:25)
[2025-01-02] MEDS: ASPIRIN 81 MG CHEWABLE TABLET PO (09:25)
[2025-01-02] MEDS: ESCITALOPRAM OXALATE 10 MG TABLET 20 MG PO (09:25)
[2025-01-02] MEDS: PANTOPRAZOLE 40 MG TABLET PO ×2 (09:25→17:07)
[2025-01-02] MEDS: ATORVASTATIN 20 MG TABLET PO (09:25)
[2025-01-02 09:50] VITALS: BP 130/50; PULSE 69; RESP 16; TEMP 36.2; O2SAT 100
[2025-01-02 13:39] VITALS: BP 125/51; PULSE 58; RESP 16; TEMP 36.3; O2SAT 95
--- NOTE | 2025-01-02 14:32 | P.PNIM_ITS ---
Progress Note: A&P Assessment and Plan (1) Intertrochanteric fracture of right femur: Qualifiers: Encounter type: initial encounter Fracture alignment: displaced Fracture type: closed Qualified Code(s): S72.141A - Displaced intertrochanteric fracture of right femur, initial encounter for closed fracture Code(s): S72.141A - Displaced intertrochanteric fracture of right femur, initial encounter for closed fracture Status: Acute Assessment and Plan: Femur XR, R: Fracture of the lesser trochanter with highly suggestive intertrochanteric fracture. Transverse fracture in the proximal metaphysis of the femur at the level of the lesser trochanter is not excluded. Hip CT: Comminuted fracture in the right intertrochanteric area of the femur. 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 Proctitis is highly suggestive. Orthopedics consulted, requesting Sebastian VILLANUEVA. Spoke with provider, patient will likely be poor surgical candidate - however will make NPO at midnight in case of surgical clearance. aware. Analgesics p.r.n. If patient is a surgical candidate, will need PT/OT postop Care coordination for rehab placement versus hospice dependent on if patient is surgical candidate. Bed rest. no acute interventions for surgical repair-ortho discussed options with family supportive measures for now (2) Left patella fracture: Qualifiers: Encounter type: initial encounter Fracture alignment: nondisplaced Fracture morphology: osteochondral Fracture type: closed Qualified Code(s): S82.015A - Nondisplaced osteochondral fracture of left patella, initial enco unter for closed fracture Code(s): S82.002A - Unspecified fracture of left patella, initial encounter for closed fracture Status: Suspected Assessment and Plan: Knee XR, L: Possible fracture of an osteophyte in the superior patella. Otherwise no acute osseous abnormalities. Knee CT: Highly suggestive fracture osteophyte in the superior patella with soft tissue swelling anterior to the quadriceps tendon suggestive of edema. Postoperative changes in the distal femur. Orthopedics consulted. Analgesics p.r.n. (3) Weakness: Code(s): R53.1 - Weakness Status: Acute Assessment and Plan: ongoing, chronic. ambulates with walker or utilizes wheelchair as of late. care coordination for rehab placement versus hospice. (4) Primary adenocarcinoma of esophagus with metastasis: Code(s): C15.9 - Malignant neoplasm of esophagus, unspecified Status: Acute Assessment and Plan: Hx of stage IV esophageal cancer with metastasis. Follows with Glen VILLANUEVA Last chemotherapy treatment 5 days ago, 12/27. (5) Obstructive sleep apnea (adult) (pediatric): Code(s): G47.33 - Obstructive sleep apnea (adult) (pediatric) Status: Chronic Assessment and Plan: Resolved with weight loss due to chemo. Plan Diet: Heart healthy GI Prophylaxis: Not currently indicated DVT Prophylaxis: SCDs Lines: Peripheral Code Status: DNR Time Spent With Patient Time with patient: 25 - 35 minutes Subjective Date/time seen: 01/02/25 14:32 Interval history: 79 y/o M with PMH of anemia, RLS, sleep apnea, mild pulmonary emphysema, esophageal cancer (stage IV w/ mets to liver, lung, diaphragm, lymph nodes S/P chemotherapy and immunotherapy), HLD, osteoporosis, aortic stenosis, diastolic dysfunction, spinal stenosis, stenosis of the bilateral carotid arteries, BPH, GERD, peripheral vascular disease, hypertension, coronary artery disease admitted for a ground level fall. He didnot hit hit head or loss of consciousness. ED workup showed: WBC 2.5, hemoglobin 10.6 (at baseline), sodium 136, creatinine 0.66 and GFR >60, glucose 114, ALT 57, UA unremarkable except for in 3-5 RBC. Femur XR showed a fracture of the lesser trochanteric with highly suggestive intratrochanteric fracture, transverse fracture of the proximal metaphyseal of the femur at the level of the lesser trochanteric is not excluded . R knee XR showed no acute osseous abnormality. L knee XR showed possible fracture of an osteophyte in the superior patella, otherwise no acute abnormalities. CXR showed prominent bronchovascular markings in the lower l obes, otherwise appearance is unremarkable. Knee CT showed highly suggestive fracture osteophyte in the superior patella soft tissue swelling anterior to the quadriceps tendon suggestive of edema, postoperative changes in the distal femur. Hip CT showed comminuted fracture of the right intratrochanteric area of the femur, aneurysm in the distal aorta, proctitis is highly suggestive. Pt is seen and examined. Ortho is consulted. Due to multiple comorbidities- pt and family elected to proceed with conservative measures. Will consult care coordiantion bess croft comfort measures/hospice as family were discussing this as an options. pt is resting on his rt side- states taht is least painful position. IV fluids for now. not much appetite. Review of Systems Review of Systems: All systems reviewed & are unremarkable except as noted in HPI and below (limited due to somnolence) Exam Narrative: poorly papable DP pulses. slight synaotic appearance to his bilateral feet. Const: General: comfortable and no acute distress Other: , male, chronically ill-appearing, cachectic HENMT: Face/Nose/Sinus: Normal nares present Mouth: Yes dry mucous membranes Eyes: General: appearance normal, both eyes and all related structures Sclera: sclerae normal Pupils: Equal, round and reactive pupils present EOM: EOMs intact bilaterally Resp: Effort & Inspection: normal respiratory effort Auscultation: clear to auscultation bilaterally Cardio: Rate: regular rate Rhythm: regular rhythm Other: S1-S2 present without murmur, rub, ectopy GI: Other: Abdomen soft, nondistended, nontender. Normoactive bowel sounds in all quadrants. Skin: General skin exam: no rashes or lesions noted Wounds: no wounds Other: Slight purple hue to bilateral feet, blanches. Neuro: Cranial nerves: Yes Equal, round and reactive pupils present Other: Very somnolent, received Dilaudid prior to exam. A&O times 3-4 at baseline. Moving all extremities. Sensation intact. Extrem: Other: DP pulses nonpalpable. Dopplerable bilaterally. Psych: Other: Unable to assess due to somnolence. Objective Data Vital Signs Vital Signs: Vital Signs - 24 hr 01/01/25 20:00 01/01/25 21:44 01/02/25 06:00 Temperature 98.3 F 97.6 F Pulse Rate 66 75 Respiratory Rate 16 18 Blood Pressure 119/45 L 155/54 H Pulse Oximetry 98 99 Oxygen Delivery Room Air 01/02/25 09:25 01/02/25 09:50 01/02/25 13:39 Temperature 97.1 F L 97.3 F L Pulse Rate 69 58 L Respiratory Rate 16 16 Blood Pressure 130/50 L 125/51 L Pulse Oximetry 100 95 Oxygen Delivery Room Air Intake/Output Intake/Output: Intake & Output 12/30/24 12/31/24 01/01/25 01/02/25 23:59 23:59 23:59 23:59 Intake Total 1000 1497.9 1435 Output Total 825 600 Balance 1000 672.9 835 Meds/Results Medications: Active Medications Generic Name Dose Route Start Last Admin Trade Name Freq PRN Reason Stop Dose Admin Acetaminophen 650 mg 12/31/24 13:35 Acetaminophen 325 Mg Tablet PO Q4H PRN Mild Pain (1-3) or Fever Hydrocodone Bitart/Acetaminophen 1 tab 12/31/24 15:09 Hydrocodone/Acetaminophen (*Crx) 5-325 Mg Tablet PO Q6H PRN Pain Rated 4-6 Hydrocodone Bitart/Acetaminophen 1 tab 12/31/24 17:12 Hydrocodone/Acetaminophen (*Crx) 10-325 Mg Tablet PO Q8H PRN Pain Rated 7-10 Aspirin 81 mg 01/01/25 09:00 01/02/25 09:25 Aspirin 81 Mg Chewable Tablet PO 81 mg DAILY SHAHRIAR Administration Atorvastatin Calcium 20 mg 01/01/25 09:00 01/02/25 09:25 Atorvastatin 20 Mg Tablet PO 20 mg QAM SHAHRIAR Administration Escitalopram Oxalate 20 mg 01/01/25 09:00 01/02/25 09:25 Escitalopram Oxalate 10 Mg Tablet PO 20 mg DAILY SHAHRIAR Administration Hydromorphone HCl 0.5 mg 12/31/24 13:35 01/02/25 06:19 Hydromorphone Hcl Inj (*Crx) 1 Mg/Ml Syr IV PUSH 0.5 mg Q4H PRN Administration Pain Rated 7-10 Sodium Chloride 1,000 mls @ 125 mls/hr 12/31/24 13:35 01/02/25 05:32 Normal Saline Iv IV CONT 125 mls/hr .Q8H SHAHRIAR Administration Lidocaine 1 patch 12/31/24 17:12 Lidocaine 5% Patch TRANSDERM DAILY PRN Pain Megestrol Acetate 400 mg 01/01/25 09:00 01/02/25 09:25 Megestrol Acetate (*Chemo) Oral Susp 40 Mg/Ml Syr PO 400 mg DAILY SHAHRIAR Administration Mirtazapine 15 mg 12/31/24 21:00 01/01/25 20:18 Mirtazapine Soltab 15 Mg Tab.Disper PO 15 mg HS SHAHRIAR Administration Miscellaneous Information 0 each 12/31/24 00:01 Clarify Linked Order For Sucralfate- Not Sure Why Its Rectal??? XX 01/30/25 00:00 CLARIFY SHAHRIAR Naloxone HCl 0.1 mg 12/31/24 15:09 Naloxone Hcl 0.4 Mg/Ml Vial IV PUSH Q5MIN PRN Sedation Ondansetron HCl 4 mg 12/31/24 13:35 Ondansetron Inj 4 Mg/2 Ml Vial IV PUSH Q4H PRN Nausea Pantoprazole Sodium 40 mg 12/31/24 17:35 01/02/25 09:25 Pantoprazole 40 Mg Tablet PO 40 mg BID SHAHRIAR Administration Senna 25.8 mg 12/31/24 21:00 01/01/25 20:18 Sennosides 8.6 Mg Tablet PO 25.8 mg HS SHAHRIAR Administration Sucralfate 1,000 mg 12/31/24 17:12 Sucralfate Susp 100 Mg/Ml 10 Ml Udc PO ACHS PRN dysphagia Radiology Results: ITS Impressions Femur X-Ray 12/31/24 11:13 IMPRESSION: Fracture of the lesser trochanter with highly suggestive intertrochanteric fracture. Transverse fracture in the proximal metaphysis of the femur at the level of the lesser trochanter is not excluded. Knee X-Ray 12/31/24 11:17 IMPRESSION: Possible fracture of an osteophyte in the superior patella. Otherwise no acute osseous abnormalities. Chest X-Ray 12/31/24 11:22 IMPRESSION: Prominent bronchovascular markings in the lower lobes. Other appearances are unremarkable. Knee CT 12/31/24 13:45 IMPRESSION: Highly suggestive fracture osteophyte in the superior patella with soft tissue swelling anterior to the quadriceps tendon suggestive of edema. Postoperative changes in the distal femur. Hip CT 12/31/24 13:51 IMPRESSION: Comminuted fracture in the right intertrochanteric area of the femur. 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 Proctitis is highly suggestive. Quality VTE Prophylaxis VTE prophylaxis: mechanical ordered
[2025-01-02] MEDS: ACETAMINOPHEN 325 MG TABLET 650 MG PO (15:59)
[2025-01-02] MEDS: HYDROcodone/acetaminophen (*CRX) 5-325 MG TABLET 1 TAB PO (17:07)
[2025-01-02 20:31] VITALS: BP 132/53; PULSE 77; RESP 18; TEMP 36.9; O2SAT 99
[2025-01-02] MEDS: MIRTAZAPINE SOLTAB 15 MG TAB.DISPER PO (21:00)
[2025-01-02] MEDS: SENNOSIDES 8.6 MG TABLET 25.8 MG PO (21:00)
[2025-01-03 05:39] VITALS: BP 124/73; PULSE 57; RESP 17; TEMP 36.8; O2SAT 98
[2025-01-03] MEDS: ACETAMINOPHEN 325 MG TABLET 650 MG PO (09:21)
[2025-01-03] MEDS: MEGESTROL ACETATE (*CHEMO) ORAL SUSP 40 MG/ML SYR 400 MG PO (09:22)
[2025-01-03] MEDS: ATORVASTATIN 20 MG TABLET PO (09:22)
[2025-01-03] MEDS: PANTOPRAZOLE 40 MG TABLET PO (09:22)
[2025-01-03] MEDS: ASPIRIN 81 MG CHEWABLE TABLET PO (09:22)
[2025-01-03] MEDS: ESCITALOPRAM OXALATE 10 MG TABLET 20 MG PO (09:22)
--- NOTE | 2025-01-03 13:21 | P.DS_ITS ---
DS: Admitting Diagnosis Discharge Date 01/03/2025 Admitting Diagnosis Intertrochanteric fracture of right femur Left patella fracture Weakness Primary adenocarcinoma of esophagus LILO DS: Discharge Diagnosis Discharge Diagnosis (1) Intertrochanteric fracture of right femur: Qualifiers: Encounter type: initial encounter Fracture alignment: displaced Fracture type: closed Qualified Code(s): S72.141A - Displaced intertrochanteric fracture of right femur, initial encounter for closed fracture Code(s): S72.141A - Displaced intertrochanteric fracture of right femur, initial encounter for closed fracture Status: Acute (2) Left patella fracture: Qualifiers: Encounter type: initial encounter Fracture alignment: nondisplaced Fracture morphology: osteochondral Fracture type: closed Qualified Code(s): S82.015A - Nondisplaced osteochondral fracture of left patella, initial encounter for closed fracture Code(s): S82.002A - Unspecified fracture of left patella, initial encounter for closed fracture Status: Suspected (3) Weakness: Code(s): R53.1 - Weakness Status: Acute (4) Primary adenocarcinoma of esophagus with metastasis: Code(s): C15.9 - Malignant neoplasm of esophagus, unspecified Status: Acute (5) Obstructive sleep apnea (adult) (pediatric): Code(s): G47.33 - Obstructive sleep apnea (adult) (pediatric) Status: Chronic DS: Summary Hospital Course Reason for hospitalization: Intertrochanteric fracture of right femur Left patella fracture Weakness Primary adenocarcinoma of esophagus LILO Hospital Course: 79 year old male with past medical history of anemia, RLS, sleep apnea, mild pulmonary emphysema, esophageal cancer (stage IV w/ mets to liver, lung, diaphragm, lymph nodes S/P chemotherapy and immunotherapy), HLD, osteoporosis, aortic stenosis, diastolic dysfunction, spinal stenosis, stenosis of the bilateral carotid arteries, BPH, GERD, peripheral vascular disease, hypertension, coronary artery disease presents to the hospital with a mechanical ground level fall. He denies neck pain or back pain (that is changed from his chronic pain to his back). Post fall he reports right hip and bilateral knee pain. He is not currently on anticoagulation. Vital signs remained stable. Femur x-ray showed fracture of the lesser trochanter with highly suggestive intertrochanteric fracture. Transverse fracture in the proximal metaphysis of the femur at the level of the lesser trochanter is not excluded. Left knee x- ray showed possible fracture of an osteophyte in the superior patella. Hip CT showed a comminuted fracture in the right inter trochanteric area the femur. Knee CT was highly suggestive for a fracture osteophyte in the superior patella with soft tissue swelling anterior to the quadriceps tendon suggestive of edema. Chest x-ray showed a prominent bronchovascular markings in the lower lobes otherwise unremarkable. Chest/abdomen CT showed no cardiopulmonary pathology bu t multiple metastatic lesions in the liver. Ortho was consulted and both Dr. Cortes and family agree with conservative treatment. Patient and his family decided to move forward with hospice care. They have been set up with home hospice through [facility]. All necessary equipment has been sent to patients house. Patient states he is ready to move forward with hospice today and go home. He has no complaints denying chest pain, shortness of breath, palpitations, nausea/vomiting and abdominal pain. He states that pain is well controlled on the current regimen. Discussed with patient that medication adjustments will be made per hospice upon arrival home. Patient discharged [facility] with [facility] in a stable but terminal condition. Status at Discharge Functional status at discharge: bed bound Time Spent with Patient Time attestation: Total time spent providing and/or coordinating discharge services: Time spent: Greater than 30 minutes Exam Narrative: AF HR 57 RR 17 Spo2 98 BP 124/73 General: frail male in no acute respiratory distress who is nontoxic appearing, lying semi recumbent in bed. HEENT: Normocephalic. Atraumatic. Extraocular movement intact. Sclera clear and anicteric.No facial asymmetry. Chest: Lungs are clear to auscultation bilaterally. CV: Heart was regular rate and rhythm. Abd: Abdomen was soft. Nontender. Nondistended. Positive bowel sounds. Ext: No clubbing, cyanosis, or edema. DP pulses bilaterally. Neuro: Patient is alert and oriented x4. Speech is clear. DS: Data Data Completed and Pending Completed studies during hospitalization: Chest/abdomen CT Hip CT Knee CT Chest x-ray Knee x-ray Knee x-ray Femur x-ray Discharge Plan Discharge Attending physician on discharge: Ann Campos Consulting providers: Jude Cortes Discharging Clinician: Radha Krishna Anticipated Discharge Date/Time: 01/03/25 13:08 Patient Disposition: Hospice - Home Activity: as tolerated Diet: heart healthy Discharge Instructions: Discharge disposition: Patient admitted to the hospital following a fall resulting in a right femur and patella fracture Evaluated by orthopedics and no surgical intervention at this time as patient is a poor candidate Patient going home with [facility] Medications to be adjusted per hospice Thank you for choosing [facility] for your healthcare needs Patient Instructions: Hospice Care (GEN) Patient Language: Cymro Stand Alone Forms: General Discharge Information Discharge Medications: Continued potassium chloride [K-Tab] 20 mEq tablet extended release 20 meq PO DAILY omeprazole 40 mg capsule,delayed release(DR/EC) 40 mg PO BID Qty: 60 3RF cholecalciferol (vitamin D3) 50 mcg (2,000 unit) capsule 25 mcg PO DAILY cranberry 500 mg capsule 500 mg PO DAILY Rx Instructions: administer with meals cyanocobalamin (vitamin B-12) 1,000 mcg Tablet 1,000 mcg PO DAILY morphine See Rx Instructions .ROUTE .COMPLEX Patient Comments: pain pump-recalled from patient history Rx Instructions: Morphine pain pump in left abdomen for back pain nitroglycerin 0.4 mg tablet, sublingual 0.4 mg sublingual Q5-10M PRN (Reason: Chest Pain) aspirin 81 mg Tablet 81 mg PO DAILY Patient Comments: ........ senna 8.6 mg capsule 25.8 mg PO HS hydrocodone-acetaminophen 10-325 mg tablet 1 tablet PO Q8H PRN (Reason: Pain) naproxen 375 mg tablet 375 mg PO BID PRN (Reason: pain) mirtazapine 30 mg tablet 15 mg PO HS lidocaine 5 % adhesive patch,medicated 1 patch transdermal DAILY PRN (Reason: Pain) Rx Instructions: Apply for pain 12 hrs on and off for 12 hrs sucralfate [Carafate] 100 mg/mL suspension 1 g PO ACHS PRN (Reason: dysphagia) ferrous sulfate 325 mg (65 mg iron) tablet 325 mg PO DAILY atorvastatin 20 mg tablet See Rx Instructions .ROUTE .COMPLEX Qty: 90 0RF Dose Instruction: TAKE 1 TABLET BY MOUTH DAILY Rx Instructions: TAKE 1 TABLET BY MOUTH DAILY escitalopram oxalate 20 mg tablet 20 mg PO DAILY Qty: 90 0RF megestrol 400 mg/10 mL (40 mg/mL) suspension 400 mg PO DAILY cetirizine 10 mg Tablet 10 mg PO DAILY PRN (Reason: Allergy Symptoms) Date of admission: 12/31/24 13:35 Primary Care Provider: Alejandro Flynn Admitting Provider: Shakeel Pro Attending physician on admission: Radha Krishna Condition: Terminal Hospitalist MIPS Heart Failure (Exclusion) Patient has history of Heart Transplant or Left Ventricular Assistive Device?: No IF YES, STOP HERE Heart Failure (Qualifier) Patient has current or prior documentation of LVEF less than or equal to 40%, or mod/servere depressed LVSF?: No IF NO, STOP HERE
[2025-01-03 14:00] VITALS: BP 122/72; PULSE 69; RESP 19; TEMP 36.9; O2SAT 100
[2025-01-03] MEDS: HYDROcodone/acetaminophen (*CRX) 10-325 MG TABLET 1 TAB PO (16:40)
== END 2025-01-03 17:00 | disposition hospice, home (50) | DRG 536 ==
LOC: ANHED 13:19 → ANH2MED 14:15
PROVIDERS: Student in an Organized Health Care Education/Training Program; Admitting Provider General Practice; Emergency Provider Emergency Medicine; PCP Internal Medicine; Visit Provider Student in an Organized Health Care Education/Training Program
DX: S72.141A Displaced intertrochanteric fracture of right femur, initial encounter for closed fracture (principal); S82.015A Nondisplaced osteochondral fracture of left patella, initial encounter for closed fracture; C15.9 Malignant neoplasm of esophagus, unspecified; C78.00 Secondary malignant neoplasm of unspecified lung; C78.7 Secondary malignant neoplasm of liver and intrahepatic bile duct; C79.89 Secondary malignant neoplasm of other specified sites; C78.89 Secondary malignant neoplasm of other digestive organs; W19.XXXA Unspecified fall, initial encounter; E78.2 Mixed hyperlipidemia; G25.81 Restless legs syndrome; G89.29 Other chronic pain; G47.33 Obstructive sleep apnea (adult) (pediatric); I35.0 Nonrheumatic aortic (valve) stenosis; I73.9 Peripheral vascular disease, unspecified; I10 Essential (primary) hypertension; I25.10 Atherosclerotic heart disease of native coronary artery without angina pectoris; J43.9 Emphysema, unspecified; K21.9 Gastro-esophageal reflux disease without esophagitis; M81.0 Age-related osteoporosis without current pathological fracture; M48.00 Spinal stenosis, site unspecified; N40.0 Benign prostatic hyperplasia without lower urinary tract symptoms; W18.30XA Fall on same level, unspecified, initial encounter; Z92.21 Personal history of antineoplastic chemotherapy; Z90.49 Acquired absence of other specified parts of digestive tract; Z95.5 Presence of coronary angioplasty implant and graft; Z87.891 Personal history of nicotine dependence; Z66 Do not resuscitate
CPT/HCPCS: 36415; 71045; 71250; 73552; 73560; 73562; 73700; 74150; 80048; 80053; 81001; 85025; 85610; 85730; 93005; 96374; 96375; 99212; 99285; A9270; G0463; J1171; J2405; J7030